=== PATIENT | female | born 1955 | race Caucasian/White ===

== ENCOUNTER 2017-03-17 08:21 | Inpatient (IN) | payer BC, OTHER ==
[2017-03-17] MEDS ORDERED: diltiaZEM INJ 5 MG/ML VIAL IVP STA (08:38)
[2017-03-17] MEDS ORDERED: diltiaZEM INJ 125 MG in DEXTROSE 5% 100 ML IV STA (08:40)
[2017-03-17] MEDS ORDERED: SODIUM CHLORIDE FLUSH 0.9% 10 ML SYRINGE IVP ONE (08:42)
[2017-03-17] MEDS ORDERED: diltiaZEM INJ 5 MG/ML VIAL ONE (08:42)
--- NOTE | 2017-03-17 08:42 | ED Physician Documentation ---
History of Present Illness - Stated complaint Stated Complaint: SOA - Chief complaint Chief Complaint: Resp - History obtained from History obtained from: Patient, Friend - History of Present Illness Timing: Today Pain level max: 0 Pain level now: 0 Improved by: nothing Worsened by: nothing - Additonal information Additional information: Patient is a 61-year-old female with a history of COPD who presents to the emergency department stating that she cannot breathe this morning. States this started approximately an hour or 2 prior to arrival. Is not having chest pain. Does feel like her heart is beating fast. Does not have a history of atrial fibrillation. Does not use oxygen at home. States she quit smoking approximately 2 weeks ago. Did not take her medications this morning Review of Systems Ten Systems: 10 systems reviewed and negative Constitutional: denies: Fever, Chills Ears: denies: Ear pain Nose: denies: Rhinorrhea / runny nose, Congestion Throat: denies: Sore throat Cardiac: denies: Chest pain / pressure Respiratory: denies: Cough GI: denies: Abdominal Pain, Nausea, Vomiting, Diarrhea : denies: Dysuria Skin: denies: Rash Musculoskeletal: denies: Neck pain, Back pain Neurologic: denies: Headache PD PAST MEDICAL HISTORY - Past Medical History Cardiovascular: Hypertension Respiratory: COPD Neuro: None Endocrine/Autoimmune: None GI: None : None HEENT: None Psych: Anxiety Musculoskeletal: None Derm: None - Past Surgical History Past Surgical History: Yes - Present Medications Home Medications: Ambulatory Orders Medication Instructions Recorded Confirmed Atorvastatin Calcium [Lipitor] 10 mg PO QPM 10/27/12 07/14/15 Lisinopril [Zestril] 40 mg PO DAILY 10/27/12 07/13/15 cloNIDine [Catapres] 0.2 mg PO BID 10/27/12 07/13/15 Amlodipine Besylate [Norvasc] 2.5 mg PO QPM 07/14/15 07/14/15 Carvedilol 25 mg PO BID 07/14/15 07/14/15 Ipratropium/Albuterol [Duoneb] 0.5 - 3 mg INH BID PRN 07/14/15 07/14/15 Omeprazole [PriLOSEC] 20 mg PO DAILY 07/14/15 07/14/15 - Allergies Allergies/Adverse Reactions: Allergies Allergy/AdvReac Type Severity Reaction Status Date / Time No Known Drug Allergies Allergy Verified 10/27/12 09:04 - Social History Does the pt smoke?: Yes Smoking Status: Current every day smoker Does the pt drink ETOH?: No Does the pt have substance abuse?: No PD ED PE NORMAL - Vitals Vital signs reviewed: Yes - General General: Alert and oriented X 3, Other (appears uncomfortable) - HEENT HEENT: Moist mucous membranes - Neck Neck: Supple, no meningeal sign - Cardiac Cardiac: Other (tachycardic) - Respiratory Respiratory: No respiratory distress, Other (diminished BS bilaterally.) - Abdomen Abdomen: Soft, Non tender, Non distended - Derm Derm: Warm and dry - Extremities Extremities: No edema, No calf tenderness / cord - Neuro Neuro: Alert and oriented X 3 Results - Vitals Vitals: Vital Signs - 24 hr 03/17/17 03/17/17 03/17/17 08:29 08:41 08:46 Temperature 36.8 C Heart Rate 191 H 190 H 128 H Respiratory 20 25 H 26 H Rate Blood Pressure 131/96 H 124/93 H O2 Saturation 89 L 92 93 03/17/17 03/17/17 03/17/17 08:50 08:51 09:11 Temperature Heart Rate 122 H Respiratory Rate Blood Pressure 96/72 77/60 L O2 Saturation 87 L 92 03/17/17 03/17/17 03/17/17 09:32 09:57 10:05 Temperature 37.1 C Heart Rate 127 H 129 H 112 H Respiratory 26 H Rate Blood Pressure 95/72 75/53 L 82/57 L O2 Saturation 95 95 Oxygen O2 Source Nasal cannula Oxygen Flow Rate 2 - EKG (time done) 0836 Rate: Rate (enter#) (199) Rhythm: Atrial fibrillation (w/ RVR) [place]: Normal QRS: Normal Ischemia: ST depression (rate related changes) - Labs Labs: Laboratory Tests 03/17/17 03/17/17 03/17/17 08:35 08:35 08:35 WBC 15.4 H RBC 4.14 L Hgb 12.1 Hct 36.9 L MCV 89.2 MCH 29.2 MCHC 32.8 RDW 18.6 H Plt Count 431 MPV 7.2 L Neut # 10.5 H Lymph # 3.1 [place] # 1.5 H Eos # 0.0 Baso # 0.2 H Absolute Nucleated RBC 0.01 Nucleated RBC % 0.1 PT INR Sodium 130 L Potassium 4.5 Chloride 92 L Carbon Dioxide 23 Anion Gap 15.0 H BUN 29 H Creatinine 1.4 H Estimated GFR (MDRD) 38 L Glucose 144 H Lactic Acid Calcium 9.2 Phosphorus 4.2 Magnesium 1.8 Total Bilirubin 0.8 AST 17 ALT 10 Alkaline Phosphatase 85 B-Natriuretic Peptide Total Protein 7.4 Albumin 3.5 Globulin 3.9 Albumin/Globulin Ratio 0.9 L Lipase 18 L 03/17/17 03/17/17 03/17/17 08:35 08:35 09:53 WBC RBC Hgb Hct MCV MCH MCHC RDW Plt Count MPV Neut # Lymph # [place] # Eos # Baso # Absolute Nucleated RBC Nucleated RBC % PT 12.3 INR 1.1 Sodium Potassium Chloride Carbon Dioxide Anion Gap BUN Creatinine Estimated GFR (MDRD) Glucose Lactic Acid 1.1 Calcium Phosphorus Magnesium Total Bilirubin AST ALT Alkaline Phosphatase B-Natriuretic Peptide 283 H Total Protein Albumin Globulin Albumin/Globulin Ratio Lipase - Rads (name of study) cxr Radiology: Prelim report reviewed, EMP read contemporaneously, See rad report ( Suspect mild interstitial edema or pneumonitis superimposed on emphysema) PD MEDICAL DECISION MAKING - ED course Complexity details: reviewed old records, reviewed results, re-evaluated patient , considered differential, d/w patient, d/w family, d/w showroom consultant ED course: Patient is a 61-year-old female who presents to the emergency department with dyspnea, found to be in atrial fibrillation with rapid ventricular response, heart rates 180-200. She was given diltiazem and heart rate decreased to 110- 130. Was followed up by oral diltiazem which did rate control her well. She was mildly hypotensive, but asymptomatic. States that her blood pressure is always low. States normal systolic is 90-100. Does not have a history of atrial fibrillation. Discussed the case with the hospitalist who accepts for admission. This document was made in part using voice recognition software. While efforts are made to proofread this document, sound alike and grammatical errors may occur. Departure - Departure Disposition: 64 [facility] DC/Xfer Clinical Impression: Atrial fibrillation with RVR, New onset a-fib Condition: Stable Discharge Date/Time: 03/17/17 11:19
[2017-03-17 08:54] LABS: BASOPHILS # (AUTO) 0.2 10^3/uL (0.0-0.1); BASOPHILS % (AUTO) 1.4 %; EOSINOPHILS % (AUTO) 0.1 %; HCT - HEMATOCRIT 36.9 % (37.0-47.0); HGB - HEMOGLOBIN 12.1 g/dL (12.0-16.0); LYMPHOCYTES # (AUTO) 3.1 10^3/uL (1.5-3.5); LYMPHOCYTES % (AUTO) 20.2 %; MEAN CORPUSCULAR HEMOGLOBIN 29.2 pg (27.0-31.0); MEAN CORPUSCULAR HGB CONC 32.8 g/dL (32.0-36.0); MEAN CORPUSCULAR VOLUME 89.2 fL (81.0-99.0); MEAN PLATELET VOLUME 7.2 fL (7.9-10.8); MONOCYTES # (AUTO) 1.5 10^3/uL (0.0-1.0); MONOCYTES % (AUTO) 9.7 %; NEUTROPHILS # (AUTO) 10.5 10^3/uL (1.5-6.6); NEUTROPHILS % (AUTO) 68.6 %; NUCLEATED RED BLOOD CELLS AUTO 0.1 /100WBC; RED BLOOD COUNT 4.14 10^6/uL (4.20-5.40); RED CELL DISTRIBUTION WIDTH 18.6 % (12.0-15.0); UNCORRECTED WHITE BLOOD COUNT 15.4 x10^3/uL; WHITE BLOOD COUNT 15.4 x10^3/uL (4.8-10.8)
[2017-03-17] MEDS ORDERED: SODIUM CHLORIDE 0.9% 1,000 ML IV ONE ×2 (09:05)
[2017-03-17 09:07] LABS: MAGNESIUM 1.8 mg/dL (1.7-2.8); PHOSPHORUS 4.2 mg/dL (2.5-4.6)
[2017-03-17 09:08] LABS: ALBUMIN/GLOBULIN RATIO 0.9 (1.0-2.2); BILIRUBIN,TOTAL 0.8 mg/dL (0.2-1.0); CALCIUM 9.2 mg/dL (8.5-10.3); CREATININE 1.4 mg/dL (0.4-1.0); POTASSIUM 4.5 mmol/L (3.5-5.0); TOTAL PROTEIN 7.4 g/dL (6.7-8.2)
--- NOTE | 2017-03-17 09:22 | XRAY Preliminary Report ---
Exam: XR Chest 1 View IMPRESSION: Suspect mild interstitial edema or pneumonitis superimposed on emphysema. [facility] SITE ID: [id number]
--- NOTE | 2017-03-17 09:25 | XRAY Report ---
EXAM: CHEST RADIOGRAPHY EXAM DATE: 03/17/2017 08:56 AM. CLINICAL HISTORY: Dyspnea, increased HR. COMPARISON: 08/06/2015. TECHNIQUE: 1 view. FINDINGS: Lungs/Pleura: Interstitial markings are increased consistent with mild edema or pneumonitis. This is superimposed on underlying emphysema. Left basilar atelectasis is likely. No pneumothorax or pleural effusion Mediastinum: The cardia mediastinal contour is again noted to be prominent, the appearance is accentu ated by kyphosis. IMPRESSION: Suspect mild interstitial edema or pneumonitis superimposed on emphysema. [facility] Referring Provider Line: [phone] SITE ID: [id number]
[2017-03-17] MEDS ORDERED: diltiaZEM 30 MG TABLET PO STA (10:13)
[2017-03-17] MEDS ORDERED: ACETAMINOPHEN 325 MG TABLET PO PRN (10:54)
[2017-03-17] MEDS ORDERED: PROCHLORPERAZINE 10 MG/2 ML VIAL IVP PRN (10:54)
[2017-03-17] MEDS ORDERED: diltiaZEM 30 MG TABLET PO ONE (11:07)
[2017-03-17 11:32] LABS: INR 1.1 (0.8-1.2); PT - PROTHROMBIN TIME 12.3 secs (9.9-12.6)
[2017-03-17] MEDS ORDERED: DIGOXIN 500 MCG/2 ML AMP IVP SCH ×2 (14:00→17:00)
[2017-03-17] MEDS ORDERED: diltiaZEM 30 MG TABLET PO SCH ×2 (14:00→15:00)
[2017-03-17] MEDS ORDERED: DEXTROSE 5% 100 ML IV ONE (14:21)
[2017-03-17] MEDS: ENOXAPARIN 40 MG/0.4 ML SYRINGE SUBQ SCH ×2 (14:29→21:49)
[2017-03-17] MEDS: SODIUM CHLORIDE FLUSH 0.9% 10 ML SYRINGE IVP SCH ×2 (14:40→22:18)
[2017-03-17] MEDS: FAMOTIDINE 20 MG TABLET PO SCH (14:44)
[2017-03-17] MEDS ORDERED: AZITHROMYCIN 250 MG TABLET PO SCH (15:00)
[2017-03-17] MEDS: guaiFENesin 600 MG TABLET PO SCH ×2 (15:18→21:50)
[2017-03-17] MEDS: IPRATROPIUM 0.2 MG/ML NEB INH SCH ×2 (17:25→19:15)
[2017-03-17] MEDS: LEVALBUTEROL 1.25 MG INH PRN ×2 (17:25→19:15)
[2017-03-17] MEDS ORDERED: IPRATROPIUM/ALBUTEROL 3 ML NEB INH SCH (18:00)
[2017-03-17] MEDS: LORazepam 0.5 MG TABLET PO PRN (18:05)
[2017-03-17] MEDS: diltiaZEM 30 MG TABLET PO SCH (21:49)
[2017-03-17] MEDS: methylPREDNISolone SUCCINATE 125 MG/2 ML VIAL IVP SCH (21:50)
--- NOTE | 2017-03-18 01:13 | HISTORY & PHYSICAL EXAMINATION ---
DATE OF ADMISSION: 03/17/2017 HISTORY OF PRESENT ILLNESS: This is a 61-year-old white female with a heavy smoking history, and she has intermittently stopped. She has been told that she has emphysema but does not know the severity. She does not use oxygen at home. She has a history of Takotsubo cardiomyopathy, for which she is on carvedilol and FORTINO inhibitors. The status of the EF is not known by her. The patient presents with upper respiratory congestion including a cough with minimal sputum production, no fever, but marked shortness of breath with wheezing and elevated respiratory rate with "panic attack." She has never had anxiety or panic attacks before. She was found to have wheezing in the emergency room and also to be in new onset of atrial fibrillation with a rate of 180. She received IV Cardizem bolus of 20 mg, which slowed her heart rate down to the 110 range, still in atrial fibrillation. She does not feel palpitations. She denies angina with these symptoms. She is compliant with her medications. MEDICATIONS AT HOME 1. Lipitor. 2. Zestril. 3. Clonidine. 4. Norvasc. 5. Carvedilol 25 p.o. b.i.d. 6. DuoNeb. 7. Prilosec. ALLERGIES: NONE. SOCIAL HISTORY: She is a smoker of a pack a day, uses no alcohol, denies drug use. REVIEW OF SYSTEMS: A complete 10-point review of systems was done, and the pertinent positives or negatives are in the HPI and the rest of review of systems is negative. FAMILY HISTORY: No family history of coronary disease or diabetes. PHYSICAL EXAMINATION GENERAL: Reveals a white female who appears older than her age. She is in mild respiratory distress and has increased respiratory rate. VITAL SIGNS: Blood pressure 85/50, heart rate is 100-130 in atrial fibrillation. She is afebrile. HEENT: Shows moist oral mucosa and rubor of her cheeks and lips. NECK: Shows positive JVD in a vertical position. CHEST: Diffuse wheezing with a prolonged expiratory phase. No rales or rhonchi are heard. HEART: Sounds are distant. No murmurs heard. ABDOMEN: Soft. EXTREMITIES: No clubbing, cyanosis, or edema. NEUROLOGIC: Grossly intact. LABORATORIES: Troponin is not detected. Sodium 130, potassium 4.5, BUN 29, creatinine 1.4. Liver tests normal. BNP 283. White blood count 15.4 with a left shift, hemoglobin 12.2, platelet count normal. INR normal. Chest x-ray: CHF. EKG: Atrial fibrillation with a very rapid rate, non-specific diffuse ST-T-wave changes. A repeat EKG shows slightly slower atrial fibrillation, but similar ST- T abnormality. IMPRESSION/DIAGNOSIS 1. New onset of atrial fibrillation with rapid ventricular rate. 2. Hypotension following Cardizem iv bolus given in ER 3. Chronic obstructive pulmonary disease exacerbation with probable bronchitis ( cough). 4. New congestive heart failure by chest x-ray. 5. Remote history of Takotsubo cardiomyopathy, on Coreg and angiotensin- converting enzyme inhibitors. 6. Tobacco abuse. 7. Mild renal insufficiency. PLAN: Since the patient is warm and dry, her low BP can be managed in a Med-Srg room. Place the patient on telemetry and continue to treat the atrial fibrillation for rate control, using digoxin with a loading dose. Due to the low BP, start low dose spread-out p.o. Cardizem for the rate control. Start the patient on therapeutic doses of Lovenox given that her CHADS score is 2 (CHF and possible history of hypertension). Start the patient on Zithromax for bronchitis along with inhalers (Xoponex preferred) and IV steroids for the COPD exacerbation. Obtain records from prior cardiac work-up, if possible. Obtain an echo to reestablish LVEF and rule out Takotsubo continued remodeling. Follow her electrolytes, magnesium and creatinine as diuresis continues. JOB #: [id number] EXT JOB #:[id number] ISRA
[2017-03-18] MEDS: guaiFENesin/DEXTROMETHORPHAN 10 ML UDC PO PRN ×2 (01:42→20:26)
[2017-03-18] MEDS: diltiaZEM 30 MG TABLET PO SCH ×4 (01:42→20:25)
[2017-03-18] MEDS: LEVALBUTEROL 1.25 MG INH PRN ×2 (02:00→07:30)
[2017-03-18] MEDS: SODIUM CHLORIDE INHALATION 3 ML NEB INH PRN (02:00)
[2017-03-18] MEDS: BENZOCAINE/MENTHOL LOZENGE MM PRN ×2 (03:29→05:49)
[2017-03-18] MEDS ORDERED: BENZOCAINE/MENTHOL LOZENGE MM ONE ×2 (03:31→05:51)
[2017-03-18] MEDS: SODIUM CHLORIDE FLUSH 0.9% 10 ML SYRINGE IVP SCH ×3 (05:38→17:20)
[2017-03-18] MEDS: methylPREDNISolone SUCCINATE 125 MG/2 ML VIAL IVP SCH ×3 (05:38→21:00)
[2017-03-18] MEDS: SODIUM CHLORIDE FLUSH 0.9% 10 ML SYRINGE IVP PRN (05:39)
[2017-03-18 06:30] LABS: CALCIUM 8.6 mg/dL (8.5-10.3); CREATININE 0.6 mg/dL (0.4-1.0); POTASSIUM 4.7 mmol/L (3.5-5.0)
--- NOTE | 2017-03-18 06:41 | XRAY Preliminary Report ---
Exam: XR Chest 1 View IMPRESSION: 1. Cardiomegaly with mildly increased pulmonary opacities. [facility] SITE ID: [id number]
--- NOTE | 2017-03-18 06:43 | XRAY Report ---
EXAM: CHEST RADIOGRAPHY EXAM DATE: 03/18/2017 06:13 AM. CLINICAL HISTORY: Follow-up congestive heart failure. COMPARISON: 03/17/2017. TECHNIQUE: 1 view. FINDINGS: Lungs/Pleura: Mildly increased pulmonary opacities. Minimal if any pleural effusions. No pneumothorax . Mediastinum: Mild cardiomegaly. Aortic atherosclerosis. Other: None. IMPRESSION: 1. Cardiomegaly with mildly increased pulmonary opacities. [facility] Referring Provider Line: [phone] SITE ID: [id number]
[2017-03-18] MEDS: IPRATROPIUM 0.2 MG/ML NEB INH SCH ×4 (07:30→19:00)
[2017-03-18] MEDS ORDERED: FUROSEMIDE 20 MG/2 ML VIAL IVP SCH (09:00)
[2017-03-18] MEDS: AZITHROMYCIN 250 MG TABLET PO SCH (09:57)
[2017-03-18] MEDS: ENOXAPARIN 40 MG/0.4 ML SYRINGE SUBQ SCH (10:01)
[2017-03-18] MEDS: FAMOTIDINE 20 MG TABLET PO SCH (10:02)
[2017-03-18] MEDS: guaiFENesin 600 MG TABLET PO SCH ×2 (10:02→20:48)
[2017-03-18] MEDS: POLYETHYLENE GLYCOL 3350 17 GM PACKET PO SCH (10:03)
[2017-03-18] MEDS: LEVALBUTEROL 1.25 MG INH SCH ×3 (11:20→19:00)
--- NOTE | 2017-03-18 18:27 | PROVIDER PROGRESS NOTE ---
Assessment/Plan - Problem List (1) Atrial fibrillation with RVR Assessment/Plan: Continue Cardizem and will adjust to CD dose starting tomorrow Stop Lovenox and start Xarelto 20 mg po at dinner time due to CHADS score of 2 ( CHF and HTN) (2) COPD exacerbation Assessment/Plan: Improved on steroids, inhalers and antibiotics Will assess with increased activity Probable DCh tomorrow (3) Takotsubo cardiomyopathy Assessment/Plan: Normal LVEF but Pt still on Coreg and FORTINO-I - Current Meds Current Meds: Current Medications Generic Name Dose Route Start Last Admin Trade Name Freq PRN Reason Stop Dose Admin Azithromycin 250 mg 03/18/17 09:00 03/18/17 09:57 Zithromax PO 250 mg DAILY MATTHEW Administration Diltiazem HCl 30 mg 03/17/17 20:00 03/18/17 13:50 Cardizem PO 30 mg Q6H MATTHEW Administration Enoxaparin Sodium 40 mg 03/17/17 11:00 03/18/17 10:01 Lovenox SUBQ 40 mg BID MATTHEW Administration Famotidine 20 mg 03/17/17 11:00 03/18/17 10:02 Pepcid PO 20 mg DAILY MATTHEW Administration Furosemide 20 mg 03/18/17 09:00 03/18/17 10:25 Lasix Inj 20mg Vial IVP 20 mg DAILY MATTHEW Administration Guaifenesin 10 ml 03/17/17 14:59 03/18/17 01:42 Robitussin Dm PO 10 ml Q6HR PRN Administration Cough Guaifenesin 1,200 mg 03/17/17 15:00 03/18/17 10:02 Mucinex PO 1,200 mg BID MATTHEW Administration Ipratropium [place] 0.5 mg 03/18/17 11:00 03/18/17 16:30 Atrovent INH 0.5 mg RTQID MATTHEW Administration Levalbuterol HCl 1.25 mg 03/17/17 17:13 03/18/17 07:30 Xopenex INH 1.25 mg Q4H PRN Administration Wheezing Levalbuterol HCl 1.25 mg 03/18/17 11:00 03/18/17 16:30 Xopenex INH 1.25 mg RTQID MATTHEW Administration Lorazepam 0.5 mg 03/17/17 17:14 03/17/17 18:05 Ativan PO 0.5 mg Q6H PRN Administration Anxiety Methylprednisolone Sodium Succinate 80 mg 03/17/17 22:00 03/18/17 13:52 Solu-Medrol (125mg Vial) IVP 80 mg TID MATTHEW Administration Polyethylene Glycol 17 gm 03/18/17 09:00 03/18/17 10:03 Miralax PO Not Given DAILY MATTHEW Sodium Chloride 10 ml 03/17/17 10:54 03/18/17 05:39 Normal Saline Flush 0.9% IVP 10 ml PRN PRN Administration NEEDED PER PROVIDER ORDERS Sodium Chloride 10 ml 03/17/17 14:00 03/18/17 17:20 Normal Saline Flush 0.9% IVP 10 ml Q8HR MATTHEW Administration Sodium Chloride 3 ml 03/17/17 17:13 03/18/17 02:00 Normal Saline INH 3 ml PRN PRN Administration Levalbuterol treatment Throat Lozenges 1 lozenge 03/18/17 03:12 03/18/17 05:49 Cepacol MM 1 lozenge Q2HR PRN Administration Throat pain - Lab Result Fish Bone Diagrams: 03/17/17 08:35 03/18/17 06:09 - Additional Planning My Orders: My Active Orders 03/17/17 20:00 diltiaZEM [Cardizem] 30 mg PO Q6H 03/17/17 22:00 methylPREDNISolone SUCCINATE [SOLU-Medrol (125MG VIAL)] 80 mg IVP TID 03/18/17 03:12 Benzocaine/Menthol [Cepacol] 1 lozenge MM Q2HR PRN 03/18/17 09:00 Azithromycin [Zithromax] 250 mg PO DAILY FUROSEMIDE INJ 20mg VIAL [LASIX INJ 20mg VIAL] 20 mg IVP DAILY 03/18/17 11:00 Ipratropium [Atrovent] 0.5 mg INH RTQID Levalbuterol [Xopenex] 1.25 mg INH RTQID 03/18/17 16:10 Telemetry (24 Hour) [RC] Q4HR 03/19/17 05:00 BMP - BASIC METABOLIC PANEL [CHEM] DAILYLAB MAGNESIUM [CHEM] DAILYLAB Subjective - Subjective Patient Reports: Feeling Better, Resting Comfortably Nursing Reports: Other (Much improved with inhalers Overnight went into NSR In afternoon, wandering atrial pacemaker rhythm) Objective Vital Signs: Vital Signs - 24 hr 03/17/17 03/17/17 03/18/17 19:15 20:08 00:08 Temperature 37.3 C 37.0 C Heart Rate 86 Heart Rate [ 82 82 Brachial] Respiratory 18 16 18 Rate Blood Pressure Blood Pressure 86/45 L 110/73 [Right Brachial artery] O2 Saturation 96 94 03/18/17 03/18/17 03/18/17 01:42 02:00 05:00 Temperature 36.7 C Heart Rate 82 Heart Rate [ 75 Brachial] Respiratory 18 18 Rate Blood Pressure 103/73 Blood Pressure 112/70 [Right Brachial artery] O2 Saturation 96 03/18/17 03/18/17 03/18/17 07:30 07:39 09:57 Temperature 36.6 C Heart Rate 84 Heart Rate [ 78 Brachial] Respiratory 18 18 Rate Blood Pressure 105/80 Blood Pressure 125/82 H [Right Brachial artery] O2 Saturation 95 03/18/17 03/18/17 03/18/17 10:07 11:20 14:18 Temperature Heart Rate 82 Heart Rate [ 70 Brachial] Respiratory 18 18 Rate Blood Pressure Blood Pressure 105/80 [Right Brachial artery] O2 Saturation 92 85 L 03/18/17 03/18/17 15:54 16:30 Temperature 36.8 C Heart Rate 96 Heart Rate [ 87 Brachial] Respiratory 16 14 Rate Blood Pressure Blood Pressure 124/83 H [Right Brachial artery] O2 Saturation 4 L Oxygen O2 Source Nasal cannula I&O (Last 24 Hrs): Intake and Output Totals x24h 03/16/17 03/17/17 03/18/17 23:59 23:59 23:59 Intake Total 1370 1000 Balance 1370 1000 General: Alert, Oriented x3 HEENT: Mucous membr. moist/pink Neck: Supple Cardiovascular: Regular rate, No murmurs Respiratory: Other (Prolonged expiratory phase but no wheezing) Abdomen: Soft Extremities: No edema - Results Results: Laboratory Results WBC 15.4 x10^3/uL (4.8-10.8) H 03/17/17 08:35 RBC 4.14 10^6/uL (4.20-5.40) L 03/17/17 08:35 Hgb 12.1 g/dL (12.0-16.0) 03/17/17 08:35 Hct 36.9 % (37.0-47.0) L 03/17/17 08:35 MCV 89.2 fL (81.0-99.0) 03/17/17 08:35 MCH 29.2 pg (27.0-31.0) 03/17/17 08:35 MCHC 32.8 g/dL (32.0-36.0) 03/17/17 08:35 RDW 18.6 % (12.0-15.0) H 03/17/17 08:35 Plt Count 431 10^3/uL (130-450) 03/17/17 08:35 MPV 7.2 fL (7.9-10.8) L 03/17/17 08:35 Neut # 10.5 10^3/uL (1.5-6.6) H 03/17/17 08:35 Lymph # 3.1 10^3/uL (1.5-3.5) 03/17/17 08:35 [place] # 1.5 10^3/uL (0.0-1.0) H 03/17/17 08:35 Eos # 0.0 10^3/uL (0.0-0.7) 03/17/17 08:35 Baso # 0.2 10^3/uL (0.0-0.1) H 03/17/17 08:35 Absolute Nucleated RBC 0.01 x10^3/uL 03/17/17 08:35 Nucleated RBC % 0.1 /100WBC 03/17/17 08:35 PT 12.3 secs (9.9-12.6) 03/17/17 08:35 INR 1.1 (0.8-1.2) 03/17/17 08:35 Sodium 129 mmol/L (135-145) L 03/18/17 06:09 Potassium 4.7 mmol/L (3.5-5.0) 03/18/17 06:09 Chloride 95 mmol/L (101-111) L 03/18/17 06:09 Carbon Dioxide 24 mmol/L (21-32) 03/18/17 06:09 Anion Gap 10.0 (6-13) 03/18/17 06:09 BUN 17 mg/dL (6-20) 03/18/17 06:09 Creatinine 0.6 mg/dL (0.4-1.0) 03/18/17 06:09 Estimated GFR (MDRD) 101 (>89) 03/18/17 06:09 Glucose 167 mg/dL (70-100) H 03/18/17 06:09 Lactic Acid 1.1 mmol/L (0.5-2.2) 03/17/17 09:53 Calcium 8.6 mg/dL (8.5-10.3) 03/18/17 06:09 Phosphorus 4.2 mg/dL (2.5-4.6) 03/17/17 08:35 Magnesium 1.8 mg/dL (1.7-2.8) 03/17/17 08:35 Total Bilirubin 0.8 mg/dL (0.2-1.0) 03/17/17 08:35 AST 17 IU/L (10-42) 03/17/17 08:35 ALT 10 IU/L (10-60) 03/17/17 08:35 Alkaline Phosphatase 85 IU/L (42-121) 03/17/17 08:35 Troponin I 0.18 ng/mL (<0.49) 03/17/17 15:12 B-Natriuretic Peptide 283 pg/mL (5-100) H 03/17/17 08:35 Total Protein 7.4 g/dL (6.7-8.2) 03/17/17 08:35 Albumin 3.5 g/dL (3.2-5.5) 03/17/17 08:35 Globulin 3.9 g/dL (2.1-4.2) 03/17/17 08:35 Albumin/Globulin Ratio 0.9 (1.0-2.2) L 03/17/17 08:35 Lipase 18 U/L (22-51) L 03/17/17 08:35 Free T4 1.03 ng/dL (0.58-1.64) 03/18/17 06:09 - Procedures Procedures: Procedures ASSIST W CARDIAC OUTPUT W PULS COMPRESSION, CONTINUOUS (07/13/15) ASSISTANCE WITH RESPIRATORY VENTILATION, 24-96 HRS, CPAP (07/13/15) DRAINAGE OF R PLEURAL CAV WITH DRAIN DEV, PERC APPROACH (07/13/15) INSERTION OF ENDOTRACHEAL AIRWAY INTO TRACHEA, VIA OPENING (07/13/15) INSERTION OF INFUSION DEV INTO SUP VENA CAVA, PERC APPROACH (07/13/15) INTRODUCTION OF NUTRITIONAL INTO CENTRAL VEIN, PERC APPROACH (07/13/15) MONITORING OF VENOUS PRESSURE, CENTRAL, PERC APPROACH (07/13/15) RESECTION OF APPENDIX, OPEN APPROACH (07/13/15) RESPIRATORY VENTILATION, 24-96 CONSECUTIVE HOURS (07/13/15)
[2017-03-18] MEDS ORDERED: RIVAROXABAN 10 MG TABLET PO SCH (19:00)
[2017-03-18] MEDS: CETIRIZINE 10 MG TABLET PO SCH (21:00)
[2017-03-19] MEDS: BENZOCAINE/MENTHOL LOZENGE MM PRN (01:41)
[2017-03-19] MEDS: diltiaZEM 30 MG TABLET PO SCH (01:41)
[2017-03-19] MEDS: guaiFENesin/DEXTROMETHORPHAN 10 ML UDC PO PRN ×2 (03:22→10:04)
[2017-03-19] MEDS: SODIUM CHLORIDE FLUSH 0.9% 10 ML SYRINGE IVP SCH ×3 (06:08→22:25)
[2017-03-19] MEDS: SODIUM CHLORIDE FLUSH 0.9% 10 ML SYRINGE IVP PRN (06:08)
[2017-03-19] MEDS: methylPREDNISolone SUCCINATE 125 MG/2 ML VIAL IVP SCH ×3 (06:08→22:25)
[2017-03-19 06:19] LABS: CALCIUM 8.9 mg/dL (8.5-10.3); CREATININE 0.7 mg/dL (0.4-1.0); MAGNESIUM 1.5 mg/dL (1.7-2.8); POTASSIUM 4.7 mmol/L (3.5-5.0)
[2017-03-19] MEDS ORDERED: MAGNESIUM SULFATE 2 GRAM 2 GM/50 ML BAG IV SCH (08:00)
[2017-03-19] MEDS: diltiaZEM CD 120 MG CAPSULE PO SCH ×2 (08:45→08:47)
[2017-03-19] MEDS: AZITHROMYCIN 250 MG TABLET PO SCH (08:47)
[2017-03-19] MEDS: guaiFENesin 600 MG TABLET PO SCH ×2 (08:47→22:25)
[2017-03-19] MEDS: FAMOTIDINE 20 MG TABLET PO SCH (08:47)
[2017-03-19] MEDS: CETIRIZINE 10 MG TABLET PO SCH (08:47)
[2017-03-19] MEDS: POLYETHYLENE GLYCOL 3350 17 GM PACKET PO SCH (08:50)
[2017-03-19] MEDS: LEVALBUTEROL 1.25 MG INH SCH ×4 (11:49→23:55)
[2017-03-19] MEDS: IPRATROPIUM 0.2 MG/ML NEB INH SCH ×4 (11:50→23:55)
[2017-03-19] MEDS: LORazepam 0.5 MG TABLET PO PRN (16:05)
[2017-03-19] MEDS ORDERED: NITROGLYCERIN SL 0.4 MG TABLET SL ONE (16:11)
[2017-03-19 17:22] LABS: BASOPHILS % (AUTO) 0.1 %; HCT - HEMATOCRIT 34.1 % (37.0-47.0); LYMPHOCYTES # (AUTO) 0.8 10^3/uL (1.5-3.5); LYMPHOCYTES % (AUTO) 6.1 %; MEAN CORPUSCULAR HEMOGLOBIN 28.9 pg (27.0-31.0); MEAN CORPUSCULAR HGB CONC 32.2 g/dL (32.0-36.0); MEAN CORPUSCULAR VOLUME 89.6 fL (81.0-99.0); MEAN PLATELET VOLUME 6.5 fL (7.9-10.8); MONOCYTES # (AUTO) 0.3 10^3/uL (0.0-1.0); MONOCYTES % (AUTO) 2.3 %; NEUTROPHILS # (AUTO) 11.5 10^3/uL (1.5-6.6); NEUTROPHILS % (AUTO) 91.5 %; RED BLOOD COUNT 3.81 10^6/uL (4.20-5.40); RED CELL DISTRIBUTION WIDTH 18.3 % (12.0-15.0); UNCORRECTED WHITE BLOOD COUNT 12.6 x10^3/uL; WHITE BLOOD COUNT 12.6 x10^3/uL (4.8-10.8)
--- NOTE | 2017-03-19 17:39 | PROVIDER PROGRESS NOTE ---
Assessment/Plan - Problem List (1) Epigastric abdominal pain Assessment/Plan: Pt had sudden onset after eating and "needed to lie supine" which has been a problem for 1 year. EKG showed no new chanhes and sl NTG did relieve her sx. Will request Surgical consult for EGD for poss stricture. (2) Atrial fibrillation with RVR Assessment/Plan: Resolved. Pt in NSR with frequent PACs. Pt had blood clots in toilet (?vaginal bleeding vs hematuria) today. Will stop Xarelto and monitor H/H. (3) COPD exacerbation Assessment/Plan: Scattered wheezes but good air movement today. Oximetry done on R.A. because Pt "refuses to be on home O2) and she was desaturating <90%. Continue Zpak course and inhalers and steroids (4) Takotsubo cardiomyopathy Assessment/Plan: Resolved, by Echo done here Continue Coreg and FORTINO-I - Current Meds Current Meds: Current Medications Generic Name Dose Route Start Last Admin Trade Name Freq PRN Reason Stop Dose Admin Azithromycin 250 mg 03/18/17 09:00 03/19/17 08:47 Zithromax PO 250 mg DAILY MATTHEW Administration Cetirizine HCl 10 mg 03/18/17 21:00 03/19/17 08:47 Zyrtec PO 10 mg DAILY MATTHEW Administration Diltiazem HCl 120 mg 03/19/17 08:00 03/19/17 08:47 Cardizem Cd PO 120 mg DAILY MATTHEW Administration Famotidine 20 mg 03/17/17 11:00 03/19/17 08:47 Pepcid PO 20 mg DAILY MATTHEW Administration Guaifenesin 10 ml 03/17/17 14:59 03/19/17 10:04 Robitussin Dm PO 10 ml Q6HR PRN Administration Cough Guaifenesin 1,200 mg 03/17/17 15:00 03/19/17 08:47 Mucinex PO 1,200 mg BID MATTHEW Administration Ipratropium [place] 0.5 mg 03/18/17 11:00 03/19/17 11:50 Atrovent INH 0.5 mg RTQID MATTHEW Administration Levalbuterol HCl 1.25 mg 03/17/17 17:13 03/18/17 07:30 Xopenex INH 1.25 mg Q4H PRN Administration Wheezing Levalbuterol HCl 1.25 mg 10/01/17 11:00 03/19/17 11:49 Xopenex INH 1.25 mg RTQID MATTHEW Administration Lorazepam 0.5 mg 03/17/17 17:14 03/19/17 16:05 Ativan PO 0.5 mg Q6H PRN Administration Anxiety Methylprednisolone Sodium Succinate 80 mg 03/17/17 22:00 03/19/17 13:47 Solu-Medrol (125mg Vial) IVP 80 mg TID MATTHEW Administration Polyethylene Glycol 17 gm 03/18/17 09:00 03/19/17 08:50 Miralax PO Not Given DAILY MATTHEW Rivaroxaban 20 mg 03/18/17 19:00 03/18/17 20:26 Xarelto PO 20 mg 1700 MATTHEW Administration Sodium Chloride 10 ml 03/17/17 10:54 03/19/17 06:08 Normal Saline Flush 0.9% IVP 10 ml PRN PRN Administration NEEDED PER PROVIDER ORDERS Sodium Chloride 10 ml 03/17/17 14:00 03/19/17 13:48 Normal Saline Flush 0.9% IVP 10 ml Q8HR MATTHEW Administration Sodium Chloride 3 ml 03/17/17 17:13 03/18/17 02:00 Normal Saline INH 3 ml PRN PRN Administration Levalbuterol treatment Throat Lozenges 1 lozenge 03/18/17 03:12 03/19/17 01:41 Cepacol MM 1 lozenge Q2HR PRN Administration Throat pain - Lab Result Fish Bone Diagrams: 03/19/17 17:14 03/19/17 05:50 - Additional Planning My Orders: My Active Orders 03/18/17 19:00 Rivaroxaban [Xarelto] 20 mg PO 1700 03/19/17 08:00 diltiaZEM CD [Cardizem Cd] 120 mg PO DAILY Subjective - Subjective Patient Reports: Feeling Better Nursing Reports: Other (Pt had sudden epigastric pain this afternoon, after a sandwich. BP elevated and HR was 100 in sinus.) Objective Vital Signs: Vital Signs - 24 hr 03/18/17 03/18/17 03/18/17 19:00 20:15 22:20 Temperature 36.7 C Heart Rate 92 Heart Rate [ 89 Brachial] Respiratory 16 16 Rate Blood Pressure Blood Pressure 123/80 [Right Brachial artery] O2 Saturation 93 4 L 03/19/17 03/19/17 03/19/17 00:10 01:41 05:44 Temperature 36.7 C 36.9 C Heart Rate Heart Rate [ 72 67 Brachial] Respiratory 16 16 Rate Blood Pressure 124/77 Blood Pressure 104/59 L 104/62 [Right Brachial artery] O2 Saturation 99 100 03/19/17 03/19/17 03/19/17 08:46 13:15 14:58 Temperature 36.7 C 36.7 C Heart Rate 98 Heart Rate [ 69 78 Brachial] Respiratory 18 18 Rate Blood Pressure Blood Pressure 139/92 H 143/91 H [Right Brachial artery] O2 Saturation 97 96 03/19/17 03/19/17 16:05 16:13 Temperature 36.5 C Heart Rate 100 Heart Rate [ 109 H Brachial] Respiratory 22 Rate Blood Pressure 151/112 H Blood Pressure 159/112 H [Right Brachial artery] O2 Saturation 4 L Oxygen O2 Source Nasal cannula I&O (Last 24 Hrs): Intake and Output Totals x24h 03/17/17 03/18/17 03/19/17 23:59 23:59 23:59 Intake Total 1370 1500 570 Balance 1370 1500 570 - Results Results: Laboratory Results WBC 12.6 x10^3/uL (4.8-10.8) H 03/19/17 17:14 RBC 3.81 10^6/uL (4.20-5.40) L 03/19/17 17:14 Hgb 11.0 g/dL (12.0-16.0) L 03/19/17 17:14 Hct 34.1 % (37.0-47.0) L 03/19/17 17:14 MCV 89.6 fL (81.0-99.0) 03/19/17 17:14 MCH 28.9 pg (27.0-31.0) 03/19/17 17:14 MCHC 32.2 g/dL (32.0-36.0) 03/19/17 17:14 RDW 18.3 % (12.0-15.0) H 03/19/17 17:14 Plt Count 514 10^3/uL (130-450) H 03/19/17 17:14 MPV 6.5 fL (7.9-10.8) L 03/19/17 17:14 Neut # 11.5 10^3/uL (1.5-6.6) H 03/19/17 17:14 Lymph # 0.8 10^3/uL (1.5-3.5) L 03/19/17 17:14 [place] # 0.3 10^3/uL (0.0-1.0) 03/19/17 17:14 Eos # 0.0 10^3/uL (0.0-0.7) 03/19/17 17:14 Baso # 0.0 10^3/uL (0.0-0.1) 03/19/17 17:14 Absolute Nucleated RBC 0.00 x10^3/uL 03/19/17 17:14 Nucleated RBC % 0.0 /100WBC 03/19/17 17:14 PT 12.3 secs (9.9-12.6) 03/17/17 08:35 INR 1.1 (0.8-1.2) 03/17/17 08:35 Sodium 132 mmol/L (135-145) L 03/19/17 05:50 Potassium 4.7 mmol/L (3.5-5.0) 03/19/17 05:50 Chloride 95 mmol/L (101-111) L 03/19/17 05:50 Carbon Dioxide 28 mmol/L (21-32) 03/19/17 05:50 Anion Gap 9.0 (6-13) 03/19/17 05:50 BUN 21 mg/dL (6-20) H 03/19/17 05:50 Creatinine 0.7 mg/dL (0.4-1.0) 03/19/17 05:50 Estimated GFR (MDRD) 85 (>89) L 03/19/17 05:50 Glucose 158 mg/dL (70-100) H 03/19/17 05:50 Lactic Acid 1.1 mmol/L (0.5-2.2) 03/17/17 09:53 Calcium 8.9 mg/dL (8.5-10.3) 03/19/17 05:50 Phosphorus 4.2 mg/dL (2.5-4.6) 03/17/17 08:35 Magnesium 1.5 mg/dL (1.7-2.8) L 03/19/17 05:50 Total Bilirubin 0.8 mg/dL (0.2-1.0) 03/17/17 08:35 AST 17 IU/L (10-42) 03/17/17 08:35 ALT 10 IU/L (10-60) 03/17/17 08:35 Alkaline Phosphatase 85 IU/L (42-121) 03/17/17 08:35 Troponin I 0.18 ng/mL (<0.49) 03/17/17 15:12 B-Natriuretic Peptide 283 pg/mL (5-100) H 03/17/17 08:35 Total Protein 7.4 g/dL (6.7-8.2) 03/17/17 08:35 Albumin 3.5 g/dL (3.2-5.5) 03/17/17 08:35 Globulin 3.9 g/dL (2.1-4.2) 03/17/17 08:35 Albumin/Globulin Ratio 0.9 (1.0-2.2) L 03/17/17 08:35 Lipase 18 U/L (22-51) L 03/17/17 08:35 Free T4 1.03 ng/dL (0.58-1.64) 03/18/17 06:09 - Procedures Procedures: Procedures ASSIST W CARDIAC OUTPUT W PULS COMPRESSION, CONTINUOUS (07/13/15) ASSISTANCE WITH RESPIRATORY VENTILATION, 24-96 HRS, CPAP (07/13/15) DRAINAGE OF R PLEURAL CAV WITH DRAIN DEV, PERC APPROACH (07/13/15) INSERTION OF ENDOTRACHEAL AIRWAY INTO TRACHEA, VIA OPENING (07/13/15) INSERTION OF INFUSION DEV INTO SUP VENA CAVA, PERC APPROACH (07/13/15) INTRODUCTION OF NUTRITIONAL INTO CENTRAL VEIN, PERC APPROACH (07/13/15) MONITORING OF VENOUS PRESSURE, CENTRAL, PERC APPROACH (07/13/15) RESECTION OF APPENDIX, OPEN APPROACH (07/13/15) RESPIRATORY VENTILATION, 24-96 CONSECUTIVE HOURS (07/13/15)
[2017-03-19] MEDS: hydroCHLOROthiazide 12.5 MG CAPSULE PO SCH (19:05)
[2017-03-19] MEDS: LISINOPRIL 20 MG TABLET PO SCH (19:54)
[2017-03-19] MEDS: SODIUM CHLORIDE INHALATION 3 ML NEB INH PRN (23:50)
[2017-03-19] MEDS: LEVALBUTEROL 1.25 MG INH PRN (23:50)
[2017-03-20] MEDS: LORazepam 0.5 MG TABLET PO PRN ×2 (00:37→20:45)
[2017-03-20] MEDS: guaiFENesin/DEXTROMETHORPHAN 10 ML UDC PO PRN ×3 (00:37→20:51)
[2017-03-20] MEDS: SODIUM CHLORIDE INHALATION 3 ML NEB INH PRN (04:48)
[2017-03-20] MEDS: LEVALBUTEROL 1.25 MG INH PRN (04:49)
[2017-03-20] MEDS: SODIUM CHLORIDE FLUSH 0.9% 10 ML SYRINGE IVP SCH ×3 (06:31→20:44)
[2017-03-20] MEDS: IPRATROPIUM 0.2 MG/ML NEB INH SCH (08:04)
[2017-03-20] MEDS: LEVALBUTEROL 1.25 MG INH SCH (08:04)
[2017-03-20] MEDS: AZITHROMYCIN 250 MG TABLET PO SCH (08:25)
[2017-03-20] MEDS: FAMOTIDINE 20 MG TABLET PO SCH (08:25)
[2017-03-20] MEDS: CETIRIZINE 10 MG TABLET PO SCH (08:25)
[2017-03-20] MEDS: hydroCHLOROthiazide 12.5 MG CAPSULE PO SCH (08:25)
[2017-03-20] MEDS: diltiaZEM CD 120 MG CAPSULE PO SCH (08:26)
[2017-03-20] MEDS: LISINOPRIL 20 MG TABLET PO SCH (08:26)
[2017-03-20] MEDS: methylPREDNISolone SUCCINATE 40 MG/ML VIAL IVP SCH ×2 (08:26→20:44)
[2017-03-20] MEDS: POLYETHYLENE GLYCOL 3350 17 GM PACKET PO SCH (08:26)
[2017-03-20] MEDS: guaiFENesin 600 MG TABLET PO SCH ×2 (08:26→20:44)
[2017-03-20] MEDS: IPRATROPIUM/ALBUTEROL 3 ML NEB INH PRN ×3 (13:04→21:05)
--- NOTE | 2017-03-20 14:26 | CONSULTATION NOTE ---
DATE OF CONSULTATION: 03/19/2017 00:00:00 REQUESTING PHYSICIAN: Clarissa Bennett MD. INDICATION FOR CONSULTATION: Difficulty swallowing. HISTORY OF PRESENT ILLNESS: This is a 61-year-old female who was admitted through the emergency department on 03/17 for COPD exacerbation and new onset atrial fibrillation with rapid ventricular rate. She has been improving since her initial hospitalization; however, yesterday she was eating and had a choking episode. The patient stated that she was having difficulty swallowing and felt very anxious as a result of this. Once she laid flat, her symptoms resolved. Upon my evaluation of the patient, she states that approximately a year and a half. she had a laparotomy for ruptured appendicitis with a prolonged hospitalization at an outside institution. Since recovery from this, she has always had difficulty digesting her food. Her primary care physician is Dr. Gay and she states that [place] sort out the etiology of her complaints. She states that eventually the tool grinder operator surface told her that secondary to her scoliosis, she has a diminished angle between her esophagus and first part of her small intestine and she should lie flat after she eats in order to accommodate passage of food. If she does this, she does not have any problems. She states that the episode yesterday was very similar to episodes that she has had in the past. She also feels that she may have had an associated panic attack because she became very anxious during this episode. Since yesterday, she has felt fine and she was able to tolerate both dinner and breakfast without choking. She denies any odynophagia or dysphasia but states that it is difficult for her to digest food and feels very full after eating if she does not lie down immediately afterwards. Again, she states this has been going on for several years, and she has had extensive workup with her primary care physician and the referring tool grinder operator surface. PAST MEDICAL HISTORY: Significant for COPD and emphysema, Takotsubo cardiomyopathy, history of multiple respiratory tract infections. PAST SURGICAL HISTORY: As stated above. HOME MEDICATIONS 1. Lipitor. 2. Zestril. 3. Clonidine. 4. Norvasc. 5. Carvedilol. 6. DuoNeb. 7. Prilosec. ALLERGIES TO MEDICATIONS: NO KNOWN DRUG ALLERGIES. SOCIAL HISTORY: The patient smokes a pack per day. PHYSICAL EXAMINATION VITAL SIGNS: Temperature is 36.6, blood pressure 114/81, heart rate 81, respiratory rate 18. O2 saturations 94% on room air. GENERAL: She is awake, alert, oriented x3, in no acute distress. She is of average build. CARDIOVASCULAR: Irregular rate and rhythm. CHEST: Clear to auscultation bilaterally. ABDOMEN: Soft, nondistended, nontender to palpation without any masses present. EXTREMITIES: Nonedematous. LABORATORY VALUES: White blood cell count is 12.6, hemoglobin 11, hematocrit 34.1, platelets 514. Sodium 132, potassium 4.7, chloride 95, bicarbonate 28, BUN 21, creatinine 0.7, magnesium 1.5. ASSESSMENT: This is a 61-year-old female with an episode of choking while hospitalized for COPD exacerbation and new onset A.fib. As this is a chronic issue ongoing for the past year and a half, and the patient has had extensive workup by a tool grinder operator surface, I have recommended to the patient that upon discharge from the hospital she follow up with her primary care provider, and if a reconsultation to her tool grinder operator surface is warranted, this can be obtained. There is no acute indication for an further workup at this time. JOB #: [id number] EXT JOB #:[id number] ISRA
--- NOTE | 2017-03-20 15:43 | PROVIDER PROGRESS NOTE ---
Assessment/Plan - Problem List (1) COPD exacerbation Assessment/Plan: Patient is improving with duonebs, IV solumedrol and azithromycin Patient still requiring 3L of O2 and does not feel as though she is back to her baseline Will continue nebs and steroids Will wean down O2 Hopefully patient will be able to go home tomorrow (2) Atrial fibrillation Assessment/Plan: Presented with a fib with rvr which has resolved with diltiazem Patient now on PO dilt HR well controlled Patient was started on xarelto but developed vaginal bleeding with clots Patients xarelto held We will have patient follow up as outpatient and get workup for post menapausal vaginal bleeding and then restart xarelto at discretion of PCP [id number] score is 3 Continue diltiazem (3) Hypothyroidism Assessment/Plan: Patient has history of hypothyroidism TSH is normal Continue home dose of synthroid (4) Epigastric abdominal pain Assessment/Plan: Pt had sudden onset after eating and "needed to lie supine" which has been a problem for 1 year. EKG showed no new changes and sl NTG did relieve her sx. Surgical consulted for possible EGD but surgery recommended outpatient follow up with GI as she has already undergone workup for the above - Current Meds Current Meds: Current Medications Generic Name Dose Route Start Last Admin Trade Name Freq PRN Reason Stop Dose Admin Albuterol/Ipratropium 3 ml 03/20/17 10:52 03/20/17 13:04 Duoneb INH 3 ml Q4HR PRN Administration Wheezing Azithromycin 250 mg 03/18/17 09:00 03/20/17 08:25 Zithromax PO 250 mg DAILY MATTHEW Administration Cetirizine HCl 10 mg 03/18/17 21:00 03/20/17 08:25 Zyrtec PO 10 mg DAILY MATTHEW Administration Diltiazem HCl 120 mg 03/19/17 08:00 03/20/17 08:26 Cardizem Cd PO 120 mg DAILY MATTHEW Administration Famotidine 20 mg 03/17/17 11:00 03/20/17 08:25 Pepcid PO 20 mg DAILY MATTHEW Administration Guaifenesin 10 ml 03/17/17 14:59 03/20/17 10:52 Robitussin Dm PO 10 ml Q6HR PRN Administration Cough Guaifenesin 1,200 mg 03/17/17 15:00 03/20/17 08:26 Mucinex PO 1,200 mg BID MATTHEW Administration Hydrochlorothiazide 12.5 mg 03/19/17 18:00 03/20/17 08:25 Hydrodiuril PO 12.5 mg DAILY MATTHEW Administration Levalbuterol HCl 1.25 mg 03/17/17 17:13 03/20/17 04:49 Xopenex INH 1.25 mg Q4H PRN Administration Wheezing Lisinopril 20 mg 03/19/17 19:00 03/20/17 08:26 Zestril PO 20 mg DAILY MATTHEW Administration Lorazepam 0.5 mg 03/17/17 17:14 03/20/17 00:37 Ativan PO 0.5 mg Q6H PRN Administration Anxiety Methylprednisolone 40 mg 03/20/17 09:00 03/20/17 08:26 Solu-Medrol (40mg Vial) IVP 40 mg BID MATTHEW Administration Polyethylene Glycol 17 gm 03/18/17 09:00 03/20/17 08:26 Miralax PO Not Given DAILY MATTHEW Ranitidine HCl 150 mg 03/19/17 18:00 03/20/17 08:25 Zantac PO 150 mg DAILY MATTHEW Administration Sodium Chloride 10 ml 03/17/17 10:54 03/19/17 06:08 Normal Saline Flush 0.9% IVP 10 ml PRN PRN Administration NEEDED PER PROVIDER ORDERS Sodium Chloride 10 ml 03/17/17 14:00 03/20/17 13:44 Normal Saline Flush 0.9% IVP Not Given Q8HR MATTHEW Sodium Chloride 3 ml 03/17/17 17:13 03/20/17 04:48 Normal Saline INH 3 ml PRN PRN Administration Levalbuterol treatment Throat Lozenges 1 lozenge 03/18/17 03:12 03/19/17 01:41 Cepacol MM 1 lozenge Q2HR PRN Administration Throat pain - Lab Result Lab results reviewed: Yes Fish Bone Diagrams: 03/19/17 17:14 03/19/17 05:50 - EKG Results EKG Interpreted Independently: Yes - Diagnostic Imaging Results Diagnostic Imaging Results: Final report reviewed - Additional Planning Condition/Complexity: Guarded My Orders: My Active Orders 03/20/17 10:52 Ipratropium/Albuterol [Duoneb] 3 ml INH Q4HR PRN 03/21/17 05:00 CBC - COMP BLD CT W/AUTO DIFF [HEME] DAILYLAB CMP, RFLX TO IONIZED CA IF [CHEM] DAILYLAB 03/22/17 05:00 CBC - COMP BLD CT W/AUTO DIFF [HEME] DAILYLAB CMP, RFLX TO IONIZED CA IF [CHEM] DAILYLAB Consult/Specialty: Surgery Plan Discussed with:: Patient Time Spent: 31-60 minutes Subjective - Subjective Patient Reports: Shortness of Breath (She still feels short of breath and is not back to her baseline. She thinks that the treatment is helping but she is still) Nursing Reports: No Complaints Objective Vital Signs: Vital Signs - 24 hr 03/19/17 03/19/17 03/19/17 16:05 16:13 18:10 Temperature 36.5 C Heart Rate 100 85 Heart Rate [ 109 H Brachial] Respiratory 22 20 Rate Blood Pressure 151/112 H Blood Pressure 159/112 H [Right Brachial artery] O2 Saturation 4 L 03/19/17 03/19/17 03/19/17 20:29 23:42 23:50 Temperature 36.8 C 36.6 C Heart Rate 81 Heart Rate [ 85 95 Brachial] Respiratory 20 20 20 Rate Blood Pressure Blood Pressure 137/91 H 128/77 [Right Brachial artery] O2 Saturation 94 92 03/20/17 03/20/17 03/20/17 04:49 04:57 08:05 Temperature 36.4 C L 36.5 C Heart Rate 73 95 Heart Rate [ 76 75 Brachial] Respiratory 18 20 16 Rate Blood Pressure Blood Pressure 131/80 H 136/89 H [Right Brachial artery] O2 Saturation 92 95 03/20/17 03/20/17 13:04 13:15 Temperature 36.6 C Heart Rate 86 Heart Rate [ 81 Brachial] Respiratory 18 18 Rate Blood Pressure Blood Pressure 114/81 H [Right Brachial artery] O2 Saturation 94 Oxygen O2 Source Room air I&O (Last 24 Hrs): Intake and Output Totals x24h 03/18/17 03/19/17 03/20/17 23:59 23:59 23:59 Intake Total 1500 920 390 Output Total 150 Balance 1500 770 390 General: Alert, Oriented x3, Cooperative, No acute distress HEENT: Atraumatic, PERRLA, EOMI, Mucous membr. moist/pink Neck: Supple, No JVD, No thyromegaly, +2 carotid pulse wo bruit, No LAD Lymphatic: no adenopathy Neuro: Alert, Non Focal, CN 2-12 Grossly Intact, Oriented Times 3 Cardiovascular: No murmurs, Other (Irregular) Respiratory: Chest non-tender, Wheezes (bilateral), Other (Decreased air entry) Abdomen: Normal bowel sounds, Soft, No tenderness, No hepatospenomegaly Extremities: No clubbing, No cyanosis, No edema, Normal pulses Skin: No rashes, No breakdown, No significant lesion - Results Results: Laboratory Results WBC 12.6 x10^3/uL (4.8-10.8) H 03/19/17 17:14 RBC 3.81 10^6/uL (4.20-5.40) L 03/19/17 17:14 Hgb 11.0 g/dL (12.0-16.0) L 03/19/17 17:14 Hct 34.1 % (37.0-47.0) L 03/19/17 17:14 MCV 89.6 fL (81.0-99.0) 03/19/17 17:14 MCH 28.9 pg (27.0-31.0) 03/19/17 17:14 MCHC 32.2 g/dL (32.0-36.0) 03/19/17 17:14 RDW 18.3 % (12.0-15.0) H 03/19/17 17:14 Plt Count 514 10^3/uL (130-450) H 03/19/17 17:14 MPV 6.5 fL (7.9-10.8) L 03/19/17 17:14 Neut # 11.5 10^3/uL (1.5-6.6) H 03/19/17 17:14 Lymph # 0.8 10^3/uL (1.5-3.5) L 03/19/17 17:14 [place] # 0.3 10^3/uL (0.0-1.0) 03/19/17 17:14 Eos # 0.0 10^3/uL (0.0-0.7) 03/19/17 17:14 Baso # 0.0 10^3/uL (0.0-0.1) 03/19/17 17:14 Absolute Nucleated RBC 0.00 x10^3/uL 03/19/17 17:14 Nucleated RBC % 0.0 /100WBC 03/19/17 17:14 PT 12.3 secs (9.9-12.6) 03/17/17 08:35 INR 1.1 (0.8-1.2) 03/17/17 08:35 Sodium 132 mmol/L (135-145) L 03/19/17 05:50 Potassium 4.7 mmol/L (3.5-5.0) 03/19/17 05:50 Chloride 95 mmol/L (101-111) L 03/19/17 05:50 Carbon Dioxide 28 mmol/L (21-32) 03/19/17 05:50 Anion Gap 9.0 (6-13) 03/19/17 05:50 BUN 21 mg/dL (6-20) H 03/19/17 05:50 Creatinine 0.7 mg/dL (0.4-1.0) 03/19/17 05:50 Estimated GFR (MDRD) 85 (>89) L 03/19/17 05:50 Glucose 158 mg/dL (70-100) H 03/19/17 05:50 Lactic Acid 1.1 mmol/L (0.5-2.2) 03/17/17 09:53 Calcium 8.9 mg/dL (8.5-10.3) 03/19/17 05:50 Phosphorus 4.2 mg/dL (2.5-4.6) 03/17/17 08:35 Magnesium 1.5 mg/dL (1.7-2.8) L 03/19/17 05:50 Total Bilirubin 0.8 mg/dL (0.2-1.0) 03/17/17 08:35 AST 17 IU/L (10-42) 03/17/17 08:35 ALT 10 IU/L (10-60) 03/17/17 08:35 Alkaline Phosphatase 85 IU/L (42-121) 03/17/17 08:35 Troponin I 0.18 ng/mL (<0.49) 03/17/17 15:12 B-Natriuretic Peptide 283 pg/mL (5-100) H 03/17/17 08:35 Total Protein 7.4 g/dL (6.7-8.2) 03/17/17 08:35 Albumin 3.5 g/dL (3.2-5.5) 03/17/17 08:35 Globulin 3.9 g/dL (2.1-4.2) 03/17/17 08:35 Albumin/Globulin Ratio 0.9 (1.0-2.2) L 03/17/17 08:35 Lipase 18 U/L (22-51) L 03/17/17 08:35 Free T4 1.03 ng/dL (0.58-1.64) 03/18/17 06:09 - Procedures Procedures: Procedures ASSIST W CARDIAC OUTPUT W PULS COMPRESSION, CONTINUOUS (07/13/15) ASSISTANCE WITH RESPIRATORY VENTILATION, 24-96 HRS, CPAP (07/13/15) DRAINAGE OF R PLEURAL CAV WITH DRAIN DEV, PERC APPROACH (07/13/15) INSERTION OF ENDOTRACHEAL AIRWAY INTO TRACHEA, VIA OPENING (07/13/15) INSERTION OF INFUSION DEV INTO SUP VENA CAVA, PERC APPROACH (07/13/15) INTRODUCTION OF NUTRITIONAL INTO CENTRAL VEIN, PERC APPROACH (07/13/15) MONITORING OF VENOUS PRESSURE, CENTRAL, PERC APPROACH (07/13/15) RESECTION OF APPENDIX, OPEN APPROACH (07/13/15) RESPIRATORY VENTILATION, 24-96 CONSECUTIVE HOURS (07/13/15)
[2017-03-21] MEDS: IPRATROPIUM/ALBUTEROL 3 ML NEB INH PRN ×4 (01:17→15:00)
[2017-03-21] MEDS: HYDROcod/ACETAM 5/325 MG TABLET PO PRN ×3 (01:22→12:38)
[2017-03-21] MEDS: guaiFENesin/DEXTROMETHORPHAN 10 ML UDC PO PRN (01:22)
[2017-03-21] MEDS: LORazepam 0.5 MG TABLET PO PRN ×3 (04:53→22:45)
[2017-03-21] MEDS: SODIUM CHLORIDE FLUSH 0.9% 10 ML SYRINGE IVP SCH ×3 (04:54→22:25)
[2017-03-21 05:14] LABS: BASOPHILS % (AUTO) 0.1 %; EOSINOPHILS % (AUTO) 0.1 %; HCT - HEMATOCRIT 33.6 % (37.0-47.0); HGB - HEMOGLOBIN 11.2 g/dL (12.0-16.0); LYMPHOCYTES # (AUTO) 0.7 10^3/uL (1.5-3.5); LYMPHOCYTES % (AUTO) 8.2 %; MEAN CORPUSCULAR HEMOGLOBIN 29.5 pg (27.0-31.0); MEAN CORPUSCULAR HGB CONC 33.2 g/dL (32.0-36.0); MEAN PLATELET VOLUME 6.9 fL (7.9-10.8); MONOCYTES # (AUTO) 0.3 10^3/uL (0.0-1.0); MONOCYTES % (AUTO) 3.5 %; NEUTROPHILS # (AUTO) 7.8 10^3/uL (1.5-6.6); NEUTROPHILS % (AUTO) 88.1 %; RED BLOOD COUNT 3.78 10^6/uL (4.20-5.40); RED CELL DISTRIBUTION WIDTH 17.9 % (12.0-15.0); UNCORRECTED WHITE BLOOD COUNT 8.9 x10^3/uL; WHITE BLOOD COUNT 8.9 x10^3/uL (4.8-10.8)
[2017-03-21 05:22] LABS: BILIRUBIN,TOTAL 0.5 mg/dL (0.2-1.0); BUN - BLOOD UREA NITROGEN 24 mg/dL (6-20); CALCIUM 8.8 mg/dL (8.5-10.3); CARBON DIOXIDE - CO2 30 mmol/L (21-32); CHLORIDE 86 mmol/L (101-111); CREATININE 0.8 mg/dL (0.4-1.0); GFR - MDRD 72 (>89); GLUCOSE 144 mg/dL (70-100); SODIUM 129 mmol/L (135-145); TOTAL PROTEIN 6.1 g/dL (6.7-8.2)
[2017-03-21] MEDS: AZITHROMYCIN 250 MG TABLET PO SCH (08:19)
[2017-03-21] MEDS: guaiFENesin 600 MG TABLET PO SCH ×2 (08:19→22:25)
[2017-03-21] MEDS: FAMOTIDINE 20 MG TABLET PO SCH (08:19)
[2017-03-21] MEDS: hydroCHLOROthiazide 12.5 MG CAPSULE PO SCH (08:19)
[2017-03-21] MEDS: LISINOPRIL 20 MG TABLET PO SCH (08:19)
[2017-03-21] MEDS: CETIRIZINE 10 MG TABLET PO SCH (08:19)
[2017-03-21] MEDS: diltiaZEM CD 120 MG CAPSULE PO SCH (08:19)
[2017-03-21] MEDS: SODIUM CHLORIDE FLUSH 0.9% 10 ML SYRINGE IVP PRN ×3 (08:20→22:37)
[2017-03-21] MEDS: POLYETHYLENE GLYCOL 3350 17 GM PACKET PO SCH ×2 (08:20→08:30)
[2017-03-21] MEDS: methylPREDNISolone SUCCINATE 40 MG/ML VIAL IVP SCH ×2 (08:20→22:25)
[2017-03-21] MEDS ORDERED: DOCUSATE SODIUM 250 MG CAPSULE PO SCH (09:00)
[2017-03-21] MEDS ORDERED: BENZOCAINE/MENTHOL LOZENGE MM PRN (12:33)
[2017-03-21] MEDS: BENZOCAINE/MENTHOL LOZENGE MM PRN ×2 (12:44→16:19)
--- NOTE | 2017-03-21 15:43 | PROVIDER PROGRESS NOTE ---
Assessment/Plan - Problem List (1) COPD exacerbation Assessment/Plan: Patient is improving with duonebs, IV solumedrol and azithromycin Patient still requiring 1-2L of O2 at rest and drops to 81% with walking just 10 feet without O2 Patient needs O2 at home it appears but patient does not want home O2 therefore we will try to treat for 1 more day to see if patients O2 requirement will improve Will continue nebs, steroids and abx Will continue to wean down O2 Hopefully patient will be able to go home tomorrow either on O2 or off O2 depending on how she does with walk test (2) Atrial fibrillation Assessment/Plan: Presented with a fib with rvr which has resolved with diltiazem Patient now on PO dilt HR well controlled Patient was started on xarelto but developed vaginal bleeding with clots Patients xarelto held We will have patient follow up as outpatient and get workup for post menapausal vaginal bleeding and then restart xarelto at discretion of PCP [id number] score is 3 Continue diltiazem (3) Hypothyroidism Assessment/Plan: Patient has history of hypothyroidism TSH is normal Continue home dose of synthroid (4) Epigastric abdominal pain Assessment/Plan: Pt had sudden onset after eating and "needed to lie supine" which has been a problem for 1 year. EKG showed no new changes and sl NTG did relieve her sx. Surgical consulted for possible EGD but surgery recommended outpatient follow up with GI as she has already undergone workup for the above - Current Meds Current Meds: Current Medications Generic Name Dose Route Start Last Admin Trade Name Freq PRN Reason Stop Dose Admin Acetaminophen 650 mg 03/17/17 10:54 03/21/17 04:53 Tylenol PO 650 mg Q4HR PRN Administration Pain 1 to 4 Acetaminophen/Hydrocodone Bitart 1 tab 03/17/17 10:54 03/21/17 12:38 Recluse 5/325 PO 1 tab Q4HR PRN Administration Pain 5 to 7 Albuterol/Ipratropium 3 ml 03/20/17 10:52 03/21/17 15:00 Duoneb INH 3 ml Q4HR PRN Administration Wheezing Azithromycin 250 mg 03/18/17 09:00 03/21/17 08:19 Zithromax PO 250 mg DAILY MATTHEW Administration Cetirizine HCl 10 mg 03/18/17 21:00 03/21/17 08:19 Zyrtec PO 10 mg DAILY MATTHEW Administration Diltiazem HCl 120 mg 03/19/17 08:00 03/21/17 08:19 Cardizem Cd PO 120 mg DAILY MATTHEW Administration Famotidine 20 mg 03/17/17 11:00 03/21/17 08:19 Pepcid PO 20 mg DAILY MATTHEW Administration Guaifenesin 10 ml 03/17/17 14:59 03/21/17 01:22 Robitussin Dm PO 10 ml Q6HR PRN Administration Cough Guaifenesin 1,200 mg 03/17/17 15:00 03/21/17 08:19 Mucinex PO 1,200 mg BID MATTHEW Administration Hydrochlorothiazide 12.5 mg 03/19/17 18:00 03/21/17 08:19 Hydrodiuril PO 12.5 mg DAILY MATTHEW Administration Levalbuterol HCl 1.25 mg 03/17/17 17:13 03/20/17 04:49 Xopenex INH 1.25 mg Q4H PRN Administration Wheezing Lisinopril 20 mg 03/19/17 19:00 03/21/17 08:19 Zestril PO 20 mg DAILY MATTHEW Administration Lorazepam 0.5 mg 03/17/17 17:14 03/21/17 12:38 Ativan PO 0.5 mg Q6H PRN Administration Anxiety Methylprednisolone 40 mg 03/20/17 09:00 03/21/17 08:20 Solu-Medrol (40mg Vial) IVP 40 mg BID MATTHEW Administration Polyethylene Glycol 17 gm 03/18/17 09:00 03/21/17 08:30 Miralax PO Not Given DAILY MATTHEW Ranitidine HCl 150 mg 03/19/17 18:00 03/21/17 08:19 Zantac PO 150 mg DAILY MATTHEW Administration Sodium Chloride 10 ml 03/17/17 10:54 03/21/17 08:20 Normal Saline Flush 0.9% IVP 10 ml PRN PRN Administration NEEDED PER PROVIDER ORDERS Sodium Chloride 10 ml 03/17/17 14:00 03/21/17 04:54 Normal Saline Flush 0.9% IVP 10 ml Q8HR MATTHEW Administration Sodium Chloride 3 ml 03/17/17 17:13 03/20/17 04:48 Normal Saline INH 3 ml PRN PRN Administration Levalbuterol treatment Throat Lozenges 1 lozenge 03/18/17 03:12 03/21/17 12:44 Cepacol MM 1 lozenge Q2HR PRN Administration Throat pain - Lab Result Lab results reviewed: Yes Fish Bone Diagrams: 03/21/17 04:43 03/21/17 04:43 - Diagnostic Imaging Results Diagnostic Imaging Results: Final report reviewed - Additional Planning Condition/Complexity: Improved My Orders: My Active Orders 03/21/17 10:58 O2 [Oxygen Desat. Study w/Exercise] [RC] .ONCE 03/21/17 12:33 Benzocaine/Menthol [Cepacol] 1 lozenge MM Q2HR PRN 03/22/17 05:00 CBC - COMP BLD CT W/AUTO DIFF [HEME] DAILYLAB CMP, RFLX TO IONIZED CA IF [CHEM] DAILYLAB Plan Discussed with:: Patient Time Spent: 31-60 minutes Subjective - Subjective Patient Reports: Shortness of Breath (Patient states she had a bad day yesterday and feels very congested and short of breath with exertion. She is requiring less O2 at rest but still desats without O2. She denies any fevers or chills.) Nursing Reports: No Complaints Objective Vital Signs: Vital Signs - 24 hr 03/20/17 03/20/17 03/20/17 15:42 15:55 18:00 Temperature 36.2 C L Heart Rate 106 H Heart Rate [ 86 Brachial] Respiratory 20 12 Rate Blood Pressure [Left Brachial artery] Blood Pressure 129/87 H [Right Brachial artery] O2 Saturation 95 96 03/20/17 03/20/17 03/21/17 21:06 21:49 01:17 Temperature 36.3 C L 36.2 C L Heart Rate 88 78 Heart Rate [ 76 86 Brachial] Respiratory 16 20 20 Rate Blood Pressure 158/76 H [Left Brachial artery] Blood Pressure 143/78 H [Right Brachial artery] O2 Saturation 97 100 03/21/17 03/21/17 03/21/17 05:05 07:40 08:09 Temperature 36.4 C L 36.5 C Heart Rate 70 Heart Rate [ 74 59 L Brachial] Respiratory 18 14 18 Rate Blood Pressure [Left Brachial artery] Blood Pressure 147/97 H 167/92 H [Right Brachial artery] O2 Saturation 95 97 03/21/17 03/21/17 03/21/17 08:22 08:24 11:05 Temperature Heart Rate 84 Heart Rate [ 61 79 Brachial] Respiratory 12 Rate Blood Pressure [Left Brachial artery] Blood Pressure [Right Brachial artery] O2 Saturation 90 L 94 03/21/17 03/21/17 11:30 15:00 Temperature Heart Rate 95 87 Heart Rate [ Brachial] Respiratory 14 Rate Blood Pressure [Left Brachial artery] Blood Pressure [Right Brachial artery] O2 Saturation Oxygen O2 Source Room air I&O (Last 24 Hrs): Intake and Output Totals x24h 03/19/17 03/20/17 03/21/17 23:59 23:59 23:59 Intake Total 790 201 0424 Output Total 150 Balance 174 272 8044 General: Alert, Oriented x3, Cooperative, No acute distress HEENT: Atraumatic, PERRLA, EOMI, Mucous membr. moist/pink Neck: Supple, No JVD, No thyromegaly, +2 carotid pulse wo bruit, No LAD Lymphatic: no adenopathy Neuro: Alert, Non Focal, CN 2-12 Grossly Intact, Oriented Times 3 Cardiovascular: No murmurs, Other (irregularly irregular) Respiratory: Chest non-tender, Wheezes (scattered, expiratory), Other ( Decreased air movement) Abdomen: Normal bowel sounds, Soft, No tenderness, No hepatospenomegaly Extremities: No clubbing, No cyanosis, No edema, Normal pulses Skin: No rashes, No breakdown - Results Results: Laboratory Results WBC 8.9 x10^3/uL (4.8-10.8) 03/21/17 04:43 RBC 3.78 10^6/uL (4.20-5.40) L 03/21/17 04:43 Hgb 11.2 g/dL (12.0-16.0) L 03/21/17 04:43 Hct 33.6 % (37.0-47.0) L 03/21/17 04:43 MCV 89.0 fL (81.0-99.0) 03/21/17 04:43 MCH 29.5 pg (27.0-31.0) 03/21/17 04:43 MCHC 33.2 g/dL (32.0-36.0) 03/21/17 04:43 RDW 17.9 % (12.0-15.0) H 03/21/17 04:43 Plt Count 518 10^3/uL (130-450) H 03/21/17 04:43 MPV 6.9 fL (7.9-10.8) L 03/21/17 04:43 Neut # 7.8 10^3/uL (1.5-6.6) H 03/21/17 04:43 Lymph # 0.7 10^3/uL (1.5-3.5) L 03/21/17 04:43 Teller # 0.3 10^3/uL (0.0-1.0) 03/21/17 04:43 Eos # 0.0 10^3/uL (0.0-0.7) 03/21/17 04:43 Baso # 0.0 10^3/uL (0.0-0.1) 03/21/17 04:43 Absolute Nucleated RBC 0.00 x10^3/uL 03/21/17 04:43 Nucleated RBC % 0.0 /100WBC 03/21/17 04:43 PT 12.3 secs (9.9-12.6) 03/17/17 08:35 INR 1.1 (0.8-1.2) 03/17/17 08:35 Sodium 129 mmol/L (135-145) L 03/21/17 04:43 Potassium 4.0 mmol/L (3.5-5.0) 03/21/17 04:43 Chloride 86 mmol/L (101-111) L 03/21/17 04:43 Carbon Dioxide 30 mmol/L (21-32) 03/21/17 04:43 Anion Gap 13.0 (6-13) 03/21/17 04:43 BUN 24 mg/dL (6-20) H 03/21/17 04:43 Creatinine 0.8 mg/dL (0.4-1.0) 03/21/17 04:43 Estimated GFR (MDRD) 72 (>89) L 03/21/17 04:43 Glucose 144 mg/dL (70-100) H 03/21/17 04:43 Lactic Acid 1.1 mmol/L (0.5-2.2) 03/17/17 09:53 Calcium 8.8 mg/dL (8.5-10.3) 03/21/17 04:43 Ionized Calcium NO 03/21/17 04:43 Phosphorus 4.2 mg/dL (2.5-4.6) 03/17/17 08:35 Magnesium 1.5 mg/dL (1.7-2.8) L 03/19/17 05:50 Total Bilirubin 0.5 mg/dL (0.2-1.0) 03/21/17 04:43 AST 24 IU/L (10-42) 03/21/17 04:43 ALT 22 IU/L (10-60) 03/21/17 04:43 Alkaline Phosphatase 58 IU/L (42-121) 03/21/17 04:43 Troponin I 0.18 ng/mL (<0.49) 03/17/17 15:12 B-Natriuretic Peptide 283 pg/mL (5-100) H 03/17/17 08:35 Total Protein 6.1 g/dL (6.7-8.2) L 03/21/17 04:43 Albumin 3.1 g/dL (3.2-5.5) L 03/21/17 04:43 Globulin 3.0 g/dL (2.1-4.2) 03/21/17 04:43 Albumin/Globulin Ratio 1.0 (1.0-2.2) 03/21/17 04:43 Lipase 18 U/L (22-51) L 03/17/17 08:35 Free T4 1.03 ng/dL (0.58-1.64) 03/18/17 06:09 - Procedures Procedures: Procedures ASSIST W CARDIAC OUTPUT W PULS COMPRESSION, CONTINUOUS (07/13/15) ASSISTANCE WITH RESPIRATORY VENTILATION, 24-96 HRS, CPAP (07/13/15) DRAINAGE OF R PLEURAL CAV WITH DRAIN DEV, PERC APPROACH (07/13/15) INSERTION OF ENDOTRACHEAL AIRWAY INTO TRACHEA, VIA OPENING (07/13/15) INSERTION OF INFUSION DEV INTO SUP VENA CAVA, PERC APPROACH (07/13/15) INTRODUCTION OF NUTRITIONAL INTO CENTRAL VEIN, PERC APPROACH (07/13/15) MONITORING OF VENOUS PRESSURE, CENTRAL, PERC APPROACH (07/13/15) RESECTION OF APPENDIX, OPEN APPROACH (07/13/15) RESPIRATORY VENTILATION, 24-96 CONSECUTIVE HOURS (07/13/15)
[2017-03-21] MEDS ORDERED: PHENOL THROAT SPRAY 177 ML MM PRN (22:24)
[2017-03-21] MEDS ORDERED: PHENOL THROAT SPRAY 177 ML MM ONE (22:26)
[2017-03-22] MEDS: LORazepam 0.5 MG TABLET PO PRN ×2 (04:56→10:21)
[2017-03-22] MEDS: SODIUM CHLORIDE FLUSH 0.9% 10 ML SYRINGE IVP SCH ×2 (04:57→15:49)
[2017-03-22] MEDS: BENZOCAINE/MENTHOL LOZENGE MM PRN ×2 (05:10→10:31)
[2017-03-22 06:01] LABS: BASOPHILS % (AUTO) 0.1 %; HCT - HEMATOCRIT 36.5 % (37.0-47.0); HGB - HEMOGLOBIN 11.8 g/dL (12.0-16.0); LYMPHOCYTES # (AUTO) 0.7 10^3/uL (1.5-3.5); MEAN CORPUSCULAR HEMOGLOBIN 28.9 pg (27.0-31.0); MEAN CORPUSCULAR HGB CONC 32.2 g/dL (32.0-36.0); MEAN CORPUSCULAR VOLUME 89.7 fL (81.0-99.0); MEAN PLATELET VOLUME 6.7 fL (7.9-10.8); MONOCYTES # (AUTO) 0.3 10^3/uL (0.0-1.0); MONOCYTES % (AUTO) 4.1 %; NEUTROPHILS # (AUTO) 5.7 10^3/uL (1.5-6.6); NEUTROPHILS % (AUTO) 85.8 %; RED BLOOD COUNT 4.07 10^6/uL (4.20-5.40); RED CELL DISTRIBUTION WIDTH 17.5 % (12.0-15.0); UNCORRECTED WHITE BLOOD COUNT 6.7 x10^3/uL; WHITE BLOOD COUNT 6.7 x10^3/uL (4.8-10.8)
[2017-03-22 06:15] LABS: ALBUMIN/GLOBULIN RATIO 0.9 (1.0-2.2); BILIRUBIN,TOTAL 0.4 mg/dL (0.2-1.0); BUN - BLOOD UREA NITROGEN 20 mg/dL (6-20); CALCIUM 8.8 mg/dL (8.5-10.3); CARBON DIOXIDE - CO2 34 mmol/L (21-32); CHLORIDE 88 mmol/L (101-111); CREATININE 0.7 mg/dL (0.4-1.0); GFR - MDRD 85 (>89); GLUCOSE 132 mg/dL (70-100); POTASSIUM 4.4 mmol/L (3.5-5.0); SODIUM 131 mmol/L (135-145)
[2017-03-22] MEDS: IPRATROPIUM/ALBUTEROL 3 ML NEB INH PRN ×2 (09:45→13:00)
[2017-03-22] MEDS: guaiFENesin 600 MG TABLET PO SCH (10:20)
[2017-03-22] MEDS: methylPREDNISolone SUCCINATE 40 MG/ML VIAL IVP SCH (10:20)
[2017-03-22] MEDS: CETIRIZINE 10 MG TABLET PO SCH (10:21)
[2017-03-22] MEDS: hydroCHLOROthiazide 12.5 MG CAPSULE PO SCH (10:21)
[2017-03-22] MEDS: LISINOPRIL 20 MG TABLET PO SCH (10:21)
[2017-03-22] MEDS: AZITHROMYCIN 250 MG TABLET PO SCH (10:21)
[2017-03-22] MEDS: SODIUM CHLORIDE FLUSH 0.9% 10 ML SYRINGE IVP PRN (10:21)
[2017-03-22] MEDS: FAMOTIDINE 20 MG TABLET PO SCH (10:21)
[2017-03-22] MEDS: diltiaZEM CD 120 MG CAPSULE PO SCH (10:21)
[2017-03-22] MEDS: POLYETHYLENE GLYCOL 3350 17 GM PACKET PO SCH (10:22)
[2017-03-22] MEDS ORDERED: SENNA 8.6 MG TABLET PO SCH (10:32)
[2017-03-22] MEDS ORDERED: DOCUSATE SODIUM 250 MG CAPSULE PO SCH (10:32)
[2017-03-22] MEDS ORDERED: OXYMETAZOLINE NASAL SPRAY NAS PRN (10:49)
[2017-03-22 13:56] VITALS: BP 107/71
--- NOTE | 2017-03-22 15:58 | Discharge Plan ---
Discharge Plan Disposition: Home, Self Care Condition: Fair Prescriptions: Azithromycin [Zithromax] 250 mg PO DAILY #5 tablet Fluticasone/Salmeterol [Advair 250-50 Diskus] 1 each IH BID #1 blst.w.dev guaiFENesin [Mucinex] 1,200 mg PO BID PRN #20 tablet PRN Reason: Cough LORazepam [Ativan] 0.5 mg PO Q6H PRN #30 tablet PRN Reason: Anxiety Oxymetazoline HCl [Afrin] 50 sprays NS Q12H PRN #1 spray PRN Reason: Nasal Congestion Prednisone 20 mg PO DAILY #14 tablet Diet: Low Sodium Activity Restrictions: Activity as Tolerated Weight Bearing: Full Weight Additional Instructions or Follow Up instructions: You presented with a COPD exacerbation but were also found to be in a fib with rvr. Your heart rate was controlled and you were started on a blood thinner but you started to have bleeding from your vaginal area and we had to stop it. You will need to follow up with your PCP to discuss whether to restart it. For your COPD you will be going home with a prescription for a nasal decongestant called Afrin which you should not take for more than 5 days. You will be using prednisone for 7 more days and you will be getting an antibiotic for 5 days. You should also use oxygen at home 2L continuous until you see your PCP and get retested in one week. You are also getting a prescription for an inhaler called Advair that you need to take 2 times a day. No Smoking: If you smoke, Please STOP! Call for help. Follow-up with: Yung Gay MD [Primary Care Provider] -
--- NOTE | 2017-03-22 16:34 | DISCHARGE SUMMARY ---
Discharge Summary Admit Date: 03/17/17 Discharge Date: 03/22/17 Discharging Provider: Shalom Holland MD Primary Care Provider: Yung Gay MD Code Status: Attempt Resuscitation Condition at Discharge: Fair Discharge Disposition: 01 Home, Self Care - DIAGNOSES Admission Diagnoses: 1. New onset atrial fibrillation with rapid ventricular rate 2. Hypotension 3. COPD with acute exacerbation 5. Bronchitis 6. Congestive heart failure 7. History of [place] cardiomyopathy 8. Tobacco abuse 9. Mild renal insufficiency Discharge Diagnoses with Status of Each Condition: 1. COPD exacerbation: Improving 2. Atrial fibrillation: Stable 3. Hypothyroidism: Stable 4. Epigastric abdominal pain: Improved 5. Tobacco abuse: Improved 6. Renal insufficiency: Resolved - HPI History of Present Illness: Patient is a 61-year-old female with a past medical history of heavy tobacco abuse, COPD, history of toxic cell boost cardiomyopathy and history of appendix rupture 1-1/2 years ago for which patient had a prolonged hospitalization who presented to the emergency department with a chief complaint of shortness of breath with wheezing. The patient was found to have wheezing in the emergency department and also found to have a new onset atrial fibrillation with heart rate in the 180s. Patient received IV dose of Cardizem and a 20 mg bolus with which the patient's heart rate came down into the 110 range. The patient however remained in atrial fibrillation. The patient's chest x-ray showed that she did have some pulmonary congestion she was admitted for atrial fibrillation with RVR and found to have a COPD exacerbation. - HOSPITAL COURSE Hospital Course: During the hospitalization the patient was treated for atrial fibrillation with rapid ventricular rate eventually the patient's rate was controlled with diltiazem. The patient was initially started on Xarelto as her chads 2 score was 2. The patient however had vaginal bleeding when she started Xarelto therefore the Xarelto was stopped with which the vaginal bleeding also stopped. The patient will need to follow-up with her primary care physician in order to decide whether to restart the Xarelto. The patient was discharged home on her home dose of Coreg for control of the atrial fibrillation. The patient was also found to have a COPD exacerbation and required oxygen throughout the hospitalization. The patient was treated with steroids, duo nebs, azithromycin and had marked improvement through the hospitalization. The patient did have an O2 walk test with which she required 2 L of oxygen as her oxygen saturation dropped below 88% on room air with exertion. The patient's oxygen saturation also dropped to 87% at rest therefore she needs continuous oxygen 2 L at home. Patient was discharged home with p.o. prednisone which she will take for 7 days. The patient will also get 5 days additional of azithromycin as well as a Advair inhaler which she was instructed to take twice a day. The patient had significant anxiety through the hospitalization and was discharged home on Ativan. The patient also had significant nasal congestion which improved with the use of Afrin she was given a prescription of Afrin at discharge. The patient will follow up with her primary care physician in 7 days to reassess her oxygen requirements if she is able to come off the oxygen then she will no longer need home oxygen but at this point it appears she does. Patient was counseled about tobacco abuse and she is ready to quit using tobacco she did have nicotine patches at home therefore she did not requires prescription for nicotine. - ALLERGIES Allergies/Adverse Reactions: Allergies Allergy/AdvReac Type Severity Reaction Status Date / Time No Known Drug Allergies Allergy Verified 10/27/12 09:04 - MEDICATIONS Home Medications: Ambulatory Orders Medication Instructions Recorded Confirmed Lisinopril [Zestril] 40 mg PO DAILY 10/27/12 03/18/17 Ipratropium/Albuterol [Duoneb] 0.5 - 3 mg INH BID PRN 07/14/15 03/18/17 Carvedilol 12.5 mg PO BID 03/18/17 03/18/17 Ipratropium/Albuterol [Combivent 1 puffs INH QID 03/18/17 03/18/17 Respimat] hydroCHLOROthiazide [Hydrodiuril] 12.5 mg PO DAILY 03/18/17 03/18/17 Pantoprazole Sodium [Protonix] 40 mg PO QDAC 03/19/17 03/19/17 raNITIdine [Zantac] 150 mg PO QPM 03/19/17 03/19/17 Azithromycin [Zithromax] 250 mg PO DAILY #5 tablet 03/22/17 Fluticasone/Salmeterol [Advair 1 each IH BID #1 blst.w.dev 03/22/17 250-50 Diskus] Ipratropium/Albuterol [Duoneb] 3 ml INH Q4HR PRN neb 03/22/17 LORazepam [Ativan] 0.5 mg PO Q6H PRN #30 tablet 03/22/17 Oxymetazoline HCl [Afrin] 50 sprays NS Q12H PRN #1 spray 03/22/17 Prednisone 20 mg PO DAILY #14 tablet 03/22/17 guaiFENesin [Mucinex] 1,200 mg PO BID PRN #20 tablet 03/22/17 - PHYSICAL EXAM AT DISCHARGE General Appearance: positive: No acute distress, Alert, Other (Thin, frail) Eyes Bilateral: positive: Normal inspection, PERRL, EOMI, No lid inflammation, Conjunctivae nml, No scleral icterus ENT: positive: ENT inspection nml, Pharynx nml, No signs of dehydration. negative: Purulent nasal drainage, Pharyngeal erythema, Oral lesions Neck: positive: Nml inspection, Thyroid nml, No JVD, Trachea midline. negative : Thyromegaly, Lymphadenopathy (R), Lymphadenopathy (L), Carotid bruit, Tracheal deviation Respiratory: positive: Chest non-tender, No respiratory distress, Breath sounds nml, Wheezes (scattered), Other (decreased breath sounds) Cardiovascular: positive: No murmur, No gallop, Irregularly irregular Peripheral Pulses: positive: 2+ Abdomen: positive: Non-tender, No organomegaly, Nml bowel sounds, No distention. negative: Guarding, Rebound, Hepatomegaly Back: positive: Nml inspection. negative: CVA tenderness (R), CVA tenderness (L ) Skin: positive: Color nml, No rash, Warm. negative: Cyanosis, Pallor Extremities: positive: Non-tender, Full ROM, Nml appearance, No pedal edema Neurologic/Psychiatric: positive: Oriented x3, CN's nml (2-12), Motor nml, Sensation nml, Mood/affect nml - LABS Result Diagrams: 03/22/17 05:33 03/22/17 05:33 Other Lab Results: Laboratory Results WBC 6.7 x10^3/uL (4.8-10.8) 03/22/17 05:33 RBC 4.07 10^6/uL (4.20-5.40) L 03/22/17 05:33 Hgb 11.8 g/dL (12.0-16.0) L 03/22/17 05:33 Hct 36.5 % (37.0-47.0) L 03/22/17 05:33 MCV 89.7 fL (81.0-99.0) 03/22/17 05:33 MCH 28.9 pg (27.0-31.0) 03/22/17 05:33 MCHC 32.2 g/dL (32.0-36.0) 03/22/17 05:33 RDW 17.5 % (12.0-15.0) H 03/22/17 05:33 Plt Count 598 10^3/uL (130-450) H 03/22/17 05:33 MPV 6.7 fL (7.9-10.8) L 03/22/17 05:33 Neut # 5.7 10^3/uL (1.5-6.6) 03/22/17 05:33 Lymph # 0.7 10^3/uL (1.5-3.5) L 03/22/17 05:33 Emery # 0.3 10^3/uL (0.0-1.0) 03/22/17 05:33 Eos # 0.0 10^3/uL (0.0-0.7) 03/22/17 05:33 Baso # 0.0 10^3/uL (0.0-0.1) 03/22/17 05:33 Absolute Nucleated RBC 0.00 x10^3/uL 03/22/17 05:33 Nucleated RBC % 0.0 /100WBC 03/22/17 05:33 PT 12.3 secs (9.9-12.6) 03/17/17 08:35 INR 1.1 (0.8-1.2) 03/17/17 08:35 Sodium 131 mmol/L (135-145) L 03/22/17 05:33 Potassium 4.4 mmol/L (3.5-5.0) 03/22/17 05:33 Chloride 88 mmol/L (101-111) L 03/22/17 05:33 Carbon Dioxide 34 mmol/L (21-32) H 03/22/17 05:33 Anion Gap 9.0 (6-13) 03/22/17 05:33 BUN 20 mg/dL (6-20) 03/22/17 05:33 Creatinine 0.7 mg/dL (0.4-1.0) 03/22/17 05:33 Estimated GFR (MDRD) 85 (>89) L 03/22/17 05:33 Glucose 132 mg/dL (70-100) H 03/22/17 05:33 Lactic Acid 1.1 mmol/L (0.5-2.2) 03/17/17 09:53 Calcium 8.8 mg/dL (8.5-10.3) 03/22/17 05:33 Ionized Calcium NO 03/22/17 05:33 Phosphorus 4.2 mg/dL (2.5-4.6) 03/17/17 08:35 Magnesium 1.5 mg/dL (1.7-2.8) L 03/19/17 05:50 Total Bilirubin 0.4 mg/dL (0.2-1.0) 03/22/17 05:33 AST 17 IU/L (10-42) 03/22/17 05:33 ALT 20 IU/L (10-60) 03/22/17 05:33 Alkaline Phosphatase 54 IU/L (42-121) 03/22/17 05:33 Troponin I 0.18 ng/mL (<0.49) 03/17/17 15:12 B-Natriuretic Peptide 283 pg/mL (5-100) H 03/17/17 08:35 Total Protein 6.0 g/dL (6.7-8.2) L 03/22/17 05:33 Albumin 2.9 g/dL (3.2-5.5) L 03/22/17 05:33 Globulin 3.1 g/dL (2.1-4.2) 03/22/17 05:33 Albumin/Globulin Ratio 0.9 (1.0-2.2) L 03/22/17 05:33 Lipase 18 U/L (22-51) L 03/17/17 08:35 Free T4 1.03 ng/dL (0.58-1.64) 03/18/17 06:09 - DIAGNOSTIC IMAGING Diagnostic Imaging Results: Final report reviewed Diagnostic Imaging Results Comments: Chest x-ray Impression: Suspect mild interstitial edema or pneumonitis superimposed on emphysema Chest x-ray impression: 1. Cardiomegaly with mild increased pulmonary opacities Echocardiogram Conclusions: 1. Underlying rhythm is atrial fibrillation with rapid ventricular rate 2. The left ventricular size is normal. Left ventricular wall thickness is normal. Overall left ventricular systolic function is normal with an ejection fraction of 65-70% 3. The right ventricular is normal in size and function 4. No significant valvular abnormality. - FOLLOW UP Follow Up: Patient will follow up with her primary care physician in 7 days to have her oxygen requirement reassessed. During that time she will be treated with steroids antibiotics and oxygen at home. The patient will also need to be reevaluated for the need for anticoagulation as she does have new onset atrial fibrillation. She may also need to be referred to cardiology. The patient's echocardiogram did not show a decreased ejection fraction. - TIME SPENT Time Spent in Discharge (Minutes): 55 (Fax to PCP)
[2017-03-23] MEDS ORDERED: DOCUSATE SODIUM 250 MG CAPSULE PO SCH (09:00)
[2017-03-23] MEDS ORDERED: SENNA 8.6 MG TABLET PO SCH (09:00)
== END 2017-03-22 17:45 | disposition home or self-care (01) | DRG 191 ==
LOC: ED 08:21 → MS2 10:55
PROVIDERS: ADMIT Internal Medicine; ATTEND Internal Medicine
DX: J44.0 Chronic obstructive pulmonary disease with (acute) lower respiratory infection (principal); I51.81 Takotsubo syndrome; J20.9 Acute bronchitis, unspecified; J44.1 Chronic obstructive pulmonary disease with (acute) exacerbation; I48.91 Unspecified atrial fibrillation; E03.9 Hypothyroidism, unspecified; R10.13 Epigastric pain; F17.210 Nicotine dependence, cigarettes, uncomplicated; F41.9 Anxiety disorder, unspecified; R09.81 Nasal congestion; N93.9 Abnormal uterine and vaginal bleeding, unspecified; T45.515A Adverse effect of anticoagulants, initial encounter; I95.2 Hypotension due to drugs; T46.2X5A Adverse effect of other antidysrhythmic drugs, initial encounter; N28.9 Disorder of kidney and ureter, unspecified; Y92.238 Other place in hospital as the place of occurrence of the external cause; Z99.81 Dependence on supplemental oxygen; Y92.230 Patient room in hospital as the place of occurrence of the external cause; Z79.51 Long term (current) use of inhaled steroids; Z79.899 Other long term (current) drug therapy
CPT/HCPCS: 36415; 71010; 80048; 80053; 83605; 83690; 83735; 83880; 84100; 84439; 84484; 85025; 85610; 93005; 93306; 94640; 94664; 94761; 96361; 96374; 99284; 99285

== ENCOUNTER 2017-05-12 08:16 | Outpatient (CLI) | payer BC ==
--- NOTE | 2017-05-12 09:07 | Ultrasound Report ---
EXAM: THYROID ULTRASOUND EXAM DATE: 05/12/2017 08:51 AM. CLINICAL HISTORY: THYROID NODULE. COMPARISON: CT/MR 04/19/2017.. TECHNIQUE: Real time sonographic imaging of the thyroid was performed by the family service worker. Multiple re presentative static images were saved for review. FINDINGS: THYROID GLAND: Right Lobe: 4.4 x 2.0 x 1.6 cm, volume 7.4 cc. Normal background echotexture. Right Lobe Nodules: 1. Upper pole 3 x 3 x 3 mm cystic nodule. Left Lobe: 4.4 x 2.4 x 1.6 cm, volume 8.3 cc. Normal background echotexture. Left Lobe Nodules: 1. Lower pole 18 x 12 x 16 mm circumscribed wider predominantly solid complex nodule which is heterog eneously mildly hypoechoic. Isthmus: 0.4 cm AP. Isthmic Nodules: None. LYMPH NODES: No adenopathy demonstrated in the central or lateral compartment. OTHER: None. IMPRESSION: 1. Thyroid nodules as described above. Dominant lower pole left thyroid nodule meets criteria for con sideration of ultrasound-guided FNA biopsy, if not already performed. Otherwise continued ultrasound surveillance in 6-12 months is recommended. Management recommendations are based on 2015 [place] [employer] Management Guidelines for A dult Patients with Thyroid Nodules and Differentiated Thyroid Cancer. [facility] Referring Provider Line: [phone] SITE ID: [id number]
== END 2017-05-12 08:17 | disposition home or self-care (01) ==
LOC: DI 08:16
PROVIDERS: ATTEND Internal Medicine
DX: E04.2 Nontoxic multinodular goiter (principal)
CPT/HCPCS: 76536

== ENCOUNTER 2017-08-08 20:08 | Outpatient (CLI) | payer OTHER | END 2017-08-08 20:09 | disposition critical access hospital (66) | LOC: EMS 20:08 | PROVIDERS: ATTEND Surgery | DX: R55 Syncope and collapse (principal); R10.9 Unspecified abdominal pain | CPT/HCPCS: A0425; A0427 ==

== ENCOUNTER 2017-08-08 20:30 | Observation (INO) | payer OTHER ==
[2017-08-08] MEDS ORDERED: SODIUM CHLORIDE 0.9% 1,000 ML IV ONE (20:49)
--- NOTE | 2017-08-08 20:59 | ED Physician Documentation ---
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 She reports that she has been in her usual state of poor health, having to lie down to eat and eating once per day when this evening she felt the need to go to the bathroom and developed diaphoresis and had a syncopal episode while on the camode. She had to crawl to the phone to call 911 and she is brought in with 2 ivs running with hypotension in the low 70's. Review of Systems Constitutional: denies: Fever Eyes: denies: Decreased vision Ears: denies: Ear pain Nose: denies: Rhinorrhea / runny nose, Congestion Throat: denies: Sore throat Cardiac: denies: Chest pain / pressure, Palpitations Respiratory: denies: Dyspnea, Cough GI: reports: Abdominal Pain, Nausea. denies: Vomiting, Diarrhea, Bloody / black stool : denies: Dysuria, Frequency Skin: denies: Rash Musculoskeletal: denies: Neck pain, Back pain, Extremity pain Neurologic: reports: Generalized weakness. denies: Focal weakness, Numbness PD PAST MEDICAL HISTORY - Past Medical History Cardiovascular: Hypertension, Atrial fibrillation Respiratory: COPD Neuro: None Endocrine/Autoimmune: None GI: Other (Ruptured appendicitis ) : None HEENT: None Psych: Anxiety Musculoskeletal: None Derm: None - Past Surgical History Past Surgical History: No General: Appendectomy - Present Medications Home Medications: Ambulatory Orders Medication Instructions Recorded Confirmed Lisinopril [Zestril] 40 mg PO DAILY 10/27/12 08/08/17 Ipratropium/Albuterol [Combivent 1 puffs INH QID 03/18/17 08/08/17 Respimat] hydroCHLOROthiazide [Hydrodiuril] 12.5 mg PO DAILY 03/18/17 08/08/17 Albuterol 2.5 mg INH Q4H PRN 04/18/17 08/08/17 Carvedilol 12.5 mg PO BID 04/18/17 08/08/17 Pantoprazole [Protonix] 40 mg PO DAILY #30 tablet 04/20/17 08/08/17 - Allergies Allergies/Adverse Reactions: Allergies Allergy/AdvReac Type Severity Reaction Status Date / Time No Known Drug Allergies Allergy Verified 08/08/17 20:39 - Social History Does the pt smoke?: No Smoking Status: Former smoker Does the pt drink ETOH?: No Does the pt have substance abuse?: No - POLST Patient has POLST: No POLST Status: Full Code PD ED PE NORMAL - Vitals Vital signs reviewed: Yes (tachy and hypotensive ) - General General: Well developed/nourished, Other (The patient is 61 y/o female with a kam skin coloring sitting upright with her eyes closed complaining of being light headed and not feeling well.) - HEENT HEENT: Atraumatic, PERRL, EOMI, Other (dry mucous membranes) - Neck Neck: Supple, no meningeal sign, No bony TTP - Cardiac Cardiac: Other (regular tachycardia with 2/6 holosystolic murmer radiating into the left axilla and across the chest anteriorly ) - Respiratory Respiratory: No respiratory distress, Other (minimal rhonchi in the left base ) - Abdomen Abdomen: Normal bowel sounds, Soft, Other (mild tendernes ) - Back Back: No CVA TTP, No spinal TTP - Derm Derm: Normal color, Warm and dry, No rash - Extremities Extremities: No deformity, No edema - Neuro Neuro: Alert and oriented X 3, counter attendant 2-12 intact, No motor deficit, No sensory deficit, Normal speech Eye Opening: Spontaneous Motor: Obeys Commands Verbal: Oriented GCS Score: 15 - Psych Psych: Other (mood is withdrawn and the affect is flat. ) PD ED PE EXPANDED - Rectal Rectal: Heme Occult Pos - QC +, Normal Tone, Business Office Associate present (Ирина), Other ( brown liquid stool ). No: Mass, Hemorrhoid, Fissure Results - Vitals Vitals: Vital Signs - 24 hr 08/08/17 08/08/17 08/08/17 20:34 21:06 21:11 Temperature 36.4 C L Heart Rate 101 H 98 Respiratory 23 20 Rate Blood Pressure 78/37 L 64/44 L 76/61 L O2 Saturation 99 96 08/08/17 08/08/17 08/08/17 21:17 21:50 21:58 Temperature Heart Rate 93 99 94 Respiratory 20 19 20 Rate Blood Pressure 75/58 L 92/72 85/52 L O2 Saturation 90 L 98 96 08/08/17 08/08/17 08/08/17 22:09 22:19 22:23 Temperature 37.4 C 36.5 C Heart Rate 101 H 99 98 Respiratory 20 17 15 Rate Blood Pressure 85/68 L 92/69 103/63 O2 Saturation 100 08/08/17 08/08/17 22:36 22:55 Temperature 37.3 C 37.3 C Heart Rate 100 93 Respiratory 20 21 Rate Blood Pressure 93/68 105/70 O2 Saturation 96 Oxygen O2 Source Nasal cannula - EKG (time done) 2031 Rate: Rate (enter#) (100) Rhythm: Sinus tachycardia Ischemia: ST depression, Q waves Compare to prior EKG: Changed from prior EKG (SPT ST depression in lateral leads has occurred.) - Labs Labs: Laboratory Tests 08/08/17 08/08/17 08/08/17 20:45 20:45 20:45 WBC 8.7 RBC 2.90 L Hgb 5.9 L* Hct 20.3 L MCV 70.2 L MCH 20.2 L MCHC 28.8 L RDW 19.0 H Plt Count 356 MPV 6.5 L Neut # Not Reportable Lymph # Not Reportable [place] # Not Reportable Eos # Not Reportable Baso # Not Reportable Absolute Nucleated RBC Not Reportable Total Counted 100 Band Neuts % (Manual) 0 Abnorm Lymph % (Manual) 0 Nucleated RBC % Not Reportable Neutrophils # (Manual) 6.3 Lymphocytes # (Manual) 2.3 Monocytes # (Manual) 0.1 Eosinophils # (Manual) 0.0 Basophils # (Manual) 0.1 Differential Comment MANUAL DIFFERENTIAL Manual Slide Review Indicated Platelet Estimate NORMAL (130-450,000) Platelet Morphology NORMAL APPEARANCE RBC Morph Micro Appear 2+ MICROCYTOSIS Sodium 140 Potassium 4.3 Chloride 106 Carbon Dioxide 24 Anion Gap 10.0 BUN 26 H Creatinine 0.9 Estimated GFR (MDRD) 63 L Glucose 94 Lactic Acid Calcium 8.4 L Total Bilirubin 0.7 AST 19 ALT 10 Alkaline Phosphatase 63 Troponin I < 0.04 B-Natriuretic Peptide Total Protein 6.1 L Albumin 3.2 Globulin 2.9 Albumin/Globulin Ratio 1.1 Lipase 24 Blood Type Antibody Screen Crossmatch IS Only 08/08/17 08/08/17 08/08/17 20:45 20:45 20:45 WBC RBC Hgb Hct MCV MCH MCHC RDW Plt Count MPV Neut # Lymph # [place] # Eos # Baso # Absolute Nucleated RBC Total Counted Band Neuts % (Manual) Abnorm Lymph % (Manual) Nucleated RBC % Neutrophils # (Manual) Lymphocytes # (Manual) Monocytes # (Manual) Eosinophils # (Manual) Basophils # (Manual) Differential Comment Manual Slide Review Platelet Estimate Platelet Morphology RBC Morph Micro Appear Sodium Potassium Chloride Carbon Dioxide Anion Gap BUN Creatinine Estimated GFR (MDRD) Glucose Lactic Acid 2.5 H Calcium Total Bilirubin AST ALT Alkaline Phosphatase Troponin I B-Natriuretic Peptide 78 Total Protein Albumin Globulin Albumin/Globulin Ratio Lipase Blood Type O POSITIVE Antibody Screen NEGATIVE Crossmatch IS Only See Detail - Rads (name of study) 1 view chest Radiology: Prelim report reviewed (Impression: No acute intrathoracic plain film abnormality.), EMP read indepedently, See rad report Procedures - FAST exam (time) 2036 FAST exam: No: Free fluid RUQ, Free fluid LUQ, Free fluid suprapubic, Pericardial effusion - IVC sono (time) 2037 Bedside IVC sono: IVC measures (cm) (1.49), IVC collapsed c insp (cm) (complete) , Low CVP, Dehydration (est 1 liter deficit) PD MEDICAL DECISION MAKING - ED course Complexity details: reviewed old records, reviewed results, re-evaluated patient , considered differential, d/w patient ED course: 61-year-old female with a history of prior GI bleeding has arrived in the emergency department this evening hypotensive and we have found her hemoglobin to be 5.9 and she is immediately transfused 1 unit of O- blood with improvement in her blood pressure. She has brown guiac + liquid stool. A second unit of blood this time typed and cross matched is administered and the patient is admitted to the hospital. She appears to have failed outpatient follow up on a number of findings from her most recent hospitalization. Dr. Glasgow is consulted in the case for admission. - Critical Care Time(min): 45 Time Includes: Direct patient care, Review records, Reassess patient, Document care, Coordinate care, Medical consult Data interpretation: Labs, CXR Procedures excluded from critical care time: EKG Departure - Departure Disposition: ED Place in Observation Clinical Impression: GI bleed Qualifiers: GI bleed type/associated pathology: unspecified gastrointestinal hemorrhage type Qualified Code(s): K92.2 - Gastrointestinal hemorrhage, unspecified Condition: Critical Discharge Date/Time: 08/09/17 00:45
[2017-08-08 21:00] LABS: BASOPHILS % (AUTO) 1.1 %; EOSINOPHILS % (AUTO) 1.9 %; LYMPHOCYTES % (AUTO) 23.5 %; MEAN CORPUSCULAR HEMOGLOBIN 20.2 pg (27.0-31.0); MEAN CORPUSCULAR HGB CONC 28.8 g/dL (32.0-36.0); MEAN CORPUSCULAR VOLUME 70.2 fL (81.0-99.0); MEAN PLATELET VOLUME 6.5 fL (7.9-10.8); MONOCYTES % (AUTO) 7.8 %; NEUTROPHILS % (AUTO) 65.7 %; PLT - PLATELET COUNT 356 10^3/uL (130-450); WHITE BLOOD COUNT 8.7 x10^3/uL (4.8-10.8)
[2017-08-08 21:08] LABS: ALBUMIN 3.2 g/dL (3.2-5.5); ALBUMIN/GLOBULIN RATIO 1.1 (1.0-2.2); BILIRUBIN,TOTAL 0.7 mg/dL (0.2-1.0); CALCIUM 8.4 mg/dL (8.5-10.3); CREATININE 0.9 mg/dL (0.4-1.0); HGB - HEMOGLOBIN 5.9 g/dL (12.0-16.0); TOTAL PROTEIN 6.1 g/dL (6.7-8.2)
[2017-08-08 21:09] LABS: ABNORMAL LYMPHS % (MANUAL) 0 %; BAND NEUTROPHILS % (MANUAL) 0 %
--- NOTE | 2017-08-08 21:22 | XRAY Report ---
EXAM: CHEST RADIOGRAPHY EXAM DATE: 08/08/2017 09:09 PM. CLINICAL HISTORY: Syncope, dyspnea COMPARISON: 04/18/2017. TECHNIQUE: 1 view. FINDINGS: Lungs/Pleura: No acute focal opacities evident. No pleural effusion. No pneumothorax. Mediastinum: Mild cardiomegaly. Other: There is right convex scoliosis. IMPRESSION: No acute intrathoracic plain film abnormality. [facility] Referring Provider Line: [phone] SITE ID: [id number]
[2017-08-08 21:50] LABS: BASOPHILS # (MANUAL) 0.1 10^3/uL (0-0.1); BASOPHILS % (MANUAL) 1 %; DIFFERENTIAL COMMENT MANUAL DIFFERENTIAL; LYMPHOCYTES # (MANUAL) 2.3 10^3/uL (1.5-3.5); LYMPHOCYTES % (MANUAL) 26 %; MONOCYTES # (MANUAL) 0.1 10^3/uL (0.0-1.0); NEUTROPHILS # (MANUAL) 6.3 10^3/uL (1.5-6.6); NEUTROPHILS % (MANUAL) 72 %; PLATELET ESTIMATE, MANUAL NORMAL (130-450,000) (NORMAL); PLATELET MORPHOLOGY NORMAL APPEARANCE (NORMAL)
[2017-08-08] MEDS ORDERED: ONDANSETRON 4 MG/2 ML VIAL IVP PRN (23:08)
[2017-08-08] MEDS ORDERED: ONDANSETRON ODT 4 MG TABLET TL PRN (23:08)
[2017-08-08] MEDS ORDERED: ACETAMINOPHEN 325 MG TABLET PO PRN (23:08)
[2017-08-09] MEDS: SODIUM CHLORIDE FLUSH 0.9% 10 ML SYRINGE IVP SCH ×2 (02:02→08:51)
[2017-08-09] MEDS: PANTOPRAZOLE 40 MG VIAL IVP SCH ×2 (02:02→06:45)
[2017-08-09] MEDS: SODIUM CHLORIDE FLUSH 0.9% 10 ML SYRINGE IVP PRN ×3 (02:03→06:45)
--- NOTE | 2017-08-09 02:12 | HISTORY & PHYSICAL EXAMINATION ---
DATE OF SERVICE: 08/08/2017 Physician: Leonarda Glasgow MD PRIMARY CARE PROVIDER: Yung Gay MD ADMITTING PROVIDER: Leonarda Glasgow MD CHIEF COMPLAINT: Syncope. HISTORY OF PRESENT ILLNESS: The patient is an interesting 61-year-old female who is an intermittent tobacco smoker, has emphysema. She was admitted in April 2017 with dizziness, hypotension and tachycardia. She was found to have guaiac-positive stool and a hemoglobin that was 8.1. In looking at her hemoglobins over the previous year, including an admission in March 2017, her hemoglobin had been relatively normal. In the emergency room, stool was black and tarry. She had been having occasional diarrhea, but she did not identify it as black and tarry. Her main abdominal complaint centers around chronic epigastric pain. She had an appendectomy for a perforated appendix in 2015, and ever since then, she has epigastric pain when she eats. She says that she actually has epigastric pain from the first moment when she gets up in the morning until she goes to bed at night. When she goes to sit at a table to eat, her stomach will start to hurt even more. In order to eat and maintain her weight, she will load up a plate or tray with food, go into her bedroom and lie down and sit propped up on pillows to eat. She then "stuffs her face once a day" to keep her caloric intake in. Bowel movements have been easy. There are no black tarry stools even though the emergency room visit had her with black tarry stools in April of 2017. With her April 2017 admission, several things were found out. First of all, an EGD was negative for gastritis, but blood was seen coming from the nasopharynx, as the EGD tube was withdrawn. CT of the neck at that time showed a possible nasopharyngeal mass. Subsequent to that admission, she had an MRI and there was no nasopharyngeal mass. No tumors. However, there was an incidental thyroid nodule. An ultrasound of the thyroid was done and that was negative. Also done with that April admission was a CT of the abdomen and pelvis. She had CT of the abdomen and pelvis in August 2015 and then with the April [address] of the abdomen and pelvis showed no colon pathology. Emphysema with chronic lingular scarring was present. The liver had continued scattered cysts but no masses. Gallbladder and bile ducts were unremarkable. Pancreas and spleen were unremarkable. However, she had evidence of obstruction of the endometrial canal at the level of the cervix with fluid-filled, distended uterine cavity measuring 6 x 5 x 5 cm. The cervix appeared somewhat bulbous. No adnexal masses. She denies postmenopausal bleeding. She is indignant at the idea of having to see an linux developer. So, even though her primary care provider recommended that she see one and made a referral, she has not kept that appointment. She continues to adamantly deny that she has melena or hematochezia. She does not take any nonsteroidals. She intermittently takes the proton pump inhibitor that she was prescribed in April 2017. She continues to smoke anywhere from 5-7 cigarettes a day. With this history in mind, she had not been feeling well over the last few days. She cannot be very specific about it, other than she was feeling more weak than usual, more abdominal epigastric pain than usual. She sometimes would break out into a cold sweat. She does have a history of Takotsubo cardiomyopathy and is on medications for that, but she denied edema, orthopnea or chest pain. She got up to go to the bathroom and then while sitting on the toilet, passed out. She awoke some time later still sitting on the toilet. She got off the toilet and crawled to the phone and called 911. Systolic pressure was 69. She was afebrile and slightly tachycardic at 101. Her troponins are negative. Lactic acid is mildly elevated at 2.5. BUN and creatinine are stable, but her hemoglobin is again down to 5.9. When she was discharged in April 2017, her discharge hemoglobin was 8.1. In 2012 and 2015, her hemoglobin was normal. She started dropping in 2015 in June when she was down to 10.9. She rebounded in February 2017 to a 12.2 hemoglobin. She was transfused one O-negative unit, then 2 more units of typed and crossed. One more unit is pending. With this, her blood pressure has gone from 69 systolic to 105 systolic. She was quite pale, lethargic and very flat in her affect when she came in and is now, I think, back to a baseline of a curmudgeon-like personality, angry at being here, annoyed at the process, indignant that Dr. Gay even suggested that she see an FILTER TIP INSPECTOR person, indignant at the idea that she will have to undergo any further analysis at this time. She is tired of seeing all of these providers, tired of meeting yet another doctor such as myself. She wishes that she could have one doctor for 08/01 for the entire time she is here. PAST MEDICAL HISTORY 1. Hypertension. She again gets indignant about that diagnosis. 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 Dr. Gay put her on blood pressure medicines, and now, she has too low of a blood pressure and she is passing out. I gently remind her that it is not so much the blood pressure medicine as the anemia. She does not want to hear it. 2. Hyperlipidemia. 3. New onset atrial fibrillation in March 2017. At that point in time, she had no previous cardiac history. The only thing that was unusual about her cardiac history was that of tachycardia associated with the perforated appendicitis in June 2015. A June 2015 echocardiogram showed sinus rhythm, a hyperdynamic ventricle, systolic function 75%. Right ventricle moderately dilated with systolic function mildly reduced. Moderate pulmonary hypertension with right ventricular systolic pressure at 56 mmHg. A repeat echocardiogram when she presented with atrial fibrillation in February 2017 showed the new underlying rhythm of atrial fibrillation, left ventricular size that was normal and an ejection fraction of 65% to 70%. The right ventricle was normal in size and function. No significant valvular abnormality. She is not anticoagulated. Rate control is with carvedilol. 4. Takotsubo cardiomyopathy in the past. Treated with FORTINO inhibitor and beta cadence. 5. COPD, seen on numerous chest x-rays and CTs. 6. Ruptured appendicitis, June of 2015. 7. G9, P3-0-6-3. She has had 3 miscarriages and 3 abortions. These were from an incompetent cervix. 8. Generalized anxiety disorder. ALLERGIES: NO KNOWN DRUG ALLERGIES. MEDICATIONS 1. Albuterol via nebulizer every 4 hours as needed. 2. Carvedilol 12.5 mg p.o. b.i.d. 3. Hydrochlorothiazide 12.5 mg p.o. daily. 4. DuoNeb via puffer q.i.d. 5. Zestril 40 daily. 6. Protonix 40 daily. SOCIAL HISTORY: She was born in [place] and moved to [facility] at the age of 5. She is . She has 3 children, but none of them live on [facility]. 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 Since her April discharge, she was unable to pass her DMV examination for driving and has not driven since. She started smoking at the age of 17 and smokes anywhere from 5 cigarettes to half a pack per day, but she says that she will stop for 2 months, then resume for 2 months, and stop for 2 months, etc. She never has had a history of alcohol abuse or recreational substance abuse. She lives in her own home in [place]. She states she is usually able to complete her activities of daily living without any help. She cooks, drives, cleans her own home ostensibly. FAMILY HISTORY: Mom is in her 80s, alive and well. Dad in his 50s of heart disease. Her twin sister . She does not know what she from. One brother of lung cancer. Her 3 children are healthy, without any major medical illnesses of cancer, heart disease, bleeding dyscrasias, thyroid disease, etc. REVIEW OF SYSTEMS: We are getting to the point where she does not want to answer any more questions and she is irritated and having to speak to another doctor. What I can glean from her is that she has had no unexpected weight changes in spite of her inability to eat. Diaphoresis was only tonight when she passed out. She has had no fevers, chills or sweats. ENT: Denies any problems with eyes, swallowing, has poor dentition. PULMONARY: Always coughs. Always a little short of breath. Smokes intermittently but denies hemoptysis, any change in status. No chest congestion. No change in the color of her phlegm. Pulmonary positive as above but denies edema or orthopnea. ABDOMEN: Epigastric abdominal pain, as above. : Denies postmenopausal vaginal bleeding. She is not sexually active. JOINTS: They hurt in the morning, "What would you do if you were old like me?", but no trauma, no fractures. SKIN: No new rashes, no new lesions. PSYCHIATRIC: Anxiety, but denies depression, suicidal ideation. MAIL CARRIER: Denies hallucinations, paranoid ideations, memory loss. Syncope and near dizziness has now been associated with 2 episodes of anemia. PHYSICAL EXAMINATION GENERAL: She is seen in the emergency room with a temperature of 37.3, pulse 93, blood pressure 105/70, respirations 21, and 96% on 2 liters. She has now been resuscitated with 3 units of blood, 2 liters of 0.9 normal saline, and has nasal cannula oxygen. HEAD: Exam shows the poor dentition, a low, rough voice, sclerae that are muddy but nonicteric, dry oral mucosa, still pale oral mucosa, lori-red pink cheeks. Back of throat has no masses. NECK: Shotty adenopathy. No bruits. LUNGS: Prolonged end-exhalation phase, but no crackles, rhonchi, wheezing or tachypnea. No right ventricular lift. ABDOMEN: Soft, CARDIAC: Exam has a tachycardic, irregular rate and rhythm with a harsh systolic murmur. ABDOMEN: Soft, hypoactive bowel sounds, nontender. No masses. She does have bilateral femoral bruits and I do hear mid abdominal bruit. RECTAL: Done by Dr. Steward. Dr. Steward's rectal exam was fecal occult blood positive, but not melenic. After exam, the patient got up to go to the bathroom at the bedside commode, and stool was dark and smelled strongly of blood. EXTREMITIES: Rubor, slight clubbing of the fingers. No cyanosis, no edema and the distortions of osteoarthritis. NEUROLOGIC: She has gone from a patient that was described as flat affect, almost lethargic, to now quite awake, quite indignant, and overall very cranky. She is moving all extremities spontaneously. Cranial nerves appear all grossly intact with 1 not tested. She is able to sit up on the side of the bed with minimal dizziness and get up to go to the bathroom and get back in again with only standby assist. LABORATORY DATA: White cell count is 8.7, hemoglobin 5.9, hematocrit 20.3, platelets 356. INR was 1.2 in April of 2017. Sodium 140, potassium 4.3, BUN 26, creatinine 0.9, random glucose 94, lactic acid 2.5. Liver enzymes normal. Troponin less than 0.04. BNP 78. Chest x-ray tonight with no acute intrathoracic abnormality. Again, review of her workup shows the abdomen and pelvis CT from 04/18/2017 with the uterine pathology. A soft tissue neck CT showing possible nasopharyngeal mass. A subsequent soft tissue neck MRI showing no nasopharyngeal mass or tumor. Incidental thyroid nodule. Soft tissue ultrasound of the neck done subsequent to that with thyroid nodules in the right and left lobe that all appear solid, complex, and heterogeneously mildly hypoechoic. The dominant left lower pole left thyroid nodule meets criteria for consideration of ultrasound-guided FNA. ASSESSMENT/PLAN 1. Orthostatic hypotension secondary to severe anemia. Currently responding to the blood transfusions, and fluid resuscitation. I will be holding her blood pressure medicines and diuretics. 2. Chronic anemia. It appears to be from chronic blood loss of some type. Unclear as to the source. She had a partial gastrointestinal workup with an esophagogastroduodenoscopy in April. She has not had a colonoscopy, and she is stating that she is not going to get a colonoscopy. She has a uterine fluid collection from April of 2017 that she refuses to see Database Management Specialist for. Currently in the emergency room, she is having malodorous stool that is fecal occult blood positive. The most I can get her to agree to is transfusions to stabilize her anemia. I am hoping that she and Dr. Gay can reach some agreement as to completing her follow-through with General Surgery for colonoscopy, and Database Management Specialist for her uterine pathology. I do not think she needs an EGD repeated. I do not feel she is actively bleeding enough to warrant a nuclear medicine red cell tagged scan, but if she does have active bleeding in the next few hours, we will order that study as well. 3. Chronic obstructive pulmonary disease history. Continue nebulizers during her stay. At this time, she does not have acute exacerbation. Encouraged to stop smoking completely and permanently. She replies that I do not have to tell her that. I explained that I still need to say the words because some patients will actually state that no one ever told them that they needed to stop smoking. I wanted to make sure that it was documented somewhere that she has been told to stop smoking. 4. Epigastric abdominal pain. This woman has had an esophagogastroduodenoscopy, an abdomen and pelvis CT in August 2015 and April 2017. Strongly associated with food and made worse by food. Will check gallbladder ultrasound. Previous CT showed no stones or gallbladder pathology. If ultrasound is negative, consider CCK HIDA. Continue proton pump inhibitors. 5. DO NOT RESUSCITATE status. 6. Deep venous thrombosis prophylaxis will be DONY forbes. With her anemia, risk of continued bleeding is possible, and I will hold off on Lovenox. In looking at the 2 echos from her appendicitis admission and then her subsequent admission showing resolution of pulmonary hypertension, I wonder if she had a pulmonary embolism associated with her appendicitis in June 2015. TD: 08/09/2017 02:11
[2017-08-09] MEDS: ALBUTEROL NEB 2.5 MG/3 ML INH PRN ×3 (02:20→09:57)
--- NOTE | 2017-08-09 03:03 | Ultrasound Preliminary Report ---
Exam: US ABDOMEN COMPLETE IMPRESSION: 1. Liver cysts noted. Diffuse heterogeneous liver parenchyma. No solid mass or intrahepatic bile duct dilation. 2. Normal gallbladder and common bile duct. Pancreas obscured by bowel gas. [facility] SITE ID: [id number]
--- NOTE | 2017-08-09 03:08 | Ultrasound Preliminary Report ---
Exam: US PELVIC W/TRANSVAGINAL IMPRESSION: 1. No normal endometrium is seen. Diffuse distention of the endometrial canal filled with echogenic d ebris, likely representing blood products. Differential would include a cervical cancer or cervical s tenosis. 2. Heterogeneous solid exophytic nodule extending into the endometrial canal with a possible vascular stalk. Findings could represent an endometrial or uterine fibroid. 3. No definite cervical mass. Nonetheless, this be better evaluated with direct visualization with pe lvic examination. 4. Neither ovary seen. No adnexal lesions. [facility] The above findings were discussed with [place] by Dr. Amy Navarrete at 03:07 hrs on 08/09/17. SITE ID: [id number]
--- NOTE | 2017-08-09 03:14 | Ultrasound Report ---
EXAM: ABDOMEN ULTRASOUND EXAM DATE: 08/09/2017 02:22 AM. CLINICAL HISTORY: Epigastric pain with eating, history of uterine mass. COMPARISON: None. TECHNIQUE: Real-time scanning was performed with static images obtained. FINDINGS: Liver: Heterogeneous and hyperechoic liver with multiple cysts. No mass. The largest cyst is present in the left liver measuring 0.9 cm. Right liver measures 17.2 cm. Main portal vein flow: Hepatopetal. Gallbladder: Normal. No stones, wall thickening, or sonographic Arreola's sign. Biliary System: Common bile duct measures 7 mm. No intrahepatic or extrahepatic ductal dilatation. Pancreas: Poorly seen due to bowel gas. Kidneys: Right: 11.5 cm longitudinally. Normal. No contour-deforming mass, stones, or hydronephrosis. Simple 1 .5 cm upper right renal cortical cyst. Left: 11.2 cm longitudinally. Normal. No contour-deforming mass, stones, or hydronephrosis. Spleen: 10 x 3 x 7.6 cm. Normal in size and echotexture. Aorta and Inferior Vena Cava: Diffuse atheromatous calcified plaques are present throughout the abdom inal aorta. No aneurysm. Normal IVC. Other: Study limited due to body habitus. Patient was unable to lie supine. Patient was unable to hol d her breath further limiting the study. IMPRESSION: 1. Liver cysts noted. Diffusely heterogeneous liver parenchyma. No solid mass or intrahepatic bile du ct dilation. 2. Normal gallbladder and common bile duct. Pancreas obscured by bowel gas. [facility] Referring Provider Line: [phone] SITE ID: [id number]
--- NOTE | 2017-08-09 03:39 | Ultrasound Report ---
EXAM: PELVIC ULTRASOUND EXAM DATE: 08/09/2017 01:37 AM. CLINICAL HISTORY: Uterine mass on CT 04/2017. COMPARISON: 04/18/2017. TECHNIQUE: Real-time transabdominal pelvic scan performed to identify the uterus and adnexa and as an overview of other pelvic structures, followed by transvaginal scan to provide greater detail of the uterus and adnexa, with static image documentation. FINDINGS: Uterus: 9 x 4.9 x 7.2 cm, volume 168 cc. Anteverted position. Normal overall size and echotexture. Masses: None. Endometrium: No normal endometrium is noted. The endometrial canal appears distended and filled with echogenic, avascular debris. The distended endometrial canal measures at least 4.6 x 4.4 x 4.2 cm. Th ere is a nodular intraluminal echogenic lesion at the left uterine body level extending into echogeni c fluid. There is a suggestion of a vascular stalk on image 26. Cervix: Scattered hyperechoic shadowing and non-shadowing foci noted in the cervix. No distinct mass is noted. Right Ovary: Ovary not seen. No adnexal abnormality. Left Ovary: Ovary not seen. No adnexal abnormality. Free Fluid: None. Other: None. IMPRESSION: 1. No normal endometrium is seen. Diffuse distention of the endometrial canal filled with echogenic d ebris, likely representing blood products. Differential would include a cervical cancer or cervical s tenosis. 2. Heterogeneous solid exophytic nodule extending into the endometrial canal with a possible vascular stalk. Findings could represent an endometrial or uterine fibroid. 3. No definite cervical mass. Nonetheless, this could be better evaluated with direct visualization w ith pelvic examination. 4. Neither ovary seen. No adnexal lesions. [facility] The above findings were discussed with [place] by Dr. Amy Navarrete at 03:07 hrs on 08/09/17. Referring Provider Line: [phone] SITE ID: [id number]
[2017-08-09 06:07] LABS: BILIRUBIN,URINE NEGATIVE (NEGATIVE); GLUCOSE, URINE (UA) NEGATIVE (NEGATIVE); KETONES,URINE (UA) NEGATIVE (NEGATIVE); LEUKOCYTE ESTERASE, URINE NEGATIVE (NEGATIVE); NITRITE,URINE NEGATIVE (NEGATIVE); OCCULT BLOOD,URINE SMALL (NEGATIVE); PROTEIN,URINE NEGATIVE (NEGATIVE); UROBILINOGEN,URINE 0.2 (NORMAL) E.U./dL (NORMAL)
[2017-08-09 06:18] LABS: CLARITY,URINE CLEAR (CLEAR)
[2017-08-09 06:19] LABS: BACTERIA,URINE Rare /HPF (None Seen); RBC,URINE 0-5 /HPF (0-5); SQUAMOUS EPITHELIAL CELL,UR MOD Squamous (<= Few)
[2017-08-09 08:01] LABS: BASOPHILS # (AUTO) 0.1 10^3/uL (0.0-0.1); BASOPHILS % (AUTO) 0.8 %; EOSINOPHILS % (AUTO) 0.6 %; HGB - HEMOGLOBIN 10.2 g/dL (12.0-16.0); LYMPHOCYTES # (AUTO) 1.7 10^3/uL (1.5-3.5); LYMPHOCYTES % (AUTO) 22.6 %; MEAN CORPUSCULAR HEMOGLOBIN 24.9 pg (27.0-31.0); MEAN CORPUSCULAR HGB CONC 31.7 g/dL (32.0-36.0); MEAN CORPUSCULAR VOLUME 78.6 fL (81.0-99.0); MEAN PLATELET VOLUME 6.8 fL (7.9-10.8); MONOCYTES # (AUTO) 0.9 10^3/uL (0.0-1.0); MONOCYTES % (AUTO) 12.1 %; NEUTROPHILS # (AUTO) 4.9 10^3/uL (1.5-6.6); NEUTROPHILS % (AUTO) 63.9 %; PLT - PLATELET COUNT 235 10^3/uL (130-450); RED CELL DISTRIBUTION WIDTH 19.8 % (12.0-15.0); WHITE BLOOD COUNT 7.7 x10^3/uL (4.8-10.8)
--- NOTE | 2017-08-09 08:07 | Discharge Plan ---
Discharge Plan Disposition: 01 Home, Self Care Condition: Good Diet: Regular Activity Restrictions: Activity as Tolerated Shower Restrictions: No Driving Restrictions: Yes (per DMV restrictions) Additional Instructions or Follow Up instructions: You were admitted to the hospital because you passed out while going to the bathroom. We found out that the cause of your passing out was a very low blood pressure. And the low blood pressure is from a severe anemia. A normal amount of blood is about 12 grams and you had 5 grams. We transfused you 4 units of blood and you are now 10 grams of hemoglobin. This was successful in bringing up your blood pressure. When you first came in, your blood pressure was 69 systolic. At discharge you are 121 systolic. While here, we reviewed what happened to you last time you were in the hospital April 2017. The issue of possibly having a tumor in the back of your throat and below your sinuses where they drain in your throat was laid to rest. Dr. Gay ordered an MRI, and the MRI shows you do not have a tumor there. However the MRI did find a thyroid nodule that you need to have looked at in October 2017 in followup. The other thing we found during your last admission from April was a uterine mass. You were going to see a machine finisher in [place] but you did not have the money because you are still paying for your stay last time. I strongly encourage you to follow through on that. Right now we think your anemia is either from lower GI bleeding in your bowel, or tumor in your uterus. When you had a bowel movement here, your stool smelled as if you had blood in your stool but it could be the smell in your vaginia from the old blood there. Ultrasound of your pelvis was done again and shows that there is blood and fluid accumulating in your uterus and it is getting bigger. It is not able to get out of you because your cervix is closed and scarred and stenosed. Please see Dr. Gay in follow-up in the next 1-2 weeks. He may be able to guide you to get that referral to the machine finisher. And he will need to refer you to the general surgery office for you to get a colonoscopy. He may also possibly order a blood draw to recheck your red blood cell level. No Smoking: If you smoke, Please STOP! Call for help. Follow-up with: Yung Gay MD [Primary Care Provider] -
[2017-08-09 08:11] VITALS: BP 121/66
[2017-08-09] MEDS ORDERED: POLYETHYLENE GLYCOL 3350 17 GM PACKET PO SCH (09:00)
[2017-08-09] MEDS ORDERED: CARVEDILOL 12.5 MG TABLET PO SCH (09:00)
--- NOTE | 2017-08-11 06:11 | DISCHARGE SUMMARY ---
Physician: Leonarda Glasgow MD DATE OF ADMISSION: 08/08/2017 DATE OF DISCHARGE: 08/09/2017 PRIMARY CARE PROVIDER: Yung Gay MD DISCHARGE DIAGNOSES 1. Orthostatic hypotension. 2. Severe anemia. 3. Abnormal pelvic ultrasound. 4. Chronic obstructive pulmonary disease. 5. Epigastric abdominal pain. DISCHARGE MEDICATIONS 1. Albuterol via nebulizer every 4 hours as needed. 2. Carvedilol 12.5 mg p.o. b.i.d. 3. Advair 254/50 one puff b.i.d. 4. HydroDIURIL 12.5 mg daily. 5. DuoNeb aerosolized 1 puff q.i.d. 6. DuoNeb via nebulizer b.i.d. p.r.n. 7. Lisinopril 40 mg daily. 8. Protonix 40 mg daily. 9. Ranitidine 150 mg p.o. q.p.m. PRINCIPAL PROCEDURES 1. Transfusion of 4 units. 2. Blood cultures no growth after 2 days. 3. Chest x-ray with no acute intrathoracic abnormality. 4. Pelvic/transvaginal ultrasound with no normal endometrium seen. Diffuse distention of the endometrial canal filled with echogenic debris likely representing blood products. Differential would include cervical cancer or cervical stenosis. Heterogeneous solid exophytic nodule extending into the endometrial canal with a possible vascular stalk. Endometrial or uterine fibroid. No definite cervical mass. No ovaries seen, no adnexal masses. HOSPITAL COURSE: The patient was admitted for less than 24 hours. She is a 61- year-old female who was admitted for dizziness and fatigue in April of this last year. She was found to have severe anemia, transfused. She was found to have possible 2 sources of loss of blood, which is either uterus or GI tract. She did have an EGD with that admission. After discharge, she had continued followup with regard to a possible nasopharyngeal mass that was bleeding and MRI shows no nasopharyngeal mass in the outpatient setting. She was referred to Gynecology because she had an abnormal ultrasound with her previous admission. She did not follow through because of cost purposes. She also is adamant that she wants to see [facility] in [place]. She now returns with syncope, recurrence of her anemia to 5.9 grams of hemoglobin. The patient was placed in observation for possible GI bleeds and stool was fecal occult blood positive in the emergency room. After reevaluation, her uterine abnormalities are noted to be even worse than before. Hemoglobin is now 10.2 after transfusion. I have explained to her in no uncertain terms that we could be looking at a neoplasm. With her not seeking followup with [facility] in [place], she could be missing the chance for treatment and diagnosis and care. While there is a possibility of lower GI bleeding and she will need a colonoscopy as well, I have strongly recommended she follow up with Gynecology for a pelvic exam and probable hysterectomy. At the time of discharge I do not know if I was able to convince the patient to do this, but I did discuss the case with Dr. Gay. PHYSICAL EXAMINATION VITAL SIGNS: At discharge, temperature was 36.7, pulse 86, respirations 22. GENERAL: She is short statured, elderly woman, who looks much older than stated age with pursed lip breathing from her COPD. She states she was taught to breath this way to help with sob. LUNGS: Prolonged end exhalation phase. HEART: She had a regular rate and rhythm with a harsh systolic murmur. ABDOMEN: Soft, nontender, and I did not feel organomegaly. She had normal bowel sounds. EXTREMITIES: She had mild rubor of her feet, but no true cyanosis. NEUROLOGIC: She is ambulating in the room without assistance. She had eaten her breakfast this morning. Again, strongly encouraged to follow up with Dr. Gay, Gynecology referral, and General Surgery referral for colonoscopy. TD: 08/11/2017 06:10 ISRA
== END 2017-08-09 10:30 | disposition home or self-care (01) ==
LOC: EDUNIT# → ED 20:30 → OBS 23:08
PROVIDERS: ADMIT Specialist; ATTEND Specialist
DX: I95.1 Orthostatic hypotension (principal); D62 Acute posthemorrhagic anemia; J44.9 Chronic obstructive pulmonary disease, unspecified; R10.13 Epigastric pain; F17.210 Nicotine dependence, cigarettes, uncomplicated; R93.8 Abnormal findings on diagnostic imaging of other specified body structures; I51.81 Takotsubo syndrome; I10 Essential (primary) hypertension; E78.5 Hyperlipidemia, unspecified; I48.91 Unspecified atrial fibrillation; F41.9 Anxiety disorder, unspecified; Z79.51 Long term (current) use of inhaled steroids; Z79.899 Other long term (current) drug therapy; Z66 Do not resuscitate
CPT/HCPCS: 36415; 36430; 71045; 76700; 76830; 76856; 80053; 81001; 83605; 83690; 83880; 84484; 85025; 86850; 86900; 86901; 86920; 87040; 93005; 94640; 94664; 96361; 96374; 96376; 99285; 99291; A9270; G0378; J7613; P9016; 81003; 87086

== ENCOUNTER 2017-10-03 12:38 | Outpatient (CLI) | payer OTHER | END 2017-10-03 12:39 | disposition critical access hospital (66) | LOC: EDSEX → EMS 12:38 | PROVIDERS: ATTEND Surgery | DX: R10.9 Unspecified abdominal pain (principal); R11.2 Nausea with vomiting, unspecified | CPT/HCPCS: A0425; A0427 ==

== ENCOUNTER 2017-10-03 12:56 | Inpatient (IN) | payer OTHER ==
[2017-10-03] MEDS ORDERED: HYDROmorphone 1 MG/ML CARPUJECT IVP STA (13:07)
--- NOTE | 2017-10-03 13:11 | ED Physician Documentation ---
PD HPI ABD PAIN - Stated complaint Stated Complaint: ABD PX - Chief complaint Chief Complaint: Abd Pain - History obtained from History obtained from: Patient, EMS - History of Present Illness Timing - onset: Other (This is a 61-year-old woman with history of emphysema, anemia. She also has a remote history of [place] cardiomyopathy. She was admitted here in July and was found to be very anemic. A pelvic ultrasound at that time was concerning for cervical or endometrial cancer. She is not the best historian but sounds like she followed up with a design sales consultant locally who may have done an endometrial biopsy, potentially positive and then was referred to a gynecology oncology physician in [place] who did an exam on her about the second of this month and she was told she did not have cancer at that time. A few days later she started developed vaginal discharge with bleeding, and that was persistent. She called the office but did not want to go down there. The bleeding stopped 2 days ago and now just has nonbloody vaginal discharge but starting 2 days ago she developed abdominal pain that started in the left lower quadrant and then radiated throughout the abdomen associated with vomiting and lack of bowel movements or flatus. She also has a history of perforated appendicitis with laparotomy a few years ago, she has never had a bowel obstruction.) Review of Systems Ten Systems: 10 systems reviewed and negative Constitutional: reports: Fatigue. denies: Fever, Chills Cardiac: denies: Chest pain / pressure, Palpitations Respiratory: denies: Dyspnea, Cough GI: reports: Abdominal Pain, Nausea, Vomiting, Constipation. denies: Hematemesis, Bloody / black stool : denies: Dysuria, Frequency PD PAST MEDICAL HISTORY - Past Medical History Cardiovascular: Hypertension, Atrial fibrillation Respiratory: COPD Neuro: None Endocrine/Autoimmune: None GI: Other (Ruptured appendicitis ) : None HEENT: None Psych: Anxiety Musculoskeletal: None Derm: None - Past Surgical History Past Surgical History: No General: Appendectomy - Present Medications Home Medications: Ambulatory Orders Medication Instructions Recorded Confirmed Ipratropium/Albuterol [Combivent 1 puffs INH QID 03/18/17 10/03/17 Respimat] hydroCHLOROthiazide [Hydrodiuril] 12.5 mg PO DAILY 03/18/17 08/09/17 Albuterol 2.5 mg INH Q4H PRN 04/18/17 08/08/17 Carvedilol 12.5 mg PO BID 04/18/17 10/03/17 Pantoprazole [Protonix] 40 mg PO DAILY #30 tablet 04/20/17 08/08/17 Fluticasone/Salmeterol [Advair 1 puffs INH BID 08/09/17 08/09/17 250-50 Diskus] Ipratropium/Albuterol [Duoneb] 3 ml INH BID PRN 08/09/17 10/03/17 raNITIdine [Zantac] 150 mg PO QPM 08/09/17 08/09/17 Lisinopril [Lisinopril] 40 mg PO DAILY 10/03/17 10/03/17 - Allergies Allergies/Adverse Reactions: Allergies Allergy/AdvReac Type Severity Reaction Status Date / Time No Known Drug Allergies Allergy Verified 08/08/17 20:39 - Social History Does the pt smoke?: No Smoking Status: Former smoker Does the pt drink ETOH?: No Does the pt have substance abuse?: No - Family History Family history: reports: Non contributory - Immunizations Immunizations are current?: Yes - POLST Patient has POLST: No POLST Status: Full Code PD ED PE NORMAL - Vitals Vital signs reviewed: Yes - General General: Alert and oriented X 3, Other (She appears to be in pain and uncomfortable.) - HEENT HEENT: PERRL, EOMI - Neck Neck: Supple, no meningeal sign, No bony TTP - Cardiac Cardiac: RRR, No murmur - Respiratory Respiratory: No respiratory distress, Clear bilaterally - Abdomen Abdomen: Other (Abdomen is slightly distended, she has diminished high-pitched bowel tones and significant diffuse tenderness.) - Back Back: No CVA TTP, No spinal TTP - Derm Derm: Normal color, Warm and dry - Extremities Extremities: No edema, No calf tenderness / cord - Neuro Neuro: Alert and oriented X 3 Eye Opening: Spontaneous Motor: Obeys Commands Verbal: Oriented GCS Score: 15 - Psych Psych: Normal mood, Normal affect Results - Vitals Vitals: Vital Signs - 24 hr 10/03/17 10/03/17 10/03/17 13:00 14:46 14:58 Temperature 37.5 C Heart Rate 53 L 90 97 Respiratory 16 16 Rate Blood Pressure 138/92 H 135/94 H 135/94 H O2 Saturation 90 L 97 99 04/18/18 04/18/18 04/18/18 16:19 17:38 20:50 Temperature Heart Rate 91 94 Respiratory 26 H 19 Rate Blood Pressure 131/88 H 119/84 H O2 Saturation 98 94 100 Oxygen O2 Source Nasal cannula - EKG (time done) 1314 Rate: Rate (enter#) (101) Rhythm: NSR (with PACs) [place]: Normal Intervals: Normal CT QRS: Normal Ischemia: Non specific changes (Diffuse T-wave flattening) Computer interpretation: Agree with computer - Labs Labs: Laboratory Tests 10/03/17 10/03/17 10/03/17 13:20 13:20 13:20 WBC 15.8 H RBC 4.77 Hgb 12.0 Hct 37.5 MCV 78.5 L MCH 25.2 L MCHC 32.1 RDW 22.5 H Plt Count 466 H MPV 6.9 L Neut # 12.8 H Lymph # 1.8 White # 1.0 Eos # 0.0 Baso # 0.2 H Absolute Nucleated RBC 0.00 Nucleated RBC % 0.0 Manual Slide Review Indicated Platelet Estimate INCREASED (>450,000) Platelet Morphology NORMAL APPEARANCE RBC Morph Micro Appear 1+ TARGET CELLS Sodium 132 L Potassium 4.2 Chloride 94 L Carbon Dioxide 29 Anion Gap 9.0 BUN 24 H Creatinine 0.6 Estimated GFR (MDRD) 101 Glucose 110 H Lactic Acid 1.2 Calcium 8.9 Magnesium 1.6 L Total Bilirubin 1.0 AST 13 ALT < 10 L Alkaline Phosphatase 81 Total Protein 6.8 Albumin 3.4 Globulin 3.4 Albumin/Globulin Ratio 1.0 Lipase 16 L - Rads (name of study) Ct A/P Radiology: EMP read contemporaneously (1. CT findings consistent with small bowel obstruction. Maximal small bowel diameter is 4.5 cm. Transition point to decompressed bowel is at the patient's left inguinal hernia, into which a short segment of small bowel protrudes. Distal small bowel is decompressed. 2. Interval increase in size of cystic mass within the pelvis, now measuring 9.8 x 11.6 cm, as compared to 5.3 x 5.6 cm on the previous examination. There is heterogeneous density of the lower uterine segment. Findings could be secondary to obstructing endometrial or cervical cancer. 3. Small-moderate volume free fluid within the pelvis and right upper quadrant may be secondary to the bowel inflammation. 4. There is distal colon diverticulosis without evidence of diverticulitis. ) PD MEDICAL DECISION MAKING - ED course ED course: 61-year-old woman presents with signs and symptoms concerning for small bowel obstruction. This is proven on CT with left inguinal hernia that is incarcerated as the cause and also free fluid in the pelvic mass. Spoke with the on-call surgeon, Dr. Borja at 3:50 PM and he will be in to see the patient and likely take her to the OR. Departure - Departure Disposition: ED Transfer to [facility] Clinical Impression: Small bowel obstruction, Left inguinal hernia, Pelvic mass Condition: Serious Discharge Date/Time: 10/03/17 18:07
[2017-10-03] MEDS ORDERED: IOPAMIDOL-300 100 ML VIAL ONE (13:26)
[2017-10-03] MEDS ORDERED: IOPAMIDOL-300 50 ML VIAL ONE (13:26)
[2017-10-03 13:29] LABS: BASOPHILS # (AUTO) 0.2 10^3/uL (0.0-0.1); BASOPHILS % (AUTO) 1.1 %; EOSINOPHILS % (AUTO) 0.1 %; LYMPHOCYTES # (AUTO) 1.8 10^3/uL (1.5-3.5); LYMPHOCYTES % (AUTO) 11.3 %; MEAN CORPUSCULAR HEMOGLOBIN 25.2 pg (27.0-31.0); MEAN CORPUSCULAR HGB CONC 32.1 g/dL (32.0-36.0); MEAN CORPUSCULAR VOLUME 78.5 fL (81.0-99.0); MEAN PLATELET VOLUME 6.9 fL (7.9-10.8); MONOCYTES % (AUTO) 6.5 %; NEUTROPHILS # (AUTO) 12.8 10^3/uL (1.5-6.6); PLT - PLATELET COUNT 466 10^3/uL (130-450); RED BLOOD COUNT 4.77 10^6/uL (4.20-5.40); RED CELL DISTRIBUTION WIDTH 22.5 % (12.0-15.0); WHITE BLOOD COUNT 15.8 x10^3/uL (4.8-10.8)
--- NOTE | 2017-10-03 13:32 | XRAY Preliminary Report ---
Exam: XR CHEST 1 VIEW X-RAY IMPRESSION: Chronic lung disease. [facility] SITE ID: [id number]
[2017-10-03] MEDS ORDERED: IOPAMIDOL-300 50 ML VIAL PO ONE (13:38)
[2017-10-03 13:40] LABS: ALBUMIN 3.4 g/dL (3.2-5.5); ALKALINE PHOSPHATASE 81 IU/L (42-121); ALT ALANINE AMINOTRANSFERASE < 10 IU/L (10-60); AST ASPARTATE AMINOTRANSFERASE 13 IU/L (10-42); BUN - BLOOD UREA NITROGEN 24 mg/dL (6-20); CALCIUM 8.9 mg/dL (8.5-10.3); CARBON DIOXIDE - CO2 29 mmol/L (21-32); CHLORIDE 94 mmol/L (101-111); CREATININE 0.6 mg/dL (0.4-1.0); GFR - MDRD 101 (>89); GLUCOSE 110 mg/dL (70-100); LIPASE 16 U/L (22-51); MAGNESIUM 1.6 mg/dL (1.7-2.8); SODIUM 132 mmol/L (135-145); TOTAL PROTEIN 6.8 g/dL (6.7-8.2)
--- NOTE | 2017-10-03 13:42 | XRAY Report ---
EXAM: CHEST RADIOGRAPHY EXAM DATE: 10/03/2017 01:18 PM. CLINICAL HISTORY: Abdominal pain. COMPARISON: 08/08/2017. Chest CTA 04/18/2017. TECHNIQUE: 1 view. FINDINGS: Lungs/Pleura: Scarring left lung base. Overexpanded, emphysematous changes. No focal opacities eviden t. No pleural effusion. No pneumothorax. Mediastinum: Within exam limitations, the cardiomediastinal contour is normal. Other: No subdiaphragmatic air. IMPRESSION: Chronic lung disease. [facility] Referring Provider Line: [phone] SITE ID: [id number]
[2017-10-03 13:48] LABS: PLATELET MORPHOLOGY NORMAL APPEARANCE (NORMAL)
[2017-10-03 13:49] LABS: PLATELET ESTIMATE, MANUAL INCREASED (>450,000) (NORMAL)
[2017-10-03] MEDS ORDERED: IOPAMIDOL-300 100 ML VIAL IVP ONE ×2 (15:24→15:33)
[2017-10-03] MEDS ORDERED: IOPAMIDOL-370 100 ML VIAL IVP ONE (15:24)
[2017-10-03] MEDS ORDERED: PIPERACILLIN/TAZOBACTAM 3.375 GM in SODIUM CHLORIDE 0.9% MINIBAG 100 ML IV STA (15:56)
--- NOTE | 2017-10-03 15:56 | CT Report ---
EXAM: CT ABDOMEN AND PELVIS EXAM DATE: 10/03/2017 03:31 PM. CLINICAL HISTORY: Abdominal pain COMPARISONS: 04/18/2017. TECHNIQUE: Routine helical CT imaging was performed through the abdomen and pelvis. IV contrast: 80ML ISOVUE 300. Enteric contrast: No. Reconstructions: Coronal and sagittal. In accordance with CT protocol optimization, one or more of the following dose reduction techniques w ere utilized for this exam: automated exposure control, adjustment of mA and/or KV based on patient s ize, or use of iterative reconstructive technique. FINDINGS: Lung Bases: Increased AP diameter of the chest. There is mild cardiomegaly. There is some scarring wi thin the left lung base. Liver: There are several small hypodensities within the liver which are too small to characterize. Th christine are unchanged. Gallbladder/Bile Ducts: Unremarkable. Spleen: Normal. Pancreas: Normal. Adrenal Glands: Normal. Kidneys: Normal. No masses or hydronephrosis. Peritoneal Cavity/Bowel: There is dilated lower abdomen small bowel. Maximal diameter is approximatel y 4 cm. Finds are consistent with small bowel obstruction. Likely transition point is at the patient' s left inguinal hernia, into which a short segment of small bowel protrudes. There is free fluid with in the pelvis and right upper quadrant. No intraperitoneal free air. There is distal colon diverticul osis without evidence of diverticulitis. Pelvic Organs: Interval increase in size of thick-walled cystic mass centered within the pelvis. The lesion measures 9.8 x 11.6 cm. Heterogeneous appearance to the lower uterus. Urinary bladder is unrem arkable. No enlarged pelvic lymph nodes are seen. Vasculature: There are meniscal calcifications of the aorta and branch vessels. No acute vascular abn ormalities are seen. Bones: No significant abnormality. Other: None. IMPRESSION: 1. CT findings consistent with small bowel obstruction. Maximal small bowel diameter is 4.5 cm. Trans ition point to decompressed bowel is at the patient's left inguinal hernia, into which a short segmen t of small bowel protrudes. Distal small bowel is decompressed. 2. Interval increase in size of cystic mass within the pelvis, now measuring 9.8 x 11.6 cm, as compar ed to 5.3 x 5.6 cm on the previous examination. There is heterogeneous density of the lower uterine s egment. Findings could be secondary to obstructing endometrial or cervical cancer. 3. Small-moderate volume free fluid within the pelvis and right upper quadrant may be secondary to th e bowel inflammation. 4. There is distal colon diverticulosis without evidence of diverticulitis. [facility] Referring Provider Line: [phone] SITE ID: [id number]
[2017-10-03] MEDS ORDERED: SODIUM CHLORIDE 0.9% 1,000 ML IV ONE (15:58)
[2017-10-03] MEDS ORDERED: BUPIVACAINE 0.5% PF 30 ML VIAL ONE (17:26)
--- NOTE | 2017-10-03 17:27 | CONSULTATION NOTE ---
Referring Provider Name of Referring Provider:: Dr. Ray Rizzo Consult Date: 10/03/17 Chief Complaint - Chief Complaint Chief Complaint: Abdominal pain and distention, vaginal discharge History of Present Illness - Admitted From Admitted From:: [facility] ED Room2 - History Obtained From Records Reviewed: Yes History obtained from: Patient Exam Limitations: Patient is a slightly circuitous historian - History of Present Illness HPI Comment/Other: Patient is an ill-appearing 61-year-old woman who appears much older than her stated age evaluated in room 2 at [facility] emergency department at the request of Dr. Ray Rizzo. She admits to several day history of increasing abdominal pain and discomfort. In addition her abdomen is been distended. There is no history of recent bowel movement. Associated with this is an exquisitely tender mass in her left inguinal region. She has also had vaginal discharge there was initially bloody and then turned clear. To this end she was evaluated by Dr. Cat for a uterine mass. He biopsy the uterine mass and it returned a squamous etiology. As a result Dr. Hayes understandably sent her to [facility] and the it web development consultant there states that she did not have cancer. The mass now on CT scan is grown to 4 times the size. Initially it was 5 x 5 cm and now it is approximately 10 x 10 cm. Volumetrically it is 4 times the size. History - Past Medical History Cardiovascular: reports: Hypertension, Atrial fibrillation Respiratory: reports: COPD Neuro: reports: None Endocrine/Autoimmune: reports: None GI: reports: Other (Ruptured appendicitis ) : reports: None HEENT: reports: None Psych: reports: Anxiety Musculoskeletal: reports: None Derm: reports: None MRSA Hx?: No - Past Surgical History General: reports: Appendectomy - Family & Social History Social History Notes: Patient was born in [place] and moved would [facility] at the age of 5. She was but is now . She has 3 children none of whom live on [facility] [facility]. 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 She is a longtime smoker started smoking at the age of 17 says that she quit 2 weeks ago. She previously smoked a pack a day but cut down to half a pack a day for the last year. The patient has tried to quit multiple times over the past year. She does not drink alcohol and has never used any illicit drugs. - POLST Patient has POLST: No POLST Status: Full Code Meds/Allgy - Home Medications Home Medications: Ambulatory Orders Medication Instructions Recorded Confirmed Ipratropium/Albuterol [Combivent 1 puffs INH QID 03/18/17 10/03/17 Respimat] hydroCHLOROthiazide [Hydrodiuril] 12.5 mg PO DAILY 03/18/17 08/09/17 Albuterol 2.5 mg INH Q4H PRN 04/18/17 08/08/17 Carvedilol 12.5 mg PO BID 04/18/17 10/03/17 Pantoprazole [Protonix] 40 mg PO DAILY #30 tablet 04/20/17 08/08/17 Fluticasone/Salmeterol [Advair 1 puffs INH BID 08/09/17 08/09/17 250-50 Diskus] Ipratropium/Albuterol [Duoneb] 3 ml INH BID PRN 08/09/17 10/03/17 raNITIdine [Zantac] 150 mg PO QPM 08/09/17 08/09/17 Lisinopril [Lisinopril] 40 mg PO DAILY 10/03/17 10/03/17 - Allergies Allergies/Adverse Reactions: Allergies Allergy/AdvReac Type Severity Reaction Status Date / Time No Known Drug Allergies Allergy Verified 08/08/17 20:39 Review of Systems - Eyes Eyes: denies: Amaurosis, Spots in vision - Ears, Nose & Throat Ears, Nose & Throat: denies: Nosebleeds, Mouth lesions - Respiratory Respiratory: denies: Sputum production, Hemoptysis - Gastrointestinal Gastrointestinal: reports: Abdominal pain, Change in bowel habits, Nausea. denies: Constipation, Diarrhea, Black stools, Bloody stools, Sabino blood emesis , Coffee grounds emesis - Genitourinary Genitourinary: denies: Dysuria - Integumentary Integumentary: denies: Rash - Neurological Neurological: reports: General weakness. denies: Focal weakness - Psychiatric Psychiatric: denies: Depression, Anxiety Exam - Vital Signs Reviewed Vital Signs: Yes Vital Signs: Vital Signs x48h Temp Pulse Resp BP Pulse Ox 10/03/17 16:19 91 26 H 131/88 H 98 10/03/17 14:58 97 16 135/94 H 99 10/03/17 14:46 90 135/94 H 97 10/03/17 13:00 37.5 C 53 L 16 138/92 H 90 L - Physical Exam General Appearance: positive: Mild distress, Anxious Eyes Bilateral: positive: No lid inflammation, Conjunctivae nml, No scleral icterus ENT: positive: Dry mucous membranes Neck: positive: Trachea midline Respiratory: positive: Chest non-tender, Breath sounds nml Cardiovascular: positive: Tachycardia Abdomen: positive: Tenderness, Rebound, Abnml bowel sounds (High pitched bowel sound.), Other (Tympanic. Non-reducible mass in LEFT inguinal canal.) Skin: positive: Color nml Neurologic/Psychiatric: positive: Oriented x3 Conclusion/Plan - Diagnosis Diagnosis: Small bowel obstruction secondary to incarcerated LEFT inguinal hernia, enlarging uterine mass - Plan Plan: Exploratory laparotomy with reduction of incarcerated left inguinal hernia and left inguinal herniorrhaphy, possible small bowel resection, possible hysterectomy, possible salpingo-oophorectomy. Dr. Hayes has been made aware and his services will likely be required in order to perform this hysterectomy and possible salpingo-oophorectomy. Regardless of the final pathology of the uterus and needs to be removed because it is rapidly enlarging in size and causing her symptoms. I have a strong suspicion that the cause of her uterine enlargement is going to be malignant. But again, excision is warranted and indicated. With regards to her incarcerated inguinal hernia obviously the bowel will be evaluated for viability in patency. If the bowel is found not to be viable than a small bowel resection will be indicated. Prophylactic antibiotics have been ordered. Peripheral active teds and Venodyne 's have been ordered. I will follow her postoperatively. An intraoperative consultation for Dr. Hayes may be necessary depending on the findings and and postoperative consultation to my hospitalist colleagues may be necessary depending on her medical issues and medications. Regarding whether not this patient will stay in the hospital 96 hours or greater will be entirely dependent on the operative findings as well as the patient's compliance with postoperative instructions. Dragon disclaimer: This document was created in part using voice recognition technology. Because of the inherent limitations of the system ([employer]'s Context appate user manual states that the licensee understands that speech recognition is a statistical process and that recognition errors are inherent in the process), occasional same sounding word substitutions and grammatical errors do occur and persist despite proofreading. Please read this document for context. - Lab Results Lab results reviewed: Yes Fish Bones: 10/03/17 13:20 10/03/17 13:20 - Diagnostic Imaging Results Diagnostic Imaging Results: positive: Prelim report reviewed, Read independently - EKG Results EKG Interpreted Independently: Yes EKG Comparison: Unchanged from prior EKG
[2017-10-03] MEDS ORDERED: SODIUM CHLORIDE 0.9% 100 ML IV ONE (17:47)
[2017-10-03] MEDS ORDERED: LACTATED RINGERS 1,000 ML IV ONE ×3 (18:03→20:06)
[2017-10-03] MEDS ORDERED: MIDAZOLAM 2 MG/2 ML VIAL IVP ONE (18:30)
[2017-10-03] MEDS ORDERED: GLYCOPYRROLATE 1 MG/5 ML VIAL IVP ONE (18:30)
[2017-10-03] MEDS ORDERED: SUCCINYLCHOLINE 200 MG/10 ML VIAL IVP ONE (18:30)
[2017-10-03] MEDS ORDERED: PHENYLEPHRINE 50 MG/5 ML VIAL IV ONE (18:30)
[2017-10-03] MEDS ORDERED: LIDOCAINE-MPF 2% 5 ML VIAL IM ONE (18:30)
[2017-10-03] MEDS ORDERED: ONDANSETRON 4 MG/2 ML VIAL IVP ONE (18:30)
[2017-10-03] MEDS ORDERED: PROPOFOL 200 MG/20 ML VIAL IVP ONE (18:30)
[2017-10-03] MEDS ORDERED: ePHEDrine 50 MG/ML VIAL IVP ONE (18:30)
[2017-10-03] MEDS ORDERED: NEOSTIGMINE 1 MG/1 ML 10 ML MDV IVP ONE (18:30)
[2017-10-03] MEDS ORDERED: fentaNYL 100 MCG/2 ML VIAL IVP ONE (18:30)
[2017-10-03] MEDS ORDERED: BUPIVACAINE 0.5% PF 30 ML VIAL SUBQ ONE (18:36)
[2017-10-03] MEDS: HYDROmorphone 1 MG/ML CARPUJECT ONE ×6 (20:55→21:35)
--- NOTE | 2017-10-03 20:58 | OPERATIVE REPORT ---
Operative Report - General Procedure Date: 10/03/17 Planned Procedure: Exploratory laparotomy with reduction of incarcerated LEFT inguinal hernia Pre-Op Diagnosis: Incarcerated LEFt inguinal hernia resulting in bowel obstruction, enlarged Procedure Performed: Exploratory laparotomy (Hassapis) Reduction of LEFT inguinal Rocha's hernia and repair hernia defect (Hassapis) Liver biopsy (Hassapis) Intra-operative consultation to Dr. Hayes (Jonh) GIFTY-BSO for pyometrium (Freddy) Aerobic and anaerobic cultures (Freddy) Placement of drain (Hassapis) Post Op Diagnosis: Incarcerated LEFT inguinal Rocha's hernia, pyometrium - Procedure Note Primary Surgeon: Gordon Borja MD (co-surgeon) Greg Haeys MD (co-surgeon) append -62 Anesthesia Provider: Adelfo Crain CRNA Anesthesia Technique: General ET tube IV Fluids (mL): 2,800 Estimated Blood Loss (mL): 800 Urine Output (mL): 400 Drain/Tube Type: Pranay drain (19 Fr Pranay in the pelvis) Complications: None. - Other Other Information/Narrative: OPERATIVE DESCRIPTION/REPORT: After verbal and written informed consent was obtained detailing the risks of infection, bleeding requiring transfusion with its risks, nerve injury, and , and after I met with the patient confirming the surgery and the site of the surgery, the patient was brought to the operative suite and placed supine on the operating table. Great care was taken to avoid pressure points to prevent pressure necrosis or nerve injury. Monitoring devices were applied along with TEDs and pneumatic compressive stockings (to prevent DVT). The patient received preoperative antibiotics for surgical prophylaxis. Adelfo Crain sedated and anesthetized the patient for the entire procedure. The patient was prepped and draped in the usual sterile manner. With the patient draped my initials were clearly visible. A "time in" then confirmed that the patient was identified with 3 identifiers (name, date and medical record number), the history and physical was in the chart, the signed consent confirming the procedure was in the chart, the patient was in the correct position, the aforementioned prophylactic measures were in place or given, we had the correct personnel and equipment to complete the procedure and that anesthesia, surgery and nursing were given an opportunuty to express any concerns. With the agreement of everyone in the room, we proceeded with the operation. I incised the skin at the midline tracing the previous incision and taking the incision down to the peritoneum using a combination of scalpel as well as Bovie electrocautery. The peritoneum was incised using a scalpel getting entry into the abdomen without incident. There was a copious amount of serous abdominal fluid. The fascial incision was then taken to the length of my skin incision using Bovie electrocautery taking care to protect the bowel with my hand. It was clear once I was in the abdomen that there was dilated proximal bowel and decompressed distal bowel. Additionally there was a 10 x 10 cm very large boggy uterus. This uterus was clearly abnormal and needed to be removed. Dr. Toledo was called and was kind enough to come in and intraoperatively see that the uterus needed to be removed. Please note that Dr. Toledo had been involved in her care prior to this visit in the emergency department. Additional examination revealed that the dilated small bowel went down into the left pelvis where was involved in a very small tight hernia defect and the bowel coming out of that hernia defect was decompressed. Rather than pull on the bowel and risk injuring the bowel, I made a counter-incision in the left groin taking the dissection down to the hernia defect and a dark discolored hernia sac. Using both incisions and a push-pull technique I was able to reduce the hernia and noted that this was a Rocha's hernia. The bowel initially looked somewhat dusky but as soon as it was reduced it was clear that it was viable. At this point the case was turned over to Dr. Toledo in order to perform the total abdominal hysterectomy and bilateral salpingo-oophorectomy. This will be dictated or recorded separately by him. I will state that the quantity of purulence and the associated smell that came out of this woman's uterus was stunning. Aerobic and anaerobic cultures were sent. Once the uterus and subsequent right and left ovary and tubes were removed, the left and right ureter positively identified, and all bleeding stopped the case was then turned back over to me. Due to the sheer quantity of purulence that was involved in this case I decided not to place mesh in her hernia defect. Instead, I closed the intra-abdominal portion and the inguinal portion separately with 2-0 Prolene sutures. I ensured that the nasogastric tube was present in the stomach and manual examination of her liver revealed numerous hard/firm lesions which upon visual examination or hemangiomas as well as several white-prasanth lesions. It is 1 of these lesions that I biopsied with the application of a Rongeur and obtained hemostasis with the application of Bovie electrocautery. Again, due this year amount of purulence that was involved in this case I placed a 19 Portuguese Pranay drain in the right lower quadrant and secured to the skin with a 3-0 nylon which was Mo sandaled about the drain. The drain was placed into the pelvis and up where the uterus had been. The abdomen was copiously irrigated with warm sterile saline. The fascia at the midline was approximated using a running looped 0 PDS starting superiorly and inferiorly and running to tie it just below the midpoint of the incision. The knot was dunked. The subcutaneous tissues were copiously irrigated and the skin was approximated using skin savi. In a similar manner the skin was closed in the left inguinal region. A dressing was placed on the wound. All surgical counts were reported as correct. A dressing was then applied. At this point a time out was performed that confirmed that all the counts were correct, the procedure that was performed, the blood loss, the IV fluids administered, and the patients condition. Having tolerated the procedure well, the patient was subsequently extubated and taken to recovery room in good and stable condition. There is no question that we served as co-surgeons and a modifier -62 should be appended.
[2017-10-03] MEDS ORDERED: METOCLOPRAMIDE 10 MG/2 ML VIAL IVP PRN (21:32)
[2017-10-03] MEDS ORDERED: ONDANSETRON 4 MG/2 ML VIAL IVP PRN (21:32)
[2017-10-03] MEDS ORDERED: BENZOCAINE/TETRACAINE/BUTAMBEN 20 GM MM PRN (21:32)
[2017-10-03] MEDS ORDERED: PHENOL THROAT SPRAY 177 ML MM PRN (21:32)
[2017-10-03] MEDS ORDERED: ERTAPENEM 1 GM in SODIUM CHLORIDE 0.9% MINIBAG 100 ML IV SCH (22:00)
[2017-10-03] MEDS ORDERED: D5NS W/20 MEQ KCL 1,000 ML IV SCH (22:00)
[2017-10-03] MEDS ORDERED: ACETAMINOPHEN 1,000 MG/100 ML 100 ML IV SCH (22:00)
[2017-10-03] MEDS: HYDROmorphone 1 MG/ML CARPUJECT IVP PRN ×2 (22:40→23:42)
--- NOTE | 2017-10-03 23:46 | XRAY Report ---
EXAM: CHEST RADIOGRAPHY EXAM DATE: 10/03/2017 11:23 PM. CLINICAL HISTORY: NGT placement. COMPARISON: Today at 1307. TECHNIQUE: 1 view. FINDINGS: Lungs/Pleura: Stable scarring/atelectasis in the lower left lung, otherwise no focal opacities eviden t. No pleural effusion. No pneumothorax. Mediastinum: Stable mild cardiomegaly. Other: NG tube coiled in the upper stomach with tip in stomach. IMPRESSION: NG tube to the distal stomach. [facility] Referring Provider Line: [phone] SITE ID: [id number]
--- NOTE | 2017-10-03 23:47 | OPERATIVE REPORT ---
DATE OF SERVICE: 10/03/2017 Physician: Greg Hayes MD PREOPERATIVE DIAGNOSES 1. Incarcerated hernia. 2. Enlarged uterus. 3. 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 POSTOPERATIVE DIAGNOSES 1. Rocha's hernia. 2. Pyometrium. 3. Uterine pathology pending. NAME OF PROCEDURE: Hysterectomy SURGEON: Greg Hayes MD CO-SURGEON: Gordon Borja MD ANESTHESIA: General via endotracheal tube with CNRA Adelfo Crain. ESTIMATED BLOOD LOSS: 800 mL IV FLUIDS: 2800 mL URINE OUTPUT: 400 mL FINDINGS: Upon entering the abdominal cavity, there was evidence of a Rocha hernia as well as a hernia in the left inguinal area. The uterus was markedly enlarged and was roughly 15-20 cm in size. The ovaries appeared to be free of disease. This operation was done with co-surgeon, Dr. Borja, who will dictate the entry, the hernia repair, as well as the Rocha hernia portion. HYSTERECTOMY: Following opening the patient, reduction of the Rocha hernia and identification of the left inguinal hernia, the hysterectomy was commenced. The right fallopian tube and ovary were grasped with Pean, then back grasped with Pean and then divided with Riggins scissors. This was ligated on both sides with 0 Vicryl in a Anshu stitch. Because of the bulk and the size of the uterus and difficulty with visualization, the uterus was rolled to the patient's left, and then the round ligament on the right-hand side was cross clamped with a Anshu clamp and then back clamped with a Pean. This was then doubly ligated on both sides with Anshu stitch of 0 Vicryl. The anterior leaf of the broad ligament was opened, carried down to the margin of the uterus and then traversed the lower uterine segment to dissect the bladder off the cervix and lower uterine segment. An additional LigaSure clamp was then placed on the right-hand side. Care was taken to place this as close to the uterus as possible to minimize any injury to the ureter. This was then cauterized twice and then cut. At this point, this was carried down to the cervix. Care was taken to try and stay as close to the uterus as possible to minimize any risk to the ureter and as well as peritoneal wall. The ureter was identified on the right-hand side and noted to flow free of the incision site. The contralateral side was treated in identical fashion. The round ligament, the uteroovarian ligament, as well as the fallopian tube were cross clamped with Anshu clamp, back clamped with Anshu clamp, divided with Riggins scissors, and then ligated on both sides with Anshu stitches of 0 Vicryl. The anterior leaf of the broad ligament was then opened and then carried down to the bladder flap. The posterior leaf of the broad ligament was also opened. Care was taken to stay as close to the uterus as possible to decrease risk of injury to the ureter on that side also. LigaSures were then used to carry down all the way to the internal os of the cervix. These were cauterized doubly and then transected. The bladder was bluntly dissected off the lower uterine segment and cervix until the upper portion of the vagina was encountered. At this point, the posterior peritoneum over the posterior uterus was opened with Metzenbaums to try and allow the ureter to fall away out of the operative field. The ureter was identified on the left-hand side to try and minimize its risk of injury. This was somewhat difficult to accomplish because of the uterine size. With good retraction from the urology physician assistant , visualization was able to be accomplished. At this point, with the lower portion of the cervix exposed, it was entered using a #10 blade. A very foul odor was encountered at this time. This was noted to be pus that was coming out of the cervix. The uterus was then amputated from the apical vagina with Metzenbaum scissors. The apex of the vagina were grasped with Destini's to suspend this. There was a bleeder on the left-hand side, which was treated with a figure -of-eight of 0 Vicryl. This appeared to be ascending branch from the cervix. Corner sutures were placed on both sides with 0 Vicryl starting from inside the vagina going to from the outside to the inside and then from the inside to the outside picking up the transverse cervical ligament and then anteriorly including going from the outside to the inside and then inside to the outside. These were then tied snug. There was evidence of good hemostasis on both cuffs. The cuff of the vagina was then closed utilizing [id number] of 0 Vicryl. This was carried all the way across. This was observed for hemostasis. Good hemostasis was observed. There was evidence on the right-hand side where it appeared to be one of the spiral arteries had some bleeding. This was treated with the LigaSure. Once again, care was taken to try to avoid any injury to the ureters. The pelvic peritoneum was then opened on both sides to follow the ureters as they course from the brim of the pelvis down to the bladder. Patient was having good yellow urine output at this time, so it was decided to at this point remove the ovaries bilaterally. The infundibulopelvic ligament on the right side was cross clamped with the LigaSure, doubly cauterized, and then transected. An additional application was then utilized on the right side and the ovary tube were extirpated. The infundibulopelvic ligament was inspected for bleeding, none was noted. The left tube and ovary were treated in a similar fashion. The infundibulopelvic ligament was cauterized and transected with the LigaSure and this was carried across the remainder of the ovarian attachments. These were sent separately. At this point the pelvic sidewalls were carefully inspected for bleeding. None was noted. This was irrigated with copious amounts of sterile saline. Care was taken to assure that once again the ureters were free of obstruction. At this point, the remainder of the procedure was completed by Dr. Borja with Dr. Hayes's assistance. His dictation will appear separately. When the uterus was opened in the back field, a large amount of very foul smelling purulent pus was noted to come from the cervix. For this reason, it was decided not to open the uterus and allow this to be sent in to the pathologist. Patient tolerated the procedure well and was taken to recovery in stable condition. Sponge and needle counts were correct. TD: 10/03/2017 23:46 ISRA
[2017-10-03] MEDS: SODIUM CHLORIDE FLUSH 0.9% 10 ML SYRINGE IVP PRN (23:48)
[2017-10-04] MEDS: SODIUM CHLORIDE FLUSH 0.9% 10 ML SYRINGE IVP SCH ×3 (00:02→17:26)
[2017-10-04] MEDS ORDERED: SODIUM CHLORIDE 0.9% 1,000 ML IV ONE (01:29)
[2017-10-04] MEDS ORDERED: PROCHLORPERAZINE 10 MG/2 ML VIAL IVP PRN (01:52)
[2017-10-04] MEDS ORDERED: PROCHLORPERAZINE 5 MG TABLET PO PRN (01:52)
[2017-10-04] MEDS: HYDROmorphone 1 MG/ML CARPUJECT IVP PRN ×3 (03:01→07:56)
[2017-10-04] MEDS: BENZOCAINE/MENTHOL LOZENGE MM PRN ×2 (03:46→07:05)
[2017-10-04 04:51] LABS: BASOPHILS % (AUTO) 0.1 %; HGB - HEMOGLOBIN 9.5 g/dL (12.0-16.0); LYMPHOCYTES # (AUTO) 0.8 10^3/uL (1.5-3.5); LYMPHOCYTES % (AUTO) 4.1 %; MEAN CORPUSCULAR HEMOGLOBIN 24.4 pg (27.0-31.0); MEAN CORPUSCULAR HGB CONC 29.8 g/dL (32.0-36.0); MEAN PLATELET VOLUME 7.4 fL (7.9-10.8); MONOCYTES # (AUTO) 0.9 10^3/uL (0.0-1.0); MONOCYTES % (AUTO) 4.2 %; NEUTROPHILS # (AUTO) 18.9 10^3/uL (1.5-6.6); NEUTROPHILS % (AUTO) 91.6 %; PLT - PLATELET COUNT 401 10^3/uL (130-450); RED BLOOD COUNT 3.89 10^6/uL (4.20-5.40); RED CELL DISTRIBUTION WIDTH 22.6 % (12.0-15.0); WHITE BLOOD COUNT 20.7 x10^3/uL (4.8-10.8)
[2017-10-04 05:02] LABS: ALBUMIN 2.3 g/dL (3.2-5.5); ALKALINE PHOSPHATASE 47 IU/L (42-121); ALT ALANINE AMINOTRANSFERASE < 10 IU/L (10-60); AST ASPARTATE AMINOTRANSFERASE 15 IU/L (10-42); BILIRUBIN,TOTAL 0.5 mg/dL (0.2-1.0); BUN - BLOOD UREA NITROGEN 21 mg/dL (6-20); CALCIUM 7.4 mg/dL (8.5-10.3); CARBON DIOXIDE - CO2 27 mmol/L (21-32); CHLORIDE 101 mmol/L (101-111); CREATININE 0.6 mg/dL (0.4-1.0); GFR - MDRD 101 (>89); GLUCOSE 165 mg/dL (70-100); SODIUM 135 mmol/L (135-145); TOTAL PROTEIN 4.5 g/dL (6.7-8.2)
[2017-10-04 06:06] LABS: PLATELET MORPHOLOGY NORMAL APPEARANCE (NORMAL)
[2017-10-04 06:07] LABS: PLATELET ESTIMATE, MANUAL NORMAL (130-450,000) (NORMAL)
[2017-10-04] MEDS: D5NS W/20 MEQ KCL 1,000 ML IV SCH ×3 (06:30→19:36)
[2017-10-04] MEDS: SODIUM CHLORIDE FLUSH 0.9% 10 ML SYRINGE IVP PRN (07:06)
[2017-10-04] MEDS: PANTOPRAZOLE 40 MG VIAL IVP SCH (07:06)
[2017-10-04] MEDS: ACETAMINOPHEN 1,000 MG/100 ML 100 ML IV SCH ×3 (08:00→19:28)
[2017-10-04] MEDS: ENOXAPARIN 40 MG/0.4 ML SYRINGE SUBQ SCH (08:01)
[2017-10-04] MEDS ORDERED: HYDROmorphone 0.5 MG/0.5 ML SYRINGE IVP PRN (08:46)
--- NOTE | 2017-10-04 10:53 | PROVIDER PROGRESS NOTE ---
Subjective - General Admit Date: 10/03/17 Procedure Date: 10/03/17 Post Op Days: 1 Procedure Performed: Exp lap with reduction Rocha hernia, repair hernia, GIFTY& BSO, drain, liver - Review of Systems Wound/Incisions: positive: Dressing dry and intact Drain Type: 19 Fr Pranay Drain Output Description: serosanguinous Approximate mls Output: 200 mL General: positive: No symptoms HEENT: positive: No symptoms Pulmonary: positive: Cough, Sputum, Wheezing Gastrointestinal: positive: No symptoms Genitourinary: positive: No symptoms (Macias in place.) Musculoskeletal: positive: No symptoms Skin: positive: No symptoms Psychiatric: positive: No symptoms Objective - Patient Data Reviewed Vital Signs: Yes Vital Signs: Vital Signs x48h Temp Pulse Resp BP Pulse Ox 10/04/17 07:51 36.4 C L 83 17 98/61 99 10/04/17 03:00 36.4 C L 89 16 90/64 100 Weight: Weight 10/02/17 10/03/17 10/04/17 23:59 23:59 23:59 Weight (kg) 53.977 kg Intake & Output: Intake and Output Totals x24h 10/02/17 10/03/17 10/04/17 23:59 23:59 23:59 Intake Total 1100 2446.66 Output Total 400 Balance 1100 2046.66 - Lab Results Lab Results: 10/04/17 04:13 10/04/17 04:13 Other Lab Results: Lab Results x24hrs 10/04/17 10/04/17 Range/Units 04:13 04:13 WBC 20.7 H (4.8-10.8) x10^3/uL RBC 3.89 L (4.20-5.40) 10^6/uL Hgb 9.5 L (12.0-16.0) g/dL Hct 31.9 L (37.0-47.0) % MCV 82.0 (81.0-99.0) fL MCH 24.4 L (27.0-31.0) pg MCHC 29.8 L (32.0-36.0) g/dL RDW 22.6 H (12.0-15.0) % Plt Count 401 (130-450) 10^3/uL MPV 7.4 L (7.9-10.8) fL Neut # 18.9 H (1.5-6.6) 10^3/uL Lymph # 0.8 L (1.5-3.5) 10^3/uL [place] # 0.9 (0.0-1.0) 10^3/uL Eos # 0.0 (0.0-0.7) 10^3/uL Baso # 0.0 (0.0-0.1) 10^3/uL Absolute Nucleated RBC 0.01 x10^3/uL Nucleated RBC % 0.0 /100WBC Manual Slide Review Indicated Platelet Estimate NORMAL (130-450,000) (NORMAL) Platelet Morphology NORMAL APPEARANCE (NORMAL) RBC Morph Micro Appear 1+ TARGET CELLS (NORMAL) Sodium 135 (135-145) mmol/L Potassium 4.3 (3.5-5.0) mmol/L Chloride 101 (101-111) mmol/L Carbon Dioxide 27 (21-32) mmol/L Anion Gap 7.0 (6-13) BUN 21 H (6-20) mg/dL Creatinine 0.6 (0.4-1.0) mg/dL Estimated GFR (MDRD) 101 (>89) Glucose 165 H (70-100) mg/dL Calcium 7.4 L (8.5-10.3) mg/dL Total Bilirubin 0.5 (0.2-1.0) mg/dL AST 15 (10-42) IU/L ALT < 10 L (10-60) IU/L Alkaline Phosphatase 47 (42-121) IU/L Total Protein 4.5 L (6.7-8.2) g/dL Albumin 2.3 L (3.2-5.5) g/dL Globulin 2.2 (2.1-4.2) g/dL Albumin/Globulin Ratio 1.0 (1.0-2.2) - Current Medications Current Medications: Current Medications Generic Name Dose Route Start Last Admin Trade Name Freq PRN Reason Stop Dose Admin Enoxaparin Sodium 40 mg 10/04/17 09:00 10/04/17 08:01 Lovenox SUBQ 40 mg DAILY MATTHEW Administration Hydromorphone HCl 0.5 mg 10/04/17 08:46 10/04/17 10:04 Dilaudid Inj Syringe IVP 0.5 mg Q1HR PRN Administration PAIN Potassium Chloride/Dextrose/Sod Cl 1,000 mls @ 125 mls/hr 10/04/17 05:30 10:22 IV 125 mls/hr .Q8H MATTHEW Administration Acetaminophen 100 mls @ 400 mls/hr 10/04/17 08:00 10/04/17 09:26 Ofirmev IV Infused Q6H MATTHEW Infusion Ondansetron HCl 4 mg 10/03/17 21:32 10/03/17 23:41 Zofran Inj IVP 4 mg Q6H PRN Administration Nausea / Vomiting Pantoprazole Sodium 40 mg 10/04/17 07:00 10/04/17 07:06 Protonix IVP 40 mg QDAC MATTHEW Administration Prochlorperazine Edisylate 10 mg 10/04/17 01:52 10/04/17 03:01 Compazine Inj IVP 10 mg Q4HR PRN Administration Nausea / Vomiting Sodium Chloride 10 ml 10/04/17 01:00 10/04/17 07:31 Normal Saline Flush 0.9% IVP Not Given 0100,0900,1700 MATTHEW Sodium Chloride 10 ml 10/03/17 21:32 10/04/17 07:06 Normal Saline Flush 0.9% IVP 10 ml PRN PRN Administration NEEDED PER PROVIDER ORDERS Throat Lozenges 1 lozenge 10/04/17 03:08 10/04/17 07:05 Cepacol MM 1 lozenge Q2HR PRN Administration Throat pain - Physical Exam Wound/Incisions: positive: Dressing dry and intact General Appearance: positive: Mild distress (Patient is complaining of being put in a chair by Camille (the nurse) but I explained that it was done due to my orders and that I should be the source of her jimmie. In the moring I explained about the need to cough and pursue strict pulmonary toilet as well as walk. It was so important I wrote it on the white board. Despite this the patient is placing all the blame on nursing and none on herself for not pursuing improved pulmonary toilet and not getting out of bed. She admits that she did not want to get out of bed. I again explained that she is at risk for pneumonia and that this would make her pain significantly worse and severely increase her risk of dying. Although she states that she agrees, she is not self directed to get any of this done.) Eyes Bilateral: positive: No lid inflammation, Conjunctivae nml, No scleral icterus ENT: positive: No signs of dehydration Neck: positive: Trachea midline Respiratory: positive: Wheezes, Rales, Rhonchi Cardiovascular: positive: Regular rate & rhythm Abdomen: positive: No distention, Tenderness (Incisional.), Abnml bowel sounds Skin: positive: Other (Pasty complexion.) Extremities: positive: Nml appearance Neurologic/Psychiatric: positive: Oriented x3 Impression/Plan - Problem List Problem List: D1 s/p Exploratory laparotomy, reduction of left inguinal Rocha's hernia, closure of hernia defect, total abdominal hysterectomy and bilateral salpingo- oophorectomy, placement of drain, liver biopsy 1) FEN Continue IV fluids at current rate. Although patient's blood pressure is slightly down I believe this is her normal blood pressure. She is not tachycardic nor does she have any dizziness. We will check her CMP in the morning. 2) ID The diagnosis intraoperatively was out of pyometrium. The amount of purulence that we found in her uterus was astounding. Cultures were sent They returned gram-positive cocci but have not cultured out any organism. Additionally the cultures were mislabeled. This is not a wound abscess. Both cultures represent the pus that was pouring out of the patient's uterus. The patient is on day 2 of at least 7-10 days of Invanz. Despite this her white count climbed to 20,000 and some of this may be reactive. She does not have an elevated temperature but she is at tremendous risk for the development of pneumonia. This is been discussed at length with her and although she verbalizes an agreement I do not get the sense that she shares or fully comprehends the severity of this risk. 3) DVT Continued prophylaxis with teds and Venodyne's. The patient is on Levaquin as well. 4) Pathology Pending but I am concerned about a nearly obstructing distal uterine mass (possibly representing malignancy or premalignancy) as a contributing factor to her pyometrium. 5) Activity Despite extensive conversation with the patient and clear orders in the chart the patient is not ambulating as much as she should nor is she up in the chair as much as she should be. Her activity is a direct contributor to her healing and recovering. She is not participating the way she should. As a result she may not be ready for discharge at the 96 hour time period. 6) GI Already started clear liquids as part of the ERAS protocol but patient has not passed any significant amount of gas or had a bowel movement. Begin ambulation should help this.
[2017-10-04] MEDS ORDERED: LORazepam 0.5 MG TABLET PO PRN (11:55)
[2017-10-04] MEDS ORDERED: HYDROmorphone 1 MG/ML CARPUJECT IVP PRN (11:58)
[2017-10-04] MEDS ORDERED: oxyCODONE 5 MG TABLET PO PRN (12:55)
[2017-10-04] MEDS: IPRATROPIUM/ALBUTEROL 3 ML NEB INH PRN ×2 (13:04→19:45)
[2017-10-04] MEDS: guaiFENesin 600 MG TABLET PO SCH (16:39)
[2017-10-04] MEDS: MORPHINE PCA 50 MG IV PRN (16:59)
--- NOTE | 2017-10-04 17:47 | PROVIDER PROGRESS NOTE ---
Subjective - General Admit Date: 10/03/17 Procedure Date: 10/03/17 Post Op Days: 1 Procedure Performed: Exp lap with reduction Rocha hernia, repair hernia, GIFTY& BSO, drain, liver - Review of Systems Wound/Incisions: positive: Dressing dry and intact Drain Type: 19 Fr Pranay Drain Output Description: serosanguinous Approximate mls Output: 200 mL General: positive: No symptoms (Pain difficulty) Objective - Patient Data Reviewed Vital Signs: Yes Vital Signs: Vital Signs x48h Temp Pulse Pulse Resp BP Pulse Ox 10/04/17 17:29 12 10/04/17 15:43 36.4 C L 92 18 83/57 L 100 10/04/17 13:07 76 20 10/04/17 13:00 36.3 C L 74 18 89/69 L 99 10/04/17 11:08 36.5 C 85 18 93/56 L 99 Weight: Weight 10/02/17 10/03/17 10/04/17 23:59 23:59 23:59 Weight (kg) 53.977 kg Intake & Output: Intake and Output Totals x24h 10/02/17 10/03/17 10/04/17 23:59 23:59 23:59 Intake Total 1100 2546.66 Output Total 630 Balance 1100 1916.66 - Lab Results Lab Results: 10/04/17 04:13 10/04/17 04:13 Other Lab Results: Lab Results x24hrs 10/04/17 10/04/17 Range/Units 04:13 04:13 WBC 20.7 H (4.8-10.8) x10^3/uL RBC 3.89 L (4.20-5.40) 10^6/uL Hgb 9.5 L (12.0-16.0) g/dL Hct 31.9 L (37.0-47.0) % MCV 82.0 (81.0-99.0) fL MCH 24.4 L (27.0-31.0) pg MCHC 29.8 L (32.0-36.0) g/dL RDW 22.6 H (12.0-15.0) % Plt Count 401 (130-450) 10^3/uL MPV 7.4 L (7.9-10.8) fL Neut # 18.9 H (1.5-6.6) 10^3/uL Lymph # 0.8 L (1.5-3.5) 10^3/uL [place] # 0.9 (0.0-1.0) 10^3/uL Eos # 0.0 (0.0-0.7) 10^3/uL Baso # 0.0 (0.0-0.1) 10^3/uL Absolute Nucleated RBC 0.01 x10^3/uL Nucleated RBC % 0.0 /100WBC Manual Slide Review Indicated Platelet Estimate NORMAL (130-450,000) (NORMAL) Platelet Morphology NORMAL APPEARANCE (NORMAL) RBC Morph Micro Appear 1+ TARGET CELLS (NORMAL) Sodium 135 (135-145) mmol/L Potassium 4.3 (3.5-5.0) mmol/L Chloride 101 (101-111) mmol/L Carbon Dioxide 27 (21-32) mmol/L Anion Gap 7.0 (6-13) BUN 21 H (6-20) mg/dL Creatinine 0.6 (0.4-1.0) mg/dL Estimated GFR (MDRD) 101 (>89) Glucose 165 H (70-100) mg/dL Calcium 7.4 L (8.5-10.3) mg/dL Total Bilirubin 0.5 (0.2-1.0) mg/dL AST 15 (10-42) IU/L ALT < 10 L (10-60) IU/L Alkaline Phosphatase 47 (42-121) IU/L Total Protein 4.5 L (6.7-8.2) g/dL Albumin 2.3 L (3.2-5.5) g/dL Globulin 2.2 (2.1-4.2) g/dL Albumin/Globulin Ratio 1.0 (1.0-2.2) - Current Medications Current Medications: Current Medications Generic Name Dose Route Start Last Admin Trade Name Freq PRN Reason Stop Dose Admin Albuterol/Ipratropium 3 ml 10/04/17 12:15 10/04/17 13:04 Duoneb INH 3 ml RTQID PRN Administration Shortness of Air/Wheezing Enoxaparin Sodium 40 mg 10/04/17 09:00 10/04/17 08:01 Lovenox SUBQ 40 mg DAILY MATTHEW Administration Guaifenesin 600 mg 10/04/17 16:00 10/04/17 16:39 Mucinex PO Not Given BID MATTHEW Potassium Chloride/Dextrose/Sod Cl 1,000 mls @ 125 mls/hr 10/04/17 05:30 10:22 IV 125 mls/hr .Q8H MATTHEW Administration Acetaminophen 100 mls @ 400 mls/hr 10/04/17 08:00 10/04/17 17:26 Ofirmev IV Infused Q6H MATTHEW Infusion Morphine Sulfate/Sodium Chloride 0 mg 10/04/17 15:04 10/04/17 16:59 Morphine Char Filter Operator Helper (Use Char Filter Operator Helper Order Set) IV 50 mg SENIOR PRODUCTION PLANNER PRN Administration PAIN Protocol Ondansetron HCl 4 mg 10/03/17 21:32 10/03/17 23:41 Zofran Inj IVP 4 mg Q6H PRN Administration Nausea / Vomiting Pantoprazole Sodium 40 mg 10/04/17 07:00 10/04/17 07:06 Protonix IVP 40 mg QDAC MATTHEW Administration Prochlorperazine Edisylate 10 mg 10/04/17 01:52 10/04/17 03:01 Compazine Inj IVP 10 mg Q4HR PRN Administration Nausea / Vomiting Sodium Chloride 10 ml 10/04/17 01:00 10/04/17 17:26 Normal Saline Flush 0.9% IVP Not Given 0100,0900,1700 [facility] Sodium Chloride 10 ml 10/03/17 21:32 10/04/17 07:06 Normal Saline Flush 0.9% IVP 10 ml PRN PRN Administration NEEDED PER PROVIDER ORDERS Throat Lozenges 1 lozenge 10/04/17 03:08 10/04/17 07:05 Cepacol MM 1 lozenge Q2HR PRN Administration Throat pain - Physical Exam General Appearance: positive: No acute distress (Pt requesting improved pain control.), Alert Impression/Plan - Problem List Problem List: Pt is POD #[address] [facility] with BSO. She had a pyometria. He H/H is appropriate for blood loss. She is afebrile. Await her Path report. Surgery and Pending Path discussed with the Pt. Ordered Morphine SENIOR PRODUCTION PLANNER for pain control.
[2017-10-04] MEDS: BUDESONIDE 0.5 MG/2 ML NEB INH SCH (19:45)
[2017-10-04] MEDS: FORMOTEROL FUMARATE NEB 20 MCG/2 ML INH SCH (19:45)
[2017-10-04] MEDS: ERTAPENEM 1 GM in SODIUM CHLORIDE 0.9% MINIBAG 100 ML IV SCH (20:38)
[2017-10-04] MEDS ORDERED: CARVEDILOL 12.5 MG TABLET PO SCH (21:00)
[2017-10-05] MEDS: ACETAMINOPHEN 1,000 MG/100 ML 100 ML IV SCH ×4 (03:00→20:56)
[2017-10-05] MEDS: IPRATROPIUM/ALBUTEROL 3 ML NEB INH PRN ×2 (03:40→15:25)
[2017-10-05] MEDS: SODIUM CHLORIDE FLUSH 0.9% 10 ML SYRINGE IVP SCH ×3 (03:48→16:43)
[2017-10-05] MEDS: D5NS W/20 MEQ KCL 1,000 ML IV SCH ×2 (04:04→15:59)
[2017-10-05 05:07] LABS: BASOPHILS % (AUTO) 0.4 %; EOSINOPHILS # (AUTO) 0.1 10^3/uL (0.0-0.7); EOSINOPHILS % (AUTO) 1.1 %; HGB - HEMOGLOBIN 8.6 g/dL (12.0-16.0); LYMPHOCYTES # (AUTO) 0.9 10^3/uL (1.5-3.5); LYMPHOCYTES % (AUTO) 11.5 %; MEAN CORPUSCULAR HEMOGLOBIN 24.7 pg (27.0-31.0); MEAN CORPUSCULAR HGB CONC 29.7 g/dL (32.0-36.0); MEAN CORPUSCULAR VOLUME 83.3 fL (81.0-99.0); MEAN PLATELET VOLUME 7.1 fL (7.9-10.8); MONOCYTES # (AUTO) 0.6 10^3/uL (0.0-1.0); MONOCYTES % (AUTO) 6.8 %; NEUTROPHILS # (AUTO) 6.5 10^3/uL (1.5-6.6); NEUTROPHILS % (AUTO) 80.2 %; PLT - PLATELET COUNT 381 10^3/uL (130-450); RED BLOOD COUNT 3.46 10^6/uL (4.20-5.40); WHITE BLOOD COUNT 8.1 x10^3/uL (4.8-10.8)
[2017-10-05 05:17] LABS: ALBUMIN 2.4 g/dL (3.2-5.5); ALKALINE PHOSPHATASE 52 IU/L (42-121); ALT ALANINE AMINOTRANSFERASE < 10 IU/L (10-60); AST ASPARTATE AMINOTRANSFERASE 13 IU/L (10-42); BILIRUBIN,TOTAL 0.3 mg/dL (0.2-1.0); BUN - BLOOD UREA NITROGEN 11 mg/dL (6-20); CALCIUM 7.6 mg/dL (8.5-10.3); CARBON DIOXIDE - CO2 28 mmol/L (21-32); CHLORIDE 102 mmol/L (101-111); GLUCOSE 122 mg/dL (70-100); SODIUM 134 mmol/L (135-145); TOTAL PROTEIN 4.8 g/dL (6.7-8.2)
[2017-10-05 05:18] LABS: CREATININE < 0.3 mg/dL (0.4-1.0); GFR - MDRD 225 (>89)
[2017-10-05 05:38] LABS: PLATELET ESTIMATE, MANUAL NORMAL (130-450,000) (NORMAL); PLATELET MORPHOLOGY NORMAL APPEARANCE (NORMAL)
[2017-10-05] MEDS: PANTOPRAZOLE 40 MG VIAL IVP SCH (06:29)
[2017-10-05] MEDS: FORMOTEROL FUMARATE NEB 20 MCG/2 ML INH SCH ×2 (07:45→19:39)
[2017-10-05] MEDS: BUDESONIDE 0.5 MG/2 ML NEB INH SCH ×2 (07:45→19:39)
[2017-10-05] MEDS: ASPIRIN EC 81 MG TABLET PO SCH (09:01)
[2017-10-05] MEDS: guaiFENesin 600 MG TABLET PO SCH ×2 (09:01→22:07)
[2017-10-05] MEDS: ENOXAPARIN 40 MG/0.4 ML SYRINGE SUBQ SCH (09:45)
--- NOTE | 2017-10-05 10:47 | PROVIDER PROGRESS NOTE ---
Subjective - General Admit Date: 10/03/17 Procedure Date: 10/03/17 Post Op Days: 2 Procedure Performed: Exp lap with reduction Rocha hernia, repair hernia, GIFTY& BSO, drain, liver - Review of Systems Wound/Incisions: positive: Dressing dry and intact Drain Type: 19 Fr Pranay Drain Output Description: serosanguinous General: positive: No symptoms, Fatigue, Malaise HEENT: positive: No symptoms, Other (Feels as if something is stuck in her throat like phlegm. She refuses to cough and deep breathe because of wound pain.) Pulmonary: positive: Cough, Sputum, Wheezing Cardiovascular: positive: Other (Denies chest pain or irregular beat) Gastrointestinal: positive: No symptoms Genitourinary: positive: No symptoms (Macias in place.) Musculoskeletal: positive: No symptoms Skin: positive: No symptoms Psychiatric: positive: No symptoms Objective - Patient Data Vital Signs: Vital Signs x48h Temp Pulse Pulse Resp BP Pulse Ox 10/05/17 09:10 18 10/05/17 07:45 88 20 10/05/17 07:38 14 10/05/17 07:30 97.9 F 84 19 108/66 99 10/05/17 06:00 18 10/05/17 05:00 97.9 F 91 18 101/65 97 10/05/17 04:00 16 10/05/17 03:40 88 20 10/05/17 03:00 97.9 F 91 111/73 93 Weight: Weight 10/03/17 10/04/17 10/05/17 23:59 23:59 23:59 Weight (kg) 53.977 kg Intake & Output: Intake and Output Totals x24h 10/03/17 10/04/17 10/05/17 23:59 23:59 23:59 Intake Total 1100 3746.66 1500 Output Total 1165 500 Balance 1100 2581.66 1000 - Lab Results Lab Results: 10/05/17 04:25 10/05/17 04:25 Other Lab Results: Lab Results x24hrs 10/05/17 10/05/17 Range/Units 04:25 04:25 WBC 8.1 (4.8-10.8) x10^3/uL RBC 3.46 L (4.20-5.40) 10^6/uL Hgb 8.6 L (12.0-16.0) g/dL Hct 28.8 L (37.0-47.0) % MCV 83.3 (81.0-99.0) fL MCH 24.7 L (27.0-31.0) pg MCHC 29.7 L (32.0-36.0) g/dL RDW 22.0 H (12.0-15.0) % Plt Count 381 (130-450) 10^3/uL MPV 7.1 L (7.9-10.8) fL Neut # 6.5 (1.5-6.6) 10^3/uL Lymph # 0.9 L (1.5-3.5) 10^3/uL [place] # 0.6 (0.0-1.0) 10^3/uL Eos # 0.1 (0.0-0.7) 10^3/uL Baso # 0.0 (0.0-0.1) 10^3/uL Absolute Nucleated RBC 0.01 x10^3/uL Nucleated RBC % 0.1 /100WBC Manual Slide Review Indicated Platelet Estimate NORMAL (130-450,000) (NORMAL) Platelet Morphology NORMAL APPEARANCE (NORMAL) RBC Morph Micro Appear 1+ HYPOCHROMASIA (NORMAL) Sodium 134 L (135-145) mmol/L Potassium 4.3 (3.5-5.0) mmol/L Chloride 102 (101-111) mmol/L Carbon Dioxide 28 (21-32) mmol/L Anion Gap 4.0 L (6-13) BUN 11 (6-20) mg/dL Creatinine < 0.3 L (0.4-1.0) mg/dL Estimated GFR (MDRD) 225 (>89) Glucose 122 H (70-100) mg/dL Calcium 7.6 L (8.5-10.3) mg/dL Total Bilirubin 0.3 (0.2-1.0) mg/dL AST 13 (10-42) IU/L ALT < 10 L (10-60) IU/L Alkaline Phosphatase 52 (42-121) IU/L Total Protein 4.8 L (6.7-8.2) g/dL Albumin 2.4 L (3.2-5.5) g/dL Globulin 2.4 (2.1-4.2) g/dL Albumin/Globulin Ratio 1.0 (1.0-2.2) - Current Medications Current Medications: Current Medications Generic Name Dose Route Start Last Admin Trade Name Freq PRN Reason Stop Dose Admin Albuterol/Ipratropium 3 ml 10/04/17 12:15 10/05/17 03:40 Duoneb INH 3 ml RTQID PRN Administration Shortness of Air/Wheezing Aspirin 81 mg 10/05/17 09:00 10/05/17 09:01 Ecotrin PO 81 mg DAILY MATTHEW Administration Budesonide 0.5 mg 10/04/17 19:00 10/05/17 07:45 Pulmicort INH 0.5 mg RTBID MATTHEW Administration Enoxaparin Sodium 40 mg 10/04/17 09:00 10/05/17 09:45 Lovenox SUBQ 40 mg DAILY MATTHEW Administration Formoterol Fumarate 20 mcg 10/04/17 19:00 10/05/17 07:45 Perforomist INH 20 mcg RTBID MATTHEW Administration Guaifenesin 600 mg 10/04/17 16:00 10/05/17 09:01 Mucinex PO 600 mg BID MATTHEW Administration Ertapenem 1 gm/ Sodium 100 mls @ 200 mls/hr 10/03/17 23:14 10/04/17 21:11 Chloride IV Infused HS MATTHEW Infusion Potassium Chloride/Dextrose/Sod Cl 1,000 mls @ 125 mls/hr 10/04/17 05:30 04:04 IV 125 mls/hr .Q8H MATTHEW Administration Acetaminophen 100 mls @ 400 mls/hr 10/04/17 08:00 10/05/17 09:09 Ofirmev IV 400 mls/hr Q6H MATTHEW Administration Morphine Sulfate/Sodium Chloride 0 mg 10/04/17 15:04 10/04/17 16:59 Morphine Data Analyst Etl Developer (Use Data Analyst Etl Developer Order Set) IV 50 mg PERSONAL CARE ATTENDANT PRN Administration PAIN Protocol Ondansetron HCl 4 mg 10/03/17 21:32 10/03/17 23:41 Zofran Inj IVP 4 mg Q6H PRN Administration Nausea / Vomiting Pantoprazole Sodium 40 mg 10/04/17 07:00 10/05/17 06:29 Protonix IVP 40 mg QDAC MATTHEW Administration Prochlorperazine Edisylate 10 mg 10/04/17 01:52 10/04/17 03:01 Compazine Inj IVP 10 mg Q4HR PRN Administration Nausea / Vomiting Sodium Chloride 10 ml 10/04/17 01:00 10/05/17 03:48 Normal Saline Flush 0.9% IVP Not Given 0100,0900,1700 MATTHEW Sodium Chloride 10 ml 10/03/17 21:32 10/04/17 07:06 Normal Saline Flush 0.9% IVP 10 ml PRN PRN Administration NEEDED PER PROVIDER ORDERS Throat Lozenges 1 lozenge 10/04/17 03:08 10/04/17 07:05 Cepacol MM 1 lozenge Q2HR PRN Administration Throat pain - Physical Exam Abdomen: positive: Other (Bowel sounds present; Drain output reported 500 serosanguineous) Neurologic/Psychiatric: positive: Mood/affect nml (Irritable mood), Other Exam - Exam Vital Signs: Vital Signs (72 hours) 10/03/17 10/03/17 10/03/17 21:35 22:30 23:03 Temperature 98.2 F 97.7 F Heart Rate Heart Rate [ 107 H 108 H Apical] Heart Rate [ Brachial] Respiratory 18 14 Rate Blood Pressure 106/75 100/73 [Right Brachial artery] O2 Saturation 98 97 96 10/04/17 10/04/17 10/04/17 01:00 03:00 07:51 Temperature 97.3 F L 97.5 F L 97.5 F L Heart Rate Heart Rate [ Apical] Heart Rate [ 86 89 83 Brachial] Respiratory 16 16 17 Rate Blood Pressure 92/62 90/64 98/61 [Right Brachial artery] O2 Saturation 99 100 99 10/04/17 10/04/17 10/04/17 11:08 13:00 13:07 Temperature 97.7 F 97.3 F L Heart Rate 76 Heart Rate [ Apical] Heart Rate [ 85 74 Brachial] Respiratory 18 18 20 Rate Blood Pressure 93/56 L 89/69 L [Right Brachial artery] O2 Saturation 99 99 10/04/17 10/04/17 10/04/17 15:43 17:29 18:00 Temperature 97.5 F L Heart Rate Heart Rate [ Apical] Heart Rate [ 92 Brachial] Respiratory 18 12 12 Rate Blood Pressure 83/57 L [Right Brachial artery] O2 Saturation 100 10/04/17 10/04/1718 18:04 19:00 19:45 Temperature 97.5 F L Heart Rate 94 Heart Rate [ Apical] Heart Rate [ 91 Brachial] Respiratory 20 14 20 Rate Blood Pressure 113/75 [Right Brachial artery] O2 Saturation 100 10/04/17 10/04/17 10/04/17 20:00 20:33 22:00 Temperature 98.1 F Heart Rate Heart Rate [ Apical] Heart Rate [ 96 Brachial] Respiratory 16 16 16 Rate Blood Pressure 102/69 [Right Brachial artery] O2 Saturation 94 10/05/17 10/05/17 10/05/17 00:00 00:26 02:00 Temperature 98.1 F Heart Rate Heart Rate [ Apical] Heart Rate [ 86 Brachial] Respiratory 20 20 16 Rate Blood Pressure 106/69 [Right Brachial artery] O2 Saturation 99 10/05/17 10/05/17 10/05/17 03:00 03:40 04:00 Temperature 97.9 F Heart Rate 88 Heart Rate [ Apical] Heart Rate [ 91 Brachial] Respiratory 20 16 Rate Blood Pressure 111/73 [Right Brachial artery] O2 Saturation 93 10/05/17 10/05/17 10/05/17 05:00 06:00 07:30 Temperature 97.9 F 97.9 F Heart Rate Heart Rate [ Apical] Heart Rate [ 91 84 Brachial] Respiratory 18 18 19 Rate Blood Pressure 101/65 108/66 [Right Brachial artery] O2 Saturation 97 99 10/05/17 10/05/17 10/05/17 07:38 07:45 09:10 Temperature Heart Rate 88 Heart Rate [ Apical] Heart Rate [ Brachial] Respiratory 14 20 18 Rate Blood Pressure [Right Brachial artery] O2 Saturation General: Alert, Other (Cachectic appearance) HEENT: Mucous membr. moist/pink Lungs: Other (Scattered rales, occasional wheeze) Cardiovascular: Regular rate Abdomen: No hepatospenomegaly, Other (Appropriate tenderness) Extremities: No edema Neurological: Other (Uncertain about cognitive function) Psych/Mental Status: Other (Somewhat irritable mood, Patient angry that she cannot ambulate by herself) Assessment/Plan - Assessment/Plan Assessment: Ms. Artis is a 61-year-old woman who is recovering from bilateral hernia repair and total abdominal hysterectomy with bilateral salpingo-oophorectomy. There was substantial pyometrium and patient's currently on IV antibiotics without evidence of progressive infection. Patient refuses to cough deep breathe or use incentive spirometry. Her chest exam has both Rales and rhonchi. She is receiving a hand-held nebulizer by RT. Aggressive pulmonary toilet will be required. She is nutritionally at risk. Her gastrointestinal function is returning and we may be able to advance to clear liquid diet supplemented with Ensure. Primary case hardener is Dr. Salcido of general surgery. Plan: 1. Continue IV fluids and IV Ertapenenm w Pipracillin & Tazobactam 2. Push pulmonary toilet and incentive spirometry 3. Advance diet to full liquids and add Ensure as tolerated 4. Patient announced that she does not want to see me, she only wants to see Freddy FIELDS. I explained that he is out of town and that myself and Dr. Browne will be following her along with Dr. Do.
[2017-10-05] MEDS: ERTAPENEM 1 GM in SODIUM CHLORIDE 0.9% MINIBAG 100 ML IV SCH (21:35)
[2017-10-06] MEDS: D5NS W/20 MEQ KCL 1,000 ML IV SCH ×3 (00:36→13:29)
[2017-10-06] MEDS: SODIUM CHLORIDE FLUSH 0.9% 10 ML SYRINGE IVP SCH ×3 (00:37→16:21)
[2017-10-06] MEDS: ACETAMINOPHEN 1,000 MG/100 ML 100 ML IV SCH ×4 (01:50→20:02)
[2017-10-06 05:22] LABS: BASOPHILS # (AUTO) 0.1 10^3/uL (0.0-0.1); BASOPHILS % (AUTO) 0.6 %; EOSINOPHILS # (AUTO) 0.3 10^3/uL (0.0-0.7); EOSINOPHILS % (AUTO) 3.5 %; HGB - HEMOGLOBIN 7.8 g/dL (12.0-16.0); LYMPHOCYTES # (AUTO) 1.3 10^3/uL (1.5-3.5); LYMPHOCYTES % (AUTO) 15.1 %; MEAN CORPUSCULAR HEMOGLOBIN 24.8 pg (27.0-31.0); MEAN CORPUSCULAR VOLUME 82.8 fL (81.0-99.0); MEAN PLATELET VOLUME 6.6 fL (7.9-10.8); MONOCYTES # (AUTO) 0.6 10^3/uL (0.0-1.0); MONOCYTES % (AUTO) 7.7 %; NEUTROPHILS # (AUTO) 6.2 10^3/uL (1.5-6.6); NEUTROPHILS % (AUTO) 73.1 %; PLT - PLATELET COUNT 366 10^3/uL (130-450); RED BLOOD COUNT 3.13 10^6/uL (4.20-5.40); RED CELL DISTRIBUTION WIDTH 22.5 % (12.0-15.0); WHITE BLOOD COUNT 8.5 x10^3/uL (4.8-10.8)
[2017-10-06 05:33] LABS: ALBUMIN 2.1 g/dL (3.2-5.5); ALBUMIN/GLOBULIN RATIO 0.8 (1.0-2.2); ALKALINE PHOSPHATASE 53 IU/L (42-121); ALT ALANINE AMINOTRANSFERASE < 10 IU/L (10-60); AST ASPARTATE AMINOTRANSFERASE < 10 IU/L (10-42); BILIRUBIN,TOTAL 0.2 mg/dL (0.2-1.0); BUN - BLOOD UREA NITROGEN 6 mg/dL (6-20); CALCIUM 7.5 mg/dL (8.5-10.3); CARBON DIOXIDE - CO2 29 mmol/L (21-32); CHLORIDE 104 mmol/L (101-111); CREATININE 0.5 mg/dL (0.4-1.0); GFR - MDRD 125 (>89); GLUCOSE 124 mg/dL (70-100); SODIUM 135 mmol/L (135-145); TOTAL PROTEIN 4.6 g/dL (6.7-8.2)
[2017-10-06] MEDS: PANTOPRAZOLE 40 MG VIAL IVP SCH (06:15)
[2017-10-06] MEDS: SODIUM CHLORIDE FLUSH 0.9% 10 ML SYRINGE IVP PRN (06:15)
[2017-10-06 06:42] LABS: PLATELET ESTIMATE, MANUAL NORMAL (130-450,000) (NORMAL); PLATELET MORPHOLOGY 1+ LARGE PLATELETS (NORMAL)
[2017-10-06] MEDS: FORMOTEROL FUMARATE NEB 20 MCG/2 ML INH SCH ×2 (07:45→16:29)
[2017-10-06] MEDS: BUDESONIDE 0.5 MG/2 ML NEB INH SCH ×2 (07:45→16:29)
[2017-10-06] MEDS: IPRATROPIUM/ALBUTEROL 3 ML NEB INH PRN ×2 (07:45→16:28)
[2017-10-06] MEDS: guaiFENesin 600 MG TABLET PO SCH ×2 (09:54→21:09)
[2017-10-06] MEDS: ASPIRIN EC 81 MG TABLET PO SCH (09:54)
[2017-10-06] MEDS: ENOXAPARIN 40 MG/0.4 ML SYRINGE SUBQ SCH (09:55)
[2017-10-06] MEDS: MORPHINE PCA 50 MG IV PRN (11:27)
[2017-10-06] MEDS ORDERED: IBUPROFEN 400 MG TABLET PO PRN (18:00)
--- NOTE | 2017-10-06 18:07 | PROVIDER PROGRESS NOTE ---
Subjective - General Admit Date: 10/03/17 Procedure Date: 10/03/17 Post Op Days: 3 Procedure Performed: Exp lap with reduction Rocha hernia, repair hernia, GIFTY& BSO, drain, liver - Review of Systems Wound/Incisions: positive: Healing well. negative: Erythema Drain Type: 19 Fr Pranay Drain Output Description: serosanguinous Approximate mls Output: 300 mL/24 hrs General: positive: Fatigue, Malaise HEENT: positive: No symptoms, Other (Feels as if something is stuck in her throat like phlegm. She refuses to cough and deep breathe because of wound pain.) Pulmonary: negative: Shortness of breath, Pleuritic chest pain, Hemoptysis Cardiovascular: positive: No symptoms, Other (Denies chest pain or irregular beat) Gastrointestinal: positive: Abdominal pain, Constipation Genitourinary: positive: No symptoms ([place] in place.) Musculoskeletal: positive: No symptoms Skin: positive: No symptoms Psychiatric: positive: No symptoms Objective - Patient Data Vital Signs: Vital Signs x48h Temp Pulse Pulse Resp BP Pulse Ox 10/06/17 16:31 86 20 10/06/17 15:39 36.6 C 94 18 135/88 H 97 10/06/17 14:00 22 10/06/17 13:18 36.5 C 96 20 112/76 89 L Weight: Weight 10/04/17 10/05/17 10/06/17 23:59 23:59 23:59 Weight (kg) 53.977 kg Intake & Output: Intake and Output Totals x24h 10/04/17 10/05/17 10/06/17 23:59 23:59 23:59 Intake Total 3746.66 4450.000 1950 Output Total 1165 1890 1240 Balance 2581.66 2560.000 710 - Lab Results Lab Results: 10/06/17 05:00 10/06/17 05:00 Other Lab Results: Lab Results x24hrs 10/06/17 10/06/17 Range/Units 05:00 05:00 WBC 8.5 (4.8-10.8) x10^3/uL RBC 3.13 L (4.20-5.40) 10^6/uL Hgb 7.8 L (12.0-16.0) g/dL Hct 25.9 L (37.0-47.0) % MCV 82.8 (81.0-99.0) fL MCH 24.8 L (27.0-31.0) pg MCHC 30.0 L (32.0-36.0) g/dL RDW 22.5 H (12.0-15.0) % Plt Count 366 (130-450) 10^3/uL MPV 6.6 L (7.9-10.8) fL Neut # 6.2 (1.5-6.6) 10^3/uL Lymph # 1.3 L (1.5-3.5) 10^3/uL [place] # 0.6 (0.0-1.0) 10^3/uL Eos # 0.3 (0.0-0.7) 10^3/uL Baso # 0.1 (0.0-0.1) 10^3/uL Absolute Nucleated RBC 0.00 x10^3/uL Nucleated RBC % 0.0 /100WBC Manual Slide Review Indicated Platelet Estimate NORMAL (130-450,000) (NORMAL) Platelet Morphology 1+ LARGE PLATELETS (NORMAL) RBC Morph Micro Appear 1+ SPHEROCYTES (NORMAL) Sodium 135 (135-145) mmol/L Potassium 4.4 (3.5-5.0) mmol/L Chloride 104 (101-111) mmol/L Carbon Dioxide 29 (21-32) mmol/L Anion Gap 2.0 L (6-13) BUN 6 (6-20) mg/dL Creatinine 0.5 (0.4-1.0) mg/dL Estimated GFR (MDRD) 125 (>89) Glucose 124 H (70-100) mg/dL Calcium 7.5 L (8.5-10.3) mg/dL Total Bilirubin 0.2 (0.2-1.0) mg/dL AST < 10 L (10-42) IU/L ALT < 10 L (10-60) IU/L Alkaline Phosphatase 53 (42-121) IU/L Total Protein 4.6 L (6.7-8.2) g/dL Albumin 2.1 L (3.2-5.5) g/dL Globulin 2.5 (2.1-4.2) g/dL Albumin/Globulin Ratio 0.8 L (1.0-2.2) - Current Medications Current Medications: Current Medications Generic Name Dose Route Start Last Admin Trade Name Freq PRN Reason Stop Dose Admin Albuterol/Ipratropium 3 ml 10/04/17 12:15 10/06/17 16:28 Duoneb INH 3 ml RTQID PRN Administration Shortness of Air/Wheezing Aspirin 81 mg 10/05/17 09:00 10/06/17 09:54 Ecotrin PO 81 mg DAILY MATTHEW Administration Budesonide 0.5 mg 10/04/17 19:00 10/06/17 16:29 Pulmicort INH 0.5 mg RTBID MATTHEW Administration Enoxaparin Sodium 40 mg 10/04/17 09:00 10/06/17 09:55 Lovenox SUBQ 40 mg DAILY MATTHEW Administration Formoterol Fumarate 20 mcg 10/04/17 19:00 10/06/17 16:29 Perforomist INH 20 mcg RTBID MATTHEW Administration Guaifenesin 600 mg 10/04/17 16:00 10/06/17 09:54 Mucinex PO 600 mg BID MATTHEW Administration Ertapenem 1 gm/ Sodium 100 mls @ 200 mls/hr 10/03/17 23:14 10/05/17 22:06 Chloride IV Infused HS MATTHEW Infusion Acetaminophen 100 mls @ 400 mls/hr 10/04/17 08:00 10/06/17 13:45 Ofirmev IV Infused Q6H MATTHEW Infusion Ondansetron HCl 4 mg 10/03/17 21:32 10/03/17 23:41 Zofran Inj IVP 4 mg Q6H PRN Administration Nausea / Vomiting Sodium Chloride 10 ml 10/04/17 01:00 10/06/17 16:21 Normal Saline Flush 0.9% IVP Not Given 0100,0900,1700 MATTHEW Sodium Chloride 10 ml 10/03/17 21:32 10/06/17 06:15 Normal Saline Flush 0.9% IVP 10 ml PRN PRN Administration NEEDED PER PROVIDER ORDERS Throat Lozenges 1 lozenge 10/04/17 03:08 10/04/17 07:05 Cepacol MM 1 lozenge Q2HR PRN Administration Throat pain - Physical Exam Wound/Incisions: positive: Healing well. negative: Erythema General Appearance: positive: No acute distress Eyes Bilateral: positive: Normal inspection, No scleral icterus ENT: positive: ENT inspection nml, Pharynx nml, No signs of dehydration Neck: positive: Nml inspection, No JVD. negative: Lymphadenopathy (R), Lymphadenopathy (L) Respiratory: positive: Chest non-tender, No respiratory distress, Breath sounds nml (except slightly diminished in the bases) Cardiovascular: positive: Regular rate & rhythm, No murmur, No gallop Abdomen: positive: Non-tender, Nml bowel sounds. negative: Tenderness Skin: positive: Color nml, Warm, Dry Extremities: positive: Non-tender, Nml appearance, No pedal edema. negative: Calf tenderness Neurologic/Psychiatric: positive: Oriented x3 Comments/Other: vaginal and peritoneal cultures NG x 48 hours. Impression/Plan - Problem List Problem List: Imp: PO Day 3 s/p repair of incarcerated LIH with SBO and GIFTY/BSO; doing well clinically. Anemia likely due to blood loss from surgery plus fluid shifts; no evidence of active bleeding at this time. No evidence of infection at this time. Plan: d/c IVF, change to oral pain meds, resume laxatives, increase activity; recheck CBC in am; discuss with automotive software engineer duration of antibiotic therapy.
[2017-10-06] MEDS: SENNA 8.6 MG TABLET PO SCH (18:38)
[2017-10-06] MEDS: ERTAPENEM 1 GM in SODIUM CHLORIDE 0.9% MINIBAG 100 ML IV SCH (21:06)
--- NOTE | 2017-10-06 21:23 | PROVIDER PROGRESS NOTE ---
Subjective - General Admit Date: 10/03/17 Procedure Date: 10/03/17 Post Op Days: 3 Procedure Performed: Exp lap with reduction Rocha hernia, repair hernia, GIFTY& BSO, drain, liver - Review of Systems Wound/Incisions: positive: Healing well. negative: Erythema Drain Type: 19 Fr Pranay Drain Output Description: serosanguinous Approximate mls Output: 300 mL/24 hrs General: positive: Other (Patient asleep with the TV on. Nasal cannula in nares bilaterally. No visitors in the room currently.) Pulmonary: negative: Shortness of breath, Pleuritic chest pain, Hemoptysis Objective - Patient Data Reviewed Vital Signs: Yes Vital Signs: Vital Signs x48h Temp Pulse Pulse Resp BP Pulse Ox 10/06/17 19:00 97.3 F L 92 19 145/89 H 96 10/06/17 18:00 20 10/06/17 16:31 86 20 10/06/17 15:39 97.9 F 94 18 135/88 H 97 10/06/17 14:00 22 Weight: Weight 10/04/17 10/05/17 10/06/17 23:59 23:59 23:59 Weight (kg) 53.977 kg Intake & Output: Intake and Output Totals x24h 10/04/17 10/05/17 10/06/17 23:59 23:59 23:59 Intake Total 3746.66 4450.000 2200 Output Total 1165 1890 1490 Balance 2581.66 2560.000 710 - Lab Results Lab Results: 10/06/17 05:00 10/06/17 05:00 Other Lab Results: Lab Results x24hrs 10/06/17 10/06/17 Range/Units 05:00 05:00 WBC 8.5 (4.8-10.8) x10^3/uL RBC 3.13 L (4.20-5.40) 10^6/uL Hgb 7.8 L (12.0-16.0) g/dL Hct 25.9 L (37.0-47.0) % MCV 82.8 (81.0-99.0) fL MCH 24.8 L (27.0-31.0) pg MCHC 30.0 L (32.0-36.0) g/dL RDW 22.5 H (12.0-15.0) % Plt Count 366 (130-450) 10^3/uL MPV 6.6 L (7.9-10.8) fL Neut # 6.2 (1.5-6.6) 10^3/uL Lymph # 1.3 L (1.5-3.5) 10^3/uL [place] # 0.6 (0.0-1.0) 10^3/uL Eos # 0.3 (0.0-0.7) 10^3/uL Baso # 0.1 (0.0-0.1) 10^3/uL Absolute Nucleated RBC 0.00 x10^3/uL Nucleated RBC % 0.0 /100WBC Manual Slide Review Indicated Platelet Estimate NORMAL (130-450,000) (NORMAL) Platelet Morphology 1+ LARGE PLATELETS (NORMAL) RBC Morph Micro Appear 1+ SPHEROCYTES (NORMAL) Sodium 135 (135-145) mmol/L Potassium 4.4 (3.5-5.0) mmol/L Chloride 104 (101-111) mmol/L Carbon Dioxide 29 (21-32) mmol/L Anion Gap 2.0 L (6-13) BUN 6 (6-20) mg/dL Creatinine 0.5 (0.4-1.0) mg/dL Estimated GFR (MDRD) 125 (>89) Glucose 124 H (70-100) mg/dL Calcium 7.5 L (8.5-10.3) mg/dL Total Bilirubin 0.2 (0.2-1.0) mg/dL AST < 10 L (10-42) IU/L ALT < 10 L (10-60) IU/L Alkaline Phosphatase 53 (42-121) IU/L Total Protein 4.6 L (6.7-8.2) g/dL Albumin 2.1 L (3.2-5.5) g/dL Globulin 2.5 (2.1-4.2) g/dL Albumin/Globulin Ratio 0.8 L (1.0-2.2) - Current Medications Current Medications: Current Medications Generic Name Dose Route Start Last Admin Trade Name Freq PRN Reason Stop Dose Admin Albuterol/Ipratropium 3 ml 10/04/17 12:15 10/06/17 16:28 Duoneb INH 3 ml RTQID PRN Administration Shortness of Air/Wheezing Aspirin 81 mg 10/05/17 09:00 10/06/17 09:54 Ecotrin PO 81 mg DAILY MATTHEW Administration Budesonide 0.5 mg 10/04/17 19:00 10/06/17 16:29 Pulmicort INH 0.5 mg RTBID MATTHEW Administration Enoxaparin Sodium 40 mg 10/04/17 09:00 10/06/17 09:55 Lovenox SUBQ 40 mg DAILY MATTHEW Administration Formoterol Fumarate 20 mcg 10/04/17 19:00 10/06/17 16:29 Perforomist INH 20 mcg RTBID MATTHEW Administration Guaifenesin 600 mg 10/04/17 16:00 10/06/17 21:09 Mucinex PO 600 mg BID MATTHEW Administration Ertapenem 1 gm/ Sodium 100 mls @ 200 mls/hr 10/03/17 23:14 10/06/17 21:06 Chloride IV 200 mls/hr HS MATTHEW Administration Acetaminophen 100 mls @ 400 mls/hr 10/04/17 08:00 10/06/17 20:18 Ofirmev IV Infused Q6H MATTHEW Infusion Lorazepam 0.5 mg 10/04/17 11:55 10/06/17 18:50 Ativan PO 0.5 mg Q6H PRN Administration Anxiety Ondansetron HCl 4 mg 10/03/17 21:32 10/03/17 23:41 Zofran Inj IVP 4 mg Q6H PRN Administration Nausea / Vomiting Senna 17.2 mg 10/06/17 18:02 10/06/17 18:38 Senokot PO 17.2 mg DAILY MATTHEW Administration Sodium Chloride 10 ml 10/04/17 01:00 10/06/17 16:21 Normal Saline Flush 0.9% IVP Not Given 0100,0900,1700 MATTHEW Sodium Chloride 10 ml 10/03/17 21:32 10/06/17 06:15 Normal Saline Flush 0.9% IVP 10 ml PRN PRN Administration NEEDED PER PROVIDER ORDERS Throat Lozenges 1 lozenge 10/04/17 03:08 10/04/17 07:05 Cepacol MM 1 lozenge Q2HR PRN Administration Throat pain Impression/Plan - Problem List Problem List: 61 yo S/p GIFTY/BSO 10/03/2017, POD #3 Suspicious for squamous cell carcinoma Pyometrium seen at the time of surgery Recommend patient to be on a minimum of antibiotics for 24 hours. When the patient is also 24 hours afebrile and without leukocytosis, may consider discharge to home. If pathology confirms malignancy, will need to be seen by CTC OPERATOR ONC for further discussion of diagnosis and treatment.
[2017-10-06] MEDS: HYDROcod/ACETAM 5/325 MG TABLET PO PRN (23:40)
[2017-10-07] MEDS: ACETAMINOPHEN 1,000 MG/100 ML 100 ML IV SCH ×4 (02:18→20:12)
[2017-10-07] MEDS: SODIUM CHLORIDE FLUSH 0.9% 10 ML SYRINGE IVP SCH ×4 (02:19→16:47)
[2017-10-07 05:03] LABS: BASOPHILS # (AUTO) 0.1 10^3/uL (0.0-0.1); BASOPHILS % (AUTO) 1.6 %; EOSINOPHILS # (AUTO) 0.3 10^3/uL (0.0-0.7); EOSINOPHILS % (AUTO) 3.3 %; HGB - HEMOGLOBIN 8.5 g/dL (12.0-16.0); LYMPHOCYTES # (AUTO) 1.4 10^3/uL (1.5-3.5); LYMPHOCYTES % (AUTO) 14.9 %; MEAN CORPUSCULAR HEMOGLOBIN 25.4 pg (27.0-31.0); MEAN CORPUSCULAR VOLUME 82.1 fL (81.0-99.0); MEAN PLATELET VOLUME 6.9 fL (7.9-10.8); MONOCYTES # (AUTO) 0.6 10^3/uL (0.0-1.0); MONOCYTES % (AUTO) 6.7 %; NEUTROPHILS # (AUTO) 6.7 10^3/uL (1.5-6.6); NEUTROPHILS % (AUTO) 73.5 %; PLT - PLATELET COUNT 407 10^3/uL (130-450); RED BLOOD COUNT 3.36 10^6/uL (4.20-5.40); RED CELL DISTRIBUTION WIDTH 22.3 % (12.0-15.0); WHITE BLOOD COUNT 9.1 x10^3/uL (4.8-10.8)
[2017-10-07 05:13] LABS: ALBUMIN 2.3 g/dL (3.2-5.5); ALBUMIN/GLOBULIN RATIO 0.9 (1.0-2.2); ALKALINE PHOSPHATASE 64 IU/L (42-121); ALT ALANINE AMINOTRANSFERASE < 10 IU/L (10-60); AST ASPARTATE AMINOTRANSFERASE < 10 IU/L (10-42); BILIRUBIN,TOTAL 0.4 mg/dL (0.2-1.0); BUN - BLOOD UREA NITROGEN 6 mg/dL (6-20); CALCIUM 8.1 mg/dL (8.5-10.3); CARBON DIOXIDE - CO2 32 mmol/L (21-32); CHLORIDE 99 mmol/L (101-111); CREATININE 0.5 mg/dL (0.4-1.0); GFR - MDRD 125 (>89); GLUCOSE 110 mg/dL (70-100); SODIUM 134 mmol/L (135-145)
[2017-10-07 05:47] LABS: PLATELET ESTIMATE, MANUAL NORMAL (130-450,000) (NORMAL); PLATELET MORPHOLOGY NORMAL APPEARANCE (NORMAL)
[2017-10-07] MEDS: BUDESONIDE 0.5 MG/2 ML NEB INH SCH ×2 (07:36→16:49)
[2017-10-07] MEDS: FORMOTEROL FUMARATE NEB 20 MCG/2 ML INH SCH ×2 (07:36→16:49)
[2017-10-07] MEDS: IPRATROPIUM/ALBUTEROL 3 ML NEB INH PRN ×2 (07:36→16:49)
[2017-10-07] MEDS: HYDROcod/ACETAM 5/325 MG TABLET PO PRN (07:52)
[2017-10-07] MEDS: ENOXAPARIN 40 MG/0.4 ML SYRINGE SUBQ SCH (09:07)
[2017-10-07] MEDS: guaiFENesin 600 MG TABLET PO SCH (09:07)
[2017-10-07] MEDS: SENNA 8.6 MG TABLET PO SCH (09:07)
[2017-10-07] MEDS: ASPIRIN EC 81 MG TABLET PO SCH (09:07)
[2017-10-07] MEDS ORDERED: MORPHINE PCA 50 MG IV PRN (10:57)
[2017-10-07] MEDS ORDERED: NS W/20 MEQ KCL 1,000 ML IV STA (12:36)
--- NOTE | 2017-10-07 13:19 | XRAY Report ---
EXAM: ABDOMEN RADIOGRAPHY EXAM DATE: 10/07/2017 11:38 AM. CLINICAL HISTORY: Increasing abd pain 4 days s/p GIFTY and hernia rep. COMPARISON: 10/03/2017. TECHNIQUE: 2 views. FINDINGS: Lung Bases: Unremarkable. Bowel Gas Pattern: Dilated small bowel loops with air-fluid levels are similar in appearance. Colon i s relatively gasless. There is contrast within distal small bowel loops. Free Air: None visualized. Other: Question small pleural effusions at the lung bases. IMPRESSION: 1. Unchanged findings of small bowel obstruction. No visualized free air. 2. Probable small pleural effusions. [facility] Referring Provider Line: [phone] SITE ID: [id number]
--- NOTE | 2017-10-07 13:22 | XRAY Report ---
EXAM: CHEST RADIOGRAPHY EXAM DATE: 10/07/2017 11:39 AM. CLINICAL HISTORY: Increased cough, sputum, decr 02 sat. COMPARISON: 10/03/2017. TECHNIQUE: 2 views. FINDINGS: Lungs/Pleura: Small recurrent left pleural effusions are new from before. Adjacent lung base opacitie s. Lungs otherwise clear. No pneumothorax. Mediastinum: Heart size is stable and prominent. Mildly tortuous aorta. Other: Scoliosis. IMPRESSION: Small right greater than left pleural effusions are new from prior. Adjacent basilar opac ities likely represent atelectasis. Pneumonia/aspiration not excluded. [facility] Referring Provider Line: [phone] SITE ID: [id number]
--- NOTE | 2017-10-07 13:38 | PROVIDER PROGRESS NOTE ---
Subjective - General Admit Date: 10/03/17 Procedure Date: 10/03/17 Post Op Days: 4 Procedure Performed: Exp lap with reduction Rocha hernia, repair hernia, GFITY& BSO, drain, liver - Review of Systems Wound/Incisions: positive: Healing well. negative: Erythema Drain Type: 19 Fr Pranay Drain Output Description: serosanguinous Approximate mls Output: 300 mL/24 hrs General: positive: Other (Patient visiting with friend at bedside. Has nasal cannula on her head. PREMIUM SERVICE REPRESENTATIVE restarted by Dr. Martinez.) HEENT: positive: No symptoms, Other (Feels as if something is stuck in her throat like phlegm. She refuses to cough and deep breathe because of wound pain.) Pulmonary: positive: No symptoms. negative: Shortness of breath, Pleuritic chest pain, Hemoptysis Cardiovascular: positive: No symptoms, Other (Denies chest pain or irregular beat) Gastrointestinal: positive: Abdominal pain Genitourinary: positive: No symptoms (Denies vaginal bleeding. States she is urinating.) Musculoskeletal: positive: No symptoms Skin: positive: No symptoms Psychiatric: positive: No symptoms Objective - Patient Data Reviewed Vital Signs: Yes Vital Signs: Vital Signs x48h Temp Pulse Pulse Resp BP Pulse Ox 10/07/17 07:37 90 18 10/07/17 07:21 97.9 F 93 19 138/86 H 98 Intake & Output: Intake and Output Totals x24h 10/05/17 10/06/17 10/07/17 23:59 23:59 23:59 Intake Total 4450.000 2300 1400 Output Total 1890 1615 555 Balance 2560.000 685 845 - Lab Results Lab Results: 10/07/17 04:43 10/07/17 04:43 Other Lab Results: Lab Results x24hrs 10/07/17 10/07/17 Range/Units 04:43 04:43 WBC 9.1 (4.8-10.8) x10^3/uL RBC 3.36 L (4.20-5.40) 10^6/uL Hgb 8.5 L (12.0-16.0) g/dL Hct 27.6 L (37.0-47.0) % MCV 82.1 (81.0-99.0) fL MCH 25.4 L (27.0-31.0) pg MCHC 31.0 L (32.0-36.0) g/dL RDW 22.3 H (12.0-15.0) % Plt Count 407 (130-450) 10^3/uL MPV 6.9 L (7.9-10.8) fL Neut # 6.7 H (1.5-6.6) 10^3/uL Lymph # 1.4 L (1.5-3.5) 10^3/uL [place] # 0.6 (0.0-1.0) 10^3/uL Eos # 0.3 (0.0-0.7) 10^3/uL Baso # 0.1 (0.0-0.1) 10^3/uL Absolute Nucleated RBC 0.00 x10^3/uL Nucleated RBC % 0.0 /100WBC Manual Slide Review Indicated Platelet Estimate NORMAL (130-450,000) (NORMAL) Platelet Morphology NORMAL APPEARANCE (NORMAL) RBC Morph Micro Appear 1+ HYPOCHROMASIA (NORMAL) Sodium 134 L (135-145) mmol/L Potassium 4.6 (3.5-5.0) mmol/L Chloride 99 L (101-111) mmol/L Carbon Dioxide 32 (21-32) mmol/L Anion Gap 3.0 L (6-13) BUN 6 (6-20) mg/dL Creatinine 0.5 (0.4-1.0) mg/dL Estimated GFR (MDRD) 125 (>89) Glucose 110 H (70-100) mg/dL Calcium 8.1 L (8.5-10.3) mg/dL Total Bilirubin 0.4 (0.2-1.0) mg/dL AST < 10 L (10-42) IU/L ALT < 10 L (10-60) IU/L Alkaline Phosphatase 64 (42-121) IU/L Total Protein 5.0 L (6.7-8.2) g/dL Albumin 2.3 L (3.2-5.5) g/dL Globulin 2.7 (2.1-4.2) g/dL Albumin/Globulin Ratio 0.9 L (1.0-2.2) - Current Medications Current Medications: Current Medications Generic Name Dose Route Start Last Admin Trade Name Freq PRN Reason Stop Dose Admin Acetaminophen/Hydrocodone Bitart 1 tab 04/21/18 20:32 10/07/17 07:52 [place] 5/325 PO 1 tab Q4HR PRN Administration PAIN Albuterol/Ipratropium 3 ml 10/04/17 12:15 10/07/17 07:36 Duoneb INH 3 ml RTQID PRN Administration Shortness of Air/Wheezing Aspirin 81 mg 10/05/17 09:00 10/07/17 09:07 Ecotrin PO 81 mg DAILY MATTHEW Administration Budesonide 0.5 mg 10/04/17 19:00 10/07/17 07:36 Pulmicort INH 0.5 mg RTBID MATTHEW Administration Enoxaparin Sodium 40 mg 10/04/17 09:00 10/07/17 09:07 Lovenox SUBQ 40 mg DAILY MATTHEW Administration Formoterol Fumarate 20 mcg 10/04/17 19:00 10/07/17 07:36 Perforomist INH 20 mcg RTBID MATTHEW Administration Guaifenesin 600 mg 10/04/17 16:00 10/07/17 09:07 Mucinex PO 600 mg BID MATTHEW Administration Ertapenem 1 gm/ Sodium 100 mls @ 200 mls/hr 10/03/17 23:14 10/06/17 21:36 Chloride IV Infused HS MATTHEW Infusion Acetaminophen 100 mls @ 400 mls/hr 10/04/17 08:00 10/07/17 08:37 Ofirmev IV Infused Q6H MATTHEW Infusion Potassium Chloride/Sodium Chloride 1,000 mls @ 83.333 mls/hr 10/07/17 12:36 10/07/17 13:23 Normal Saline 0.9% W/20 Meq Kcl IV 10/08/17 00:35 83.333 mls/hr .Q12H STA Administration Lorazepam 0.5 mg 10/04/17 11:55 10/06/17 18:50 Ativan PO 0.5 mg Q6H PRN Administration Anxiety Morphine Sulfate/Sodium Chloride 50 mg 10/07/17 10:57 10/07/17 11:17 Morphine Inspector And Unloader (Use Inspector And Unloader Order Set) IV 50 mg PREMIUM SERVICE REPRESENTATIVE PRN Administration PAIN Protocol Ondansetron HCl 4 mg 10/03/17 21:32 10/03/17 23:41 Zofran Inj IVP 4 mg Q6H PRN Administration Nausea / Vomiting Senna 17.2 mg 10/06/17 18:02 10/07/17 09:07 Senokot PO 17.2 mg DAILY MATTHEW Administration Sodium Chloride 10 ml 10/04/17 01:00 10/07/17 07:52 Normal Saline Flush 0.9% IVP 10 ml 0100,0900,1700 MATTHEW Administration Sodium Chloride 10 ml 10/03/17 21:32 10/06/17 06:15 Normal Saline Flush 0.9% IVP 10 ml PRN PRN Administration NEEDED PER PROVIDER ORDERS Throat Lozenges 1 lozenge 10/04/17 03:08 10/04/17 07:05 Cepacol MM 1 lozenge Q2HR PRN Administration Throat pain - Physical Exam Wound/Incisions: positive: No drainage (Vertical midline incision with savi inact. Also small LLQ incision with savi. Has abdominal drain in RLQ. No erythema, edema nor exudate.) General Appearance: positive: No acute distress Abdomen: positive: Non-tender Neurologic/Psychiatric: positive: Oriented x3 (Irritable personality) Impression/Plan - Problem List Problem List: 61 yo S/p GIFTY/BSO Normal recovery from hysterectomy Awaiting results of pathology Routine care per General surgery team
--- NOTE | 2017-10-07 15:11 | XRAY Report ---
EXAM: CHEST RADIOGRAPHY EXAM DATE: 10/07/2017 02:58 PM. CLINICAL HISTORY: NG tube placement. COMPARISON: 10/07/2017. TECHNIQUE: 1 view. FINDINGS: Lungs/Pleura: There is reticular opacity within the lower lungs. Costophrenic sulcus blunting likely represents small effusions. No pneumothorax. Mediastinum: There is cardiomegaly. Other: Nasogastric tube tip projects over the upper mid stomach. IMPRESSION: 1. Nasogastric tube tip projects over the upper to mid stomach. 2. Remainder stable. [facility] Referring Provider Line: [phone] SITE ID: [id number]
[2017-10-07] MEDS: BENZOCAINE/MENTHOL LOZENGE MM PRN (15:12)
--- NOTE | 2017-10-07 15:53 | PROVIDER PROGRESS NOTE ---
Subjective - General Admit Date: 10/03/17 Procedure Date: 10/03/17 Post Op Days: 4 Procedure Performed: Exp lap with reduction hernia, repair hernia, GIFTY&BSO, drain, liver bx - Review of Systems Wound/Incisions: positive: No drainage (Vertical midline incision with savi inact. Also small LLQ incision with savi. Has abdominal drain in RLQ. No erythema, edema nor exudate.) Drain Type: 19 Fr Pranay Drain Output Description: serosanguinous Approximate mls Output: 300 mL/24 hrs General: positive: Other (c/o worsening abdominal pain and nausea; no flatus or stool since surgery) HEENT: positive: No symptoms, Other (Feels as if something is stuck in her throat like phlegm. She refuses to cough and deep breathe because of wound pain.) Pulmonary: positive: Cough, Sputum. negative: Shortness of breath, Pleuritic chest pain, Hemoptysis, Wheezing Cardiovascular: positive: No symptoms, Other (Denies chest pain or irregular beat) Gastrointestinal: positive: Nausea, Abdominal pain (generalized, worsening) Genitourinary: positive: No symptoms (Denies vaginal bleeding. States she is urinating.) Musculoskeletal: positive: No symptoms Skin: positive: No symptoms Psychiatric: positive: No symptoms - Other Other Information/Narrative: c/o increasing distention, worsening generalized abdominal pain and nausea; continues to request BLUEPRINT ENGINEER morphine for pain control; no flatus/stool per rectum. Objective - Patient Data Vital Signs: Vital Signs x48h Temp Pulse Resp BP Pulse Ox 10/07/17 15:28 16 10/07/17 13:42 36.4 C L 102 H 20 145/93 H 92 Intake & Output: Intake and Output Totals x24h 10/05/17 10/06/17 10/07/17 23:59 23:59 23:59 Intake Total 4450.000 2300 1500 Output Total 1890 1615 635 Balance 2560.000 685 865 - Lab Results Lab Results: 10/07/17 04:43 10/07/17 04:43 Other Lab Results: Lab Results x24hrs 10/07/17 10/07/17 Range/Units 04:43 04:43 WBC 9.1 (4.8-10.8) x10^3/uL RBC 3.36 L (4.20-5.40) 10^6/uL Hgb 8.5 L (12.0-16.0) g/dL Hct 27.6 L (37.0-47.0) % MCV 82.1 (81.0-99.0) fL MCH 25.4 L (27.0-31.0) pg MCHC 31.0 L (32.0-36.0) g/dL RDW 22.3 H (12.0-15.0) % Plt Count 407 (130-450) 10^3/uL MPV 6.9 L (7.9-10.8) fL Neut # 6.7 H (1.5-6.6) 10^3/uL Lymph # 1.4 L (1.5-3.5) 10^3/uL [place] # 0.6 (0.0-1.0) 10^3/uL Eos # 0.3 (0.0-0.7) 10^3/uL Baso # 0.1 (0.0-0.1) 10^3/uL Absolute Nucleated RBC 0.00 x10^3/uL Nucleated RBC % 0.0 /100WBC Manual Slide Review Indicated Platelet Estimate NORMAL (130-450,000) (NORMAL) Platelet Morphology NORMAL APPEARANCE (NORMAL) RBC Morph Micro Appear 1+ HYPOCHROMASIA (NORMAL) Sodium 134 L (135-145) mmol/L Potassium 4.6 (3.5-5.0) mmol/L Chloride 99 L (101-111) mmol/L Carbon Dioxide 32 (21-32) mmol/L Anion Gap 3.0 L (6-13) BUN 6 (6-20) mg/dL Creatinine 0.5 (0.4-1.0) mg/dL Estimated GFR (MDRD) 125 (>89) Glucose 110 H (70-100) mg/dL Calcium 8.1 L (8.5-10.3) mg/dL Total Bilirubin 0.4 (0.2-1.0) mg/dL AST < 10 L (10-42) IU/L ALT < 10 L (10-60) IU/L Alkaline Phosphatase 64 (42-121) IU/L Total Protein 5.0 L (6.7-8.2) g/dL Albumin 2.3 L (3.2-5.5) g/dL Globulin 2.7 (2.1-4.2) g/dL Albumin/Globulin Ratio 0.9 L (1.0-2.2) - Imaging Results Radiology Imaging: positive: Other (read by me.) Imaging Results Comments: CXR shows right pleural effusion. 2 view abdomen shows dilated small bowel with air fluid levels, small amount gas in colon; large air fluid level in stomach. - Current Medications Current Medications: Current Medications Generic Name Dose Route Start Last Admin Trade Name Freq PRN Reason Stop Dose Admin Albuterol/Ipratropium 3 ml 10/04/17 12:15 10/07/17 07:36 Duoneb INH 3 ml RTQID PRN Administration Shortness of Air/Wheezing Budesonide 0.5 mg 10/04/17 19:00 10/07/17 07:36 Pulmicort INH 0.5 mg RTBID MATTHEW Administration Enoxaparin Sodium 40 mg 10/04/17 09:00 10/07/17 09:07 Lovenox SUBQ 40 mg DAILY MATTHEW Administration Formoterol Fumarate 20 mcg 10/04/17 19:00 10/07/17 07:36 Perforomist INH 20 mcg RTBID MATTHEW Administration Ertapenem 1 gm/ Sodium 100 mls @ 200 mls/hr 10/03/17 23:14 10/06/17 21:36 Chloride IV Infused HS MATTHEW Infusion Acetaminophen 100 mls @ 400 mls/hr 10/04/17 08:00 10/07/17 15:34 Ofirmev IV Infused Q6H MATTHEW Infusion Morphine Sulfate/Sodium Chloride 50 mg 10/07/17 10:57 10/07/17 11:17 Morphine Food Crops Farm Hand (Use Food Crops Farm Hand Order Set) IV 50 mg BLUEPRINT ENGINEER PRN Administration PAIN Protocol Ondansetron HCl 4 mg 10/03/17 21:32 10/03/17 23:41 Zofran Inj IVP 4 mg Q6H PRN Administration Nausea / Vomiting Sodium Chloride 10 ml 10/04/17 01:00 10/07/17 07:52 Normal Saline Flush 0.9% IVP 10 ml 0100,0900,1700 MATTHEW Administration Sodium Chloride 10 ml 10/03/17 21:32 10/06/17 06:15 Normal Saline Flush 0.9% IVP 10 ml PRN PRN Administration NEEDED PER PROVIDER ORDERS Throat Lozenges 1 lozenge 10/04/17 03:08 10/07/17 15:12 Cepacol MM 1 lozenge Q2HR PRN Administration Throat pain - Physical Exam Wound/Incisions: positive: Healing well, No drainage, Drainage (300 serosanguinous/24 hours) General Appearance: positive: Moderate distress Eyes Bilateral: positive: Normal inspection, Conjunctivae nml, No scleral icterus ENT: positive: ENT inspection nml, Pharynx nml, No signs of dehydration Neck: positive: No JVD. negative: Lymphadenopathy (R), Lymphadenopathy (L) Respiratory: positive: Chest non-tender, Rhonchi (bibasilar rhonchi) Cardiovascular: positive: Regular rate & rhythm, No murmur, No gallop Abdomen: positive: No organomegaly, Tenderness (diffuse abd tenderness with voluntary guarding.), Guarding, Abnml bowel sounds (high pitched, tympanitic). negative: No distention (moderate distention) Skin: positive: Color nml, No rash, Warm, Dry. negative: Cyanosis Extremities: positive: No pedal edema. negative: Calf tenderness Neurologic/Psychiatric: positive: Oriented x3 Impression/Plan - Problem List Problem List: PO Day 4 s/p repair of incarcerated LIH with SBO, and GIFTY/BSO. Pt has deteriorated with findings c/w ileus; doubt recurrent SBO or intra abdominal abscess at this time. Plan: reinsert NG tube to suction, IV fluids, NPO except ice chips, pulmonary toilet; try to minimize use of narcotics, consult hospitalist service; recheck abd films, labs in AM; consider abd/pelvic CT tomorrow if not improved.
[2017-10-07] MEDS: D5.45NS W/20 MEQ KCL 1,000 ML IV SCH (16:17)
[2017-10-07] MEDS: PANTOPRAZOLE 40 MG VIAL IV SCH (16:47)
[2017-10-07] MEDS: ERTAPENEM 1 GM in SODIUM CHLORIDE 0.9% MINIBAG 100 ML IV SCH (20:13)
[2017-10-08] MEDS: SODIUM CHLORIDE FLUSH 0.9% 10 ML SYRINGE IVP SCH ×4 (00:25→23:46)
--- NOTE | 2017-10-08 00:59 | PROVIDER PROGRESS NOTE ---
Emr Trainer Note - Emr Trainer Note Emr Trainer Note: 10/08/17 00:57 RN asked me to evaluate rising BP over the last 2 days. No cp, no sob. O2 requirement has been the same since admission. RN reports pt. anxiety. She is NPO x for meds after surgery. On review of home meds, she is on coreg and lisinopril in the outpt setting. Not on those right now. Both meds resumed at this time.
[2017-10-08] MEDS: CARVEDILOL 12.5 MG TABLET PO SCH ×3 (01:13→20:23)
[2017-10-08] MEDS: ACETAMINOPHEN 1,000 MG/100 ML 100 ML IV SCH ×4 (02:18→20:10)
[2017-10-08] MEDS: D5.45NS W/20 MEQ KCL 1,000 ML IV SCH ×2 (04:06→16:07)
[2017-10-08 04:57] LABS: BASOPHILS # (AUTO) 0.1 10^3/uL (0.0-0.1); BASOPHILS % (AUTO) 0.9 %; EOSINOPHILS # (AUTO) 0.3 10^3/uL (0.0-0.7); EOSINOPHILS % (AUTO) 4.2 %; HGB - HEMOGLOBIN 8.5 g/dL (12.0-16.0); LYMPHOCYTES # (AUTO) 1.4 10^3/uL (1.5-3.5); LYMPHOCYTES % (AUTO) 16.8 %; MEAN CORPUSCULAR HEMOGLOBIN 25.1 pg (27.0-31.0); MEAN CORPUSCULAR HGB CONC 30.6 g/dL (32.0-36.0); MEAN CORPUSCULAR VOLUME 82.1 fL (81.0-99.0); MEAN PLATELET VOLUME 6.9 fL (7.9-10.8); MONOCYTES # (AUTO) 0.6 10^3/uL (0.0-1.0); MONOCYTES % (AUTO) 7.8 %; NEUTROPHILS # (AUTO) 5.7 10^3/uL (1.5-6.6); NEUTROPHILS % (AUTO) 70.3 %; PLT - PLATELET COUNT 455 10^3/uL (130-450); RED BLOOD COUNT 3.38 10^6/uL (4.20-5.40); RED CELL DISTRIBUTION WIDTH 22.1 % (12.0-15.0); WHITE BLOOD COUNT 8.1 x10^3/uL (4.8-10.8)
[2017-10-08 04:59] LABS: ALBUMIN 2.2 g/dL (3.2-5.5); ALBUMIN/GLOBULIN RATIO 0.9 (1.0-2.2); ALKALINE PHOSPHATASE 58 IU/L (42-121); ALT ALANINE AMINOTRANSFERASE < 10 IU/L (10-60); AST ASPARTATE AMINOTRANSFERASE 11 IU/L (10-42); BILIRUBIN,TOTAL 0.4 mg/dL (0.2-1.0); BUN - BLOOD UREA NITROGEN 5 mg/dL (6-20); CALCIUM 7.9 mg/dL (8.5-10.3); CARBON DIOXIDE - CO2 31 mmol/L (21-32); CHLORIDE 96 mmol/L (101-111); CREATININE 0.4 mg/dL (0.4-1.0); GFR - MDRD 161 (>89); GLUCOSE 96 mg/dL (70-100); SODIUM 133 mmol/L (135-145); TOTAL PROTEIN 4.6 g/dL (6.7-8.2)
[2017-10-08 05:28] LABS: PLATELET ESTIMATE, MANUAL INCREASED (>450,000) (NORMAL); PLATELET MORPHOLOGY NORMAL APPEARANCE (NORMAL)
[2017-10-08] MEDS: SODIUM CHLORIDE FLUSH 0.9% 10 ML SYRINGE IVP PRN (06:29)
[2017-10-08] MEDS: PANTOPRAZOLE 40 MG VIAL IV SCH (06:29)
[2017-10-08] MEDS: IPRATROPIUM/ALBUTEROL 3 ML NEB INH PRN ×4 (08:16→20:39)
[2017-10-08] MEDS: BUDESONIDE 0.5 MG/2 ML NEB INH SCH ×2 (08:16→20:39)
[2017-10-08] MEDS: FORMOTEROL FUMARATE NEB 20 MCG/2 ML INH SCH ×2 (08:16→20:39)
[2017-10-08] MEDS: LISINOPRIL 20 MG TABLET PO SCH (08:39)
[2017-10-08] MEDS: ENOXAPARIN 40 MG/0.4 ML SYRINGE SUBQ SCH (08:39)
--- NOTE | 2017-10-08 09:42 | PROVIDER PROGRESS NOTE ---
Subjective - General Admit Date: 10/03/17 Procedure Date: 10/03/17 Post Op Days: 5 Procedure Performed: Exp lap with reduction hernia, repair hernia, GIFTY&BSO, drain, liver bx - Review of Systems Wound/Incisions: positive: Healing well (wound with out erythema or swelling. savi in tact), No drainage, Drainage (300 serosanguinous/24 hours) Drain Type: 19 Fr Pranay Drain Output Description: serosanguinous Approximate mls Output: 170 mL/24 hrs General: positive: No symptoms (Pt wants to walk today), Weakness (generlized), Other (c/o worsening abdominal pain and nausea; no flatus or stool since surgery ) HEENT: positive: No symptoms, Other (Feels as if something is stuck in her throat like phlegm. She refuses to cough and deep breathe because of wound pain.) Pulmonary: positive: Cough (Loose cough), Sputum. negative: Shortness of breath , Pleuritic chest pain, Hemoptysis, Wheezing Cardiovascular: positive: No symptoms, Other (Denies chest pain or irregular beat) Gastrointestinal: positive: Nausea, Abdominal pain (generalized, worsening). negative: Flatus Genitourinary: positive: No symptoms (Denies vaginal bleeding. States she is urinating.). negative: Flank pain Musculoskeletal: positive: No symptoms Skin: positive: No symptoms Psychiatric: positive: No symptoms Objective - Patient Data Reviewed Vital Signs: Yes Vital Signs: Vital Signs x48h Temp Pulse Pulse Pulse Resp BP Pulse Ox 10/08/17 08:16 79 18 10/08/17 08:08 36.4 C L 88 20 139/99 H 96 10/08/17 06:34 16 10/08/17 04:52 36.3 C L 93 20 156/99 H 98 10/08/17 02:30 16 10/08/17 02:25 98 151/94 H Weight: Weight 10/06/17 10/07/17 10/08/17 23:59 23:59 23:59 Weight (kg) 53.977 kg 60 kg Intake & Output: Intake and Output Totals x24h 10/06/17 10/07/17 10/08/17 23:59 23:59 23:59 Intake Total 2300 1900 1214.718 Output Total 1615 1566 1070 Balance 685 334 144.718 - Lab Results Lab Results: 10/08/17 04:25 10/08/17 04:25 Other Lab Results: Lab Results x24hrs 10/08/17 10/08/17 Range/Units 04:25 04:25 WBC 8.1 (4.8-10.8) x10^3/uL RBC 3.38 L (4.20-5.40) 10^6/uL Hgb 8.5 L (12.0-16.0) g/dL Hct 27.8 L (37.0-47.0) % MCV 82.1 (81.0-99.0) fL MCH 25.1 L (27.0-31.0) pg MCHC 30.6 L (32.0-36.0) g/dL RDW 22.1 H (12.0-15.0) % Plt Count 455 H (130-450) 10^3/uL MPV 6.9 L (7.9-10.8) fL Neut # 5.7 (1.5-6.6) 10^3/uL Lymph # 1.4 L (1.5-3.5) 10^3/uL [place] # 0.6 (0.0-1.0) 10^3/uL Eos # 0.3 (0.0-0.7) 10^3/uL Baso # 0.1 (0.0-0.1) 10^3/uL Absolute Nucleated RBC 0.00 x10^3/uL Nucleated RBC % 0.0 /100WBC Manual Slide Review Indicated Platelet Estimate INCREASED (>450,000) (NORMAL) Platelet Morphology NORMAL APPEARANCE (NORMAL) RBC Morph Micro Appear 1+ MICROCYTOSIS (NORMAL) Sodium 133 L (135-145) mmol/L Potassium 4.2 (3.5-5.0) mmol/L Chloride 96 L (101-111) mmol/L Carbon Dioxide 31 (21-32) mmol/L Anion Gap 6.0 (6-13) BUN 5 L (6-20) mg/dL Creatinine 0.4 (0.4-1.0) mg/dL Estimated GFR (MDRD) 161 (>89) Glucose 96 (70-100) mg/dL Calcium 7.9 L (8.5-10.3) mg/dL Total Bilirubin 0.4 (0.2-1.0) mg/dL AST 11 (10-42) IU/L ALT < 10 L (10-60) IU/L Alkaline Phosphatase 58 (42-121) IU/L Total Protein 4.6 L (6.7-8.2) g/dL Albumin 2.2 L (3.2-5.5) g/dL Globulin 2.4 (2.1-4.2) g/dL Albumin/Globulin Ratio 0.9 L (1.0-2.2) - Current Medications Current Medications: Current Medications Generic Name Dose Route Start Last Admin Trade Name Freq PRN Reason Stop Dose Admin Albuterol/Ipratropium 3 ml 10/04/17 12:15 10/08/17 08:16 Duoneb INH 3 ml RTQID PRN Administration Shortness of Air/Wheezing Budesonide 0.5 mg 10/04/17 19:00 10/08/17 08:16 Pulmicort INH 0.5 mg RTBID MATTHEW Administration Carvedilol 12.5 mg 10/08/17 01:00 10/08/17 08:39 Coreg PO 12.5 mg BID MATTHEW Administration Enoxaparin Sodium 40 mg 10/04/17 09:00 10/08/17 08:39 Lovenox SUBQ 40 mg DAILY MATTHEW Administration Formoterol Fumarate 20 mcg 10/04/17 19:00 10/08/17 08:16 Perforomist INH 20 mcg RTBID MATTHEW Administration Ertapenem 1 gm/ Sodium 100 mls @ 200 mls/hr 10/03/17 23:14 10/07/17 20:52 Chloride IV Infused HS MATTHEW Infusion Acetaminophen 100 mls @ 400 mls/hr 10/04/17 08:00 10/08/17 08:52 Ofirmev IV Infused Q6H MATTHEW Infusion Potassium Chloride/Dextrose/Sod Cl 1,000 mls @ 83.333 mls/hr 10/07/17 16:00 10/08/17 04:06 D5.45ns W/20 Meq Kcl IV 83.333 mls/hr .Q12H MATTHEW Administration Lisinopril 40 mg 10/08/17 09:00 10/08/17 08:39 Zestril PO 40 mg DAILY MATTHEW Administration Morphine Sulfate/Sodium Chloride 50 mg 10/07/17 10:57 10/07/17 11:17 Morphine Technical Agronomist (Use Technical Agronomist Order Set) IV 50 mg CARBON DIOXIDE OPERATOR PRN Administration PAIN Protocol Ondansetron HCl 4 mg 10/03/17 21:32 10/03/17 23:41 Zofran Inj IVP 4 mg Q6H PRN Administration Nausea / Vomiting Pantoprazole Sodium 40 mg 10/07/17 17:00 10/08/17 06:29 Protonix IV 40 mg QDAC MATTHEW Administration Sodium Chloride 10 ml 10/04/17 01:00 10/08/17 06:29 Normal Saline Flush 0.9% IVP 10 ml 0100,0900,1700 MATTHEW Administration Sodium Chloride 10 ml 10/03/17 21:32 10/08/17 06:29 Normal Saline Flush 0.9% IVP 10 ml PRN PRN Administration NEEDED PER PROVIDER ORDERS Throat Lozenges 1 lozenge 10/04/17 03:08 10/07/17 15:12 Cepacol MM 1 lozenge Q2HR PRN Administration Throat pain - Physical Exam Wound/Incisions: positive: Healing well, No drainage. negative: Erythema General Appearance: positive: Alert, Mild distress (Pt noted to have pain 6/10. encouraged to use CARBON DIOXIDE OPERATOR) Respiratory: positive: Chest non-tender, No respiratory distress, Rhonchi ( thruout) Cardiovascular: positive: Regular rate & rhythm, No murmur Abdomen: negative: Nml bowel sounds, No distention Back: negative: CVA tenderness (R), CVA tenderness (L) Skin: positive: Color nml, No rash, Warm, Dry Extremities: negative: Calf tenderness, Rosie's sign/cords Neurologic/Psychiatric: positive: Oriented x3 Impression/Plan - Problem List Problem List: POD # 5 Post op illious: distension responded to NG tube. NG output is minimal. Consider clamping and see how pt tolerates. Acute abdomen pending Anemia: Pt has a stable anemia at 8 gms Hgb Nutrition: Pt has had no GI intake since surgery. Consider hyperal Productive cough: Chest Physical therapy. S/P GIFTY with BSO: Called Path, Pending.
--- NOTE | 2017-10-08 10:30 | XRAY Report ---
ACUTE ABDOMEN SERIES: 10/08/2017 CLINICAL INDICATION: Followup ileus/small bowel obstruction. COMPARISON: Two view abdomen 10/07/2017, chest x-ray 10/07/2017. FINDINGS: Supine and upright views of the abdomen and a frontal view of the chest were obtained. The cardiac silhouette remains enlarged. COPD is stable. Small effusions and basilar atelectasis are present. No pneumothorax is appreciated. Small bowel dilatation appears stable from previous. There has been some movement of the oral contrast in the right lower quadrant into the ascending colon, but there appears to be oral contrast within the KHOI drain bulb, suggestive of contrast extravasation. Vascular calcifications and surgical clips are again noted. IMPRESSION: PERSISTENT SMALL BOWEL DILATATION. SOME MOVEMENT OF ORAL CONTRAST IN THE RIGHT LOWER QUADRANT, BUT THERE DOES APPEAR TO BE CONTRAST WITHIN THE KHOI DRAIN BULB, SUGGESTING BOWEL LEAK. SMALL EFFUSIONS AND BIBASILAR ATELECTASIS. NASOGASTRIC TUBE TERMINATING IN THE STOMACH. TD: 10/08/2017 10:28
--- NOTE | 2017-10-08 11:13 | PROVIDER PROGRESS NOTE ---
Subjective - General Admit Date: 10/03/17 Procedure Date: 10/03/17 Post Op Days: 6 Procedure Performed: Exp lap with reduction hernia, repair hernia, GIFTY&BSO, drain, liver bx - Review of Systems Wound/Incisions: positive: Healing well, No drainage. negative: Erythema Drain Type: 19 Fr Pranay Drain Output Description: mostly serous with some clot Approximate mls Output: 30 today General: positive: No symptoms (Pt wants to walk today), Weakness (generlized), Other (c/o worsening abdominal pain and nausea; no flatus or stool since surgery ) HEENT: positive: No symptoms Pulmonary: positive: Cough (Loose cough), Sputum. negative: Shortness of breath , Pleuritic chest pain, Hemoptysis, Wheezing Cardiovascular: positive: No symptoms, Other (Denies chest pain or irregular beat) Gastrointestinal: positive: Other (Still not farting and no bowel movement. No nausea-vomiting.). negative: Nausea, Abdominal pain (generalized, worsening), Flatus Genitourinary: positive: No symptoms (Denies vaginal bleeding. States she is urinating.). negative: Flank pain Musculoskeletal: positive: No symptoms Skin: positive: No symptoms Psychiatric: positive: No symptoms Objective - Patient Data Reviewed Vital Signs: Yes Vital Signs: Vital Signs x48h Temp Pulse Pulse Pulse Resp BP Pulse Ox 10/08/17 08:16 79 18 10/08/17 08:08 36.4 C L 88 20 139/99 H 96 10/08/17 06:34 16 10/08/17 04:52 36.3 C L 93 20 156/99 H 98 Weight: Weight 10/06/17 10/07/17 10/08/17 23:59 23:59 23:59 Weight (kg) 53.977 kg 60 kg Intake & Output: Intake and Output Totals x24h 10/06/17 10/07/17 10/08/17 23:59 23:59 23:59 Intake Total 2300 1900 1214.718 Output Total 1615 1566 1070 Balance 685 334 144.718 - Lab Results Lab Results: 10/08/17 04:25 10/08/17 04:25 Other Lab Results: Lab Results x24hrs 10/08/17 10/08/17 Range/Units 04:25 04:25 WBC 8.1 (4.8-10.8) x10^3/uL RBC 3.38 L (4.20-5.40) 10^6/uL Hgb 8.5 L (12.0-16.0) g/dL Hct 27.8 L (37.0-47.0) % MCV 82.1 (81.0-99.0) fL MCH 25.1 L (27.0-31.0) pg MCHC 30.6 L (32.0-36.0) g/dL RDW 22.1 H (12.0-15.0) % Plt Count 455 H (130-450) 10^3/uL MPV 6.9 L (7.9-10.8) fL Neut # 5.7 (1.5-6.6) 10^3/uL Lymph # 1.4 L (1.5-3.5) 10^3/uL [place] # 0.6 (0.0-1.0) 10^3/uL Eos # 0.3 (0.0-0.7) 10^3/uL Baso # 0.1 (0.0-0.1) 10^3/uL Absolute Nucleated RBC 0.00 x10^3/uL Nucleated RBC % 0.0 /100WBC Manual Slide Review Indicated Platelet Estimate INCREASED (>450,000) (NORMAL) Platelet Morphology NORMAL APPEARANCE (NORMAL) RBC Morph Micro Appear 1+ MICROCYTOSIS (NORMAL) Sodium 133 L (135-145) mmol/L Potassium 4.2 (3.5-5.0) mmol/L Chloride 96 L (101-111) mmol/L Carbon Dioxide 31 (21-32) mmol/L Anion Gap 6.0 (6-13) BUN 5 L (6-20) mg/dL Creatinine 0.4 (0.4-1.0) mg/dL Estimated GFR (MDRD) 161 (>89) Glucose 96 (70-100) mg/dL Calcium 7.9 L (8.5-10.3) mg/dL Total Bilirubin 0.4 (0.2-1.0) mg/dL AST 11 (10-42) IU/L ALT < 10 L (10-60) IU/L Alkaline Phosphatase 58 (42-121) IU/L Total Protein 4.6 L (6.7-8.2) g/dL Albumin 2.2 L (3.2-5.5) g/dL Globulin 2.4 (2.1-4.2) g/dL Albumin/Globulin Ratio 0.9 L (1.0-2.2) - Current Medications Current Medications: Current Medications Generic Name Dose Route Start Last Admin Trade Name Freq PRN Reason Stop Dose Admin Albuterol/Ipratropium 3 ml 10/04/17 12:15 10/08/17 08:16 Duoneb INH 3 ml RTQID PRN Administration Shortness of Air/Wheezing Budesonide 0.5 mg 10/04/17 19:00 10/08/17 08:16 Pulmicort INH 0.5 mg RTBID MATTHEW Administration Carvedilol 12.5 mg 10/08/17 01:00 10/08/17 08:39 Coreg PO 12.5 mg BID MATTHEW Administration Enoxaparin Sodium 40 mg 10/04/17 09:00 10/08/17 08:39 Lovenox SUBQ 40 mg DAILY MATTHEW Administration Formoterol Fumarate 20 mcg 10/04/17 19:00 10/08/17 08:16 Perforomist INH 20 mcg RTBID MATTHEW Administration Ertapenem 1 gm/ Sodium 100 mls @ 200 mls/hr 10/03/17 23:14 10/07/17 20:52 Chloride IV Infused HS MATTHEW Infusion Acetaminophen 100 mls @ 400 mls/hr 10/04/17 08:00 10/08/17 08:52 Ofirmev IV Infused Q6H MATTHEW Infusion Potassium Chloride/Dextrose/Sod Cl 1,000 mls @ 83.333 mls/hr 10/07/17 16:00 10/08/17 04:06 D5.45ns W/20 Meq Kcl IV 83.333 mls/hr .Q12H MATTHEW Administration Lisinopril 40 mg 10/08/17 09:00 10/08/17 08:39 Zestril PO 40 mg DAILY MATTHEW Administration Morphine Sulfate/Sodium Chloride 50 mg 10/07/17 10:57 10/07/17 11:17 Morphine Employment Director (Use Employment Director Order Set) IV 50 mg EDGE GLUE MACHINE TENDER PRN Administration PAIN Protocol Ondansetron HCl 4 mg 10/03/17 21:32 10/03/17 23:41 Zofran Inj IVP 4 mg Q6H PRN Administration Nausea / Vomiting Pantoprazole Sodium 40 mg 10/07/17 17:00 10/08/17 06:29 Protonix IV 40 mg QDAC MATTHEW Administration Sodium Chloride 10 ml 10/04/17 01:00 10/08/17 06:29 Normal Saline Flush 0.9% IVP 10 ml 0100,0900,1700 MATTHEW Administration Sodium Chloride 10 ml 10/03/17 21:32 10/08/17 06:29 Normal Saline Flush 0.9% IVP 10 ml PRN PRN Administration NEEDED PER PROVIDER ORDERS Throat Lozenges 1 lozenge 10/04/17 03:08 10/07/17 15:12 Cepacol MM 1 lozenge Q2HR PRN Administration Throat pain - Physical Exam Wound/Incisions: positive: Healing well (Ting in place.) General Appearance: positive: No acute distress Eyes Bilateral: positive: No lid inflammation, Conjunctivae nml, No scleral icterus ENT: positive: No signs of dehydration Neck: positive: Trachea midline Respiratory: positive: Chest non-tender, No respiratory distress, Wheezes, Rhonchi (Wheezes and ronchi are markedly improved.) Cardiovascular: positive: Regular rate & rhythm Abdomen: positive: Non-tender (Minimal incisional tenderness - patient is not using the EDGE GLUE MACHINE TENDER.) Skin: positive: Color nml Extremities: positive: Non-tender, Nml appearance Neurologic/Psychiatric: positive: Oriented x3 Impression/Plan - Problem List Problem List: D5 s/p Exploratory laparotomy, reduction of left inguinal Rocha's hernia, closure of hernia defect, total abdominal hysterectomy and bilateral salpingo- oophorectomy, placement of drain, liver biopsy 1) FEN Tolerating ice chips but NG is in so not a fair assessment. Expect bowel function to return shortly as bowel sounds are good. 2) ID D5/7 of Invanz - no indication of infection but interestingly there is a question of whether there is leak of bowel contents into drain. Patient's clinical picture, lab picture and the drain contents argue against this. 3) DVT Continued prophylaxis with teds and Venodyne's. The patient is on Levaquin as well. 4) Pathology No back yet. 5) Activity Markedly improved. Motivated - walking more. 6) GI Awaiting bowel function to return in order to feed.
[2017-10-08] MEDS: KETOROLAC 15 MG/ML VIAL IVP PRN (20:10)
[2017-10-08] MEDS: ERTAPENEM 1 GM in SODIUM CHLORIDE 0.9% MINIBAG 100 ML IV SCH (20:27)
[2017-10-09] MEDS: ACETAMINOPHEN 1,000 MG/100 ML 100 ML IV SCH ×3 (02:21→13:53)
[2017-10-09] MEDS: D5.45NS W/20 MEQ KCL 1,000 ML IV SCH ×3 (05:00→18:52)
[2017-10-09] MEDS: KETOROLAC 15 MG/ML VIAL IVP PRN ×2 (05:42→16:59)
[2017-10-09] MEDS: PANTOPRAZOLE 40 MG VIAL IV SCH (06:18)
[2017-10-09] MEDS: SODIUM CHLORIDE FLUSH 0.9% 10 ML SYRINGE IVP PRN (06:18)
[2017-10-09] MEDS: BUDESONIDE 0.5 MG/2 ML NEB INH SCH ×2 (07:58→20:55)
[2017-10-09] MEDS: FORMOTEROL FUMARATE NEB 20 MCG/2 ML INH SCH ×2 (07:58→21:06)
[2017-10-09] MEDS: IPRATROPIUM/ALBUTEROL 3 ML NEB INH PRN ×2 (07:58→15:11)
--- NOTE | 2017-10-09 08:44 | PROVIDER PROGRESS NOTE ---
Subjective - General Admit Date: 10/03/17 Procedure Date: 10/03/17 Post Op Days: 6 Procedure Performed: Exp lap with reduction hernia, repair hernia, GIFTY&BSO, drain, liver bx - Review of Systems Wound/Incisions: positive: Healing well, No drainage. negative: Erythema Drain Type: 19 Fr Pranay Drain Output Description: serosanguinous Approximate mls Output: 30 mL/24 hrs General: positive: No symptoms (Pt ambulating well), Weakness (generlized), Fatigue, Other (c/o worsening abdominal pain and nausea; no flatus or stool since surgery). negative: Fever HEENT: positive: No symptoms, Other (Feels as if something is stuck in her throat like phlegm. She refuses to cough and deep breathe because of wound pain.). negative: Headaches Pulmonary: positive: Cough (Loose cough pt using incentive), Sputum (copughing out CPT ingaged). negative: Shortness of breath, Pleuritic chest pain, Hemoptysis, Wheezing Cardiovascular: positive: No symptoms, Other (Denies chest pain or irregular beat). negative: Chest pain, Palpitations Gastrointestinal: positive: Nausea, Abdominal pain (generalized, worsening). negative: Flatus Genitourinary: positive: No symptoms (Denies vaginal bleeding. States she is urinating.). negative: Flank pain Musculoskeletal: positive: No symptoms Skin: positive: No symptoms Psychiatric: positive: No symptoms Objective - Patient Data Reviewed Vital Signs: Yes Vital Signs: Vital Signs x48h Temp Pulse Pulse Pulse Resp BP Pulse Ox 10/09/17 08:01 77 20 10/09/17 05:21 36.5 C 76 73 18 161/92 H 94 10/09/17 05:16 17 Weight: Weight 10/07/17 10/08/17 10/09/17 23:59 23:59 23:59 Weight (kg) 53.977 kg 60 kg 63 kg Intake & Output: Intake and Output Totals x24h 10/07/17 10/08/17 10/09/17 23:59 23:59 23:59 Intake Total 1900 2704.718 1235 Output Total 1566 2755 955 Balance 334 -50.282 280 - Lab Results Lab Results: 10/08/17 04:25 10/08/17 04:25 - Current Medications Current Medications: Current Medications Generic Name Dose Route Start Last Admin Trade Name Freq PRN Reason Stop Dose Admin Albuterol/Ipratropium 3 ml 10/04/17 12:15 10/09/17 07:58 Duoneb INH 3 ml RTQID PRN Administration Shortness of Air/Wheezing Budesonide 0.5 mg 10/04/17 19:00 10/09/17 07:58 Pulmicort INH 0.5 mg RTBID MATTHEW Administration Carvedilol 12.5 mg 10/08/17 01:00 10/08/17 20:23 Coreg PO 12.5 mg BID MATTHEW Administration Enoxaparin Sodium 40 mg 10/04/17 09:00 10/08/17 08:39 Lovenox SUBQ 40 mg DAILY MATTHEW Administration Formoterol Fumarate 20 mcg 10/04/17 19:00 10/09/17 07:58 Perforomist INH 20 mcg RTBID MATTHEW Administration Ertapenem 1 gm/ Sodium 100 mls @ 200 mls/hr 10/03/17 23:14 10/08/17 21:01 Chloride IV Infused HS MATTHEW Infusion Acetaminophen 100 mls @ 400 mls/hr 10/04/17 08:00 10/09/17 03:52 Ofirmev IV Infused Q6H MATTHEW Infusion Potassium Chloride/Dextrose/Sod Cl 1,000 mls @ 83.333 mls/hr 10/07/17 16:00 10/09/17 05:00 D5.45ns W/20 Meq Kcl IV 83.333 mls/hr .Q12H MATTHEW Administration Ketorolac Tromethamine 15 mg 10/07/17 16:13 10/09/17 05:42 Toradol Inj IVP 10/12/17 16:12 15 mg Q6HR PRN Administration PAIN Lisinopril 40 mg 10/08/17 09:00 10/08/17 08:39 Zestril PO 40 mg DAILY MATTHEW Administration Morphine Sulfate/Sodium Chloride 50 mg 10/07/17 10:57 10/07/17 11:17 Morphine Tool Maintenance Technician (Use Tool Maintenance Technician Order Set) IV 50 mg INTERFACE DEVELOPER PRN Administration PAIN Protocol Ondansetron HCl 4 mg 10/03/17 21:32 10/03/17 23:41 Zofran Inj IVP 4 mg Q6H PRN Administration Nausea / Vomiting Pantoprazole Sodium 40 mg 10/07/17 17:00 10/09/17 06:18 Protonix IV 40 mg QDAC MATTHEW Administration Sodium Chloride 10 ml 10/04/17 01:00 10/08/17 23:46 Normal Saline Flush 0.9% IVP Not Given 0100,0900,1700 MATTHEW Sodium Chloride 10 ml 10/03/17 21:32 10/09/17 06:18 Normal Saline Flush 0.9% IVP 10 ml PRN PRN Administration NEEDED PER PROVIDER ORDERS Throat Lozenges 1 lozenge 10/04/17 03:08 10/07/17 15:12 Cepacol MM 1 lozenge Q2HR PRN Administration Throat pain - Physical Exam Wound/Incisions: positive: Healing well, No drainage. negative: Erythema General Appearance: positive: No acute distress, Alert Respiratory: positive: Chest non-tender, No respiratory distress, Rhonchi Cardiovascular: positive: Regular rate & rhythm Abdomen: positive: Nml bowel sounds, Tenderness. negative: Rebound Back: positive: Nml inspection. negative: CVA tenderness (R), CVA tenderness (L ) Skin: positive: Color nml, No rash, Warm, Dry Extremities: negative: Calf tenderness, Rosie's sign/cords Neurologic/Psychiatric: positive: Oriented x3 Impression/Plan - Problem List Problem List: improved BS. NG still draining. Path returned. 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 Margins clear. Extending into the Cx. Pt not informed yet as she needs to focus on getting well.
[2017-10-09] MEDS: LISINOPRIL 20 MG TABLET PO SCH (08:48)
[2017-10-09] MEDS: ENOXAPARIN 40 MG/0.4 ML SYRINGE SUBQ SCH (08:48)
[2017-10-09] MEDS: SODIUM CHLORIDE FLUSH 0.9% 10 ML SYRINGE IVP SCH ×2 (08:49→18:43)
[2017-10-09] MEDS: CARVEDILOL 12.5 MG TABLET PO SCH ×2 (08:49→21:25)
--- NOTE | 2017-10-09 14:06 | PROVIDER PROGRESS NOTE ---
Subjective - General Admit Date: 10/03/17 Procedure Date: 10/03/17 Post Op Days: 6 Procedure Performed: Exp lap with reduction hernia, repair hernia, GIFTY&BSO, drain, liver bx - Review of Systems Wound/Incisions: positive: Healing well, No drainage. negative: Erythema Drain Type: 19 Fr Pranay Drain Output Description: serosanguinous with some clot Approximate mls Output: 30 mL/24 hrs General: positive: No symptoms (Pt ambulating well). negative: Fever HEENT: positive: No symptoms, Other. negative: Headaches Pulmonary: positive: Cough (Loose cough pt using incentive), Sputum (copughing out CPT ingaged). negative: Shortness of breath, Pleuritic chest pain, Hemoptysis, Wheezing Cardiovascular: positive: No symptoms, Other (Denies chest pain or irregular beat). negative: Chest pain, Palpitations Gastrointestinal: positive: Flatus Genitourinary: positive: No symptoms (Denies vaginal bleeding. States she is urinating.). negative: Flank pain Musculoskeletal: positive: No symptoms Skin: positive: No symptoms Psychiatric: positive: No symptoms Objective - Patient Data Reviewed Vital Signs: Yes Vital Signs: Vital Signs x48h Temp Pulse Pulse Resp BP Pulse Ox 10/09/17 13:30 81 18 155/91 H 93 10/09/17 11:00 16 10/09/17 08:49 36.9 C 78 18 149/97 H 91 L 10/09/17 08:01 77 20 Weight: Weight 10/07/17 10/08/17 10/09/17 23:59 23:59 23:59 Weight (kg) 53.977 kg 60 kg 63 kg Intake & Output: Intake and Output Totals x24h 10/07/17 10/08/17 10/09/17 23:59 23:59 23:59 Intake Total 1900 2704.718 1355 Output Total 1566 2755 1205 Balance 334 -50.282 150 - Lab Results Lab Results: 10/08/17 04:25 10/08/17 04:25 - Current Medications Current Medications: Current Medications Generic Name Dose Route Start Last Admin Trade Name Freq PRN Reason Stop Dose Admin Albuterol/Ipratropium 3 ml 10/04/17 12:15 10/09/17 07:58 Duoneb INH 3 ml RTQID PRN Administration Shortness of Air/Wheezing Budesonide 0.5 mg 10/04/17 19:00 10/09/17 07:58 Pulmicort INH 0.5 mg RTBID MATTHEW Administration Carvedilol 12.5 mg 10/08/17 01:00 10/09/17 08:49 Coreg PO 12.5 mg BID MATTHEW Administration Enoxaparin Sodium 40 mg 10/04/17 09:00 10/09/17 08:48 Lovenox SUBQ 40 mg DAILY MATTHEW Administration Formoterol Fumarate 20 mcg 10/04/17 19:00 10/09/17 07:58 Perforomist INH 20 mcg RTBID MATTHEW Administration Ertapenem 1 gm/ Sodium 100 mls @ 200 mls/hr 10/03/17 23:14 10/08/17 21:01 Chloride IV Infused HS MATTHEW Infusion Acetaminophen 100 mls @ 400 mls/hr 10/04/17 08:00 10/09/17 13:53 Ofirmev IV 400 mls/hr Q6H MATTHEW Administration Ketorolac Tromethamine 15 mg 10/07/17 16:13 10/09/17 05:42 Toradol Inj IVP 10/12/17 16:12 15 mg Q6HR PRN Administration PAIN Lisinopril 40 mg 10/08/17 09:00 10/09/17 08:48 Zestril PO 40 mg DAILY MATTHEW Administration Morphine Sulfate/Sodium Chloride 50 mg 10/07/17 10:57 10/07/17 11:17 Morphine School Community Relations Coordinator (Use School Community Relations Coordinator Order Set) IV 50 mg CHIEF CUSTOMER OFFICER PRN Administration PAIN Protocol Ondansetron HCl 4 mg 10/03/17 21:32 10/03/17 23:41 Zofran Inj IVP 4 mg Q6H PRN Administration Nausea / Vomiting Pantoprazole Sodium 40 mg 10/07/17 17:00 10/09/17 06:18 Protonix IV 40 mg QDAC MATTHEW Administration Sodium Chloride 10 ml 10/04/17 01:00 10/09/17 08:49 Normal Saline Flush 0.9% IVP Not Given 0100,0900,1700 MATTHEW Sodium Chloride 10 ml 10/03/17 21:32 10/09/17 06:18 Normal Saline Flush 0.9% IVP 10 ml PRN PRN Administration NEEDED PER PROVIDER ORDERS Throat Lozenges 1 lozenge 10/04/17 03:08 10/07/17 15:12 Cepacol MM 1 lozenge Q2HR PRN Administration Throat pain - Physical Exam Wound/Incisions: positive: Healing well ([place] in place.) General Appearance: positive: No acute distress Eyes Bilateral: positive: No lid inflammation, Conjunctivae nml, No scleral icterus ENT: positive: No signs of dehydration Neck: positive: Trachea midline Respiratory: positive: Wheezes (Markedly improved.), Rales (Markedly improved.) Cardiovascular: positive: Regular rate & rhythm Abdomen: positive: Nml bowel sounds, Tenderness (Mild incisional tenderness.), Other (Passing gas without difficulty - no BM yet.) Skin: positive: Color nml (Still a bit "pasty.") Extremities: positive: Nml appearance Neurologic/Psychiatric: positive: Oriented x3 Impression/Plan - Problem List Problem List: D6 s/p reduction of LEFT [place] hernia, herniorrhaphy, GIFTY&BRO Decreased IVF. Pulled NG. Started diet. D/C CHIEF CUSTOMER OFFICER. D/C IV acetaminophen. Start [place] for pain. Take out every other staple. OK to shower. Check labs and abdominal xray in AM to see if I can make sense of dye in drain. If no dye in drain and patient looks good then consider removing drain in AM and switching to oral antibiotics.
[2017-10-09] MEDS: HYDROcod/ACETAM 5/325 MG TABLET PO PRN ×2 (16:59→21:25)
[2017-10-09] MEDS: ERTAPENEM 1 GM in SODIUM CHLORIDE 0.9% MINIBAG 100 ML IV SCH (21:25)
[2017-10-10] MEDS: KETOROLAC 15 MG/ML VIAL IVP PRN ×3 (00:42→13:36)
[2017-10-10] MEDS: HYDROcod/ACETAM 5/325 MG TABLET PO PRN ×4 (04:40→21:22)
[2017-10-10 04:45] LABS: BASOPHILS # (AUTO) 0.1 10^3/uL (0.0-0.1); BASOPHILS % (AUTO) 1.5 %; EOSINOPHILS # (AUTO) 0.2 10^3/uL (0.0-0.7); EOSINOPHILS % (AUTO) 3.2 %; HGB - HEMOGLOBIN 8.8 g/dL (12.0-16.0); LYMPHOCYTES # (AUTO) 1.4 10^3/uL (1.5-3.5); LYMPHOCYTES % (AUTO) 19.3 %; MEAN CORPUSCULAR HEMOGLOBIN 25.7 pg (27.0-31.0); MEAN CORPUSCULAR VOLUME 80.3 fL (81.0-99.0); MEAN PLATELET VOLUME 6.9 fL (7.9-10.8); MONOCYTES # (AUTO) 0.7 10^3/uL (0.0-1.0); MONOCYTES % (AUTO) 9.2 %; NEUTROPHILS # (AUTO) 4.8 10^3/uL (1.5-6.6); NEUTROPHILS % (AUTO) 66.8 %; PLT - PLATELET COUNT 480 10^3/uL (130-450); RED BLOOD COUNT 3.43 10^6/uL (4.20-5.40); RED CELL DISTRIBUTION WIDTH 22.9 % (12.0-15.0); WHITE BLOOD COUNT 7.2 x10^3/uL (4.8-10.8)
[2017-10-10 04:52] LABS: ALBUMIN 2.1 g/dL (3.2-5.5); ALKALINE PHOSPHATASE 63 IU/L (42-121); ALT ALANINE AMINOTRANSFERASE < 10 IU/L (10-60); AST ASPARTATE AMINOTRANSFERASE 12 IU/L (10-42); BILIRUBIN,TOTAL 0.2 mg/dL (0.2-1.0); BUN - BLOOD UREA NITROGEN 12 mg/dL (6-20); CALCIUM 7.9 mg/dL (8.5-10.3); CARBON DIOXIDE - CO2 31 mmol/L (21-32); CHLORIDE 98 mmol/L (101-111); CREATININE 0.6 mg/dL (0.4-1.0); GFR - MDRD 101 (>89); GLUCOSE 114 mg/dL (70-100); SODIUM 134 mmol/L (135-145); TOTAL PROTEIN 4.3 g/dL (6.7-8.2)
[2017-10-10] MEDS: IPRATROPIUM/ALBUTEROL 3 ML NEB INH PRN ×4 (04:55→18:10)
[2017-10-10] MEDS: SODIUM CHLORIDE FLUSH 0.9% 10 ML SYRINGE IVP SCH ×3 (05:28→17:06)
[2017-10-10 05:58] LABS: PLATELET ESTIMATE, MANUAL INCREASED (>450,000) (NORMAL)
[2017-10-10 05:59] LABS: PLATELET MORPHOLOGY NORMAL APP (NORMAL)
[2017-10-10] MEDS: PANTOPRAZOLE 40 MG VIAL IV SCH (06:53)
[2017-10-10] MEDS: SODIUM CHLORIDE FLUSH 0.9% 10 ML SYRINGE IVP PRN (06:54)
[2017-10-10] MEDS: FORMOTEROL FUMARATE NEB 20 MCG/2 ML INH SCH ×3 (08:08→20:15)
[2017-10-10] MEDS: BUDESONIDE 0.5 MG/2 ML NEB INH SCH ×3 (08:08→20:15)
[2017-10-10] MEDS: LISINOPRIL 20 MG TABLET PO SCH (08:12)
[2017-10-10] MEDS: CARVEDILOL 12.5 MG TABLET PO SCH ×2 (08:13→21:23)
[2017-10-10] MEDS: ENOXAPARIN 40 MG/0.4 ML SYRINGE SUBQ SCH (08:14)
--- NOTE | 2017-10-10 08:46 | PROVIDER PROGRESS NOTE ---
Subjective - General Admit Date: 10/03/17 Procedure Date: 10/03/17 Post Op Days: 7 Procedure Performed: Exp lap with reduction hernia, repair hernia, GIFTY&BSO, drain, liver bx - Review of Systems Wound/Incisions: positive: Healing well (Half of savi out.) Drain Type: 19 Fr Pranay Drain Output Description: serosanguinous with some clot Approximate mls Output: about 300 mL/24 hrs now 60 mL since midnight General: positive: No symptoms (Pt ambulating well). negative: Fever HEENT: positive: No symptoms, Other. negative: Headaches Pulmonary: positive: Other (Markedly improved.). negative: Shortness of breath , Pleuritic chest pain, Cough, Sputum, Hemoptysis, Wheezing Cardiovascular: positive: No symptoms, Other (Denies chest pain or irregular beat). negative: Chest pain, Palpitations Gastrointestinal: positive: Flatus (No BM yet.) Genitourinary: positive: No symptoms (Denies vaginal bleeding. States she is urinating.). negative: Flank pain Musculoskeletal: positive: No symptoms Skin: positive: No symptoms Psychiatric: positive: No symptoms Objective - Patient Data Reviewed Vital Signs: Yes Vital Signs: Vital Signs x48h Temp Pulse Pulse Resp BP Pulse Ox 10/10/17 07:57 36.5 C 71 19 132/86 H 95 10/10/17 04:55 84 16 Weight: Weight 10/08/17 10/09/17 10/10/17 23:59 23:59 23:59 Weight (kg) 60 kg 63 kg 64.5 kg Intake & Output: Intake and Output Totals x24h 10/08/17 10/09/17 10/10/17 23:59 23:59 23:59 Intake Total 2704.718 4185 400 Output Total 2755 2400 60 Balance -50.282 1785 340 - Lab Results Lab Results: 10/10/17 04:20 10/10/17 04:20 Other Lab Results: Lab Results x24hrs 10/10/17 10/10/17 Range/Units 04:20 04:20 WBC 7.2 (4.8-10.8) x10^3/uL RBC 3.43 L (4.20-5.40) 10^6/uL Hgb 8.8 L (12.0-16.0) g/dL Hct 27.5 L (37.0-47.0) % MCV 80.3 L (81.0-99.0) fL MCH 25.7 L (27.0-31.0) pg MCHC 32.0 (32.0-36.0) g/dL RDW 22.9 H (12.0-15.0) % Plt Count 480 H (130-450) 10^3/uL MPV 6.9 L (7.9-10.8) fL Neut # 4.8 (1.5-6.6) 10^3/uL Lymph # 1.4 L (1.5-3.5) 10^3/uL [place] # 0.7 (0.0-1.0) 10^3/uL Eos # 0.2 (0.0-0.7) 10^3/uL Baso # 0.1 (0.0-0.1) 10^3/uL Absolute Nucleated RBC 0.00 x10^3/uL Nucleated RBC % 0.0 /100WBC Manual Slide Review Indicated Platelet Estimate INCREASED (>450,000) (NORMAL) Platelet Morphology NORMAL YESSI (NORMAL) RBC Morph Micro Appear 1+ MACROCYTOSIS (NORMAL) Sodium 134 L (135-145) mmol/L Potassium 4.0 (3.5-5.0) mmol/L Chloride 98 L (101-111) mmol/L Carbon Dioxide 31 (21-32) mmol/L Anion Gap 5.0 L (6-13) BUN 12 (6-20) mg/dL Creatinine 0.6 (0.4-1.0) mg/dL Estimated GFR (MDRD) 101 (>89) Glucose 114 H (70-100) mg/dL Calcium 7.9 L (8.5-10.3) mg/dL Total Bilirubin 0.2 (0.2-1.0) mg/dL AST 12 (10-42) IU/L ALT < 10 L (10-60) IU/L Alkaline Phosphatase 63 (42-121) IU/L Total Protein 4.3 L (6.7-8.2) g/dL Albumin 2.1 L (3.2-5.5) g/dL Globulin 2.3 (2.1-4.2) g/dL Albumin/Globulin Ratio 1.0 (1.0-2.2) - Imaging Results Radiology Imaging: positive: Other (Not done yet.) - Current Medications Current Medications: Current Medications Generic Name Dose Route Start Last Admin Trade Name Freq PRN Reason Stop Dose Admin Acetaminophen/Hydrocodone Bitart 1 tab 10/09/17 14:05 10/10/17 04:40 [place] 5/325 PO 1 tab Q4HR PRN Administration PAIN Albuterol/Ipratropium 3 ml 10/04/17 12:15 10/10/17 04:55 Duoneb INH 3 ml RTQID PRN Administration Shortness of Air/Wheezing Budesonide 0.5 mg 10/04/17 19:00 10/09/17 20:55 Pulmicort INH 0.5 mg RTBID MATTHEW Administration Carvedilol 12.5 mg 10/08/17 01:00 10/10/17 08:13 Coreg PO 12.5 mg BID MATTHEW Administration Enoxaparin Sodium 40 mg 10/04/17 09:00 10/10/17 08:14 Lovenox SUBQ 40 mg DAILY MATTHEW Administration Formoterol Fumarate 20 mcg 10/04/17 19:00 10/09/17 21:06 Perforomist INH 20 mcg RTBID MATTHEW Administration Ertapenem 1 gm/ Sodium 100 mls @ 200 mls/hr 10/03/17 23:14 10/09/17 22:07 Chloride IV Infused HS MATTHEW Infusion Potassium Chloride/Dextrose/Sod Cl 1,000 mls @ 60 mls/hr 10/09/17 14:05 10/09 18:52 D5.45ns W/20 Meq Kcl IV 60 mls/hr .[id number] MATTHEW Administration Ketorolac Tromethamine 15 mg 10/07/17 16:13 10/10/17 08:13 Toradol Inj IVP 10/12/17 16:12 15 mg Q6HR PRN Administration PAIN Lisinopril 40 mg 10/08/17 09:00 10/10/17 08:12 Zestril PO 40 mg DAILY MATTHEW Administration Ondansetron HCl 4 mg 10/03/17 21:32 10/03/17 23:41 Zofran Inj IVP 4 mg Q6H PRN Administration Nausea / Vomiting Pantoprazole Sodium 40 mg 10/07/17 17:00 10/10/17 06:53 Protonix IV 40 mg QDAC MATTHEW Administration Sodium Chloride 10 ml 10/04/17 01:00 10/10/17 08:15 Normal Saline Flush 0.9% IVP Not Given 0100,0900,1700 MATTHEW Sodium Chloride 10 ml 10/03/17 21:32 10/10/17 06:54 Normal Saline Flush 0.9% IVP 10 ml PRN PRN Administration NEEDED PER PROVIDER ORDERS Throat Lozenges 1 lozenge 10/04/17 03:08 10/07/17 15:12 Cepacol MM 1 lozenge Q2HR PRN Administration Throat pain - Physical Exam Wound/Incisions: positive: Healing well (Half of savi removed.) General Appearance: positive: No acute distress Eyes Bilateral: positive: No lid inflammation, Conjunctivae nml, No scleral icterus ENT: positive: No signs of dehydration Neck: positive: Trachea midline Respiratory: positive: Chest non-tender, Other (Breath sound MUCH better still not perfectly clear but likely her baseline.) Cardiovascular: positive: Regular rate & rhythm Abdomen: positive: Nml bowel sounds, Tenderness (Incisional.) Skin: positive: Color nml Extremities: positive: Nml appearance Neurologic/Psychiatric: positive: Oriented x3 Impression/Plan - Problem List Problem List: D7 s/p reduction LEFT inguinal Rocha's hernia, closure hernia defect, GIFTY&BSO , drain placement Discussed pathology with patient. Awaiting AXR. Off [employer]. Oral pain meds. Still no BM. Switch to oral antibiotics.
[2017-10-10] MEDS: levoFLOXacin 250 MG TABLET PO SCH (09:15)
[2017-10-10] MEDS: METOCLOPRAMIDE 10 MG TABLET PO SCH ×3 (11:30→21:30)
--- NOTE | 2017-10-10 13:24 | XRAY Report ---
TWO VIEW ABDOMEN: 10/10/2017 CLINICAL INDICATION: Evaluate small bowel dilatation and possible contrast in drain. FINDINGS: Supine and crosstable lateral views of the abdomen demonstrate persistent small bowel dilatation. Oral contrast has now moved through the ascending and transverse colon to the descending colon. Dense material is again seen in the surgical drain, unchanged. No free extraluminal contrast is appreciated in the pelvis. IMPRESSION: PERSISTENT SMALL BOWEL DILATATION, BUT THERE IS MOVEMENT OF ORAL CONTRAST INTO THE PROXIMAL DESCENDING COLON, MORE COMPATIBLE WITH PROLONGED ILEUS. TD: 10/10/2017 13:23
[2017-10-10] MEDS: ACETAMINOPHEN 325 MG TABLET PO PRN (16:12)
[2017-10-11] MEDS: ACETAMINOPHEN 325 MG TABLET PO PRN (00:09)
[2017-10-11] MEDS: SODIUM CHLORIDE FLUSH 0.9% 10 ML SYRINGE IVP SCH ×2 (00:35→09:16)
[2017-10-11] MEDS: HYDROcod/ACETAM 5/325 MG TABLET PO PRN ×3 (01:44→11:22)
[2017-10-11] MEDS: D5.45NS W/20 MEQ KCL 1,000 ML IV SCH (04:24)
[2017-10-11] MEDS: METOCLOPRAMIDE 10 MG TABLET PO SCH ×2 (06:11→11:23)
[2017-10-11] MEDS ORDERED: PANTOPRAZOLE 40 MG TABLET PO SCH (07:00)
[2017-10-11] MEDS: BUDESONIDE 0.5 MG/2 ML NEB INH SCH (07:37)
[2017-10-11] MEDS: FORMOTEROL FUMARATE NEB 20 MCG/2 ML INH SCH (07:37)
--- NOTE | 2017-10-11 08:13 | PROVIDER PROGRESS NOTE ---
Subjective - General Admit Date: 10/03/17 Procedure Date: 10/03/17 Post Op Days: 8 Procedure Performed: Exp lap with reduction hernia, repair hernia, GIFTY&BSO, drain, liver bx - Review of Systems Wound/Incisions: positive: Healing well (Half of savi removed.) Drain Type: 19 Fr Pranay Drain Output Description: serosanguinous with some clot Approximate mls Output: about 300 mL/24 hrs now 60 mL since midnight General: positive: No symptoms (Pt ambulating well). negative: Fever HEENT: positive: No symptoms, Other. negative: Headaches Pulmonary: positive: Other (Markedly improved.). negative: Shortness of breath , Pleuritic chest pain, Cough, Sputum, Hemoptysis, Wheezing Cardiovascular: positive: No symptoms, Other (Denies chest pain or irregular beat). negative: Chest pain, Palpitations Gastrointestinal: positive: Flatus (No BM yet.) Genitourinary: positive: No symptoms (Denies vaginal bleeding. States she is urinating.). negative: Flank pain Musculoskeletal: positive: No symptoms Skin: positive: No symptoms Psychiatric: positive: No symptoms Objective - Patient Data Reviewed Vital Signs: Yes Vital Signs: Vital Signs x48h Temp Pulse Pulse Resp BP Pulse Ox 10/11/17 07:53 72 16 10/11/17 07:47 36.6 C 71 20 148/89 H 90 L 10/11/17 00:21 36.6 C 76 18 128/74 93 Weight: Weight 10/09/17 10/10/17 10/11/17 23:59 23:59 23:59 Weight (kg) 63 kg 64.5 kg 63 kg Intake & Output: Intake and Output Totals x24h 10/09/17 10/10/17 10/11/17 23:59 23:59 23:59 Intake Total 4185 2380 Output Total 2400 360 160 Balance 1785 2020 -160 - Lab Results Lab Results: 10/10/17 04:20 10/10/17 04:20 - Imaging Results Radiology Imaging: positive: Final report received - Current Medications Current Medications: Current Medications Generic Name Dose Route Start Last Admin Trade Name Freq PRN Reason Stop Dose Admin Acetaminophen 650 mg 10/09/17 15:34 10/11/17 00:09 Tylenol PO 650 mg Q4HR PRN Administration Pain or Fever > 38C (100.4F) Acetaminophen/Hydrocodone Bitart 1 tab 10/09/17 14:05 10/11/17 06:15 [place] 5/325 PO 1 tab Q4HR PRN Administration PAIN Albuterol/Ipratropium 3 ml 10/04/17 12:15 10/10/17 18:10 Duoneb INH 3 ml RTQID PRN Administration Shortness of Air/Wheezing Budesonide 0.5 mg 10/04/17 19:00 10/11/17 07:37 Pulmicort INH 0.5 mg RTBID MATTHEW Administration Carvedilol 12.5 mg 10/08/17 01:00 10/10/17 21:23 Coreg PO 12.5 mg BID MATTHEW Administration Enoxaparin Sodium 40 mg 10/04/17 09:00 10/10/17 08:14 Lovenox SUBQ 40 mg DAILY MATTHEW Administration Formoterol Fumarate 20 mcg 10/04/17 19:00 10/11/17 07:37 Perforomist INH 20 mcg RTBID MATTHEW Administration Potassium Chloride/Dextrose/Sod Cl 1,000 mls @ 60 mls/hr 10/09/17 14:05 10/11 04:24 D5.45ns W/20 Meq Kcl IV 60 mls/hr .[id number] MATTHEW Administration Ketorolac Tromethamine 15 mg 10/07/17 16:13 10/10/17 13:36 Toradol Inj IVP 10/12/17 16:12 15 mg Q6HR PRN Administration PAIN Levofloxacin 500 mg 10/10/17 09:00 10/10/17 09:15 Levaquin PO 500 mg DAILY MATTHEW Administration Lisinopril 40 mg 10/08/17 09:00 10/10/17 08:12 Zestril PO 40 mg DAILY MATTHEW Administration Metoclopramide HCl 10 mg 10/10/17 11:00 10/11/17 06:11 Reglan PO 10 mg ACHS MATTHEW Administration Pantoprazole Sodium 40 mg 10/11/17 07:00 10/11/17 06:11 Protonix PO 40 mg QDAC MATTHEW Administration Sodium Chloride 10 ml 10/04/17 01:00 10/11/17 00:35 Normal Saline Flush 0.9% IVP Not Given 0100,0900,1700 MATTHEW Sodium Chloride 10 ml 10/03/17 21:32 04/25/18 06:54 Normal Saline Flush 0.9% IVP 10 ml PRN PRN Administration NEEDED PER PROVIDER ORDERS - Physical Exam Neurologic/Psychiatric: positive: Oriented x3, CN's nml (2-12) Impression/Plan - Problem List Problem List: POD # 8 S/P Ex Lap with reduction of rictors hernia closure of left hernia and GIFTY wit BSO. Pt improving. Regular diet, passing flatus but not stool yet. Path report was reviewed with the Pt yesterday. invasive squamous cell cervical Ca. Clear margins. pt told that there is still a probability of lymphatic extension. She still needs to have followup with [facility]. Will sent Path report and op reports to [facility].
--- NOTE | 2017-10-11 08:50 | PROVIDER PROGRESS NOTE ---
Subjective - General Admit Date: 10/03/17 Procedure Date: 10/03/17 Post Op Days: 11 Procedure Performed: Exp lap with reduction hernia, repair hernia, GIFTY&BSO, drain, liver bx - Review of Systems Wound/Incisions: positive: Healing well (Half of savi removed.) Drain Type: 19 Fr Pranay Drain Output Description: serosanguinous with some clot Approximate mls Output: about 300 mL/24 hrs now 60 mL since midnight General: positive: No symptoms (Pt ambulating well). negative: Fever HEENT: positive: No symptoms, Other. negative: Headaches Pulmonary: positive: Other (Markedly improved.). negative: Shortness of breath , Pleuritic chest pain, Cough, Sputum, Hemoptysis, Wheezing Cardiovascular: positive: No symptoms, Other (Denies chest pain or irregular beat). negative: Chest pain, Palpitations Gastrointestinal: positive: Flatus (No BM yet.) Genitourinary: positive: No symptoms (Denies vaginal bleeding. States she is urinating.). negative: Flank pain Musculoskeletal: positive: No symptoms Skin: positive: No symptoms Psychiatric: positive: No symptoms Objective - Patient Data Reviewed Vital Signs: Yes Vital Signs: Vital Signs x48h Temp Pulse Pulse Resp BP Pulse Ox 10/11/17 07:53 72 16 10/11/17 07:47 36.6 C 71 20 148/89 H 90 L Weight: Weight 10/09/17 10/10/17 10/11/17 23:59 23:59 23:59 Weight (kg) 63 kg 64.5 kg 63 kg Intake & Output: Intake and Output Totals x24h 10/09/17 10/10/17 10/11/17 23:59 23:59 23:59 Intake Total 4185 2380 Output Total 2400 360 160 Balance 1785 2020 -160 - Lab Results Lab Results: 10/10/17 04:20 10/10/17 04:20 - Current Medications Current Medications: Current Medications Generic Name Dose Route Start Last Admin Trade Name Freq PRN Reason Stop Dose Admin Acetaminophen 650 mg 10/09/17 15:34 10/11/17 00:09 Tylenol PO 650 mg Q4HR PRN Administration Pain or Fever > 38C (100.4F) Acetaminophen/Hydrocodone Bitart 1 tab 10/09/17 14:05 10/11/17 06:15 [place] 5/325 PO 1 tab Q4HR PRN Administration PAIN Albuterol/Ipratropium 3 ml 10/04/17 12:15 10/10/17 18:10 Duoneb INH 3 ml RTQID PRN Administration Shortness of Air/Wheezing Budesonide 0.5 mg 10/04/17 19:00 10/11/17 07:37 Pulmicort INH 0.5 mg RTBID MATTHEW Administration Carvedilol 12.5 mg 10/08/17 01:00 10/10/17 21:23 Coreg PO 12.5 mg BID MATTHEW Administration Enoxaparin Sodium 40 mg 10/04/17 09:00 10/10/17 08:14 Lovenox SUBQ 40 mg DAILY MATTHEW Administration Formoterol Fumarate 20 mcg 10/04/17 19:00 10/11/17 07:37 Perforomist INH 20 mcg RTBID MATTHEW Administration Potassium Chloride/Dextrose/Sod Cl 1,000 mls @ 60 mls/hr 10/09/17 14:05 10/11 04:24 D5.45ns W/20 Meq Kcl IV 60 mls/hr .[id number] MATTHEW Administration Ketorolac Tromethamine 15 mg 10/07/17 16:13 10/10/17 13:36 Toradol Inj IVP 10/12/17 16:12 15 mg Q6HR PRN Administration PAIN Levofloxacin 500 mg 10/10/17 09:00 10/10/17 09:15 Levaquin PO 500 mg DAILY MATTHEW Administration Lisinopril 40 mg 10/08/17 09:00 10/10/17 08:12 Zestril PO 40 mg DAILY MATTHEW Administration Metoclopramide HCl 10 mg 10/10/17 11:00 10/11/17 06:11 Reglan PO 10 mg ACHS MATTHEW Administration Sodium Chloride 10 ml 10/04/17 01:00 10/11/17 00:35 Normal Saline Flush 0.9% IVP Not Given 0100,0900,1700 MATTHEW Sodium Chloride 10 ml 10/03/17 21:32 10/10/17 06:54 Normal Saline Flush 0.9% IVP 10 ml PRN PRN Administration NEEDED PER PROVIDER ORDERS - Physical Exam Wound/Incisions: positive: Healing well General Appearance: positive: No acute distress Eyes Bilateral: positive: No lid inflammation, Conjunctivae nml, No scleral icterus ENT: positive: No signs of dehydration Neck: positive: Trachea midline Respiratory: positive: Other (I woiuld not say that her breath sounds are normal but they are the best I have heard them throughout her hospitalization.) Cardiovascular: positive: Regular rate & rhythm Abdomen: positive: Tenderness (Still with some incisional tenderness but markedly decreased.) Skin: positive: Color nml Extremities: positive: Non-tender, Nml appearance Neurologic/Psychiatric: positive: Oriented x3 Impression/Plan - Problem List Problem List: D8 s/p reduction LEFT inguinal Rocha's hernia, closure hernia defect, and GIFTY& BSO AXR yesterday showing very slow movement of contrast in bowel consistent with prolonged ileus. Will try Ducolax suppository today to see whether we can " jump start" the bowels. Otherwise doing well. Lungs and ambulation markedly improved. Both Dr. Hayes and I have now discussed the pathology of her gynecologic cancer with her and both have discussed the likelihood that she will require radiation therapy. I explained that her case will be discussed at [facility] and I would definitely be meeting with her afterwards to let her know what the consensus opinion was. Despite very long conversations, I have not been able to convince her that our gynecologists her at [facility] are "worthy of her time" and this is after I pointed out that Dr. Hayes had performed a fantastic operation in removing her cancer. I also pointed out that his instincts regarding this cancer were correct. She is asking to go off harvel for her care. She will certainly need to do so for radiation therapy if it recommended.
[2017-10-11] MEDS ORDERED: BISACODYL 10 MG SUPP PR ONE (09:01)
[2017-10-11] MEDS: CARVEDILOL 12.5 MG TABLET PO SCH (09:15)
[2017-10-11] MEDS: levoFLOXacin 250 MG TABLET PO SCH (09:15)
[2017-10-11] MEDS: ENOXAPARIN 40 MG/0.4 ML SYRINGE SUBQ SCH (09:15)
[2017-10-11] MEDS: LISINOPRIL 20 MG TABLET PO SCH (09:16)
--- NOTE | 2017-10-11 13:56 | Discharge Plan ---
Discharge Plan Disposition: Home, Self Care Condition: Good Prescriptions: HYDROcod/ACETAM [[place] ] 1 tab PO Q4HR PRN #30 tablet PRN Reason: Pain Diet: Regular Activity Restrictions: No lifting >15 pounds x 6 weeks. Shower Restrictions: No Driving Restrictions: No Weight Bearing: Full Weight No Smoking: If you smoke, Please STOP! Call for help. Follow-up with: Yung Gay MD [Primary Care Provider] - Gordon Borja MD [Provider Admit Priv/Credential] - Greg Hayes MD [Provider Admit Priv/Credential] -
[2017-10-11 15:05] VITALS: BP 159/98
--- NOTE | 2017-10-14 19:37 | DISCHARGE SUMMARY ---
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 I was called by the ED as I was the surgeon post secondary professional for her SBO. As I was taking her to the operating room I consulted Dr. Hayes (as he also knew of the patient) to evaluate and likely remove her uterus (enlarged with biopsies showing squamous cell carcinoma in situ). He agreed and on the evening of 10/03/17 I reduced her incarcerated LEFT inguinal Richters hernia, repaired the defect, turned the case over to Dr. Hayes who performed the GIFTY&BSO, and then we placed a drain and I biopsied a firm hepatic nodule. Please note that I assisted Dr. Hayes for his portion of the operation and he assisted me for mine. - CONSULTS | PROCEDURES Consultations: Me and Dr. Hayes Procedures: See above. - HOSPITAL COURSE Hospital Course: Essentially uncomplicated but the patient's reticence to ambulate and participate in her pulmonary toilet did prolong her hospitalization. By the time of her discharge she was ambulating well and her lungs sounded much better , but I would NOT say that our treatment meaningfully impacted the future course of her COPD. - ALLERGIES Allergies/Adverse Reactions: Allergies Allergy/AdvReac Type Severity Reaction Status Date / Time No Known Drug Allergies Allergy Verified 08/08/17 20:39 - MEDICATIONS Home Medications: Ambulatory Orders Medication Instructions Recorded Confirmed Ipratropium/Albuterol [Combivent 1 puffs INH QID 03/18/17 10/03/17 Respimat] hydroCHLOROthiazide [Hydrodiuril] 12.5 mg PO DAILY 03/18/17 10/04/17 Albuterol 2.5 mg INH Q4H PRN 04/18/17 10/04/17 Carvedilol 12.5 mg PO BID 04/18/17 10/03/17 Fluticasone/Salmeterol [Advair 1 puffs INH BID 08/09/17 10/04/17 250-50 Diskus] Ipratropium/Albuterol [Duoneb] 3 ml INH BID PRN 08/09/17 10/03/17 raNITIdine [Zantac] 150 mg PO BID 08/09/17 10/04/17 Lisinopril 40 mg PO DAILY 10/03/17 10/03/17 Aspirin [Aspirin EC] 81 mg PO DAILY 10/04/17 10/04/17 LORazepam [Lorazepam] 0.5 mg PO Q6H PRN 10/04/17 10/04/17 HYDROcod/ACETAM 5/325 [[place] 5/325] 1 tab PO Q4HR PRN #30 tablet 10/11/17 Home Medications Other | Comments: [place] 5/325 mg tabs 1 every 4 hours given for pain. Colace 250 mg taab daily given to prevent constipation. - PHYSICAL EXAM AT DISCHARGE General Appearance: positive: No acute distress Eyes Bilateral: positive: No lid inflammation, Conjunctivae nml, No scleral icterus ENT: positive: No signs of dehydration Neck: positive: Trachea midline Respiratory: positive: Other (Again breath sound markedly improved now with fine crackles/wheezes.) Cardiovascular: positive: Regular rate & rhythm Abdomen: positive: Tenderness (Incisional and again improved.) Skin: positive: Color nml Extremities: positive: Nml appearance, No pedal edema Neurologic/Psychiatric: positive: Oriented x3 - LABS Result Diagrams: 10/10/17 04:20 10/10/17 04:20 - FOLLOW UP Follow Up: [facility] in 7-10 days for remaining staple removal and drain removal [facility] in 7-10 days - TIME SPENT Time Spent in Discharge (Minutes): 45"
== END 2017-10-11 15:45 | disposition home or self-care (01) | DRG 351 ==
LOC: EDUNIT# → EDSEX → ED 12:56 → SDS 16:50 → MS3 21:32
PROVIDERS: ADMIT Surgery; ATTEND Surgery
PROC: 0UT90ZZ Resection of Uterus, Open Approach (ICD-10-PCS; 2017-10-03)
PROC: 0UT20ZZ Resection of Bilateral Ovaries, Open Approach (ICD-10-PCS; 2017-10-03)
PROC: 0UT70ZZ Resection of Bilateral Fallopian Tubes, Open Approach (ICD-10-PCS; 2017-10-03)
PROC: 0YQ60ZZ Repair Left Inguinal Region, Open Approach (ICD-10-PCS; principal; 2017-10-03 17:00)
PROC: 0FB00ZX Excision of Liver, Open Approach, Diagnostic (ICD-10-PCS; 2017-10-03 17:00)
DX: K40.30 Unilateral inguinal hernia, with obstruction, without gangrene, not specified as recurrent (principal); K56.7 Ileus, unspecified; D06.9 Carcinoma in situ of cervix, unspecified; N71.9 Inflammatory disease of uterus, unspecified; R16.0 Hepatomegaly, not elsewhere classified; D50.0 Iron deficiency anemia secondary to blood loss (chronic); J43.9 Emphysema, unspecified; I10 Essential (primary) hypertension; F41.9 Anxiety disorder, unspecified; Z87.891 Personal history of nicotine dependence; Z86.79 Personal history of other diseases of the circulatory system; Z86.2 Personal history of diseases of the blood and blood-forming organs and certain disorders involving the immune mechanism; Z79.51 Long term (current) use of inhaled steroids
CPT/HCPCS: 36415; 71045; 71046; 74019; 74022; 74177; 80053; 83605; 83690; 83735; 85025; 87070; 87205; 88305; 88307; 88309; 88342; 93005; 94640; 96365; 96375; 99284; 99285

== ENCOUNTER 2017-10-15 12:27 | Outpatient (CLI) | payer OTHER | END 2017-10-15 12:28 | disposition critical access hospital (66) | LOC: EDUNIT# 12:27 → EMS 12:27 | PROVIDERS: ATTEND Surgery | DX: R51 Headache (principal); R42 Dizziness and giddiness; R11.0 Nausea; R09.89 Other specified symptoms and signs involving the circulatory and respiratory systems | CPT/HCPCS: A0425; A0427 ==

== ENCOUNTER 2017-10-15 12:52 | Inpatient (IN) | payer OTHER ==
[2017-10-15] MEDS ORDERED: SODIUM CHLORIDE 0.9% 1,000 ML IV ONE ×2 (13:01→15:07)
[2017-10-15] MEDS ORDERED: diltiaZEM INJ 5 MG/ML VIAL IVP STA (13:02)
--- NOTE | 2017-10-15 13:11 | ED Physician Documentation ---
PD HPI CHEST PAIN - Stated complaint Stated Complaint: NAUSEA - Chief complaint Chief Complaint: Cardiac - Additional information Additional information: hx from pt 61 f s/p surgery 10/03 for incarcerated inguinal hernia and hyst for uterine cancer with pyometrium dc 10/11 has had LLE pain and swelling yesterday then today stood up and felt near syncopal soa and had ringing in her ears 911 called pt is afib RVR and was orthostatic hx a fib but no anticoag or rate meds was sinus tach on EKG during recent admit Review of Systems Constitutional: denies: Fever, Chills Cardiac: reports: Palpitations. denies: Chest pain / pressure Respiratory: reports: Dyspnea GI: denies: Abdominal Pain, Nausea, Vomiting Neurologic: reports: Generalized weakness, Near syncope. denies: Altered mental status Endocrine: denies: Easy bruising / bleeding Immunocompromised: denies: Immunocompromised PD PAST MEDICAL HISTORY - Past Medical History Cardiovascular: Hypertension, Atrial fibrillation Respiratory: COPD Neuro: None Endocrine/Autoimmune: None GI: Other : None HEENT: None Psych: Anxiety Musculoskeletal: None Derm: None - Past Surgical History Past Surgical History: No General: Appendectomy - Present Medications Home Medications: Ambulatory Orders Medication Instructions Recorded Confirmed Ipratropium/Albuterol [Combivent 1 puffs INH QID 03/18/17 10/03/17 Respimat] hydroCHLOROthiazide [Hydrodiuril] 12.5 mg PO DAILY 03/18/17 10/04/17 Albuterol 2.5 mg INH Q4H PRN 04/18/17 10/04/17 Carvedilol 12.5 mg PO BID 04/18/17 10/03/17 Fluticasone/Salmeterol [Advair 1 puffs INH BID 08/09/17 10/04/17 250-50 Diskus] Ipratropium/Albuterol [Duoneb] 3 ml INH BID PRN 08/09/17 10/03/17 raNITIdine [Zantac] 150 mg PO BID 08/09/17 10/04/17 Lisinopril 40 mg PO DAILY 10/03/17 10/03/17 Aspirin [Aspirin EC] 81 mg PO DAILY 10/04/17 10/04/17 LORazepam [Lorazepam] 0.5 mg PO Q6H PRN 10/04/17 10/04/17 HYDROcod/ACETAM 5/325 [[place] 5/325] 1 tab PO Q4HR PRN #30 tablet 10/11/17 - Allergies Allergies/Adverse Reactions: Allergies Allergy/AdvReac Type Severity Reaction Status Date / Time No Known Drug Allergies Allergy Verified 08/08/17 20:39 - Social History Does the pt smoke?: No Smoking Status: Current some day smoker Does the pt drink ETOH?: No Does the pt have substance abuse?: No - Immunizations Immunizations are current?: Yes - POLST Patient has POLST: No POLST Status: Full Code PD ED PE NORMAL - Vitals Vital signs reviewed: Yes - General General: Alert and oriented X 3 - HEENT HEENT: PERRL - Neck Neck: Supple, no meningeal sign - Cardiac Cardiac: No: RRR (tachy) - Respiratory Respiratory: Other - Abdomen Abdomen: Other (post op incision s dehisc or redness mod diffuse TTP) - Derm Derm: Normal color - Extremities Extremities: No: No edema (jerome edema) - Neuro Neuro: Alert and oriented X 3 Results - Vitals Vitals: Vital Signs - 24 hr 10/15/17 10/15/17 10/15/17 12:55 13:24 13:30 Temperature 37.1 C Heart Rate 178 H 150 H Respiratory Rate Blood Pressure 130/97 H 131/110 H 114/93 H O2 Saturation 91 L 10/15/17 10/15/17 10/15/17 13:42 15:00 15:50 Temperature Heart Rate 150 H 167 H 145 H Respiratory Rate Blood Pressure 104/77 78/58 L 88/64 L O2 Saturation 10/15/17 10/15/17 16:44 17:08 Temperature Heart Rate 79 77 Respiratory 23 Rate Blood Pressure 108/77 109/83 H O2 Saturation 99 99 Oxygen O2 Source Nasal cannula - EKG (time done) 1300 Rate: Rate (enter#) (183) Rhythm: Atrial fibrillation Ischemia: Other (coved ST seg anterior and depression laterally likely rate related but will get trop and rpt when rate controlled) 1631 Rate: Rate (enter#) (80) Rhythm: NSR Ischemia: Non specific changes - Labs Labs: Laboratory Tests 10/15/17 10/15/17 10/15/17 13:43 13:43 13:43 WBC 10.3 RBC 3.66 L Hgb 9.5 L Hct 29.7 L MCV 81.1 MCH 25.9 L MCHC 31.9 L RDW 22.9 H Plt Count 797 H MPV 6.1 L Neut # 7.3 H Lymph # 1.8 [place] # 0.9 Eos # 0.3 Baso # 0.1 Absolute Nucleated RBC 0.00 Nucleated RBC % 0.0 Sodium 134 L Potassium 3.8 Chloride 95 L Carbon Dioxide 28 Anion Gap 11.0 BUN 8 Creatinine 0.6 Estimated GFR (MDRD) 101 Glucose 100 Lactic Acid Calcium 8.2 L Troponin I < 0.04 Urine Color Urine Clarity Urine pH Ur Specific [place] Urine Protein Urine Glucose (UA) Urine Ketones Urine Occult Blood Urine Nitrite Urine Bilirubin Urine Urobilinogen Ur Leukocyte Esterase Ur Microscopic Review Urine Culture Comments 10/15/17 10/15/17 13:43 17:20 WBC RBC Hgb Hct MCV MCH MCHC RDW Plt Count MPV Neut # Lymph # [place] # Eos # Baso # Absolute Nucleated RBC Nucleated RBC % Sodium Potassium Chloride Carbon Dioxide Anion Gap BUN Creatinine Estimated GFR (MDRD) Glucose Lactic Acid 1.4 Calcium Troponin I Urine Color YELLOW Urine Clarity CLEAR Urine pH 5.5 Ur Specific [place] 1.010 Urine Protein NEGATIVE Urine Glucose (UA) NEGATIVE Urine Ketones NEGATIVE Urine Occult Blood NEGATIVE Urine Nitrite NEGATIVE Urine Bilirubin NEGATIVE Urine Urobilinogen 0.2 (NORMAL) Ur Leukocyte Esterase NEGATIVE Ur Microscopic Review NOT INDICATED Urine Culture Comments NOT INDICATED - Rads (name of study) CTA Radiology: See rad report (no central PE non diagnostic for smaller vessels) CXR Radiology: See rad report (no pneumo, bibasilar atelectasis, small effusion, no pneumo) PD MEDICAL DECISION MAKING - ED course ED course: afib RVR hx a fib but not chronically newly tachycardic but not completely sure when back into a fib - was last documented to be sinus tach 10/03 no CP or hypotension so focus on rate control initially I was told no dilt in house so gave lopressor 5 IV X 1 with good control briefly but then tachy again now pharmacy has procured some dilt and the lopressor has worn off so started a dilt gtt as dilt gtt started pt BP dropped to 80 so decided to cardiovert - last ate yesterday, consented, meds drawn, RT at bedside for procedure - and pt spont cardioverted HR down BP up, rpt EKG s ischemia pt did have a period of hypotension which improved with IVF (approx 60-90 min while getting 2 L of IVF) suspect PE (post op, recent long inpt stay, cancer, tachy and hypoxic) - unfortunately CTPA was non diagnostic for smaller vessels - so gave lovenox will admit for a fib RVR on dilt gtt and further PE work up such as jerome LE dopplers, maybe VQ anemia is not new - better than at dc - so doubt cause of sx EKG abn likely rate related - 1st trop neg - NSR EKG no acute ischemia - merits serial EC and perhaps echo as well Departure - Departure Disposition: 66 [facility] DC/Xfer Clinical Impression: Hypoxia, Atrial fibrillation with RVR Hypotension Qualifiers: Hypotension type: unspecified hypotension type Qualified Code(s): I95.9 - Hypotension, unspecified
[2017-10-15] MEDS ORDERED: METOPROLOL 5 MG/5 ML VIAL IVP STA (13:13)
[2017-10-15] MEDS: DILTIAZEM 50 MG/10 ML VIAL IVP STA ×2 (13:27→13:28)
[2017-10-15 13:55] LABS: BASOPHILS # (AUTO) 0.1 10^3/uL (0.0-0.1); BASOPHILS % (AUTO) 1.2 %; EOSINOPHILS # (AUTO) 0.3 10^3/uL (0.0-0.7); EOSINOPHILS % (AUTO) 2.8 %; HGB - HEMOGLOBIN 9.5 g/dL (12.0-16.0); LYMPHOCYTES # (AUTO) 1.8 10^3/uL (1.5-3.5); LYMPHOCYTES % (AUTO) 17.1 %; MEAN CORPUSCULAR HEMOGLOBIN 25.9 pg (27.0-31.0); MEAN CORPUSCULAR HGB CONC 31.9 g/dL (32.0-36.0); MEAN CORPUSCULAR VOLUME 81.1 fL (81.0-99.0); MEAN PLATELET VOLUME 6.1 fL (7.9-10.8); MONOCYTES # (AUTO) 0.9 10^3/uL (0.0-1.0); MONOCYTES % (AUTO) 8.4 %; NEUTROPHILS # (AUTO) 7.3 10^3/uL (1.5-6.6); NEUTROPHILS % (AUTO) 70.5 %; PLT - PLATELET COUNT 797 10^3/uL (130-450); RED BLOOD COUNT 3.66 10^6/uL (4.20-5.40); RED CELL DISTRIBUTION WIDTH 22.9 % (12.0-15.0); WHITE BLOOD COUNT 10.3 x10^3/uL (4.8-10.8)
[2017-10-15 14:08] LABS: CALCIUM 8.2 mg/dL (8.5-10.3); CREATININE 0.6 mg/dL (0.4-1.0)
[2017-10-15] MEDS ORDERED: IOPAMIDOL-300 100 ML VIAL ONE (14:23)
[2017-10-15] MEDS ORDERED: diltiaZEM INJ 125 MG in DEXTROSE 5% 100 ML IV STA (14:48)
[2017-10-15] MEDS ORDERED: IOPAMIDOL-300 100 ML VIAL IVP ONE (15:08)
--- NOTE | 2017-10-15 15:09 | CT Report ---
EXAM: CT ANGIOGRAM CHEST EXAM DATE: 10/15/2017 02:49 PM. CLINICAL HISTORY: Hypoxia COMPARISON: None. TECHNIQUE: Routine helical imaging was performed through the chest in the pulmonary arterial phase. I V Contrast: 80 cc Isovue 300. Reconstructions: Coronal 3-D MIP reconstructions.Sagittal and coronal. In accordance with CT protocol optimization, one or more of the following dose reduction techniques w ere utilized for this exam: automated exposure control, adjustment of mA and/or KV based on patient s ize, or use of iterative reconstructive technique. FINDINGS: Pulmonary Arteries: Diagnostic quality: Adequate through the proximal to mid segmental arteries. There is diminished opac ification of distal segmental branch vessels which may be a function of timing of contrast bolus. The re is no clear evidence of discrete filling defect to indicate presence of acute pulmonary embolism. There is no evidence of central clot. Lungs/Pleura: There is bilateral lower lobe peribronchial consolidation and volume loss. There is emp hysema. There is a small left pleural effusion. No pneumothorax. Mediastinum: There is cardiomegaly. There are coronary calcifications. Thoracic Aorta: Opacification of the thoracic aorta is inadequate to fully exclude dissection. There is scattered atheromatous calcification. There is no evidence of aneurysm. Upper Abdomen: Unremarkable. Other: None. IMPRESSION: 1. No evidence of acute pulmonary embolism through the proximal to mid segmental branch level. Portio ns of distal vessels within the lung bases are inadequately assessed secondary to contrast bolus kunal ng. There is no evidence of central embolus. 2. There is no evidence of thoracic aortic aneurysm. 3. There is cardiomegaly. 4. There is left greater than right base peribronchial and dependent consolidation with associated vo lume loss. There is a small left pleural effusion. Findings may represent pneumonia and/or atelectasi s. 5. No evidence of pneumothorax. [facility] Referring Provider Line: [phone] SITE ID: [id number]
--- NOTE | 2017-10-15 15:11 | XRAY Report ---
EXAM: CHEST RADIOGRAPHY EXAM DATE: 10/15/2017 02:47 PM. CLINICAL HISTORY: Dyspnea. COMPARISON: 10/15/2017. TECHNIQUE: 1 view. FINDINGS: Lungs/Pleura: There is bibasilar atelectasis. There is a small left pleural effusion. No evidence of pneumothorax. Mediastinum: There is mild cardiomegaly. Other: None. IMPRESSION: 1. There is mild cardiomegaly. 2. There is bibasilar atelectasis. There is a small left pleural effusion. 3. There is no pneumothorax. [facility] Referring Provider Line: [phone] SITE ID: [id number]
[2017-10-15] MEDS ORDERED: ENOXAPARIN 60 MG/0.6 ML SYRINGE SUBQ STA (15:19)
[2017-10-15] MEDS ORDERED: PROCHLORPERAZINE 10 MG/2 ML VIAL IVP PRN (17:24)
[2017-10-15] MEDS ORDERED: SODIUM CHLORIDE FLUSH 0.9% 10 ML SYRINGE IVP PRN (17:24)
[2017-10-15] MEDS ORDERED: ACETAMINOPHEN 325 MG TABLET PO PRN (17:24)
[2017-10-15 17:35] LABS: BILIRUBIN,URINE NEGATIVE (NEGATIVE); GLUCOSE, URINE (UA) NEGATIVE (NEGATIVE); KETONES,URINE (UA) NEGATIVE (NEGATIVE); LEUKOCYTE ESTERASE, URINE NEGATIVE (NEGATIVE); NITRITE,URINE NEGATIVE (NEGATIVE); OCCULT BLOOD,URINE NEGATIVE (NEGATIVE); PH,URINE 5.5 PH (5.0-7.5); PROTEIN,URINE NEGATIVE (NEGATIVE); UROBILINOGEN,URINE 0.2 (NORMAL) E.U./dL (NORMAL)
[2017-10-15 17:41] LABS: CLARITY,URINE CLEAR (CLEAR)
[2017-10-15] MEDS ORDERED: DEXTROSE 5%-0.9% NACL 1,000 ML IV SCH (18:00)
[2017-10-15] MEDS ORDERED: LORazepam 0.5 MG TABLET PO PRN (20:23)
--- NOTE | 2017-10-15 20:29 | ADVANCE CARE PLANNING NOTE ---
Advance Care Planning - Date/Time Date: 10/15/17 Time: 20:00 - Purpose of encounter Text: To confirm the patient's wishes regarding code status, since she had full resuscitation recently, and today she told her RN she wants to be a DNR. - Parties in attendance Parties in attendance: The patient and I spoke in her hospital room. - Decisional capacity Decisional capacity of: The patient has full decision-making capacity. - Subjective/Patient's story Subjective/Patient's story: The patient has been living with constant abdominal pain for many years. Recently she was diagnosed with both an incarcerated hernia and cancer of the uterus. She had a combined surgery for urgently repairing the incarcerated hernia and removing the malignant uterus. She has been home from that hospitalization for only 6 days. She was about to be seen in follow-up by the surgeon, when she developed naer-syncope and SOB today and came to the ER where she was found in Afib at a rate of 190 and BP of 80 and was about to get emergency cardioversion under MAC anesthesia, when she converted to NSR and BP improved to 100 systolic. She has been thinking about her Code Status since the last hospitalization and since being told about signing consent today for MAC and cardioversion. - Objective/Medical story Objective/Medical Story: She has COPD, is a smoker, had recent emergency abdominal and pelvic surgery, has cancer (Stage unknown), is cachectic and was tachycardic and hypotensive ( as described above) earlier today. The patient has requested to be made a DNR. I reviewed with her what that means and she verbalizes understanding and wishes to sign a POLST now indicating DNR status. - Goals of Care Goals of care determinations: The patient wants to stop having abdominal pain. She lives alone and realizes that with cancer, she is very ill. - Plan Plan: She will be treated for paroxysmal Afib and have management of her COPD and malignancy. She will sign a POLST indicating new DNR status. - Code Status Code Status: Do Not Attempt Resuscitation - Time Spent on Advance Care Planning Time spent on advance care plannin min
[2017-10-15] MEDS: SODIUM CHLORIDE FLUSH 0.9% 10 ML SYRINGE IVP SCH (20:46)
[2017-10-15] MEDS: PANTOPRAZOLE 40 MG VIAL IVP SCH (20:46)
[2017-10-15] MEDS: NS W/20 MEQ KCL 1,000 ML IV SCH (20:46)
[2017-10-15] MEDS: CARVEDILOL 12.5 MG TABLET PO SCH (20:47)
[2017-10-15] MEDS: HYDROcod/ACETAM 5/325 MG TABLET PO PRN (21:03)
[2017-10-15] MEDS: IPRATROPIUM 0.2 MG/ML NEB INH PRN (22:04)
--- NOTE | 2017-10-16 | PROVIDER PROGRESS NOTE ---
Subjective - General Admit Date: 10/15/17 Procedure Date: 10/03/17 Post Op Days: 12 Procedure Performed: Reduction of LEFT incarcerated [place] hernia, repair of hernia defect, TA - Review of Systems Wound/Incisions: positive: Healing well (I went to see the patient in the ED at [facility] for wound care only. The patient was going to be admitted for atrial fibrillation with RVR.) Drain Type: 19 Fr Pranay Gastrointestinal: positive: Nausea Objective - Patient Data Reviewed Vital Signs: Yes Vital Signs: Vital Signs x48h Temp Pulse Pulse Resp BP Pulse Ox 10/15/17 22:03 86 12 10/15/17 18:58 25 H 94 10/15/17 18:51 95 10/15/17 18:46 97.5 C H 81 27 H 176/88 H 89 L Weight: Weight 10/13/17 10/14/17 10/15/17 23:59 23:59 23:59 Weight (kg) 57.5 kg Intake & Output: Intake and Output Totals x24h 10/13/17 10/14/17 10/15/17 23:59 23:59 23:59 Intake Total 2000 Output Total 350 Balance 1650 - Lab Results Lab Results: 10/15/17 13:43 10/15/17 13:43 Other Lab Results: Lab Results x24hrs 10/15/17 10/15/17 10/15/17 Range/Units 22:55 17:40 17:40 Troponin I 0.04 < 0.04 (<0.49) ng/mL Blood Type O POSITIVE Antibody Screen NEGATIVE - Current Medications Current Medications: Current Medications Generic Name Dose Route Start Last Admin Trade Name Freq PRN Reason Stop Dose Admin Acetaminophen/Hydrocodone Bitart 1 tab 10/15/17 20:23 10/15/17 21:03 [place] 5/325 PO 1 tab Q4HR PRN Administration PAIN Potassium Chloride/Sodium Chloride 1,000 mls @ 60 mls/hr 10/15/17 21:00 10/15 20:46 Normal Saline 0.9% W/20 Meq Kcl IV 60 mls/hr .[id number] MATTHEW Administration Ipratropium [place] 0.5 mg 10/15/17 17:24 10/15/17 22:04 Atrovent INH 0.5 mg Q6HR PRN Administration Wheezing Pantoprazole Sodium 40 mg 10/15/17 21:00 10/15/17 20:46 Protonix IVP 40 mg BID MATTHEW Administration Sodium Chloride 10 ml 10/16/17 01:00 10/15/17 20:46 Normal Saline Flush 0.9% IVP 10 ml [id number],[id number],1700 MATTHEW Administration - Physical Exam Wound/Incisions: positive: Healing well (I removed the remaining savi and the drain. The patient tolerated the procedure well and a dressing was applied at the drain site opening. 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 There are no current surgical issues that require attention or for me to follow her in the hospital.
[2017-10-16] MEDS: HYDROcod/ACETAM 5/325 MG TABLET PO PRN ×2 (04:11→09:11)
[2017-10-16 04:44] LABS: BASOPHILS # (AUTO) 0.1 10^3/uL (0.0-0.1); BASOPHILS % (AUTO) 1.1 %; EOSINOPHILS # (AUTO) 0.3 10^3/uL (0.0-0.7); HGB - HEMOGLOBIN 7.8 g/dL (12.0-16.0); LYMPHOCYTES % (AUTO) 28.3 %; MEAN CORPUSCULAR HGB CONC 30.2 g/dL (32.0-36.0); MEAN CORPUSCULAR VOLUME 82.8 fL (81.0-99.0); MEAN PLATELET VOLUME 6.2 fL (7.9-10.8); MONOCYTES # (AUTO) 0.7 10^3/uL (0.0-1.0); MONOCYTES % (AUTO) 10.5 %; NEUTROPHILS # (AUTO) 3.9 10^3/uL (1.5-6.6); NEUTROPHILS % (AUTO) 56.1 %; PLT - PLATELET COUNT 609 10^3/uL (130-450); RED BLOOD COUNT 3.13 10^6/uL (4.20-5.40); RED CELL DISTRIBUTION WIDTH 22.1 % (12.0-15.0); WHITE BLOOD COUNT 6.9 x10^3/uL (4.8-10.8)
[2017-10-16 04:48] LABS: CALCIUM 7.6 mg/dL (8.5-10.3); CREATININE 0.6 mg/dL (0.4-1.0); MAGNESIUM 1.6 mg/dL (1.7-2.8)
[2017-10-16 05:51] LABS: PLATELET ESTIMATE, MANUAL INCREASED (>450,000) (NORMAL); PLATELET MORPHOLOGY NORMAL APPEARANCE (NORMAL)
[2017-10-16] MEDS: NS W/20 MEQ KCL 1,000 ML IV SCH (06:58)
[2017-10-16 07:50] LABS: VBG PH 7.296 (7.31-7.41)
[2017-10-16] MEDS ORDERED: MAGNESIUM OXIDE 400 MG TABLET PO SCH (08:00)
[2017-10-16] MEDS: IPRATROPIUM 0.2 MG/ML NEB INH PRN ×2 (08:15→13:20)
[2017-10-16] MEDS ORDERED: CALCIUM GLUCONATE 1,000 MG in SODIUM CHLORIDE 0.9% 50 ML IV SCH (09:00)
[2017-10-16] MEDS ORDERED: ASPIRIN EC 81 MG TABLET PO SCH (09:00)
[2017-10-16] MEDS: CARVEDILOL 12.5 MG TABLET PO SCH (09:10)
[2017-10-16] MEDS: METOPROLOL SUCCINATE 25 MG TABLET PO SCH ×2 (09:11→09:13)
[2017-10-16] MEDS: PANTOPRAZOLE 40 MG VIAL IVP SCH (09:11)
[2017-10-16] MEDS: SODIUM CHLORIDE FLUSH 0.9% 10 ML SYRINGE IVP SCH (09:19)
--- NOTE | 2017-10-16 11:00 | HISTORY & PHYSICAL EXAMINATION ---
DATE OF SERVICE: 10/15/2017 Physician: Clarissa Bennett MD HISTORY OF PRESENT ILLNESS: This is a 61-year-old, white female with a history COPD, continued smoking, hypertension, paroxysmal atrial fibrillation, anemia, longstanding abdominal pain, history of pneumothorax, new onset of atrial fibrillation in March 2017, GI bleed admission with hypotension in April 2017, syncope from anemia in July 2017, and a recent admission here for incarcerated left inguinal hernia on 10/03/2017, requiring urgent surgery, and she had combined surgery with [employer] for removal of her uterus that had been found to be malignant on workup. Patient has only been home 6 days since that hospitalization, recovering from her abdominal surgery that required an open laparotomy, and she was about to see the surgeon today in followup of the wound. This morning, however, she awoke and started to have ringng in her ears and then near syncope when she stood up. Therefore she called 911 and was brought to the emergency room and found to be in rapid atrial fibrillation at a rate of 198 and a systolic blood pressure of 80. She received 2 liters of IV fluids in the emergency room and Lopressor IV 5 mg, which caused a drop in blood pressure to 78, heart rate only improved to 178, and she was about to have emergency cardioversion when she converted into sinus rhythm at a rate of 90-100 and a blood pressure that improved to 100. She is being admitted to the ICU for management of hypotension and paroxysmal atrial fibrillation with RVR. She no longer feels lightheaded. She had no kota syncope, fall or trauma. She does not feel palpitations, SOB or chest pain. PAST MEDICAL HISTORY: COPD, smoking, paroxysmal atrial fibrillation, uterine malignancy recently diagnosed and treated with a hysterectomy during recent incarcerated hernia requiring urgent surgery, remote pneumothorax requiring a chest tube, longstanding abdominal pain of unknown etiology, history of GI bleeding, thyroid nodule. ALLERGIES: NONE. MEDICATIONS 1. Zantac 150 mg b.i.d. 2. HCTZ 12.5 mg daily. 3. Lisinopril 40 mg daily. 4. Lorazepam 0.5 mg every 6 hours p.r.n. anxiety. 5. DuoNeb inhaler. 6. Combivent inhaler. 7. [place] 5/325 every 4 hours p.r.n. pain. 8. Advair Diskus b.i.d. 9. Carvedilol 12.5 b.i.d. 10. Baby aspirin daily. 11. Albuterol inhaler every 4 hours p.r.n. wheezing. FAMILY HISTORY: No inherited diseases. SOCIAL HISTORY: Patient is a smoker of 1-2 packs a day and continues to smoke. Alcohol use is negative. Illicit drug use is negative. She lives alone and does have help from friends, as well as, I think, a caregiver. REVIEW OF SYSTEMS: A comprehensive review of systems was performed and the pertinent positives are indicated above. PHYSICAL EXAMINATION GENERAL: Cachectic, white female. She is in no current distress. VITAL SIGNS: Blood pressure 109/83, pulse is 77 in sinus rhythm, afebrile, saturation on 2 L nasal cannula 89%. HEENT: Reveals poor dental health, but her oral mucosa is moist and the head exam is otherwise negative. NECK: Shows no JVD, no carotid bruits. CHEST: Diminished breath sounds. She has increased AP diameter. No rales or wheezes. HEART: Tones are normal. No audible murmur or gallop. ABDOMEN: Soft with normal bowel sounds, nontender. She has a vertical laparotomy scar which is clean and closed and healing well with no discharges. EXTREMITIES: Legs have no clubbing, cyanosis or edema. NEUROLOGIC: Intact. LABORATORIES: Sodium 134, potassium 3.8, BUN and creatinine normal. Lactic acid normal at 1.4. Troponin is not detectable. White blood count 10.3, hemoglobin 9.5, platelet count 797. No INR was done. Urine was within normal limits. CHEST X-RAY: Basilar atelectasis and small left pleural effusion and cardiomegaly. CT of the chest to rule out pulmonary embolism was done and the dye bolus was incorrectly timed. Therefore, only the proximal to mid segmental arteries were opacified and showed no evidence of large pulmonary emboli; however, the peripheral tree was not evaluated for pulmonary emboli. ELECTROCARDIOGRAM: Atrial fibrillation with a rate of 185, PVC, LVH voltage, diffuse nonspecific ST-T changes. Followup EKG shows normal sinus rhythm at a rate of 80 and it has QS waves in V1 and V2, and inferior T-wave flattening, as well as inverted T waves in V3 through V5, flat T-wave in V6. IMPRESSION 1. Recurrence of paroxysmal atrial fibrillation, now with a rapid ventricular rate, converted after intravenous beta cadence. 2. Hypotension during tachycardia, improved with fluids and after she converted.. 3. Shortness of breath, history of chronic obstructive pulmonary disease. 4. Anemia. 5. Recent laparotomy. 6. Uterine malignancy. PLAN: Admit patient to the ICU on telemetry. Begin empiric oral beta cadence in order to prevent such a rapid rate, if she should have again recurrence of atrial fibrillation. Cycle her troponins to rule out an CT as the cause of the atrial fibrillation. Also evaluate for a pulmonary embolism as the cause for the atrial fibrillation, since she has had recent surgery and immobilized state. Because the CT angio was not definitive, I will order a V/Q scan for the morning. Empiric Lovenox will not be used, after being dosed to 1 dose in the ER, until her diagnosis of a PE or a DVT is confirmed. The reason for this is the recent extensive abdominal and pelvic surgery less than 1 month postop. Begin gentle IV hydration, she can be on a diet. Patient has indicated to me that she has been thinking about her code status and would like to now be a DNR. She will sign a new POLST. Continue with management of her COPD with inhalers; there is no acute exacerbation of this currently, however. Await the plan for treatment of the malignancy. Recommend culturing patient, blood to evaluate for sepsis as a cause of this hypotension. However, there are no clinical signs of infection. The abdominal suture site is healing well. CODE STATUS: DNR. DEEP VENOUS THROMBOSIS PROPHYLAXIS: Foot pumps. ATTESTATION: Patient is expected to be discharged or transferred to another facility within 96 hours: Yes. TD: 10/16/2017 11:00 ISRA
--- NOTE | 2017-10-16 11:56 | Discharge Plan ---
Discharge Plan Disposition: Home, Self Care Condition: Fair Prescriptions: HYDROcod/ACETAM 5/325 [[place] 5/325] 1 tab PO Q4HR PRN #42 tablet PRN Reason: Pain Fluticasone/Salmeterol [Advair 250-50 Diskus] 1 puffs INH BID #1 blst.w.dev Metoprolol Succinate [Toprol Xl] 25 mg PO DAILY #30 tablet Diet: Regular Activity Restrictions: Activity as Tolerated Shower Restrictions: No Driving Restrictions: No Weight Bearing: Full Weight Additional Instructions or Follow Up instructions: You presented to the emergency department with shortness of breath. He was found to be in atrial fibrillation with a rapid ventricular rate. You are also found to be hypoxic requiring increased amount of oxygen. You were treated in the emergency department with IV medications to try to slow down her heart rate eventually converted back into a sinus rhythm and have remained in sinus rhythm since. Your heart rate has remained stable on metoprolol. We have switched your Coreg which were previously taking to metoprolol which she should take once a day which should help control your heart rate and keep you in a sinus rhythm. I have also prescribed you Advair which you had run out of as well as [place] for your postsurgical pain. Please follow-up with the surgeon and your primary care physician. No Smoking: If you smoke, Please STOP! Call for help. Follow-up with: Yung Gay MD [Primary Care Provider] -
[2017-10-16 13:05] VITALS: BP 115/92
--- NOTE | 2017-10-16 15:10 | DISCHARGE SUMMARY ---
Discharge Summary Admit Date: 10/15/17 Discharge Date: 10/16/17 Discharging Provider: Shalom Holland MD Primary Care Provider: Yung Gay MD Code Status: Do Not Attempt Resuscitation Condition at Discharge: Fair Discharge Disposition: 01 Home, Self Care - DIAGNOSES Admission Diagnoses: 1. Recurrence of paroxysmal atrial fibrillation with rapid ventricular rate 2. Hypotension 3. Shortness of air with history of COPD 4. Anemia 5. Recent laparotomy 6. Uterine malignancy Discharge Diagnoses with Status of Each Condition: 1. Paroxysmal atrial fibrillation with rapid ventricular rate: Resolved 2. Hypotension: Resolved 3. History of chronic obstructive pulmonary disease: Stable 4. Anemia: Stable 5. Uterine malignancy: Guarded - HPI History of Present Illness: Patient is a 61-year-old female with a past medical history significant for COPD , tobacco abuse, hypertension, paroxysmal atrial fibrillation, anemia, long- standing abdominal pain, history of pneumothorax, new onset atrial fibrillation March 2017, GI bleed admission with hypotension in April 2017, syncope from anemia in July 2017, and a recent admission here for an incarcerated left inguinal hernia on 10/03/2017, requiring urgent surgery. The patient underwent combined surgery with phlebotomy director and surgery for removal of her uterus that had been found to be malignant on workup. The patient was only home for 6 days recovering from her abdominal surgery that required an open laparotomy when she woke up finding that she had ringing in her ears and near syncope when she stood up. The patient called 911 was brought to the emergency room and found to be in atrial fibrillation with rapid ventricular rate in the 190s. The patient's blood pressure was 80 systolic. The patient was given 2 L of IV fluid in the emergency department and IV Lopressor 5 mg which caused her blood pressure to drop further to 78 and her heart rate only improved slightly to 178. The patient was about to undergo emergency cardioversion when she suddenly converted into sinus rhythm with a heart rate of 90-100 and her blood pressure improved into the 100s. The patient was admitted to the intensive care unit for management of her hypotension and paroxysmal atrial fibrillation with rapid ventricular rate. - HOSPITAL COURSE Hospital Course: While in the intensive care unit the patient was monitored closely on telemetry. The patient had no further episodes of atrial fibrillation remained in sinus rhythm with a rate of between 60 and 80. The patient remained normotensive over the next 24 hours. She had no further symptoms and appeared well. The patient recovered very quickly and a lot sooner than what we had expected. She was able to be discharged home. The patient's Coreg was switched to metoprolol succinate 25 mg daily. The patient was given a prescription for Advair which she stated that she was out of and Bonaparte which she only had 1 tablet left. The patient will follow up with surgery for care of her abdominal wound. The patient will continue to follow with her primary care physician for her chronic medical issues. The patient's chads 2 score is 0 therefore the patient was not placed on any anticoagulation and continued on aspirin. - ALLERGIES Allergies/Adverse Reactions: Allergies Allergy/AdvReac Type Severity Reaction Status Date / Time No Known Drug Allergies Allergy Verified 08/08/17 20:39 - MEDICATIONS Home Medications: Ambulatory Orders Medication Instructions Recorded Confirmed Ipratropium/Albuterol [Combivent 1 puffs INH QID 03/18/17 10/16/17 Respimat] hydroCHLOROthiazide [Hydrodiuril] 12.5 mg PO DAILY 03/18/17 10/16/17 Albuterol 2.5 mg INH Q4H PRN 04/18/17 10/16/17 Ipratropium/Albuterol [Duoneb] 3 ml INH BID PRN 08/09/17 10/16/17 raNITIdine [Zantac] 150 mg PO BID 08/09/17 10/16/17 Lisinopril 40 mg PO DAILY 10/03/17 10/16/17 Aspirin [Aspirin EC] 81 mg PO DAILY 10/04/17 10/16/17 LORazepam [Lorazepam] 0.5 mg PO Q6H PRN 10/04/17 10/16/17 Fluticasone/Salmeterol [Advair 1 puffs INH BID #1 blst.w.dev 10/16/17 250-50 Diskus] HYDROcod/ACETAM 5/325 [[place] 5/325] 1 tab PO Q4HR PRN #42 tablet 10/16/17 Metoprolol Succinate [Toprol Xl] 25 mg PO DAILY #30 tablet 10/16/17 - PHYSICAL EXAM AT DISCHARGE General Appearance: positive: No acute distress, Alert, Other (Thin) Eyes Bilateral: positive: Normal inspection, PERRL, EOMI, No lid inflammation, Conjunctivae nml, No scleral icterus ENT: positive: ENT inspection nml, Pharynx nml, No signs of dehydration. negative: Purulent nasal drainage, Pharyngeal erythema, Oral lesions Neck: positive: Nml inspection, Thyroid nml, No JVD, Trachea midline. negative : Lymphadenopathy (R), Lymphadenopathy (L), Stiff neck, Carotid bruit, Tracheal deviation Respiratory: positive: Chest non-tender, No respiratory distress, Breath sounds nml. negative: Wheezes, Rales, Rhonchi Cardiovascular: positive: Regular rate & rhythm, No murmur, No gallop Peripheral Pulses: positive: 2+ Abdomen: positive: No organomegaly, Nml bowel sounds, Tenderness (Mild, soft around surgical site) Back: positive: Nml inspection. negative: CVA tenderness (R), CVA tenderness (L ) Skin: positive: Color nml, No rash, Warm, Dry. negative: Cyanosis, Diaphoresis , Pallor, Skin rash Extremities: positive: Non-tender, Full ROM, Nml appearance, Pedal edema ( Bilateral) Neurologic/Psychiatric: positive: Oriented x3, CN's nml (2-12), Motor nml, Sensation nml, Mood/affect nml - LABS Result Diagrams: 10/16/17 04:20 10/16/17 04:20 Other Lab Results: Laboratory Results WBC 6.9 x10^3/uL (4.8-10.8) 10/16/17 04:20 RBC 3.13 10^6/uL (4.20-5.40) L 10/16/17 04:20 Hgb 7.8 g/dL (12.0-16.0) L 10/16/17 04:20 Hct 25.9 % (37.0-47.0) L 10/16/17 04:20 MCV 82.8 fL (81.0-99.0) 10/16/17 04:20 MCH 25.0 pg (27.0-31.0) L 10/16/17 04:20 MCHC 30.2 g/dL (32.0-36.0) L 10/16/17 04:20 RDW 22.1 % (12.0-15.0) H 10/16/17 04:20 Plt Count 609 10^3/uL (130-450) H 10/16/17 04:20 MPV 6.2 fL (7.9-10.8) L 10/16/17 04:20 Neut # 3.9 10^3/uL (1.5-6.6) 10/16/17 04:20 Lymph # 2.0 10^3/uL (1.5-3.5) 10/16/17 04:20 [place] # 0.7 10^3/uL (0.0-1.0) 10/16/17 04:20 Eos # 0.3 10^3/uL (0.0-0.7) 10/16/17 04:20 Baso # 0.1 10^3/uL (0.0-0.1) 10/16/17 04:20 Absolute Nucleated RBC 0.00 x10^3/uL 10/16/17 04:20 Nucleated RBC % 0.0 /100WBC 10/16/17 04:20 Manual Slide Review Indicated 10/16/17 04:20 Platelet Estimate INCREASED (>450,000) (NORMAL) 10/16/17 04:20 Platelet Morphology NORMAL APPEARANCE (NORMAL) 10/16/17 04:20 RBC Morph Micro Appear 1+ ANISOCYTOSIS (NORMAL) 1+ POIKILOCYTOSIS (NORMAL) 1 + MACROCYTOSIS (NORMAL) 1+ MICROCYTOSIS (NORMAL) 2+ HYPOCHROMASIA (NORMAL) 10/16/17 04:20 RBC Morph Micro Appear 1+ ANISOCYTOSIS (NORMAL) 1+ POIKILOCYTOSIS (NORMAL) 1 + MACROCYTOSIS (NORMAL) 1+ MICROCYTOSIS (NORMAL) 2+ HYPOCHROMASIA (NORMAL) 10/16/17 04:20 RBC Morph Micro Appear 1+ ANISOCYTOSIS (NORMAL) 1+ POIKILOCYTOSIS (NORMAL) 1 + MACROCYTOSIS (NORMAL) 1+ MICROCYTOSIS (NORMAL) 2+ HYPOCHROMASIA (NORMAL) 10/16/17 04:20 RBC Morph Micro Appear 1+ ANISOCYTOSIS (NORMAL) 1+ POIKILOCYTOSIS (NORMAL) 1 + MACROCYTOSIS (NORMAL) 1+ MICROCYTOSIS (NORMAL) 2+ HYPOCHROMASIA (NORMAL) 10/16/17 04:20 RBC Morph Micro Appear 1+ ANISOCYTOSIS (NORMAL) 1+ POIKILOCYTOSIS (NORMAL) 1 + MACROCYTOSIS (NORMAL) 1+ MICROCYTOSIS (NORMAL) 2+ HYPOCHROMASIA (NORMAL) 10/16/17 04:20 VBG pH 7.296 (7.31-7.41) L 10/16/17 07:43 Ionized Calcium 1.08 mmol/L (1.15-1.33) L 10/16/17 07:43 Sodium 138 mmol/L (135-145) 10/16/17 04:20 Potassium 3.9 mmol/L (3.5-5.0) 10/16/17 04:20 Chloride 103 mmol/L (101-111) 10/16/17 04:20 Carbon Dioxide 29 mmol/L (21-32) 10/16/17 04:20 Anion Gap 6.0 (6-13) 10/16/17 04:20 BUN 11 mg/dL (6-20) 10/16/17 04:20 Creatinine 0.6 mg/dL (0.4-1.0) 10/16/17 04:20 Estimated GFR (MDRD) 101 (>89) 10/16/17 04:20 Glucose 106 mg/dL (70-100) H 10/16/17 04:20 Lactic Acid 1.4 mmol/L (0.5-2.2) 10/15/17 13:43 Calcium 7.6 mg/dL (8.5-10.3) L 10/16/17 04:20 Magnesium 1.6 mg/dL (1.7-2.8) L 10/16/17 04:20 Troponin I 0.04 ng/mL (<0.49) 10/16/17 04:20 Urine Color YELLOW 10/15/17 17:20 Urine Clarity CLEAR (CLEAR) 10/15/17 17:20 Urine pH 5.5 PH (5.0-7.5) 10/15/17 17:20 Ur Specific [place] 1.010 (1.002-1.030) 10/15/17 17:20 Urine Protein NEGATIVE mg/dL (NEGATIVE) 10/15/17 17:20 Urine Glucose (UA) NEGATIVE mg/dL (NEGATIVE) 10/15/17 17:20 Urine Ketones NEGATIVE mg/dL (NEGATIVE) 10/15/17 17:20 Urine Occult Blood NEGATIVE (NEGATIVE) 10/15/17 17:20 Urine Nitrite NEGATIVE (NEGATIVE) 10/15/17 17:20 Urine Bilirubin NEGATIVE (NEGATIVE) 04/30/18 17:20 Urine Urobilinogen 0.2 (NORMAL) E.U./dL (NORMAL) 10/15/17 17:20 Ur Leukocyte Esterase NEGATIVE (NEGATIVE) 10/15/17 17:20 Ur Microscopic Review NOT INDICATED 10/15/17 17:20 Urine Culture Comments NOT INDICATED 10/15/17 17:20 Blood Type O POSITIVE 10/15/17 17:40 Antibody Screen NEGATIVE 10/15/17 17:40 - DIAGNOSTIC IMAGING Diagnostic Imaging Results: Final report reviewed Diagnostic Imaging Results Comments: CT angiogram chest Impression: 1. No evidence of acute pulmonary embolism through the proximal or mid segmental branch level. Portion of distal vessel within the lung bases are adequately assessed secondary to contrast bolus timing. There is no evidence of central embolism 2. There is no evidence of thoracic aortic aneurysm 3. There is cardiomegaly 4. There is left greater than right base peribronchial and dependent consolidation with associated volume loss. There is small left pleural effusion. Findings may represent pneumonia and/or atelectasis 5. No evidence of pneumothorax Chest x-ray impression: 1. There is mild cardiomegaly 2. There is bibasilar atelectasis. There is a small left pleural effusion 3. There is no pneumothorax - FOLLOW UP Follow Up: Patient was follow-up with surgery for management of her surgical wound. She will follow-up with her primary care physician for management of her chronic medical problems. The patient was prescribed Bonaparte as she only had 1 tablet left and was still waiting to see surgery. She also had her Coreg switched to metoprolol as Coreg has both beta-1 and beta-2 activity which could cause bronchoconstriction and metoprolol is specific to beta-1 and therefore in a patient with COPD was a better drug choice. - TIME SPENT Time Spent in Discharge (Minutes): 45
== END 2017-10-16 13:52 | disposition home or self-care (01) | DRG 309 ==
LOC: EDUNIT# → ED 12:52 → ICU 17:24 → EDUNIT# 17:24
PROVIDERS: ADMIT Internal Medicine; ATTEND Internal Medicine
DX: I48.0 Paroxysmal atrial fibrillation (principal); R64 Cachexia; Z68.1 Body mass index [BMI] 19.9 or less, adult; I95.2 Hypotension due to drugs; T44.7X5A Adverse effect of beta-adrenoreceptor antagonists, initial encounter; Y92.238 Other place in hospital as the place of occurrence of the external cause; J44.9 Chronic obstructive pulmonary disease, unspecified; R09.02 Hypoxemia; D64.9 Anemia, unspecified; C55 Malignant neoplasm of uterus, part unspecified; G89.18 Other acute postprocedural pain; I10 Essential (primary) hypertension; F41.9 Anxiety disorder, unspecified; F17.210 Nicotine dependence, cigarettes, uncomplicated; Z66 Do not resuscitate; Z79.82 Long term (current) use of aspirin; Z90.710 Acquired absence of both cervix and uterus; Z90.79 Acquired absence of other genital organ(s); Z90.722 Acquired absence of ovaries, bilateral
CPT/HCPCS: 36415; 71045; 71275; 80048; 81001; 81003; 82330; 83605; 83735; 84484; 85025; 86850; 86900; 86901; 87040; 87086; 87150; 93005; 93306; 94640; 96361; 96372; 96374; 99284

== ENCOUNTER 2017-12-05 06:29 | Outpatient (CLI) | payer OTHER | END 2017-12-05 06:30 | disposition critical access hospital (66) | LOC: EMS 06:29 | PROVIDERS: ATTEND Surgery | DX: R06.00 Dyspnea, unspecified (principal); R10.9 Unspecified abdominal pain | CPT/HCPCS: A0425; A0427 ==

== ENCOUNTER 2017-12-05 06:49 | Emergency (ER) | payer OTHER ==
--- NOTE | 2017-12-05 08:02 | ED Physician Documentation ---
PD HPI DYSPNEA - Stated complaint Stated Complaint: ABD PX - Chief complaint Chief Complaint: Resp - History obtained from History obtained from: Patient - History of Present Illness Timing - onset: Today Timing - onset during: Rest Timing - duration: Minutes Timing - details: Now resolved Improved by: Inhaler/neb Worsened by: Exertion, Coughing Associated symptoms: Wheezing Similar symptoms before: Diagnosis (COPD) Recently seen: Admitted, Surgery - Additional information Additional information: 61-year-old fit female with a history of COPD and intermittent atrial fibrillation has been at home recovering from her recent surgical procedures she developed acute shortness of breath this morning and called the ambulance. They were able to administer a DuoNeb treatment and on arrival here the patient is improved. The patient has a history previously of atrial fibrillation with rapid ventricular response and most recently spontaneously converted on admission in October. Review of Systems Constitutional: denies: Fever Eyes: denies: Decreased vision Ears: denies: Ear pain Nose: denies: Congestion Throat: denies: Sore throat Cardiac: reports: Palpitations Respiratory: reports: Dyspnea, Cough GI: reports: Abdominal Pain : denies: Dysuria Skin: denies: Rash Musculoskeletal: denies: Neck pain, Back pain, Extremity pain PD PAST MEDICAL HISTORY - Past Medical History Past Medical History: Yes Cardiovascular: Atrial fibrillation, Hypertension Respiratory: Asthma, COPD Endocrine/Autoimmune: None GI: Other TOUR ESCORT: Uterine cancer : None HEENT: None Psych: Anxiety Musculoskeletal: None Derm: None - Past Surgical History Past Surgical History: No General: Appendectomy, Other /TOUR ESCORT: Hysterectomy, Oophrectomy - Present Medications Home Medications: Ambulatory Orders Medication Instructions Recorded Confirmed Ipratropium/Albuterol [Combivent 1 puffs INH QID 03/18/17 10/16/17 Respimat] hydroCHLOROthiazide [Hydrodiuril] 12.5 mg PO DAILY 03/18/17 10/16/17 Albuterol 2.5 mg INH Q4H PRN 04/18/17 10/16/17 Ipratropium/Albuterol [Duoneb] 3 ml INH BID PRN 08/09/17 10/16/17 raNITIdine [Zantac] 150 mg PO BID 08/09/17 10/16/17 Lisinopril 40 mg PO DAILY 10/03/17 10/16/17 Aspirin [Aspirin EC] 81 mg PO DAILY 10/04/17 10/16/17 LORazepam [Lorazepam] 0.5 mg PO Q6H PRN 10/04/17 10/16/17 Fluticasone/Salmeterol [Advair 1 puffs INH BID #1 blst.w.dev 10/16/17 250-50 Diskus] HYDROcod/ACETAM 5/325 [[place] 5/325] 1 tab PO Q4HR PRN #42 tablet 10/16/17 Metoprolol Succinate [Toprol Xl] 25 mg PO DAILY #30 tablet 10/16/17 Azithromycin [Zithromax] 250 mg PO DAILY #6 tablet 12/05/17 - Allergies Allergies/Adverse Reactions: Allergies Allergy/AdvReac Type Severity Reaction Status Date / Time No Known Drug Allergies Allergy Verified 08/08/17 20:39 - Social History Does the pt smoke?: No Smoking Status: Never smoker Does the pt drink ETOH?: No Does the pt have substance abuse?: No - Immunizations Immunizations are current?: Yes - POLST Patient has POLST: No POLST Status: Full Code PD ED PE NORMAL - Vitals Vital signs reviewed: Yes (tachy) - General General: Alert and oriented X 3, No acute distress, Well developed/nourished - HEENT HEENT: Atraumatic, PERRL, EOMI - Neck Neck: Supple, no meningeal sign - Cardiac Cardiac: RRR, No murmur - Respiratory Respiratory: No respiratory distress, Other (dimished breath sounds with bibasilar rhonchi) - Abdomen Abdomen: Soft - Back Back: No CVA TTP, No spinal TTP - Derm Derm: Normal color, Warm and dry, No rash - Extremities Extremities: No deformity, No edema - Neuro Neuro: No motor deficit, No sensory deficit Eye Opening: Spontaneous Motor: Obeys Commands Verbal: Oriented GCS Score: 15 - Psych Psych: Normal mood, Normal affect Results - Vitals Vitals: Vital Signs - 24 hr 12/05/17 12/05/17 06:51 11:20 Temperature 36.6 C Heart Rate 116 H 79 Respiratory 18 16 Rate Blood Pressure 128/73 125/84 H O2 Saturation 95 95 Oxygen O2 Source Room air - EKG (time done) 0831 Rate: Rate (enter#) (75) Rhythm: LAE QRS: LVH Ischemia: Q waves (anterior) Compare to prior EKG: Changed from prior EKG (SPT 10-15-17 rhythm has converted to sinus and the rate has slowed. ) Computer interpretation: Agree with computer - Labs Labs: Laboratory Tests 12/05/17 12/05/17 12/05/17 08:09 08:09 08:09 WBC 5.6 RBC 4.14 L Hgb 8.6 L Hct 30.1 L MCV 72.6 L MCH 20.8 L MCHC 28.7 L RDW 20.6 H Plt Count 502 H MPV 7.2 L Neut # (Auto) 4.3 Lymph # (Auto) 0.7 L [place] # (Auto) 0.4 Eos # (Auto) 0.1 Baso # (Auto) 0.1 Absolute Nucleated RBC 0.01 Nucleated RBC % 0.2 Manual Slide Review Indicated Platelet Morphology 1+ LARGE PLATELETS RBC Morph Micro Appear 3+ HYPOCHROMASIA Sodium 136 Potassium 4.3 Chloride 99 L Carbon Dioxide 29 Anion Gap 8.0 BUN 17 Creatinine 0.6 Estimated GFR (MDRD) 101 Glucose 107 H Calcium 9.1 Total Bilirubin 0.7 AST 17 ALT < 10 L Alkaline Phosphatase 67 Troponin I < 0.04 Total Protein 7.0 Albumin 3.8 Globulin 3.2 Albumin/Globulin Ratio 1.2 Lipase 23 Urine Color Urine Clarity Urine pH Ur Specific [place] Urine Protein Urine Glucose (UA) Urine Ketones Urine Occult Blood Urine Nitrite Urine Bilirubin Urine Urobilinogen Ur Leukocyte Esterase Urine RBC Urine WBC Ur Squamous Epith Cells Urine Bacteria Urine Casts Ur Microscopic Review Urine Culture Comments 12/05/17 09:36 WBC RBC Hgb Hct MCV MCH MCHC RDW Plt Count MPV Neut # (Auto) Lymph # (Auto) [place] # (Auto) Eos # (Auto) Baso # (Auto) Absolute Nucleated RBC Nucleated RBC % Manual Slide Review Platelet Morphology RBC Morph Micro Appear Sodium Potassium Chloride Carbon Dioxide Anion Gap BUN Creatinine Estimated GFR (MDRD) Glucose Calcium Total Bilirubin AST ALT Alkaline Phosphatase Troponin I Total Protein Albumin Globulin Albumin/Globulin Ratio Lipase Urine Color YELLOW Urine Clarity CLEAR Urine pH 5.5 Ur Specific [place] 1.015 Urine Protein NEGATIVE Urine Glucose (UA) NEGATIVE Urine Ketones NEGATIVE Urine Occult Blood NEGATIVE Urine Nitrite NEGATIVE Urine Bilirubin NEGATIVE Urine Urobilinogen 0.2 (NORMAL) Ur Leukocyte Esterase TRACE H Urine RBC None Seen Urine WBC 4-5 Ur Squamous Epith Cells NONE SEEN Urine Bacteria Rare Urine Casts 0-2 Hyaline Casts Ur Microscopic Review INDICATED Urine Culture Comments INDICATED - Rads (name of study) 2 veiw chest Radiology: Prelim report reviewed (Impression: 1. Bilateral hyperinflation, increased. Mild left and very mild right basilar atelectasis or infiltrate, mildly improved. Small focus of new probable right pulmonary atelectasis. Stable mild cardiac enlargement.), EMP read indepedently, See rad report Procedures - IVC sono (time) 0745 Bedside IVC sono: IVC measures (cm) (1.27), IVC collapsed c insp (cm) (0.45), Dehydration (mild) PD MEDICAL DECISION MAKING - ED course Complexity details: reviewed old records, reviewed results, re-evaluated patient , considered differential, d/w patient ED course: 61-year-old female with a history of COPD and intermittent atrial fibrillation appears to have had an episode of atrial fibrillation this morning and she is converted at the time of evaluation in the emergency department. She did have some respiratory difficulty and this was improved with use of a DuoNeb treatment. She is treated for exacerbation of COPD. I am uncertain as to whether the x-ray findings represent any evidence of infection and I was unable to convince the patient to follow-up with her primary care physician in 2 days time for reevaluation and have thus placed her on a course of antibiotic. - Sepsis Event Vital Signs: Vital Signs - 24 hr 12/05/17 12/05/17 06:51 11:20 Temperature 36.6 C Heart Rate 116 H 79 Respiratory 18 16 Rate Blood Pressure 128/73 125/84 H O2 Saturation 95 95 Oxygen O2 Source Room air Departure - Departure Disposition: 01 Home, Self Care Clinical Impression: COPD (chronic obstructive pulmonary disease) Qualifiers: COPD type: COPD with acute exacerbation Qualified Code(s): J44.1 - Chronic obstructive pulmonary disease with (acute) exacerbation Condition: Stable Instructions: ED COPD Flare Follow-Up: Yung Gay MD [Primary Care Provider] - Prescriptions: Azithromycin [Zithromax] 250 mg PO DAILY #6 tablet Discharge Date/Time: 12/05/17 11:20
[2017-12-05] MEDS ORDERED: SODIUM CHLORIDE 0.9% 500 ML IV ONE (08:11)
[2017-12-05 08:26] LABS: ALBUMIN 3.8 g/dL (3.2-5.5); ALBUMIN/GLOBULIN RATIO 1.2 (1.0-2.2); ALKALINE PHOSPHATASE 67 IU/L (42-121); ALT ALANINE AMINOTRANSFERASE < 10 IU/L (10-60); AST ASPARTATE AMINOTRANSFERASE 17 IU/L (10-42); BILIRUBIN,TOTAL 0.7 mg/dL (0.2-1.0); BUN - BLOOD UREA NITROGEN 17 mg/dL (6-20); CALCIUM 9.1 mg/dL (8.5-10.3); CARBON DIOXIDE - CO2 29 mmol/L (21-32); CHLORIDE 99 mmol/L (101-111); CREATININE 0.6 mg/dL (0.4-1.0); GFR - MDRD 101 (>89); GLUCOSE 107 mg/dL (70-100); LIPASE 23 U/L (22-51); SODIUM 136 mmol/L (135-145)
[2017-12-05 09:15] LABS: BASOPHILS # (AUTO) 0.1 10^3/uL (0.0-0.1); BASOPHILS % (AUTO) 1.8 %; EOSINOPHILS # (AUTO) 0.1 10^3/uL (0.0-0.7); HGB - HEMOGLOBIN 8.6 g/dL (12.0-16.0); LYMPHOCYTES # (AUTO) 0.7 10^3/uL (1.5-3.5); LYMPHOCYTES % (AUTO) 13.2 %; MEAN CORPUSCULAR HEMOGLOBIN 20.8 pg (27.0-31.0); MEAN CORPUSCULAR HGB CONC 28.7 g/dL (32.0-36.0); MEAN CORPUSCULAR VOLUME 72.6 fL (81.0-99.0); MEAN PLATELET VOLUME 7.2 fL (7.9-10.8); MONOCYTES # (AUTO) 0.4 10^3/uL (0.0-1.0); NEUTROPHILS # (AUTO) 4.3 10^3/uL (1.5-6.6); PLT - PLATELET COUNT 502 10^3/uL (130-450); RED BLOOD COUNT 4.14 10^6/uL (4.20-5.40); RED CELL DISTRIBUTION WIDTH 20.6 % (12.0-15.0); WHITE BLOOD COUNT 5.6 x10^3/uL (4.8-10.8)
--- NOTE | 2017-12-05 09:17 | XRAY Report ---
Procedure Date: 12/05/2017 Accession Number: [id number] / [id number] Procedure: XR - Chest 2 View X-Ray CPT Code: 03308 FULL RESULT: EXAM: CHEST RADIOGRAPHY EXAM DATE: 12/05/2017 09:00 AM. CLINICAL HISTORY: [place]. COMPARISON: Single view 10/15/2017. Most recent two-view comparison 10/07/2017. TECHNIQUE: 2 views. FINDINGS: Lungs/Pleura: Bilateral hyperinflation with interval increased lung volumes. Mild left and very mild right bilateral lower lung opacities, mildly improved. Focal area of increased probable atelectasis within the lateral right mid to lower lung. No pleural effusion or pneumothorax demonstrated. Mediastinum: Stable mild cardiac enlargement. Other: None. IMPRESSION: 1. Bilateral hyperinflation, increased. 2. Mild left and very mild right basilar atelectasis or infiltrate, mildly improved. 3. Small focus of new probable right pulmonary atelectasis. 4. Stable mild cardiac enlargement. RADIA
[2017-12-05 10:11] LABS: BILIRUBIN,URINE NEGATIVE (NEGATIVE); GLUCOSE, URINE (UA) NEGATIVE (NEGATIVE); KETONES,URINE (UA) NEGATIVE (NEGATIVE); LEUKOCYTE ESTERASE, URINE TRACE (NEGATIVE); NITRITE,URINE NEGATIVE (NEGATIVE); OCCULT BLOOD,URINE NEGATIVE (NEGATIVE); PH,URINE 5.5 PH (5.0-7.5); PROTEIN,URINE NEGATIVE (NEGATIVE); UROBILINOGEN,URINE 0.2 (NORMAL) E.U./dL (NORMAL)
[2017-12-05 10:21] LABS: CLARITY,URINE CLEAR (CLEAR)
[2017-12-05 10:22] LABS: BACTERIA,URINE Rare /HPF (None Seen); CASTS, URINE 0-2 Hyaline Casts /LPF; RBC,URINE None Seen /HPF (0-5); SQUAMOUS EPITHELIAL CELL,UR NONE SEEN (<= Few)
[2017-12-05 10:25] LABS: PLATELET MORPHOLOGY 1+ LARGE PLATELETS (NORMAL)
[2017-12-05 11:21] VITALS: BP 125/84
== END 2017-12-05 11:20 | disposition home or self-care (01) ==
LOC: EDUNIT# → ED 06:49
DX: J44.1 Chronic obstructive pulmonary disease with (acute) exacerbation (principal); I48.91 Unspecified atrial fibrillation; I10 Essential (primary) hypertension; J98.11 Atelectasis; Z79.82 Long term (current) use of aspirin; Z79.899 Other long term (current) drug therapy; J45.909 Unspecified asthma, uncomplicated
CPT/HCPCS: 36415; 71046; 80053; 81001; 81003; 83690; 84484; 85025; 87086; 93005; 96360; 99283; 99284

== ENCOUNTER 2018-01-21 18:21 | Outpatient (CLI) | payer OTHER | END 2018-01-21 18:22 | disposition critical access hospital (66) | LOC: EMS 18:21 | PROVIDERS: ATTEND Surgery | DX: R06.02 Shortness of breath (principal); R07.89 Other chest pain | CPT/HCPCS: A0425; A0427 ==

== ENCOUNTER 2018-01-21 18:44 | Inpatient (IN) | payer OTHER ==
--- NOTE | 2018-01-21 19:23 | ED Physician Documentation ---
PD HPI DYSPNEA - Stated complaint Stated Complaint: SOA - Chief complaint Chief Complaint: Resp - History obtained from History obtained from: Patient, EMS - History of Present Illness Timing - onset: Today (This is a very vague 62-year-old woman with history of atrial fibrillation, COPD, long history of abdominal pain. She presents with nonspecific symptoms today including a cough which is productive but she has not looked at the sputum to know what looks like, shortness of breath, abdominal pain but that is not new, and a sore throat but she points at the lower sternum when she says she has a sore throat. She says it feels like she is going to go into A. fib. She says she is on blood thinners but does not know which one and then there is none listed on her medication list. She was hypotensive in route and received a breathing treatment in route and refused Solu-Medrol in route.) Review of Systems Ten Systems: 10 systems reviewed and negative Constitutional: reports: Fatigue. denies: Fever Nose: denies: Rhinorrhea / runny nose, Congestion Throat: reports: Sore throat (In her chest) Cardiac: denies: Chest pain / pressure, Palpitations Respiratory: reports: Dyspnea, Cough GI: reports: Abdominal Pain (Chronic), Nausea, Diarrhea (She felt like she was going to have the runs but never did) : denies: Dysuria, Frequency PD PAST MEDICAL HISTORY - Past Medical History Past Medical History: Yes Cardiovascular: Atrial fibrillation, Hypertension Respiratory: Asthma, COPD Endocrine/Autoimmune: None GI: Other DENTAL APPLIANCE FIXER: Uterine cancer : None HEENT: None Psych: Anxiety Musculoskeletal: None Derm: None - Past Surgical History Past Surgical History: No General: Appendectomy, Other /DENTAL APPLIANCE FIXER: Hysterectomy, Oophrectomy - Present Medications Home Medications: Ambulatory Orders Medication Instructions Recorded Confirmed Ipratropium/Albuterol [Combivent 1 puffs INH QID 03/18/17 10/16/17 Respimat] hydroCHLOROthiazide [Hydrodiuril] 12.5 mg PO DAILY 03/18/17 10/16/17 Albuterol 2.5 mg INH Q4H PRN 04/18/17 10/16/17 Ipratropium/Albuterol [Duoneb] 3 ml INH BID PRN 08/09/17 10/16/17 raNITIdine [Zantac] 150 mg PO BID 08/09/17 10/16/17 Lisinopril 40 mg PO DAILY 10/03/17 10/16/17 Aspirin [Aspirin EC] 81 mg PO DAILY 10/04/17 10/16/17 LORazepam [Lorazepam] 0.5 mg PO Q6H PRN 10/04/17 10/16/17 Fluticasone/Salmeterol [Advair 1 puffs INH BID #1 blst.w.dev 10/16/17 250-50 Diskus] HYDROcod/ACETAM 5/325 [[place] 5/325] 1 tab PO Q4HR PRN #42 tablet 10/16/17 Metoprolol Succinate [Toprol Xl] 25 mg PO DAILY #30 tablet 10/16/17 Azithromycin [Zithromax] 250 mg PO DAILY #6 tablet 12/05/17 - Allergies Allergies/Adverse Reactions: Allergies Allergy/AdvReac Type Severity Reaction Status Date / Time No Known Drug Allergies Allergy Verified 01/21/18 18:56 - Social History Does the pt smoke?: Yes Smoking Status: Current every day smoker Does the pt drink ETOH?: No Does the pt have substance abuse?: No - Family History Family history: reports: Non contributory - Immunizations Immunizations are current?: Yes - POLST Patient has POLST: No POLST Status: Full Code PD ED PE NORMAL - Vitals Vital signs reviewed: Yes - General General: Alert and oriented X 3, Other (She is thin and cachectic, although she is alert and oriented she is a very tangential historian who answers incredibly vaguely and it is hard to pin her down on any specific answer.) - HEENT HEENT: PERRL, EOMI, Pharynx benign - Neck Neck: Supple, no meningeal sign, No bony TTP - Cardiac Cardiac: Other (Rapid and regular heart rate without murmur) - Respiratory Respiratory: Other (Somewhat tachypneic with loud rhonchi and crackles at both bases) - Abdomen Abdomen: Non tender (With extensive laparotomy scar) - Derm Derm: Normal color, Warm and dry - Extremities Extremities: No edema, No calf tenderness / cord - Neuro Neuro: Alert and oriented X 3, Normal speech Eye Opening: Spontaneous Motor: Obeys Commands Verbal: Oriented GCS Score: 15 Results - Vitals Vitals: Vital Signs - 24 hr 01/21/18 01/21/18 01/21/18 18:53 19:06 19:27 Temperature 37.0 C Heart Rate 120 H 114 H 106 H Respiratory 25 H 22 22 Rate Blood Pressure 73/47 L 81/62 L 98/25 L O2 Saturation 100 96 99 01/21/18 01/21/18 01/21/18 19:58 21:21 21:31 Temperature 36.7 C 36.9 C Heart Rate 104 H 106 H 103 H Respiratory 18 18 16 Rate Blood Pressure 82/55 L 93/65 88/68 L O2 Saturation 96 99 100 01/21/18 21:39 Temperature 36.6 C Heart Rate 109 H Respiratory 18 Rate Blood Pressure 92/69 O2 Saturation 97 Oxygen O2 Source Nasal cannula Oxygen Flow Rate 3 - EKG (time done) 1856 Rate: Rate (enter#) (110) Rhythm: Sinus tachycardia [place]: Normal Intervals: Normal ND QRS: LVH Ischemia: Non specific changes (She has lateral ST depression which is most market in V6, this is significantly changed from her last EKG dated December 05, but at that time she was not tachycardic. Compared with EKG prior to that, October 03 where she was tachycardic in in a sinus rhythm, the ST depression is similar.). No: ST elevation c/w ischemia Computer interpretation: Agree with computer - Labs Labs: Laboratory Tests 01/21/18 01/21/18 01/21/18 19:10 19:10 19:10 WBC 9.3 RBC 3.05 L Hgb 5.5 L* Hct 20.5 L MCV 67.3 L MCH 18.1 L MCHC 26.9 L RDW 20.8 H Plt Count 434 MPV 6.9 L Neut # (Auto) Not Reportable Lymph # (Auto) Not Reportable [place] # (Auto) Not Reportable Eos # (Auto) Not Reportable Baso # (Auto) Not Reportable Absolute Nucleated RBC Not Reportable Total Counted 100 Band Neuts % (Manual) 0 Abnorm Lymph % (Manual) 0 Nucleated RBC % Not Reportable Neutrophils # (Manual) 7.7 H Lymphocytes # (Manual) 0.6 L Monocytes # (Manual) 0.7 Eosinophils # (Manual) 0.3 Basophils # (Manual) 0.1 Manual Slide Review Indicated Platelet Estimate NORMAL (130-450,000) Platelet Morphology NORMAL APPEARANCE RBC Morph Micro Appear 1+ BASO STIPPLING PT INR VBG pH VBG pCO2 VBG pO2 VBG HCO3 VBG Total CO2 VBG O2 Saturation VBG Base Excess Sodium 137 Potassium 4.1 Chloride 104 Carbon Dioxide 25 Anion Gap 8.0 BUN 17 Creatinine 0.6 Estimated GFR (MDRD) 101 Glucose 125 H Lactic Acid 2.1 Calcium 7.9 L Total Bilirubin 0.7 AST 16 ALT < 10 L Alkaline Phosphatase 63 Troponin I Total Protein 5.2 L Albumin 3.1 L Globulin 2.1 Albumin/Globulin Ratio 1.5 Lipase 29 Blood Type Antibody Screen Crossmatch IS Only 01/21/18 01/21/18 01/21/18 19:10 19:10 19:50 WBC RBC Hgb Hct MCV MCH MCHC RDW Plt Count MPV Neut # (Auto) Lymph # (Auto) [place] # (Auto) Eos # (Auto) Baso # (Auto) Absolute Nucleated RBC Total Counted Band Neuts % (Manual) Abnorm Lymph % (Manual) Nucleated RBC % Neutrophils # (Manual) Lymphocytes # (Manual) Monocytes # (Manual) Eosinophils # (Manual) Basophils # (Manual) Manual Slide Review Platelet Estimate Platelet Morphology RBC Morph Micro Appear PT 12.6 INR 1.1 VBG pH VBG pCO2 VBG pO2 VBG HCO3 VBG Total CO2 VBG O2 Saturation VBG Base Excess Sodium Potassium Chloride Carbon Dioxide Anion Gap BUN Creatinine Estimated GFR (MDRD) Glucose Lactic Acid Calcium Total Bilirubin AST ALT Alkaline Phosphatase Troponin I < 0.04 Total Protein Albumin Globulin Albumin/Globulin Ratio Lipase Blood Type O POSITIVE Antibody Screen NEGATIVE Crossmatch IS Only See Detail 01/21/18 19:50 WBC RBC Hgb Hct MCV MCH MCHC RDW Plt Count MPV Neut # (Auto) Lymph # (Auto) [place] # (Auto) Eos # (Auto) Baso # (Auto) Absolute Nucleated RBC Total Counted Band Neuts % (Manual) Abnorm Lymph % (Manual) Nucleated RBC % Neutrophils # (Manual) Lymphocytes # (Manual) Monocytes # (Manual) Eosinophils # (Manual) Basophils # (Manual) Manual Slide Review Platelet Estimate Platelet Morphology RBC Morph Micro Appear PT INR VBG pH 7.257 L VBG pCO2 58.5 H VBG pO2 36.1 VBG HCO3 25.5 VBG Total CO2 27.3 VBG O2 Saturation 62.3 VBG Base Excess -1.6 Sodium Potassium Chloride Carbon Dioxide Anion Gap BUN Creatinine Estimated GFR (MDRD) Glucose Lactic Acid Calcium Total Bilirubin AST ALT Alkaline Phosphatase Troponin I Total Protein Albumin Globulin Albumin/Globulin Ratio Lipase Blood Type Antibody Screen Crossmatch IS Only PD MEDICAL DECISION MAKING - ED course ED course: This is a 62-year-old woman presents by ambulance for weakness, dyspnea and potential COPD exacerbation by exam. He is tachycardic and hypotensive. She is a vague historian so it is hard to tell exactly what is ailing her. This seems similar to her presentation of October 15, however at that time she was in atrial fibrillation which she has not now. We were hydrating her and ordered a breathing treatment while her labs are pending. She got up to the commode and had a large dark diarrheal bowel movement that was very guaiac positive. Blood was crossed and a second IV Protonix was ordered. The surgeon was paged for consultation at 7:[address] Borja quickly called back and will consult and plans to do an EGD tomorrow. We reviewed the last EGD results from last year. Call to Dr. Bennett for admission at 7:[address] Bennett accepted patient to her service. We discussed potentially a central line, and I agreed to do so if she stayed hypotensive after blood, however after completion of the first unit of blood her blood pressure was 100/ 60. - Critical Care Time(min): 45 Time Includes: Direct patient care, Review records, Reassess patient, Document care, Coordinate care, Medical consult Data interpretation: Labs Procedures included in critical care time: Peripheral IV Procedures excluded from critical care time: EKG - Sepsis Event Vital Signs: Vital Signs - 24 hr 01/21/18 01/21/18 01/21/18 18:53 19:06 19:27 Temperature 37.0 C Heart Rate 120 H 114 H 106 H Respiratory 25 H 22 22 Rate Blood Pressure 73/47 L 81/62 L 98/25 L O2 Saturation 100 96 99 01/21/18 01/21/18 01/21/18 19:58 21:21 21:31 Temperature 36.7 C 36.9 C Heart Rate 104 H 106 H 103 H Respiratory 18 18 16 Rate Blood Pressure 82/55 L 93/65 88/68 L O2 Saturation 96 99 100 01/21/18 21:39 Temperature 36.6 C Heart Rate 109 H Respiratory 18 Rate Blood Pressure 92/69 O2 Saturation 97 Oxygen O2 Source Nasal cannula Oxygen Flow Rate 3 Departure - Departure Disposition: 66 [facility] DC/Xfer Clinical Impression: Gastrointestinal bleeding Qualifiers: GI bleed type/associated pathology: unspecified gastrointestinal hemorrhage type Qualified Code(s): K92.2 - Gastrointestinal hemorrhage, unspecified Anemia Qualifiers: Anemia type: unspecified type Qualified Code(s): D64.9 - Anemia, unspecified Hypotension Qualifiers: Hypotension type: hypotension due to hypovolemia Qualified Code(s): I95.89 - Other hypotension; E86.1 - Hypovolemia; E86.1 - Hypovolemia Condition: Critical
[2018-01-21 19:31] LABS: INR 1.1 (0.8-1.2); PT - PROTHROMBIN TIME 12.6 secs (9.9-12.6)
[2018-01-21] MEDS ORDERED: IOPAMIDOL-300 100 ML VIAL ONE (19:33)
[2018-01-21 19:36] LABS: ALBUMIN 3.1 g/dL (3.2-5.5); ALBUMIN/GLOBULIN RATIO 1.5 (1.0-2.2); ALKALINE PHOSPHATASE 63 IU/L (42-121); ALT ALANINE AMINOTRANSFERASE < 10 IU/L (10-60); AST ASPARTATE AMINOTRANSFERASE 16 IU/L (10-42); BILIRUBIN,TOTAL 0.7 mg/dL (0.2-1.0); BUN - BLOOD UREA NITROGEN 17 mg/dL (6-20); CALCIUM 7.9 mg/dL (8.5-10.3); CARBON DIOXIDE - CO2 25 mmol/L (21-32); CHLORIDE 104 mmol/L (101-111); CREATININE 0.6 mg/dL (0.4-1.0); GFR - MDRD 101 (>89); GLUCOSE 125 mg/dL (70-100); LIPASE 29 U/L (22-51); SODIUM 137 mmol/L (135-145); TOTAL PROTEIN 5.2 g/dL (6.7-8.2)
--- NOTE | 2018-01-21 19:42 | XRAY Report ---
Procedure Date: 01/21/2018 Accession Number: [id number] / [id number] Procedure: XR - Chest 1 View X-Ray CPT Code: 45442 FULL RESULT: EXAM: CHEST RADIOGRAPHY EXAM DATE: 01/21/2018 07:11 PM. CLINICAL HISTORY: Dyspnea. COMPARISON: 12/05/2017. TECHNIQUE: 1 view. FINDINGS: Lungs/Pleura: Lungs are mildly hyperinflated. No focal opacities. No pneumothorax or effusions. Subsegmental atelectasis or scarring at the lateral left lung base noted. Mediastinum: Stable cardiac silhouette. Other: None. IMPRESSION: 1. No acute pulmonary process. 2. Probable COPD. Possible scarring or atelectasis at left lateral lung base. RADIA
[2018-01-21 19:43] LABS: BASOPHILS % (AUTO) 0.7 %; MEAN CORPUSCULAR HEMOGLOBIN 18.1 pg (27.0-31.0); MEAN CORPUSCULAR HGB CONC 26.9 g/dL (32.0-36.0); MEAN CORPUSCULAR VOLUME 67.3 fL (81.0-99.0); MEAN PLATELET VOLUME 6.9 fL (7.9-10.8); MONOCYTES % (AUTO) 6.4 %; NEUTROPHILS % (AUTO) 63.9 %; PLT - PLATELET COUNT 434 10^3/uL (130-450); RED BLOOD COUNT 3.05 10^6/uL (4.20-5.40); RED CELL DISTRIBUTION WIDTH 20.8 % (12.0-15.0); WHITE BLOOD COUNT 9.3 x10^3/uL (4.8-10.8)
[2018-01-21 19:45] LABS: HGB - HEMOGLOBIN 5.5 g/dL (12.0-16.0)
[2018-01-21] MEDS ORDERED: SODIUM CHLORIDE 0.9% 1,000 ML IV ONE (19:45)
[2018-01-21 19:47] LABS: ABNORMAL LYMPHS % (MANUAL) 0 %; BAND NEUTROPHILS % (MANUAL) 0 %
[2018-01-21] MEDS ORDERED: PANTOPRAZOLE 40 MG VIAL IVP STA (19:48)
[2018-01-21] MEDS ORDERED: SODIUM CHLORIDE FLUSH 0.9% 10 ML SYRINGE ONE (20:01)
[2018-01-21 20:03] LABS: VBG PCO2 58.5 mmHg (41-51); VBG PH 7.257 (7.31-7.41); VBG PO2 36.1 mmHg (25-47); VBG TOTAL CO2 27.3 mmol/L (24-29)
[2018-01-21 20:04] LABS: VBG BASE EXCESS -1.6 mmol/L (-2 - +2)
[2018-01-21 20:06] LABS: BASOPHILS # (MANUAL) 0.1 10^3/uL (0-0.1); BASOPHILS % (MANUAL) 1 %; EOSINOPHILS # (MANUAL) 0.3 10^3/uL (0-0.7); LYMPHOCYTES # (MANUAL) 0.6 10^3/uL (1.5-3.5); LYMPHOCYTES % (MANUAL) 6 %; MONOCYTES # (MANUAL) 0.7 10^3/uL (0.0-1.0); NEUTROPHILS # (MANUAL) 7.7 10^3/uL (1.5-6.6); NEUTROPHILS % (MANUAL) 83 %
[2018-01-21 20:09] LABS: PLATELET ESTIMATE, MANUAL NORMAL (130-450,000) (NORMAL); PLATELET MORPHOLOGY NORMAL APPEARANCE (NORMAL)
[2018-01-21] MEDS ORDERED: TEMAZEPAM 15 MG CAPSULE PO PRN (22:21)
[2018-01-21] MEDS ORDERED: ONDANSETRON 4 MG/2 ML VIAL IVP PRN (22:21)
[2018-01-21] MEDS ORDERED: LORazepam 0.5 MG TABLET PO PRN (22:30)
[2018-01-21] MEDS ORDERED: IPRATROPIUM/ALBUTEROL 3 ML NEB INH PRN (22:30)
[2018-01-21] MEDS: ALBUTEROL NEB 2.5 MG/3 ML INH PRN (23:33)
--- NOTE | 2018-01-21 23:33 | CONSULTATION NOTE ---
Referring Provider Name of Referring Provider:: Lino Rizzo MD Consult Date: 01/21/18 Chief Complaint - Chief Complaint Chief Complaint: Gastrointestinal bleed History of Present Illness - Admitted From Admitted From:: [facility] ED - History Obtained From Records Reviewed: Yes History obtained from: Patient and chart Exam Limitations: None - History of Present Illness HPI Comment/Other: This pleasant 62 year old female is well known to me as I operated on her July 13 2015 for perforated appendicitis with fecal peritonitis. The pathology at that time showed suppurative appendicitis with rupture. During that hospitalization the patient coded and was noted to have a right tension pneumothorax. I needled her chest and then put in a chest tube which Dr. Harpreet Martinez subsequently changed to a larger size. Prior to and since my involvement in her care she has complained of abdominal pain. She was then seen by Dr. Haney again for abdominal pain. On April 18, 2017 I was asked to perform an EGD and despite an extensive and good view I did not think her GI tract was the source of the blood. When she then presented with an incarcerated left inguinal hernia as well as findings on CT scan suggesting that there were issues with her uterus I took her to the operating room and reduce the incarcerated left inguinal hernia performing a herniorrhaphy as well as performing a liver biopsy. Intraoperative consultation was sought with Dr. Hayes and a hysterectomy and bilateral salpingo-oophorectomy was performed. 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 The patient's case was subsequently discussed at tumor board and the recommendation was that she be seen by GyneOnc at a tertiary care center. The challenges in taking care of this patient that her mentation is a bit "flighty." She tells me that she is tired of being "sick." She did not realize that she was bleeding just that she knew she had no energy. 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 She was but is now . She has 3 children none of whom live on [facility] [address] [facility]. 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 She is a longtime smoker started smoking at the age of 17 says that she quit 2 weeks ago. She previously smoked a pack a day but cut down to half a pack a day for the last year. The patient has tried to quit multiple times over the past year. She does not drink alcohol and has never used any illicit drugs. - POLST Patient has POLST: No POLST Status: Full Code Meds/Allgy - Home Medications Home Medications: Ambulatory Orders Medication Instructions Recorded Confirmed Ipratropium/Albuterol [Combivent 1 puffs INH QID 03/18/17 10/16/17 Respimat] hydroCHLOROthiazide [Hydrodiuril] 12.5 mg PO DAILY 03/18/17 10/16/17 Albuterol 2.5 mg INH Q4H PRN 04/18/17 10/16/17 Ipratropium/Albuterol [Duoneb] 3 ml INH BID PRN 08/09/17 10/16/17 raNITIdine [Zantac] 150 mg PO BID 08/09/17 10/16/17 Lisinopril 40 mg PO DAILY 10/03/17 10/16/17 Aspirin [Aspirin EC] 81 mg PO DAILY 10/04/17 10/16/17 LORazepam [Lorazepam] 0.5 mg PO Q6H PRN 10/04/17 10/16/17 Fluticasone/Salmeterol [Advair 1 puffs INH BID #1 blst.w.dev 10/16/17 250-50 Diskus] HYDROcod/ACETAM 5/325 [[place] 5/325] 1 tab PO Q4HR PRN #42 tablet 10/16/17 Metoprolol Succinate [Toprol Xl] 25 mg PO DAILY #30 tablet 10/16/17 Azithromycin [Zithromax] 250 mg PO DAILY #6 tablet 12/05/17 - Allergies Allergies/Adverse Reactions: Allergies Allergy/AdvReac Type Severity Reaction Status Date / Time No Known Drug Allergies Allergy Verified 01/21/18 18:56 Review of Systems - Constitutional Constitutional: reports: Fatigue, Malaise - Eyes Eyes: denies: Pain - Ears, Nose & Throat Ears, Nose & Throat: denies: Ear pain - Cardiovascular Cariovascular: denies: Irregular heart rate, Chest pain - Respiratory Respiratory: denies: Cough, Wheezing - Gastrointestinal Gastrointestinal: reports: Black stools. denies: Abdominal pain - Musculoskeletal Musculoskeletal: reports: Muscle pain, Back pain - Psychiatric Psychiatric: reports: Depression Exam - Vital Signs Reviewed Vital Signs: Yes Vital Signs: Vital Signs x48h Temp Pulse Pulse Resp BP BP Pulse Ox 01/21/18 23:08 36.6 C 99 21 106/67 99 01/21/18 22:30 103 H 16 99/74 99 - Physical Exam General Appearance: positive: No acute distress (Looks depressed sound depressed. She is usually more upbeat. Evaluated in room 2302 [facility] ICU.) Eyes Bilateral: positive: No lid inflammation, Conjunctivae nml, No scleral icterus ENT: positive: No signs of dehydration Neck: positive: Trachea midline Respiratory: positive: Chest non-tender, No respiratory distress Cardiovascular: positive: Regular rate & rhythm Abdomen: positive: Nml bowel sounds, No distention. negative: Guarding, Rebound , Hepatomegaly, Splenomegaly Skin: positive: Pallor Extremities: positive: Nml appearance Neurologic/Psychiatric: positive: Oriented x3, Depressed mood/affect Conclusion/Plan - Diagnosis Diagnosis: Acute blood loss anemia secondary to likely upper GI bleed - Plan Plan: Esophagogastroduodenoscopy with possible biopsies and/or polypectomies. Indications, procedure, alternatives (such as barium studies and even no procedure at all) and risks including but not limited to perforation requiring operative repair, bleeding with its risks, and were fully explained to her. I have performed this procedure on this patient previously and she stated she did not need me to go into great detail this time. Conscious sedation was discussed at length with her as were its risks including but not limited to loss of airway, aspiration, respiratory depression, and not enough relief of pain and anxiety. I explained that her posterior oropharynx would also be anesthetized for the procedure. I explained that MAC anesthesia is associated with a higher incidence of intestinal perforation. Review of her history does not reveal any significant systemic disease that would contraindicate use of conscious sedation or MAC anesthesia. All questions were fully answered. Verbal and written consent was obtained. The patient in preparation for her esophagogastroduodenoscopy will be n.p.o. 30 minutes of [id number] time spent with the patient the majority of which was spent in discussion, coordination of her care and completion of the requisite paperwork - Lab Results Lab results reviewed: Yes Fish Bones: 01/22/18 10:55 01/22/18 10:55
[2018-01-21] MEDS: D5NS W/20 MEQ KCL 1,000 ML IV SCH (23:35)
[2018-01-21] MEDS: SODIUM CHLORIDE FLUSH 0.9% 10 ML SYRINGE IVP PRN (23:35)
[2018-01-21] MEDS: HYDROmorphone 0.5 MG/0.5 ML SYRINGE IVP PRN (23:37)
[2018-01-22] MEDS ORDERED: ACETAMINOPHEN 325 MG TABLET PO SCH (00:49)
[2018-01-22] MEDS ORDERED: diphenhydrAMINE 25 MG CAPSULE PO SCH (00:50)
[2018-01-22] MEDS: SODIUM CHLORIDE FLUSH 0.9% 10 ML SYRINGE IVP SCH ×3 (01:56→16:28)
[2018-01-22 02:05] LABS: BILIRUBIN,URINE NEGATIVE (NEGATIVE); GLUCOSE, URINE (UA) NEGATIVE (NEGATIVE); KETONES,URINE (UA) NEGATIVE (NEGATIVE); LEUKOCYTE ESTERASE, URINE TRACE (NEGATIVE); NITRITE,URINE NEGATIVE (NEGATIVE); OCCULT BLOOD,URINE NEGATIVE (NEGATIVE); PH,URINE 5.5 PH (5.0-7.5); PROTEIN,URINE NEGATIVE (NEGATIVE); UROBILINOGEN,URINE 0.2 (NORMAL) E.U./dL (NORMAL)
[2018-01-22 02:06] LABS: CLARITY,URINE CLEAR (CLEAR)
[2018-01-22 02:15] LABS: BACTERIA,URINE None Seen /HPF (None Seen); CASTS, URINE 6-10 Hyaline Casts /LPF; RBC,URINE 0-5 /HPF (0-5); SQUAMOUS EPITHELIAL CELL,UR FEW Squamous (<= Few)
--- NOTE | 2018-01-22 02:40 | HISTORY & PHYSICAL EXAMINATION ---
DATE OF SERVICE: 01/21/2018 Physician: Clarissa Bennett MD HISTORY OF PRESENT ILLNESS: This is a 62-year-old white female with strong history of smoking and continues to smoke, history of COPD, history of paroxysmal atrial fibrillation with several admissions for atrial fibrillation with rapid ventricular response, history of chronic abdominal pain, history of a prior gastrointestinal bleed with upper endoscopy showing a source somewhere in the upper GI tract versus nasogastric area, history of incarcerated hernia and this was repaired with simultaneous total abdominal hysterectomy with findings of uterine cancer, history of cor pulmonale with pulmonary hypertension. The patient presents with vague complaints of discomfort in the epigastrium and abdomen, black diarrhea in the emergency room here, which was heme positive, and complaints of shortness of breath over the past several days with any activity. The patient had criteria for being on oxygen at home, but refused to ever use this and does not have any. She presented to the emergency room with the shortness of breath complaints and the abdominal pain and nausea, had the melena in the emergency room, but no hematemesis, and was found to have a hemoglobin of 5.5. She also had an admission blood pressure of 70/40 and heart rate in the 110s, in sinus tachycardia. She was being admitted to the ICU for management of hypotension and severe anemia from gastrointestinal bleeding. PAST MEDICAL HISTORY 1. COPD. 2. Persistent smoking. 3. Cor pulmonale with pulmonary hypertension. 4. Paroxysmal atrial fibrillation (not on anticoagulants because of prior GI bleed). 5. Chronic abdominal pain. 6. Incarcerated hernia requiring emergent surgery four months ago with [facility] at the same time and diagnosis of uterine cancer was made. MEDICATIONS 1. Zantac 150 b.i.d. 2. HCTZ 12.5 daily. 3. Toprol-XL 25 daily. 4. Lisinopril 40 daily. 5. Lorazepam 0.5 q.i.d. p.r.n. 6. DuoNeb inhaler. 7. Combivent inhaler. 8. Advair inhaler. 9. Albuterol inhaler. 10. Baby aspirin daily. 11. Zithromax, unknown if she is on this now. 12. [place] p.r.n. pain. ALLERGIES: NONE. FAMILY HISTORY: Known heart disease. SOCIAL HISTORY: Up to a 8-eyjz-m-day smoker for her entire adult life. No alcohol use. No illicit drug use. She lives alone. 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 PHYSICAL EXAMINATION GENERAL: Thin, white female. She is in no distress, currently wearing oxygen nasal cannula. VITAL SIGNS: Blood pressure 99/74, heart rate 103 in sinus rhythm, afebrile, room air saturation was not documented and now she is on 3 liter nasal cannula with saturation 99%. HEENT: Unremarkable. NECK: Without JVD or carotid bruits. LUNGS: Has scattered inspiratory and expiratory wheezes. Increased AP diameter. No rales or rhonchi. HEART: Heart sounds are normal. ABDOMEN: Soft, nontender. Normal bowel sounds. EXTREMITIES: No clubbing, cyanosis, edema. NEUROLOGIC: Intact. LABORATORIES: Normal electrolytes. Normal BUN and creatinine. Normal liver tests. Troponin not detectable. Lipase normal. INR normal. White blood count 9.3 with a normal differential, hemoglobin 5.5 with an MCV of 67, platelet count normal at 434. Venous blood gas pH 7.257, pCO2 of 58, pO2 of 36. EKG: Sinus tachycardia, LVH voltage, lateral ST depressions horizontally which were seen when she was tachycardic in the past, but that was during atrial fibrillation with RVR. Chest x-ray: No active pulmonary disease, but COPD is present. IMPRESSION/DIAGNOSES 1. Gastrointestinal bleed. 2. Shortness of breath, likely from chronic obstructive pulmonary disease. 3. Hypotension. 4. Marked anemia. 5. Pulmonary hypertension. 6. Paroxysmal atrial fibrillation. 7. History of uterine cancer. PLAN 1. Admit the patient to the ICU on telemetry. 2. Start IV fluids and continue with transfusions, the plan is for three units transfusion, one has been finished in the emergency room. 3. Begin n.p.o. status for an EGD in the morning. The ER doctor reached out to the surgeon who will perform the EGD. 4. Begin H2 blockers IV. 5. Hold her blood pressure medications because of the low blood pressure. 6. Begin gentle hydration, which is improving the blood pressure along with starting transfusions. 7. Continue with her nebulizers and supplemental oxygen. 8. Recheck an Echo for LV and RV contractility and PA pressure. 9. Hold the aspirin at the current time because of the active bleeding and no Lovenox will be given for DVT prophylaxis. 10. Deep venous thrombosis prophylaxis: SCDs. CODE STATUS: DNR. ATTESTATION: The patient is expected to be discharged or transferred to another facility within 96 hours: Yes. TD: 01/22/2018 00:01 [email or web address]
[2018-01-22] MEDS: HYDROmorphone 0.5 MG/0.5 ML SYRINGE IVP PRN ×2 (07:02→20:39)
[2018-01-22] MEDS ORDERED: BUDESONIDE 0.5 MG/2 ML NEB INH SCH (08:00)
[2018-01-22] MEDS: METOPROLOL SUCCINATE 25 MG TABLET PO SCH (08:27)
[2018-01-22] MEDS: PANTOPRAZOLE 40 MG VIAL IVP SCH ×2 (08:27→20:38)
[2018-01-22] MEDS ORDERED: LIDO GARGLE 30 ML BOTTLE ONE (08:53)
[2018-01-22] MEDS ORDERED: IPRATROPIUM/ALBUTEROL RESPIMAT INHALER INH SCH (09:00)
[2018-01-22] MEDS: BUDESONIDE 0.5 MG/2 ML NEB INH SCH ×2 (09:50→20:34)
[2018-01-22] MEDS: FORMOTEROL FUMARATE NEB 20 MCG/2 ML INH SCH ×2 (09:50→20:34)
[2018-01-22] MEDS: IPRATROPIUM/ALBUTEROL 3 ML NEB INH SCH ×4 (09:50→20:36)
[2018-01-22] MEDS ORDERED: LORazepam 2 MG/ML VIAL IVP STA (11:04)
[2018-01-22 11:05] LABS: BASOPHILS % (AUTO) 0.4 %; EOSINOPHILS % (AUTO) 0.7 %; HGB - HEMOGLOBIN 8.7 g/dL (12.0-16.0); LYMPHOCYTES % (AUTO) 26.6 %; MEAN CORPUSCULAR HEMOGLOBIN 22.9 pg (27.0-31.0); MEAN CORPUSCULAR HGB CONC 30.5 g/dL (32.0-36.0); MEAN PLATELET VOLUME 6.2 fL (7.9-10.8); MONOCYTES % (AUTO) 8.6 %; NEUTROPHILS % (AUTO) 63.7 %; PLT - PLATELET COUNT 303 10^3/uL (130-450); RED BLOOD COUNT 3.78 10^6/uL (4.20-5.40); RED CELL DISTRIBUTION WIDTH 23.4 % (12.0-15.0); WHITE BLOOD COUNT 9.1 x10^3/uL (4.8-10.8)
[2018-01-22 11:13] LABS: CALCIUM 8.1 mg/dL (8.5-10.3); CREATININE 0.5 mg/dL (0.4-1.0); MAGNESIUM 1.8 mg/dL (1.7-2.8); PHOSPHORUS 2.4 mg/dL (2.5-4.6)
[2018-01-22 11:21] LABS: ABNORMAL LYMPHS % (MANUAL) 0 %
[2018-01-22 11:36] LABS: BAND NEUTROPHILS % (MANUAL) 1 %; LYMPHOCYTES # (MANUAL) 3.1 10^3/uL (1.5-3.5); LYMPHOCYTES % (MANUAL) 34 %; MONOCYTES # (MANUAL) 0.3 10^3/uL (0.0-1.0); NEUTROPHILS # (MANUAL) 5.7 10^3/uL (1.5-6.6); NEUTROPHILS % (MANUAL) 62 %
[2018-01-22 11:38] LABS: DIFFERENTIAL COMMENT MANUAL DIFFERENTIAL; PLATELET ESTIMATE, MANUAL NORMAL (130-450,000) (NORMAL); PLATELET MORPHOLOGY NORMAL APPEARANCE (NORMAL)
[2018-01-22] MEDS: SODIUM CHLORIDE FLUSH 0.9% 10 ML SYRINGE IVP PRN ×2 (11:39→20:38)
[2018-01-22] MEDS ORDERED: PROPOFOL 200 MG/20 ML VIAL IVP ONE (15:00)
[2018-01-22] MEDS ORDERED: KETAMINE 500 MG/10 ML VIAL IVP ONE (15:00)
[2018-01-22] MEDS: D5NS W/20 MEQ KCL 1,000 ML IV SCH (15:03)
--- NOTE | 2018-01-22 15:45 | ANESTHESIA ---
Pre-Anesthesia VS, & Labs - Diagnosis GI bleeding - Procedure EGD Vital Signs: Temp Pulse Resp BP Pulse Ox 36.7 C 86 18 116/72 100 01/22/18 07:25 01/22/18 15:00 01/22/18 15:00 01/22/18 15:00 01/22/18 15:00 Height 5 ft 8 in Weight (kg) 49 kg Body Mass Index 16.0 - NPO >8 hours - Is Patient ?: No - Lab Results Fish Bones: 01/22/18 10:55 01/22/18 10:55 Home Medications and Allergies Home Medications: Ambulatory Orders Medication Instructions Recorded Confirmed Ipratropium/Albuterol [Combivent 1 puffs INH QID 03/18/17 10/16/17 Respimat] hydroCHLOROthiazide [Hydrodiuril] 12.5 mg PO DAILY 03/18/17 10/16/17 Albuterol 2.5 mg INH Q4H PRN 04/18/17 10/16/17 Ipratropium/Albuterol [Duoneb] 3 ml INH BID PRN 08/09/17 10/16/17 raNITIdine [Zantac] 150 mg PO BID 08/09/17 10/16/17 Lisinopril 40 mg PO DAILY 10/03/17 10/16/17 Aspirin [Aspirin EC] 81 mg PO DAILY 10/04/17 10/16/17 LORazepam [Lorazepam] 0.5 mg PO Q6H PRN 10/04/17 10/16/17 Fluticasone/Salmeterol [Advair 1 puffs INH BID #1 blst.w.dev 10/16/17 250-50 Diskus] HYDROcod/ACETAM 5/325 [[place] 5/325] 1 tab PO Q4HR PRN #42 tablet 10/16/17 Metoprolol Succinate [Toprol Xl] 25 mg PO DAILY #30 tablet 10/16/17 Azithromycin [Zithromax] 250 mg PO DAILY #6 tablet 12/05/17 Allergies/Adverse Reactions: Allergies Allergy/AdvReac Type Severity Reaction Status Date / Time No Known Drug Allergies Allergy Verified 01/21/18 18:56 Anes History & Medical History - Anesthetic History Anesthesia Complications: reports: No previous complications - Airway/Dental Neck Mobility: Reduced Mallampati classification: II Thyromental Distance: 4-6 cm - Medical History Cardiovascular: reports: Atrial fibrillation, Hypertension Pulmonary: reports: Asthma, COPD Gastrointestinal: reports: Other Urinary: reports: None Neuro: reports: None Musculoskeletal: reports: None Endocrine/Autoimmune: reports: None Blood Disorders: reports: None Skin: reports: None Smoking Status: Current every day smoker - Surgical History General: Appendectomy, Other Eyes Ears Nose Throat (EENT): Tonsil/Adenoidectomy Gynecologic: Hysterectomy, Oophrectomy Exam General: Alert Respiratory: Lungs clear Cardiovascular: Regular rate Mental/Cognitive Status: Alert/Oriented X3 Plan Anesthesia Type: MAC Consent for Procedure(s) Verified and Reviewed: Yes Code Status: Attempt Resuscitation ASA classification: 3-Severe systemic disease Is this case an emergency?: Yes
[2018-01-22] MEDS ORDERED: LACTATED RINGERS 1,000 ML IV ONE (16:00)
--- NOTE | 2018-01-22 16:44 | PROVIDER PROGRESS NOTE ---
Assessment/Plan - Problem List (1) Gastrointestinal bleeding Qualifiers: GI bleed type/associated pathology: unspecified gastrointestinal hemorrhage type Qualified Code(s): K92.2 - Gastrointestinal hemorrhage, unspecified Assessment/Plan: Patient appears likely to have an upper GI bleed. On presentation patient's hemoglobin was 5.5 and she was transfused 3 units of packed RBCs overnight. Patient's hemoglobin has come up appropriately to 8.7. The patient will undergo EGD this afternoon and we will continue to monitor hemoglobin. Patient will be continued on IV Protonix twice daily. Surgery is following. We will hold her aspirin. This is likely secondary to ASA and smoking. (2) Anemia Qualifiers: Anemia type: unspecified type Assessment/Plan: Patient presented with symptomatic anemia. She was found to have hemoglobin of 5.5 likely secondary to upper GI bleed. Patient is currently on IV Protonix and will undergo EGD this afternoon. Patient has been transfused 2 units of packed RBCs and does appear to have improvement in her symptoms (4) Hypotension Qualifiers: Hypotension type: hypotension due to hypovolemia Assessment/Plan: On presentation to the emergency department the patient was hypotensive likely secondary to ongoing GI bleeding. The patient was given IV fluid and transfusion with 3 units of packed RBCs and now hypotension has resolved. The patient's antihypertensive medications have been held. We will consider restarting medications once blood pressure is more elevated. (5) COPD (chronic obstructive pulmonary disease) Qualifiers: COPD type: unspecified COPD Qualified Code(s): J44.9 - Chronic obstructive pulmonary disease, unspecified Assessment/Plan: The patient does have history of COPD secondary to tobacco use. The patient continues to smoke. She has chronic hypoxia but she refuses to wear oxygen at home. On presentation the patient is hypoxic. She is currently on supplemental oxygen. She likely also having shortness of breath secondary to her anemia. The patient will be continued on nebulizers and oxygen while she is hospitalized. She does not appear to have COPD exacerbation. (6) Anxiety Assessment/Plan: The patient does have a history of anxiety which is being treated by Ativan. She will continue on Ativan while she is hospitalized. (7) Tobacco abuse Assessment/Plan: Patient has a history of smoking and has COPD. She continues to smoke. We advised the patient to quit smoking especially in the setting of a new GI bleed. The patient was offered a nicotine patch. - Current Meds Current Meds: Current Medications Generic Name Dose Route Start Last Admin Trade Name Freq PRN Reason Stop Dose Admin Albuterol 2.5 mg 01/21/18 22:30 01/21/18 23:33 INH 2.5 mg Q4H PRN Administration Shortness of Air/Wheezing Albuterol/Ipratropium 3 ml 01/22/18 07:00 01/22/18 09:50 Duoneb INH 3 ml RTQID MATTHEW Administration Budesonide 0.5 mg 01/22/18 08:38 01/22/18 09:50 Pulmicort INH 0.5 mg RTBID MATTHEW Administration Formoterol Fumarate 20 mcg 01/22/18 08:00 01/22/18 09:50 Perforomist INH 20 mcg RTBID MATTHEW Administration Hydromorphone HCl 0.5 mg 01/21/18 22:21 01/22/18 07:02 Dilaudid Inj Syringe IVP 0.5 mg Q2H PRN Administration Pain 8 to 10 Potassium Chloride/Dextrose/Sod Cl 1,000 mls @ 80 mls/hr 01/21/18 23:00 01/22 15:03 IV 80 mls/hr .[id number] MATTHEW Administration Lorazepam 0.5 mg 01/21/18 22:30 01/22/18 08:27 Ativan PO 0.5 mg Q6H PRN Administration Anxiety Metoprolol Succinate 25 mg 01/22/18 09:00 01/22/18 08:27 Toprol Xl PO 25 mg DAILY MATTHEW Administration Pantoprazole Sodium 40 mg 01/22/18 09:00 01/22/18 08:27 Protonix IVP 40 mg BID MATTHEW Administration Sodium Chloride 10 ml 01/22/18 01:00 01/22/18 16:28 Normal Saline Flush 0.9% IVP 10 ml 0100,0900,1700 MATTHEW Administration Sodium Chloride 10 ml 01/21/18 22:21 01/22/18 11:39 Normal Saline Flush 0.9% IVP 10 ml PRN PRN Administration NEEDED PER PROVIDER ORDERS - Lab Result Lab results reviewed: Yes Fish Bone Diagrams: 01/22/18 10:55 01/22/18 10:55 - Diagnostic Imaging Results Diagnostic Imaging Results: Final report reviewed - Additional Planning Condition/Complexity: Guarded Consult/Specialty: Surgery Plan Discussed with:: Patient Time Spent: 31-60 minutes Subjective - Subjective Patient Reports: Other (She states she feels miserable and hopeless as she continues to get sick and require hospitalization. She is very anxious and tearful. She does state that her shortness of breath is better this morning.) Nursing Reports: No Complaints Objective Vital Signs: Vital Signs - 24 hr 01/21/18 01/21/18 01/21/18 22:30 23:08 23:33 Temperature 36.6 C Heart Rate 103 H 112 H Heart Rate [ 99 Monitoring electrodes] Respiratory 16 21 18 Rate Blood Pressure 99/74 Blood Pressure 106/67 [Left Brachial artery] O2 Saturation 99 99 01/22/18 01/22/18 01/22/18 00:00 01:00 01:48 Temperature 36.7 C Heart Rate 96 Heart Rate [ 108 H 100 Monitoring electrodes] Respiratory 20 22 13 Rate Blood Pressure 117/78 Blood Pressure 100/73 101/89 H [Left Brachial artery] O2 Saturation 99 98 01/22/18 01/22/18 01/22/18 02:00 02:10 03:00 Temperature 36.4 C L Heart Rate 92 Heart Rate [ 114 H 96 Monitoring electrodes] Respiratory 23 18 17 Rate Blood Pressure 107/81 H Blood Pressure 121/73 110/71 [Left Brachial artery] O2 Saturation 99 01/22/18 01/22/18 01/22/18 04:37 04:40 04:50 Temperature 36.9 C 36.4 C L 36.4 C L Heart Rate 82 101 H Heart Rate [ 90 Monitoring electrodes] Respiratory 18 18 23 Rate Blood Pressure 116/71 116/71 Blood Pressure 116/71 [Left Brachial artery] O2 Saturation 97 01/22/18 01/22/18 01/22/18 05:00 05:06 06:00 Temperature 36.9 C Heart Rate 83 Heart Rate [ 88 83 Monitoring electrodes] Respiratory 20 15 18 Rate Blood Pressure 101/71 Blood Pressure 109/69 111/72 [Left Brachial artery] O2 Saturation 95 99 01/22/18 01/22/18 01/22/18 07:00 07:25 08:00 Temperature 36.7 C Heart Rate 82 Heart Rate [ 80 89 Monitoring electrodes] Respiratory 18 14 19 Rate Blood Pressure 110/75 Blood Pressure 112/81 H 111/74 [Left Brachial artery] O2 Saturation 98 98 01/22/18 01/22/18 01/22/18 09:00 09:50 10:00 Temperature Heart Rate 85 Heart Rate [ 82 Monitoring electrodes] Respiratory 90 H 20 17 Rate Blood Pressure Blood Pressure 99/74 100/72 [Left Brachial artery] O2 Saturation 99 98 01/22/18 01/22/18 01/22/18 11:00 12:00 13:00 Temperature Heart Rate Heart Rate [ 81 86 87 Monitoring electrodes] Respiratory 16 17 21 Rate Blood Pressure Blood Pressure 115/79 106/67 106/76 [Left Brachial artery] O2 Saturation 94 97 99 01/22/18 01/22/18 14:00 15:00 Temperature Heart Rate Heart Rate [ 86 86 Monitoring electrodes] Respiratory 19 18 Rate Blood Pressure Blood Pressure 107/78 116/72 [Left Brachial artery] O2 Saturation 100 100 Oxygen O2 Source Nasal cannula I&O (Last 24 Hrs): Intake and Output Totals x24h 01/20/18 01/21/18 01/22/18 23:59 23:59 23:59 Intake Total 1670.500 Output Total 1575 Balance 95.500 General: Alert, Oriented x3, Cooperative, Other (Anxious and depressed) HEENT: Atraumatic, PERRLA, EOMI, Mucous membr. moist/pink Neck: Supple, No JVD, No thyromegaly, +2 carotid pulse wo bruit, No LAD Lymphatic: no adenopathy Neuro: Alert, Non Focal, CN 2-12 Grossly Intact, Oriented Times 3 Cardiovascular: Regular rate, Normal S1, Normal S2 Respiratory: No respiratory distress, Wheezes (Scattered diffuse) Abdomen: Normal bowel sounds, Soft, No tenderness, No hepatospenomegaly, No masses Rectal: Stool - Heme POS Extremities: No clubbing, No cyanosis, No edema, Normal pulses Skin: No rashes, No breakdown - Results Results: Laboratory Results WBC 9.1 x10^3/uL (4.8-10.8) 01/22/18 10:55 RBC 3.78 10^6/uL (4.20-5.40) L 01/22/18 10:55 Hgb 8.7 g/dL (12.0-16.0) L 01/22/18 10:55 Hct 28.3 % (37.0-47.0) L 01/22/18 10:55 MCV 75.0 fL (81.0-99.0) L 01/22/18 10:55 MCH 22.9 pg (27.0-31.0) L 01/22/18 10:55 MCHC 30.5 g/dL (32.0-36.0) L 01/22/18 10:55 RDW 23.4 % (12.0-15.0) H 01/22/18 10:55 Plt Count 303 10^3/uL (130-450) 01/22/18 10:55 MPV 6.2 fL (7.9-10.8) L 01/22/18 10:55 Neut # (Auto) Not Reportable 01/22/18 10:55 Lymph # (Auto) Not Reportable 01/22/18 10:55 [place] # (Auto) Not Reportable 01/22/18 10:55 Eos # (Auto) Not Reportable 01/22/18 10:55 Baso # (Auto) Not Reportable 01/22/18 10:55 Absolute Nucleated RBC Not Reportable 01/22/18 10:55 Total Counted 100 01/22/18 10:55 Band Neuts % (Manual) 1 % (0-10) 01/22/18 10:55 Abnorm Lymph % (Manual) 0 % 01/22/18 10:55 Nucleated RBC % Not Reportable 01/22/18 10:55 Neutrophils # (Manual) 5.7 10^3/uL (1.5-6.6) 01/22/18 10:55 Lymphocytes # (Manual) 3.1 10^3/uL (1.5-3.5) 01/22/18 10:55 Monocytes # (Manual) 0.3 10^3/uL (0.0-1.0) 01/22/18 10:55 Eosinophils # (Manual) 0.0 10^3/uL (0-0.7) 01/22/18 10:55 Basophils # (Manual) 0.0 10^3/uL (0-0.1) 01/22/18 10:55 Differential Comment MANUAL DIFFERENTIAL 01/22/18 10:55 Manual Slide Review Indicated 01/22/18 10:55 Platelet Estimate NORMAL (130-450,000) (NORMAL) 01/22/18 10:55 Platelet Morphology NORMAL APPEARANCE (NORMAL) 01/22/18 10:55 RBC Morph Micro Appear 2+ ANISOCYTOSIS (NORMAL) 1+ POLYCHROMASIA (NORMAL) 3 + HYPOCHROMASIA (NORMAL) 2+ MICROCYTOSIS (NORMAL) 2+ OVALOCYTES (NORMAL) 1+ BASO STIPPLING (NORMAL) 01/21/18 19:10 RBC Morph Micro Appear 2+ ANISOCYTOSIS (NORMAL) 1+ POLYCHROMASIA (NORMAL) 3 + HYPOCHROMASIA (NORMAL) 2+ MICROCYTOSIS (NORMAL) 2+ OVALOCYTES (NORMAL) 1+ BASO STIPPLING (NORMAL) 01/21/18 19:10 RBC Morph Micro Appear 2+ ANISOCYTOSIS (NORMAL) 1+ POLYCHROMASIA (NORMAL) 3 + HYPOCHROMASIA (NORMAL) 2+ MICROCYTOSIS (NORMAL) 2+ OVALOCYTES (NORMAL) 1+ BASO STIPPLING (NORMAL) 01/21/18 19:10 RBC Morph Micro Appear 2+ ANISOCYTOSIS (NORMAL) 1+ POLYCHROMASIA (NORMAL) 3 + HYPOCHROMASIA (NORMAL) 2+ MICROCYTOSIS (NORMAL) 2+ OVALOCYTES (NORMAL) 1+ BASO STIPPLING (NORMAL) 01/21/18 19:10 RBC Morph Micro Appear 2+ ANISOCYTOSIS (NORMAL) 1+ POLYCHROMASIA (NORMAL) 3 + HYPOCHROMASIA (NORMAL) 2+ MICROCYTOSIS (NORMAL) 2+ OVALOCYTES (NORMAL) 1+ BASO STIPPLING (NORMAL) 01/21/18 19:10 RBC Morph Micro Appear 3+ ANISOCYTOSIS (NORMAL) 1+ POLYCHROMASIA (NORMAL) 2 + HYPOCHROMASIA (NORMAL) 01/22/18 10:55 RBC Morph Micro Appear 3+ ANISOCYTOSIS (NORMAL) 1+ POLYCHROMASIA (NORMAL) 2 + HYPOCHROMASIA (NORMAL) 01/22/18 10:55 RBC Morph Micro Appear 3+ ANISOCYTOSIS (NORMAL) 1+ POLYCHROMASIA (NORMAL) 2 + HYPOCHROMASIA (NORMAL) 01/22/18 10:55 PT 12.6 secs (9.9-12.6) 01/21/18 19:10 INR 1.1 (0.8-1.2) 01/21/18 19:10 VBG pH 7.257 (7.31-7.41) L 01/21/18 19:50 VBG pCO2 58.5 mmHg (41-51) H 01/21/18 19:50 VBG pO2 36.1 mmHg (25-47) 01/21/18 19:50 VBG HCO3 25.5 mmol/L (23-28) 01/21/18 19:50 VBG Total CO2 27.3 mmol/L (24-29) 01/21/18 19:50 VBG O2 Saturation 62.3 % (60-80) 01/21/18 19:50 VBG Base Excess -1.6 mmol/L (-2 - +2) 01/21/18 19:50 Sodium 137 mmol/L (135-145) 01/22/18 10:55 Potassium 4.6 mmol/L (3.5-5.0) 01/22/18 10:55 Chloride 105 mmol/L (101-111) 01/22/18 10:55 Carbon Dioxide 28 mmol/L (21-32) 01/22/18 10:55 Anion Gap 4.0 (6-13) L 01/22/18 10:55 BUN 34 mg/dL (6-20) H 01/22/18 10:55 Creatinine 0.5 mg/dL (0.4-1.0) 01/22/18 10:55 Estimated GFR (MDRD) 124 (>89) 01/22/18 10:55 Glucose 95 mg/dL (70-100) 01/22/18 10:55 Lactic Acid 1.4 mmol/L (0.5-2.2) 01/21/18 22:28 Calcium 8.1 mg/dL (8.5-10.3) L 01/22/18 10:55 Phosphorus 2.4 mg/dL (2.5-4.6) L 01/22/18 10:55 Magnesium 1.8 mg/dL (1.7-2.8) 01/22/18 10:55 Total Bilirubin 0.7 mg/dL (0.2-1.0) 01/21/18 19:10 AST 16 IU/L (10-42) 01/21/18 19:10 ALT < 10 IU/L (10-60) L 01/21/18 19:10 Alkaline Phosphatase 63 IU/L (42-121) 01/21/18 19:10 Troponin I < 0.04 ng/mL (<0.49) 01/21/18 19:10 Total Protein 5.2 g/dL (6.7-8.2) L 01/21/18 19:10 Albumin 3.0 g/dL (3.2-5.5) L 01/22/18 10:55 Globulin 2.1 g/dL (2.1-4.2) 01/21/18 19:10 Albumin/Globulin Ratio 1.5 (1.0-2.2) 01/21/18 19:10 Lipase 29 U/L (22-51) 01/21/18 19:10 Urine Color DARK YELLOW 01/22/18 00:30 Urine Clarity CLEAR (CLEAR) 01/22/18 00:30 Urine pH 5.5 PH (5.0-7.5) 01/22/18 00:30 Ur Specific [place] 1.020 (1.002-1.030) 01/22/18 00:30 Urine Protein NEGATIVE mg/dL (NEGATIVE) 01/22/18 00:30 Urine Glucose (UA) NEGATIVE mg/dL (NEGATIVE) 01/22/18 00:30 Urine Ketones NEGATIVE mg/dL (NEGATIVE) 01/22/18 00:30 Urine Occult Blood NEGATIVE (NEGATIVE) 01/22/18 00:30 Urine Nitrite NEGATIVE (NEGATIVE) 01/22/18 00:30 Urine Bilirubin NEGATIVE (NEGATIVE) 01/22/18 00:30 Urine Urobilinogen 0.2 (NORMAL) E.U./dL (NORMAL) 01/22/18 00:30 Ur Leukocyte Esterase TRACE (NEGATIVE) H 01/22/18 00:30 Urine RBC 0-5 /HPF (0-5) 01/22/18 00:30 Urine WBC 4-5 /HPF (0-5) 01/22/18 00:30 Ur Squamous Epith Cells FEW Squamous (<= Few) 01/22/18 00:30 Urine Bacteria None Seen /HPF (None Seen) 01/22/18 00:30 Urine Casts 6-10 Hyaline Casts /LPF 01/22/18 00:30 Ur Microscopic Review INDICATED 01/22/18 00:30 Urine Culture Comments INDICATED 01/22/18 00:30 Blood Type O POSITIVE 01/21/18 19:50 Antibody Screen NEGATIVE 01/21/18 19:50 Crossmatch IS Only See Detail 01/21/18 19:50 - Procedures Procedures: Procedures ASSIST W CARDIAC OUTPUT W PULS COMPRESSION, CONTINUOUS (07/13/15) ASSISTANCE WITH RESPIRATORY VENTILATION, 24-96 HRS, CPAP (07/13/15) DRAINAGE OF R PLEURAL CAV WITH DRAIN DEV, PERC APPROACH (07/13/15) EXCISION OF LIVER, OPEN APPROACH, DIAGNOSTIC (10/03/17) INSERTION OF ENDOTRACHEAL AIRWAY INTO TRACHEA, VIA OPENING (07/13/15) INSERTION OF INFUSION DEV INTO SUP VENA CAVA, PERC APPROACH (07/13/15) INSPECTION OF UPPER INTESTINAL TRACT, ENDO (04/18/17) INTRODUCTION OF NUTRITIONAL INTO CENTRAL VEIN, PERC APPROACH (07/13/15) MONITORING OF VENOUS PRESSURE, CENTRAL, PERC APPROACH (07/13/15) REPAIR LEFT INGUINAL REGION, OPEN APPROACH (10/03/17) RESECTION OF APPENDIX, OPEN APPROACH (07/13/15) RESECTION OF BILATERAL FALLOPIAN TUBES, OPEN APPROACH (10/03/17) RESECTION OF BILATERAL OVARIES, OPEN APPROACH (10/03/17) RESECTION OF UTERUS, OPEN APPROACH (10/03/17) RESPIRATORY VENTILATION, 24-96 CONSECUTIVE HOURS (07/13/15) ABX Reporting Has patient been on IV antibiotics over the past 48 hours?: No Current Medications - Current Medications Current Medications: Active Medications Generic Name Dose Route Start Last Admin Trade Name Freq PRN Reason Stop Dose Admin Hydrocodone Bitart/Acetaminophen 1 tab 01/21/18 22:30 [place] 5/325 PO Q4HR PRN PAIN Albuterol 2.5 mg 01/21/18 22:30 01/21/18 23:33 INH 2.5 mg Q4H PRN Administration Shortness of Air/Wheezing Albuterol/Ipratropium 3 ml 01/22/18 07:00 01/22/18 16:45 Duoneb INH 3 ml RTQID MATTHEW Administration Budesonide 0.5 mg 01/22/18 08:38 01/22/18 09:50 Pulmicort INH 0.5 mg RTBID MATTHEW Administration Formoterol Fumarate 20 mcg 01/22/18 08:00 01/22/18 09:50 Perforomist INH 20 mcg RTBID MATTHEW Administration Hydromorphone HCl 0.5 mg 01/21/18 22:21 01/22/18 07:02 Dilaudid Inj Syringe IVP 0.5 mg Q2H PRN Administration Pain 8 to 10 Potassium Chloride/Dextrose/Sod Cl 1,000 mls @ 80 mls/hr 01/21/18 23:00 01/22 15:03 IV 80 mls/hr .[id number] MATTHEW Administration Lorazepam 0.5 mg 01/21/18 22:30 01/22/18 08:27 Ativan PO 0.5 mg Q6H PRN Administration Anxiety Metoprolol Succinate 25 mg 01/22/18 09:00 01/22/18 08:27 Toprol Xl PO 25 mg DAILY MATTHEW Administration Ondansetron HCl 4 mg 01/21/18 22:21 Zofran Inj IVP Q6HR PRN Nausea / Vomiting Pantoprazole Sodium 40 mg 01/22/18 09:00 01/22/18 08:27 Protonix IVP 40 mg BID MATTHEW Administration Sodium Chloride 10 ml 01/22/18 01:00 01/22/18 16:28 Normal Saline Flush 0.9% IVP 10 ml 0100,0900,1700 MATTHEW Administration Sodium Chloride 10 ml 01/21/18 22:21 01/22/18 11:39 Normal Saline Flush 0.9% IVP 10 ml PRN PRN Administration NEEDED PER PROVIDER ORDERS Temazepam 15 mg 01/21/18 22:21 Restoril PO QPM PRN Insomnia Ipratropium/Albuterol [Combivent Respimat] 1 puffs INH QID 03/18/17 hydroCHLOROthiazide [Hydrodiuril] 12.5 mg PO DAILY 03/18/17 Albuterol 2.5 mg INH Q4H PRN 04/18/17 Ipratropium/Albuterol [Duoneb] 3 ml INH BID PRN 08/09/17 raNITIdine [Zantac] 150 mg PO BID 08/09/17 Lisinopril 40 mg PO DAILY 10/03/17 Aspirin [Aspirin EC] 81 mg PO DAILY 10/04/17 LORazepam [Lorazepam] 0.5 mg PO Q6H PRN 10/04/17
[2018-01-22] MEDS: HYDROcod/ACETAM 5/325 MG TABLET PO PRN (18:40)
[2018-01-22] MEDS ORDERED: ACETAMINOPHEN 325 MG TABLET PO PRN (20:32)
[2018-01-22] MEDS: QUEtiapine 25 MG TABLET PO SCH ×2 (20:38→21:23)
[2018-01-23] MEDS: SODIUM CHLORIDE FLUSH 0.9% 10 ML SYRINGE IVP SCH ×3 (03:49→17:14)
[2018-01-23] MEDS: D5NS W/20 MEQ KCL 1,000 ML IV SCH (03:49)
[2018-01-23 04:45] LABS: CALCIUM 7.9 mg/dL (8.5-10.3)
[2018-01-23 04:51] LABS: BASOPHILS % (AUTO) 0.5 %; EOSINOPHILS # (AUTO) 0.1 10^3/uL (0.0-0.7); EOSINOPHILS % (AUTO) 1.6 %; HGB - HEMOGLOBIN 7.6 g/dL (12.0-16.0); LYMPHOCYTES # (AUTO) 2.1 10^3/uL (1.5-3.5); LYMPHOCYTES % (AUTO) 24.8 %; MEAN CORPUSCULAR HEMOGLOBIN 22.5 pg (27.0-31.0); MEAN CORPUSCULAR HGB CONC 29.8 g/dL (32.0-36.0); MEAN CORPUSCULAR VOLUME 75.4 fL (81.0-99.0); MEAN PLATELET VOLUME 6.9 fL (7.9-10.8); MONOCYTES # (AUTO) 0.7 10^3/uL (0.0-1.0); MONOCYTES % (AUTO) 8.2 %; NEUTROPHILS # (AUTO) 5.4 10^3/uL (1.5-6.6); NEUTROPHILS % (AUTO) 64.9 %; PLT - PLATELET COUNT 277 10^3/uL (130-450); RED CELL DISTRIBUTION WIDTH 23.9 % (12.0-15.0); WHITE BLOOD COUNT 8.3 x10^3/uL (4.8-10.8)
[2018-01-23 04:57] LABS: ALBUMIN 2.8 g/dL (3.2-5.5); CREATININE 0.5 mg/dL (0.4-1.0); MAGNESIUM 1.6 mg/dL (1.7-2.8); PHOSPHORUS 2.4 mg/dL (2.5-4.6)
[2018-01-23] MEDS: NEUTRA-PHOS 250 MG TABLET PO SCH ×2 (07:02→08:11)
[2018-01-23] MEDS: MAGNESIUM OXIDE 400 MG TABLET PO SCH ×2 (07:03→12:39)
[2018-01-23] MEDS: FORMOTEROL FUMARATE NEB 20 MCG/2 ML INH SCH ×2 (07:33→19:07)
[2018-01-23] MEDS: IPRATROPIUM/ALBUTEROL 3 ML NEB INH SCH ×4 (07:33→19:07)
[2018-01-23] MEDS: BUDESONIDE 0.5 MG/2 ML NEB INH SCH ×2 (07:33→19:07)
[2018-01-23] MEDS: METOPROLOL SUCCINATE 25 MG TABLET PO SCH (08:11)
[2018-01-23] MEDS: PANTOPRAZOLE 40 MG VIAL IVP SCH ×2 (08:12→20:32)
[2018-01-23] MEDS: HYDROcod/ACETAM 5/325 MG TABLET PO PRN ×2 (14:57→19:27)
[2018-01-23 16:46] LABS: BASOPHILS # (AUTO) 0.1 10^3/uL (0.0-0.1); EOSINOPHILS # (AUTO) 0.1 10^3/uL (0.0-0.7); EOSINOPHILS % (AUTO) 1.8 %; HGB - HEMOGLOBIN 7.4 g/dL (12.0-16.0); LYMPHOCYTES % (AUTO) 30.7 %; MEAN CORPUSCULAR HEMOGLOBIN 22.4 pg (27.0-31.0); MEAN CORPUSCULAR HGB CONC 29.5 g/dL (32.0-36.0); MEAN CORPUSCULAR VOLUME 76.1 fL (81.0-99.0); MEAN PLATELET VOLUME 6.8 fL (7.9-10.8); MONOCYTES # (AUTO) 0.6 10^3/uL (0.0-1.0); MONOCYTES % (AUTO) 9.1 %; NEUTROPHILS # (AUTO) 3.8 10^3/uL (1.5-6.6); NEUTROPHILS % (AUTO) 57.4 %; PLT - PLATELET COUNT 288 10^3/uL (130-450); RED BLOOD COUNT 3.32 10^6/uL (4.20-5.40); RED CELL DISTRIBUTION WIDTH 23.9 % (12.0-15.0); WHITE BLOOD COUNT 6.5 x10^3/uL (4.8-10.8)
--- NOTE | 2018-01-23 19:13 | PROVIDER PROGRESS NOTE ---
Assessment/Plan - Problem List (1) Gastrointestinal bleeding Qualifiers: GI bleed type/associated pathology: unspecified gastrointestinal hemorrhage type Qualified Code(s): K92.2 - Gastrointestinal hemorrhage, unspecified Assessment/Plan: On presentation patient's hemoglobin was 5.5 and she was transfused 3 units of packed RBCs overnight. Patient's hemoglobin has come up appropriately to 8.7. The patient underwent EGD which showed a normal-appearing esophagus and GE junction, normal-appearing stomach, normal-appearing duodenum with no blood in her stomach, esophagus or duodenum. There was an appearance of large veins at her posterior tongue that were very suspicious as a possible source of bleeding. Today patients Hb is down slightly to 7.6 she has not had any black or bloody stools We will monitor for one more day If hb remains stable likely discharge tomorrow Continue IV protonix Hold ASA (2) Anemia Qualifiers: Anemia type: unspecified type Assessment/Plan: Patient presented with symptomatic anemia. She was found to have hemoglobin of 5.5 likely secondary to upper GI bleed. Patient is currently on IV Protonix and underwent EGD yesterday with no source of bleeding identified. Patients symptoms have resolved. (4) Hypotension Qualifiers: Hypotension type: hypotension due to hypovolemia Assessment/Plan: Resolved with transfusion and IVFs (5) COPD (chronic obstructive pulmonary disease) Qualifiers: COPD type: unspecified COPD Qualified Code(s): J44.9 - Chronic obstructive pulmonary disease, unspecified Assessment/Plan: The patient does have history of COPD secondary to tobacco use. The patient continues to smoke. She has chronic hypoxia but she refuses to wear oxygen at home. On presentation the patient is hypoxic. She is currently on supplemental oxygen. She likely also having shortness of breath secondary to her anemia. The patient will be continued on nebulizers and oxygen while she is hospitalized. She does not appear to have COPD exacerbation. (6) Anxiety Assessment/Plan: The patient does have a history of anxiety which is being treated by Ativan. She will continue on Ativan while she is hospitalized. (7) Tobacco abuse Assessment/Plan: Patient has a history of smoking and has COPD. She continues to smoke. We advised the patient to quit smoking especially in the setting of a new GI bleed. The patient was offered a nicotine patch. - Current Meds Current Meds: Current Medications Generic Name Dose Route Start Last Admin Trade Name Freq PRN Reason Stop Dose Admin Hydrocodone Bitart/Acetaminophen 1 tab 01/21/18 22:30 01/23/18 14:57 Energy 5/325 PO 1 tab Q4HR PRN Administration PAIN Albuterol 2.5 mg 01/21/18 22:30 01/21/18 23:33 INH 2.5 mg Q4H PRN Administration Shortness of Air/Wheezing Albuterol/Ipratropium 3 ml 01/22/18 07:00 01/23/18 19:07 Duoneb INH 3 ml RTQID MATTHEW Administration Budesonide 0.5 mg 01/22/18 08:38 01/23/18 19:07 Pulmicort INH 0.5 mg RTBID MATTHEW Administration Formoterol Fumarate 20 mcg 01/22/18 08:00 01/23/18 19:07 Perforomist INH 20 mcg RTBID MATTHEW Administration Hydromorphone HCl 0.5 mg 01/21/18 22:21 01/22/18 20:39 Dilaudid Inj Syringe IVP 0.5 mg Q2H PRN Administration Pain 8 to 10 Lorazepam 0.5 mg 01/21/18 22:30 01/22/18 08:27 Ativan PO 0.5 mg Q6H PRN Administration Anxiety Metoprolol Succinate 25 mg 01/22/18 09:00 01/23/18 08:11 Toprol Xl PO 25 mg DAILY MATTHEW Administration Pantoprazole Sodium 40 mg 01/22/18 09:00 01/23/18 08:12 Protonix IVP 40 mg BID MATTHEW Administration Quetiapine Fumarate 25 mg 01/22/18 20:00 01/22/18 21:23 Seroquel PO Not Given QPM MATTHEW Sodium Chloride 10 ml 01/22/18 01:00 01/23/18 17:14 Normal Saline Flush 0.9% IVP Not Given 0100,0900,1700 MATTHEW Sodium Chloride 10 ml 01/21/18 22:21 01/22/18 20:38 Normal Saline Flush 0.9% IVP 10 ml PRN PRN Administration NEEDED PER PROVIDER ORDERS - Lab Result Lab results reviewed: Yes Fish Bone Diagrams: 01/24/18 05:35 01/24/18 05:35 - Diagnostic Imaging Results Diagnostic Imaging Results: Final report reviewed - Additional Planning Condition/Complexity: Guarded My Orders: My Active Orders 01/23/18 16:19 Vital Signs [RC] Q8HR Consult/Specialty: Surgery Plan Discussed with:: Patient Time Spent: 31-60 minutes Subjective - Subjective Patient Reports: Feeling Better, Resting Comfortably, Other (She denies any black or bloody stools. States she has more energy.) Objective Vital Signs: Vital Signs - 24 hr 01/22/18 01/22/18 01/22/18 20:34 20:55 21:00 Temperature 37.1 C Heart Rate 92 Heart Rate [ 83 89 Monitoring electrodes] Respiratory 18 14 16 Rate Blood Pressure 95/62 102/64 [Left Brachial artery] O2 Saturation 94 97 01/22/18 01/22/18 01/23/18 22:00 23:00 00:00 Temperature Heart Rate Heart Rate [ 84 82 82 Monitoring electrodes] Respiratory 15 15 16 Rate Blood Pressure 97/63 93/67 93/67 [Left Brachial artery] O2 Saturation 97 98 98 01/23/18 01/23/18 01/23/18 01:00 02:00 03:00 Temperature Heart Rate Heart Rate [ 83 90 86 Monitoring electrodes] Respiratory 17 19 21 Rate Blood Pressure 92/60 93/67 88/62 L [Left Brachial artery] O2 Saturation 99 99 97 01/23/18 01/23/18 01/23/18 04:00 05:00 06:00 Temperature 36.7 C Heart Rate Heart Rate [ 85 90 86 Monitoring electrodes] Respiratory 20 20 19 Rate Blood Pressure 96/65 110/70 100/66 [Left Brachial artery] O2 Saturation 98 100 98 01/23/18 01/23/18 01/23/18 07:06 07:40 08:00 Temperature 36.8 C Heart Rate 94 Heart Rate [ 93 88 Monitoring electrodes] Respiratory 22 24 22 Rate Blood Pressure 98/69 108/77 [Left Brachial artery] O2 Saturation 97 99 01/23/18 01/23/18 01/23/18 09:00 10:00 11:00 Temperature Heart Rate Heart Rate [ 86 85 82 Monitoring electrodes] Respiratory 22 17 22 Rate Blood Pressure 102/68 92/69 95/69 [Left Brachial artery] O2 Saturation 100 96 95 01/23/18 01/23/18 01/23/18 11:45 12:00 13:00 Temperature 36.7 C Heart Rate 83 Heart Rate [ 89 85 Monitoring electrodes] Respiratory 13 22 86 H Rate Blood Pressure 103/70 97/67 [Left Brachial artery] O2 Saturation 94 95 01/23/18 01/23/18 01/23/18 14:00 15:00 15:07 Temperature Heart Rate 80 Heart Rate [ 84 82 Monitoring electrodes] Respiratory 19 16 16 Rate Blood Pressure 99/67 99/71 [Left Brachial artery] O2 Saturation 92 96 Oxygen O2 Source Nasal cannula I&O (Last 24 Hrs): Intake and Output Totals x24h 01/21/18 01/22/18 01/23/18 23:59 23:59 23:59 Intake Total 2326.389 2997 Output Total 2825 1750 Balance -6919.098 7501 General: Alert, Oriented x3, Cooperative, No acute distress, Other (Thin) HEENT: Atraumatic, PERRLA, EOMI, Mucous membr. moist/pink Neck: Supple, No JVD, No thyromegaly, +2 carotid pulse wo bruit, No LAD Lymphatic: no adenopathy Neuro: Alert, Non Focal, CN 2-12 Grossly Intact, Oriented Times 3 Cardiovascular: Regular rate, Normal S1, Normal S2, No murmurs Respiratory: Chest non-tender, Other (Decreased breath sounds bilaterally) Abdomen: Normal bowel sounds, Soft, No tenderness, No hepatospenomegaly, No masses Extremities: No clubbing, No cyanosis, No edema, Normal pulses Skin: No rashes, No breakdown - Results Results: Laboratory Results WBC 6.5 x10^3/uL (4.8-10.8) 01/23/18 16: RBC 3.32 10^6/uL (4.20-5.40) L 01/23/18 16:27 Hgb 7.4 g/dL (12.0-16.0) L 01/23/18 16:27 Hct 25.2 % (37.0-47.0) L 01/23/18 16:27 MCV 76.1 fL (81.0-99.0) L 01/23/18 16:27 MCH 22.4 pg (27.0-31.0) L 01/23/18 16:27 MCHC 29.5 g/dL (32.0-36.0) L 01/23/18 16: RDW 23.9 % (12.0-15.0) H 01/23/18 16:27 Plt Count 288 10^3/uL (130-450) 01/23/18 16:27 MPV 6.8 fL (7.9-10.8) L 01/23/18 16:27 Neut # (Auto) 3.8 10^3/uL (1.5-6.6) 01/23/18 16:27 Lymph # (Auto) 2.0 10^3/uL (1.5-3.5) 01/23/18 16:27 George # (Auto) 0.6 10^3/uL (0.0-1.0) 01/23/18 16:27 Eos # (Auto) 0.1 10^3/uL (0.0-0.7) 01/23/18 16:27 Baso # (Auto) 0.1 10^3/uL (0.0-0.1) 01/23/18 16:27 Absolute Nucleated RBC 0.01 x10^3/uL 01/23/18 16:27 Total Counted 100 01/22/18 10:55 Band Neuts % (Manual) 1 % (0-10) 01/22/18 10:55 Abnorm Lymph % (Manual) 0 % 01/22/18 10:55 Nucleated RBC % 0.1 /100WBC 01/23/18 16:27 Neutrophils # (Manual) 5.7 10^3/uL (1.5-6.6) 01/22/18 10:55 Lymphocytes # (Manual) 3.1 10^3/uL (1.5-3.5) 01/22/18 10:55 Monocytes # (Manual) 0.3 10^3/uL (0.0-1.0) 01/22/18 10:55 Eosinophils # (Manual) 0.0 10^3/uL (0-0.7) 01/22/18 10:55 Basophils # (Manual) 0.0 10^3/uL (0-0.1) 01/22/18 10:55 Differential Comment MANUAL DIFFERENTIAL 01/22/18 10:55 Manual Slide Review Indicated 01/22/18 10:55 Platelet Estimate NORMAL (130-450,000) (NORMAL) 01/22/18 10:55 Platelet Morphology NORMAL APPEARANCE (NORMAL) 01/22/18 10:55 RBC Morph Micro Appear 2+ ANISOCYTOSIS (NORMAL) 1+ POLYCHROMASIA (NORMAL) 3 + HYPOCHROMASIA (NORMAL) 2+ MICROCYTOSIS (NORMAL) 2+ OVALOCYTES (NORMAL) 1+ BASO STIPPLING (NORMAL) 01/21/18 19:10 RBC Morph Micro Appear 2+ ANISOCYTOSIS (NORMAL) 1+ POLYCHROMASIA (NORMAL) 3 + HYPOCHROMASIA (NORMAL) 2+ MICROCYTOSIS (NORMAL) 2+ OVALOCYTES (NORMAL) 1+ BASO STIPPLING (NORMAL) 01/21/18 19:10 RBC Morph Micro Appear 2+ ANISOCYTOSIS (NORMAL) 1+ POLYCHROMASIA (NORMAL) 3 + HYPOCHROMASIA (NORMAL) 2+ MICROCYTOSIS (NORMAL) 2+ OVALOCYTES (NORMAL) 1+ BASO STIPPLING (NORMAL) 01/21/18 19:10 RBC Morph Micro Appear 2+ ANISOCYTOSIS (NORMAL) 1+ POLYCHROMASIA (NORMAL) 3 + HYPOCHROMASIA (NORMAL) 2+ MICROCYTOSIS (NORMAL) 2+ OVALOCYTES (NORMAL) 1+ BASO STIPPLING (NORMAL) 01/21/18 19:10 RBC Morph Micro Appear 2+ ANISOCYTOSIS (NORMAL) 1+ POLYCHROMASIA (NORMAL) 3 + HYPOCHROMASIA (NORMAL) 2+ MICROCYTOSIS (NORMAL) 2+ OVALOCYTES (NORMAL) 1+ BASO STIPPLING (NORMAL) 01/21/18 19:10 RBC Morph Micro Appear 3+ ANISOCYTOSIS (NORMAL) 1+ POLYCHROMASIA (NORMAL) 2 + HYPOCHROMASIA (NORMAL) 01/22/18 10:55 RBC Morph Micro Appear 3+ ANISOCYTOSIS (NORMAL) 1+ POLYCHROMASIA (NORMAL) 2 + HYPOCHROMASIA (NORMAL) 01/22/18 10:55 RBC Morph Micro Appear 3+ ANISOCYTOSIS (NORMAL) 1+ POLYCHROMASIA (NORMAL) 2 + HYPOCHROMASIA (NORMAL) 01/22/18 10:55 PT 12.6 secs (9.9-12.6) 01/21/18 19:10 INR 1.1 (0.8-1.2) 01/21/18 19:10 VBG pH 7.257 (7.31-7.41) L 01/21/18 19:50 VBG pCO2 58.5 mmHg (41-51) H 01/21/18 19:50 VBG pO2 36.1 mmHg (25-47) 01/21/18 19:50 VBG HCO3 25.5 mmol/L (23-28) 01/21/18 19:50 VBG Total CO2 27.3 mmol/L (24-29) 01/21/18 19:50 VBG O2 Saturation 62.3 % (60-80) 01/21/18 19:50 VBG Base Excess -1.6 mmol/L (-2 - +2) 01/21/18 19:50 Sodium 137 mmol/L (135-145) 01/23/18 04:25 Potassium 4.2 mmol/L (3.5-5.0) 01/23/18 04:25 Chloride 106 mmol/L (101-111) 01/23/18 04:25 Carbon Dioxide 28 mmol/L (21-32) 01/23/18 04:25 Anion Gap 3.0 (6-13) L 01/23/18 04:25 BUN 15 mg/dL (6-20) 01/23/18 04:25 Creatinine 0.5 mg/dL (0.4-1.0) 01/23/18 04:25 Estimated GFR (MDRD) 124 (>89) 01/23/18 04:25 Glucose 100 mg/dL (70-100) 01/23/18 04:25 Lactic Acid 1.4 mmol/L (0.5-2.2) 01/21/18 22:28 Calcium 7.9 mg/dL (8.5-10.3) L 01/23/18 04:25 Phosphorus 2.4 mg/dL (2.5-4.6) L 01/23/18 04:25 Magnesium 1.6 mg/dL (1.7-2.8) L 01/23/18 04:25 Total Bilirubin 0.7 mg/dL (0.2-1.0) 01/21/18 19:10 AST 16 IU/L (10-42) 01/21/18 19:10 ALT < 10 IU/L (10-60) L 01/21/18 19:10 Alkaline Phosphatase 63 IU/L (42-121) 01/21/18 19:10 Troponin I < 0.04 ng/mL (<0.49) 01/21/18 19:10 Total Protein 5.2 g/dL (6.7-8.2) L 01/21/18 19:10 Albumin 2.8 g/dL (3.2-5.5) L 01/23/18 04:25 Globulin 2.1 g/dL (2.1-4.2) 01/21/18 19:10 Albumin/Globulin Ratio 1.5 (1.0-2.2) 01/21/18 19:10 Lipase 29 U/L (22-51) 01/21/18 19:10 Urine Color DARK YELLOW 01/22/18 00:30 Urine Clarity CLEAR (CLEAR) 01/22/18 00:30 Urine pH 5.5 PH (5.0-7.5) 01/22/18 00:30 Ur Specific [place] 1.020 (1.002-1.030) 01/22/18 00:30 Urine Protein NEGATIVE mg/dL (NEGATIVE) 01/22/18 00:30 Urine Glucose (UA) NEGATIVE mg/dL (NEGATIVE) 01/22/18 00:30 Urine Ketones NEGATIVE mg/dL (NEGATIVE) 01/22/18 00:30 Urine Occult Blood NEGATIVE (NEGATIVE) 01/22/18 00:30 Urine Nitrite NEGATIVE (NEGATIVE) 01/22/18 00:30 Urine Bilirubin NEGATIVE (NEGATIVE) 01/22/18 00:30 Urine Urobilinogen 0.2 (NORMAL) E.U./dL (NORMAL) 01/22/18 00:30 Ur Leukocyte Esterase TRACE (NEGATIVE) H 01/22/18 00:30 Urine RBC 0-5 /HPF (0-5) 01/22/18 00:30 Urine WBC 4-5 /HPF (0-5) 01/22/18 00:30 Ur Squamous Epith Cells FEW Squamous (<= Few) 01/22/18 00:30 Urine Bacteria None Seen /HPF (None Seen) 01/22/18 00:30 Urine Casts 6-10 Hyaline Casts /LPF 01/22/18 00:30 Ur Microscopic Review INDICATED 01/22/18 00:30 Urine Culture Comments INDICATED 01/22/18 00:30 Blood Type O POSITIVE 01/21/18 19:50 Antibody Screen NEGATIVE 01/21/18 19:50 Crossmatch IS Only See Detail 01/21/18 19:50 - Procedures Procedures: Procedures ASSIST W CARDIAC OUTPUT W PULS COMPRESSION, CONTINUOUS (07/13/15) ASSISTANCE WITH RESPIRATORY VENTILATION, 24-96 HRS, CPAP (07/13/15) DRAINAGE OF R PLEURAL CAV WITH DRAIN DEV, PERC APPROACH (07/13/15) EXCISION OF LIVER, OPEN APPROACH, DIAGNOSTIC (10/03/17) INSERTION OF ENDOTRACHEAL AIRWAY INTO TRACHEA, VIA OPENING (07/13/15) INSERTION OF INFUSION DEV INTO SUP VENA CAVA, PERC APPROACH (07/13/15) INSPECTION OF UPPER INTESTINAL TRACT, ENDO (04/18/17) INTRODUCTION OF NUTRITIONAL INTO CENTRAL VEIN, PERC APPROACH (07/13/15) MONITORING OF VENOUS PRESSURE, CENTRAL, PERC APPROACH (07/13/15) REPAIR LEFT INGUINAL REGION, OPEN APPROACH (10/03/17) RESECTION OF APPENDIX, OPEN APPROACH (07/13/15) RESECTION OF BILATERAL FALLOPIAN TUBES, OPEN APPROACH (10/03/17) RESECTION OF BILATERAL OVARIES, OPEN APPROACH (10/03/17) RESECTION OF UTERUS, OPEN APPROACH (10/03/17) RESPIRATORY VENTILATION, 24-96 CONSECUTIVE HOURS (07/13/15) ABX Reporting Has patient been on IV antibiotics over the past 48 hours?: No Current Medications - Current Medications Current Medications: Active Medications Generic Name Dose Route Start Last Admin Trade Name Freq PRN Reason Stop Dose Admin Acetaminophen 650 mg 01/22/18 20:32 Tylenol PO Q4HR PRN Pain or Fever > 38C (100.4F) Hydrocodone Bitart/Acetaminophen 1 tab 01/21/18 22:30 01/24/18 04:02 Energy 5/325 PO 1 tab Q4HR PRN Administration PAIN Albuterol 2.5 mg 01/21/18 22:30 01/24/18 00:05 INH 2.5 mg Q4H PRN Administration Shortness of Air/Wheezing Albuterol/Ipratropium 3 ml 01/22/18 07:00 01/24/18 07:19 Duoneb INH 3 ml RTQID MATTHEW Administration Budesonide 0.5 mg 01/22/18 08:38 01/24/18 07:19 Pulmicort INH 0.5 mg RTBID MATTHEW Administration Formoterol Fumarate 20 mcg 01/22/18 08:00 01/24/18 07:19 Perforomist INH 20 mcg RTBID MATTHEW Administration Hydromorphone HCl 0.5 mg 01/21/18 22:21 01/22/18 20:39 Dilaudid Inj Syringe IVP 0.5 mg Q2H PRN Administration Pain 8 to 10 Lorazepam 0.5 mg 01/21/18 22:30 01/22/18 08:27 Ativan PO 0.5 mg Q6H PRN Administration Anxiety Metoprolol Succinate 25 mg 01/22/18 09:00 01/23/18 08:11 Toprol Xl PO 25 mg DAILY MATTHEW Administration Ondansetron HCl 4 mg 01/21/18 22:21 Zofran Inj IVP Q6HR PRN Nausea / Vomiting Pantoprazole Sodium 40 mg 01/22/18 09:00 01/23/18 20:32 Protonix IVP 40 mg BID MATTHEW Administration Quetiapine Fumarate 25 mg 01/22/18 20:00 01/23/18 20:32 Seroquel PO 25 mg QPM MATTHEW Administration Sodium Chloride 10 ml 01/22/18 01:00 01/24/18 00:27 Normal Saline Flush 0.9% IVP 10 ml 0100,0900,1700 MATTHEW Administration Sodium Chloride 10 ml 01/21/18 22:21 01/23/18 20:32 Normal Saline Flush 0.9% IVP 10 ml PRN PRN Administration NEEDED PER PROVIDER ORDERS Temazepam 15 mg 01/21/18 22:21 Restoril PO QPM PRN Insomnia Ipratropium/Albuterol [Combivent Respimat] 1 puffs INH QID 03/18/17 hydroCHLOROthiazide [Hydrodiuril] 12.5 mg PO DAILY 03/18/17 Albuterol 2.5 mg INH Q4H PRN 04/18/17 Ipratropium/Albuterol [Duoneb] 3 ml INH BID PRN 08/09/17 raNITIdine [Zantac] 150 mg PO BID 08/09/17 Lisinopril 40 mg PO DAILY 10/03/17 Aspirin [Aspirin EC] 81 mg PO DAILY 10/04/17 LORazepam [Lorazepam] 0.5 mg PO Q6H PRN 10/04/17 Beclomethasone Dipropionate [Qvar Redihaler] 1 puffs INH BID 01/23/18 Carvedilol [Carvedilol] 12.5 mg PO BID 01/23/18 Metoprolol Succinate [Toprol Xl] 25 mg PO DAILY 01/23/18 Salmeterol Xinafoate [Serevent Diskus] 1 puffs INH DAILY 01/23/18
[2018-01-23] MEDS: QUEtiapine 25 MG TABLET PO SCH (20:32)
[2018-01-23] MEDS: SODIUM CHLORIDE FLUSH 0.9% 10 ML SYRINGE IVP PRN (20:32)
[2018-01-24] MEDS: ALBUTEROL NEB 2.5 MG/3 ML INH PRN (00:05)
[2018-01-24] MEDS: HYDROcod/ACETAM 5/325 MG TABLET PO PRN ×3 (00:25→11:17)
[2018-01-24] MEDS: SODIUM CHLORIDE FLUSH 0.9% 10 ML SYRINGE IVP SCH ×2 (00:27→08:28)
[2018-01-24 06:00] LABS: BASOPHILS % (AUTO) 0.8 %; EOSINOPHILS # (AUTO) 0.2 10^3/uL (0.0-0.7); EOSINOPHILS % (AUTO) 2.9 %; HGB - HEMOGLOBIN 7.4 g/dL (12.0-16.0); LYMPHOCYTES % (AUTO) 38.9 %; MEAN CORPUSCULAR HEMOGLOBIN 22.3 pg (27.0-31.0); MEAN CORPUSCULAR HGB CONC 29.5 g/dL (32.0-36.0); MEAN CORPUSCULAR VOLUME 75.7 fL (81.0-99.0); MEAN PLATELET VOLUME 6.9 fL (7.9-10.8); MONOCYTES # (AUTO) 0.5 10^3/uL (0.0-1.0); MONOCYTES % (AUTO) 10.3 %; NEUTROPHILS # (AUTO) 2.4 10^3/uL (1.5-6.6); NEUTROPHILS % (AUTO) 47.1 %; PLT - PLATELET COUNT 278 10^3/uL (130-450); RED BLOOD COUNT 3.33 10^6/uL (4.20-5.40); RED CELL DISTRIBUTION WIDTH 24.3 % (12.0-15.0); WHITE BLOOD COUNT 5.2 x10^3/uL (4.8-10.8)
[2018-01-24 06:05] LABS: ALBUMIN 2.8 g/dL (3.2-5.5); CALCIUM 8.3 mg/dL (8.5-10.3); CREATININE 0.5 mg/dL (0.4-1.0); MAGNESIUM 1.6 mg/dL (1.7-2.8); PHOSPHORUS 3.1 mg/dL (2.5-4.6)
[2018-01-24] MEDS: FORMOTEROL FUMARATE NEB 20 MCG/2 ML INH SCH (07:19)
[2018-01-24] MEDS: IPRATROPIUM/ALBUTEROL 3 ML NEB INH SCH ×2 (07:19→11:20)
[2018-01-24] MEDS: BUDESONIDE 0.5 MG/2 ML NEB INH SCH (07:19)
[2018-01-24 08:09] VITALS: BP 122/70
[2018-01-24] MEDS: PANTOPRAZOLE 40 MG VIAL IVP SCH (08:28)
[2018-01-24] MEDS: METOPROLOL SUCCINATE 25 MG TABLET PO SCH (08:28)
--- NOTE | 2018-01-24 10:42 | Discharge Plan ---
Discharge Plan Disposition: 01 Home, Self Care Condition: Fair Prescriptions: Pantoprazole [Protonix] 40 mg PO DAILY #60 tablet Diet: Regular Activity Restrictions: Activity as Tolerated Shower Restrictions: No Driving Restrictions: No Weight Bearing: Full Weight Additional Instructions or Follow Up instructions: You presented to the emergency department with black stools and were found to have a hemoglobin of 5.5. This was very concerning for a GI bleed. You underwent an EGD which did not reveal any active bleeding. You were not found to have any source of bleeding in the stomach or the duodenum but there were some enlarged veins on the posterior aspect of your tongue. The general surgeon is concerned that this is the source of your bleeding. He has recommended that you follow-up with an ENT specialist for which she will need a referral from your primary care physician. Your bleeding has now stopped and her hemoglobin has remained stable therefore you are stable for discharge. You will need to take an antacid called Protonix daily for the next few months to decrease your risk of bleeding in the future. We also recommend that you avoid tobacco, alcohol, limit your coffee intake and avoid any NSAIDs. No Smoking: If you smoke, Please STOP! Call for help. Follow-up with: Yung Gay MD [Provider Admit Priv/Credential] -
--- NOTE | 2018-01-24 10:47 | DISCHARGE SUMMARY ---
"Discharge Summary Admit Date: 01/21/18 Discharge Date: 01/24/18 Discharging Provider: Shalom Holland MD Primary Care Provider: Yung Gay MD Code Status: Attempt Resuscitation Condition at Discharge: Fair Discharge Disposition: 01 Home, Self Care - DIAGNOSES Admission Diagnoses: 1. Gastrointestinal bleed 2. Shortness of breath likely secondary to chronic obstructive pulmonary disease 3. Hypotension 4. Marked anemia 5. Pulmonary hypertension 6. Paroxysmal atrial fibrillation 7. History of uterine cancer Discharge Diagnoses with Status of Each Condition: 1. Gastrointestinal bleeding: Stable 2. Anemia: Stable 3. Hypotension: Resolved 4. COPD: Stable 5. Anxiety: Stable 6. Tobacco abuse: Stable - HPI History of Present Illness: Patient is a 62-year-old female with a past medical history significant for COPD , tobacco abuse, cor pulmonale with pulmonary hypertension, paroxysmal atrial fibrillation not on any anticoagulation, chronic abdominal pain, incarcerated hernia requiring emergent surgery 4 months ago with total abdominal hysterectomy and bilateral salpingo-oophorectomy with diagnosis of uterine cancer who presented to the emergency department with a chief complaint of vague abdominal discomfort and black stools. In the emergency department the patient was found to have heme positive stools and complained of shortness of breath with activity over the last several days. On presentation to the emergency department the patient was found to have hemoglobin of 5.5 and was hypotensive with a blood pressure of 70/40 and heart rate of 110. The patient was admitted to the intensive care unit for management of her hypotension, severe anemia and gastrointestinal bleeding. - CONSULTS | PROCEDURES Consultations: General Surgery: Gordon Borja Procedures: EGD Findings: 1. Normal appearing esophagus and GE junction 2. The stomach was well visualized and normal in appearance 3. Normal-appearing duodenum 4. Absolutely no blood in her stomach, esophagus or duodenum. Again there are very large veins at her posterior tongue that are very suspicious as possible source of bleeding. 5. Retroflexed views revealed no abnormalities. Recommendations: 1. Resume diet 2. Continue surveillance 3. Strongly recommend ENT evaluation for better visualization of her posterior tongue. Also take a look at the nasopharynx. - HOSPITAL COURSE Hospital Course: The patient was hospitalized in the intensive care unit and given IV fluids as well as 3 units of packed RBCs. The patient's blood pressure improved and her hemoglobin improved to 8.7. The patient was taken for EGD by general surgery and found to have a normal-appearing esophagus and GE junction. The patient's stomach was well visualized and normal in parents. She had a normal-appearing duodenum. There was absolutely no blood in her stomach esophagus or duodenum. There was a finding of large veins in the posterior tongue which were suspicious for possible source of bleeding. The surgeon recommended that the patient be evaluated by ENT for a outpatient consultation to better visualize the posterior tongue. The patient was monitored for another day and her hemoglobin remained stable at 7.4. She did not get any further transfusion. The patient had no further bowel movements and was not having any evidence of further bleeding. The patient was discharged home on oral Protonix for 2 months. She was continued on her home medication. The patient will need a referral from her primary care physician to see ENT and if ENT testing is negative the patient will need a consultation for gastroenterology for workup of obscure bleeding. The patient may need a capsule endoscopy in the future. If the patient does return to the emergency department with continued GI bleeding it would be recommended that she be transferred to a larger [facility] with specialists in ENT and gastroenterology so that she can have a further evaluation. - ALLERGIES Allergies/Adverse Reactions: Allergies Allergy/AdvReac Type Severity Reaction Status Date / Time No Known Drug Allergies Allergy Verified 01/21/18 18:56 - MEDICATIONS Home Medications: Ambulatory Orders Medication Instructions Recorded Confirmed Ipratropium/Albuterol [Combivent 1 puffs INH QID 03/18/17 01/23/18 Respimat] hydroCHLOROthiazide [Hydrodiuril] 12.5 mg PO DAILY 03/18/17 01/23/18 Albuterol 2.5 mg INH Q4H PRN 04/18/17 01/23/18 Ipratropium/Albuterol [Duoneb] 3 ml INH BID PRN 08/09/17 01/23/18 raNITIdine [Zantac] 150 mg PO BID 08/09/17 01/23/18 Lisinopril 40 mg PO DAILY 10/03/17 01/23/18 Aspirin [Aspirin EC] 81 mg PO DAILY 10/04/17 01/23/18 LORazepam [Lorazepam] 0.5 mg PO Q6H PRN 10/04/17 01/23/18 Beclomethasone Dipropionate [Qvar 1 puffs INH BID 01/23/18 01/23/18 Redihaler] Carvedilol 12.5 mg PO BID 01/23/18 01/23/18 Metoprolol Succinate [Toprol Xl] 25 mg PO DAILY 01/23/18 01/23/18 Salmeterol Xinafoate [Serevent 1 puffs INH DAILY 01/23/18 01/23/18 Diskus] Pantoprazole [Protonix] 40 mg PO DAILY #60 tablet 01/24/18 - PHYSICAL EXAM AT DISCHARGE General Appearance: positive: No acute distress, Alert, Other (Thin and frail) Eyes Bilateral: positive: Normal inspection, PERRL, EOMI, No lid inflammation, Conjunctivae nml, No scleral icterus ENT: positive: ENT inspection nml, Pharynx nml, No signs of dehydration. negative: Purulent nasal drainage, Pharyngeal erythema, Oral lesions Neck: positive: Nml inspection, Thyroid nml, No JVD, Trachea midline. negative : Lymphadenopathy (R), Lymphadenopathy (L), Carotid bruit, Swelling/bruising, Tracheal deviation Respiratory: positive: Chest non-tender, No respiratory distress, Other ( Decreased breath sounds bilaterally) Cardiovascular: positive: Regular rate & rhythm, No murmur, No gallop Peripheral Pulses: positive: 2+ Abdomen: positive: Non-tender, No organomegaly, Nml bowel sounds, No distention. negative: Guarding, Rebound, Hepatomegaly Back: positive: Nml inspection. negative: CVA tenderness (R), CVA tenderness (L ) Skin: positive: Color nml, No rash, Warm. negative: Cyanosis, Diaphoresis, Pallor Extremities: positive: Non-tender, Full ROM, Nml appearance, No pedal edema Neurologic/Psychiatric: positive: Oriented x3, CN's nml (2-12), Motor nml, Sensation nml, Mood/affect nml - LABS Result Diagrams: 01/24/18 05:35 01/24/18 05:35 Other Lab Results: Laboratory Results WBC 5.2 x10^3/uL (4.8-10.8) 01/24/18 05:35 RBC 3.33 10^6/uL (4.20-5.40) L 01/24/18 05:35 Hgb 7.4 g/dL (12.0-16.0) L 01/24/18 05:35 Hct 25.2 % (37.0-47.0) L 01/24/18 05:35 MCV 75.7 fL (81.0-99.0) L 01/24/18 05:35 MCH 22.3 pg (27.0-31.0) L 01/24/18 05:35 MCHC 29.5 g/dL (32.0-36.0) L 01/24/18 05:35 RDW 24.3 % (12.0-15.0) H 01/24/18 05:35 Plt Count 278 10^3/uL (130-450) 01/24/18 05:35 MPV 6.9 fL (7.9-10.8) L 01/24/18 05:35 Neut # (Auto) 2.4 10^3/uL (1.5-6.6) 01/24/18 05:35 Lymph # (Auto) 2.0 10^3/uL (1.5-3.5) 01/24/18 05:35 Gonzales # (Auto) 0.5 10^3/uL (0.0-1.0) 01/24/18 05:35 Eos # (Auto) 0.2 10^3/uL (0.0-0.7) 01/24/18 05:35 Baso # (Auto) 0.0 10^3/uL (0.0-0.1) 01/24/18 05:35 Absolute Nucleated RBC 0.01 x10^3/uL 01/24/18 05:35 Total Counted 100 01/22/18 10:55 Band Neuts % (Manual) 1 % (0-10) 01/22/18 10:55 Abnorm Lymph % (Manual) 0 % 01/22/18 10:55 Nucleated RBC % 0.3 /100WBC 01/24/18 05:35 Neutrophils # (Manual) 5.7 10^3/uL (1.5-6.6) 01/22/18 10:55 Lymphocytes # (Manual) 3.1 10^3/uL (1.5-3.5) 01/22/18 10:55 Monocytes # (Manual) 0.3 10^3/uL (0.0-1.0) 01/22/18 10:55 Eosinophils # (Manual) 0.0 10^3/uL (0-0.7) 01/22/18 10:55 Basophils # (Manual) 0.0 10^3/uL (0-0.1) 01/22/18 10:55 Differential Comment MANUAL DIFFERENTIAL 01/22/18 10:55 Manual Slide Review Indicated 01/22/18 10:55 Platelet Estimate NORMAL (130-450,000) (NORMAL) 01/22/18 10:55 Platelet Morphology NORMAL APPEARANCE (NORMAL) 01/22/18 10:55 RBC Morph Micro Appear 2+ ANISOCYTOSIS (NORMAL) 1+ POLYCHROMASIA (NORMAL) 3 + HYPOCHROMASIA (NORMAL) 2+ MICROCYTOSIS (NORMAL) 2+ OVALOCYTES (NORMAL) 1+ BASO STIPPLING (NORMAL) 01/21/18 19:10 RBC Morph Micro Appear 2+ ANISOCYTOSIS (NORMAL) 1+ POLYCHROMASIA (NORMAL) 3 + HYPOCHROMASIA (NORMAL) 2+ MICROCYTOSIS (NORMAL) 2+ OVALOCYTES (NORMAL) 1+ BASO STIPPLING (NORMAL) 01/21/18 19:10 RBC Morph Micro Appear 2+ ANISOCYTOSIS (NORMAL) 1+ POLYCHROMASIA (NORMAL) 3 + HYPOCHROMASIA (NORMAL) 2+ MICROCYTOSIS (NORMAL) 2+ OVALOCYTES (NORMAL) 1+ BASO STIPPLING (NORMAL) 01/21/18 19:10 RBC Morph Micro Appear 2+ ANISOCYTOSIS (NORMAL) 1+ POLYCHROMASIA (NORMAL) 3 + HYPOCHROMASIA (NORMAL) 2+ MICROCYTOSIS (NORMAL) 2+ OVALOCYTES (NORMAL) 1+ BASO STIPPLING (NORMAL) 01/21/18 19:10 RBC Morph Micro Appear 2+ ANISOCYTOSIS (NORMAL) 1+ POLYCHROMASIA (NORMAL) 3 + HYPOCHROMASIA (NORMAL) 2+ MICROCYTOSIS (NORMAL) 2+ OVALOCYTES (NORMAL) 1+ BASO STIPPLING (NORMAL) 01/21/18 19:10 RBC Morph Micro Appear 3+ ANISOCYTOSIS (NORMAL) 1+ POLYCHROMASIA (NORMAL) 2 + HYPOCHROMASIA (NORMAL) 01/22/18 10:55 RBC Morph Micro Appear 3+ ANISOCYTOSIS (NORMAL) 1+ POLYCHROMASIA (NORMAL) 2 + HYPOCHROMASIA (NORMAL) 01/22/18 10:55 RBC Morph Micro Appear 3+ ANISOCYTOSIS (NORMAL) 1+ POLYCHROMASIA (NORMAL) 2 + HYPOCHROMASIA (NORMAL) 01/22/18 10:55 PT 12.6 secs (9.9-12.6) 01/21/18 19:10 INR 1.1 (0.8-1.2) 01/21/18 19:10 VBG pH 7.257 (7.31-7.41) L 01/21/18 19:50 VBG pCO2 58.5 mmHg (41-51) H 01/21/18 19:50 VBG pO2 36.1 mmHg (25-47) 01/21/18 19:50 VBG HCO3 25.5 mmol/L (23-28) 01/21/18 19:50 VBG Total CO2 27.3 mmol/L (24-29) 01/21/18 19:50 VBG O2 Saturation 62.3 % (60-80) 01/21/18 19:50 VBG Base Excess -1.6 mmol/L (-2 - +2) 01/21/18 19:50 Sodium 138 mmol/L (135-145) 01/24/18 05:35 Potassium 4.1 mmol/L (3.5-5.0) 01/24/18 05:35 Chloride 103 mmol/L (101-111) 01/24/18 05:35 Carbon Dioxide 31 mmol/L (21-32) 01/24/18 05:35 Anion Gap 4.0 (6-13) L 01/24/18 05:35 BUN 10 mg/dL (6-20) 01/24/18 05:35 Creatinine 0.5 mg/dL (0.4-1.0) 01/24/18 05:35 Estimated GFR (MDRD) 124 (>89) 01/24/18 05:35 Glucose 101 mg/dL (70-100) H 01/24/18 05:35 Lactic Acid 1.4 mmol/L (0.5-2.2) 01/21/18 22:28 Calcium 8.3 mg/dL (8.5-10.3) L 01/24/18 05:35 Phosphorus 3.1 mg/dL (2.5-4.6) 01/24/18 05:35 Magnesium 1.6 mg/dL (1.7-2.8) L 01/24/18 05:35 Total Bilirubin 0.7 mg/dL (0.2-1.0) 01/21/18 19:10 AST 16 IU/L (10-42) 01/21/18 19:10 ALT < 10 IU/L (10-60) L 01/21/18 19:10 Alkaline Phosphatase 63 IU/L (42-121) 01/21/18 19:10 Troponin I < 0.04 ng/mL (<0.49) 01/21/18 19:10 Total Protein 5.2 g/dL (6.7-8.2) L 01/21/18 19:10 Albumin 2.8 g/dL (3.2-5.5) L 01/24/18 05:35 Globulin 2.1 g/dL (2.1-4.2) 01/21/18 19:10 Albumin/Globulin Ratio 1.5 (1.0-2.2) 01/21/18 19:10 Lipase 29 U/L (22-51) 01/21/18 19:10 Urine Color DARK YELLOW 01/22/18 00:30 Urine Clarity CLEAR (CLEAR) 01/22/18 00:30 Urine pH 5.5 PH (5.0-7.5) 01/22/18 00:30 Ur Specific Richey 1.020 (1.002-1.030) 01/22/18 00:30 Urine Protein NEGATIVE mg/dL (NEGATIVE) 01/22/18 00:30 Urine Glucose (UA) NEGATIVE mg/dL (NEGATIVE) 01/22/18 00:30 Urine Ketones NEGATIVE mg/dL (NEGATIVE) 01/22/18 00:30 Urine Occult Blood NEGATIVE (NEGATIVE) 01/22/18 00:30 Urine Nitrite NEGATIVE (NEGATIVE) 01/22/18 00:30 Urine Bilirubin NEGATIVE (NEGATIVE) 01/22/18 00:30 Urine Urobilinogen 0.2 (NORMAL) E.U./dL (NORMAL) 01/22/18 00:30 Ur Leukocyte Esterase TRACE (NEGATIVE) H 01/22/18 00:30 Urine RBC 0-5 /HPF (0-5) 01/22/18 00:30 Urine WBC 4-5 /HPF (0-5) 01/22/18 00:30 Ur Squamous Epith Cells FEW Squamous (<= Few) 01/22/18 00:30 Urine Bacteria None Seen /HPF (None Seen) 01/22/18 00:30 Urine Casts 6-10 Hyaline Casts /LPF 01/22/18 00:30 Ur Microscopic Review INDICATED 01/22/18 00:30 Urine Culture Comments INDICATED 01/22/18 00:30 Blood Type O POSITIVE 01/21/18 19:50 Antibody Screen NEGATIVE 01/21/18 19:50 Crossmatch IS Only See Detail 01/21/18 19:50 - DIAGNOSTIC IMAGING Diagnostic Imaging Results: Final report reviewed Diagnostic Imaging Results Comments: Chest x-ray Impression: 1. No acute pulmonary process. 2. Probable COPD. It is possible scarring or atelectasis at the left lateral lung base. - FOLLOW UP Follow Up: Patient will need to follow-up with her primary care physician and needs referral for ENT and possibly for gastroenterology as we could not find any active bleeding on EGD and there is suspicion for possible bleeding from enlarged veins at the posterior tongue which need to be evaluated by ENT. The patient is being discharged home on Protonix orally for 2 months. - TIME SPENT Time Spent in Discharge (Minutes): 45"
== END 2018-01-24 11:41 | disposition home or self-care (01) | DRG 378 ==
LOC: EDUNIT# → ED 18:44 → ICU 22:21 → MS2 01-23 20:03
PROVIDERS: ADMIT Internal Medicine; ATTEND Internal Medicine
PROC: 30233N1 Transfusion of Nonautologous Red Blood Cells into Peripheral Vein, Percutaneous Approach (ICD-10-PCS; 2018-01-21)
PROC: 0DJ08ZZ Inspection of Upper Intestinal Tract, Via Natural or Artificial Opening Endoscopic (ICD-10-PCS; principal; 2018-01-22 15:30)
DX: K57.91 Diverticulosis of intestine, part unspecified, without perforation or abscess with bleeding (principal); D62 Acute posthemorrhagic anemia; I48.0 Paroxysmal atrial fibrillation; J44.9 Chronic obstructive pulmonary disease, unspecified; I10 Essential (primary) hypertension; Z72.0 Tobacco use; I27.20 Pulmonary hypertension, unspecified; F41.9 Anxiety disorder, unspecified
CPT/HCPCS: 36415; 71045; 80048; 80053; 81001; 81003; 82040; 82803; 83605; 83690; 83735; 84100; 84484; 85025; 85610; 86850; 86900; 86901; 86920; 87040; 87086; 87150; 93005; 93306; 94640; 96374; 99284; 99291

== ENCOUNTER 2018-02-13 13:57 | Outpatient (CLI) | payer OTHER | END 2018-02-13 13:58 | disposition critical access hospital (66) | LOC: EMS 13:57 | PROVIDERS: ATTEND Surgery | DX: R10.9 Unspecified abdominal pain (principal); R11.0 Nausea | CPT/HCPCS: A0425; A0427 ==

== ENCOUNTER 2018-02-13 14:20 | Emergency (ER) | payer OTHER ==
[2018-02-13] MEDS ORDERED: IPRATROPIUM/ALBUTEROL 3 ML NEB INH STA (14:57)
[2018-02-13] MEDS ORDERED: SODIUM CHLORIDE 0.9% 500 ML IV ONE (14:57)
--- NOTE | 2018-02-13 14:59 | ED Physician Documentation ---
PD HPI DYSPNEA - Stated complaint Stated Complaint: general illness - Chief complaint Chief Complaint: General - History obtained from History obtained from: Patient - History of Present Illness Timing - onset: Yesterday Timing - onset during: Light activity (she says she feels generally weak, lightheaded, and some dyspnea. Feeling of chills and malaise. No vomiting nor diarrhea. no URI symptoms per se.) Timing - duration: Days (2) Timing - details: Gradual onset, Still present Inciting event(s): No: Out of meds, URI Improved by: Rest Worsened by: Exertion (even just standing and going to bathroom has her feeling lightheaded and general weakness.) Associated symptoms: No: Fever, Cough Similar symptoms before: Diagnosis (GI bleed about a month ago with needing transfusion, had similar symptoms.) Recently seen: Emergency Dept, Admitted (January 21 was admitted for anemia and guiac positive stools. Also COPD flare. Had EGD done without source for bleeding. Abnormality on posterior tongue area noted. She was transfused and improved symptoms. Did not have colonoscopy. No iron studies or such. discharged for PCP to give referral for ENT and GI.) Review of Systems Constitutional: reports: Fatigue. denies: Fever, Chills, Myalgias Nose: denies: Rhinorrhea / runny nose, Congestion Throat: denies: Sore throat Cardiac: denies: Chest pain / pressure, Palpitations, Pedal edema, Calf pain Respiratory: reports: Dyspnea, Cough, Wheezing GI: reports: Diarrhea (noted some loose stools the past few days; denies blood nor melena.). denies: Abdominal Pain, Nausea, Vomiting, Bloody / black stool : reports: Dysuria, Frequency Skin: reports: Rash, Lesions Musculoskeletal: denies: Neck pain, Back pain Neurologic: reports: Generalized weakness, Near syncope. 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[employer] THIRD STEP: Hysterectomy, Oophrectomy HEENT: Tonsil/Adenoidectomy - Present Medications Home Medications: Ambulatory Orders Medication Instructions Recorded Confirmed Ipratropium/Albuterol [Combivent 1 puffs INH QID 03/18/17 01/23/18 Respimat] Albuterol 2.5 mg INH Q4H PRN 04/18/17 01/23/18 Ipratropium/Albuterol [Duoneb] 3 ml INH BID PRN 08/09/17 01/23/18 Lisinopril 40 mg PO DAILY 10/03/17 01/23/18 Aspirin [Aspirin EC] 81 mg PO DAILY 10/04/17 01/23/18 LORazepam [Lorazepam] 0.5 mg PO Q6H PRN 10/04/17 01/23/18 Beclomethasone Dipropionate [Qvar 1 puffs INH BID 01/23/18 01/23/18 Redihaler] Metoprolol Succinate [Toprol Xl] 25 mg PO DAILY 01/23/18 01/23/18 Salmeterol Xinafoate [Serevent 1 puffs INH DAILY 01/23/18 01/23/18 Diskus] Pantoprazole [Protonix] 40 mg PO DAILY #60 tablet 01/24/18 - Allergies Allergies/Adverse Reactions: Allergies Allergy/AdvReac Type Severity Reaction Status Date / Time No Known Drug Allergies Allergy Verified 02/13/18 14:31 - Social History Does the pt smoke?: Yes Smoking Status: Current every day smoker Does the pt drink ETOH?: No Does the pt have substance abuse?: No - Family History Family history: reports: Non contributory - Immunizations Immunizations are current?: Yes - POLST Patient has POLST: No POLST Status: Full Code PD ED PE NORMAL - Vitals Vital signs reviewed: Yes - General General: Alert and oriented X 3, No acute distress, Well developed/nourished - HEENT HEENT: Pharynx benign - Neck Neck: Supple, no meningeal sign, No adenopathy - Cardiac Cardiac: RRR, No murmur - Respiratory Respiratory: No: Clear bilaterally (some expirtory wheezing diffusely.) - Abdomen Abdomen: Normal bowel sounds, Soft, Non tender, Non distended - Female Female : Deferred - Rectal Rectal: Other (soft stool in vault which is brick colored and guiac very positive. ) - Back Back: No CVA TTP - Derm Derm: Normal color, Warm and dry, No rash - Extremities Extremities: No tenderness to palpate, Normal ROM s pain, No edema, No calf tenderness / cord Results - Vitals Vitals: Vital Signs - 24 hr 02/13/18 02/13/18 02/13/18 14:26 15:30 15:40 Temperature 36.6 C Heart Rate 110 H 110 H 108 H Respiratory 18 22 24 Rate Blood Pressure 114/76 66/52 L 70/50 L Blood Pressure [Supine] O2 Saturation 100 94 92 02/13/18 02/13/18 02/13/18 16:00 16:12 16:23 Temperature Heart Rate 103 H 105 H 104 H Respiratory 24 18 22 Rate Blood Pressure 76/52 L 76/56 L Blood Pressure [Supine] O2 Saturation 02/13/18 02/13/18 02/13/18 16:25 16:30 16:37 Temperature Heart Rate 100 102 H 110 H Respiratory 22 24 21 Rate Blood Pressure 72/59 L 62/47 L 77/65 L Blood Pressure 67/47 L [Supine] O2 Saturation 02/13/18 02/13/18 02/13/18 16:55 17:00 17:15 Temperature 37 C 36.5 C Heart Rate 102 H 97 96 Respiratory 22 22 18 Rate Blood Pressure 66/52 L 66/52 L 93/64 Blood Pressure [Supine] O2 Saturation 91 L 02/13/18 02/13/18 02/13/18 17:22 17:32 17:50 Temperature 37 C 37 C 37.3 C Heart Rate 98 98 100 Respiratory 18 20 20 Rate Blood Pressure 89/64 L 93/62 87/63 L Blood Pressure [Supine] O2 Saturation 100 02/13/18 02/13/18 02/13/18 17:51 18:05 18:18 Temperature 37.4 C 37.3 C Heart Rate 100 96 95 Respiratory 20 20 22 Rate Blood Pressure 87/63 L 97/67 91/63 Blood Pressure [Supine] O2 Saturation 94 02/13/18 02/13/18 02/13/18 18:23 18:37 19:05 Temperature 37.3 C 37.4 C Heart Rate 94 98 92 Respiratory 22 18 22 Rate Blood Pressure 91/63 92/72 104/71 Blood Pressure [Supine] O2 Saturation 100 97 02/13/18 19:30 Temperature Heart Rate 92 Respiratory 18 Rate Blood Pressure 103/73 Blood Pressure [Supine] O2 Saturation 98 Oxygen O2 Source Nasal cannula - Labs Labs: Laboratory Tests 02/13/18 02/13/18 02/13/18 15:17 15:17 15:17 WBC 10.9 H RBC 2.37 L Hgb 5.1 L* Hct 17.8 L* MCV 75.1 L MCH 21.4 L MCHC 28.5 L RDW 24.0 H Plt Count 569 H MPV 7.1 L Reticulocyte % (Auto) Neut # (Auto) Not Reportable Lymph # (Auto) Not Reportable Castro # (Auto) Not Reportable Eos # (Auto) Not Reportable Baso # (Auto) Not Reportable Absolute Nucleated RBC Not Reportable Total Counted 100 Band Neuts % (Manual) 0 Abnorm Lymph % (Manual) 0 Nucleated RBC % Not Reportable Neutrophils # (Manual) 9.4 H Lymphocytes # (Manual) 0.9 L Monocytes # (Manual) 0.4 Eosinophils # (Manual) 0.1 Basophils # (Manual) 0.1 Differential Comment MANUAL DIFFERENTIAL Manual Slide Review Indicated WBC Morphology NORMAL APPEARANCE Platelet Estimate INCREASED (>450,000) Platelet Morphology RARE GIANT PLATELETS RBC Morph Micro Appear 2+ POLYCHROMASIA Absolute Retic Sodium 135 Potassium 4.3 Chloride 103 Carbon Dioxide 23 Anion Gap 9.0 BUN 21 H Creatinine 0.7 Estimated GFR (MDRD) 84 L Glucose 97 Calcium 8.3 L Magnesium 1.7 Iron TIBC % Saturation Transferrin Ferritin Total Bilirubin 0.6 AST 16 ALT < 10 L Alkaline Phosphatase 58 Lactate Dehydrogenase Troponin I < 0.04 B-Natriuretic Peptide Total Protein 5.4 L Albumin 3.0 L Globulin 2.4 Albumin/Globulin Ratio 1.3 Lipase 27 Vitamin B12 Blood Type Antibody Screen Crossmatch IS Only 02/13/18 02/13/18 02/13/18 15:17 15:17 15:17 WBC RBC Hgb Hct MCV MCH MCHC RDW Plt Count MPV Reticulocyte % (Auto) Neut # (Auto) Lymph # (Auto) Castro # (Auto) Eos # (Auto) Baso # (Auto) Absolute Nucleated RBC Total Counted Band Neuts % (Manual) Abnorm Lymph % (Manual) Nucleated RBC % Neutrophils # (Manual) Lymphocytes # (Manual) Monocytes # (Manual) Eosinophils # (Manual) Basophils # (Manual) Differential Comment Manual Slide Review WBC Morphology Platelet Estimate Platelet Morphology RBC Morph Micro Appear Absolute Retic Sodium Potassium Chloride Carbon Dioxide Anion Gap BUN Creatinine Estimated GFR (MDRD) Glucose Calcium Magnesium Iron 21 L TIBC 449 % Saturation 5 L Transferrin 321 Ferritin 3.1 L Total Bilirubin AST ALT Alkaline Phosphatase Lactate Dehydrogenase Troponin I B-Natriuretic Peptide 42 Total Protein Albumin Globulin Albumin/Globulin Ratio Lipase Vitamin B12 194 Blood Type Antibody Screen Crossmatch IS Only 02/13/18 02/13/18 02/13/18 15:17 15:50 15:50 WBC RBC 2.14 L Hgb Hct MCV MCH MCHC RDW Plt Count MPV Reticulocyte % (Auto) 2.69 H Neut # (Auto) Lymph # (Auto) Castro # (Auto) Eos # (Auto) Baso # (Auto) Absolute Nucleated RBC Total Counted Band Neuts % (Manual) Abnorm Lymph % (Manual) Nucleated RBC % Neutrophils # (Manual) Lymphocytes # (Manual) Monocytes # (Manual) Eosinophils # (Manual) Basophils # (Manual) Differential Comment Manual Slide Review WBC Morphology Platelet Estimate Platelet Morphology RBC Morph Micro Appear Absolute Retic 0.057 Sodium Potassium Chloride Carbon Dioxide Anion Gap BUN Creatinine Estimated GFR (MDRD) Glucose Calcium Magnesium Iron TIBC % Saturation Transferrin Ferritin Total Bilirubin AST ALT Alkaline Phosphatase Lactate Dehydrogenase 87 L Troponin I B-Natriuretic Peptide Total Protein Albumin Globulin Albumin/Globulin Ratio Lipase Vitamin B12 Blood Type O POSITIVE Antibody Screen NEGATIVE Crossmatch IS Only See Detail PD MEDICAL DECISION MAKING - ED course Complexity details: considered differential (She presented with an adequate blood pressure initially but that decreased to 80s systolic soon after presentation. She was initially tachycardic. She had an IV started and was given IV fluids. She did have wheezing consistent with her COPD. She was given a DuoNeb with improvement in her breathing and wheezing. However she remained feeling weak and lightheaded. Her blood count came back showing significant anemia and I ordered units of blood for her. Reviewed the prior admission from earlier in the month with anemia, guaiac positive stool and dyspnea. Was very similar presentation. She had had an EGD but no colonoscopy on that admission. I talked with the hospitalist here who felt the patient needed to be transferred for GI specialty. Her blood pressure improved with fluids and blood. She appears stable subsequently. She is a [facility] patient and I talked with the gas transfer operator who accepted and arranged transfer for her to [facility]. The patient was transferred without any complications. She was given dose of Protonix IV here as well as some antiemetic. However it is most likely she has a lower GI bleeding given a normal EGD 3 weeks ago.), d/w patient - Sepsis Event Vital Signs: Vital Signs - 24 hr 02/13/18 02/13/18 02/13/18 14:26 15:30 15:40 Temperature 36.6 C Heart Rate 110 H 110 H 108 H Respiratory 18 22 24 Rate Blood Pressure 114/76 66/52 L 70/50 L Blood Pressure [Supine] O2 Saturation 100 94 92 02/13/18 02/13/18 02/13/18 16:00 16:12 16:23 Temperature Heart Rate 103 H 105 H 104 H Respiratory 24 18 22 Rate Blood Pressure 76/52 L 76/56 L Blood Pressure [Supine] O2 Saturation 02/13/18 02/13/18 02/13/18 16:25 16:30 16:37 Temperature Heart Rate 100 102 H 110 H Respiratory 22 24 21 Rate Blood Pressure 72/59 L 62/47 L 77/65 L Blood Pressure 67/47 L [Supine] O2 Saturation 02/13/18 02/13/18 02/13/18 16:55 17:00 17:15 Temperature 37 C 36.5 C Heart Rate 102 H 97 96 Respiratory 22 22 18 Rate Blood Pressure 66/52 L 66/52 L 93/64 Blood Pressure [Supine] O2 Saturation 91 L 02/13/18 02/13/18 02/13/18 17:22 17:32 17:50 Temperature 37 C 37 C 37.3 C Heart Rate 98 98 100 Respiratory 18 20 20 Rate Blood Pressure 89/64 L 93/62 87/63 L Blood Pressure [Supine] O2 Saturation 100 02/13/18 02/13/18 02/13/18 17:51 18:05 18:18 Temperature 37.4 C 37.3 C Heart Rate 100 96 95 Respiratory 20 20 22 Rate Blood Pressure 87/63 L 97/67 91/63 Blood Pressure [Supine] O2 Saturation 94 02/13/18 02/13/18 02/13/18 18:23 18:37 19:05 Temperature 37.3 C 37.4 C Heart Rate 94 98 92 Respiratory 22 18 22 Rate Blood Pressure 91/63 92/72 104/71 Blood Pressure [Supine] O2 Saturation 100 97 02/13/18 19:30 Temperature Heart Rate 92 Respiratory 18 Rate Blood Pressure 103/73 Blood Pressure [Supine] O2 Saturation 98 Oxygen O2 Source Nasal cannula Departure - Departure Disposition: 02 Transfer Acute Care Hosp Clinical Impression: Transient hypotension, Generalized weakness COPD (chronic obstructive pulmonary disease) Qualifiers: COPD type: unspecified COPD Qualified Code(s): J44.9 - Chronic obstructive pulmonary disease, unspecified GI bleeding Qualifiers: GI bleed type/associated pathology: unspecified gastrointestinal hemorrhage type Qualified Code(s): K92.2 - Gastrointestinal hemorrhage, unspecified Condition: Stable Record reviewed to determine appropriate education?: Yes Discharge Date/Time: 02/13/18 21:05
[2018-02-13 15:29] LABS: BASOPHILS % (AUTO) 0.7 %; EOSINOPHILS % (AUTO) 0.2 %; LYMPHOCYTES % (AUTO) 12.3 %; MEAN CORPUSCULAR HEMOGLOBIN 21.4 pg (27.0-31.0); MEAN CORPUSCULAR HGB CONC 28.5 g/dL (32.0-36.0); MEAN CORPUSCULAR VOLUME 75.1 fL (81.0-99.0); MEAN PLATELET VOLUME 7.1 fL (7.9-10.8); MONOCYTES % (AUTO) 6.2 %; NEUTROPHILS % (AUTO) 80.6 %; PLT - PLATELET COUNT 569 10^3/uL (130-450); RED BLOOD COUNT 2.37 10^6/uL (4.20-5.40); WHITE BLOOD COUNT 10.9 x10^3/uL (4.8-10.8)
[2018-02-13 15:39] LABS: ALBUMIN/GLOBULIN RATIO 1.3 (1.0-2.2); ALKALINE PHOSPHATASE 58 IU/L (42-121); ALT ALANINE AMINOTRANSFERASE < 10 IU/L (10-60); AST ASPARTATE AMINOTRANSFERASE 16 IU/L (10-42); BILIRUBIN,TOTAL 0.6 mg/dL (0.2-1.0); BUN - BLOOD UREA NITROGEN 21 mg/dL (6-20); CALCIUM 8.3 mg/dL (8.5-10.3); CARBON DIOXIDE - CO2 23 mmol/L (21-32); CHLORIDE 103 mmol/L (101-111); CREATININE 0.7 mg/dL (0.4-1.0); GFR - MDRD 84 (>89); GLUCOSE 97 mg/dL (70-100); LIPASE 27 U/L (22-51); MAGNESIUM 1.7 mg/dL (1.7-2.8); SODIUM 135 mmol/L (135-145); TOTAL PROTEIN 5.4 g/dL (6.7-8.2)
[2018-02-13 15:46] LABS: HGB - HEMOGLOBIN 5.1 g/dL (12.0-16.0)
[2018-02-13 15:47] LABS: ABNORMAL LYMPHS % (MANUAL) 0 %; BAND NEUTROPHILS % (MANUAL) 0 %
[2018-02-13 15:52] LABS: BASOPHILS # (MANUAL) 0.1 10^3/uL (0-0.1); BASOPHILS % (MANUAL) 1 %; EOSINOPHILS # (MANUAL) 0.1 10^3/uL (0-0.7); LYMPHOCYTES # (MANUAL) 0.9 10^3/uL (1.5-3.5); LYMPHOCYTES % (MANUAL) 8 %; MONOCYTES # (MANUAL) 0.4 10^3/uL (0.0-1.0); NEUTROPHILS # (MANUAL) 9.4 10^3/uL (1.5-6.6); NEUTROPHILS % (MANUAL) 86 %
[2018-02-13 15:53] LABS: DIFFERENTIAL COMMENT MANUAL DIFFERENTIAL; PLATELET ESTIMATE, MANUAL INCREASED (>450,000) (NORMAL); PLATELET MORPHOLOGY RARE GIANT PLATELETS (NORMAL)
[2018-02-13 16:00] LABS: MEAN RETIC VALUE 106.9; RED BLOOD COUNT 2.14 10^6/uL (4.20-5.40)
--- NOTE | 2018-02-13 16:04 | XRAY Report ---
Reason: dyspnea and malaise since yesterday Procedure Date: 02/13/2018 Accession Number: [id number] / [id number] Procedure: XR - Chest 2 View X-Ray CPT Code: 52209 FULL RESULT: EXAM: CHEST RADIOGRAPHY EXAM DATE: 02/13/2018 03:39 PM. CLINICAL HISTORY: Dyspnea and malaise since yesterday. COMPARISON: 01/21/2018. TECHNIQUE: 2 views. FINDINGS: Interpretation is limited by rotation. Lungs/Pleura: No focal opacities evident. No pleural effusion. No pneumothorax. Normal volumes. Mediastinum: Heart and mediastinal contours are unremarkable with the exception of aortic calcifications. Other: Dextroconvex thoracolumbar scoliosis, exacerbated compared to 01/21/2018, possibly positional. Note is made of ongoing remodeling of old left rib fractures. IMPRESSION: No acute cardiopulmonary abnormality is detected. RADIA
[2018-02-13 16:17] LABS: FERRITIN 3.1 ng/mL (11.0-306.8)
[2018-02-13 16:33] LABS: % IRON SATURATION 5 % (20-50); IRON 21 ug/dL (28-170); TOTAL IRON BINDING CAPACITY 449 ug/dL (250-450); TRANSFERRIN 321 mg/dL (192-382)
[2018-02-13] MEDS ORDERED: SODIUM CHLORIDE 0.9% 1,000 ML IV ONE (16:38)
[2018-02-13 21:06] VITALS: BP 103/73
== END 2018-02-13 21:05 | disposition short-term general hospital (02) ==
LOC: EDUNIT# → ED 14:20
DX: K92.2 Gastrointestinal hemorrhage, unspecified (principal); J44.9 Chronic obstructive pulmonary disease, unspecified; I95.89 Other hypotension; M62.81 Muscle weakness (generalized); I10 Essential (primary) hypertension; Z79.82 Long term (current) use of aspirin; F17.200 Nicotine dependence, unspecified, uncomplicated
CPT/HCPCS: 36415; 36430; 71046; 80053; 82607; 82728; 83540; 83615; 83690; 83735; 83880; 84466; 84484; 85025; 85044; 86850; 86900; 86901; 86920; 93005; 94640; 96360; 99285; P9016

== ENCOUNTER 2018-09-16 08:19 | Outpatient (CLI) | payer OTHER ==
[2018-09-16] MEDS ORDERED: BUFFERED LIDOCAINE 10 ML SYRINGE ONE (08:36)
[2018-09-16] MEDS ORDERED: BUFFERED LIDOCAINE 10 ML SYRINGE IU ONE (10:22)
--- NOTE | 2018-09-16 11:46 | Ultrasound Report ---
Reason: NONTOXIC SINGLE THYROID NODULE Procedure Date: 09/16/2018 Accession Number: [id number] / [id number] Procedure: US - FNA Bx w/US Gnd 1st les CPT Code: 67156 FULL RESULT: EXAM: Thyroid Fine Needle Aspiration EXAM DATE: 09/16/2018 10:20 AM. CLINICAL HISTORY: FDG-avid nodule left thyroid gland on recent PET scan. COMPARISON: None. TECHNIQUE: The risks, benefits, and alternatives of the procedure were discussed with the patient. All questions were answered. Written and verbal consent were obtained. A site was marked over the left thyroid nodule in question under live sonographic evaluation, then subsequently prepped and draped in a sterile manner. Local anesthesia was performed with 1% lidocaine. 3 22 gauge fine-needle aspirates/passes were performed through the left thyroid nodule in question, then passed to the sales representative graphic art for preparation. Estimated blood loss was less than 1 mL. Sonographic images demonstrate needle placement within left thyroid nodule in question. Note: Patient had difficulty with supine positioning due to intermittent abdominal cramping and spinal scoliosis. Patient was unable to tolerate further biopsy following the third FNA. 2 FNA samples sent in CytoLyt; single sample sent in ThyroSeq. FINDINGS IMPRESSION: Successful FNA left thyroid nodule. Final recommendations pending results of histology. RADIA
--- NOTE | 2018-09-16 12:38 | Ultrasound Report ---
Reason: NONTOXIC SINGLE THYROID NODULE Procedure Date: 09/16/2018 Accession Number: [id number] / [id number] Procedure: US - Head or Neck Soft Tissue CPT Code: FULL RESULT: EXAM: THYROID ULTRASOUND EXAM DATE: 09/16/2018 09:28 AM. CLINICAL HISTORY: Nontoxic single thyroid nodule. COMPARISON: HEAD OR NECK SOFT TISSUE 05/12/2017 8:12 AM PET NECK TO MID THIGH 06/07/2018 1:53 PM. TECHNIQUE: Real time sonographic imaging of the thyroid was performed by the sports leadership instructor. Multiple direct sales representative static images were saved for review. FINDINGS: THYROID GLAND: Right Lobe: 3.7 x 2.9 x 1.7 cm, volume 9.5 cc. Normal background echotexture. Right Lobe Nodules: 3 mm hypoechoic likely solid avascular nodule midpole. Left Lobe: 4.3 x 2.8 x 1.8 cm, volume 11.3 cc. Normal background echotexture. Left Lobe Nodules: 1.7 x 1.4 x 1.6 mm circumscribed, isoechoic solid mass with tiny cystic component similar in appearance to prior ultrasound. Additional 3 mm cyst of the upper pole. Isthmus: 0.6 cm AP. Isthmic Nodules: None. LYMPH NODES: Not specifically evaluated; no adenopathy noted on the PET scan. OTHER: None. IMPRESSION: 1. 1.7 cm solid nodule of the left thyroid lobe, shown to be FDG avid on PET scanning. Nodule meets criteria for FNA. FNA is performed same day; please see separate report. 2. 3 mm hypoechoic solid nodule of the upper pole right thyroid does not meet FNA criteria based on size. Recommend follow-up in 1 year. Management recommendations are based on 2015 [place] [employer] Management Guidelines for Adult Patients with Thyroid Nodules and Differentiated Thyroid Cancer. RADIA
== END 2018-09-16 08:20 | disposition home or self-care (01) ==
LOC: DI 08:19
PROVIDERS: ATTEND Surgery
DX: E04.1 Nontoxic single thyroid nodule (principal)
CPT/HCPCS: 10005; 76536

== ENCOUNTER 2019-04-23 12:17 | Outpatient (CLI) | payer OTHER ==
--- NOTE | 2019-04-23 15:29 | XRAY Report ---
Reason: SHOULDER PAIN, LEFT, RADICULOPATHY Procedure Date: 04/23/2019 Accession Number: [id number] / [id number] Procedure: XR - Shoulder 3 View LT CPT Code: Final Report FULL RESULT: EXAM: LEFT SHOULDER RADIOGRAPHY EXAM DATE: 04/23/2019 12:32 PM. CLINICAL HISTORY: Shoulder pain, left, radiculopathy. COMPARISON: CHEST 1 VIEW 03/18/2017 6:18 AM. TECHNIQUE: 3 views. FINDINGS: Bones: Amorphous density projecting over the humeral head demonstrates appearance of what is felt to be a benign incidental bone lesion. No fracture or aggressive bone lesion. Joints: The glenohumeral and acromioclavicular joints are normally located. Soft tissues: There is somewhat linear appearing amorphous calcifications projecting medially and inferiorly to the glenoid surface on AP view. The location and appearance is not definitely that of intra-articular loose bodies. Differential diagnosis includes vascular calcifications versus ligamentous or musculotendinous calcifications. These calcifications are likely present dating back to at least 2016. IMPRESSION: Somewhat atypical location of indeterminate soft tissue calcifications in the greater region of the rotator cuff as described above, likely chronic. RADIA
== END 2019-04-23 12:18 | disposition home or self-care (01) ==
LOC: DI 12:17
PROVIDERS: ATTEND Family Medicine
DX: M25.812 Other specified joint disorders, left shoulder (principal)

== ENCOUNTER 2019-06-18 10:10 | Inpatient (IN) | payer MEDICARE, OTHER ==
[2019-06-18] MEDS ORDERED: ONDANSETRON 4 MG/2 ML VIAL IVP STA (11:12)
[2019-06-18] MEDS ORDERED: SODIUM CHLORIDE 0.9% 1,000 ML IV ONE ×2 (11:12→11:17)
[2019-06-18 11:13] LABS: BASOPHILS # (AUTO) 0.1 10^3/uL (0.0-0.1); BASOPHILS % (AUTO) 0.9 %; LYMPHOCYTES # (AUTO) 0.8 10^3/uL (1.5-3.5); LYMPHOCYTES % (AUTO) 14.8 %; MEAN CORPUSCULAR HEMOGLOBIN 30.8 pg (27.0-31.0); MEAN CORPUSCULAR VOLUME 96.3 fL (81.0-99.0); MEAN PLATELET VOLUME 10.1 fL (7.9-10.8); MONOCYTES # (AUTO) 1.1 10^3/uL (0.0-1.0); MONOCYTES % (AUTO) 18.8 %; NEUTROPHILS # (AUTO) 3.6 10^3/uL (1.5-6.6); PLT - PLATELET COUNT 271 10^3/uL (130-450); RED BLOOD COUNT 4.87 10^6/uL (4.20-5.40); RED CELL DISTRIBUTION WIDTH 13.1 % (12.0-15.0); WHITE BLOOD COUNT 5.6 x10^3/uL (4.8-10.8)
[2019-06-18] MEDS ORDERED: IPRATROPIUM/ALBUTEROL 3 ML NEB INH STA (11:17)
[2019-06-18] MEDS ORDERED: ACETAMINOPHEN 1,000 MG/100 ML 100 ML IV STA (11:18)
[2019-06-18] MEDS ORDERED: KETOROLAC 15 MG/ML VIAL IVP STA (11:18)
[2019-06-18] MEDS ORDERED: METOPROLOL 5 MG/5 ML VIAL IVP STA (11:19)
[2019-06-18 11:25] LABS: ALBUMIN 3.9 g/dL (3.2-5.5); ALBUMIN/GLOBULIN RATIO 1.1 (1.0-2.2); BILIRUBIN,TOTAL 1.5 mg/dL (0.2-1.0); CALCIUM 8.8 mg/dL (8.5-10.3); CREATININE 0.6 mg/dL (0.4-1.0); TOTAL PROTEIN 7.5 g/dL (6.7-8.2)
--- NOTE | 2019-06-18 11:44 | XRAY Report ---
Reason: SOA Procedure Date: 06/18/2019 Accession Number: [id number] / [id number] Procedure: XR - Chest 1 View X-Ray CPT Code: 25738 Final Report FULL RESULT: EXAM: CHEST RADIOGRAPHY EXAM DATE: 06/18/2019 11:18 AM. CLINICAL HISTORY: Shortness of breath. Sore throat and cough x4 days. COMPARISON: PET NECK TO MID THIGH 06/07/2018 1:53 PM CHEST 2 VIEW 02/13/2018 3:28 PM. TECHNIQUE: 1 view. FINDINGS: Lungs/Pleura: Hyperexpansion, compatible with known COPD. Patchy bibasilar opacities. No evidence of edema. Normal pulmonary vasculature. No pleural effusion or pneumothorax. Mediastinum: Unchanged mild cardiomegaly. Atherosclerotic calcifications within the aortic arch. Other: Thoracic dextroscoliosis. IMPRESSION: 1. COPD. 2. Unchanged mild cardiomegaly. 3. Patchy bibasilar opacities, new compared to 02/13/2018 radiograph, which could represent atelectasis or infiltrates. RADIA
[2019-06-18] MEDS ORDERED: ALBUTEROL NEB 2.5 MG/3 ML INH STA ×2 (11:56→13:39)
--- NOTE | 2019-06-18 13:34 | ED Physician Documentation ---
PD HPI DYSPNEA - Stated complaint Stated Complaint: SORE THROAT - Chief complaint Chief Complaint: Resp - History obtained from History obtained from: Patient - History of Present Illness Timing - onset: How many days ago (several days to a week. She is having fever chills general malaise cough and wheezing.) Timing - onset during: Light activity Timing - duration: Days (Several days to a week of progressively worsening cough malaise chills and dyspnea) Timing - details: Gradual onset, Still present Inciting event(s): URI. No: Out of meds, Immobilization/travel Improved by: Inhaler/neb Associated symptoms: Fever, Cough, Wheezing. No: Hemoptysis, Chest pain / discomfort, Palpitations, Bilateral edema Similar symptoms before: Has not had sx before Recently seen: Not recently seen Review of Systems Constitutional: reports: Fever, Chills, Myalgias Nose: reports: Congestion. denies: Rhinorrhea / runny nose Throat: denies: Sore throat Cardiac: denies: Chest pain / pressure, Palpitations Respiratory: reports: Dyspnea, Cough, Wheezing GI: reports: Nausea, Diarrhea. denies: Abdominal Pain, Vomiting Skin: denies: Rash, Lesions Neurologic: reports: Generalized weakness. 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 cancer : None HEENT: None Psych: Anxiety Musculoskeletal: None Derm: None - Past Surgical History Past Surgical History: No General: Appendectomy, Other /ORDERING MACHINE OPERATOR: Hysterectomy, Oophrectomy HEENT: Tonsil/Adenoidectomy - Present Medications Home Medications: Ambulatory Orders Medication Instructions Recorded Confirmed Ipratropium/Albuterol [Combivent 1 puffs INH QID 03/18/17 06/18/19 Respimat] Albuterol 2.5 mg INH Q4H PRN 04/18/17 06/18/19 Ipratropium/Albuterol [Duoneb] 3 ml INH BID 08/09/17 06/18/19 Fluticasone/Salmeterol [Advair 1 inh INH BID 06/18/19 06/18/19 250-50 Diskus] Gabapentin 100 mg PO QID 06/18/19 06/18/19 LORazepam [Lorazepam] 1 mg PO TID PRN 06/18/19 06/18/19 diltiaZEM CD [Cardizem Cd] 240 mg PO DAILY 06/18/19 06/18/19 - Allergies Allergies/Adverse Reactions: Allergies Allergy/AdvReac Type Severity Reaction Status Date / Time No Known Drug Allergies Allergy Verified 06/18/19 10:20 - Social History Does the pt smoke?: Yes Smoking Status: Former smoker Does the pt drink ETOH?: No Does the pt have substance abuse?: No - Immunizations Immunizations are current?: Yes - POLST Patient has POLST: No POLST Status: Full Code PD ED PE NORMAL - Vitals Vital signs reviewed: Yes - General General: Alert and oriented X 3, Well developed/nourished - HEENT HEENT: Moist mucous membranes, Pharynx benign - Neck Neck: Supple, no meningeal sign, No adenopathy - Cardiac Cardiac: No murmur. No: RRR (Regular but tachycardic.) - Respiratory Respiratory: No: No respiratory distress (Some mild tachypnea and accessory muscle use.), Clear bilaterally (There is diffuse wheezing. Decreased breath sounds on both bases. There is some coarse sounds in the right lower lung field.) - Abdomen Abdomen: Soft, Non tender - Female Female : Deferred - Rectal Rectal: Deferred - Back Back: No CVA TTP - Derm Derm: Normal color, Warm and dry - Extremities Extremities: No tenderness to palpate, Normal ROM s pain, No edema, No calf tenderness / cord - Neuro Neuro: Alert and oriented X 3, No motor deficit - Psych Psych: Normal mood Results - Vitals Vitals: Vital Signs - 24 hr 06/18/19 06/18/19 06/18/19 10:20 10:24 10:47 Temperature 37.6 C H 38.8 C H 37.1 C Heart Rate 139 H 131 H 132 H Respiratory 22 28 H 20 Rate Blood Pressure 135/93 H 157/121 H O2 Saturation 81 L 93 94 06/18/19 06/18/19 06/18/19 11:30 11:45 12:01 Temperature Heart Rate 121 H 120 H 115 H Respiratory 20 20 18 Rate Blood Pressure 141/92 H 137/95 H O2 Saturation 97 96 06/18/19 06/18/19 06/18/19 12:35 13:05 13:35 Temperature 37.2 C 37.1 C 36.9 C Heart Rate 117 H 106 H 106 H Respiratory 24 24 20 Rate Blood Pressure 135/99 H 131/82 H 126/88 H O2 Saturation 94 94 93 06/18/19 13:56 Temperature Heart Rate 108 H Respiratory 20 Rate Blood Pressure O2 Saturation Oxygen O2 Source Nasal cannula Oxygen Flow Rate 6 - EKG (time done) 11:10 Rate: Rate (enter#) (129) Rhythm: Sinus tachycardia [place]: Normal Intervals: Normal [place] QRS: Normal Ischemia: Normal ST segments, Non specific changes. No: ST elevation c/w ischemia, ST depression - Labs Labs: Laboratory Tests 06/18/19 06/18/19 06/18/19 10:43 10:43 10:43 WBC 5.6 RBC 4.87 Hgb 15.0 Hct 46.9 MCV 96.3 MCH 30.8 MCHC 32.0 RDW 13.1 Plt Count 271 MPV 10.1 Neut # (Auto) 3.6 Lymph # (Auto) 0.8 L [place] # (Auto) 1.1 H Eos # (Auto) 0.0 Baso # (Auto) 0.1 Absolute Nucleated RBC 0.00 Nucleated RBC % 0.0 Sodium 134 L Potassium 3.9 Chloride 96 L Carbon Dioxide 25 Anion Gap 13.0 BUN 15 Creatinine 0.6 Estimated GFR (MDRD) 100 Glucose 106 H Lactic Acid 0.3 L Calcium 8.8 Total Bilirubin 1.5 H AST 16 ALT 10 Alkaline Phosphatase 93 B-Natriuretic Peptide Total Protein 7.5 Albumin 3.9 Globulin 3.6 Albumin/Globulin Ratio 1.1 Urine Color Urine Clarity Urine pH Ur Specific [place] Urine Protein Urine Glucose (UA) Urine Ketones Urine Occult Blood Urine Nitrite Urine Bilirubin Urine Urobilinogen Ur Leukocyte Esterase Urine RBC Urine WBC Ur Squamous Epith Cells Urine Bacteria Urine Culture Comments Influenza A (Rapid) Influenza B (Rapid) 06/18/19 06/18/19 06/18/19 10:43 11:25 13:25 WBC RBC Hgb Hct MCV MCH MCHC RDW Plt Count MPV Neut # (Auto) Lymph # (Auto) [place] # (Auto) Eos # (Auto) Baso # (Auto) Absolute Nucleated RBC Nucleated RBC % Sodium Potassium Chloride Carbon Dioxide Anion Gap BUN Creatinine Estimated GFR (MDRD) Glucose Lactic Acid Calcium Total Bilirubin AST ALT Alkaline Phosphatase B-Natriuretic Peptide 100 Total Protein Albumin Globulin Albumin/Globulin Ratio Urine Color YELLOW Urine Clarity CLEAR Urine pH 6.0 Ur Specific [place] 1.020 Urine Protein TRACE Urine Glucose (UA) NEGATIVE Urine Ketones 40 H Urine Occult Blood NEGATIVE Urine Nitrite NEGATIVE Urine Bilirubin NEGATIVE Urine Urobilinogen 0.2 (NORMAL) Ur Leukocyte Esterase NEGATIVE Urine RBC None Seen Urine WBC 0-3 Ur Squamous Epith Cells FEW Squamous Urine Bacteria None Seen Urine Culture Comments NOT INDICATED Influenza A (Rapid) Negative Influenza B (Rapid) Negative - Rads (name of study) chest Radiology: Prelim report reviewed (Bibasilar opacities consistent with early infiltrates.), See rad report PD MEDICAL DECISION MAKING - ED course Complexity details: reviewed results (Small infiltrates on chest x-ray. The degree of infiltrate does not correlate with the degree of respiratory discomfort and hypoxia so I second chest to its COPD is a major part of the component as well. She does not have any risk factors for clots. Her symptoms have been gradual in progression and she does have wheezing consistent with COPD.), re-evaluated patient (Her work of breathing as well as her oxygen need have improved after nebulizer treatments and some IV fluids. She does sound to have increase of her COPD associated with an upper respiratory infection and apparent lower respiratory infection as well with some early infiltrates on chest x-ray. She is still on 2 to 3 L nasal cannula for maintaining sats above 92%. Her work of breathing is improved and she is able to converse and rest comfortably.), considered differential (Sounds like upper respiratory infection and consider the possibility of bronchitis or pneumonia given her degree of respiratory distress and hypoxia. She does have wheezing as well suggesting some exacerbation of her COPD/asthma. Will get labs x-ray give IV fluids nebulizers and medications.), d/w patient Departure - Departure Disposition: [facility] DC/Xfer Clinical Impression: COPD exacerbation, Acute pneumonia, Hypoxia Condition: Stable Record reviewed to determine appropriate education?: Yes
[2019-06-18] MEDS ORDERED: AZITHROMYCIN INJ 500 MG in SODIUM CHLORIDE 0.9% 250 ML IV STA (13:39)
[2019-06-18] MEDS ORDERED: cefTRIAXone 1 GM VIAL IVP STA (13:39)
[2019-06-18 13:48] LABS: GLUCOSE, URINE (UA) NEGATIVE (NEGATIVE); KETONES,URINE (UA) 40 mg/dL (NEGATIVE); LEUKOCYTE ESTERASE, URINE NEGATIVE (NEGATIVE); NITRITE,URINE NEGATIVE (NEGATIVE); OCCULT BLOOD,URINE NEGATIVE (NEGATIVE); PROTEIN,URINE TRACE mg/dL (NEGATIVE); UROBILINOGEN,URINE 0.2 (NORMAL) E.U./dL (NORMAL)
[2019-06-18 13:58] LABS: CLARITY,URINE CLEAR (CLEAR)
[2019-06-18 14:00] LABS: BILIRUBIN,URINE NEGATIVE (NEGATIVE); ICTOTEST,URINE NEGATIVE
[2019-06-18 14:08] LABS: RBC,URINE None Seen /HPF (0-5); SQUAMOUS EPITHELIAL CELL,UR FEW Squamous (<= Few)
[2019-06-18 14:17] LABS: BACTERIA,URINE None Seen /HPF (None Seen)
[2019-06-18] MEDS ORDERED: ACETAMINOPHEN 325 MG TABLET PO PRN (14:24)
[2019-06-18] MEDS ORDERED: ONDANSETRON 4 MG/2 ML VIAL IVP PRN (14:24)
[2019-06-18] MEDS: diltiaZEM 30 MG TABLET PO SCH ×2 (15:59→21:51)
[2019-06-18] MEDS: IBUPROFEN 600 MG TABLET PO PRN (15:59)
[2019-06-18] MEDS: SODIUM CHLORIDE FLUSH 0.9% 10 ML SYRINGE IVP SCH ×2 (17:36→23:29)
[2019-06-18] MEDS: methylPREDNISolone SUCCINATE 40 MG/ML VIAL IVP SCH ×2 (17:36→21:52)
[2019-06-18] MEDS: SACCHAROMYCES BOULARDII 250 MG CAPSULE PO SCH (17:36)
[2019-06-18] MEDS: GABAPENTIN 100 MG CAPSULE PO SCH ×2 (17:36→21:10)
[2019-06-18] MEDS: LEVALBUTEROL 1.25 MG/3 ML NEB INH SCH ×2 (17:53→23:15)
[2019-06-18] MEDS ORDERED: IPRATROPIUM/ALBUTEROL 3 ML NEB INH PRN (19:00)
--- NOTE | 2019-06-18 19:18 | HISTORY & PHYSICAL EXAMINATION ---
DATE OF SERVICE: 06/18/2019 Physician: Clarissa Bennett MD HISTORY OF PRESENT ILLNESS: This is a 63-year-old white female with a history of paroxysmal atrial fibrillation, hypertension, COPD, ex-smoker. She presented with 3-day history of slowly worsening shortness of breath, fatigue, cough with minimal sputum production and malaise. She felt more winded today and therefore came to the emergency room. She was found to be hypoxic. She received nebulizers with some improvement. Chest x-ray showed bilateral pneumonias and she was admitted for management of hypoxia, community-acquired pneumonia and a COPD exacerbation. PAST MEDICAL HISTORY: COPD, ex-smoker, paroxysmal atrial fibrillation, hypertension, uterine cancer, appendectomy, hysterectomy and oophorectomy. MEDICATIONS 1. Combivent inhaler q.i.d. 2. Albuterol p.r.n. 3. DuoNeb b.i.d. 4. Advair Diskus b.i.d. 5. Gabapentin 100 mg q.i.d. 6. Lorazepam 1 mg t.i.d. p.r.n. agitation. 7. Diltiazem CD 240 mg daily. ALLERGIES: NO KNOWN ALLERGIES. SOCIAL HISTORY: She lives alone. She is an ex-smoker, drinks no alcohol, no drug use. FAMILY HISTORY: Noncontributory. REVIEW OF SYSTEMS: The patient signed a POLST in 10/2017, wants to be DNR. PHYSICAL EXAMINATION GENERAL: Elderly white female who appears older than her age. She has significant skin wrinkling and leathery dark skin, consistent with heavy smoking history. She is in mild respiratory distress, speaking with pursed lip breathing. VITAL SIGNS: Temperature was 38.8 on admission, heart rate 139 in atrial fibrillation. Blood pressure 135-157 over 90-120, room air saturation 81%, which increased to 93% with nasal cannula supplemental oxygen. HEENT: Reveals pursed lip breathing as we are speaking, marked wrinkling of her skin of her face. NECK: No JVD in a supine position. CHEST: Diffuse prolonged air movement. No wheezes or rales. HEART: Normal heart sounds without murmurs and now the heart rate is in the 80s. ABDOMEN: Soft, positive bowel sounds, nontender. EXTREMITIES: No clubbing or cyanosis. NEUROLOGIC: Grossly intact. LABORATORY DATA: Sodium 134, potassium 3.9. Normal BUN and creatinine. Normal lactic acid of 0.3. Normal liver tests. Bilirubin 1.5. BNP normal at 100. White blood count 5.6, hemoglobin 15, platelet count 271. Urinalysis unremarkable. Serology was negative for influenza A and influenza B. Chest x-ray: Cardiomegaly, bibasilar infiltrates. EKG: Sinus tachy, PVC. IMPRESSION/DIAGNOSES 1. Chronic obstructive pulmonary disease exacerbation. 2. Community-acquired pneumonia. 3. Tachycardia. This tachycardia is due to her infection which has been corrected with IV boluses of heart rate slowing medication, given in the ER. 3. Paroxysmal Atrial fibrillation 4. Hyponatremia. PLAN: Admit the patient to a medical bed, on telemetry. Continue with her medication for the current tachycardia with Cardizem. Begin IV ceftriaxone and IV Zithromax as done in the ER after blood cultures and sputum cultures if she makes it. Begin Lactobacillus, Mucinex, singular and nebulizers: Xopenex scheduled because of the heart rate. DuoNeb p.r.n. Continue with supplemental oxygen, weaning down as needed. CODE STATUS: DNR. DEEP VENOUS THROMBOSIS PROPHYLAXIS: Pharmacotherapy using Lovenox. ATTESTATION: The patient is expected to be discharged or transferred to another facility within 96 hours: Yes. cc: HILDA TD: 06/18/2019 18:36 MTDSerena
[2019-06-18] MEDS: guaiFENesin 600 MG TABLET PO SCH (21:10)
[2019-06-18] MEDS: FAMOTIDINE 20 MG TABLET PO SCH ×2 (21:11→21:19)
[2019-06-18] MEDS: MONTELUKAST 10 MG TABLET PO SCH (21:11)
[2019-06-18] MEDS: SODIUM CHLORIDE FLUSH 0.9% 10 ML SYRINGE IVP PRN (21:52)
[2019-06-18] MEDS: BENZOCAINE/MENTHOL LOZENGE MM PRN (23:29)
[2019-06-19] MEDS: methylPREDNISolone SUCCINATE 40 MG/ML VIAL IVP SCH ×2 (05:51→14:50)
[2019-06-19] MEDS: diltiaZEM 30 MG TABLET PO SCH ×3 (05:51→21:28)
[2019-06-19] MEDS: SODIUM CHLORIDE FLUSH 0.9% 10 ML SYRINGE IVP PRN (05:52)
--- NOTE | 2019-06-19 07:24 | PHARMACY PROGRESS NOTE ---
- Best Possible Medication History Admit Date and Time: 06/18/19 1417 Processed by: Pharmacy Medication History completed: Yes Patient Interview: Pt unable to participate Secondary Source(s): Physician records, Pharmacy records As the person ultimately responsible for medication therapy, providers are able to order a medication from an existing home medication list in [facility] via the "Reconcile Routine" prior to Confirmation of that medication by software support representative. Such practice is discouraged except when the physician, in their clinical judgment, deems that a medical need exists for a medication without regard to previous use.
[2019-06-19] MEDS: LEVALBUTEROL 1.25 MG/3 ML NEB INH SCH ×4 (07:45→19:25)
[2019-06-19] MEDS: cefTRIAXone 2 GM in SODIUM CHLORIDE 0.9% MINIBAG 100 ML IV SCH (09:26)
[2019-06-19] MEDS: guaiFENesin 600 MG TABLET PO SCH ×2 (09:26→21:29)
[2019-06-19] MEDS: GABAPENTIN 100 MG CAPSULE PO SCH ×4 (09:26→21:29)
[2019-06-19] MEDS: FAMOTIDINE 20 MG TABLET PO SCH ×3 (09:26→21:30)
[2019-06-19] MEDS: ENOXAPARIN 40 MG/0.4 ML SYRINGE SUBQ SCH (09:26)
[2019-06-19] MEDS: SACCHAROMYCES BOULARDII 250 MG CAPSULE PO SCH ×2 (09:26→16:59)
[2019-06-19] MEDS: ASPIRIN EC 81 MG TABLET PO SCH ×2 (09:26→10:04)
[2019-06-19] MEDS: SODIUM CHLORIDE FLUSH 0.9% 10 ML SYRINGE IVP SCH ×3 (09:27→23:22)
[2019-06-19] MEDS: diltiaZEM CD 240 MG CAPSULE PO SCH (10:13)
[2019-06-19] MEDS: BENZOCAINE/MENTHOL LOZENGE MM PRN ×2 (10:13→14:50)
[2019-06-19] MEDS: AZITHROMYCIN INJ 500 MG in SODIUM CHLORIDE 0.9% 250 ML IV SCH (10:19)
--- NOTE | 2019-06-19 11:51 | PROVIDER PROGRESS NOTE ---
Assessment/Plan - Problem List (1) COPD exacerbation Assessment/Plan: Continue nebs, IV steroids, treat underlying infection (2) Community acquired pneumonia Assessment/Plan: No sputum culture was obtained, will order. Continue with empiric IV Zithromax and IV Ceftriaxone (3) Shoulder pain, left Qualifiers: Chronicity: chronic Qualified Code(s): M25.512 - Pain in left shoulder; G89.29 - Other chronic pain Assessment/Plan: The patient reports many months of trouble with her left shoulder and that Dr. Pisnao is waiting for the results of the left shoulder x-ray which was done 2 and half months ago. She was to see him today for this complaint but had to cancel the appointment. Pain meds as needed (4) Hyponatremia Assessment/Plan: Resolved - Current Meds Current Meds: Current Medications Generic Name Dose Route Start Last Admin Trade Name Freq PRN Reason Stop Dose Admin Aspirin 81 mg 06/19/19 09:00 06/19/19 10:04 Ecotrin PO Not Given DAILY MATTHEW Diltiazem HCl 240 mg 06/19/19 09:00 06/19/19 10:13 Cardizem Cd PO 240 mg DAILY MATTHEW Administration Diltiazem HCl 30 mg 06/18/19 16:00 06/19/19 05:51 Cardizem PO 30 mg Q8HR MATTHEW Administration Enoxaparin Sodium 40 mg 06/19/19 09:00 06/19/19 09:26 Lovenox SUBQ 40 mg DAILY MATTHEW Administration Famotidine 20 mg 06/18/19 21:00 06/19/19 10:04 Pepcid PO 20 mg BID MATTHEW Administration Gabapentin 100 mg 06/18/19 17:00 06/19/19 09:26 Neurontin PO 100 mg QID MATTHEW Administration Guaifenesin 600 mg 06/18/19 21:00 06/19/19 09:26 Mucinex PO 600 mg BID MATTHEW Administration Azithromycin 500 mg/ Sodium 250 mls @ 250 mls/hr 06/19/19 10:00 06/19/19 10:19 Chloride IV 250 mls/hr DAILY@1000 MATTHEW Administration Ceftriaxone Sodium 2 gm/ 100 mls @ 200 mls/hr 06/19/19 09:00 06/19/19 10:05 Sodium Chloride IV Infused DAILY MATTHEW Infusion Ibuprofen 600 mg 06/18/19 14:24 06/18/19 15:59 Motrin PO 600 mg Q6HR PRN Administration Pain 1 to 4 Levalbuterol HCl 1.25 mg 06/18/19 17:00 06/19/19 07:45 Xopenex INH 1.25 mg RTQID MATTHEW Administration Methylprednisolone 80 mg 06/18/19 18:00 06/19/19 05:51 Solu-Medrol (40mg Vial) IVP 80 mg TID MATTHEW Administration Montelukast Sodium 10 mg 06/18/19 21:00 06/18/19 21:11 Singulair PO Not Given QPM MATTHEW Saccharomyces Boulardii 250 mg 06/18/19 17:00 06/19/19 09:26 Florastor PO 250 mg BIDWM MATTHEW Administration Sodium Chloride 10 ml 06/18/19 14:24 06/19/19 05:52 Normal Saline Flush 0.9% IVP 10 ml PRN PRN Administration NEEDED PER PROVIDER ORDERS Sodium Chloride 10 ml 06/18/19 17:00 06/19/19 09:27 Normal Saline Flush 0.9% IVP 10 ml 0100,0900,1700 MATTHEW Administration Throat Lozenges 1 lozenge 06/18/19 22:03 06/19/19 10:13 Cepacol MM 1 lozenge Q2HR PRN Administration Throat pain - Lab Result Fish Bone Diagrams: 06/19/19 12:38 06/19/19 12:38 - Additional Planning My Orders: My Active Orders 06/18/19 14:24 Initiate Bronchodialator Ilsa [RC] .PROTOCOL Initiate Secretion Clearance P [RC] .PROTOCOL Telemetry- [RC] Q4HR Acetaminophen [Tylenol] 650 mg PO Q4HR PRN Ibuprofen [Motrin] 600 mg PO Q6HR PRN Ondansetron Inj [Zofran Inj] 4 mg IVP Q6HR PRN Sodium Chloride Flush 0.9% [Normal Saline Flush 0.9%] 10 ml IVP PRN PRN 06/18/19 14:25 Activity Orders [RC] Q2HR IO [RC] IOSHIFT IV Insert [RC] .ONCE Initiate Bowel Care Protocol [RC] .protocol Initiate Line Care Protocol [RC] QSHIFT Initiate Personal Care Protoco [RC] .protocol Oxygen Therapy [RC] Routine Vital Signs [RC] Q4H Code Status [OTHERS] Routine Condition of Patient [OTHERS] Routine DVT Prophylaxis [OTHERS] Routine 06/18/19 14:26 Initiate Line Care Protocol [RC] QSHIFT 06/18/19 14:27 LORazepam [Ativan] 1 mg PO TID PRN 06/18/19 16:00 diltiaZEM [Cardizem] 30 mg PO Q8HR 06/18/19 16:16 Tobacco Cessation [RC] .ONCE 06/18/19 17:00 Gabapentin [Neurontin] 100 mg PO QID Levalbuterol [Xopenex] 1.25 mg INH RTQID Saccharomyces Boulardii [Florastor] 250 mg PO BIDWM Sodium Chloride Flush 0.9% [Normal Saline Flush 0.9%] 10 ml IVP 0100,0900,1700 06/18/19 18:00 methylPREDNISolone SUCCINATE [SOLU-Medrol (40MG VIAL)] 80 mg IVP TID 06/18/19 18:02 RT [Nebulizer/MDI Tx.] [RC] .QID/ Q4 PRN 06/18/19 19:00 Ipratropium/Albuterol [Duoneb] 3 ml INH RTQ4H PRN 06/18/19 21:00 Famotidine [Pepcid] 20 mg PO BID Montelukast [Singulair] 10 mg PO QPM guaiFENesin [Mucinex] 600 mg PO BID 06/18/19 22:03 Benzocaine/Menthol [Cepacol] 1 lozenge MM Q2HR PRN 06/18/19 Dinner Soft Mechanical Diet [DIET] 06/19/19 09:00 Aspirin EC [Ecotrin] 81 mg PO DAILY Enoxaparin [Lovenox] 40 mg SUBQ DAILY cefTRIAXone [Rocephin] 2 gm Sodium Chloride 0.9% Minibag [Normal Saline 0.9% Minibag] 100 ml IV DAILY diltiaZEM CD [Cardizem Cd] 240 mg PO DAILY 06/19/19 10:00 Azithromycin Inj [Zithromax Inj] 500 mg Sodium Chloride 0.9% [Normal Saline 0.9%] 250 ml IV DAILY@1000 Subjective - Subjective Patient Reports: Feeling Better Nursing Reports: Other (Patient is tearful over pain at left hand IV site. She also refused to work with physical therpy. RN reported [facility].) Objective Vital Signs: Vital Signs - 24 hr 06/18/19 06/18/19 06/18/19 12:01 12:35 13:05 Temperature 37.2 C 37.1 C Heart Rate 115 H 117 H 106 H Heart Rate [ Brachial] Heart Rate [ Monitoring electrodes] Respiratory 18 24 24 Rate Blood Pressure 137/95 H 135/99 H 131/82 H Blood Pressure [Left Brachial artery] Blood Pressure [Right Brachial artery] O2 Saturation 96 94 94 06/18/19 06/18/19 06/18/19 13:35 13:56 14:22 Temperature 36.9 C Heart Rate 106 H 108 H 106 H Heart Rate [ Brachial] Heart Rate [ Monitoring electrodes] Respiratory 20 20 22 Rate Blood Pressure 126/88 H 117/90 H Blood Pressure [Left Brachial artery] Blood Pressure [Right Brachial artery] O2 Saturation 93 92 06/18/19 06/18/19 06/18/19 14:57 15:15 15:58 Temperature 37.0 C 36.3 C L Heart Rate 106 H Heart Rate [ Brachial] Heart Rate [ 108 H 108 H Monitoring electrodes] Respiratory 24 24 Rate Blood Pressure 123/96 H Blood Pressure 113/78 [Left Brachial artery] Blood Pressure [Right Brachial artery] O2 Saturation 93 88 L 91 L 06/18/19 06/18/19 06/18/19 15:59 17:24 17:43 Temperature 36.3 C L Heart Rate Heart Rate [ Brachial] Heart Rate [ 119 H Monitoring electrodes] Respiratory 24 Rate Blood Pressure 113/78 Blood Pressure 138/82 H [Left Brachial artery] Blood Pressure [Right Brachial artery] O2 Saturation 88 L 91 L 06/18/19 06/18/19 06/18/19 17:53 21:00 21:51 Temperature 36.7 C Heart Rate 115 H Heart Rate [ 104 H Brachial] Heart Rate [ Monitoring electrodes] Respiratory 20 20 Rate Blood Pressure 136/87 H Blood Pressure [Left Brachial artery] Blood Pressure 136/87 H [Right Brachial artery] O2 Saturation 94 06/18/19 06/18/19 06/19/19 23:16 23:27 05:32 Temperature 36.5 C 36.7 C Heart Rate 120 H Heart Rate [ 114 H 94 Brachial] Heart Rate [ Monitoring electrodes] Respiratory 22 20 20 Rate Blood Pressure Blood Pressure [Left Brachial artery] Blood Pressure 131/85 H 134/82 H [Right Brachial artery] O2 Saturation 93 97 06/19/19 06/19/19 06/19/19 05:51 07:53 08:21 Temperature 36.6 C Heart Rate 70 Heart Rate [ 95 Brachial] Heart Rate [ Monitoring electrodes] Respiratory 18 20 Rate Blood Pressure 134/82 H Blood Pressure [Left Brachial artery] Blood Pressure 125/97 H [Right Brachial artery] O2 Saturation 91 L Oxygen O2 Source Nasal cannula Oxygen Flow Rate 6 I&O (Last 24 Hrs): Intake and Output Totals x24h 06/17/19 06/18/19 06/19/19 23:59 23:59 23:59 Intake Total 2410 600 Balance 2410 600 General: Alert HEENT: Mucous membr. moist/pink, Other (Etes red, crying. Marked skin creases and leathery skin.) Neck: Supple, No JVD Neuro: Alert, Non Focal Cardiovascular: Regular rate, No murmurs Respiratory: No respiratory distress, Other (Scattered wheezes.) Abdomen: Soft Extremities: No edema - Results Results: Laboratory Results WBC 5.6 x10^3/uL (4.8-10.8) 06/18/19 10:43 RBC 4.87 10^6/uL (4.20-5.40) 06/18/19 10:43 Hgb 15.0 g/dL (12.0-16.0) 06/18/19 10:43 Hct 46.9 % (37.0-47.0) 06/18/19 10:43 MCV 96.3 fL (81.0-99.0) 06/18/19 10:43 MCH 30.8 pg (27.0-31.0) 06/18/19 10:43 MCHC 32.0 g/dL (32.0-36.0) 06/18/19 10:43 RDW 13.1 % (12.0-15.0) 06/18/19 10:43 Plt Count 271 10^3/uL (130-450) 06/18/19 10:43 MPV 10.1 fL (7.9-10.8) 06/18/19 10:43 Neut # (Auto) 3.6 10^3/uL (1.5-6.6) 06/18/19 10:43 Lymph # (Auto) 0.8 10^3/uL (1.5-3.5) L 06/18/19 10:43 [place] # (Auto) 1.1 10^3/uL (0.0-1.0) H 06/18/19 10:43 Eos # (Auto) 0.0 10^3/uL (0.0-0.7) 06/18/19 10:43 Baso # (Auto) 0.1 10^3/uL (0.0-0.1) 06/18/19 10:43 Absolute Nucleated RBC 0.00 x10^3/uL 06/18/19 10:43 Nucleated RBC % 0.0 /100WBC 06/18/19 10:43 Sodium 134 mmol/L (135-145) L 06/18/19 10:43 Potassium 3.9 mmol/L (3.5-5.0) 06/18/19 10:43 Chloride 96 mmol/L (101-111) L 06/18/19 10:43 Carbon Dioxide 25 mmol/L (21-32) 06/18/19 10:43 Anion Gap 13.0 (6-13) 06/18/19 10:43 BUN 15 mg/dL (6-20) 06/18/19 10:43 Creatinine 0.6 mg/dL (0.4-1.0) 06/18/19 10:43 Estimated GFR (MDRD) 100 (>89) 06/18/19 10:43 Glucose 106 mg/dL (70-100) H 06/18/19 10:43 Lactic Acid 0.3 mmol/L (0.5-2.2) L 06/18/19 10:43 Calcium 8.8 mg/dL (8.5-10.3) 06/18/19 10:43 Total Bilirubin 1.5 mg/dL (0.2-1.0) H 06/18/19 10:43 AST 16 IU/L (10-42) 06/18/19 10:43 ALT 10 IU/L (10-60) 06/18/19 10:43 Alkaline Phosphatase 93 IU/L (42-121) 06/18/19 10:43 B-Natriuretic Peptide 100 pg/mL (5-100) 06/18/19 10:43 Total Protein 7.5 g/dL (6.7-8.2) 06/18/19 10:43 Albumin 3.9 g/dL (3.2-5.5) 06/18/19 10:43 Globulin 3.6 g/dL (2.1-4.2) 06/18/19 10:43 Albumin/Globulin Ratio 1.1 (1.0-2.2) 06/18/19 10:43 Urine Color YELLOW 06/18/19 13:25 Urine Clarity CLEAR (CLEAR) 06/18/19 13:25 Urine pH 6.0 PH (5.0-7.5) 06/18/19 13:25 Ur Specific George 1.020 (1.002-1.030) 06/18/19 13:25 Urine Protein TRACE mg/dL (NEGATIVE) 06/18/19 13:25 Urine Glucose (UA) NEGATIVE mg/dL (NEGATIVE) 06/18/19 13:25 Urine Ketones 40 mg/dL (NEGATIVE) H 06/18/19 13:25 Urine Occult Blood NEGATIVE (NEGATIVE) 06/18/19 13:25 Urine Nitrite NEGATIVE (NEGATIVE) 06/18/19 13:25 Urine Bilirubin NEGATIVE (NEGATIVE) 06/18/19 13:25 Urine Urobilinogen 0.2 (NORMAL) E.U./dL (NORMAL) 06/18/19 13:25 Ur Leukocyte Esterase NEGATIVE (NEGATIVE) 06/18/19 13:25 Urine RBC None Seen /HPF (0-5) 06/18/19 13:25 Urine WBC 0-3 /HPF (0-5) 06/18/19 13:25 Ur Squamous Epith Cells FEW Squamous (<= Few) 06/18/19 13:25 Urine Bacteria None Seen /HPF (None Seen) 06/18/19 13:25 Urine Culture Comments NOT INDICATED 06/18/19 13:25 Influenza A (Rapid) Negative (Negative) 06/18/19 11:25 Influenza B (Rapid) Negative (Negative) 06/18/19 11:25 - Procedures Procedures: Procedures ASSIST W CARDIAC OUTPUT W PULS COMPRESSION, CONTINUOUS (07/13/15) ASSISTANCE WITH RESPIRATORY VENTILATION, 24-96 HRS, CPAP (07/13/15) DRAINAGE OF R PLEURAL CAV WITH DRAIN DEV, PERC APPROACH (07/13/15) EXCISION OF LIVER, OPEN APPROACH, DIAGNOSTIC (10/03/17) INSERTION OF ENDOTRACHEAL AIRWAY INTO TRACHEA, VIA OPENING (07/13/15) INSERTION OF INFUSION DEV INTO SUP VENA CAVA, PERC APPROACH (07/13/15) INSPECTION OF UPPER INTESTINAL TRACT, ENDO (01/21/18) INTRODUCTION OF NUTRITIONAL INTO CENTRAL VEIN, PERC APPROACH (07/13/15) MONITORING OF VENOUS PRESSURE, CENTRAL, PERC APPROACH (07/13/15) REPAIR LEFT INGUINAL REGION, OPEN APPROACH (10/03/17) RESECTION OF APPENDIX, OPEN APPROACH (07/13/15) RESECTION OF BILATERAL FALLOPIAN TUBES, OPEN APPROACH (10/03/17) RESECTION OF BILATERAL OVARIES, OPEN APPROACH (10/03/17) RESECTION OF UTERUS, OPEN APPROACH (10/03/17) RESPIRATORY VENTILATION, 24-96 CONSECUTIVE HOURS (07/13/15) TRANSFUSE NONAUT RED BLOOD CELLS IN PERIPH VEIN, PERC (01/21/18)
[2019-06-19 12:51] LABS: BASOPHILS % (AUTO) 0.3 %; HGB - HEMOGLOBIN 13.5 g/dL (12.0-16.0); LYMPHOCYTES # (AUTO) 0.5 10^3/uL (1.5-3.5); LYMPHOCYTES % (AUTO) 14.9 %; MEAN CORPUSCULAR HEMOGLOBIN 30.3 pg (27.0-31.0); MEAN CORPUSCULAR HGB CONC 31.5 g/dL (32.0-36.0); MEAN CORPUSCULAR VOLUME 96.2 fL (81.0-99.0); MEAN PLATELET VOLUME 9.7 fL (7.9-10.8); MONOCYTES # (AUTO) 0.3 10^3/uL (0.0-1.0); MONOCYTES % (AUTO) 9.6 %; NEUTROPHILS # (AUTO) 2.6 10^3/uL (1.5-6.6); NEUTROPHILS % (AUTO) 74.1 %; PLT - PLATELET COUNT 270 10^3/uL (130-450); RED BLOOD COUNT 4.45 10^6/uL (4.20-5.40); RED CELL DISTRIBUTION WIDTH 12.9 % (12.0-15.0); WHITE BLOOD COUNT 3.6 x10^3/uL (4.8-10.8)
[2019-06-19 13:01] LABS: CALCIUM 8.8 mg/dL (8.5-10.3); CREATININE 0.6 mg/dL (0.4-1.0)
[2019-06-19] MEDS: LORazepam 1 MG TABLET PO PRN ×2 (14:50→21:36)
[2019-06-19] MEDS: methylPREDNISolone SUCCINATE 125 MG/2 ML VIAL IVP SCH (21:30)
[2019-06-19] MEDS: MONTELUKAST 10 MG TABLET PO SCH (21:33)
[2019-06-20] MEDS: BENZOCAINE/MENTHOL LOZENGE MM PRN ×2 (01:02→05:31)
[2019-06-20 05:09] LABS: CALCIUM 8.9 mg/dL (8.5-10.3); CREATININE 0.7 mg/dL (0.4-1.0)
[2019-06-20] MEDS: methylPREDNISolone SUCCINATE 125 MG/2 ML VIAL IVP SCH ×3 (05:30→21:56)
[2019-06-20] MEDS: diltiaZEM 30 MG TABLET PO SCH ×2 (05:30→12:17)
[2019-06-20] MEDS: SODIUM CHLORIDE FLUSH 0.9% 10 ML SYRINGE IVP PRN (05:31)
[2019-06-20] MEDS: LORazepam 1 MG TABLET PO PRN ×3 (05:38→21:56)
[2019-06-20] MEDS: LEVALBUTEROL 1.25 MG/3 ML NEB INH SCH ×4 (07:23→19:47)
[2019-06-20] MEDS: ENOXAPARIN 40 MG/0.4 ML SYRINGE SUBQ SCH (08:53)
[2019-06-20] MEDS: GABAPENTIN 100 MG CAPSULE PO SCH ×4 (08:53→20:27)
[2019-06-20] MEDS: SACCHAROMYCES BOULARDII 250 MG CAPSULE PO SCH ×2 (08:53→17:55)
[2019-06-20] MEDS: FAMOTIDINE 20 MG TABLET PO SCH ×2 (08:53→20:26)
[2019-06-20] MEDS: guaiFENesin 600 MG TABLET PO SCH ×2 (08:53→20:27)
[2019-06-20] MEDS: diltiaZEM CD 240 MG CAPSULE PO SCH (08:53)
[2019-06-20] MEDS: ASPIRIN EC 81 MG TABLET PO SCH (08:53)
[2019-06-20] MEDS: cefTRIAXone 2 GM in SODIUM CHLORIDE 0.9% MINIBAG 100 ML IV SCH (08:54)
[2019-06-20] MEDS: SODIUM CHLORIDE FLUSH 0.9% 10 ML SYRINGE IVP SCH ×2 (08:54→17:56)
[2019-06-20] MEDS: AZITHROMYCIN INJ 500 MG in SODIUM CHLORIDE 0.9% 250 ML IV SCH (11:12)
--- NOTE | 2019-06-20 13:05 | PROVIDER PROGRESS NOTE ---
Assessment/Plan - Problem List (1) COPD exacerbation Assessment/Plan: She is slightly better today, she admits. She gets benefit from nebulizers, rather than puffers/inhalers, And was using 1 morning nebulizer treatment, followed by inhalers later in the day. She wants to stay on this type of schedule which I agree to and the respiratory therapist, Roberto, heard her comments today, and also agrees that she is benefiting from it. Continue with IV steroids, taper slowly, also continue Mucinex and treat the infection. She is not on oxygen at home. We will try to wean her supplemental oxygen down to room air if possible otherwise she will need an oximetry test and new home oxygen order at the time of discharge. Possible discharge tomorrow. (2) Community acquired pneumonia Assessment/Plan: The sputum sample was good with many white cells and she has both gram-positive cocci and gram-negative rods. Blood cultures are negative today Continue empiric IV Zithro and IV ceftriaxone. Await sputum culture results to focus therapy with oral antibiotics. (3) Insomnia Assessment/Plan: Suspect she gets this from the high dose of steroids. Will give Ambien to try for sleep. She would want this at discharge she stated, if it works (4) Shoulder pain, left Qualifiers: Chronicity: chronic Qualified Code(s): M25.512 - Pain in left shoulder; G89.29 - Other chronic pain Assessment/Plan: No further complaints. There was supposed to be an office visit to Dr. Pisano yesterday regarding this complaint. Continue to manage as an outpatient. (5) Hyponatremia Assessment/Plan: Resolved - Current Meds Current Meds: Current Medications Generic Name Dose Route Start Last Admin Trade Name Freq PRN Reason Stop Dose Admin Aspirin 81 mg 06/19/19 09:00 06/20/19 08:53 Ecotrin PO 81 mg DAILY MATTHEW Administration Diltiazem HCl 240 mg 06/19/19 09:00 06/20/19 08:53 Cardizem Cd PO 240 mg DAILY MATTHEW Administration Diltiazem HCl 30 mg 06/18/19 16:00 06/20/19 12:17 Cardizem PO Not Given Q8HR MATTHEW Enoxaparin Sodium 40 mg 06/19/19 09:00 06/20/19 08:53 Lovenox SUBQ 40 mg DAILY MATTHEW Administration Famotidine 20 mg 06/18/19 21:00 06/20/19 08:53 Pepcid PO 20 mg BID MTATHEW Administration Gabapentin 100 mg 06/18/19 17:00 06/20/19 08:53 Neurontin PO 100 mg QID MATTHEW Administration Guaifenesin 600 mg 06/18/19 21:00 06/20/19 08:53 Mucinex PO 600 mg BID MATTHEW Administration Azithromycin 500 mg/ Sodium 250 mls @ 250 mls/hr 06/19/19 10:00 06/20/19 12:17 Chloride IV Infused DAILY@1000 MATTHEW Infusion Ceftriaxone Sodium 2 gm/ 100 mls @ 200 mls/hr 06/19/19 09:00 06/20/19 09:24 Sodium Chloride IV Infused DAILY MATTHEW Infusion Ibuprofen 600 mg 06/18/19 14:24 06/18/19 15:59 Motrin PO 600 mg Q6HR PRN Administration Pain 1 to 4 Levalbuterol HCl 1.25 mg 06/18/19 17:00 06/20/19 11:59 Xopenex INH 1.25 mg RTQID MATTHEW Administration Lorazepam 1 mg 06/18/19 14:27 06/20/19 05:38 Ativan PO 1 mg TID PRN Administration NEEDED PER PROVIDER ORDERS Methylprednisolone Sodium Succinate 80 mg 06/19/19 22:00 06/20/19 05:30 Solu-Medrol (125mg Vial) IVP 80 mg TID MATTHEW Administration Montelukast Sodium 10 mg 06/18/19 21:00 06/19/19 21:33 Singulair PO 10 mg QPM MATTHEW Administration Saccharomyces Boulardii 250 mg 06/18/19 17:00 06/20/19 08:53 Florastor PO 250 mg BIDWM MATTHEW Administration Sodium Chloride 10 ml 06/18/19 14:24 06/20/19 05:31 Normal Saline Flush 0.9% IVP 10 ml PRN PRN Administration NEEDED PER PROVIDER ORDERS Sodium Chloride 10 ml 06/18/19 17:00 06/20/19 08:54 Normal Saline Flush 0.9% IVP 10 ml 0100,0900,1700 MATTHEW Administration Throat Lozenges 1 lozenge 06/18/19 22:03 06/20/19 05:31 Cepacol MM 1 lozenge Q2HR PRN Administration Throat pain - Lab Result Fish Bone Diagrams: 06/19/19 12:38 06/20/19 04:20 - Additional Planning My Orders: My Active Orders 06/19/19 18:00 CUL, RESPIRATORY [RM] Urgent 06/19/19 22:00 methylPREDNISolone SUCCINATE [SOLU-Medrol (125MG VIAL)] 80 mg IVP TID 06/20/19 21:00 Zolpidem [Ambien] 5 mg PO QPM Subjective - Subjective Patient Reports: Feeling Better, Other (Only slept 2 hours last night, has had insomnia symptoms that she struggles with) Objective Vital Signs: Vital Signs - 24 hr 06/19/19 06/19/19 06/19/19 13:32 13:41 16:11 Temperature 36.8 C 36.7 C Heart Rate 84 Heart Rate [ 95 99 Brachial] Respiratory 20 18 20 Rate Blood Pressure Blood Pressure 136/80 H 144/94 H [Right Brachial artery] O2 Saturation 94 88 L 06/19/19 06/19/19 06/19/19 19:26 20:00 21:28 Temperature 36.8 C Heart Rate 86 Heart Rate [ 101 H Brachial] Respiratory 20 20 Rate Blood Pressure 147/87 H Blood Pressure 147/87 H [Right Brachial artery] O2 Saturation 88 L 06/19/19 06/20/19 06/20/19 23:30 03:53 05:30 Temperature 36.6 C 36.7 C Heart Rate Heart Rate [ 92 99 Brachial] Respiratory 20 20 Rate Blood Pressure 146/84 H Blood Pressure 125/93 H 146/84 H [Right Brachial artery] O2 Saturation 96 91 L 06/20/19 06/20/19 06/20/19 07:26 08:00 11:53 Temperature 37.0 C Heart Rate 80 Heart Rate [ 97 83 Brachial] Respiratory 18 16 22 Rate Blood Pressure Blood Pressure 116/79 140/97 H [Right Brachial artery] O2 Saturation 90 L 93 06/20/19 12:00 Temperature Heart Rate 84 Heart Rate [ Brachial] Respiratory 18 Rate Blood Pressure Blood Pressure [Right Brachial artery] O2 Saturation Oxygen O2 Source Nasal cannula Oxygen Flow Rate 6 I&O (Last 24 Hrs): Intake and Output Totals x24h 06/18/19 06/19/19 06/20/19 23:59 23:59 23:59 Intake Total 2410 1200 1390 Balance 2410 1200 1390 General: Alert, Oriented x3 HEENT: Mucous membr. moist/pink, Other (Very wrinkled and leathery skin of her face) Neck: No JVD Neuro: Alert, Non Focal Cardiovascular: Regular rate, No murmurs Respiratory: Other (Prolonged expuratory phase, no wheezes or rhonchi) Abdomen: Soft Extremities: No edema - Results Results: Laboratory Results WBC 3.6 x10^3/uL (4.8-10.8) L 06/19/19 12:38 RBC 4.45 10^6/uL (4.20-5.40) 06/19/19 12:38 Hgb 13.5 g/dL (12.0-16.0) 06/19/19 12:38 Hct 42.8 % (37.0-47.0) 06/19/19 12:38 MCV 96.2 fL (81.0-99.0) 06/19/19 12:38 MCH 30.3 pg (27.0-31.0) 06/19/19 12:38 MCHC 31.5 g/dL (32.0-36.0) L 06/19/19 12:38 RDW 12.9 % (12.0-15.0) 06/19/19 12:38 Plt Count 270 10^3/uL (130-450) 06/19/19 12:38 MPV 9.7 fL (7.9-10.8) 06/19/19 12:38 Neut # (Auto) 2.6 10^3/uL (1.5-6.6) 06/19/19 12:38 Lymph # (Auto) 0.5 10^3/uL (1.5-3.5) L 06/19/19 12:38 [place] # (Auto) 0.3 10^3/uL (0.0-1.0) 06/19/19 12:38 Eos # (Auto) 0.0 10^3/uL (0.0-0.7) 06/19/19 12:38 Baso # (Auto) 0.0 10^3/uL (0.0-0.1) 06/19/19 12:38 Absolute Nucleated RBC 0.00 x10^3/uL 06/19/19 12:38 Nucleated RBC % 0.0 /100WBC 06/19/19 12:38 Sodium 138 mmol/L (135-145) 06/20/19 04:20 Potassium 4.1 mmol/L (3.5-5.0) 06/20/19 04:20 Chloride 100 mmol/L (101-111) L 06/20/19 04:20 Carbon Dioxide 29 mmol/L (21-32) 06/20/19 04:20 Anion Gap 9.0 (6-13) 06/20/19 04:20 BUN 18 mg/dL (6-20) 06/20/19 04:20 Creatinine 0.7 mg/dL (0.4-1.0) 06/20/19 04:20 Estimated GFR (MDRD) 84 (>89) L 06/20/19 04:20 Glucose 148 mg/dL (70-100) H 06/20/19 04:20 Lactic Acid 0.3 mmol/L (0.5-2.2) L 06/18/19 10:43 Calcium 8.9 mg/dL (8.5-10.3) 06/20/19 04:20 Total Bilirubin 1.5 mg/dL (0.2-1.0) H 06/18/19 10:43 AST 16 IU/L (10-42) 06/18/19 10:43 ALT 10 IU/L (10-60) 06/18/19 10:43 Alkaline Phosphatase 93 IU/L (42-121) 06/18/19 10:43 B-Natriuretic Peptide 100 pg/mL (5-100) 06/18/19 10:43 Total Protein 7.5 g/dL (6.7-8.2) 06/18/19 10:43 Albumin 3.9 g/dL (3.2-5.5) 06/18/19 10:43 Globulin 3.6 g/dL (2.1-4.2) 06/18/19 10:43 Albumin/Globulin Ratio 1.1 (1.0-2.2) 06/18/19 10:43 Urine Color YELLOW 06/18/19 13:25 Urine Clarity CLEAR (CLEAR) 06/18/19 13:25 Urine pH 6.0 PH (5.0-7.5) 06/18/19 13:25 Ur Specific [place] 1.020 (1.002-1.030) 06/18/19 13:25 Urine Protein TRACE mg/dL (NEGATIVE) 06/18/19 13:25 Urine Glucose (UA) NEGATIVE mg/dL (NEGATIVE) 06/18/19 13:25 Urine Ketones 40 mg/dL (NEGATIVE) H 06/18/19 13:25 Urine Occult Blood NEGATIVE (NEGATIVE) 06/18/19 13:25 Urine Nitrite NEGATIVE (NEGATIVE) 06/18/19 13:25 Urine Bilirubin NEGATIVE (NEGATIVE) 06/18/19 13:25 Urine Urobilinogen 0.2 (NORMAL) E.U./dL (NORMAL) 06/18/19 13:25 Ur Leukocyte Esterase NEGATIVE (NEGATIVE) 06/18/19 13:25 Urine RBC None Seen /HPF (0-5) 06/18/19 13:25 Urine WBC 0-3 /HPF (0-5) 06/18/19 13:25 Ur Squamous Epith Cells FEW Squamous (<= Few) 06/18/19 13:25 Urine Bacteria None Seen /HPF (None Seen) 06/18/19 13:25 Urine Culture Comments NOT INDICATED 06/18/19 13:25 Influenza A (Rapid) Negative (Negative) 06/18/19 11:25 Influenza B (Rapid) Negative (Negative) 06/18/19 11:25 - Procedures Procedures: Procedures ASSIST W CARDIAC OUTPUT W PULS COMPRESSION, CONTINUOUS (07/13/15) ASSISTANCE WITH RESPIRATORY VENTILATION, 24-96 HRS, CPAP (07/13/15) DRAINAGE OF R PLEURAL CAV WITH DRAIN DEV, PERC APPROACH (07/13/15) EXCISION OF LIVER, OPEN APPROACH, DIAGNOSTIC (10/03/17) INSERTION OF ENDOTRACHEAL AIRWAY INTO TRACHEA, VIA OPENING (07/13/15) INSERTION OF INFUSION DEV INTO SUP VENA CAVA, PERC APPROACH (07/13/15) INSPECTION OF UPPER INTESTINAL TRACT, ENDO (01/21/18) INTRODUCTION OF NUTRITIONAL INTO CENTRAL VEIN, PERC APPROACH (07/13/15) MONITORING OF VENOUS PRESSURE, CENTRAL, PERC APPROACH (07/13/15) REPAIR LEFT INGUINAL REGION, OPEN APPROACH (10/03/17) RESECTION OF APPENDIX, OPEN APPROACH (07/13/15) RESECTION OF BILATERAL FALLOPIAN TUBES, OPEN APPROACH (10/03/17) RESECTION OF BILATERAL OVARIES, OPEN APPROACH (10/03/17) RESECTION OF UTERUS, OPEN APPROACH (10/03/17) RESPIRATORY VENTILATION, 24-96 CONSECUTIVE HOURS (07/13/15) TRANSFUSE NONAUT RED BLOOD CELLS IN PERIPH VEIN, PERC (01/21/18)
[2019-06-20] MEDS: MONTELUKAST 10 MG TABLET PO SCH (20:26)
[2019-06-20] MEDS: SENNA 8.6 MG TABLET PO SCH (20:27)
[2019-06-20] MEDS: ZOLPIDEM 5 MG TABLET PO SCH (21:57)
[2019-06-21] MEDS: SODIUM CHLORIDE FLUSH 0.9% 10 ML SYRINGE IVP SCH ×4 (03:28→23:48)
[2019-06-21] MEDS: LEVALBUTEROL 1.25 MG/3 ML NEB INH SCH ×4 (07:53→19:28)
[2019-06-21] MEDS: FAMOTIDINE 20 MG TABLET PO SCH ×2 (08:19→20:18)
[2019-06-21] MEDS: DOCUSATE SODIUM 250 MG CAPSULE PO SCH (08:19)
[2019-06-21] MEDS: GABAPENTIN 100 MG CAPSULE PO SCH ×4 (08:19→20:18)
[2019-06-21] MEDS: SENNA 8.6 MG TABLET PO SCH (08:19)
[2019-06-21] MEDS: ASPIRIN EC 81 MG TABLET PO SCH (08:20)
[2019-06-21] MEDS: polyethylene glycoL 3350 17 GM PACKET PO SCH (08:20)
[2019-06-21] MEDS: SACCHAROMYCES BOULARDII 250 MG CAPSULE PO SCH ×2 (08:20→17:39)
[2019-06-21] MEDS: guaiFENesin 600 MG TABLET PO SCH ×2 (08:20→20:18)
[2019-06-21] MEDS: diltiaZEM CD 240 MG CAPSULE PO SCH (08:20)
[2019-06-21] MEDS: LORazepam 1 MG TABLET PO PRN ×3 (08:20→23:56)
[2019-06-21] MEDS: methylPREDNISolone SUCCINATE 40 MG/ML VIAL IVP SCH ×3 (08:29→22:02)
[2019-06-21] MEDS: SODIUM CHLORIDE FLUSH 0.9% 10 ML SYRINGE IVP PRN ×2 (08:29→13:49)
[2019-06-21] MEDS: ENOXAPARIN 40 MG/0.4 ML SYRINGE SUBQ SCH (08:29)
[2019-06-21] MEDS: cefTRIAXone 2 GM in SODIUM CHLORIDE 0.9% MINIBAG 100 ML IV SCH (09:07)
[2019-06-21] MEDS: IBUPROFEN 600 MG TABLET PO PRN (09:10)
[2019-06-21] MEDS: AZITHROMYCIN INJ 500 MG in SODIUM CHLORIDE 0.9% 250 ML IV SCH (10:12)
--- NOTE | 2019-06-21 12:28 | PROVIDER PROGRESS NOTE ---
Assessment/Plan - Problem List (1) COPD exacerbation Assessment/Plan: She is still needing supplemental oxygen, otherwise dropped to 84% on room air. She does not have home oxygen. Continue with nebs which give her the most benefit she states. Start to taper down the steroids from 125 to 80 mg 3 times daily. Continue with Mucinex, Singulair, empiric antibiotics. Possible discharge tomorrow. She may need discharge with home oxygen this time and would need an oximetry exercise test. She told her nurse that she would rather be discharged not on oxygen. He describes how she is happy that she quit smoking 3 years ago. (2) Community acquired pneumonia Assessment/Plan: Sputum only grew normal oral will. Continue with empiric antibiotics. Probable transition to oral antibiotics tomorrow and finish a 7-day course (3) Insomnia Assessment/Plan: She had insomnia at home for the previous 48 hours. It is been worse here since she is on high-dose steroids. Ambien started last night, and it did help her get sleep, although it made her confused when she awoke to urinate at 0230. She would like to have Ambien again for sleep. (4) Shoulder pain, left Qualifiers: Chronicity: chronic Qualified Code(s): M25.512 - Pain in left shoulder; G89.29 - Other chronic pain Assessment/Plan: She reports this is significantly improved and believes it is from the high-dose steroids that she is getting. She missed an appointment to her new PCP, Dr. Pisano, because it was the day of this admission, and it was supposed to be on the topic of this shoulder pain (5) Hyponatremia Assessment/Plan: Resolved - Current Meds Current Meds: Current Medications Generic Name Dose Route Start Last Admin Trade Name Evelin PRN Reason Stop Dose Admin Aspirin 81 mg 06/19/19 09:00 06/21/19 08:20 Ecotrin PO 81 mg DAILY MATTHEW Administration Diltiazem HCl 240 mg 06/19/19 09:00 06/21/19 08:20 Cardizem Cd PO 240 mg DAILY MATTHEW Administration Docusate Sodium 250 - 500 mg 06/21/19 09:00 06/21/19 08:19 Colace 250mg Capsule PO 250 mg DAILY MATTHEW Administration Enoxaparin Sodium 40 mg 06/19/19 09:00 06/21/19 08:29 Lovenox SUBQ 40 mg DAILY MATTHEW Administration Famotidine 20 mg 06/18/19 21:00 06/21/19 08:19 Pepcid PO 20 mg BID MATTHEW Administration Gabapentin 100 mg 06/18/19 17:00 06/21/19 08:19 Neurontin PO 100 mg QID MATTHEW Administration Guaifenesin 600 mg 06/18/19 21:00 06/21/19 08:20 Mucinex PO 600 mg BID MATTHEW Administration Azithromycin 500 mg/ Sodium 250 mls @ 250 mls/hr 06/19/19 10:00 06/20/19 12:17 Chloride IV Infused DAILY@1000 MATTHEW Infusion Ceftriaxone Sodium 2 gm/ 100 mls @ 200 mls/hr 06/19/19 09:00 06/21/19 09:37 Sodium Chloride IV Infused DAILY MATTHEW Infusion Ibuprofen 600 mg 06/18/19 14:24 06/21/19 09:10 Motrin PO 600 mg Q6HR PRN Administration Pain 1 to 4 Levalbuterol HCl 1.25 mg 06/18/19 17:00 06/21/19 11:16 Xopenex INH 1.25 mg RTQID MATTHEW Administration Lorazepam 1 mg 06/18/19 14:27 06/21/19 08:20 Ativan PO 1 mg TID PRN Administration NEEDED PER PROVIDER ORDERS Methylprednisolone 40 mg 06/21/19 08:00 06/21/19 08:29 Solu-Medrol (40mg Vial) IVP 40 mg TID MATTHEW Administration Montelukast Sodium 10 mg 06/18/19 21:00 06/20/19 20:26 Singulair PO 10 mg QPM MATTHEW Administration Polyethylene Glycol 17 gm 06/21/19 09:00 06/21/19 08:20 Miralax PO Not Given DAILY MATTHEW Saccharomyces Boulardii 250 mg 06/18/19 17:00 06/21/19 08:20 Florastor PO 250 mg BIDWM MATTHEW Administration Senna 8.6 - 17.2 mg 06/20/19 16:08 06/21/19 08:19 Senokot PO 8.6 mg DAILY MATTHEW Administration Sodium Chloride 10 ml 06/18/19 14:24 06/21/19 08:29 Normal Saline Flush 0.9% IVP 10 ml PRN PRN Administration NEEDED PER PROVIDER ORDERS Sodium Chloride 10 ml 06/18/19 17:00 06/21/19 08:29 Normal Saline Flush 0.9% IVP 10 ml 0100,0900,1700 MATTHEW Administration Throat Lozenges 1 lozenge 06/18/19 22:03 06/20/19 05:31 Cepacol MM 1 lozenge Q2HR PRN Administration Throat pain Zolpidem Tartrate 5 mg 06/20/19 21:00 06/20/19 21:57 Ambien PO 5 mg QPM MATTHEW Administration - Lab Result Fish Bone Diagrams: 06/19/19 12:38 06/20/19 04:20 - Additional Planning My Orders: My Active Orders 06/20/19 16:08 Senna [Senokot] 8.6 - 17.2 mg PO DAILY 06/20/19 21:00 Zolpidem [Ambien] 5 mg PO QPM 06/21/19 08:00 methylPREDNISolone SUCCINATE [SOLU-Medrol (40MG VIAL)] 40 mg IVP TID 06/21/19 09:00 Docusate Sodium 250Mg Capsule [Colace 250Mg Capsule] 250 - 500 mg PO DAILY polyethylene glycoL 3350 [Miralax] 17 gm PO DAILY 06/21/19 12:25 Telemetry-Discontinue [RC] .ONCE Subjective - Subjective Patient Reports: Feeling Better, Shortness of Breath (with activity) Nursing Reports: Other (She was confused when awoke at 0230 to urinate, likely from new Ambien) Objective Vital Signs: Vital Signs - 24 hr 06/20/19 06/20/19 06/20/19 15:17 16:01 16:05 Temperature 36.8 C 37 C Heart Rate 78 78 Heart Rate [ 85 Brachial] Respiratory 18 18 16 Rate Blood Pressure 128/85 H [Right Brachial artery] O2 Saturation 88 L 93 06/20/19 06/20/19 06/21/19 19:45 21:00 01:00 Temperature 36.9 C 36.4 C L Heart Rate 92 Heart Rate [ 94 82 Brachial] Respiratory 18 18 22 Rate Blood Pressure 151/90 H 160/91 H [Right Brachial artery] O2 Saturation 89 L 96 06/21/19 06/21/19 06/21/19 06:17 08:07 08:13 Temperature 36.8 C Heart Rate 90 Heart Rate [ 82 Brachial] Respiratory 20 18 18 Rate Blood Pressure 151/98 H [Right Brachial artery] O2 Saturation 91 L 89 L 06/21/19 06/21/19 06/21/19 08:37 11:25 12:10 Temperature 36.7 C Heart Rate 87 Heart Rate [ 81 Brachial] Respiratory 18 18 18 Rate Blood Pressure 168/96 H [Right Brachial artery] O2 Saturation 89 L 78 L 06/21/19 12:11 Temperature Heart Rate Heart Rate [ Brachial] Respiratory 18 Rate Blood Pressure [Right Brachial artery] O2 Saturation 90 L Oxygen O2 Source Nasal cannula Oxygen Flow Rate 6 I&O (Last 24 Hrs): Intake and Output Totals x24h 06/19/19 06/20/19 06/21/19 23:59 23:59 23:59 Intake Total 1200 1989 700 Balance 1200 1989 General: Alert, Oriented x3 HEENT: Mucous membr. moist/pink, Other (Very wrinkled and leathery skin of face) Neck: Supple, No JVD Neuro: Alert Cardiovascular: Regular rate Respiratory: Other (Diffusely poor air entry and prolonged expiratory phase) Abdomen: Normal bowel sounds Extremities: No edema, Other (Cyanosis) - Results Results: Laboratory Results WBC 3.6 x10^3/uL (4.8-10.8) L 06/19/19 12:38 RBC 4.45 10^6/uL (4.20-5.40) 06/19/19 12:38 Hgb 13.5 g/dL (12.0-16.0) 06/19/19 12:38 Hct 42.8 % (37.0-47.0) 06/19/19 12:38 MCV 96.2 fL (81.0-99.0) 06/19/19 12:38 MCH 30.3 pg (27.0-31.0) 06/19/19 12:38 MCHC 31.5 g/dL (32.0-36.0) L 06/19/19 12:38 RDW 12.9 % (12.0-15.0) 06/19/19 12:38 Plt Count 270 10^3/uL (130-450) 06/19/19 12:38 MPV 9.7 fL (7.9-10.8) 06/19/19 12:38 Neut # (Auto) 2.6 10^3/uL (1.5-6.6) 06/19/19 12:38 Lymph # (Auto) 0.5 10^3/uL (1.5-3.5) L 06/19/19 12:38 [place] # (Auto) 0.3 10^3/uL (0.0-1.0) 06/19/19 12:38 Eos # (Auto) 0.0 10^3/uL (0.0-0.7) 06/19/19 12:38 Baso # (Auto) 0.0 10^3/uL (0.0-0.1) 06/19/19 12:38 Absolute Nucleated RBC 0.00 x10^3/uL 06/19/19 12:38 Nucleated RBC % 0.0 /100WBC 06/19/19 12:38 Sodium 138 mmol/L (135-145) 06/20/19 04:20 Potassium 4.1 mmol/L (3.5-5.0) 06/20/19 04:20 Chloride 100 mmol/L (101-111) L 06/20/19 04:20 Carbon Dioxide 29 mmol/L (21-32) 06/20/19 04:20 Anion Gap 9.0 (6-13) 06/20/19 04:20 BUN 18 mg/dL (6-20) 06/20/19 04:20 Creatinine 0.7 mg/dL (0.4-1.0) 06/20/19 04:20 Estimated GFR (MDRD) 84 (>89) L 06/20/19 04:20 Glucose 148 mg/dL (70-100) H 06/20/19 04:20 Lactic Acid 0.3 mmol/L (0.5-2.2) L 06/18/19 10:43 Calcium 8.9 mg/dL (8.5-10.3) 06/20/19 04:20 Total Bilirubin 1.5 mg/dL (0.2-1.0) H 06/18/19 10:43 AST 16 IU/L (10-42) 06/18/19 10:43 ALT 10 IU/L (10-60) 06/18/19 10:43 Alkaline Phosphatase 93 IU/L (42-121) 06/18/19 10:43 B-Natriuretic Peptide 100 pg/mL (5-100) 06/18/19 10:43 Total Protein 7.5 g/dL (6.7-8.2) 06/18/19 10:43 Albumin 3.9 g/dL (3.2-5.5) 06/18/19 10:43 Globulin 3.6 g/dL (2.1-4.2) 06/18/19 10:43 Albumin/Globulin Ratio 1.1 (1.0-2.2) 06/18/19 10:43 Urine Color YELLOW 06/18/19 13:25 Urine Clarity CLEAR (CLEAR) 06/18/19 13:25 Urine pH 6.0 PH (5.0-7.5) 06/18/19 13:25 Ur Specific [place] 1.020 (1.002-1.030) 06/18/19 13:25 Urine Protein TRACE mg/dL (NEGATIVE) 06/18/19 13:25 Urine Glucose (UA) NEGATIVE mg/dL (NEGATIVE) 06/18/19 13:25 Urine Ketones 40 mg/dL (NEGATIVE) H 06/18/19 13:25 Urine Occult Blood NEGATIVE (NEGATIVE) 06/18/19 13:25 Urine Nitrite NEGATIVE (NEGATIVE) 06/18/19 13:25 Urine Bilirubin NEGATIVE (NEGATIVE) 06/18/19 13:25 Urine Urobilinogen 0.2 (NORMAL) E.U./dL (NORMAL) 06/18/19 13:25 Ur Leukocyte Esterase NEGATIVE (NEGATIVE) 06/18/19 13:25 Urine RBC None Seen /HPF (0-5) 06/18/19 13:25 Urine WBC 0-3 /HPF (0-5) 06/18/19 13:25 Ur Squamous Epith Cells FEW Squamous (<= Few) 06/18/19 13:25 Urine Bacteria None Seen /HPF (None Seen) 06/18/19 13:25 Urine Culture Comments NOT INDICATED 06/18/19 13:25 Influenza A (Rapid) Negative (Negative) 06/18/19 11:25 Influenza B (Rapid) Negative (Negative) 06/18/19 11:25 - Procedures Procedures: Procedures ASSIST W CARDIAC OUTPUT W PULS COMPRESSION, CONTINUOUS (07/13/15) ASSISTANCE WITH RESPIRATORY VENTILATION, 24-96 HRS, CPAP (07/13/15) DRAINAGE OF R PLEURAL CAV WITH DRAIN DEV, PERC APPROACH (07/13/15) EXCISION OF LIVER, OPEN APPROACH, DIAGNOSTIC (10/03/17) INSERTION OF ENDOTRACHEAL AIRWAY INTO TRACHEA, VIA OPENING (07/13/15) INSERTION OF INFUSION DEV INTO SUP VENA CAVA, PERC APPROACH (07/13/15) INSPECTION OF UPPER INTESTINAL TRACT, ENDO (01/21/18) INTRODUCTION OF NUTRITIONAL INTO CENTRAL VEIN, PERC APPROACH (07/13/15) MONITORING OF VENOUS PRESSURE, CENTRAL, PERC APPROACH (07/13/15) REPAIR LEFT INGUINAL REGION, OPEN APPROACH (10/03/17) RESECTION OF APPENDIX, OPEN APPROACH (07/13/15) RESECTION OF BILATERAL FALLOPIAN TUBES, OPEN APPROACH (10/03/17) RESECTION OF BILATERAL OVARIES, OPEN APPROACH (10/03/17) RESECTION OF UTERUS, OPEN APPROACH (10/03/17) RESPIRATORY VENTILATION, 24-96 CONSECUTIVE HOURS (07/13/15) TRANSFUSE NONAUT RED BLOOD CELLS IN PERIPH VEIN, PERC (01/21/18)
[2019-06-21] MEDS: MONTELUKAST 10 MG TABLET PO SCH (20:18)
[2019-06-21] MEDS: ZOLPIDEM 5 MG TABLET PO SCH (22:02)
[2019-06-22] MEDS: BENZOCAINE/MENTHOL LOZENGE MM PRN (00:05)
[2019-06-22] MEDS: methylPREDNISolone SUCCINATE 40 MG/ML VIAL IVP SCH (06:54)
[2019-06-22] MEDS: SODIUM CHLORIDE FLUSH 0.9% 10 ML SYRINGE IVP PRN (06:54)
[2019-06-22] MEDS: LORazepam 1 MG TABLET PO PRN (06:57)
[2019-06-22] MEDS: LEVALBUTEROL 1.25 MG/3 ML NEB INH SCH ×2 (07:15→11:16)
[2019-06-22 08:17] VITALS: BP 172/110
[2019-06-22] MEDS: DOCUSATE SODIUM 250 MG CAPSULE PO SCH (08:33)
[2019-06-22] MEDS: diltiaZEM CD 240 MG CAPSULE PO SCH (08:33)
[2019-06-22] MEDS: cefTRIAXone 2 GM in SODIUM CHLORIDE 0.9% MINIBAG 100 ML IV SCH (08:33)
[2019-06-22] MEDS: FAMOTIDINE 20 MG TABLET PO SCH (08:33)
[2019-06-22] MEDS: SACCHAROMYCES BOULARDII 250 MG CAPSULE PO SCH (08:34)
[2019-06-22] MEDS: GABAPENTIN 100 MG CAPSULE PO SCH (08:34)
[2019-06-22] MEDS: ASPIRIN EC 81 MG TABLET PO SCH (08:34)
[2019-06-22] MEDS: polyethylene glycoL 3350 17 GM PACKET PO SCH (08:34)
[2019-06-22] MEDS: SODIUM CHLORIDE FLUSH 0.9% 10 ML SYRINGE IVP SCH (08:37)
[2019-06-22] MEDS: ENOXAPARIN 40 MG/0.4 ML SYRINGE SUBQ SCH (08:37)
[2019-06-22] MEDS: guaiFENesin 600 MG TABLET PO SCH (08:37)
[2019-06-22] MEDS: SENNA 8.6 MG TABLET PO SCH (08:37)
[2019-06-22] MEDS: AZITHROMYCIN INJ 500 MG in SODIUM CHLORIDE 0.9% 250 ML IV SCH (10:00)
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
--- NOTE | 2019-06-22 10:28 | Discharge Plan ---
Discharge Plan Problem Reviewed?: Yes Disposition: Home, Self Care Condition: Stable Prescriptions: levoFLOXacin [Levaquin] 750 mg PO QDBREAKFAST #9 tablet Methylprednisolone [Medrol Dose Pack] 1 each PO .PACKAGEINSTRUCTIONS 6 Days #1 each Montelukast [Singulair] 10 mg PO QPM #30 tablet Zolpidem [Ambien] 5 mg PO QPM PRN #20 tablet PRN Reason: Insomnia Diet: Regular Activity Restrictions: Activity as Tolerated Shower Restrictions: No Driving Restrictions: No Instruction Topics: Gabapentin capsules or tablets, Dextromethorphan Guaifenesi n capsules and ER tablets, Montelukast oral tablets, Famotidine tablets or gelcaps Health Concerns: You have a history of COPD but have not required home O2 yet. Your are an ex- smoker. You had 3 days of cough, shortness of breath. You came to the emergency room and we found you to have a very low oxygen level with bilateral lung pneumonia. Plan of Treatment: 1. You received IV antibiotics and steroids with nebulizers. 2. Supplemental oxygen was given. Although you may qualify for at least 1 liter of oxygen while walking, you are very firm in stating you do no want oxygen. 3. Blood and sputum cultures were negative. Care Goals: 1. To complete antibiotic therapy. You will need 3 more days. As such you will be sent home on Levaquin once a day. 2. Please follow-up with your primary care provider, Dr. Pisano in the next 1 to 2 weeks. Assessment: Patient understands care goals and states that she will follow through No Smoking: If you smoke, Please STOP! Call for help. Follow-up with: Mark Reinoso MD [Primary Care Provider] -
--- NOTE | 2019-06-22 18:37 | DISCHARGE SUMMARY ---
Discharge Summary Admit Date: 06/18/19 Discharge Date: 06/22/19 Discharging Provider: Leonarda Glasgow MD Primary Care Provider: Mark Reinoso MD Code Status: Do Not Attempt Resuscitation Condition at Discharge: Stable Discharge Disposition: 01 Home, Self Care - DIAGNOSES Discharge Diagnoses with Status of Each Condition: 1. COPD exacerbation 2. Community-acquired pneumonia 3. Paroxysmal atrial fibrillation 4. Hyponatremia 5. Chronic left shoulder pain 6. Chronic insomnia - HPI History of Present Illness: She is a 63-year-old white female with a history of paroxysmal atrial fibrillation, chronic anemia, hypertension, COPD who is an ex-smoker, and chronic epigastric pain. She has had chronic anemia since 2014, and then with presented as a ruptured appendix in June 2015. In the postoperative setting had to be cardioverted with adenosine and then synchronized electricity for her A. fib. Then she had pulseless electrical activity and CPR was started. Tension pneumothorax occurred after CPR and she required a chest tube. She was transferred to [place]. She was then admitted again April 2017 with GI bleed and syncope. She also had syncope from anemia July 2017. In September 2017 she had a incarcerated left inguinal hernia and she was emergently treated for that. She returned late in September for paroxysmal A. fib and another cardioversion. And then in January 2018 black stools in addition to the anemia. She has had chronic abdominal pain in the epigastrium since her appendectomy. EGD -April 2017. She is also had a hysterectomy for invasive squamous cell cancer [place] of the external loss to the lower uterine segment when she had her incarcerated left inguinal hernia September 2017. She regards these problems is her main problems and that her COPD is "stable". Nevertheless she presented with a 3-day course of worsening shortness of breath, fatigue, cough, and minimal sputum production and malaise. She came to the emergency room was found to be hypoxic that improved with nebulizers. Chest x- ray white cell count was normal at 5.6. Mild hyponatremia to 134. Lactic acid normal at 0.3. BNP 100. Positive for bilateral pneumonia. - CONSULTS | PROCEDURES Procedures: 1. Chest x-ray with changes of COPD, mild cardiomegaly, patchy bibasilar opacities that are new when compared to February 13, 2018 chest x-ray. Thoracic dextroscoliosis. 2. Blood cultures negative after 2 days 3. Respiratory culture with normal respiratory will, 2+ growth - HOSPITAL COURSE Hospital Course: The patient was placed on supplemental oxygen, given nebulizers, IV steroids, Mucinex, Singulair and empiric antibiotics. She slowly, slowly improved but still had significant dyspnea when she tried to do simple activities such as get out of bed to go to the bathroom. On the day of discharge, the patient still had hypoxia when she initially gets out of bed. She would drop her O2 sats into the 70s. After a few minutes of walking her O2 sat would go up to 87%. And as she continued to walk she increased to 88-89%. She was adamant that she would not use oxygen even if we ordered it. Sputum culture grew out only normal will. Empiric antibiotics were completed and she was transitioned to oral antibiotics to complete a 7-day course total. She will take 3 more days. Hyponatremia resolved. She started at 134 and at discharge was 138. A new medication was that of Ambien. She was adamant that she needed something to sleep with. At times she was belligerent because of this. I did explain to her that Ambien is a benzodiazepine and can be addictive. If she uses it every single night to get to sleep it will stop working on her. So I have asked her to do a drug holiday during the week so that she is not on it every single night. Because of her refusal to use oxygen, I sat down and had advanced care planning conversation with her to establish goals of care. That is dictated under separate note. She is still felt to have significant COPD as manifested by diminished cardiovascular endurance. Left shoulder pain will be addressed in the outpatient setting. During her stay she was treated with nonsteroidals, and Tylenol. There is no left shoulder film done. She said that this was a chronic complaint. She was due to see her primary care provider to discuss this. At discharge the patient's temperature was 36.8 pulse was 67 blood pressure 172/110. Respirations 14 and she is 92% on room air. She is a 5 foot 8 inch female who looks much older than her stated age and weighs 66.5 kg. Voice is nasal, and when she laughs she induces a coughing spasm with wheezing. She has wheezing with laughing and talking but at rest and when quiet, she has prolonged and exhalation phase but no wheezing. She does have occasional fine crackles that clear with cough. She does not have use of accessory muscles. A slow regular rate and rhythm. And abdomen is benign and no pedal edema. She is asked to follow-up with her primary care provider, Dr. Reinoso. To complete antibiotics. She declines to use oxygen at home. Greater than 30 minutes was spent coordinating discharge. - ALLERGIES Allergies/Adverse Reactions: Allergies Allergy/AdvReac Type Severity Reaction Status Date / Time No Known Drug Allergies Allergy Verified 06/18/19 10:20 - MEDICATIONS Home Medications: Ambulatory Orders Medication Instructions Recorded Confirmed Ipratropium/Albuterol [Combivent 1 puffs INH QID 03/18/17 06/18/19 Respimat] Albuterol 2.5 mg INH Q4H PRN 04/18/17 06/18/19 Ipratropium/Albuterol [Duoneb] 3 ml INH BID 08/09/17 06/18/19 Fluticasone/Salmeterol [Advair 1 inh INH BID 06/18/19 06/18/19 250-50 Diskus] Gabapentin 100 mg PO QID 06/18/19 06/18/19 LORazepam [Lorazepam] 1 mg PO TID PRN 06/18/19 06/18/19 diltiaZEM CD [Cardizem Cd] 240 mg PO DAILY 06/18/19 06/18/19 Famotidine [Pepcid] 20 mg PO BID tablet 06/22/19 Methylprednisolone [Medrol Dose 1 each PO .PACKAGEINSTRUCTIONS 6 06/22/19 Pack] Days #1 each Montelukast [Singulair] 10 mg PO QPM #30 tablet 06/22/19 Zolpidem [Ambien] 5 mg PO QPM PRN #20 tablet 06/22/19 levoFLOXacin [Levaquin] 750 mg PO QDBREAKFAST #9 tablet 06/22/19 - LABS Result Diagrams: 06/19/19 12:38 06/20/19 04:20
== END 2019-06-22 12:20 | disposition home or self-care (01) | DRG 190 ==
LOC: ED 10:10 → MS3 14:17 → MS2 06-21 20:25
PROVIDERS: ADMIT Internal Medicine; ATTEND Specialist
DX: J44.0 Chronic obstructive pulmonary disease with (acute) lower respiratory infection (principal); J18.9 Pneumonia, unspecified organism; E87.1 Hypo-osmolality and hyponatremia; J44.1 Chronic obstructive pulmonary disease with (acute) exacerbation; I48.91 Unspecified atrial fibrillation; I48.0 Paroxysmal atrial fibrillation; R09.02 Hypoxemia; I10 Essential (primary) hypertension; G89.29 Other chronic pain; Z90.710 Acquired absence of both cervix and uterus; M25.512 Pain in left shoulder; R10.13 Epigastric pain; M41.9 Scoliosis, unspecified; F51.04 Psychophysiologic insomnia; D64.9 Anemia, unspecified; Z66 Do not resuscitate; Z79.51 Long term (current) use of inhaled steroids; Z87.891 Personal history of nicotine dependence; Z85.42 Personal history of malignant neoplasm of other parts of uterus; Z91.19 Patient's noncompliance with other medical treatment and regimen
CPT/HCPCS: 36415; 71045; 80048; 80053; 81001; 83605; 83880; 85025; 87040; 87070; 87205; 87275; 87276; 93005; 94640; 96365; 96367; 96375; 99284; 99285; A9270; J0131; J1650; J8499; 87086

== ENCOUNTER 2019-10-23 11:25 | Outpatient (CLI) | payer MEDICARE | END 2019-10-23 11:26 | disposition critical access hospital (66) | LOC: EMS 11:25 | PROVIDERS: ATTEND Surgery | DX: R06.02 Shortness of breath (principal); R05 Cough; R53.1 Weakness | CPT/HCPCS: A0425; A0427 ==

== ENCOUNTER 2019-10-23 11:56 | Inpatient (IN) | payer MEDICARE ==
[2019-10-23] MEDS ORDERED: DILTIAZEM 50 MG/10 ML VIAL IVP ONE ×3 (12:03→15:30)
[2019-10-23 12:52] LABS: BASOPHILS % (AUTO) 0.2 %; EOSINOPHILS % (AUTO) 0.2 %; HGB - HEMOGLOBIN 14.9 g/dL (12.0-16.0); LYMPHOCYTES # (AUTO) 1.9 10^3/uL (1.5-3.5); LYMPHOCYTES % (AUTO) 22.6 %; MEAN CORPUSCULAR HEMOGLOBIN 27.7 pg (27.0-31.0); MEAN CORPUSCULAR VOLUME 92.4 fL (81.0-99.0); MEAN PLATELET VOLUME 9.3 fL (7.9-10.8); MONOCYTES # (AUTO) 0.8 10^3/uL (0.0-1.0); MONOCYTES % (AUTO) 9.9 %; NEUTROPHILS # (AUTO) 5.5 10^3/uL (1.5-6.6); NEUTROPHILS % (AUTO) 66.7 %; PLT - PLATELET COUNT 358 10^3/uL (130-450); RED BLOOD COUNT 5.37 10^6/uL (4.20-5.40); RED CELL DISTRIBUTION WIDTH 15.1 % (12.0-15.0); WHITE BLOOD COUNT 8.3 x10^3/uL (4.8-10.8)
--- NOTE | 2019-10-23 12:53 | XRAY Report ---
Reason: soa Procedure Date: 10/23/2019 Accession Number: [id number] / [id number] Procedure: XR - Chest 1 View X-Ray CPT Code: 27576 Final Report FULL RESULT: EXAM: CHEST RADIOGRAPHY EXAM DATE: 10/23/2019 12:34 PM. CLINICAL HISTORY: Shortness of air. COMPARISON: CHEST 1 VIEW 06/18/2019 11:03 AM CHEST 2 VIEW 02/13/2018 3:28 PM. TECHNIQUE: 1 view. FINDINGS: Lungs/Pleura: Lung volumes are low. Left greater than right bibasilar opacities. Lung apices are obscured. Vasculature is prominent. Mediastinum: Heart is enlarged. Aorta is tortuous. Aortic atherosclerosis. Other: None. IMPRESSION: 1. Hypoventilatory changes with left greater than right bibasilar opacities similar compared to 06/18/2019 and may be in part chronic due to chronic interstitial changes. Early superimposed consolidation not excluded. 2. Cardiomegaly. Vascular prominence. Suspect mild edema. RADIA
[2019-10-23 13:00] LABS: ALBUMIN 3.6 g/dL (3.2-5.5); ALBUMIN/GLOBULIN RATIO 1.6 (1.0-2.2); BILIRUBIN,TOTAL 1.3 mg/dL (0.2-1.0); CALCIUM 8.7 mg/dL (8.5-10.3); CREATININE 0.7 mg/dL (0.4-1.0); TOTAL PROTEIN 5.9 g/dL (6.7-8.2)
--- NOTE | 2019-10-23 13:17 | ED Physician Documentation ---
PD HPI DYSPNEA - Stated complaint Stated Complaint: SOA - Chief complaint Chief Complaint: Resp - History obtained from History obtained from: Patient - History of Present Illness Timing - onset: How many weeks ago (2) Timing - onset during: Rest Timing - duration: Weeks (2) Timing - details: Gradual onset, Still present Inciting event(s): URI Improved by: O2, Inhaler/neb Worsened by: Exertion, Coughing Associated symptoms: Cough, Wheezing Similar symptoms before: Diagnosis (COPD exacerbation) Recently seen: Clinic - Additional information Additional information: 63-year-old female with a history of atrial fibrillation and COPD has had an exacerbation of her COPD over the past 2 weeks and she has become increasingly short of breath. She went in finally to see her primary today and she was noted to be hypoxic on room air in the call the ambulance. She is brought to the emergency department with a heart rate of 140 and atrial fibrillation and room air hypoxia at 87%. She does not have exposure to coronavirus that she knows of. She has been in her home for the past 2 months. Review of Systems Constitutional: denies: Fever Eyes: denies: Decreased vision Ears: denies: Ear pain Nose: reports: Congestion. denies: Rhinorrhea / runny nose Throat: denies: Sore throat Cardiac: denies: Chest pain / pressure, Palpitations, Pedal edema, Calf pain Respiratory: reports: Dyspnea, Cough, Wheezing GI: reports: Nausea. denies: Abdominal Pain, Vomiting : denies: Dysuria, Frequency Skin: denies: Rash Musculoskeletal: denies: Neck pain, Back pain, Extremity pain Neurologic: denies: Generalized weakness, Focal weakness, Numbness PD PAST MEDICAL HISTORY - Past Medical History Past Medical History: Yes Cardiovascular: Atrial fibrillation, Hypertension Respiratory: Asthma, COPD Neuro: None Endocrine/Autoimmune: None GI: Other CHILDBIRTH EDUCATOR: Uterine cancer : None HEENT: None Psych: Anxiety Musculoskeletal: None Derm: None - Past Surgical History Past Surgical History: No General: Appendectomy, Other /CHILDBIRTH EDUCATOR: Hysterectomy, Oophrectomy HEENT: Tonsil/Adenoidectomy - Present Medications Home Medications: Ambulatory Orders Medication Instructions Recorded Confirmed Ipratropium/Albuterol [Combivent 1 puffs INH QID PRN 03/18/17 10/23/19 Respimat] Albuterol 2.5 mg INH Q4H PRN 04/18/17 10/23/19 Fluticasone/Salmeterol [Advair 1 inh INH BID 06/18/19 10/23/19 250-50 Diskus] Gabapentin 100 mg PO QID 06/18/19 10/23/19 LORazepam [Lorazepam] 1 mg PO TID PRN 06/18/19 10/23/19 diltiaZEM CD [Cardizem Cd] 240 mg PO DAILY 06/18/19 10/23/19 Ipratropium/Albuterol [Duoneb] 3 ml INH BID 10/23/19 10/23/19 Montelukast Sodium 100 mg PO DAILY 10/23/19 10/23/19 predniSONE [Deltasone] 10 mg PO DAILYWM 10/23/19 10/23/19 - Allergies Allergies/Adverse Reactions: Allergies Allergy/AdvReac Type Severity Reaction Status Date / Time No Known Drug Allergies Allergy Verified 10/23/19 13:34 - Social History Does the pt smoke?: Yes Smoking Status: Current every day smoker Does the pt drink ETOH?: No Does the pt have substance abuse?: No - Immunizations Immunizations are current?: Yes - POLST Patient has POLST: No POLST Status: Full Code PD ED PE NORMAL - Vitals Vital signs reviewed: Yes (tachy tachypneic and hypoxic) - General General: Alert and oriented X 3, Well developed/nourished, Other (Tachypneic at rest speaking in 3-4 word sentences and with some underlying angst.) - HEENT HEENT: Atraumatic, PERRL, EOMI, Ears normal, Other (Dry mucous membranes) - Neck Neck: Supple, no meningeal sign, No bony TTP - Cardiac Cardiac: No murmur, Other (Irregularly irregular rate and rhythm that is tachy to 140) - Respiratory Respiratory: Other (Tachypneic at rest with diminished breath sounds and rhonchi in the right base.) - Abdomen Abdomen: Soft, Non tender, No organomegaly - Back Back: No CVA TTP, No spinal TTP - Derm Derm: Normal color, Warm and dry, No rash - Extremities Extremities: No deformity, No edema, No calf tenderness / cord - Neuro Neuro: Alert and oriented X 3, hospice social worker 2-12 intact, No motor deficit, No sensory deficit, Normal speech Eye Opening: Spontaneous Motor: Obeys Commands Verbal: Oriented GCS Score: 15 - Psych Psych: Normal affect, Other (mood is angry) Results - Vitals Vitals: Vital Signs - 24 hr 10/23/19 10/23/19 10/23/19 12:05 12:39 12:44 Temperature 36.6 C Heart Rate 153 H 134 H 124 H Respiratory 30 H 17 20 Rate Blood Pressure 97/62 130/109 H 129/95 H O2 Saturation 87 L 90 L 91 L 10/23/19 10/23/19 10/23/19 13:37 14:24 14:38 Temperature Heart Rate 123 H 105 H 99 Respiratory 24 20 24 Rate Blood Pressure 126/103 H 120/97 H O2 Saturation 91 L 93 Oxygen O2 Source Room air Oxygen Flow Rate 2 - EKG (time done) 1208 Rate: Rate (enter#) (147) Intervals: Prolonged QT Ischemia: Q waves Compare to prior EKG: Changed from prior EKG (SPT 06-18-19 forces are less, rate is faster and prolonged QT interval has developed) Computer interpretation: Agree with computer - Labs Labs: Laboratory Tests 10/23/19 10/23/19 10/23/19 12:10 12:10 12:10 WBC 8.3 RBC 5.37 Hgb 14.9 Hct 49.6 H MCV 92.4 MCH 27.7 MCHC 30.0 L RDW 15.1 H Plt Count 358 MPV 9.3 Neut # (Auto) 5.5 Lymph # (Auto) 1.9 [place] # (Auto) 0.8 Eos # (Auto) 0.0 Baso # (Auto) 0.0 Absolute Nucleated RBC 0.00 Nucleated RBC % 0.0 Sodium 134 L Potassium 4.1 Chloride 95 L Carbon Dioxide 29 Anion Gap 10.0 BUN 9 Creatinine 0.7 Estimated GFR (MDRD) 84 L Glucose 92 Lactic Acid Calcium 8.7 Total Bilirubin 1.3 H AST 20 ALT 22 Alkaline Phosphatase 77 B-Natriuretic Peptide 413 H Total Protein 5.9 L Albumin 3.6 Globulin 2.3 Albumin/Globulin Ratio 1.6 Lipase 20 L Urine Color Urine Clarity Urine pH Ur Specific [place] Urine Protein Urine Glucose (UA) Urine Ketones Urine Occult Blood Urine Nitrite Urine Bilirubin Urine Urobilinogen Ur Leukocyte Esterase Ur Microscopic Review Urine Culture Comments 10/23/19 10/23/19 12:10 13:30 WBC RBC Hgb Hct MCV MCH MCHC RDW Plt Count MPV Neut # (Auto) Lymph # (Auto) [place] # (Auto) Eos # (Auto) Baso # (Auto) Absolute Nucleated RBC Nucleated RBC % Sodium Potassium Chloride Carbon Dioxide Anion Gap BUN Creatinine Estimated GFR (MDRD) Glucose Lactic Acid 1.4 Calcium Total Bilirubin AST ALT Alkaline Phosphatase B-Natriuretic Peptide Total Protein Albumin Globulin Albumin/Globulin Ratio Lipase Urine Color YELLOW Urine Clarity CLEAR Urine pH 6.0 Ur Specific [place] 1.010 Urine Protein NEGATIVE Urine Glucose (UA) NEGATIVE Urine Ketones NEGATIVE Urine Occult Blood NEGATIVE Urine Nitrite NEGATIVE Urine Bilirubin NEGATIVE Urine Urobilinogen 0.2 (NORMAL) Ur Leukocyte Esterase NEGATIVE Ur Microscopic Review NOT INDICATED Urine Culture Comments NOT INDICATED - Rads (name of study) chest Radiology: Prelim report reviewed (Impression: 1. Hypoventilatory changes with left greater than right bibasilar opacities similar compared to 06/18/2019 which may be in part chronic due to chronic interstitial changes. Early superimposed consolidation not excluded. 2 Cardiomegaly. Vascular prominence. Suspect mild edema.), EMP read indepedently, See rad report PD MEDICAL DECISION MAKING - ED course Complexity details: reviewed old records, reviewed results, re-evaluated patient, considered differential, d/w patient ED course: 63-year-old female with a history of COPD has a productive cough no fever and hypoxia on room air.She has been using her nebulizer at home she is had 2 treatments this morning she continues to be short of breath and she is in atrial fibrillation with a rapid ventricular response. She is administered diltiazem 20 mg intravenously. She is given a metered-dose inhaler as well as a second dose of diltiazem, solumedrol [address] Thomas is consulted in the case and recommends admission to the floor for continued care. Departure - Departure Disposition: [facility] DC/Xfer Clinical Impression: COPD exacerbation, Atrial fibrillation with RVR Condition: Serious
[2019-10-23 13:46] LABS: BILIRUBIN,URINE NEGATIVE (NEGATIVE); GLUCOSE, URINE (UA) NEGATIVE (NEGATIVE); KETONES,URINE (UA) NEGATIVE (NEGATIVE); LEUKOCYTE ESTERASE, URINE NEGATIVE (NEGATIVE); NITRITE,URINE NEGATIVE (NEGATIVE); OCCULT BLOOD,URINE NEGATIVE (NEGATIVE); PROTEIN,URINE NEGATIVE (NEGATIVE); UROBILINOGEN,URINE 0.2 (NORMAL) E.U./dL (NORMAL)
[2019-10-23 13:48] LABS: CLARITY,URINE CLEAR (CLEAR)
[2019-10-23] MEDS ORDERED: methylPREDNISolone SUCCINATE 125 MG/2 ML VIAL IVP STA (14:07)
[2019-10-23] MEDS: ALBUTEROL 1 PUFF INH STA ×3 (14:07→20:01)
[2019-10-23] MEDS ORDERED: cefTRIAXone 1 GM in SODIUM CHLORIDE 0.9% MINIBAG 100 ML IV STA (14:08)
--- NOTE | 2019-10-23 14:53 | PHARMACY PROGRESS NOTE ---
- Best Possible Medication History Admit Date and Time: Patient still in ED Processed by: Pharmacy Medication History completed: Yes Secondary Source(s): Physician records, Pharmacy records, Insurance records As the person ultimately responsible for medication therapy, providers are able to order a medication from an existing home medication list in [facility] via the "Reconcile Routine" prior to Confirmation of that medication by direct support professional caregiver. Such practice is discouraged except when the physician, in their clinical judgment, deems that a medical need exists for a medication without regard to previous use.
[2019-10-23] MEDS ORDERED: IPRATROPIUM INH PRN (14:58)
[2019-10-23] MEDS ORDERED: ALBUTEROL INH PRN (14:58)
[2019-10-23] MEDS ORDERED: ALBUTEROL 1 PUFF INH PRN ×2 (14:58→16:12)
[2019-10-23] MEDS: ASPIRIN EC 81 MG TABLET PO SCH (17:18)
[2019-10-23] MEDS: SODIUM CHLORIDE FLUSH 0.9% 10 ML SYRINGE IVP SCH (17:18)
[2019-10-23] MEDS: GABAPENTIN 100 MG CAPSULE PO SCH ×2 (17:18→21:36)
--- NOTE | 2019-10-23 18:31 | ADVANCE CARE PLANNING NOTE ---
Advance Care Planning - Planning Encounter Date: 10/23/19 Time: 18:00 Purpose: To clarify the patient's reason for changing her DNR status to full code. Parties in Attendance: I spoke to the patient alone in her room. Decisional Capacity of the Patient: She has full decisional capacity. - Encounter Subjective/Patient's Story: This is a 63-year-old white female who has severe COPD, has admissions for COPD exacerbation, has a past history of paroxysmal A. fib, uterine cancer requiring hysterectomy and biopsies were done that showed no peritoneal spread. The patient lives alone, has 2 very good girlfriends that help her. She no longer drives for the past 3 or 4 years. Patient has 1 grown son who lives in [place] who recently had a child and the granddaughter is now 4 years old. The patient also has a good adult daughter who is a special needs child and lives in a senior care. This daughter calls her every day and they have a very good relationship. In 2018 the patient had abdominal surgery for her appendix and following that as had chronic abdominal pain with work-up showing no obvious etiology. The pain is worse with food and it is so bad that she can only eat in a laying lateral decubitus position. The patient was here in June 2027 with a COPD exacerbation. At that time she had refused home O2 even though she qualified with a walking desaturation oxygen into the 79% range. She explained that if she recovered for a while the saturations karlie to 89%, which in fact they did. Over the past 2 weeks she has had worsening shortness of breath, has not been able to get an office visit or any medications called in from her PCP office, but there was a 6-minute walk test ordered for which she went today and the is technician noted how winded the pt was and could not even undergo the study. She was sent to the ER. She was also found to have a heart rate of 154 and A. fib. The patient did feel this as a "racing" but does not know for how many days. Since yesterday she has felt "like dog meat". She is very tired, has extreme air hunger. It is different than her past COPD exacerbations because she has a minimal cough and less wheezing. The patient has appropriately self isolated because of the COVID pandemic and has "not been out of her house since July". The 2 girlfriends however come into her house after they shop for her. Objective/Medical Story: This is a 63-year-old patient, ex-smoker who quit 3 and half years ago who has severe COPD, admissions for COPD exacerbation and pneumonia, paroxysmal A. fib history, abdominal pain ever since undergoing appendix surgery 2 or 3 years ago, chronic back pain from scoliosis, uterine cancer with hysterectomy. She lives alone.She no longer drives. She has 2 close girlfriends who assist her with everything. She developed shortness of breath and coughing and called her PCP office, requesting home oxygen, one and 1/2 weeks ago, but did not get a call back for many days. The next contact with them only resulted in a scheduled 6-minute walk test. She went for that test today, but was too SOB at rest to have the test, and was found to have a heart rate of 154 in A. fib and was sent to the ER. She did desaturate into the 80s on room air and has been started on oxygen. Chest x-ray shows bilateral infiltrates and she has started to get treatment for community-acquired pneumonia. A. fib with RVR has been treated with IV Cardizem boluses. Goals of Care: Patient wants to be around to continue to see her 4-year-old granddaughter. Also, her own adult daughter is a special needs child, lives in a senior care and contacts the mother every day. The patient wants to be available for this daughter. Patient also has changed her mind as to what she said 2 years ago, which was: Since she has been defibrillated in the past she does not think that another defibrillation would work and that she would come back from it. Now she realizes that past history does not equate to future recovery from a cardiac arrest. For these several reasons, she wants to now be a Full Code. She also felt that her life had terrible quality because of being constantly short of breath and having pain in the abdomen and spine and she wanted only comfort measures for medical management in the past. She now wants everything done to treat infections and any other diagnoses. Plan: The patient and I filled out and signed a new POLST form. The form indicates that she wants Attempt Resuscitation and full medical management. I will change her CODE STATUS to Full Code in the orders. The new POLST form will be scanned into [employer]. Code Status: Attempt Resuscitation Time spent on advance care plannin min
[2019-10-23] MEDS: LORazepam 1 MG TABLET PO PRN (18:56)
[2019-10-23] MEDS ORDERED: IPRATROPIUM/ALBUTEROL 3 ML NEB INH SCH (19:00)
--- NOTE | 2019-10-23 19:33 | HISTORY & PHYSICAL EXAMINATION ---
DATE OF SERVICE: 10/23/2019 Physician: Clarissa Bennett MD HISTORY OF PRESENT ILLNESS: This is a 63-year-old white female, ex-smoker, quit 3 years ago, who has COPD, has frequent admissions here for COPD exacerbation. She also has a past history of paroxysmal atrial fibrillation, but is not on aspirin or anticoagulants. She has a history of chronic abdominal pain ever since having appendix surgery 2 or 3 years ago. Workup has been done for this and no etiology found. The abdominal pain is worsened with food and she can only eat without developing pain if she lies in the left lateral decubitus position. Patient is mostly homebound because of her shortness of breath from COPD. She has also stopped driving 3 years ago. Patient lives alone, but has 2 girlfriends who assists her with shopping and bringing her things. During the COVID epidemic, patient has self-isolated and not been out of the house since July, 3 months now. Patient also has a history of insomnia and tremor when she is on steroids. The last admission in 06/2019, resulted in a documented need for oxygen with desaturations into the 70% range with walking; however, patient refused this, stating that if she waited and recovered for a while, her saturations karlie into the 80s. Patient also has a history of uterine cancer for which she underwent a complete hysterectomy and biopsies and the peritoneum showed no spread. Patient has a history of cardiac arrest that occurred during a procedure and she states that she was aware, as she was awakening and she has been very traumatized by that event. Because of that, she has believed that she should be a DNR because she, "would not survive another CPR, defibrillation from a cardiac arrest." Patient had filled out a POLST form (with me) in 2018 indicating she wants DNR/DNI status and comfort measures. Patient now presents with 1-1/2 to 2 week history of shortness of breath with a cough. She called her PCP's office and could not get an appointment, stated that she would like, "oxygen to be ordered for the house." There were no callbacks from the staff at the PCP office for 5-6 days and finally when there was more discussion, there was no change in medications, but a 6-minute walk test was ordered. Patient went to that appointment today and the donor technician could see she was so short of breath at rest that she could not undergo the walking test. Her oxygen at rest was 87% on room air. Her heart rate was also 154 in atrial fibrillation. Patient states she noticed that this was "racing" for the last 2 days. She was sent to the emergency room. She was found to have a heart rate in the 150s. Stable blood pressure, afebrile and very short of breath. She received diltiazem IV boluses x2, which has helped bring her heart rate to the 100-130 range. She was put on supplemental oxygen and other workup showed chest x-ray with bibasilar infiltrates. Patient is being admitted for a COPD exacerbation, community-acquired pneumonia, rule out COVID and atrial fibrillation with rapid ventricular response management. PAST MEDICAL HISTORY 1. COPD. 2. Atrial fibrillation, paroxysmal. 3. Uterine cancer removed. 4. Chronic abdominal pain with etiology unknown. ALLERGIES: NONE. MEDICATIONS 1. Diltiazem CD 240 mg daily. 2. Prednisone 10 mg daily. 3. Albuterol inhaler. 4. Advair inhaler. 5. Combivent. 6. Respimat p.r.n. 7. DuoNeb inhaler. 8. Lorazepam 1 mg t.i.d. p.r.n. anxiety. 9. Montelukast 10 mg daily at night. 10. Gabapentin 100 mg q.i.d. for her back pain. Family History: Neg for inheritable diseases. Social History: She was a lifelong smoker who quit 3 years ago. No history of drug or alcohol abuse. Patient has a son who lives in [place] and has his own family. Patient has an adult daughter, who has special needs and lives in a chcf. Patient is very close to this daughter and they communicate daily by phone. REVIEW OF SYSTEMS: Patient has scoliosis. Patient states that this exacerbation is different from her past ones in that she has less of a cough, no pleuritic chest pain while coughing, less sputum production and less wheezing, but more air hunger and shortness of breath. A comprehensive review of systems was performed and the pertinent positives are listed above, the rest are negative. PHYSICAL EXAMINATION GENERAL: White female, who appears older than her age. She has marked wrinkling and leathery appearance of the skin of her face. VITAL SIGNS: Blood pressure 130/80, heart rate 110 in atrial fibrillation, afebrile, oxygen saturation 92% on 3.5 liters oxygen by nasal cannula. HEENT: Shows moist oral mucosa. Her lips appear cyanotic. NECK: Positive JVD in a vertical position. CHEST: She has emaciated trunk with ribs visible posteriorly and she has kyphoscoliosis. LUNG: Exam shows nearly no air movement anywhere. There are no rales, rhonchi, or wheezes. She is tachypneic. HEART: Irregularly irregular, tachycardic. No murmurs are heard. ABDOMEN: Soft, positive bowel sounds, nontender. EXTREMITIES: No clubbing, cyanosis or edema. NEUROLOGIC: Grossly intact. LABORATORY DATA: Sodium 134, potassium 4.1, BUN 9, creatinine 0.7. Lactic acid 1.4. Normal liver tests. BNP 413. Troponin 14. Lipase normal. White blood count 8.3, hemoglobin 14.9, platelet count 358. No INR was done. Urinalysis unremarkable. Chest X-Ray: Hyperinflated lungs and bilateral lower lobe infiltrates, similar to Jun 2019 exam. EKG: Atrial fibrillation at a rate of 147. There is a lot of artifact. Probable vertical axis, poor R-wave progression, diffuse nonspecific ST-T changes. IMPRESSION 1. Atrial fibrillation with rapid ventricular response. 2. Paroxysmal atrial fibrillation by history, but not on aspirin or anticoagulation. 3. Chronic obstructive pulmonary disease with exacerbation. 4. Community-acquired pneumonia. 5. COVID-19 suspected. 6. Congestive heart failure, given the elevation of BNP. 7. Chronic abdominal pain. 8. History of uterine cancer, which has been treated. PLAN: Admit patient to medical/surgical status on telemetry. Afib rate treatment with another Cardizem IV bolus and then begin Cardizem 60 mg p.o. q. 6 hours for rate control. Begin aspirin for anticoagulation and stroke prophylaxis since this patient's CHADS score appears to be 0 (she has no CHF, no hypertension, not over 75, no diabetes and no prior stroke). No IV fluids will be started to treat the high heart rate since she does not appear volume depleted on exam, and also may have pulmonary edema on chest x-ray and a high BNP. If p.o. management is not successful for rate control. She may need transfer to the ICU for Cardizem drip. Continue with nebs for her pulmonary status as well as high-dose steroids for several days IV. Begin empiric Zithromax orally, plus IV ceftriaxone for community-acquired pneumonia, after obtaining sputum culture and blood cultures (blood has already been done in the ER). Obtain a COVID swab and begin respiratory isolation until the results are back. Check troponins, follow her BNP, obtain a new Echo, the last was done in 2018 showing a normal LVEF, but a dilated right ventricle. Continue with a diet that she prefers because of the abdominal pain, worsened by food. Continue with supplemental oxygen. Patient now would agree to having home oxygen, unlike her last admission 4 months ago, when she refused it. Patient now also wants a change in her code status to FULL CODE, because of the relationship that she has with her adult daughter and "wants to be around for the daughter." (See the advance care plan under a different dictation regarding this). CODE STATUS: FULL CODE. DEEP VENOUS THROMBOSIS PROPHYLAXIS: SCDs. ATTESTATION: Patient is expected to be discharged or transferred to another facility within 96 hours: Yes. cc: Dr Mark Reinoso, TD: 10/23/2019 19:14 MTDD
[2019-10-23] MEDS: ZOLPIDEM 5 MG TABLET PO PRN (21:35)
[2019-10-23] MEDS: FAMOTIDINE 20 MG TABLET PO SCH (21:36)
[2019-10-23] MEDS: methylPREDNISolone SUCCINATE 125 MG/2 ML VIAL IVP SCH (21:36)
[2019-10-23] MEDS: SALMETEROL INH SCH (21:37)
[2019-10-23] MEDS: FLUTICASONE INH SCH (21:37)
[2019-10-23] MEDS: IPRATROPIUM/ALBUTEROL 3 ML NEB INH SCH (23:45)
[2019-10-24] MEDS: LORazepam 1 MG TABLET PO PRN (00:49)
[2019-10-24] MEDS: SODIUM CHLORIDE FLUSH 0.9% 10 ML SYRINGE IVP SCH ×4 (00:51→23:38)
[2019-10-24] MEDS: ALBUTEROL NEB 2.5 MG/3 ML INH PRN (04:43)
[2019-10-24 05:25] LABS: BASOPHILS % (AUTO) 0.3 %; EOSINOPHILS % (AUTO) 0.3 %; HGB - HEMOGLOBIN 14.2 g/dL (12.0-16.0); LYMPHOCYTES # (AUTO) 0.2 10^3/uL (1.5-3.5); LYMPHOCYTES % (AUTO) 6.2 %; MEAN CORPUSCULAR HEMOGLOBIN 27.8 pg (27.0-31.0); MEAN CORPUSCULAR HGB CONC 29.9 g/dL (32.0-36.0); MEAN PLATELET VOLUME 8.9 fL (7.9-10.8); MONOCYTES # (AUTO) 0.1 10^3/uL (0.0-1.0); MONOCYTES % (AUTO) 1.3 %; NEUTROPHILS # (AUTO) 3.4 10^3/uL (1.5-6.6); NEUTROPHILS % (AUTO) 91.4 %; PLT - PLATELET COUNT 348 10^3/uL (130-450); RED BLOOD COUNT 5.11 10^6/uL (4.20-5.40); RED CELL DISTRIBUTION WIDTH 15.2 % (12.0-15.0); WHITE BLOOD COUNT 3.7 x10^3/uL (4.8-10.8)
[2019-10-24 05:38] LABS: CALCIUM 8.7 mg/dL (8.5-10.3); CREATININE 0.8 mg/dL (0.4-1.0); MAGNESIUM 2.1 mg/dL (1.7-2.8)
[2019-10-24] MEDS: methylPREDNISolone SUCCINATE 125 MG/2 ML VIAL IVP SCH ×3 (06:08→21:21)
[2019-10-24] MEDS: SODIUM CHLORIDE FLUSH 0.9% 10 ML SYRINGE IVP PRN (06:14)
[2019-10-24] MEDS: BUDESONIDE 0.5 MG/2 ML NEB INH SCH ×2 (07:11→19:45)
[2019-10-24] MEDS: IPRATROPIUM/ALBUTEROL 3 ML NEB INH SCH ×4 (07:11→19:45)
[2019-10-24] MEDS: FLUTICASONE INH SCH (07:11)
[2019-10-24] MEDS: SALMETEROL INH SCH (07:11)
[2019-10-24] MEDS ORDERED: cefTRIAXone 2 GM in SODIUM CHLORIDE 0.9% MINIBAG 100 ML IV SCH (09:00)
[2019-10-24] MEDS: ASCORBIC ACID CHEW 500 MG TABLET PO SCH (09:25)
[2019-10-24] MEDS: ACETAMINOPHEN 325 MG TABLET PO PRN (09:25)
[2019-10-24] MEDS: ASPIRIN EC 81 MG TABLET PO SCH (09:25)
[2019-10-24] MEDS: CHOLECALCIFEROL 400 UNIT TABLET PO SCH (09:25)
[2019-10-24] MEDS: LORazepam 1 MG TABLET PO SCH ×4 (09:26→21:20)
[2019-10-24] MEDS: FAMOTIDINE 20 MG TABLET PO SCH ×2 (09:26→21:20)
[2019-10-24] MEDS: AZITHROMYCIN 250 MG TABLET PO SCH (09:26)
[2019-10-24] MEDS: GABAPENTIN 100 MG CAPSULE PO SCH ×4 (09:26→21:21)
[2019-10-24] MEDS: MONTELUKAST 10 MG TABLET PO SCH (09:26)
[2019-10-24] MEDS: guaiFENesin 600 MG TABLET PO SCH ×2 (09:26→21:20)
[2019-10-24] MEDS: cefTRIAXone 2 GM in SODIUM CHLORIDE 0.9% MINIBAG 100 ML IV SCH (10:44)
[2019-10-24] MEDS: SENNA 8.6 MG TABLET PO SCH (11:07)
[2019-10-24] MEDS: DOCUSATE SODIUM 250 MG CAPSULE PO SCH (11:07)
[2019-10-24] MEDS: polyethylene glycoL 3350 17 GM PACKET PO SCH (16:16)
--- NOTE | 2019-10-24 18:28 | PROVIDER PROGRESS NOTE ---
Assessment/Plan - Problem List (1) Atrial fibrillation with RVR Assessment/Plan: The heart rate [id number] today on Cardizem 60 mg p.o. every 6 hours. She is also getting daily aspirin as her anticoagulant. The Echo result showed: Continued moderately dilated right ventricle with newly depressed RV function, newly mildly depressed LV function with EF 50%, moderate mitral and tricuspid regurgitation which are more than the last Echo and new pulmonary hypertension with PA pressure 46 mmHg (mild pulmonary HTN). She wanted to know why we did not use Adenosine as they did during a [place] hospitalization and I explained the overall management at bedside to her. Continue to treat the underlying COPD exacerbation which will help with tachycardia as well. Will add beta-1 selective beta-cadence for help with heart rate control. (2) COPD exacerbation Assessment/Plan: She feels some improvement with her oxygen, nebs, IV steroids, and treating the infection. Continue with present plan. (3) Community acquired pneumonia Assessment/Plan: Her COVID-19 test returned negative. Will stop respiratory isolation. Continue with oral Zithromax to avoid volume overload and IV ceftriaxone empiric treatment. Await sputum culture results. Blood cultures are negative today (4) Constipation Assessment/Plan: The patient states she usually "only eats 1 meal a day". She also has to be in a specific position during feeding her all she gets abdominal pain. She believes that she was so hungry that she "scarf down yesterday's dinner, then had 2 sandwiches for a night snack and had her full breakfast". This led to constipation today. Will offer bowel meds per protocol. (5) CHF (congestive heart failure) Assessment/Plan: The LVEF is now slightly below normal at 50%, compared to 3 years ago when it was 75%. This is very likely related to longstanding Procardia. Will add beta-1 selective beta-cadence for help with heart rate control and for this mild CHF. (6) Cor pulmonale Assessment/Plan: This is likely from her longstanding COPD and the current exacerbation. She will be very fluid sensitive because of this. Continue with the current plan for now IV hydration but no starting of Lasix. (7) Chronic pain Assessment/Plan: She has chronic pain in her back from kyphoscoliosis and chronic abdominal pain for the past 3 years after that abdominal surgery. Continue with PRN pain management - Current Meds Current Meds: Current Medications Generic Name Dose Route Start Last Admin Trade Name Freq PRN Reason Stop Dose Admin Acetaminophen 650 mg 10/23/19 14:59 10/24/19 09:25 Tylenol PO 650 mg Q4HR PRN Administration Pain or Fever > 38C (100.4F) Albuterol 2.5 mg 10/23/19 18:25 10/24/19 04:43 INH 2.5 mg RTQ4H PRN Administration Wheezing Albuterol/Ipratropium 3 ml 10/23/19 21:00 10/24/19 16:31 Duoneb INH 3 ml RTQID MATTHEW Administration Ascorbic Acid 500 mg 10/24/19 09:00 10/24/19 09:25 Vitamin C PO 500 mg DAILY MATTHEW Administration Aspirin 81 mg 10/23/19 18:00 10/24/19 09:25 Ecotrin PO 81 mg DAILY MATTHEW Administration Azithromycin 250 mg 10/24/19 09:00 10/24/19 09:26 Zithromax PO 10/28/19 00:00 250 mg DAILY MATTHEW Administration Budesonide 0.5 mg 10/24/19 07:00 10/24/19 07:11 Pulmicort INH 0.5 mg RTBID MATTHEW Administration Cholecalciferol 800 unit 10/24/19 09:00 10/24/19 09:25 Vitamin D3 PO 800 unit DAILY MATTHEW Administration Diltiazem HCl 60 mg 10/23/19 18:00 10/24/19 17:34 Cardizem PO 60 mg Q6HR MATTHEW Administration Docusate Sodium 250 - 500 mg 10/24/19 11:00 10/24/19 11:07 Colace 250mg Capsule PO 250 mg DAILY MATTHEW Administration Famotidine 20 mg 10/23/19 21:00 10/24/19 09:26 Pepcid PO 20 mg BID MATTHEW Administration Gabapentin 100 mg 10/23/19 17:00 10/24/19 17:34 Neurontin PO 100 mg QID MATTHEW Administration Guaifenesin 600 mg 10/24/19 09:00 10/24/19 09:26 Mucinex PO 600 mg BID MATTHEW Administration Ceftriaxone Sodium 2 gm/ 100 mls @ 200 mls/hr 10/24/19 10:30 10/24/19 11:30 Sodium Chloride IV 10/27/19 09:29 Infused DAILY MATTHEW Infusion Lorazepam 1 mg 10/24/19 09:00 10/24/19 17:34 Ativan PO 1 mg QID MATTHEW Administration Methylprednisolone Sodium Succinate 80 mg 10/23/19 22:00 10/24/19 13:33 Solu-Medrol (125mg Vial) IVP 80 mg Q8H MATTHEW Administration Montelukast Sodium 10 mg 10/24/19 09:00 10/24/19 09:26 Singulair PO 10 mg DAILY MATTHEW Administration Polyethylene Glycol 17 gm 10/24/19 16:09 10/24/19 16:16 Miralax PO 17 gm DAILY MATTHEW Administration Senna 8.6 - 17.2 mg 10/24/19 11:00 10/24/19 11:07 Senokot PO 8.6 mg DAILY MATTHEW Administration Sodium Chloride 10 ml 10/23/19 14:59 10/24/19 06:14 Normal Saline Flush 0.9% IVP 10 ml PRN PRN Administration NEEDED PER PROVIDER ORDERS Sodium Chloride 10 ml 10/23/19 17:00 10/24/19 17:34 Normal Saline Flush 0.9% IVP 10 ml 0100,0900,1700 MATTHEW Administration Zolpidem Tartrate 2.5 mg 10/23/19 20:00 10/23/19 21:35 Ambien PO 2.5 mg QPM PRN Administration Insomnia - Lab Result [place] Diagrams: 10/24/19 04:50 10/24/19 04:50 - Additional Planning My Orders: My Active Orders 10/23/19 18:00 Aspirin EC [Ecotrin] 81 mg PO DAILY diltiaZEM [Cardizem] 60 mg PO Q6HR 10/23/19 18:25 Albuterol 2.5 mg INH RTQ4H PRN 10/23/19 18:26 Nebulizer/MDI Tx. [RC] .QID/BID/Q4PRN Resp Teach Nebulizer/MDI [RC] .ONCE 10/23/19 20:00 Zolpidem [Ambien] 2.5 mg PO QPM PRN 10/23/19 21:00 Famotidine [Pepcid] 20 mg PO BID 10/23/19 22:00 methylPREDNISolone SUCCINATE [SOLU-Medrol (125MG VIAL)] 80 mg IVP Q8H 10/24/19 08:00 Echo Transthoracic Complete [ECHO] Routine 10/24/19 09:00 Ascorbic Acid Chew [Vitamin C] 500 mg PO DAILY Azithromycin [Zithromax] 250 mg PO DAILY Cholecalciferol [Vitamin D3] 800 unit PO DAILY LORazepam [Ativan] 1 mg PO QID Montelukast [Singulair] 10 mg PO DAILY guaiFENesin [Mucinex] 600 mg PO BID 10/24/19 09:20 Isolation - Discontinue [RC] .once 10/24/19 10:30 cefTRIAXone [Rocephin] 2 gm Sodium Chloride 0.9% Minibag [Normal Saline 0.9% Minibag] 100 ml IV DAILY 10/24/19 11:00 Docusate Sodium 250Mg Capsule [Colace 250Mg Capsule] 250 - 500 mg PO DAILY Senna [Senokot] 8.6 - 17.2 mg PO DAILY 10/24/19 16:09 polyethylene glycoL 3350 [Miralax] 17 gm PO DAILY 10/24/19 Breakfast DIET [Regular Diet] [DIET] 10/25/19 05:00 BMP - BASIC METABOLIC PANEL [CHEM] DAILYLAB CBC - COMP BLD CT W/AUTO DIFF [HEME] DAILYLAB 10/26/19 05:00 BMP - BASIC METABOLIC PANEL [CHEM] DAILYLAB CBC - COMP BLD CT W/AUTO DIFF [HEME] DAILYLAB Subjective - Subjective Patient Reports: Feeling Better (She feels better air movement and can hear wheezing on her own.), Constipation Objective Vital Signs: Vital Signs - 24 hr 10/23/19 10/23/19 10/23/19 19:43 20:04 20:40 Temperature 37.1 C Heart Rate 120 H Heart Rate [ 115 H 134 H Monitoring electrodes] Respiratory 22 18 Rate Blood Pressure Blood Pressure 118/90 H [Right Brachial artery] O2 Saturation 10/23/19 10/23/19 10/24/19 21:40 23:46 00:49 Temperature Heart Rate 115 H Heart Rate [ 117 H Monitoring electrodes] Respiratory 22 Rate Blood Pressure 119/84 H Blood Pressure [Right Brachial artery] O2 Saturation 92 10/24/19 10/24/19 10/24/19 00:54 04:43 05:00 Temperature 36.5 C 36.6 C Heart Rate 102 H Heart Rate [ 87 120 H Monitoring electrodes] Respiratory 18 22 24 Rate Blood Pressure Blood Pressure 119/84 H 107/81 H [Right Brachial artery] O2 Saturation 92 90 L 10/24/19 10/24/19 10/24/19 06:08 07:16 08:06 Temperature 36.8 C Heart Rate 100 Heart Rate [ 116 H Monitoring electrodes] Respiratory 22 16 Rate Blood Pressure 107/81 H Blood Pressure 109/79 [Right Brachial artery] O2 Saturation 92 10/24/19 10/24/19 10/24/19 11:23 11:51 12:56 Temperature 36.7 C Heart Rate 20 L Heart Rate [ 111 H Monitoring electrodes] Respiratory 117 H 20 Rate Blood Pressure 115/89 H Blood Pressure 115/89 H [Right Brachial artery] O2 Saturation 94 10/24/19 10/24/19 10/24/19 15:43 16:32 17:34 Temperature 36.9 C Heart Rate 113 H Heart Rate [ 62 Monitoring electrodes] Respiratory 18 20 Rate Blood Pressure 114/84 H Blood Pressure 114/84 H [Right Brachial artery] O2 Saturation 93 Oxygen O2 Source Nasal cannula Oxygen Flow Rate 2 I&O (Last 24 Hrs): Intake and Output Totals x24h 10/22/19 10/23/19 10/24/19 23:59 23:59 23:59 Intake Total 600 1240 Balance 600 1240 General: Alert, Oriented x3 HEENT: Mucous membr. moist/pink Neck: Supple, No JVD Neuro: Alert, Non Focal Cardiovascular: Other (Irreg irreg, no murmur) Respiratory: No respiratory distress, Other (Scattered wheezing, better airmovement than yesterday.) Abdomen: Soft, Other (No guarding or rebound. Diminished bowel sounds diffusly.) Extremities: No edema Skin: No rashes (Marked creases and wrinkles of face (consistent with prolonged smoking Hx).) - Results Results: Laboratory Results WBC 3.7 x10^3/uL (4.8-10.8) L 10/24/19 04:50 RBC 5.11 10^6/uL (4.20-5.40) 10/24/19 04:50 Hgb 14.2 g/dL (12.0-16.0) 10/24/19 04:50 Hct 47.5 % (37.0-47.0) H 10/24/19 04:50 MCV 93.0 fL (81.0-99.0) 10/24/19 04:50 MCH 27.8 pg (27.0-31.0) 10/24/19 04:50 MCHC 29.9 g/dL (32.0-36.0) L 10/24/19 04:50 RDW 15.2 % (12.0-15.0) H 10/24/19 04:50 Plt Count 348 10^3/uL (130-450) 10/24/19 04:50 MPV 8.9 fL (7.9-10.8) 10/24/19 04:50 Neut # (Auto) 3.4 10^3/uL (1.5-6.6) 10/24/19 04:50 Lymph # (Auto) 0.2 10^3/uL (1.5-3.5) L 10/24/19 04:50 [place] # (Auto) 0.1 10^3/uL (0.0-1.0) 10/24/19 04:50 Eos # (Auto) 0.0 10^3/uL (0.0-0.7) 10/24/19 04:50 Baso # (Auto) 0.0 10^3/uL (0.0-0.1) 10/24/19 04:50 Absolute Nucleated RBC 0.00 x10^3/uL 10/24/19 04:50 Nucleated RBC % 0.0 /100WBC 10/24/19 04:50 Sodium 136 mmol/L (135-145) 10/24/19 04:50 Potassium 4.9 mmol/L (3.5-5.0) 10/24/19 04:50 Chloride 98 mmol/L (101-111) L 10/24/19 04:50 Carbon Dioxide 29 mmol/L (21-32) 10/24/19 04:50 Anion Gap 9.0 (6-13) 10/24/19 04:50 BUN 11 mg/dL (6-20) 10/24/19 04:50 Creatinine 0.8 mg/dL (0.4-1.0) 10/24/19 04:50 Estimated GFR (MDRD) 72 (>89) L 10/24/19 04:50 Glucose 174 mg/dL (70-100) H 10/24/19 04:50 Lactic Acid 1.4 mmol/L (0.5-2.2) 10/23/19 12:10 Calcium 8.7 mg/dL (8.5-10.3) 10/24/19 04:50 Magnesium 2.1 mg/dL (1.7-2.8) 10/24/19 04:50 Total Bilirubin 1.3 mg/dL (0.2-1.0) H 10/23/19 12:10 AST 20 IU/L (10-42) 10/23/19 12:10 ALT 22 IU/L (10-60) 10/23/19 12:10 Alkaline Phosphatase 77 IU/L (42-121) 10/23/19 12:10 Troponin I High Sens 17.1 ng/L (2.3-14.8) H* 10/23/19 15:49 B-Natriuretic Peptide 396 pg/mL (5-100) H 10/24/19 04:50 Total Protein 5.9 g/dL (6.7-8.2) L 10/23/19 12:10 Albumin 3.6 g/dL (3.2-5.5) 10/23/19 12:10 Globulin 2.3 g/dL (2.1-4.2) 10/23/19 12:10 Albumin/Globulin Ratio 1.6 (1.0-2.2) 10/23/19 12:10 Lipase 20 U/L (22-51) L 10/23/19 12:10 Urine Color YELLOW 10/23/19 13:30 Urine Clarity CLEAR (CLEAR) 10/23/19 13:30 Urine pH 6.0 PH (5.0-7.5) 10/23/19 13:30 Ur Specific [place] 1.010 (1.002-1.030) 10/23/19 13:30 Urine Protein NEGATIVE mg/dL (NEGATIVE) 10/23/19 13:30 Urine Glucose (UA) NEGATIVE mg/dL (NEGATIVE) 10/23/19 13:30 Urine Ketones NEGATIVE mg/dL (NEGATIVE) 10/23/19 13:30 Urine Occult Blood NEGATIVE (NEGATIVE) 10/23/19 13:30 Urine Nitrite NEGATIVE (NEGATIVE) 10/23/19 13:30 Urine Bilirubin NEGATIVE (NEGATIVE) 10/23/19 13:30 Urine Urobilinogen 0.2 (NORMAL) E.U./dL (NORMAL) 10/23/19 13:30 Ur Leukocyte Esterase NEGATIVE (NEGATIVE) 10/23/19 13:30 Ur Microscopic Review NOT INDICATED 10/23/19 13:30 Urine Culture Comments NOT INDICATED 10/23/19 13:30 Coronavirus (PCR) NEGATIVE 10/23/19 15:45 - Procedures Procedures: Procedures ASSIST W CARDIAC OUTPUT W PULS COMPRESSION, CONTINUOUS (07/13/15) ASSISTANCE WITH RESPIRATORY VENTILATION, 24-96 HRS, CPAP (07/13/15) DRAINAGE OF R PLEURAL CAV WITH DRAIN DEV, PERC APPROACH (07/13/15) EXCISION OF LIVER, OPEN APPROACH, DIAGNOSTIC (10/03/17) INSERTION OF ENDOTRACHEAL AIRWAY INTO TRACHEA, VIA OPENING (07/13/15) INSERTION OF INFUSION DEV INTO SUP VENA CAVA, PERC APPROACH (07/13/15) INSPECTION OF UPPER INTESTINAL TRACT, ENDO (01/21/18) INTRODUCTION OF NUTRITIONAL INTO CENTRAL VEIN, PERC APPROACH (07/13/15) MONITORING OF VENOUS PRESSURE, CENTRAL, PERC APPROACH (07/13/15) REPAIR LEFT INGUINAL REGION, OPEN APPROACH (10/03/17) RESECTION OF APPENDIX, OPEN APPROACH (07/13/15) RESECTION OF BILATERAL FALLOPIAN TUBES, OPEN APPROACH (10/03/17) RESECTION OF BILATERAL OVARIES, OPEN APPROACH (10/03/17) RESECTION OF UTERUS, OPEN APPROACH (10/03/17) RESPIRATORY VENTILATION, 24-96 CONSECUTIVE HOURS (07/13/15) TRANSFUSE NONAUT RED BLOOD CELLS IN PERIPH VEIN, PERC (01/21/18)
[2019-10-24] MEDS ORDERED: SALINE ENEMA 133 ML BOTTLE RC ONE (18:48)
[2019-10-24] MEDS: METOPROLOL SUCCINATE 25 MG TABLET PO SCH (21:21)
[2019-10-24] MEDS: ZOLPIDEM 5 MG TABLET PO PRN (21:21)
[2019-10-25] MEDS: BENZOCAINE/MENTHOL LOZENGE MM PRN (02:58)
[2019-10-25] MEDS: LORazepam 1 MG TABLET PO SCH ×4 (02:58→20:20)
[2019-10-25] MEDS: ALBUTEROL NEB 2.5 MG/3 ML INH PRN (03:07)
[2019-10-25] MEDS: methylPREDNISolone SUCCINATE 125 MG/2 ML VIAL IVP SCH ×3 (06:37→23:04)
[2019-10-25] MEDS: SODIUM CHLORIDE FLUSH 0.9% 10 ML SYRINGE IVP PRN ×5 (06:39→23:05)
[2019-10-25] MEDS: IPRATROPIUM/ALBUTEROL 3 ML NEB INH SCH ×4 (07:40→19:06)
[2019-10-25] MEDS: BUDESONIDE 0.5 MG/2 ML NEB INH SCH ×2 (07:40→19:06)
[2019-10-25 07:44] LABS: CALCIUM 8.8 mg/dL (8.5-10.3); CREATININE 0.6 mg/dL (0.4-1.0)
[2019-10-25 07:48] LABS: EOSINOPHILS % (AUTO) 0.2 %; HGB - HEMOGLOBIN 13.8 g/dL (12.0-16.0); LYMPHOCYTES # (AUTO) 0.3 10^3/uL (1.5-3.5); LYMPHOCYTES % (AUTO) 3.9 %; MEAN CORPUSCULAR HEMOGLOBIN 27.9 pg (27.0-31.0); MEAN CORPUSCULAR HGB CONC 30.1 g/dL (32.0-36.0); MEAN CORPUSCULAR VOLUME 92.7 fL (81.0-99.0); MEAN PLATELET VOLUME 9.2 fL (7.9-10.8); MONOCYTES # (AUTO) 0.2 10^3/uL (0.0-1.0); MONOCYTES % (AUTO) 2.7 %; NEUTROPHILS % (AUTO) 92.9 %; PLT - PLATELET COUNT 352 10^3/uL (130-450); RED BLOOD COUNT 4.95 10^6/uL (4.20-5.40); RED CELL DISTRIBUTION WIDTH 14.8 % (12.0-15.0); WHITE BLOOD COUNT 6.4 x10^3/uL (4.8-10.8)
[2019-10-25] MEDS: SODIUM CHLORIDE FLUSH 0.9% 10 ML SYRINGE IVP SCH ×2 (08:44→16:06)
[2019-10-25] MEDS: ONDANSETRON 4 MG/2 ML VIAL IVP PRN ×2 (08:44→20:09)
[2019-10-25] MEDS: cefTRIAXone 2 GM in SODIUM CHLORIDE 0.9% MINIBAG 100 ML IV SCH (08:49)
[2019-10-25] MEDS: ACETAMINOPHEN 325 MG TABLET PO PRN ×3 (08:51→20:13)
[2019-10-25] MEDS: MONTELUKAST 10 MG TABLET PO SCH (08:52)
[2019-10-25] MEDS: METOPROLOL SUCCINATE 25 MG TABLET PO SCH ×2 (08:52→20:12)
[2019-10-25] MEDS: FAMOTIDINE 20 MG TABLET PO SCH ×2 (08:52→20:12)
[2019-10-25] MEDS: ASPIRIN EC 81 MG TABLET PO SCH (08:57)
[2019-10-25] MEDS: DOCUSATE SODIUM 250 MG CAPSULE PO SCH (08:57)
[2019-10-25] MEDS: AZITHROMYCIN 250 MG TABLET PO SCH (08:57)
[2019-10-25] MEDS: SENNA 8.6 MG TABLET PO SCH (08:57)
[2019-10-25] MEDS: guaiFENesin 600 MG TABLET PO SCH ×2 (08:57→20:13)
[2019-10-25] MEDS: polyethylene glycoL 3350 17 GM PACKET PO SCH (08:57)
[2019-10-25] MEDS: ASCORBIC ACID CHEW 500 MG TABLET PO SCH (08:57)
[2019-10-25] MEDS: CHOLECALCIFEROL 400 UNIT TABLET PO SCH (08:58)
[2019-10-25] MEDS ORDERED: polyethylene glycoL 3350 17 GM PACKET PO SCH (09:00)
[2019-10-25] MEDS: GABAPENTIN 100 MG CAPSULE PO SCH ×4 (09:00→20:12)
[2019-10-25] MEDS ORDERED: MINERAL OIL ENEMA 133 ML BOTTLE RC PRN (09:02)
[2019-10-25] MEDS ORDERED: SALINE ENEMA 133 ML BOTTLE RC PRN (09:04)
[2019-10-25] MEDS ORDERED: SALINE ENEMA 133 ML BOTTLE RC SCH (10:00)
--- NOTE | 2019-10-25 15:51 | PROVIDER PROGRESS NOTE ---
Assessment/Plan - Problem List (1) Atrial fibrillation with RVR Assessment/Plan: Continue metoprolol succinate 12.5 twice daily in addition to Cardizem 60 mg every 6 for rate control and aspirin for stroke prophylaxis. If the heart rate is better all day with this combination, will switch back to her Cardizem CD 240 mg daily starting tomorrow morning. And if that is the case, she may be ready for discharge tomorrow. (2) COPD exacerbation Assessment/Plan: Will add Robitussin prn cough. Continue Mucinex, nebs, steroids, empiric antibx. (3) Community acquired pneumonia Assessment/Plan: Continue Zithromax and ceftriaxone. Her sputum is growing 2 bacteria including a gram-negative angela therefore ceftriaxone should continue. We will wait for identification, hopefully tomorrow, to transition to an oral agent on which she can be discharged. (4) Constipation Assessment/Plan: This is 1 of the causes of her chronic abdominal pain that is intermittent for the past 3 years. Will order daily as needed fleets enemas (5) CHF (congestive heart failure) Assessment/Plan: The EF from the echo done on this admission, is newly mildly depressed at 50%. That is why the metoprolol was started during this admission. She also received no IV fluids but also no Lasix because she was euvolemic clinically. Continue daily aspirin (6) Cor pulmonale Assessment/Plan: Euvolemic by exam with no leg edema, therefore no Lasix but also no IV fluids are being administered (7) Chronic pain Assessment/Plan: Mostly she has abdominal pain but also back pain from kyphoscoliosis. Management for abdominal pain is with antiemetics and to laying a certain position when she eats and to not "overeat" which she has been doing while here because she likes the taste of the food. Her back pain is controlled with current pain meds. - Current Meds Current Meds: Current Medications Generic Name Dose Route Start Last Admin Trade Name Freq PRN Reason Stop Dose Admin Acetaminophen 650 mg 10/23/19 14:59 10/25/19 08:51 Tylenol PO 650 mg Q4HR PRN Administration Pain or Fever > 38C (100.4F) Albuterol 2.5 mg 10/23/19 18:25 10/25/19 03:07 INH 2.5 mg RTQ4H PRN Administration Wheezing Albuterol/Ipratropium 3 ml 10/23/19 21:00 10/25/19 15:40 Duoneb INH 3 ml RTQID MATTHEW Administration Ascorbic Acid 500 mg 10/24/19 09:00 10/25/19 08:57 Vitamin C PO 500 mg DAILY MATTHEW Administration Aspirin 81 mg 10/23/19 18:00 10/25/19 08:57 Ecotrin PO 81 mg DAILY MATTHEW Administration Azithromycin 250 mg 10/24/19 09:00 10/25/19 08:57 Zithromax PO 10/28/19 00:00 250 mg DAILY MATTHEW Administration Budesonide 0.5 mg 10/24/19 07:00 10/25/19 07:40 Pulmicort INH 0.5 mg RTBID MATTHEW Administration Cholecalciferol 800 unit 10/24/19 09:00 10/25/19 08:58 Vitamin D3 PO 800 unit DAILY MATTHEW Administration Diltiazem HCl 60 mg 10/23/19 18:00 10/25/19 12:35 Cardizem PO 60 mg Q6HR MATTHEW Administration Docusate Sodium 250 - 500 mg 10/24/19 11:00 10/25/19 08:57 Colace 250mg Capsule PO 250 mg DAILY MATTHEW Administration Famotidine 20 mg 10/23/19 21:00 10/25/19 08:52 Pepcid PO 20 mg BID MATTHEW Administration Gabapentin 100 mg 10/23/19 17:00 10/25/19 12:37 Neurontin PO 100 mg QID MATTHEW Administration Guaifenesin 600 mg 10/24/19 09:00 10/25/19 08:57 Mucinex PO 600 mg BID MATTHEW Administration Ceftriaxone Sodium 2 gm/ 100 mls @ 200 mls/hr 10/24/19 10:30 10/25/19 08:49 Sodium Chloride IV 10/27/19 09:29 200 mls/hr DAILY MATTHEW Administration Lorazepam 1 mg 10/25/19 03:00 10/25/19 09:00 Ativan PO 1 mg Q6H MATTHEW Administration Methylprednisolone Sodium Succinate 80 mg 10/23/19 22:00 10/25/19 06:37 Solu-Medrol (125mg Vial) IVP 80 mg Q8H MATTHEW Administration Metoprolol Succinate 12.5 mg 10/24/19 21:00 10/25/19 08:52 Toprol Xl PO 12.5 mg BID MATTHEW Administration Montelukast Sodium 10 mg 10/24/19 09:00 10/25/19 08:52 Singulair PO 10 mg DAILY MATTHEW Administration Ondansetron HCl 4 mg 10/23/19 14:59 10/25/19 08:44 Zofran Inj IVP 4 mg Q6HR PRN Administration Nausea / Vomiting Polyethylene Glycol 17 gm 10/24/19 16:09 10/25/19 08:57 Miralax PO 17 gm DAILY MATTHEW Administration Senna 8.6 - 17.2 mg 10/24/19 11:00 10/25/19 08:57 Senokot PO 8.6 mg DAILY MATTHEW Administration Sodium Chloride 10 ml 10/23/19 14:59 10/25/19 08:50 Normal Saline Flush 0.9% IVP 10 ml PRN PRN Administration NEEDED PER PROVIDER ORDERS Sodium Chloride 10 ml 10/23/19 17:00 10/25/19 08:44 Normal Saline Flush 0.9% IVP 10 ml 0100,0900,1700 MATTHEW Administration Throat Lozenges 1 lozenge 10/25/19 02:33 10/25/19 02:58 Cepacol MM 1 lozenge Q2HR PRN Administration Throat pain Zolpidem Tartrate 2.5 mg 10/23/19 20:00 10/24/19 21:21 Ambien PO 2.5 mg QPM PRN Administration Insomnia - Lab Result Fish Bone Diagrams: 10/26/19 05:10 10/26/19 05:10 - Additional Planning My Orders: My Active Orders 10/24/19 16:09 polyethylene glycoL 3350 [Miralax] 17 gm PO DAILY 10/24/19 21:00 Metoprolol Succinate [Toprol Xl] 12.5 mg PO BID 10/25/19 02:33 Benzocaine/Menthol [Cepacol] 1 lozenge MM Q2HR PRN 10/25/19 09:02 Mineral Oil [Mineral Oil Enema] 133 ml RC DAILY PRN 10/25/19 09:04 Saline Enema [Fleets Saline Enema] 133 ml RC DAILY PRN 10/26/19 05:00 BMP - BASIC METABOLIC PANEL [CHEM] DAILYLAB CBC - COMP BLD CT W/AUTO DIFF [HEME] DAILYLAB Subjective - Subjective Patient Reports: Feeling Better (Eating is better, abdominal pain is better after 3 bowel movements after the fleets enema last night.) Objective Vital Signs: Vital Signs - 24 hr 10/24/19 10/24/19 10/24/19 16:32 17:34 19:47 Temperature Heart Rate 113 H 96 Heart Rate [ Brachial] Heart Rate [ Monitoring electrodes] Respiratory 20 20 Rate Blood Pressure 114/84 H Blood Pressure [Right Brachial artery] O2 Saturation 10/24/19 10/24/19 10/25/19 20:17 23:45 01:16 Temperature 36.5 C 36.4 C L Heart Rate Heart Rate [ 95 Brachial] Heart Rate [ 105 H Monitoring electrodes] Respiratory 18 16 Rate Blood Pressure 123/85 H Blood Pressure 115/86 H 112/85 H [Right Brachial artery] O2 Saturation 94 95 10/25/19 10/25/19 10/25/19 02:50 03:09 06:43 Temperature 36.6 C Heart Rate 96 Heart Rate [ 85 Brachial] Heart Rate [ Monitoring electrodes] Respiratory 18 18 Rate Blood Pressure 116/83 H Blood Pressure 114/85 H [Right Brachial artery] O2 Saturation 96 10/25/19 10/25/19 10/25/19 07:40 08:12 11:30 Temperature 36.5 C Heart Rate 110 H 95 Heart Rate [ 114 H Brachial] Heart Rate [ Monitoring electrodes] Respiratory 20 20 20 Rate Blood Pressure Blood Pressure 116/84 H [Right Brachial artery] O2 Saturation 95 10/25/19 10/25/19 10/25/19 12:35 12:38 15:40 Temperature 37 C Heart Rate 94 Heart Rate [ 105 H Brachial] Heart Rate [ Monitoring electrodes] Respiratory 16 16 Rate Blood Pressure 104/73 Blood Pressure 104/73 [Right Brachial artery] O2 Saturation 96 Oxygen O2 Source Nasal cannula Oxygen Flow Rate 2 I&O (Last 24 Hrs): Intake and Output Totals x24h 10/23/19 10/24/19 10/25/19 23:59 23:59 23:59 Intake Total 600 1240 200 Balance 600 1240 200 General: Alert, Oriented x3 HEENT: Mucous membr. moist/pink, Other (On O2 n.c. Cachectic. Marked skin wrinkling and leathery skin.) Neck: Supple, No JVD Neuro: Alert, Non Focal Cardiovascular: No murmurs, Other (Irreg) Respiratory: Other (Diffuse wheezing and basilar crackles present) Abdomen: Soft, Other (diminished bowel sounds) Extremities: No edema - Results Results: Laboratory Results WBC 6.4 x10^3/uL (4.8-10.8) 10/25/19 07: RBC 4.95 10^6/uL (4.20-5.40) 10/25/19 07: Hgb 13.8 g/dL (12.0-16.0) 10/25/19 07: Hct 45.9 % (37.0-47.0) 10/25/19 07: MCV 92.7 fL (81.0-99.0) 10/25/19 07: MCH 27.9 pg (27.0-31.0) 10/25/19 07: MCHC 30.1 g/dL (32.0-36.0) L 10/25/19 07: RDW 14.8 % (12.0-15.0) 10/25/19 07: Plt Count 352 10^3/uL (130-450) 10/25/19 07: MPV 9.2 fL (7.9-10.8) 10/25/19 07:31 Neut # (Auto) 6.0 10^3/uL (1.5-6.6) 10/25/19 07: Lymph # (Auto) 0.3 10^3/uL (1.5-3.5) L 10/25/19 07:31 [place] # (Auto) 0.2 10^3/uL (0.0-1.0) 10/25/19 07: Eos # (Auto) 0.0 10^3/uL (0.0-0.7) 10/25/19 07: Baso # (Auto) 0.0 10^3/uL (0.0-0.1) 10/25/19 07: Absolute Nucleated RBC 0.00 x10^3/uL 10/25/19 07: Nucleated RBC % 0.0 /100WBC 10/25/19 07: Sodium 131 mmol/L (135-145) L 10/25/19 07: Potassium 4.8 mmol/L (3.5-5.0) 10/25/19 07: Chloride 92 mmol/L (101-111) L 10/25/19 07:31 Carbon Dioxide 28 mmol/L (21-32) 10/25/19 07:31 Anion Gap 11.0 (6-13) 10/25/19 07:31 BUN 16 mg/dL (6-20) 10/25/19 07:31 Creatinine 0.6 mg/dL (0.4-1.0) 10/25/19 07:31 Estimated GFR (MDRD) 100 (>89) 10/25/19 07:31 Glucose 131 mg/dL (70-100) H 10/25/19 07:31 Lactic Acid 1.4 mmol/L (0.5-2.2) 10/23/19 12:10 Calcium 8.8 mg/dL (8.5-10.3) 10/25/19 07:31 Magnesium 2.1 mg/dL (1.7-2.8) 10/24/19 04:50 Total Bilirubin 1.3 mg/dL (0.2-1.0) H 10/23/19 12:10 AST 20 IU/L (10-42) 10/23/19 12:10 ALT 22 IU/L (10-60) 10/23/19 12:10 Alkaline Phosphatase 77 IU/L (42-121) 10/23/19 12:10 Troponin I High Sens 17.1 ng/L (2.3-14.8) H* 10/23/19 15:49 B-Natriuretic Peptide 396 pg/mL (5-100) H 10/24/19 04:50 Total Protein 5.9 g/dL (6.7-8.2) L 10/23/19 12:10 Albumin 3.6 g/dL (3.2-5.5) 10/23/19 12:10 Globulin 2.3 g/dL (2.1-4.2) 10/23/19 12:10 Albumin/Globulin Ratio 1.6 (1.0-2.2) 10/23/19 12:10 Lipase 20 U/L (22-51) L 10/23/19 12:10 Urine Color YELLOW 10/23/19 13:30 Urine Clarity CLEAR (CLEAR) 10/23/19 13:30 Urine pH 6.0 PH (5.0-7.5) 10/23/19 13:30 Ur Specific [place] 1.010 (1.002-1.030) 10/23/19 13:30 Urine Protein NEGATIVE mg/dL (NEGATIVE) 10/23/19 13:30 Urine Glucose (UA) NEGATIVE mg/dL (NEGATIVE) 10/23/19 13:30 Urine Ketones NEGATIVE mg/dL (NEGATIVE) 10/23/19 13:30 Urine Occult Blood NEGATIVE (NEGATIVE) 10/23/19 13:30 Urine Nitrite NEGATIVE (NEGATIVE) 10/23/19 13:30 Urine Bilirubin NEGATIVE (NEGATIVE) 10/23/19 13:30 Urine Urobilinogen 0.2 (NORMAL) E.U./dL (NORMAL) 10/23/19 13:30 Ur Leukocyte Esterase NEGATIVE (NEGATIVE) 10/23/19 13:30 Ur Microscopic Review NOT INDICATED 10/23/19 13:30 Urine Culture Comments NOT INDICATED 10/23/19 13:30 Coronavirus (PCR) NEGATIVE 10/23/19 15:45 - Procedures Procedures: Procedures ASSIST W CARDIAC OUTPUT W PULS COMPRESSION, CONTINUOUS (07/13/15) ASSISTANCE WITH RESPIRATORY VENTILATION, 24-96 HRS, CPAP (07/13/15) DRAINAGE OF R PLEURAL CAV WITH DRAIN DEV, PERC APPROACH (07/13/15) EXCISION OF LIVER, OPEN APPROACH, DIAGNOSTIC (10/03/17) INSERTION OF ENDOTRACHEAL AIRWAY INTO TRACHEA, VIA OPENING (07/13/15) INSERTION OF INFUSION DEV INTO SUP VENA CAVA, PERC APPROACH (07/13/15) INSPECTION OF UPPER INTESTINAL TRACT, ENDO (01/21/18) INTRODUCTION OF NUTRITIONAL INTO CENTRAL VEIN, PERC APPROACH (07/13/15) MONITORING OF VENOUS PRESSURE, CENTRAL, PERC APPROACH (07/13/15) REPAIR LEFT INGUINAL REGION, OPEN APPROACH (10/03/17) RESECTION OF APPENDIX, OPEN APPROACH (07/13/15) RESECTION OF BILATERAL FALLOPIAN TUBES, OPEN APPROACH (10/03/17) RESECTION OF BILATERAL OVARIES, OPEN APPROACH (10/03/17) RESECTION OF UTERUS, OPEN APPROACH (10/03/17) RESPIRATORY VENTILATION, 24-96 CONSECUTIVE HOURS (07/13/15) TRANSFUSE NONAUT RED BLOOD CELLS IN PERIPH VEIN, PERC (01/21/18)
[2019-10-25] MEDS: guaiFENesin 100 MG/5 ML UDC PO PRN (19:56)
[2019-10-25] MEDS: ZOLPIDEM 5 MG TABLET PO PRN (23:04)
[2019-10-26] MEDS: SODIUM CHLORIDE FLUSH 0.9% 10 ML SYRINGE IVP SCH ×3 (01:34→15:35)
[2019-10-26] MEDS: LORazepam 1 MG TABLET PO SCH ×3 (03:14→15:35)
[2019-10-26] MEDS: ACETAMINOPHEN 325 MG TABLET PO PRN ×3 (04:43→20:44)
[2019-10-26] MEDS: BENZOCAINE/MENTHOL LOZENGE MM PRN (04:46)
[2019-10-26 05:48] LABS: HGB - HEMOGLOBIN 14.5 g/dL (12.0-16.0); LYMPHOCYTES # (AUTO) 0.2 10^3/uL (1.5-3.5); MEAN CORPUSCULAR HEMOGLOBIN 27.2 pg (27.0-31.0); MEAN CORPUSCULAR HGB CONC 29.1 g/dL (32.0-36.0); MEAN CORPUSCULAR VOLUME 93.3 fL (81.0-99.0); MONOCYTES # (AUTO) 0.1 10^3/uL (0.0-1.0); MONOCYTES % (AUTO) 1.9 %; NEUTROPHILS # (AUTO) 7.1 10^3/uL (1.5-6.6); NEUTROPHILS % (AUTO) 94.7 %; PLT - PLATELET COUNT 371 10^3/uL (130-450); RED BLOOD COUNT 5.34 10^6/uL (4.20-5.40); RED CELL DISTRIBUTION WIDTH 15.1 % (12.0-15.0); WHITE BLOOD COUNT 7.5 x10^3/uL (4.8-10.8)
[2019-10-26 05:51] LABS: CALCIUM 8.8 mg/dL (8.5-10.3); CREATININE 0.9 mg/dL (0.4-1.0)
[2019-10-26] MEDS: methylPREDNISolone SUCCINATE 125 MG/2 ML VIAL IVP SCH ×2 (06:15→13:47)
[2019-10-26] MEDS: BUDESONIDE 0.5 MG/2 ML NEB INH SCH (07:45)
[2019-10-26] MEDS: IPRATROPIUM/ALBUTEROL 3 ML NEB INH SCH ×5 (07:45→20:56)
[2019-10-26] MEDS: cefTRIAXone 2 GM in SODIUM CHLORIDE 0.9% MINIBAG 100 ML IV SCH (08:36)
[2019-10-26] MEDS: MONTELUKAST 10 MG TABLET PO SCH (08:37)
[2019-10-26] MEDS: FAMOTIDINE 20 MG TABLET PO SCH ×2 (08:37→20:44)
[2019-10-26] MEDS: METOPROLOL SUCCINATE 25 MG TABLET PO SCH ×2 (08:38→20:45)
[2019-10-26] MEDS: guaiFENesin 600 MG TABLET PO SCH ×2 (08:38→20:44)
[2019-10-26] MEDS: GABAPENTIN 100 MG CAPSULE PO SCH ×4 (08:38→20:44)
[2019-10-26] MEDS: ONDANSETRON 4 MG/2 ML VIAL IVP PRN (08:39)
[2019-10-26] MEDS: ASPIRIN EC 81 MG TABLET PO SCH (08:39)
[2019-10-26] MEDS: ASCORBIC ACID CHEW 500 MG TABLET PO SCH (08:39)
[2019-10-26] MEDS: SENNA 8.6 MG TABLET PO SCH (08:39)
[2019-10-26] MEDS: polyethylene glycoL 3350 17 GM PACKET PO SCH (08:39)
[2019-10-26] MEDS: AZITHROMYCIN 250 MG TABLET PO SCH (08:39)
[2019-10-26] MEDS: CHOLECALCIFEROL 400 UNIT TABLET PO SCH (08:39)
[2019-10-26] MEDS: DOCUSATE SODIUM 250 MG CAPSULE PO SCH (08:39)
[2019-10-26] MEDS: diltiaZEM CD 240 MG CAPSULE PO SCH (11:07)
--- NOTE | 2019-10-26 15:47 | PROVIDER PROGRESS NOTE ---
Assessment/Plan - Problem List (1) Confusion Assessment/Plan: When I told the patient her culture results (that no specific bacteria were identified), the patient responded "you need to give me bacteria". When the RT performed chest PT, the RT noted that the patient was forgetful, compared to how she was yesterday (The RT reported that the patient could not remember taking off her oxygen tubing and repeatedly stated that she did not feel well but cannot describe more). Will order a stat head CT to rule out stroke. Will stop sedatives: Ambien was ordered as needed for sleep which usually does not get. Ativan IV was ordered at 0300 for unknown reason, which will be stopped. Her med reconciliation list showed 3 times daily benzodiazepine but she requested it 4 times daily on the first day of admission, I will decrease it back to 3 times daily. Sodium is dropped to 129 today, this could be an additional factor adding to confusion. Will give 1 L of IV saline. Follow BMP. (2) Nausea Assessment/Plan: Patient awoke at 4 AM with nausea, needed an antiemetic, felt better and was able to sleep from 4 AM to 7 AM. At 7 AM she took her diet and then again deve loped nausea and vague abdominal pain. This is similar to what she has described to me in the past, part of the repeat abdominal pain that she gets depending on "if she overeats" for the past 3 years. She was unable to do fine abdominal pain however (confusion was already noted). Continue with antiemetics PRN. Will have nutrition consult see her since she herself said she usually only eats 1 meal a day and maybe she is overeating here and "backing herself up". (3) Atrial fibrillation with RVR Assessment/Plan: Heart rate was below 100 this morning therefore Cardizem 60 every 6 will be stopped and Cardizem CD will be resumed at her home dose. She is also on new metoprolol succinate 12.5 twice daily which is helping the dose. When she is agitated, in pain, nauseated the heart rate rises to about 110 however. Continue with aspirin as her stroke prophylaxis management. (4) COPD exacerbation Assessment/Plan: She feels like she cannot bring up her sputum although at least the cough is loosening. We will order chest PT. She did get 1 treatment of chest PT and felt better with this and also tolerated and oxygenation was good. Continue with nebs, she does not want the Pulmicort however. Sinew with Robitussin as needed and Mucinex scheduled. Continue with the new Singulair at night. Continue with IV steroids, no titrate down yet because of diffuse wheezing. She would agree to home oxygen on this admission, unlike the last admission June 2019. (5) Community acquired pneumonia Assessment/Plan: The sputum culture grew normal upper respiratory will, no pathogen specifically were identified. We will complete a course of Zithromax 1500 mg total dose and several more days of cephalosporin. (6) CHF (congestive heart failure) Assessment/Plan: The EF from the echo done on this admission, is newly mildly depressed at 50%. That is why the metoprolol was started during this admission. She also received no IV fluids but also no Lasix because she was euvolemic clinically. Continue daily aspirin (7) Cor pulmonale Assessment/Plan: Euvolemic by exam with no leg edema, therefore no Lasix but also no IV fluids are being administered (8) Chronic pain Assessment/Plan: Mostly she has abdominal pain but also back pain from kyphoscoliosis. Management for abdominal pain is with antiemetics and to laying a certain position when she eats and to not "overeat" which she has been doing while here because she likes the taste of the food. Her back pain is controlled with current pain meds. - Current Meds Current Meds: Current Medications Generic Name Dose Route Start Last Admin Trade Name Freq PRN Reason Stop Dose Admin Acetaminophen 650 mg 10/23/19 14:59 10/26/19 15:35 Tylenol PO 650 mg Q4HR PRN Administration Pain or Fever > 38C (100.4F) Albuterol 2.5 mg 10/23/19 18:25 10/25/19 03:07 INH 2.5 mg RTQ4H PRN Administration Wheezing Albuterol/Ipratropium 3 ml 10/23/19 21:00 10/26/19 12:50 Duoneb INH 3 ml RTQID MATTHEW Administration Ascorbic Acid 500 mg 10/24/19 09:00 10/26/19 08:39 Vitamin C PO 500 mg DAILY MATTHEW Administration Aspirin 81 mg 10/23/19 18:00 10/26/19 08:39 Ecotrin PO 81 mg DAILY MATTHEW Administration Azithromycin 250 mg 10/24/19 09:00 10/26/19 08:39 Zithromax PO 10/28/19 00:00 250 mg DAILY MATTHEW Administration Budesonide 0.5 mg 10/24/19 07:00 10/26/19 07:45 Pulmicort INH 0.5 mg RTBID MATTHEW Administration Cholecalciferol 800 unit 10/24/19 09:00 10/26/19 08:39 Vitamin D3 PO 800 unit DAILY MATTHEW Administration Diltiazem HCl 240 mg 10/26/19 10:00 10/26/19 11:07 Cardizem Cd PO 240 mg DAILY MATTHEW Administration Docusate Sodium 250 - 500 mg 10/24/19 11:00 10/26/19 08:39 Colace 250mg Capsule PO Not Given DAILY MATTHEW Famotidine 20 mg 10/23/19 21:00 10/26/19 08:37 Pepcid PO 20 mg BID MATTHEW Administration Gabapentin 100 mg 10/23/19 17:00 10/26/19 13:47 Neurontin PO 100 mg QID MATTHEW Administration Guaifenesin 600 mg 10/24/19 09:00 10/26/19 08:38 Mucinex PO 600 mg BID MATTHEW Administration Guaifenesin 100 mg 10/25/19 15:51 10/25/19 19:56 Robitussin Liquid PO 100 mg Q6HR PRN Administration Cough Ceftriaxone Sodium 2 gm/ 100 mls @ 200 mls/hr 10/24/19 10:30 10/26/19 10:38 Sodium Chloride IV 10/27/19 09:29 Infused DAILY MATTHEW Infusion Lorazepam 1 mg 10/25/19 03:00 10/26/19 15:35 Ativan PO 1 mg Q6H MATTHEW Administration Methylprednisolone Sodium Succinate 80 mg 10/23/19 22:00 10/26/19 13:47 Solu-Medrol (125mg Vial) IVP 80 mg Q8H MATTHEW Administration Metoprolol Succinate 12.5 mg 10/24/19 21:00 10/26/19 08:38 Toprol Xl PO 12.5 mg BID MATTHEW Administration Montelukast Sodium 10 mg 10/24/19 09:00 10/26/19 08:37 Singulair PO 10 mg DAILY MATTHEW Administration Ondansetron HCl 4 mg 10/23/19 14:59 10/26/19 08:39 Zofran Inj IVP 4 mg Q6HR PRN Administration Nausea / Vomiting Polyethylene Glycol 17 gm 10/24/19 16:09 10/26/19 08:39 Miralax PO Not Given DAILY MATTHEW Senna 8.6 - 17.2 mg 10/24/19 11:00 10/26/19 08:39 Senokot PO Not Given DAILY MATTHEW Sodium Chloride 10 ml 10/23/19 14:59 10/25/19 23:05 Normal Saline Flush 0.9% IVP 10 ml PRN PRN Administration NEEDED PER PROVIDER ORDERS Sodium Chloride 10 ml 10/23/19 17:00 10/26/19 15:35 Normal Saline Flush 0.9% IVP 10 ml 0100,0900,1700 MATTHEW Administration Throat Lozenges 1 lozenge 10/25/19 02:33 10/26/19 04:46 Cepacol MM 1 lozenge Q2HR PRN Administration Throat pain Zolpidem Tartrate 2.5 mg 10/23/19 20:00 10/25/19 23:04 Ambien PO 2.5 mg QPM PRN Administration Insomnia - Lab Result Fish Bone Diagrams: 10/26/19 05:10 10/26/19 05:10 - Additional Planning My Orders: My Active Orders 10/25/19 15:51 [email or web address] LIQUID [Robitussin Liquid] 100 mg PO Q6HR PRN 10/26/19 10:00 [email or web address] CD [Cardizem Cd] 240 mg PO DAILY 10/26/19 13:40 CPT [CPT - Chest Physical Therapy] [RC] .TID Subjective - Subjective Patient Reports: Other ("I am nauseated because I have abdominal pain and it is making me scared". "I do not want to go home because I feel bad") Objective Vital Signs: Vital Signs - 24 hr 10/25/19 10/25/19 10/25/19 17:00 18:17 18:19 Temperature 36.3 C L Heart Rate Heart Rate [ 96 Brachial] Heart Rate [ 110 H Monitoring electrodes] Respiratory 20 Rate Blood Pressure 109/83 H Blood Pressure 107/72 109/83 H [Right Brachial artery] O2 Saturation 94 10/25/19 10/25/19 10/25/19 19:05 19:36 20:15 Temperature 36.7 C Heart Rate 94 Heart Rate [ 106 H Brachial] Heart Rate [ 111 H Monitoring electrodes] Respiratory 18 20 Rate Blood Pressure Blood Pressure 114/88 H 114/89 H [Right Brachial artery] O2 Saturation 96 10/25/19 10/26/19 10/26/19 23:02 04:40 06:16 Temperature 36.4 C L 36.5 C Heart Rate Heart Rate [ Brachial] Heart Rate [ 93 108 H Monitoring electrodes] Respiratory 17 18 Rate Blood Pressure 117/87 H Blood Pressure 109/79 117/87 H [Right Brachial artery] O2 Saturation 98 93 10/26/19 10/26/19 10/26/19 07:45 08:10 12:50 Temperature 36.7 C Heart Rate 90 115 H Heart Rate [ Brachial] Heart Rate [ 96 Monitoring electrodes] Respiratory 20 20 20 Rate Blood Pressure Blood Pressure 103/77 [Right Brachial artery] O2 Saturation 94 10/26/19 10/26/19 13:00 15:29 Temperature 36.7 C 36.6 C Heart Rate Heart Rate [ Brachial] Heart Rate [ 112 H 96 Monitoring electrodes] Respiratory 18 20 Rate Blood Pressure Blood Pressure 108/82 H 109/85 H [Right Brachial artery] O2 Saturation 95 93 Oxygen O2 Source Nasal cannula Oxygen Flow Rate 2 I&O (Last 24 Hrs): Intake and Output Totals x24h 10/24/19 10/25/19 10/26/19 23:59 23:59 23:59 Intake Total 1240 300 440 Balance 1240 300 440 General: Alert, Oriented x3 HEENT: Mucous membr. moist/pink, Other (Nares appear red and irritated, her eyes are red like she was crying. He is wearing nasal cannula oxygen. Skin remains very leathery and wrinkled.) Neck: Supple, No JVD Neuro: Alert, Non Focal, Other (Confused) Cardiovascular: No murmurs, Other (Irreg irreg) Respiratory: Other (Diffuse wheezes and diminished at bases) Abdomen: Normal bowel sounds, Soft, No tenderness Extremities: No edema - Results Results: Laboratory Results WBC 7.5 x10^3/uL (4.8-10.8) 10/26/19 05:10 RBC 5.34 10^6/uL (4.20-5.40) 10/26/19 05:10 Hgb 14.5 g/dL (12.0-16.0) 10/26/19 05:10 Hct 49.8 % (37.0-47.0) H 10/26/19 05:10 MCV 93.3 fL (81.0-99.0) 10/26/19 05:10 MCH 27.2 pg (27.0-31.0) 10/26/19 05:10 MCHC 29.1 g/dL (32.0-36.0) L 10/26/19 05:10 RDW 15.1 % (12.0-15.0) H 10/26/19 05:10 Plt Count 371 10^3/uL (130-450) 10/26/19 05:10 MPV 9.0 fL (7.9-10.8) 10/26/19 05:10 Neut # (Auto) 7.1 10^3/uL (1.5-6.6) H 10/26/19 05:10 Lymph # (Auto) 0.2 10^3/uL (1.5-3.5) L 10/26/19 05:10 Miller # (Auto) 0.1 10^3/uL (0.0-1.0) 10/26/19 05:10 Eos # (Auto) 0.0 10^3/uL (0.0-0.7) 10/26/19 05:10 Baso # (Auto) 0.0 10^3/uL (0.0-0.1) 10/26/19 05:10 Absolute Nucleated RBC 0.04 x10^3/uL 10/26/19 05:10 Nucleated RBC % 0.5 /100WBC 10/26/19 05:10 Sodium 129 mmol/L (135-145) L 10/26/19 05:10 Potassium 5.1 mmol/L (3.5-5.0) H 10/26/19 05:10 Chloride 89 mmol/L (101-111) L 10/26/19 05:10 Carbon Dioxide 28 mmol/L (21-32) 10/26/19 05:10 Anion Gap 12.0 (6-13) 10/26/19 05:10 BUN 25 mg/dL (6-20) H 10/26/19 05:10 Creatinine 0.9 mg/dL (0.4-1.0) 10/26/19 05:10 Estimated GFR (MDRD) 63 (>89) L 10/26/19 05:10 Glucose 142 mg/dL (70-100) H 10/26/19 05:10 Lactic Acid 1.4 mmol/L (0.5-2.2) 10/23/19 12:10 Calcium 8.8 mg/dL (8.5-10.3) 10/26/19 05:10 Magnesium 2.1 mg/dL (1.7-2.8) 10/24/19 04:50 Total Bilirubin 1.3 mg/dL (0.2-1.0) H 10/23/19 12:10 AST 20 IU/L (10-42) 10/23/19 12:10 ALT 22 IU/L (10-60) 10/23/19 12:10 Alkaline Phosphatase 77 IU/L (42-121) 10/23/19 12:10 Troponin I High Sens 17.1 ng/L (2.3-14.8) H* 10/23/19 15:49 B-Natriuretic Peptide 396 pg/mL (5-100) H 10/24/19 04:50 Total Protein 5.9 g/dL (6.7-8.2) L 10/23/19 12:10 Albumin 3.6 g/dL (3.2-5.5) 10/23/19 12:10 Globulin 2.3 g/dL (2.1-4.2) 10/23/19 12:10 Albumin/Globulin Ratio 1.6 (1.0-2.2) 10/23/19 12:10 Lipase 20 U/L (22-51) L 10/23/19 12:10 Urine Color YELLOW 10/23/19 13:30 Urine Clarity CLEAR (CLEAR) 10/23/19 13:30 Urine pH 6.0 PH (5.0-7.5) 10/23/19 13:30 Ur Specific [place] 1.010 (1.002-1.030) 10/23/19 13:30 Urine Protein NEGATIVE mg/dL (NEGATIVE) 10/23/19 13:30 Urine Glucose (UA) NEGATIVE mg/dL (NEGATIVE) 10/23/19 13:30 Urine Ketones NEGATIVE mg/dL (NEGATIVE) 10/23/19 13:30 Urine Occult Blood NEGATIVE (NEGATIVE) 10/23/19 13:30 Urine Nitrite NEGATIVE (NEGATIVE) 10/23/19 13:30 Urine Bilirubin NEGATIVE (NEGATIVE) 10/23/19 13:30 Urine Urobilinogen 0.2 (NORMAL) E.U./dL (NORMAL) 10/23/19 13:30 Ur Leukocyte Esterase NEGATIVE (NEGATIVE) 10/23/19 13:30 Ur Microscopic Review NOT INDICATED 10/23/19 13:30 Urine Culture Comments NOT INDICATED 10/23/19 13:30 Coronavirus (PCR) NEGATIVE 10/23/19 15:45 - Procedures Procedures: Procedures ASSIST W CARDIAC OUTPUT W PULS COMPRESSION, CONTINUOUS (07/13/15) ASSISTANCE WITH RESPIRATORY VENTILATION, 24-96 HRS, CPAP (07/13/15) DRAINAGE OF R PLEURAL CAV WITH DRAIN DEV, PERC APPROACH (07/13/15) EXCISION OF LIVER, OPEN APPROACH, DIAGNOSTIC (10/03/17) INSERTION OF ENDOTRACHEAL AIRWAY INTO TRACHEA, VIA OPENING (07/13/15) INSERTION OF INFUSION DEV INTO SUP VENA CAVA, PERC APPROACH (07/13/15) INSPECTION OF UPPER INTESTINAL TRACT, ENDO (01/21/18) INTRODUCTION OF NUTRITIONAL INTO CENTRAL VEIN, PERC APPROACH (07/13/15) MONITORING OF VENOUS PRESSURE, CENTRAL, PERC APPROACH (07/13/15) REPAIR LEFT INGUINAL REGION, OPEN APPROACH (10/03/17) RESECTION OF APPENDIX, OPEN APPROACH (07/13/15) RESECTION OF BILATERAL FALLOPIAN TUBES, OPEN APPROACH (10/03/17) RESECTION OF BILATERAL OVARIES, OPEN APPROACH (10/03/17) RESECTION OF UTERUS, OPEN APPROACH (10/03/17) RESPIRATORY VENTILATION, 24-96 CONSECUTIVE HOURS (07/13/15) TRANSFUSE NONAUT RED BLOOD CELLS IN PERIPH VEIN, PERC (01/21/18)
[2019-10-26] MEDS ORDERED: HALOPERIDOL 5 MG/ML VIAL IM ONE (18:53)
--- NOTE | 2019-10-26 20:31 | CT Report ---
Reason: New confusion Procedure Date: 10/26/2019 Accession Number: [id number] / [id number] Procedure: CT - Head W/O Stroke Protocol CPT Code: Addended Final Report FULL RESULT: EXAM: CT HEAD EXAM DATE: 10/26/2019 08:17 PM. CLINICAL HISTORY: 63-year-old presenting with sudden mood change and confusion. Evaluate for intracranial pathology. COMPARISON: None. TECHNIQUE: Multiaxial CT images were obtained from the foramen magnum to the vertex. Reformats: Sagittal and coronal. IV contrast: None. In accordance with CT protocol optimization, one or more of the following dose reduction techniques were utilized for this exam: automated exposure control, adjustment of mA and/or KV based on patient size, or use of iterative reconstructive technique. FINDINGS: Parenchyma: There is a questionable small to moderate region of white matter abnormality with loss of shin-white differentiation involving the right frontal lobe measuring at least 31 x 56 mm (series 3, image 23). No acute parenchymal hemorrhage, mass, or midline shift. Extraaxial Spaces: Normal for age. No subdural or epidural collections identified. Ventricles: Normal in size and position. Sinuses and Orbits: Changes of bilateral lens replacement. Bones: No evidence of fracture or calvarial defect. Other: Vascular calcifications of the cavernous and supraclinoid ICA segments. IMPRESSION: 1. There is a questionable small to moderate region of white matter abnormality involving the right frontal lobe that appears to measure at least 31 x 56 mm (series 3, image 23) that may represent acute to subacute infarct. Consider MR brain for further evaluation. ASPECTS: 8 right/10 left 2. No acute intracranial hemorrhage, mass, hydrocephalus, or midline shift. RADIA The critical test notification system was initiated by Dr. Deepak Dickerson at 08:30 PM on 10/26/2019. ADDENDUM: 10/26/19 20:37 The above critical test findings were discussed with Dr Griffin by Dr. Deepak Dickerson at 08:37 PM on 10/26/2019.
[2019-10-26] MEDS: NICOTINE 7 MG PATCH TOP SCH (20:45)
[2019-10-26] MEDS ORDERED: IOVERSOL 320 100 ML VIAL IVP ONE ×2 (21:35→22:11)
--- NOTE | 2019-10-26 22:29 | CT Report ---
Reason: altered mental status Procedure Date: 10/26/2019 Accession Number: [id number] / [id number] Procedure: CT - ANGIO HEAD W/WO CPT Code: Final Report FULL RESULT: EXAM: CT ANGIOGRAM HEAD AND NECK. CT SCAN HEAD WITH CONTRAST. EXAM DATE: 10/26/2019 10:09 PM. CLINICAL HISTORY: Altered mental status. COMPARISON: ANGIO NECK W 10/26/2019 9:52 PM. HEAD W/O STROKE PROTOCOL 10/26/2019 8:10 PM. TECHNIQUE: Routine axial helical CTA imaging was performed from the aortic arch through the [place] of [place]. Routine axial CT imaging of the head was performed following contrast administration. Reconstructions: Routine multiplanar 3D MIP reconstructions. IV contrast: OPTIRAY 320. NASCET Criteria are used for stenosis measurements. In accordance with CT protocol optimization, one or more of the following dose reduction techniques were utilized for this exam: automated exposure control, adjustment of mA and/or KV based on patient size, or use of iterative reconstructive technique. FINDINGS: There is no abnormal brain parenchymal enhancement. CT ANGIOGRAM EXTRACRANIAL CIRCULATION: Moderate calcified plaque is present at the aortic arch. However, there is no high-grade stenosis of the great vessel origins. Right Carotid: The common, internal, and external carotid arteries are patent. Normal calcified plaque is noted at the carotid bifurcation without hemodynamically significant stenosis. Left Carotid: The common, internal, and external carotid arteries are patent. Mild calcified plaque is present at the carotid bifurcation without hemodynamically significant stenosis. Vertebrals: Calcified plaque is present in the bilateral vertebral artery origins but no definite high-grade stenosis is seen. The vertebral arteries are codominant and demonstrate no hemodynamically significant stenoses in their cervical courses. CT ANGIOGRAM INTRACRANIAL CIRCULATION: The internal carotid arteries are patent from the superior cervical to the supraclinoid portions. Minimal calcified plaque is present in the bilateral carotid siphons without stenosis. The bilateral A1, A2, M1, M2 segments are patent. A normal caliber anterior communicating artery is present. In the posterior circulation, the bilateral V4 segments are patent. The bilateral PICAs are patent. The basilar artery is widely patent throughout its course to the terminus. There is normal contrast opacification in the superior cerebellar and posterior cerebral arteries. A small right posterior communicating artery is present. A left posterior communicating artery is not clearly seen. The dural venous sinuses are patent. Other: A right pleural effusion is partially seen. Mild emphysema changes are noted in the visualized upper lungs. Mild degenerative changes are present throughout the cervical spine. No acute abnormality is seen in the remaining soft tissues of the neck. IMPRESSION: 1. No abnormal brain parenchymal enhancement. 2. Patent dural venous sinuses. 3. Patent intracranial and extracranial arteries without evidence of aneurysm, AVM, or critical stenosis. 4. Partially visualized small right pleural effusion. RADIA The call report notification system was initiated by Dr. Medina Muñoz at 10:20 PM on 10/26/2019. The above call report findings were discussed with Dr. Griffin by Dr. Medina Muñoz at 10:25 PM on 10/26/2019.
[2019-10-27] MEDS: SODIUM CHLORIDE FLUSH 0.9% 10 ML SYRINGE IVP SCH ×3 (02:52→16:54)
[2019-10-27] MEDS ORDERED: HALOPERIDOL 5 MG/ML VIAL IM PRN (05:54)
[2019-10-27 06:11] LABS: BASOPHILS % (AUTO) 0.1 %; HGB - HEMOGLOBIN 14.2 g/dL (12.0-16.0); LYMPHOCYTES # (AUTO) 0.3 10^3/uL (1.5-3.5); LYMPHOCYTES % (AUTO) 3.8 %; MEAN CORPUSCULAR HEMOGLOBIN 28.2 pg (27.0-31.0); MEAN CORPUSCULAR HGB CONC 30.7 g/dL (32.0-36.0); MEAN CORPUSCULAR VOLUME 91.8 fL (81.0-99.0); MEAN PLATELET VOLUME 9.1 fL (7.9-10.8); MONOCYTES # (AUTO) 0.3 10^3/uL (0.0-1.0); MONOCYTES % (AUTO) 4.6 %; NEUTROPHILS # (AUTO) 6.8 10^3/uL (1.5-6.6); PLT - PLATELET COUNT 291 10^3/uL (130-450); RED BLOOD COUNT 5.03 10^6/uL (4.20-5.40); RED CELL DISTRIBUTION WIDTH 14.7 % (12.0-15.0); WHITE BLOOD COUNT 7.5 x10^3/uL (4.8-10.8)
[2019-10-27 06:18] LABS: CALCIUM 8.8 mg/dL (8.5-10.3)
[2019-10-27] MEDS: IPRATROPIUM/ALBUTEROL 3 ML NEB INH SCH ×4 (08:46→19:40)
--- NOTE | 2019-10-27 09:21 | XRAY Report ---
Reason: dyspnea, hypoxia Procedure Date: 10/27/2019 Accession Number: [id number] / [id number] Procedure: XR - Chest 1 View X-Ray CPT Code: 88874 Final Report FULL RESULT: EXAM: CHEST RADIOGRAPHY EXAM DATE: 10/27/2019 09:08 AM. CLINICAL HISTORY: Dyspnea, hypoxia. COMPARISON: 10/23/2019. TECHNIQUE: 1 view. FINDINGS: Lungs/Pleura: Increased irregular bibasilar opacities with mild blunting of the costophrenic sulci, right greater than left. Stable central vascular prominence. No pneumothorax. Mediastinum: Accentuated by kyphotic positioning. Grossly stable cardiomegaly and tortuous calcified aorta. Bones: Unchanged. No acute fracture identified. IMPRESSION: 1. Increasing bibasilar atelectasis or infiltrates and small pleural effusions. 2. Stable cardiomegaly and vascular congestion. RADIA
[2019-10-27] MEDS: DOCUSATE SODIUM 250 MG CAPSULE PO SCH (10:08)
[2019-10-27] MEDS: ASPIRIN EC 81 MG TABLET PO SCH (10:08)
[2019-10-27] MEDS: GABAPENTIN 100 MG CAPSULE PO SCH ×4 (10:09→20:23)
[2019-10-27] MEDS: AZITHROMYCIN 250 MG TABLET PO SCH (10:09)
[2019-10-27] MEDS: CHOLECALCIFEROL 400 UNIT TABLET PO SCH (10:09)
[2019-10-27] MEDS: diltiaZEM CD 240 MG CAPSULE PO SCH (10:09)
[2019-10-27] MEDS: FAMOTIDINE 20 MG TABLET PO SCH ×2 (10:10→20:24)
[2019-10-27] MEDS: METOPROLOL SUCCINATE 25 MG TABLET PO SCH ×2 (10:10→20:23)
[2019-10-27] MEDS: ASCORBIC ACID CHEW 500 MG TABLET PO SCH (10:10)
[2019-10-27] MEDS: guaiFENesin 600 MG TABLET PO SCH ×2 (10:10→20:16)
[2019-10-27] MEDS: SENNA 8.6 MG TABLET PO SCH (10:10)
[2019-10-27] MEDS: NICOTINE 7 MG PATCH TOP SCH (10:11)
[2019-10-27] MEDS: polyethylene glycoL 3350 17 GM PACKET PO SCH (10:12)
[2019-10-27] MEDS: cefTRIAXone 2 GM in SODIUM CHLORIDE 0.9% MINIBAG 100 ML IV SCH (10:12)
[2019-10-27] MEDS: MONTELUKAST 10 MG TABLET PO SCH ×2 (10:21→10:25)
[2019-10-27] MEDS: ACETAMINOPHEN 325 MG TABLET PO PRN (10:35)
[2019-10-27] MEDS: LORazepam 1 MG TABLET PO SCH ×3 (11:11→20:24)
--- NOTE | 2019-10-27 13:42 | PROVIDER PROGRESS NOTE ---
Assessment/Plan - Problem List (1) Acute CVA (cerebrovascular accident) Assessment/Plan: Yesterday the patient had worsening confusion then was agitated, disoriented, had ataxic gait. She required IM Haldol, did finally agree to a head CT for work-up of a stroke. She has similar confusion and belligerent behavior today. She called her son on cell phone and told him that there were " police here" as well as a "fat nurse grabbing her and holding her down". The son then called me and I gave him an update of last evening's events and the stroke work-up thus far. The CT scan of the head done yesterday did show findings of a subacute R-sided frontal stroke. There was also a CTA of brain and neck that did not show any occlusions, there is some atherosclerosis seen, the carotids were visualized. She already had an Echo this admission (because of the Afib Dx), that did not show an intracardiac clot. I called [facility] today to discuss the entire case. Spoke to Dr. Madrid of Neurology who looked at the CT images that were pushed by radiology. His impression is that this is a small stroke. He reported that usually these people have good recovery back to their usual level of function, with recovery of memory and personality. With the stroke, she is by definition an aspirin failure, she does need to be on anticoagulants, he said, especially since that is a small stroke. Will start Eliquis twice daily today, stop aspirin. Dr Madrid also advised a statin. Will start Lipitor and check a fasting lip[id panel in a.m. I spoke to her son Mark this morning regarding this event and will give him more follow-up as well. He is the closest next-of-kin. (2) Confusion Assessment/Plan: There is a definite change in her personality and memory and orientation yesterday and today. This is likely related to the location of the stroke. As per the neurology recommendations and discussion over the phone, this will hopefully improve. Speech therapy (memory care and management) are what was advised by the neurologist. This was related to the son during the phone call. (3) Atrial fibrillation with RVR Assessment/Plan: Her heart rate is mostly controlled when she is not agitated on her home dose of Cardizem CD plus new metoprolol started this admission. She was on no anticoagulants or antiplatelet agents at home despite a history of paroxysmal A. fib. She was started on aspirin daily here. Because of the acute stroke (see above), I discussed the case with [place] [facility], they reviewed the images and agreed that it was a stroke but a small 1 and that she basically failed aspirin and needs to be on anticoagulants. (4) Nausea Assessment/Plan: Resolved (5) COPD exacerbation Assessment/Plan: She has had good improvement, yesterday she was not dyspneic even when she was walking in the hallway. IV steroids were stopped yesterday because of worry for steroid psychosis. She has not had a exacerbation of her wheezing today. Will stay off the steroids now. She does not want Pulmicort so it was stopped. Continue treating the infection, Mucinex to continue, Robitussin was stopped. She needs an oxygen saturation test to be done on the day of discharge, because it was needed on the last admission and she refused home oxygen, but this time she is very much interested in getting oxygen after discharge. (6) Community acquired pneumonia Assessment/Plan: Sputum grew just respiratory will, nothing requiring altered antibiotics. Continue course of Zithromax to completion and ceftriaxone for 1 week. (7) CHF (congestive heart failure) Assessment/Plan: She does have some volume overload on imaging and an echo during this hospitalization showed a new slightly dropped EF to 50%. She did not have an RI by troponins. I suspect dropped EF was from having A. fib with RVR for a longer time than she knew about. Metoprolol was added starting this admission, for better rate control, In addition to her Cardizem CD home dose. (8) Cor pulmonale Assessment/Plan: As seen on Echo, and jostin related to her severe COPD plus suspected hypoxia (she refused home O2 in Jun 2019, despite desaturating) (9) Chronic pain Assessment/Plan: She has pain in her back from kyphoscoliosis which is mostly controlled. She also has chronic on and off abdominal pain for the last 3 years related to when she "overeats" (thus she only eats 1 meal a day at home) and she needs to be in a certain body position when she takes her diet (left lateral decubitus position). The abdominal pain has had extensive work-up according to her and no real etiology was found. - Current Meds Current Meds: Current Medications Generic Name Dose Route Start Last Admin Trade Name Freq PRN Reason Stop Dose Admin Acetaminophen 650 mg 10/23/19 14:59 10/27/19 10:35 Tylenol PO 650 mg Q4HR PRN Administration Pain or Fever > 38C (100.4F) Albuterol 2.5 mg 10/23/19 18:25 10/25/19 03:07 INH 2.5 mg RTQ4H PRN Administration Wheezing Albuterol/Ipratropium 3 ml 10/23/19 21:00 10/27/19 12:57 Duoneb INH 3 ml RTQID MATTHEW Administration Ascorbic Acid 500 mg 10/24/19 09:00 10/27/19 10:10 Vitamin C PO 500 mg DAILY MATTHEW Administration Aspirin 81 mg 10/23/19 18:00 10/27/19 10:08 Ecotrin PO 81 mg DAILY MATTHEW Administration Azithromycin 250 mg 10/24/19 09:00 10/27/19 10:09 Zithromax PO 10/28/19 00:00 250 mg DAILY MATTHEW Administration Cholecalciferol 800 unit 10/24/19 09:00 10/27/19 10:09 Vitamin D3 PO 800 unit DAILY MATTHEW Administration Diltiazem HCl 240 mg 10/26/19 10:00 10/27/19 10:09 Cardizem Cd PO 240 mg DAILY MATTHEW Administration Docusate Sodium 250 - 500 mg 10/24/19 11:00 10/27/19 10:08 Colace 250mg Capsule PO 250 mg DAILY MATTHEW Administration Famotidine 20 mg 10/23/19 21:00 10/27/19 10:10 Pepcid PO 20 mg BID MATTHEW Administration Gabapentin 100 mg 10/23/19 17:00 10/27/19 10:09 Neurontin PO 100 mg QID MATTHEW Administration Guaifenesin 600 mg 10/24/19 09:00 10/27/19 10:10 Mucinex PO 600 mg BID MATTHEW Administration Guaifenesin 100 mg 10/25/19 15:51 10/25/19 19:56 Robitussin Liquid PO 100 mg Q6HR PRN Administration Cough Lorazepam 1 mg 10/27/19 10:37 10/27/19 11:11 Ativan PO 1 mg TID MATTHEW Administration Metoprolol Succinate 12.5 mg 10/24/19 21:00 10/27/19 10:10 Toprol Xl PO 12.5 mg BID MATTHEW Administration Montelukast Sodium 10 mg 10/24/19 09:00 10/27/19 10:25 Singulair PO 10 mg DAILY MATTHEW Administration Nicotine 1 patch 10/26/19 19:34 10/27/19 10:11 Nicoderm TOP Not Given DAILY MATTHEW Ondansetron HCl 4 mg 10/23/19 14:59 10/26/19 08:39 Zofran Inj IVP 4 mg Q6HR PRN Administration Nausea / Vomiting Polyethylene Glycol 17 gm 10/24/19 16:09 10/27/19 10:12 Miralax PO 17 gm DAILY MATTHEW Administration Senna 8.6 - 17.2 mg 10/24/19 11:00 10/27/19 10:10 Senokot PO 8.6 mg DAILY MATTHEW Administration Sodium Chloride 10 ml 10/23/19 14:59 10/25/19 23:05 Normal Saline Flush 0.9% IVP 10 ml PRN PRN Administration NEEDED PER PROVIDER ORDERS Sodium Chloride 10 ml 10/23/19 17:00 10/27/19 10:11 Normal Saline Flush 0.9% IVP 10 ml 0100,0900,1700 MATTHEW Administration Throat Lozenges 1 lozenge 10/25/19 02:33 10/26/19 04:46 Cepacol MM 1 lozenge Q2HR PRN Administration Throat pain - Lab Result Fish Bone Diagrams: 10/27/19 06:05 10/27/19 06:05 - Additional Planning My Orders: My Active Orders 10/26/19 13:40 CPT [CPT - Chest Physical Therapy] [RC] .TID 10/27/[address] [ST] Routine Evaluate and Treat PT [PT] Routine 10/27/19 10:37 LORazepam [Ativan] 1 mg PO TID 10/27/19 21:00 Atorvastatin [Lipitor] 40 mg PO QPM 10/28/19 VITAMIN B12 [IAI] Routine 10/28/19 05:00 LIPID Panel [CHEM] DAILYLAB Subjective - Subjective Patient Reports: Other (Confused, picking at the air in front of her) Objective Vital Signs: Vital Signs - 24 hr 10/26/19 10/26/19 10/26/19 15:29 16:50 20:41 Temperature 36.6 C 36.4 C L Heart Rate 102 H Heart Rate [ Brachial] Heart Rate [ 96 112 H Monitoring electrodes] Respiratory 20 20 22 Rate Blood Pressure 109/85 H 108/88 H [Right Brachial artery] O2 Saturation 93 72 L 10/26/19 10/26/19 10/27/19 20:42 20:55 00:22 Temperature Heart Rate 77 Heart Rate [ Brachial] Heart Rate [ 108 H Monitoring electrodes] Respiratory 24 18 16 Rate Blood Pressure [Right Brachial artery] O2 Saturation 91 L 10/27/19 10/27/19 10/27/19 05:30 08:09 08:54 Temperature 36.5 C Heart Rate 100 Heart Rate [ 116 H Brachial] Heart Rate [ 108 H Monitoring electrodes] Respiratory 20 22 18 Rate Blood Pressure 124/76 [Right Brachial artery] O2 Saturation 94 95 10/27/19 10/27/19 12:01 12:57 Temperature 36.6 C Heart Rate 104 H Heart Rate [ Brachial] Heart Rate [ 110 H Monitoring electrodes] Respiratory 20 18 Rate Blood Pressure 134/78 H [Right Brachial artery] O2 Saturation 96 Oxygen O2 Source Nasal cannula Oxygen Flow Rate 2 I&O (Last 24 Hrs): Intake and Output Totals x24h 10/25/19 10/26/19 10/27/19 23:59 23:59 23:59 Intake Total 300 740 580 Balance 300 740 580 General: Alert HEENT: Mucous membr. moist/pink Neck: Supple Neuro: Disoriented Cardiovascular: No murmurs, Other (Irreg) Respiratory: No respiratory distress (per RN) Abdomen: Soft (per RN) Extremities: No edema - Results Results: Laboratory Results WBC 7.5 x10^3/uL (4.8-10.8) 10/27/19 06:05 RBC 5.03 10^6/uL (4.20-5.40) 10/27/19 06:05 Hgb 14.2 g/dL (12.0-16.0) 10/27/19 06:05 Hct 46.2 % (37.0-47.0) 10/27/19 06:05 MCV 91.8 fL (81.0-99.0) 10/27/19 06:05 MCH 28.2 pg (27.0-31.0) 10/27/19 06:05 MCHC 30.7 g/dL (32.0-36.0) L 10/27/19 06:05 RDW 14.7 % (12.0-15.0) 10/27/19 06:05 Plt Count 291 10^3/uL (130-450) 10/27/19 06:05 MPV 9.1 fL (7.9-10.8) 10/27/19 06:05 Neut # (Auto) 6.8 10^3/uL (1.5-6.6) H 10/27/19 06:05 Lymph # (Auto) 0.3 10^3/uL (1.5-3.5) L 10/27/19 06:05 Warren # (Auto) 0.3 10^3/uL (0.0-1.0) 10/27/19 06:05 Eos # (Auto) 0.0 10^3/uL (0.0-0.7) 10/27/19 06:05 Baso # (Auto) 0.0 10^3/uL (0.0-0.1) 10/27/19 06:05 Absolute Nucleated RBC 0.03 x10^3/uL 10/27/19 06:05 Nucleated RBC % 0.4 /100WBC 10/27/19 06:05 Sodium 128 mmol/L (135-145) L 10/27/19 06:05 Potassium 5.3 mmol/L (3.5-5.0) H 10/27/19 06:05 Chloride 89 mmol/L (101-111) L 10/27/19 06:05 Carbon Dioxide 30 mmol/L (21-32) 10/27/19 06:05 Anion Gap 9.0 (6-13) 10/27/19 06:05 BUN 31 mg/dL (6-20) H 10/27/19 06:05 Creatinine 1.0 mg/dL (0.4-1.0) 10/27/19 06:05 Estimated GFR (MDRD) 56 (>89) L 10/27/19 06:05 Glucose 131 mg/dL (70-100) H 10/27/19 06:05 Lactic Acid 1.4 mmol/L (0.5-2.2) 10/23/19 12:10 Calcium 8.8 mg/dL (8.5-10.3) 10/27/19 06:05 Magnesium 2.1 mg/dL (1.7-2.8) 10/24/19 04:50 Total Bilirubin 1.3 mg/dL (0.2-1.0) H 10/23/19 12:10 AST 20 IU/L (10-42) 10/23/19 12:10 ALT 22 IU/L (10-60) 10/23/19 12:10 Alkaline Phosphatase 77 IU/L (42-121) 10/23/19 12:10 Troponin I High Sens 17.1 ng/L (2.3-14.8) H* 10/23/19 15:49 B-Natriuretic Peptide 396 pg/mL (5-100) H 10/24/19 04:50 Total Protein 5.9 g/dL (6.7-8.2) L 10/23/19 12:10 Albumin 3.6 g/dL (3.2-5.5) 10/23/19 12:10 Globulin 2.3 g/dL (2.1-4.2) 10/23/19 12:10 Albumin/Globulin Ratio 1.6 (1.0-2.2) 10/23/19 12:10 Lipase 20 U/L (22-51) L 10/23/19 12:10 Urine Color YELLOW 10/23/19 13:30 Urine Clarity CLEAR (CLEAR) 10/23/19 13:30 Urine pH 6.0 PH (5.0-7.5) 10/23/19 13:30 Ur Specific [place] 1.010 (1.002-1.030) 10/23/19 13:30 Urine Protein NEGATIVE mg/dL (NEGATIVE) 10/23/19 13:30 Urine Glucose (UA) NEGATIVE mg/dL (NEGATIVE) 10/23/19 13:30 Urine Ketones NEGATIVE mg/dL (NEGATIVE) 10/23/19 13:30 Urine Occult Blood NEGATIVE (NEGATIVE) 10/23/19 13:30 Urine Nitrite NEGATIVE (NEGATIVE) 10/23/19 13:30 Urine Bilirubin NEGATIVE (NEGATIVE) 10/23/19 13:30 Urine Urobilinogen 0.2 (NORMAL) E.U./dL (NORMAL) 10/23/19 13:30 Ur Leukocyte Esterase NEGATIVE (NEGATIVE) 10/23/19 13:30 Ur Microscopic Review NOT INDICATED 10/23/19 13:30 Urine Culture Comments NOT INDICATED 10/23/19 13:30 Coronavirus (PCR) NEGATIVE 10/23/19 15:45 - Procedures Procedures: Procedures ASSIST W CARDIAC OUTPUT W PULS COMPRESSION, CONTINUOUS (07/13/15) ASSISTANCE WITH RESPIRATORY VENTILATION, 24-96 HRS, CPAP (07/13/15) DRAINAGE OF R PLEURAL CAV WITH DRAIN DEV, PERC APPROACH (07/13/15) EXCISION OF LIVER, OPEN APPROACH, DIAGNOSTIC (10/03/17) INSERTION OF ENDOTRACHEAL AIRWAY INTO TRACHEA, VIA OPENING (07/13/15) INSERTION OF INFUSION DEV INTO SUP VENA CAVA, PERC APPROACH (07/13/15) INSPECTION OF UPPER INTESTINAL TRACT, ENDO (01/21/18) INTRODUCTION OF NUTRITIONAL INTO CENTRAL VEIN, PERC APPROACH (07/13/15) MONITORING OF VENOUS PRESSURE, CENTRAL, PERC APPROACH (07/13/15) REPAIR LEFT INGUINAL REGION, OPEN APPROACH (10/03/17) RESECTION OF APPENDIX, OPEN APPROACH (07/13/15) RESECTION OF BILATERAL FALLOPIAN TUBES, OPEN APPROACH (10/03/17) RESECTION OF BILATERAL OVARIES, OPEN APPROACH (10/03/17) RESECTION OF UTERUS, OPEN APPROACH (10/03/17) RESPIRATORY VENTILATION, 24-96 CONSECUTIVE HOURS (07/13/15) TRANSFUSE NONAUT RED BLOOD CELLS IN PERIPH VEIN, PERC (01/21/18)
[2019-10-27] MEDS: guaiFENesin 100 MG/5 ML UDC PO PRN (14:13)
--- NOTE | 2019-10-27 16:57 | ADVANCE CARE PLANNING NOTE ---
Advance Care Planning - Planning Encounter Date: 10/27/19 Time: 16:45 Purpose: To update her son Mark, her closest next of kin, regarding her status and to determine his wishes about her medical care going forward, also who can be given out information (the patient has 2 close friends who assist her here locally, and are calling asking about her). Parties in Attendance: I spoke to the son by phone, outside of the patient's room. Decisional Capacity of the Patient: The patient has poor memory and is confused today, has been occasionally agitated and cannot make safe medical decisions about herself currently, which is related to the acute stroke that she had yesterday, as documented by testing. - Diagnosis for Encounter (1) Acute CVA (cerebrovascular accident) Summary: The patient had worsening confusion yesterday, and head CT imaging showed a right sided frontal stroke. The etiology mis probably related to her paroxysmal A. fib as she had not been on any anti-coagulants or antiplatelet agents for stroke prophylaxis. Since admission, she has been on daily aspirin, and had this event on her 3rd day of hospitalization. - Encounter Subjective/Patient's Story: This is a 63-year-old white female, heavy smoker who quit 3 years ago (the son informs me today that she still smokes intermittently when she is stressed), has a history of severe COPD, has frequent admissions here for COPD exacerbation, the last 1 showed desaturations into the 70% range and home oxygen was advised and she refused it. She also has been a DNR since she has described a terrible quality of life.She lives alone, has 2 girlfriends that help her. She has chronic back pain from kyphoscoliosis. She has chronic abdominal pain after undergoing abdominal surgery. She gets nauseated and early satiety unless she eats in the lateral decubitus position laying down. Objective/Medical Story: Patient was admitted with a COPD exacerbation, community-acquired pneumonia by chest x-ray infiltrate findings, tested COVID negative this admission, was also in A. fib with RVR, needed medications for rate control, she had been on no anticoagulant or antiplatelet, was started on daily aspirin on the day of admission. Her respiratory status has been improving and she was almost ready for discharge when yesterday she developed confusion then agitation and required work-up for stroke. The CT of the head imaging did reveal a frontal stroke. The etiology is probably the A. fib. Today Neurology was contacted and her medical management was adjusted to include anticoagulants, statin. She continues on nebulizers for COPD, the steroids were stopped because they could have been causing steroid psychosis, she requires her resumption of Ativan for anxiety. Goals of Care: The patient changed her CODE STATUS to full code during this admission and I reviewed that with the son by phone. The son agreed to her wishes which were to "be around for seeing his 4 year old daughter and for support of her own adult daughter who has high care needs and lives in a usp." The son Mark stated that he is the closest next of kin, and he needs to be told all medical updates, the 2 girlfriends are not cleared to get direct information from us. The son wanted the girlfriends to be told "they are not on the list of people who can get disclosure of information", but not to tell them that he denied their request for being contacted. He will make medical decisions for her going forward, especially if she needs SNF for stroke rehab. Plan: Continue with new POLST form indicating full code, ventilator use is okay, full aggressive medical management. I informed the supervisor hospitality house that only Mark is to get medical updates, not to 2 girlfriends who live close by. The son Mark should be contacted for all medical decisions; I will put in a social work consult so that they are aware of this because of her new diagnosis with new confusion and poor memory. Continue with management of her COPD, A. fib, pneumonia. Code Status: Attempt Resuscitation Time spent on advance care plannin min
[2019-10-27] MEDS: APIXABAN 5 MG TABLET PO SCH (20:18)
[2019-10-27] MEDS: ATORVASTATIN 40 MG TABLET PO SCH (20:24)
[2019-10-27] MEDS ORDERED: DILTIAZEM 50 MG/10 ML VIAL IVP STA (21:39)
[2019-10-28] MEDS ORDERED: METOPROLOL 5 MG/5 ML VIAL IVP STA (01:02)
[2019-10-28] MEDS: SODIUM CHLORIDE FLUSH 0.9% 10 ML SYRINGE IVP SCH ×3 (03:00→17:25)
[2019-10-28] MEDS: ACETAMINOPHEN 325 MG TABLET PO PRN (04:20)
[2019-10-28] MEDS: BENZOCAINE/MENTHOL LOZENGE MM PRN (04:24)
[2019-10-28] MEDS: guaiFENesin 100 MG/5 ML UDC PO PRN (04:24)
[2019-10-28] MEDS: LORazepam 1 MG TABLET PO SCH ×2 (05:50→13:11)
[2019-10-28 05:52] LABS: BASOPHILS % (AUTO) 0.2 %; EOSINOPHILS % (AUTO) 0.2 %; LYMPHOCYTES % (AUTO) 8.7 %; MEAN CORPUSCULAR HEMOGLOBIN 26.7 pg (27.0-31.0); MEAN CORPUSCULAR HGB CONC 28.9 g/dL (32.0-36.0); MEAN CORPUSCULAR VOLUME 92.4 fL (81.0-99.0); MEAN PLATELET VOLUME 9.4 fL (7.9-10.8); MONOCYTES # (AUTO) 1.1 10^3/uL (0.0-1.0); MONOCYTES % (AUTO) 9.7 %; NEUTROPHILS # (AUTO) 9.5 10^3/uL (1.5-6.6); NEUTROPHILS % (AUTO) 80.7 %; PLT - PLATELET COUNT 295 10^3/uL (130-450); RED BLOOD COUNT 5.25 10^6/uL (4.20-5.40); WHITE BLOOD COUNT 11.8 x10^3/uL (4.8-10.8)
[2019-10-28 06:16] LABS: RBC MORPHOLOGY (MULTIPLE) 1+ HYPOCHROMASIA (NORMAL)
[2019-10-28 06:17] LABS: PLATELET ESTIMATE, MANUAL NORMAL (130-450,000) (NORMAL); PLATELET MORPHOLOGY NORMAL APPEARANCE (NORMAL)
[2019-10-28] MEDS: IPRATROPIUM/ALBUTEROL 3 ML NEB INH SCH ×4 (07:30→19:42)
[2019-10-28 07:54] LABS: BUN - BLOOD UREA NITROGEN 30 mg/dL (6-20); CALCIUM 9.1 mg/dL (8.5-10.3); CARBON DIOXIDE - CO2 32 mmol/L (21-32); CHLORIDE 88 mmol/L (101-111); CHOL/HDL RATIO 3.1 (<4.4); CHOLESTEROL 214 mg/dL; CREATININE 0.8 mg/dL (0.4-1.0); GLUCOSE 92 mg/dL (70-100); HDL CHOLESTEROL 70 mg/dL; LDL CHOLESTEROL,CALCULATED 108 mg/dL; LDL/HDL RATIO 1.5 (<4.4); SODIUM 129 mmol/L (135-145); VLDL CHOLESTEROL 36 mg/dL
[2019-10-28] MEDS: SENNA 8.6 MG TABLET PO SCH (09:22)
[2019-10-28] MEDS: APIXABAN 5 MG TABLET PO SCH ×2 (09:22→21:25)
[2019-10-28] MEDS: CHOLECALCIFEROL 400 UNIT TABLET PO SCH (09:22)
[2019-10-28] MEDS: guaiFENesin 600 MG TABLET PO SCH ×2 (09:22→21:31)
[2019-10-28] MEDS: METOPROLOL SUCCINATE 25 MG TABLET PO SCH ×2 (09:22→21:24)
[2019-10-28] MEDS: diltiaZEM CD 240 MG CAPSULE PO SCH (09:24)
[2019-10-28] MEDS: ASCORBIC ACID CHEW 500 MG TABLET PO SCH (09:24)
[2019-10-28] MEDS: DOCUSATE SODIUM 250 MG CAPSULE PO SCH (09:24)
[2019-10-28] MEDS: GABAPENTIN 100 MG CAPSULE PO SCH ×4 (09:24→21:24)
[2019-10-28] MEDS: polyethylene glycoL 3350 17 GM PACKET PO SCH (09:25)
[2019-10-28] MEDS: NICOTINE 7 MG PATCH TOP SCH (09:25)
[2019-10-28] MEDS ORDERED: FUROSEMIDE 40 MG/4 ML VIAL IVP SCH (09:46)
[2019-10-28] MEDS: ONDANSETRON 4 MG/2 ML VIAL IVP PRN (11:13)
--- NOTE | 2019-10-28 15:17 | PROVIDER PROGRESS NOTE ---
Subjective - Prog Note Date Prog Note Date: 10/28/19 - Subjective Subjective: She remains confused at times. She was agitated this morning and declined her medications but later on in the day, she took them. She reports feeling terrible was not able to tell me why. She does endorse dyspnea. Current Medications - Current Medications Current Medications: Active Medications Acetaminophen (Tylenol) 650 mg PO Q4HR PRN PRN Reason: Pain or Fever > 38C (100.4F) Last Admin: 10/28/19 04:20 Dose: 650 mg Albuterol () 2.5 mg INH RTQ4H PRN PRN Reason: Wheezing Last Admin: 10/25/19 03:07 Dose: 2.5 mg Albuterol/Ipratropium (Duoneb) 3 ml INH RTQID [facility] Last Admin: 10/28/19 10:40 Dose: 3 ml Apixaban (Eliquis) 5 mg PO BID [facility] Last Admin: 10/28/19 09:22 Dose: 5 mg Ascorbic Acid (Vitamin C) 500 mg PO DAILY [facility] Last Admin: 10/28/19 09:24 Dose: 500 mg Atorvastatin Calcium (Lipitor) 40 mg PO QPM [facility] Last Admin: 10/27/19 20:24 Dose: 40 mg Cholecalciferol (Vitamin D3) 800 unit PO DAILY [facility] Last Admin: 10/28/19 09:22 Dose: 800 unit Diltiazem HCl (Cardizem Cd) 240 mg PO DAILY [facility] Last Admin: 10/28/19 09:24 Dose: 240 mg Docusate Sodium (Colace 250mg Capsule) 250 - 500 mg PO DAILY [facility] Last Admin: 10/28/19 09:24 Dose: 250 mg Gabapentin (Neurontin) 100 mg PO QID [facility] Last Admin: 10/28/19 13:11 Dose: 100 mg Guaifenesin (Mucinex) 600 mg PO BID [facility] Last Admin: 10/28/19 09:22 Dose: 600 mg Guaifenesin (Robitussin Liquid) 100 mg PO Q6HR PRN PRN Reason: Cough Last Admin: 10/28/19 04:24 Dose: 100 mg Metoprolol Succinate (Toprol Xl) 25 mg PO BID [facility] Last Admin: 10/28/19 09:22 Dose: 25 mg Mineral Oil (Mineral Oil Enema) 133 ml RC DAILY PRN PRN Reason: Constipation Montelukast Sodium (Singulair) 10 mg PO DAILY [facility] Last Admin: 10/27/19 10:25 Dose: 10 mg Nicotine (Nicoderm) 1 patch TOP DAILY [facility] Last Admin: 10/28/19 09:25 Dose: 1 patch Ondansetron HCl (Zofran Inj) 4 mg IVP Q6HR PRN PRN Reason: Nausea / Vomiting Last Admin: 10/28/19 11:13 Dose: 4 mg Polyethylene Glycol (Miralax) 17 gm PO DAILY [facility] Last Admin: 10/28/19 09:25 Dose: Not Given Senna (Senokot) 8.6 - 17.2 mg PO DAILY [facility] Last Admin: 10/28/19 09:22 Dose: 8.6 mg Sodium Biphosphate/Sodium Phosphate (Fleets Saline Enema) 133 ml RC DAILY PRN PRN Reason: Constipation Sodium Chloride (Normal Saline Flush 0.9%) 10 ml IVP PRN PRN PRN Reason: NEEDED PER PROVIDER ORDERS Last Admin: 10/25/19 23:05 Dose: 10 ml Sodium Chloride (Normal Saline Flush 0.9%) 10 ml IVP 0100,0900,1700 [facility] Last Admin: 10/28/19 09:26 Dose: 10 ml Throat Lozenges (Cepacol) 1 lozenge MM Q2HR PRN PRN Reason: Throat pain Last Admin: 10/28/19 04:24 Dose: 1 lozenge Ipratropium/Albuterol [Combivent Respimat] 1 puffs INH QID PRN 03/18/17 Albuterol 2.5 mg INH Q4H PRN 04/18/17 Fluticasone/Salmeterol [Advair 250-50 Diskus] 1 inh INH BID 06/18/19 Gabapentin 100 mg PO QID 06/18/19 LORazepam [Lorazepam] 1 mg PO TID PRN 06/18/19 diltiaZEM CD [Cardizem Cd] 240 mg PO DAILY 06/18/19 Ipratropium/Albuterol [Duoneb] 3 ml INH BID 10/23/19 Montelukast Sodium 10 mg PO DAILY 10/23/19 predniSONE [Deltasone] 10 mg PO DAILYWM 10/23/19 Objective - Vital Signs/Intake & Output Reviewed Vital Signs: Yes Vital Signs: Vital Signs x48h Temp Pulse Pulse Resp BP Pulse Ox 10/28/19 13:00 36.9 C 152 H 16 94 10/28/19 10:40 78 24 10/28/19 09:00 36.8 C 99 18 144/86 H 94 10/28/19 07:30 118 H 20 Intake & Output: Intake & Output 10/25/19 10/26/19 10/27/19 10/28/19 23:59 23:59 23:59 23:59 Intake Total 566 183 7182 200 Balance 936 271 4805 200 - Objective General Appearance: positive: Alert Eyes Bilateral: positive: Normal inspection ENT: positive: ENT inspection nml Neck: positive: Nml inspection Respiratory: positive: No respiratory distress, Other (Diminished breath sounds in the bases.) Cardiovascular: positive: Irregularly irregular, Systolic murmur. negative: Tachycardia, Bradycardia Abdomen: positive: Non-tender, No distention. negative: Tenderness Skin: positive: Warm, Dry Extremities: positive: Pedal edema (+2 pitting edema in bilateral lower extremities) Neurologic/Psychiatric: positive: Disoriented to time, Other (No focal deficits on exam. She is impulsive with a short attention span. Will yell out at staff intermittently/). negative: Disoriented to person, Disoriented to place - Lab Results Fish Bones: 10/28/19 05:39 10/28/19 07:29 Other Labs: Lab Results x24hrs 10/28/19 10/28/19 10/28/19 Range/Units 09:02 07:29 07:29 WBC (4.8-10.8) x10^3/uL RBC (4.20-5.40) 10^6/uL Hgb (12.0-16.0) g/dL Hct (37.0-47.0) % MCV (81.0-99.0) fL MCH (27.0-31.0) pg MCHC (32.0-36.0) g/dL RDW (12.0-15.0) % Plt Count (130-450) 10^3/uL MPV (7.9-10.8) fL Neut # (Auto) (1.5-6.6) 10^3/uL Lymph # (Auto) (1.5-3.5) 10^3/uL Harney # (Auto) (0.0-1.0) 10^3/uL Eos # (Auto) (0.0-0.7) 10^3/uL Baso # (Auto) (0.0-0.1) 10^3/uL Absolute Nucleated RBC x10^3/uL Nucleated RBC % /100WBC Manual Slide Review WBC Morphology (NORMAL) Platelet Estimate (NORMAL) Platelet Morphology (NORMAL) RBC Morph Micro Appear (NORMAL) Sodium 129 L (135-145) mmol/L Potassium 5.1 H (3.5-5.0) mmol/L Chloride 88 L (101-111) mmol/L Carbon Dioxide 32 (21-32) mmol/L Anion Gap 9.0 (6-13) BUN 30 H (6-20) mg/dL Creatinine 0.8 (0.4-1.0) mg/dL Estimated GFR (MDRD) 72 L (>89) Glucose 92 (70-100) mg/dL Calcium 9.1 (8.5-10.3) mg/dL B-Natriuretic Peptide 647 H (5-100) pg/mL Triglycerides 179 H Cholesterol 214 H LDL Cholesterol, Calc 108 VLDL Cholesterol 36 HDL Cholesterol 70 LDL/HDL Ratio 1.5 Cholesterol/HDL Ratio 3.1 Vitamin B12 550 (180-914) pg/mL 10/28/19 10/28/19 Range/Units 05:39 05:39 WBC 11.8 H (4.8-10.8) x10^3/uL RBC 5.25 (4.20-5.40) 10^6/uL Hgb 14.0 (12.0-16.0) g/dL Hct 48.5 H (37.0-47.0) % MCV 92.4 (81.0-99.0) fL MCH 26.7 L (27.0-31.0) pg MCHC 28.9 L (32.0-36.0) g/dL RDW 15.0 (12.0-15.0) % Plt Count 295 (130-450) 10^3/uL MPV 9.4 (7.9-10.8) fL Neut # (Auto) 9.5 H (1.5-6.6) 10^3/uL Lymph # (Auto) 1.0 L (1.5-3.5) 10^3/uL Harney # (Auto) 1.1 H (0.0-1.0) 10^3/uL Eos # (Auto) 0.0 (0.0-0.7) 10^3/uL Baso # (Auto) 0.0 (0.0-0.1) 10^3/uL Absolute Nucleated RBC 0.04 x10^3/uL Nucleated RBC % 0.3 /100WBC Manual Slide Review Indicated WBC Morphology NORMAL APPEARANCE (NORMAL) Platelet Estimate NORMAL (130-450,000) (NORMAL) Platelet Morphology NORMAL APPEARANCE (NORMAL) RBC Morph Micro Appear 1+ HYPOCHROMASIA (NORMAL) Sodium (135-145) mmol/L Potassium (3.5-5.0) mmol/L Chloride (101-111) mmol/L Carbon Dioxide (21-32) mmol/L Anion Gap (6-13) BUN (6-20) mg/dL Creatinine (0.4-1.0) mg/dL Estimated GFR (MDRD) (>89) Glucose (70-100) mg/dL Calcium (8.5-10.3) mg/dL B-Natriuretic Peptide (5-100) pg/mL Triglycerides Cancelled Cholesterol Cancelled LDL Cholesterol, Calc Cancelled VLDL Cholesterol Cancelled HDL Cholesterol Cancelled LDL/HDL Ratio Cancelled Cholesterol/HDL Ratio Cancelled Vitamin B12 (180-914) pg/mL ABX Reporting Has patient been on IV antibiotics over the past 48 hours?: No Assessment/Plan - Problem List (1) Acute heart failure with preserved ejection fraction (HFpEF) Impression: I suspect this is the cause of her hypoxic respiratory failure. I checked a BNP today and it was over 600. She does have lower extremity edema and echocardiogram during this admission showed an ejection fraction of 50%. Diastology was difficult to assess given her atrial fibrillation. There was evidence of secondary mitral regurgitation that was severe. We will give her a dose of IV Lasix today. We will continue her on diltiazem and metoprolol as she remains in atrial fibrillation her rates have been as high as 150s. Control will be crucial to treat her heart failure. She would like another day of IV diuresis. We will wean oxygen saturations for goal in 88%. She likely will need oxygen at home given her history of COPD as well. (2) Acute respiratory failure with hypoxia Impression: This is likely secondary to her acute heart failure with preserved ejection fraction. She was treated for COPD exacerbation completed steroids and antibiotics. She remains hypoxic on 4 L of oxygen via nasal cannula. We will continue to treat her heart failure with IV diuresis. Wean her oxygen for goal saturation greater than 88%. Exercise desaturation test prior to discharge. (3) Acute CVA (cerebrovascular accident) Impression: This is new this admission likely contributing to her current change in mental status. She remains confused at times with mood swings. CT of the head was concerning for right frontal lobe infarct. This was reviewed with neurology who felt that she can be started on anticoagulation immediately given the size of the stroke. She is on Eliquis and Lipitor. Will attempt to obtain an MRI for better visualization. (4) Atrial fibrillation with RVR Impression: She has been in A. fib and at times her rates have been as high as 150s. This is most prominent with exertion. She has been resumed on diltiazem. Metoprolol was started but given her tachycardia, will increase her dose to 25 mg twice daily today. Continue to monitor on telemetry. (5) Confusion Impression: This is an acute change likely secondary to her frontal lobe infarct. We are hopeful that this will improve over the next few days as her stroke involves. We will limit the use of benzodiazepines although she was on it at home as this may potentially be contributing to her confusion. Will use low-dose Haldol as needed for agitation. Neurology recommended speech therapy evaluation and this has been ordered. (6) COPD (chronic obstructive pulmonary disease) Impression: She was treated for COPD exacerbation and completed antibiotics and steroids. There is no evidence of wheezing on exam and I suspect her respiratory failure secondary to the heart failure. We will continue her home inhalers. Qualifiers: COPD type: unspecified COPD Qualified Code(s): J44.9 - Chronic obstructive pulmonary disease, unspecified (7) Chronic pain Impression: We will continue her home gabapentin.
--- NOTE | 2019-10-28 19:05 | MRI Report ---
Reason: Neuro deficit. Stroke suspected. Procedure Date: 10/28/2019 Accession Number: [id number] / [id number] Procedure: MRI - Brain W/O CPT Code: Final Report FULL RESULT: EXAM: MRI BRAIN WITHOUT CONTRAST EXAM DATE: 10/28/2019 06:15 PM. CLINICAL HISTORY: 63-year-old female. Mental status change. Neuro deficit. Stroke suspected. COMPARISON: CT head 10/26/2019 TECHNIQUE: Multiplanar, multisequence T1-weighted and fluid-sensitive MR sequences of the brain were performed. Sequences optimized for routine evaluation. Other: None. IV Contrast: None. FINDINGS: Slightly motion degraded study. Parenchyma/Dura: No mass, acute infarct or hemorrhage. No white matter lesions identified. Ventricles/Cisterns: No hydrocephalus. No abnormal extra-axial fluid collection or hemorrhage. Orbits: Status post bilateral lens replacement surgery. Otherwise unremarkable. Sella Turcica: The pituitary gland, cavernous sinuses, suprasellar cistern and optic chiasm are unremarkable. IAC: Symmetric and unremarkable. Vasculature: Normal signal flow void is seen in the major arterial structures at the skull base. Sinuses: No acute appearing sinus disease. Bones: No focal pathologic appearing marrow signal changes. Other: None. IMPRESSION: 1. Unremarkable MR examination of the brain. No MRI evidence of acute intracranial abnormality. Specifically, no evidence of acute or subacute infarct, acute intracranial hemorrhage, mass, midline shift, or hydrocephalus. RADIA
[2019-10-28] MEDS: FORMOTEROL FUMARATE NEB 20 MCG/2 ML INH SCH (19:42)
[2019-10-28] MEDS: BUDESONIDE 0.5 MG/2 ML NEB INH SCH (19:42)
[2019-10-28] MEDS: ATORVASTATIN 40 MG TABLET PO SCH (21:25)
[2019-10-28] MEDS ORDERED: METOPROLOL TARTRATE 50 MG TABLET PO ONE (23:45)
[2019-10-29] MEDS: SODIUM CHLORIDE FLUSH 0.9% 10 ML SYRINGE IVP SCH ×4 (00:04→20:49)
[2019-10-29] MEDS: ACETAMINOPHEN 325 MG TABLET PO PRN (02:39)
[2019-10-29 07:29] LABS: BASOPHILS % (AUTO) 0.1 %; EOSINOPHILS % (AUTO) 0.1 %; HGB - HEMOGLOBIN 14.8 g/dL (12.0-16.0); LYMPHOCYTES # (AUTO) 0.8 10^3/uL (1.5-3.5); LYMPHOCYTES % (AUTO) 8.5 %; MEAN CORPUSCULAR HEMOGLOBIN 27.2 pg (27.0-31.0); MEAN CORPUSCULAR HGB CONC 28.9 g/dL (32.0-36.0); MEAN CORPUSCULAR VOLUME 93.9 fL (81.0-99.0); MEAN PLATELET VOLUME 9.1 fL (7.9-10.8); MONOCYTES # (AUTO) 0.9 10^3/uL (0.0-1.0); MONOCYTES % (AUTO) 8.9 %; NEUTROPHILS # (AUTO) 7.8 10^3/uL (1.5-6.6); PLT - PLATELET COUNT 252 10^3/uL (130-450); RED BLOOD COUNT 5.45 10^6/uL (4.20-5.40); RED CELL DISTRIBUTION WIDTH 14.8 % (12.0-15.0); WHITE BLOOD COUNT 9.6 x10^3/uL (4.8-10.8)
[2019-10-29 07:36] LABS: CALCIUM 8.7 mg/dL (8.5-10.3); CREATININE 0.8 mg/dL (0.4-1.0)
[2019-10-29] MEDS: IPRATROPIUM/ALBUTEROL 3 ML NEB INH SCH ×4 (07:46→19:21)
[2019-10-29] MEDS: FORMOTEROL FUMARATE NEB 20 MCG/2 ML INH SCH ×2 (07:46→19:21)
[2019-10-29] MEDS: BUDESONIDE 0.5 MG/2 ML NEB INH SCH ×2 (07:46→19:21)
[2019-10-29 10:16] LABS: ABG PO2 81 mmHg (80-100)
[2019-10-29 10:18] LABS: ABG BASE EXCESS 8.7 mmol/L (-2.0-3.0); ABG HCO3 38.8 mmol/L (22.0-26.0); ABG OXYGEN SATURATION 95 % (94-98); ALLEN TEST POSITIVE
[2019-10-29 10:21] LABS: ABG PCO2 81 mmHg (34-45); ABG TCO2 41.3 MMOL/L (21.0-29.0)
[2019-10-29] MEDS ORDERED: METOPROLOL 5 MG/5 ML VIAL IVP STA (11:02)
[2019-10-29] MEDS ORDERED: FUROSEMIDE 40 MG/4 ML VIAL IVP STA (11:06)
[2019-10-29] MEDS: METOPROLOL TARTRATE 50 MG TABLET PO SCH ×2 (11:25→20:46)
[2019-10-29] MEDS: APIXABAN 5 MG TABLET PO SCH ×2 (11:25→20:48)
[2019-10-29] MEDS: diltiaZEM CD 240 MG CAPSULE PO SCH (11:25)
[2019-10-29] MEDS: GABAPENTIN 100 MG CAPSULE PO SCH ×4 (11:25→20:46)
[2019-10-29] MEDS: DOCUSATE SODIUM 250 MG CAPSULE PO SCH (11:27)
[2019-10-29] MEDS: CHOLECALCIFEROL 400 UNIT TABLET PO SCH (11:27)
[2019-10-29] MEDS: ASCORBIC ACID CHEW 500 MG TABLET PO SCH (11:27)
[2019-10-29] MEDS: SENNA 8.6 MG TABLET PO SCH (11:28)
[2019-10-29] MEDS: NICOTINE 7 MG PATCH TOP SCH (11:28)
[2019-10-29] MEDS: polyethylene glycoL 3350 17 GM PACKET PO SCH (11:28)
[2019-10-29] MEDS: MONTELUKAST 10 MG TABLET PO SCH (11:28)
[2019-10-29] MEDS: guaiFENesin 600 MG TABLET PO SCH ×2 (12:03→20:46)
--- NOTE | 2019-10-29 12:55 | PROVIDER PROGRESS NOTE ---
Subjective - Prog Note Date Prog Note Date: 10/29/19 - Subjective Subjective: She remains confused this morning. She notes that the hospital was unable to tell me the year. She was upset at me and asked me to leave the room. She stated that I had caused her to have bruising over her extremities and for her legs to be swollen. I did ask if she had any dyspnea and she said no. Current Medications - Current Medications Current Medications: Active Medications Acetaminophen (Tylenol) 650 mg PO Q4HR PRN PRN Reason: Pain or Fever > 38C (100.4F) Last Admin: 10/29/19 02:39 Dose: 650 mg Albuterol () 2.5 mg INH RTQ4H PRN PRN Reason: Wheezing Last Admin: 10/25/19 03:07 Dose: 2.5 mg Albuterol/Ipratropium (Duoneb) 3 ml INH RTQ4H [facility] Last Admin: 10/29/19 12:06 Dose: 3 ml Apixaban (Eliquis) 5 mg PO BID [facility] Last Admin: 10/29/19 11:25 Dose: 5 mg Ascorbic Acid (Vitamin C) 500 mg PO DAILY [facility] Last Admin: 10/29/19 11:27 Dose: Not Given Atorvastatin Calcium (Lipitor) 40 mg PO QPM [facility] Last Admin: 10/28/19 21:25 Dose: 40 mg Budesonide (Pulmicort) 0.5 mg INH RTBID [facility] Last Admin: 10/29/19 07:46 Dose: 0.5 mg Cholecalciferol (Vitamin D3) 800 unit PO DAILY [facility] Last Admin: 10/29/19 11:27 Dose: Not Given Diltiazem HCl (Cardizem Cd) 240 mg PO DAILY [facility] Last Admin: 10/29/19 11:25 Dose: 240 mg Docusate Sodium (Colace 250mg Capsule) 250 - 500 mg PO DAILY [facility] Last Admin: 10/29/19 11:27 Dose: Not Given Formoterol Fumarate (Perforomist) 20 mcg INH RTBID [facility] Last Admin: 10/29/19 07:46 Dose: 20 mcg Gabapentin (Neurontin) 100 mg PO QID [facility] Last Admin: 10/29/19 11:25 Dose: 100 mg Guaifenesin (Mucinex) 600 mg PO BID [facility] Last Admin: 10/29/19 12:03 Dose: Not Given Guaifenesin (Robitussin Liquid) 100 mg PO Q6HR PRN PRN Reason: Cough Last Admin: 10/28/19 04:24 Dose: 100 mg Metoprolol Tartrate (Lopressor) 50 mg PO BID [facility] Last Admin: 10/29/19 11:25 Dose: 50 mg Montelukast Sodium (Singulair) 10 mg PO DAILY [facility] Last Admin: 10/29/19 11:28 Dose: Not Given Nicotine (Nicoderm) 1 patch TOP DAILY [facility] Last Admin: 10/29/19 11:28 Dose: Not Given Ondansetron HCl (Zofran Inj) 4 mg IVP Q6HR PRN PRN Reason: Nausea / Vomiting Last Admin: 10/28/19 11:13 Dose: 4 mg Polyethylene Glycol (Miralax) 17 gm PO DAILY [facility] Last Admin: 10/29/19 11:28 Dose: Not Given Senna (Senokot) 8.6 - 17.2 mg PO DAILY [facility] Last Admin: 10/29/19 11:28 Dose: Not Given Sodium Chloride (Normal Saline Flush 0.9%) 10 ml IVP PRN PRN PRN Reason: NEEDED PER PROVIDER ORDERS Last Admin: 10/25/19 23:05 Dose: 10 ml Sodium Chloride (Normal Saline Flush 0.9%) 10 ml IVP 0100,0900,1700 [facility] Last Admin: 10/29/19 11:33 Dose: 10 ml Throat Lozenges (Cepacol) 1 lozenge MM Q2HR PRN PRN Reason: Throat pain Last Admin: 10/28/19 04:24 Dose: 1 lozenge Ipratropium/Albuterol [Combivent Respimat] 1 puffs INH QID PRN 03/18/17 Albuterol 2.5 mg INH Q4H PRN 04/18/17 Fluticasone/Salmeterol [Advair 250-50 Diskus] 1 inh INH BID 06/18/19 Gabapentin 100 mg PO QID 06/18/19 LORazepam [Lorazepam] 1 mg PO TID PRN 06/18/19 diltiaZEM CD [Cardizem Cd] 240 mg PO DAILY 06/18/19 Ipratropium/Albuterol [Duoneb] 3 ml INH BID 10/23/19 Montelukast Sodium 10 mg PO DAILY 10/23/19 predniSONE [Deltasone] 10 mg PO DAILYWM 10/23/19 Objective - Vital Signs/Intake & Output Reviewed Vital Signs: Yes Vital Signs: Vital Signs x48h Temp Pulse Pulse Resp BP BP BP 10/29/19 12:15 36.4 C L 130 H 26 H 113/85 H 10/29/19 12:00 140 H 129 H 24 117/77 10/29/19 11:50 155 H 24 115/102 H 10/29/19 11:45 130 H 26 H 104/78 10/29/19 11:40 149 H 24 112/66 10/29/19 11:33 99/74 10/29/19 11:00 140 H 10/29/19 08:06 36.7 C 22 124/80 10/29/19 07:46 86 18 Pulse Ox 10/29/19 12:15 99 10/29/19 12:00 93 10/29/19 11:50 94 10/29/19 11:45 90 L 10/29/19 11:40 92 10/29/19 11:33 10/29/19 11:00 10/29/19 08:06 92 10/29/19 07:46 Intake & Output: Intake & Output 10/26/19 10/27/19 10/28/19 10/29/19 23:59 23:59 23:59 23:59 Intake Total 740 1080 200 240 Balance 740 1080 200 240 - Objective General Appearance: positive: No acute distress, Alert Eyes Bilateral: positive: Normal inspection ENT: positive: ENT inspection nml, Other (Nasal cannula in place) Neck: positive: Nml inspection Respiratory: positive: No respiratory distress, Other (Diminished breath sounds. No wheezes. Mild rales noted.) Cardiovascular: positive: No murmur, Irregularly irregular, Tachycardia. negative: Bradycardia, Systolic murmur Abdomen: positive: Non-tender, No distention. negative: Tenderness Extremities: positive: Full ROM, Pedal edema (+2 pitting edema in bilateral lower extremities) Neurologic/Psychiatric: positive: Disoriented to time, Other (She is moving all four extremities and there is no evidence of any deficits.). negative: Disoriented to person, Disoriented to place - Lab Results Fish Bones: 10/29/19 07:19 10/29/19 07:19 Other Labs: Lab Results x24hrs 10/29/19 10/29/19 10/29/19 Range/Units 10:07 07:19 07:19 WBC (4.8-10.8) x10^3/uL RBC (4.20-5.40) 10^6/uL Hgb (12.0-16.0) g/dL Hct (37.0-47.0) % MCV (81.0-99.0) fL MCH (27.0-31.0) pg MCHC (32.0-36.0) g/dL RDW (12.0-15.0) % Plt Count (130-450) 10^3/uL MPV (7.9-10.8) fL Neut # (Auto) (1.5-6.6) 10^3/uL Lymph # (Auto) (1.5-3.5) 10^3/uL Riley # (Auto) (0.0-1.0) 10^3/uL Eos # (Auto) (0.0-0.7) 10^3/uL Baso # (Auto) (0.0-0.1) 10^3/uL Absolute Nucleated RBC x10^3/uL Nucleated RBC % /100WBC Bld Gas Analysis Time 1014 Sample Site RIGHT RADIAL ABG pH 7.30 L (7.35-7.45) ABG pCO2 81 H* (34-45) mmHg ABG pO2 81 (80-100) mmHg ABG HCO3 38.8 H (22.0-26.0) mmol/L ABG Total CO2 41.3 H* (21.0-29.0) MMOL/L ABG O2 Saturation 95 (94-98) % ABG Base Excess 8.7 H (-2.0-3.0) mmol/L William Test POSITIVE O2 Delivery Device NASAL CANNULA O2 Liters/Min 4.00 LPM Sodium (135-145) mmol/L Potassium (3.5-5.0) mmol/L Chloride (101-111) mmol/L Carbon Dioxide (21-32) mmol/L Anion Gap (6-13) BUN (6-20) mg/dL Creatinine (0.4-1.0) mg/dL Estimated GFR (MDRD) (>89) Glucose (70-100) mg/dL Calcium (8.5-10.3) mg/dL Ammonia 14.0 (7-35) umol/L B-Natriuretic Peptide (5-100) pg/mL TSH 1.39 (0.34-5.60) uIU/mL 10/29/19 10/29/19 10/29/19 Range/Units 07:19 07:19 07:19 WBC 9.6 (4.8-10.8) x10^3/uL RBC 5.45 H (4.20-5.40) 10^6/uL Hgb 14.8 (12.0-16.0) g/dL Hct 51.2 H (37.0-47.0) % MCV 93.9 (81.0-99.0) fL MCH 27.2 (27.0-31.0) pg MCHC 28.9 L (32.0-36.0) g/dL RDW 14.8 (12.0-15.0) % Plt Count 252 (130-450) 10^3/uL MPV 9.1 (7.9-10.8) fL Neut # (Auto) 7.8 H (1.5-6.6) 10^3/uL Lymph # (Auto) 0.8 L (1.5-3.5) 10^3/uL Riley # (Auto) 0.9 (0.0-1.0) 10^3/uL Eos # (Auto) 0.0 (0.0-0.7) 10^3/uL Baso # (Auto) 0.0 (0.0-0.1) 10^3/uL Absolute Nucleated RBC 0.00 x10^3/uL Nucleated RBC % 0.0 /100WBC Bld Gas Analysis Time Sample Site ABG pH (7.35-7.45) ABG pCO2 (34-45) mmHg ABG pO2 (80-100) mmHg ABG HCO3 (22.0-26.0) mmol/L ABG Total CO2 (21.0-29.0) MMOL/L ABG O2 Saturation (94-98) % ABG Base Excess (-2.0-3.0) mmol/L William Test O2 Delivery Device O2 Liters/Min LPM Sodium 133 L (135-145) mmol/L Potassium 4.3 (3.5-5.0) mmol/L Chloride 85 L (101-111) mmol/L Carbon Dioxide 38 H (21-32) mmol/L Anion Gap 10.0 (6-13) BUN 26 H (6-20) mg/dL Creatinine 0.8 (0.4-1.0) mg/dL Estimated GFR (MDRD) 72 L (>89) Glucose 76 (70-100) mg/dL Calcium 8.7 (8.5-10.3) mg/dL Ammonia (7-35) umol/L B-Natriuretic Peptide 583 H (5-100) pg/mL TSH (0.34-5.60) uIU/mL ABX Reporting Has patient been on IV antibiotics over the past 48 hours?: No Assessment/Plan - Problem List (1) Encephalopathy Impression: We had thought that her confusion was related to the frontal lobe infarct as evident on CT of the head. MRI yesterday showed no acute infarct. I did check an ammonia and TSH which were both unremarkable. The patient continues to be confused and disoriented to time which is an acute change for her. Do not suspect meningitis given she has no neck rigidity or fevers. Given her COPD, an ABG was checked which showed her CO2 is elevated at 80 with a pH of 7.3. Her bicarbonate was 41. I am concerned that her encephalopathy may be due to CO2 narcosis and therefore we will transfer to the intensive care unit for BiPAP. I do wonder if her CO2 has been elevated since the weekend when she had a mental status change as her bicarbonate was normal on admission and it has increased since then which is likely compensatory given the hypercapnia. She did receive IV Lasix yesterday and her bicarbonate is 38 today which may be a component of contraction alkalosis. If her encephalopathy does not improve with treatment of the hypercapnia, will discuss with neurology regarding any other further recommendations. (2) Acute on chronic respiratory failure with hypercapnia Impression: I suspect may be the cause of her encephalopathy given her CO2 is elevated at 80. This likely due to her COPD and heart failure. She was treated for COPD exacerbation and she currently has no wheezing and therefore we will discontinue with duo nebs every 4 hours but hold off on steroids and antibiotics. We will continue to diurese her with IV Lasix given the heart failure. We will place her on BiPAP and check an ABG 2 hours later. (3) Acute respiratory failure with hypoxia Impression: This was initially thought secondary to COPD exacerbation but suspect there is now component of heart failure. She continues to require 4 L of oxygen with saturations around 92%. She likely does need oxygen at baseline given her COPD but she does currently appear hypervolemic and in acute heart failure. We will continue to diurese her with IV Lasix. Continue to trend her BNP. (4) Acute heart failure with preserved ejection fraction (HFpEF) Impression: This is likely the cause of her hypoxia and is contributing to her hypercapnia as well. We will continue to diurese her with IV Lasix. Her echocardiogram showed a preserved ejection fraction with secondary mitral regurgitation. Continue to trend her BNP and check daily weights. (5) Atrial fibrillation with RVR Impression: Her heart rate is elevated in the 150s this morning she remains in atrial fibrillation. This in addition to her mitral regurgitation is contributing to her heart failure and respiratory failure. Continue with diltiazem 2040 mg daily and increase metoprolol to 50 mg twice daily. Will give a one-time dose of Lopressor IV today. She remains tachycardic and we will give her a one-time dose of digoxin IV. Continue to monitor on telemetry. (6) COPD (chronic obstructive pulmonary disease) Impression: She was treated for acute exacerbation earlier on this admission with antibiotics and steroids. She currently has diminished breath sounds but no wh eezing. We will continue with duo nebs every 4 hours. We will get a exercise desaturation test prior to discharge sd she will likely need oxygen at home. Qualifiers: COPD type: unspecified COPD Qualified Code(s): J44.9 - Chronic obstructive pulmonary disease, unspecified (7) Chronic pain Impression: We will continue her home gabapentin.
[2019-10-29] MEDS ORDERED: DIGOXIN 500 MCG/2 ML AMP IVP STA (13:16)
[2019-10-29 13:19] LABS: ABG BASE EXCESS 11.9 mmol/L (-2.0-3.0); ABG HCO3 40.4 mmol/L (22.0-26.0); ABG PH 7.39 (7.35-7.45); ABG PO2 65 mmHg (80-100)
[2019-10-29 13:20] LABS: ABG OXYGEN SATURATION 93 % (94-98); ALLEN TEST POSITIVE
[2019-10-29 13:23] LABS: ABG PCO2 69 mmHg (34-45); ABG TCO2 42.5 MMOL/L (21.0-29.0)
[2019-10-29] MEDS: ethyl alcohoL 62% SWAB AMPULE NAS SCH (19:21)
[2019-10-29] MEDS: ATORVASTATIN 40 MG TABLET PO SCH (20:48)
[2019-10-29] MEDS: LORazepam 1 MG TABLET PO PRN (21:41)
[2019-10-30] MEDS: BUDESONIDE 0.5 MG/2 ML NEB INH SCH ×2 (07:28→19:32)
[2019-10-30] MEDS: IPRATROPIUM/ALBUTEROL 3 ML NEB INH SCH ×4 (07:28→19:33)
[2019-10-30] MEDS: FORMOTEROL FUMARATE NEB 20 MCG/2 ML INH SCH ×2 (07:28→19:33)
--- NOTE | 2019-10-30 07:32 | PROVIDER PROGRESS NOTE ---
Subjective - Prog Note Date Prog Note Date: 10/30/19 - Subjective Subjective: She was transferred to intensive care yesterday for BiPAP due to hypercapnic respiratory failure. This morning, she is awake and talkative. Per staff who have been familiar with her in the past, she appears back to baseline. The patient also reports feeling her usual self. She notes in the hospital and why she is here. She knows the month and year. She reports her dyspnea has improved. She also reports improvement in her lower extremity swelling. Current Medications - Current Medications Current Medications: Active Medications Acetaminophen (Tylenol) 650 mg PO Q4HR PRN PRN Reason: Pain or Fever > 38C (100.4F) Last Admin: 10/29/19 02:39 Dose: 650 mg Albuterol () 2.5 mg INH RTQ4H PRN PRN Reason: Wheezing Last Admin: 10/25/19 03:07 Dose: 2.5 mg Albuterol/Ipratropium (Duoneb) 3 ml INH RTQ4H MATTHEW Last Admin: 10/30/19 11:21 Dose: 3 ml Alcohol (Nozin) 1 amp ERIKA BID MATTHEW Last Admin: 10/30/19 08:51 Dose: 1 amp Apixaban (Eliquis) 5 mg PO BID [facility] Last Admin: 10/30/19 08:46 Dose: 5 mg Ascorbic Acid (Vitamin C) 500 mg PO DAILY [facility] Last Admin: 10/30/19 08:43 Dose: 500 mg Atorvastatin Calcium (Lipitor) 40 mg PO QPM [facility] Last Admin: 10/29/19 20:48 Dose: 40 mg Budesonide (Pulmicort) 0.5 mg INH RTBID MATTHEW Last Admin: 10/30/19 07:28 Dose: 0.5 mg Cholecalciferol (Vitamin D3) 800 unit PO DAILY MATTHEW Last Admin: 10/30/19 08:44 Dose: 800 unit Diltiazem HCl (Cardizem Cd) 240 mg PO DAILY [facility] Last Admin: 10/30/19 08:50 Dose: 240 mg Docusate Sodium (Colace 250mg Capsule) 250 - 500 mg PO DAILY [facility] Last Admin: 10/30/19 08:44 Dose: 500 mg Formoterol Fumarate (Perforomist) 20 mcg INH RTBID [facility]THEW Last Admin: 10/30/19 07:28 Dose: 20 mcg Gabapentin (Neurontin) 100 mg PO QID [facility] Last Admin: 10/30/19 12:26 Dose: 100 mg Guaifenesin (Mucinex) 600 mg PO BID [facility] Last Admin: 10/30/19 08:50 Dose: 600 mg Guaifenesin (Robitussin Liquid) 100 mg PO Q6HR PRN PRN Reason: Cough Last Admin: 10/28/19 04:24 Dose: 100 mg Lorazepam (Ativan) 1 mg PO TID PRN PRN Reason: Anxiety Last Admin: 10/30/19 09:01 Dose: 1 mg Metoprolol Tartrate (Lopressor) 75 mg PO BID [facility] Last Admin: 10/30/19 08:48 Dose: 75 mg Montelukast Sodium (Singulair) 10 mg PO DAILY [facility] Last Admin: 10/30/19 08:47 Dose: 10 mg Multivitamins/Minerals (Theragran M) 1 tab PO DAILYWM [facility] Last Admin: 10/30/19 12:26 Dose: 1 tab Nicotine (Nicoderm) 1 patch TOP DAILY [facility] Last Admin: 10/30/19 08:41 Dose: 1 patch Ondansetron HCl (Zofran Inj) 4 mg IVP Q6HR PRN PRN Reason: Nausea / Vomiting Last Admin: 10/28/19 11:13 Dose: 4 mg Polyethylene Glycol (Miralax) 17 gm PO DAILY [facility] Last Admin: 10/30/19 11:53 Dose: 17 gm Senna (Senokot) 8.6 - 17.2 mg PO DAILY [facility] Last Admin: 10/30/19 09:02 Dose: 8.6 mg Sodium Chloride (Normal Saline Flush 0.9%) 10 ml IVP PRN PRN PRN Reason: NEEDED PER PROVIDER ORDERS Last Admin: 10/25/19 23:05 Dose: 10 ml Sodium Chloride (Normal Saline Flush 0.9%) 10 ml IVP 0100,0900,1700 [facility] Last Admin: 10/30/19 11:52 Dose: 10 ml Throat Lozenges (Cepacol) 1 lozenge MM Q2HR PRN PRN Reason: Throat pain Last Admin: 10/28/19 04:24 Dose: 1 lozenge Ipratropium/Albuterol [Combivent Respimat] 1 puffs INH QID PRN 03/18/17 Albuterol 2.5 mg INH Q4H PRN 04/18/17 Fluticasone/Salmeterol [Advair 250-50 Diskus] 1 inh INH BID 06/18/19 Gabapentin 100 mg PO QID 06/18/19 LORazepam [Lorazepam] 1 mg PO TID PRN 06/18/19 diltiaZEM CD [Cardizem Cd] 240 mg PO DAILY 06/18/19 Ipratropium/Albuterol [Duoneb] 3 ml INH BID 10/23/19 Montelukast Sodium 10 mg PO DAILY 10/23/19 predniSONE [Deltasone] 10 mg PO DAILYWM 10/23/19 Objective - Vital Signs/Intake & Output Reviewed Vital Signs: Yes Vital Signs: Vital Signs Pulse Resp BP Pulse Ox 10/30/19 07:10 133 H 22 109/75 95 10/30/19 06:00 129 H 20 114/50 L 93 10/30/19 05:00 111 H 14 103/69 96 10/30/19 04:53 15 99 10/30/19 04:21 108 H 20 123/73 93 Intake & Output: Intake & Output 10/27/19 10/28/19 10/29/19 10/30/19 23:59 23:59 23:59 23:59 Intake Total 1080 200 870 300 Output Total 450 600 Balance 1080 200 420 -300 - Objective General Appearance: positive: No acute distress, Alert Eyes Bilateral: positive: Normal inspection ENT: positive: Other (Nasal cannula in place.) Neck: positive: Nml inspection Respiratory: positive: No respiratory distress, Other (Diminished breath sounds.). negative: Wheezes, Rales Cardiovascular: positive: No murmur, Irregularly irregular, Tachycardia. negative: Bradycardia Abdomen: positive: Non-tender, No distention. negative: Tenderness Skin: positive: Warm, Dry Extremities: positive: Pedal edema (+1 pitting edema in bilateral lower extremities) Neurologic/Psychiatric: positive: Oriented x3, Motor nml. negative: Disoriented to person, Disoriented to place, Disoriented to time - Lab Results Fish Bones: 10/30/19 07:37 10/30/19 07:37 Other Labs: Lab Results x24hrs 10/29/19 10/29/19 10/29/19 Range/Units 21:49 13:10 11:11 Bld Gas Analysis Time 1318 Sample Site LEFT RADIAL ABG pH 7.39 (7.35-7.45) ABG pCO2 69 H* (34-45) mmHg ABG pO2 65 L (80-100) mmHg ABG HCO3 40.4 H (22.0-26.0) mmol/L ABG Total CO2 42.5 H* (21.0-29.0) MMOL/L ABG O2 Saturation 93 L (94-98) % ABG Base Excess 11.9 H (-2.0-3.0) mmol/L William Test POSITIVE O2 Delivery Device BiPAP O2 Liters/Min LPM FiO2 35.00 EPAP 4 cmH2O IPAP 10 cmH2O Sodium (135-145) mmol/L Potassium (3.5-5.0) mmol/L Chloride (101-111) mmol/L Carbon Dioxide (21-32) mmol/L Anion Gap (6-13) BUN (6-20) mg/dL Creatinine (0.4-1.0) mg/dL Estimated GFR (MDRD) (>89) Glucose (70-100) mg/dL Calcium (8.5-10.3) mg/dL Ammonia (7-35) umol/L B-Natriuretic Peptide (5-100) pg/mL TSH (0.34-5.60) uIU/mL Ur Random Chloride 73 mmol/L Nasal Screen MRSA (PCR) POSITIVE A* (NEGATIVE) 10/29/19 10/29/19 10/29/19 Range/Units 10:07 07:19 07:19 Bld Gas Analysis Time 1014 Sample Site RIGHT RADIAL ABG pH 7.30 L (7.35-7.45) ABG pCO2 81 H* (34-45) mmHg ABG pO2 81 (80-100) mmHg ABG HCO3 38.8 H (22.0-26.0) mmol/L ABG Total CO2 41.3 H* (21.0-29.0) MMOL/L ABG O2 Saturation 95 (94-98) % ABG Base Excess 8.7 H (-2.0-3.0) mmol/L William Test POSITIVE O2 Delivery Device NASAL CANNULA O2 Liters/Min 4.00 LPM FiO2 EPAP cmH2O IPAP cmH2O Sodium (135-145) mmol/L Potassium (3.5-5.0) mmol/L Chloride (101-111) mmol/L Carbon Dioxide (21-32) mmol/L Anion Gap (6-13) BUN (6-20) mg/dL Creatinine (0.4-1.0) mg/dL Estimated GFR (MDRD) (>89) Glucose (70-100) mg/dL Calcium (8.5-10.3) mg/dL Ammonia 14.0 (7-35) umol/L B-Natriuretic Peptide (5-100) pg/mL TSH 1.39 (0.34-5.60) uIU/mL Ur Random Chloride mmol/L Nasal Screen MRSA (PCR) (NEGATIVE) 10/29/19 10/29/19 Range/Units 07:19 07:19 Bld Gas Analysis Time Sample Site ABG pH (7.35-7.45) ABG pCO2 (34-45) mmHg ABG pO2 (80-100) mmHg ABG HCO3 (22.0-26.0) mmol/L ABG Total CO2 (21.0-29.0) MMOL/L ABG O2 Saturation (94-98) % ABG Base Excess (-2.0-3.0) mmol/L William Test O2 Delivery Device O2 Liters/Min LPM FiO2 EPAP cmH2O IPAP cmH2O Sodium 133 L (135-145) mmol/L Potassium 4.3 (3.5-5.0) mmol/L Chloride 85 L (101-111) mmol/L Carbon Dioxide 38 H (21-32) mmol/L Anion Gap 10.0 (6-13) BUN 26 H (6-20) mg/dL Creatinine 0.8 (0.4-1.0) mg/dL Estimated GFR (MDRD) 72 L (>89) Glucose 76 (70-100) mg/dL Calcium 8.7 (8.5-10.3) mg/dL Ammonia (7-35) umol/L B-Natriuretic Peptide 583 H (5-100) pg/mL TSH (0.34-5.60) uIU/mL Ur Random Chloride mmol/L Nasal Screen MRSA (PCR) (NEGATIVE) Assessment/Plan - Problem List (1) Encephalopathy Impression: This was likely due to CO2 narcosis. There was initial concern for stroke given the CT head was concerning for an infarct but MRI ruled this out. She is now back to her baseline after placing her on BiPAP. Given her COPD, she is at risk for CO2 narcosis and she would benefit from trilogy at home. I did discuss this with the patient but she states that she would not use a trilogy machine at home she does not like wearing a mask. (2) Acute on chronic respiratory failure with hypercapnia Impression: This has resolved after treating her with BiPAP. Her last CO2 was down to 60 which is likely her baseline given her COPD. She would benefit from trilogy at home but as mentioned above, she has declined at this time. (3) Acute respiratory failure with hypoxia Impression: She is now on 2 L of oxygen with saturations in the low 90s. Suspect is likely her baseline given her COPD and the fact that she has needed oxygen in the past. I do not think that she is in acute heart failure anymore. We will obtain an exercise desaturation test tomorrow and likely discharge her on oxygen. (4) Acute heart failure with preserved ejection fraction (HFpEF) Impression: This has improved. Her BNP is trending down and her lower extremity edema has improved. She is now on 2 L of oxygen which is down from 4 L. Given she is developing contraction alkalosis, we are holding diuretics today but will give her a dose of Diamox. (5) Atrial fibrillation with RVR Impression: Rates have still been elevated in the 110s overnight. We will increase metoprolol to 75 mg twice daily and continue Cardizem. (6) COPD (chronic obstructive pulmonary disease) Impression: This was the cause of her hypercapnia and her chronic hypoxic respiratory failure. She will likely do oxygen at home and we will perform an exercise desaturation test tomorrow. She would also benefit from trilogy at home but she has to be agreeable to this. Discharge her on Advair and T ectropium as well as a DuoNeb inhaler as needed. Qualifiers: COPD type: unspecified COPD Qualified Code(s): J44.9 - Chronic obstructive pulmonary disease, unspecified (7) Metabolic alkalosis Impression: This is likely a component of contraction alkalosis due to the Lasix IV she had been receiving as well as compensation due to the hypercapnic respiratory failure. We will give her a dose of Diamox today and hold furosemide. Her bicarbonate should decrease as we have now treated her hypercapnia. Urine chloride was checked and it was elevated. We will recheck her bicarbonate in the morning. (8) Secondary mitral valve insufficiency Impression: Echocardiogram showed secondary severe mitral regurgitation although her ejection fraction is preserved at 50 to 55%. She will need outpatient follow-up with cardiology. (9) Chronic pain Impression: Continue her home gabapentin.
[2019-10-30 07:55] LABS: BASOPHILS % (AUTO) 0.1 %; EOSINOPHILS % (AUTO) 0.2 %; HGB - HEMOGLOBIN 14.7 g/dL (12.0-16.0); LYMPHOCYTES # (AUTO) 0.7 10^3/uL (1.5-3.5); LYMPHOCYTES % (AUTO) 8.7 %; MEAN CORPUSCULAR HEMOGLOBIN 27.9 pg (27.0-31.0); MEAN PLATELET VOLUME 9.5 fL (7.9-10.8); MONOCYTES # (AUTO) 0.7 10^3/uL (0.0-1.0); MONOCYTES % (AUTO) 8.6 %; NEUTROPHILS # (AUTO) 6.7 10^3/uL (1.5-6.6); NEUTROPHILS % (AUTO) 81.8 %; PLT - PLATELET COUNT 214 10^3/uL (130-450); RED BLOOD COUNT 5.27 10^6/uL (4.20-5.40); RED CELL DISTRIBUTION WIDTH 14.8 % (12.0-15.0); WHITE BLOOD COUNT 8.2 x10^3/uL (4.8-10.8)
[2019-10-30 08:03] LABS: CALCIUM 8.6 mg/dL (8.5-10.3); CREATININE 0.7 mg/dL (0.4-1.0)
[2019-10-30] MEDS: NICOTINE 7 MG PATCH TOP SCH (08:41)
[2019-10-30] MEDS: ASCORBIC ACID CHEW 500 MG TABLET PO SCH (08:43)
[2019-10-30] MEDS: SENNA 8.6 MG TABLET PO SCH ×2 (08:43→09:02)
[2019-10-30] MEDS: CHOLECALCIFEROL 400 UNIT TABLET PO SCH (08:44)
[2019-10-30] MEDS: DOCUSATE SODIUM 250 MG CAPSULE PO SCH (08:44)
[2019-10-30] MEDS: APIXABAN 5 MG TABLET PO SCH ×2 (08:46→21:06)
[2019-10-30] MEDS: GABAPENTIN 100 MG CAPSULE PO SCH ×4 (08:47→22:42)
[2019-10-30] MEDS: MONTELUKAST 10 MG TABLET PO SCH (08:47)
[2019-10-30] MEDS: METOPROLOL TARTRATE 50 MG TABLET PO SCH ×2 (08:48→21:07)
[2019-10-30] MEDS: guaiFENesin 600 MG TABLET PO SCH ×2 (08:50→21:06)
[2019-10-30] MEDS: diltiaZEM CD 240 MG CAPSULE PO SCH (08:50)
[2019-10-30] MEDS: ethyl alcohoL 62% SWAB AMPULE NAS SCH ×2 (08:51→21:06)
[2019-10-30] MEDS: LORazepam 1 MG TABLET PO PRN ×2 (09:01→21:06)
[2019-10-30] MEDS ORDERED: acetaZOLAMIDE 250 MG TABLET PO ONE (09:15)
[2019-10-30] MEDS ORDERED: METOPROLOL 5 MG/5 ML VIAL IVP STA (09:28)
[2019-10-30] MEDS: SODIUM CHLORIDE FLUSH 0.9% 10 ML SYRINGE IVP SCH ×3 (11:52→21:07)
[2019-10-30] MEDS: polyethylene glycoL 3350 17 GM PACKET PO SCH (11:53)
[2019-10-30] MEDS: MULTIVITAMIN W/MINERALS TABLET PO SCH (12:26)
[2019-10-30] MEDS ORDERED: MIN OIL/DIMETHICON/COCONUT OIL 92 GM TUBE TOP PRN (16:00)
[2019-10-30] MEDS ORDERED: HYDROmorphone 2 MG/ML VIAL IVP PRN ×2 (20:14→21:56)
[2019-10-30] MEDS: ATORVASTATIN 40 MG TABLET PO SCH (21:06)
[2019-10-30] MEDS ORDERED: IOVERSOL 320 100 ML VIAL IVP ONE ×2 (21:53→22:24)
[2019-10-30] MEDS ORDERED: traZODone 50 MG TABLET PO PRN (21:57)
--- NOTE | 2019-10-30 23:26 | CT Report ---
Reason: Acute epigastric abdominal pain Procedure Date: 10/30/2019 Accession Number: [id number] / [id number] Procedure: CT - Abdomen/Pelvis W CPT Code: Final Report FULL RESULT: EXAM: CT ABDOMEN AND PELVIS EXAM DATE: 10/30/2019 10:27 PM. CLINICAL HISTORY: Acute epigastric abdominal pain. COMPARISONS: None. TECHNIQUE: Routine helical CT imaging was performed through the abdomen and pelvis. IV contrast: 100 mL OPTIRAY 320. Enteric contrast: No. Reconstructions: Coronal and sagittal. In accordance with CT protocol optimization, one or more of the following dose reduction techniques were utilized for this exam: automated exposure control, adjustment of mA and/or KV based on patient size, or use of iterative reconstructive technique. FINDINGS: Lung Bases: Mild basilar opacities. Trace left and small right pleural effusion. Moderate to marked cardiomegaly. Liver: Mildly hypodense liver. Few incidental small hypodense lesions, possibly small cysts or hemangiomas. Liver measures 19.3 cm in craniocaudal dimension. Gallbladder/Bile Ducts: Unremarkable. Spleen: Normal. Pancreas: Normal. Adrenal Glands: Normal. Kidneys: Few small renal cysts. Kidneys otherwise unremarkable. No enhancing masses or hydronephrosis. Peritoneal Cavity/Bowel: Moderate stool in the colon. Distal colonic diverticula without evidence of acute diverticulitis. No bowel obstruction. No free fluid, free air or adenopathy. Appendix is surgically absent. Pelvic Organs: Unremarkable bladder. Uterus surgically absent. Ovaries not seen. Vasculature: Atherosclerotic vascular disease. No abdominal aortic aneurysm. Bones: No significant abnormality. Other: None. IMPRESSION: 1. Moderate stool in colon may indicate constipation. No evidence of bowel obstruction, free fluid or free air. 2. Colonic diverticula without acute diverticulitis. 3. Mild hepatic steatosis. 4. Trace to small pleural effusions and mild basilar opacities favored to represent atelectasis although infiltrates are not entirely excluded. 5. Moderate to marked cardiomegaly. RADIA
[2019-10-31 05:15] LABS: BASOPHILS % (AUTO) 0.1 %; EOSINOPHILS % (AUTO) 0.1 %; HGB - HEMOGLOBIN 13.5 g/dL (12.0-16.0); LYMPHOCYTES # (AUTO) 0.9 10^3/uL (1.5-3.5); LYMPHOCYTES % (AUTO) 9.6 %; MEAN CORPUSCULAR HEMOGLOBIN 27.6 pg (27.0-31.0); MEAN CORPUSCULAR HGB CONC 29.5 g/dL (32.0-36.0); MEAN CORPUSCULAR VOLUME 93.3 fL (81.0-99.0); MEAN PLATELET VOLUME 10.1 fL (7.9-10.8); MONOCYTES # (AUTO) 1.1 10^3/uL (0.0-1.0); NEUTROPHILS # (AUTO) 7.6 10^3/uL (1.5-6.6); NEUTROPHILS % (AUTO) 78.6 %; PLT - PLATELET COUNT 245 10^3/uL (130-450); WHITE BLOOD COUNT 9.6 x10^3/uL (4.8-10.8)
[2019-10-31 05:27] LABS: CALCIUM 8.5 mg/dL (8.5-10.3); CREATININE 0.6 mg/dL (0.4-1.0)
[2019-10-31] MEDS ORDERED: acetaZOLAMIDE 250 MG TABLET PO ONE (08:15)
[2019-10-31] MEDS ORDERED: METOPROLOL TARTRATE 50 MG TABLET PO SCH (09:00)
[2019-10-31] MEDS ORDERED: DIGOXIN 500 MCG/2 ML AMP IVP SCH (09:00)
[2019-10-31] MEDS: IPRATROPIUM/ALBUTEROL 3 ML NEB INH SCH ×4 (09:16→19:08)
[2019-10-31] MEDS: FORMOTEROL FUMARATE NEB 20 MCG/2 ML INH SCH ×2 (09:16→19:09)
[2019-10-31] MEDS: BUDESONIDE 0.5 MG/2 ML NEB INH SCH ×2 (09:16→19:09)
[2019-10-31] MEDS: METOPROLOL TARTRATE 50 MG TABLET PO SCH ×2 (10:05→20:45)
[2019-10-31] MEDS: polyethylene glycoL 3350 17 GM PACKET PO SCH (10:05)
[2019-10-31] MEDS: NICOTINE 7 MG PATCH TOP SCH (10:05)
[2019-10-31] MEDS: DOCUSATE SODIUM 250 MG CAPSULE PO SCH (10:05)
[2019-10-31] MEDS: MONTELUKAST 10 MG TABLET PO SCH (10:05)
[2019-10-31] MEDS: ethyl alcohoL 62% SWAB AMPULE NAS SCH ×2 (10:05→20:38)
[2019-10-31] MEDS: CHOLECALCIFEROL 400 UNIT TABLET PO SCH (10:06)
[2019-10-31] MEDS: GABAPENTIN 100 MG CAPSULE PO SCH ×4 (10:06→20:38)
[2019-10-31] MEDS: MULTIVITAMIN W/MINERALS TABLET PO SCH (10:06)
[2019-10-31] MEDS: APIXABAN 5 MG TABLET PO SCH ×2 (10:06→20:38)
[2019-10-31] MEDS: diltiaZEM CD 240 MG CAPSULE PO SCH (10:07)
[2019-10-31] MEDS: guaiFENesin 600 MG TABLET PO SCH ×2 (10:10→20:38)
[2019-10-31] MEDS: ASCORBIC ACID CHEW 500 MG TABLET PO SCH (10:10)
[2019-10-31] MEDS: SODIUM CHLORIDE FLUSH 0.9% 10 ML SYRINGE IVP SCH ×3 (10:11→23:51)
[2019-10-31] MEDS ORDERED: METOPROLOL 5 MG/5 ML VIAL IVP STA (10:42)
[2019-10-31] MEDS ORDERED: DILTIAZEM 50 MG/10 ML VIAL IVP STA (10:44)
[2019-10-31] MEDS ORDERED: DILTIAZEM 50 MG/10 ML VIAL IVP ONE (11:19)
--- NOTE | 2019-10-31 12:01 | PROVIDER PROGRESS NOTE ---
Subjective - Prog Note Date Prog Note Date: 10/31/19 - Subjective Subjective: Complained of epigastric pain yesterday. Troponin was checked and it was negative. A CT abdomen pelvis was obtained given she not improved with IV narcotics. There was no acute abnormality except for stool in the colon. This morning she reports she still has some epigastric pain. Denies any chest pain or dyspnea. She also denies any palpitations. He has noticed some small areas of bruising over her calfs bilaterally. Current Medications - Current Medications Current Medications: Active Medications Acetaminophen (Tylenol) 650 mg PO Q4HR PRN PRN Reason: Pain or Fever > 38C (100.4F) Last Admin: 10/29/19 02:39 Dose: 650 mg Albuterol () 2.5 mg INH RTQ4H PRN PRN Reason: Wheezing Last Admin: 10/25/19 03:07 Dose: 2.5 mg Albuterol/Ipratropium (Duoneb) 3 ml INH RTQ4H [facility]W Last Admin: 10/31/19 09:16 Dose: 3 ml Alcohol (Nozin) 1 amp ERIKA BID [facility] Last Admin: 10/31/19 10:05 Dose: 1 amp Apixaban (Eliquis) 5 mg PO BID [facility] Last Admin: 10/31/19 10:06 Dose: 5 mg Ascorbic Acid (Vitamin C) 500 mg PO DAILY [facility] Last Admin: 10/31/19 10:10 Dose: 500 mg Atorvastatin Calcium (Lipitor) 40 mg PO QPM [facility] Last Admin: 10/30/19 21:06 Dose: 40 mg Budesonide (Pulmicort) 0.5 mg INH RTBID [facility] Last Admin: 10/31/19 09:16 Dose: 0.5 mg Cholecalciferol (Vitamin D3) 800 unit PO DAILY [facility] Last Admin: 10/31/19 10:06 Dose: 800 unit Diltiazem HCl (Cardizem Cd) 360 mg PO DAILY [facility] Docusate Sodium (Colace 250mg Capsule) 250 - 500 mg PO DAILY [facility] Last Admin: 10/31/19 10:05 Dose: 250 mg Formoterol Fumarate (Perforomist) 20 mcg INH RTBID [facility] Last Admin: 10/31/19 09:16 Dose: 20 mcg Gabapentin (Neurontin) 100 mg PO QID [facility] Last Admin: 10/31/19 10:06 Dose: 100 mg Guaifenesin (Mucinex) 600 mg PO BID [facility] Last Admin: 10/31/19 10:10 Dose: 600 mg Guaifenesin (Robitussin Liquid) 100 mg PO Q6HR PRN PRN Reason: Cough Last Admin: 10/28/19 04:24 Dose: 100 mg Lorazepam (Ativan) 1 mg PO TID PRN PRN Reason: Anxiety Last Admin: 10/30/19 21:06 Dose: 1 mg Metoprolol Tartrate (Lopressor) 50 mg PO BID [facility] Last Admin: 10/31/19 10:05 Dose: 50 mg Mineral Oil (Cavilon) 1 applic TOP PRN PRN PRN Reason: Skin Care Montelukast Sodium (Singulair) 10 mg PO DAILY [facility] Last Admin: 10/31/19 10:05 Dose: 10 mg Multivitamins/Minerals (Theragran M) 1 tab PO DAILYWM [facility] Last Admin: 10/31/19 10:06 Dose: 1 tab Nicotine (Nicoderm) 1 patch TOP DAILY [facility] Last Admin: 10/31/19 10:05 Dose: 1 patch Ondansetron HCl (Zofran Inj) 4 mg IVP Q6HR PRN PRN Reason: Nausea / Vomiting Last Admin: 10/28/19 11:13 Dose: 4 mg Polyethylene Glycol (Miralax) 17 gm PO DAILY [facility] Last Admin: 10/31/19 10:05 Dose: 17 gm Senna (Senokot) 8.6 - 17.2 mg PO DAILY [facility] Last Admin: 10/30/19 09:02 Dose: 8.6 mg Sodium Chloride (Normal Saline Flush 0.9%) 10 ml IVP PRN PRN PRN Reason: NEEDED PER PROVIDER ORDERS Last Admin: 10/25/19 23:05 Dose: 10 ml Sodium Chloride (Normal Saline Flush 0.9%) 10 ml IVP 0100,0900,1700 [facility] Last Admin: 10/31/19 10:11 Dose: 10 ml Throat Lozenges (Cepacol) 1 lozenge MM Q2HR PRN PRN Reason: Throat pain Last Admin: 10/28/19 04:24 Dose: 1 lozenge Trazodone HCl (Desyrel) 50 mg PO QPM PRN PRN Reason: Insomnia Ipratropium/Albuterol [Combivent Respimat] 1 puffs INH QID PRN 03/18/17 Albuterol 2.5 mg INH Q4H PRN 04/18/17 Fluticasone/Salmeterol [Advair 250-50 Diskus] 1 inh INH BID 06/18/19 Gabapentin 100 mg PO QID 06/18/19 LORazepam [Lorazepam] 1 mg PO TID PRN 06/18/19 diltiaZEM CD [Cardizem Cd] 240 mg PO DAILY 06/18/19 Ipratropium/Albuterol [Duoneb] 3 ml INH BID 10/23/19 Montelukast Sodium 10 mg PO DAILY 10/23/19 predniSONE [Deltasone] 10 mg PO DAILYWM 10/23/19 Objective - Vital Signs/Intake & Output Reviewed Vital Signs: Yes Vital Signs: Vital Signs x48h Temp Pulse Pulse Resp BP BP Pulse Ox 10/31/19 10:58 77 99/70 10/31/19 10:05 109/76 10/31/19 08:17 36.5 C 107 H 18 109/76 93 10/31/19 08:00 107 H 20 10/31/19 05:15 36.5 C 71 16 124/92 H 95 Intake & Output: Intake & Output 10/28/19 10/29/19 10/30/19 10/31/19 23:59 23:59 23:59 23:59 Intake Total 287 672 5453 120 Output Total 450 2150 Balance 200 420 -840 120 - Objective General Appearance: positive: No acute distress, Alert Eyes Bilateral: positive: Normal inspection ENT: positive: ENT inspection nml Neck: positive: Nml inspection Respiratory: positive: No respiratory distress. negative: Wheezes, Rales Cardiovascular: positive: No murmur, Irregularly irregular, Tachycardia Abdomen: positive: Non-tender, No distention. negative: Tenderness, Guarding, Rebound Skin: positive: Warm, Dry, Other (Purpura noted over the posterior aspect of her bilateral legs from the ankle up to midleg.) Neurologic/Psychiatric: positive: Oriented x3 - Lab Results Fish Bones: 10/31/19 04:40 10/31/19 04:40 Other Labs: Lab Results x24hrs 10/31/19 10/31/19 10/30/19 Range/Units 04:40 04:40 22:41 WBC 9.6 (4.8-10.8) x10^3/uL RBC 4.90 (4.20-5.40) 10^6/uL Hgb 13.5 14.0 (12.0-16.0) g/dL Hct 45.7 46.8 (37.0-47.0) % MCV 93.3 (81.0-99.0) fL MCH 27.6 (27.0-31.0) pg MCHC 29.5 L (32.0-36.0) g/dL RDW 15.0 (12.0-15.0) % Plt Count 245 (130-450) 10^3/uL MPV 10.1 (7.9-10.8) fL Neut # (Auto) 7.6 H (1.5-6.6) 10^3/uL Lymph # (Auto) 0.9 L (1.5-3.5) 10^3/uL Lassen # (Auto) 1.1 H (0.0-1.0) 10^3/uL Eos # (Auto) 0.0 (0.0-0.7) 10^3/uL Baso # (Auto) 0.0 (0.0-0.1) 10^3/uL Absolute Nucleated RBC 0.00 x10^3/uL Nucleated RBC % 0.0 /100WBC Sodium 135 (135-145) mmol/L Potassium 3.8 (3.5-5.0) mmol/L Chloride 88 L (101-111) mmol/L Carbon Dioxide 38 H (21-32) mmol/L Anion Gap 9.0 (6-13) BUN 21 H (6-20) mg/dL Creatinine 0.6 (0.4-1.0) mg/dL Estimated GFR (MDRD) 100 (>89) Glucose 128 H (70-100) mg/dL Calcium 8.5 (8.5-10.3) mg/dL Troponin I High Sens (2.3-14.8) ng/L 10/30/19 Range/Units 22:41 WBC (4.8-10.8) x10^3/uL RBC (4.20-5.40) 10^6/uL Hgb (12.0-16.0) g/dL Hct (37.0-47.0) % MCV (81.0-99.0) fL MCH (27.0-31.0) pg MCHC (32.0-36.0) g/dL RDW (12.0-15.0) % Plt Count (130-450) 10^3/uL MPV (7.9-10.8) fL Neut # (Auto) (1.5-6.6) 10^3/uL Lymph # (Auto) (1.5-3.5) 10^3/uL Lassen # (Auto) (0.0-1.0) 10^3/uL Eos # (Auto) (0.0-0.7) 10^3/uL Baso # (Auto) (0.0-0.1) 10^3/uL Absolute Nucleated RBC x10^3/uL Nucleated RBC % /100WBC Sodium (135-145) mmol/L Potassium (3.5-5.0) mmol/L Chloride (101-111) mmol/L Carbon Dioxide (21-32) mmol/L Anion Gap (6-13) BUN (6-20) mg/dL Creatinine (0.4-1.0) mg/dL Estimated GFR (MDRD) (>89) Glucose (70-100) mg/dL Calcium (8.5-10.3) mg/dL Troponin I High Sens 12.7 (2.3-14.8) ng/L Assessment/Plan - Problem List (1) Atrial fibrillation with RVR Impression: Remains difficult to control despite increasing her beta-cadence yesterday. Rates have remained in the 100s to 110s at rest. She increases to as high as the 150s with any exertion. TSH is within normal limits. We will give her a one- time dose of diltiazem 10 mg IV. We will start her on short acting Cardizem 90 mg every 6 hours. We will keep her metoprolol 50 mg twice daily. For heart rate stable on this regimen, we will switch her to long-acting Cardizem 360 mg daily tomorrow in hopes of possible discharge. Fortunately, she is not symptomatically reports no palpitations or chest pain. We will check an EKG and troponin. (2) Epigastric abdominal pain Impression: The pain was sudden on onset yesterday evening and was [address] of the abdomen pelvis showed no acute abnormality except for stool in the colon. Troponin was checked and this was negative. EKG this morning shows nonspecific ST segment changes. She continues to complain of occasional gastric pain but she is able to tolerate a diet. We will recheck a troponin to rule out a cardiac etiology. We will also check a lipase although given the unremarkable CT, doubt pancreatitis. (3) Chronic respiratory failure with hypoxia and hypercapnia Impression: This is secondary to her COPD. She was treated for CO2 narcosis with BiPAP. She is now back to her baseline neurologic status. Exercise desaturation test shows that she needs 1 L of oxygen at rest and 3 L of oxygen with exertion. Given her hypercapnia, we are working to get her a trilogy machine at home given her respiratory failure. (4) Chronic heart failure with preserved ejection fraction Impression: She is still hypervolemic on exam but does not appear to be in acute heart failure. Her diuresis has been held given her contraction alkalosis. She was given Diamox once again today. We will resume her on oral Lasix likely tomorro w. (5) COPD (chronic obstructive pulmonary disease) Impression: Stable and not in exacerbation. We will continue her home inhalers. Qualifiers: COPD type: unspecified COPD Qualified Code(s): J44.9 - Chronic obstructive pulmonary disease, unspecified (6) Metabolic alkalosis Impression: This is likely post hypercapnic alkalosis as well as contraction alkalosis. Her urine chloride was elevated. She was given Diamox once again today and her bicarbonate is decreased at 38. We will recheck a BMP in the morning. (7) Secondary mitral valve insufficiency Impression: This was evident on echocardiogram this admission. She will need outpatient cardiology follow-up. (8) Chronic pain Impression: Continue her home gabapentin.
[2019-10-31] MEDS ORDERED: oxyCODONE 5 MG TABLET PO PRN (14:20)
[2019-10-31] MEDS: LORazepam 1 MG TABLET PO PRN (16:30)
[2019-10-31] MEDS ORDERED: METOPROLOL 5 MG/5 ML VIAL IVP PRN ×2 (16:50→16:52)
[2019-10-31] MEDS: ACETAMINOPHEN 325 MG TABLET PO PRN (18:01)
[2019-10-31] MEDS: ATORVASTATIN 40 MG TABLET PO SCH (20:38)
[2019-10-31] MEDS ORDERED: traZODone 50 MG TABLET PO SCH (21:00)
[2019-11-01] MEDS: LORazepam 1 MG TABLET PO PRN ×2 (00:01→09:29)
[2019-11-01 05:22] LABS: BASOPHILS % (AUTO) 0.1 %; EOSINOPHILS % (AUTO) 0.1 %; HGB - HEMOGLOBIN 13.1 g/dL (12.0-16.0); LYMPHOCYTES # (AUTO) 1.3 10^3/uL (1.5-3.5); MEAN CORPUSCULAR HEMOGLOBIN 26.5 pg (27.0-31.0); MEAN CORPUSCULAR HGB CONC 28.9 g/dL (32.0-36.0); MEAN CORPUSCULAR VOLUME 91.7 fL (81.0-99.0); MEAN PLATELET VOLUME 9.9 fL (7.9-10.8); MONOCYTES # (AUTO) 0.9 10^3/uL (0.0-1.0); MONOCYTES % (AUTO) 10.9 %; NEUTROPHILS # (AUTO) 5.5 10^3/uL (1.5-6.6); NEUTROPHILS % (AUTO) 71.4 %; PLT - PLATELET COUNT 217 10^3/uL (130-450); RED BLOOD COUNT 4.94 10^6/uL (4.20-5.40); RED CELL DISTRIBUTION WIDTH 15.5 % (12.0-15.0); WHITE BLOOD COUNT 7.8 x10^3/uL (4.8-10.8)
[2019-11-01 05:33] LABS: CALCIUM 8.7 mg/dL (8.5-10.3); CREATININE 0.7 mg/dL (0.4-1.0)
[2019-11-01] MEDS: BUDESONIDE 0.5 MG/2 ML NEB INH SCH (07:08)
[2019-11-01] MEDS: IPRATROPIUM/ALBUTEROL 3 ML NEB INH SCH ×2 (07:08→10:58)
[2019-11-01] MEDS: FORMOTEROL FUMARATE NEB 20 MCG/2 ML INH SCH (07:08)
[2019-11-01] MEDS ORDERED: POTASSIUM CHLORIDE 20 MEQ TABLET PO ONE (08:50)
--- NOTE | 2019-11-01 08:55 | Discharge Plan ---
Discharge Plan Problem Reviewed?: Yes Disposition: Home, Self Care Condition: Stable Prescriptions: Apixaban [Eliquis] 5 mg PO BID #60 tablet dilTIAZem HCl [Diltiazem 24Hr ER] 360 mg PO DAILY #30 cap.er.24h Furosemide 20 mg PO DAILY #30 tablet Metoprolol Succinate [Toprol Xl] 50 mg PO DAILY #30 tablet Saliva Substitute Comb. No.12 [Oral Relief Dry Mouth] 30 ml MM Q4H #1 spray.pump Tiotropium [place] [Spiriva] 1 puffs INH DAILY 30 Days #5 each Diet: Low Sodium Activity Restrictions: Activity as Tolerated Instruction Topics: Oxygen Home Use, Atrial Fibrillation Dc, COPD Dc Health Concerns: You were seen in the hospital because of exacerbation of your COPD. You were treated with steroids and antibiotics with improvement. There was concern during the hospitalization after he became confused that he may have had a stroke. An MRI of the brain was completed which showed that you did not have a stroke. It was felt that you were likely confused because of elevated carbon dioxide levels in your body due to your COPD which can make us confused, tired, unresponsive. You were treated with a machine called BiPAP which helps you blow off the carbon dioxide. You worked with the respiratory therapists and it was found that you need oxygen at home. You require 1 L of oxygen at rest and 3 L of oxygen with any movement or exertion. You would also benefit from a trilogy machine which is similar to the BiPAP machine. You should use this at night to prevent carbon dioxide levels from building up. You will now be on a blood thinner given the atrial fibrillation as this decreases your risk of stroke. Your heart rate was very elevated during this hospitalization and we needed to adjust your medications. He will not be taking 3 medications for atrial fibrillation. Y limb is a blood thinner to prevent blood clots. 2 medications are to help control your heart rate. Plan of Treatment: Please take these medications as prescribed. Eliquis 5 mg twice daily to prevent blood clots and decrease your risk of stroke. Diltiazem 360 mg daily to help control your heart rate. You were previously taking 240 mg daily. Metoprolol 50 mg daily. This is a new medication for you and will also help control your heart rate. Tiotropium daily. This is an inhaler which will help with COPD in addition to your other home inhalers. This medication may not be covered by your insurance and if it is not, then follow-up with your primary care provider as they can do a prior authorization with your insurance company to try and get it approved for you. Care Goals: Please follow-up with your primary care provider next week as scheduled. You would benefit from a referral to a clinic assistant given your heart rate has been difficult to control and you do have a leaky heart valve. Assessment: Patient expressed understanding of the treatment plan. No Smoking: If you smoke, Please STOP! Call for help. Follow-up with: Mark Reinoso MD [Primary Care Provider] -
[2019-11-01] MEDS ORDERED: diltiaZEM CD 240 MG CAPSULE PO SCH (09:00)
[2019-11-01] MEDS ORDERED: diltiaZEM CD 180 MG CAPSULE PO SCH (09:00)
[2019-11-01] MEDS: polyethylene glycoL 3350 17 GM PACKET PO SCH (09:17)
[2019-11-01] MEDS: MONTELUKAST 10 MG TABLET PO SCH (09:17)
[2019-11-01] MEDS: MULTIVITAMIN W/MINERALS TABLET PO SCH (09:17)
[2019-11-01] MEDS: METOPROLOL TARTRATE 50 MG TABLET PO SCH (09:18)
[2019-11-01] MEDS: GABAPENTIN 100 MG CAPSULE PO SCH (09:18)
[2019-11-01] MEDS: guaiFENesin 600 MG TABLET PO SCH (09:18)
[2019-11-01] MEDS: SENNA 8.6 MG TABLET PO SCH (09:19)
[2019-11-01] MEDS: DOCUSATE SODIUM 250 MG CAPSULE PO SCH (09:19)
[2019-11-01] MEDS: CHOLECALCIFEROL 400 UNIT TABLET PO SCH (09:20)
[2019-11-01] MEDS: APIXABAN 5 MG TABLET PO SCH (09:20)
[2019-11-01] MEDS: ASCORBIC ACID CHEW 500 MG TABLET PO SCH (09:20)
[2019-11-01] MEDS: NICOTINE 7 MG PATCH TOP SCH (09:21)
[2019-11-01] MEDS: ethyl alcohoL 62% SWAB AMPULE NAS SCH (09:21)
--- NOTE | 2019-11-01 10:37 | DISCHARGE SUMMARY ---
"Discharge Summary Admit Date: 10/23/19 Discharge Date: 11/01/19 Discharging Provider: Randell Gill Primary Care Provider: Mark Reinoso Code Status: Attempt Resuscitation Condition at Discharge: Stable Discharge Disposition: 01 Home, Self Care - DIAGNOSES Admission Diagnoses: Atrial fibrillation with rapid ventricular response COPD exacerbation Community-acquired pneumonia COVID-19 suspect Congestive heart failure Chronic abdominal pain History of uterine cancer Discharge Diagnoses with Status of Each Condition: Atrial fibrillation with rapid regular response - stable. Her heart rate has been difficult to control during this hospitalization. Her Cardizem was increased to 360 mg daily from 240. She was also started on metoprolol 50 mg. In the hospitalization, she required multiple doses of IV pushes and a one-time dose of digoxin IV as the Cardizem and metoprolol were titrated. On discharge, her heart rates are in the 70s to 80s at rest and increased to the low 100s with exertion. She was also discharged on Eliquis 5 mg twice daily. Chronic respiratory failure with hypoxia and hypercapnia - stable. The patient was hypoxic at rest, with room air oxygen saturations of 86%. With exertion on 1 L/min via nasal cannula, her oxygen saturations were 86%, and finally on 3 L/min, her ox saturations improved to 91%. I am ordering home oxygen, 1 L at rest, and 3 L with exertion to help treat her COPD. The patient also has severe COPD and would benefit from nocturnal noninvasive ventilation. I have recommend ed trilogy given the severity of her COPD. Chronic heart failure with preserved ejection fraction - stable. Echocardiogram showed an ejection fraction of 50 to 55% with secondary mitral valve regurg itation. Her BNP was elevated and she required IV diuretics during this hospitalization, she will be discharged on Lasix 20 mg orally. COPD - stable. She was treated for COPD exacerbation during his hospitalization with antibiotics and steroids. She was ruled out for COVID-19. She will require home oxygen as mentioned above and I have recommended trilogy given the severity of her COPD and hypercapnia. Continue her home inhalers and I have prescribed her Luis[place]I did discuss with her that this may not be covered by her insurance and that situation should follow-up with her primary care provider for prior authorization. Secondary mitral valve insufficiency - stable. This was evident on the echocardiogram obtained this hospitalization. Recommended that she follow-up with her deputy editor in chief. Metabolic alkalosis - improving. This is secondary to post hypercapnia alkalosis as well as contraction alkalosis due to diuresis. She did was given Diamox during his hospitalization. Her bicarbonate is 34 on discharge. Chronic abdominal pain - stable. He did have one episode of acute abdominal pain during his hospitalization, CT abdomen pelvis showed no acute abnormalities. Lipase was checked and was normal. Troponin was also checked and EKG and there was low suspicion for ACS. - HPI History of Present Illness: Please refer to H&P per Dr. Bennett on 10/23/19. - CONSULTS | PROCEDURES Procedures: Echocardiogram showed ejection fraction of 50 to 55%. No obvious wall motion abnormalities were visualized. She does have mild abnormal right heart pressures with RVSP of 46 mmHg. She did not have mitral stenosis. There was severe secondary mitral regurgitation. - HOSPITAL COURSE Hospital Course: She was admitted to the floor for COPD exacerbation and age fibrillation with rapid ventricular response. She was treated with steroids and ceftriaxone/ Zithromax and along with being treatments [id number]. A. fib was treated with short acting Cardizem orally. Heart rate remained difficult to control and so metoprolol was also started. She was tested for COVID-19 and this was negative. She began to improve a respiratory standpoint when she developed confusion on hospital day 4. She had become belligerent and agitated. She was given Haldol and a CT the head was obtained which was concerning for a possible infarct in the right frontal lobe. She underwent a CTA of the head and neck which showed no significant stenosis. This was discussed with neurology who recommended given the small size of the stroke, to start her on Eliquis given th e atrial fibrillation and to monitor over next few days as they are hopeful she would improve given the small size of the stroke. The patient had been disoriented but had no focal motor deficits on exam. We were eventually able to obtain MRI of the brain which showed no acute infarct. It was noted at that time but her bicarbonate began to increase and there was concern for possible CO2 narcosis contributing to the change in her mental status. An ABG was obtained which showed a pH 7.3 but her PCO2 is elevated at 80. At this time, she was also hypoxic requiring 4 L of oxygen. It was felt that she was not in a COPD exacerbation and given her edematous state, she was given IV Lasix. She w as transferred to the intensive care unit for BiPAP. After 1 day in intensive care unit, her mental status returned to baseline and her confusion was attributed to hypercapnic respiratory failure. She did work with physical therapy prior to discharge and an exercise desaturation test revealed that she needs 1 L of oxygen at rest and 3 L with exertion. We did discuss that she would benefit from trilogy given her severe COPD and hypercapnia and after much discussion she was finally agreeable to this. He did develop metabolic alkalosis likely due to the hypercapnic respiratory failure as well as contraction alkalosis due to IV Lasix. She was given Diamox twice with improvement in her bicarbonate from the mid 40s down to 34. At this time, she was stable for discharge except for her atrial relation with rapid radicular response. Her heart rate remained difficult to control despite being on 240 mg of diltiazem and metoprolol 50 mg twice daily. She was given a dose of digoxin with some improvement but she continued to be tachycardic with heart rates as high as 150s with exertion. She was asymptomatic. Her Cardizem was switched to 90 mg every 6 hours. She also given a dose of diltiazem 10 mg IV x1. We were able to control her heart rate on 90 mg 3 6 hours along with metoprolol 50 mg twice a day. She was discharged on Cardizem 360 mg daily and Toprol 50 mg daily. During the hospitalization as well, she developed acute onset abdominal pain 2 days prior to discharge. A CT abdomen pelvis showed no acute abnormalities. Lipase was normal. EKG showed no signs of ischemia and troponins were negative x2. It was felt this pain was likely due to her chronic abdominal pain and it returned to baseline. - ALLERGIES Allergies/Adverse Reactions: Allergies Allergy/AdvReac Type Severity Reaction Status Date / Time No Known Drug Allergies Allergy Verified 10/23/19 13:34 - MEDICATIONS Home Medications: Ambulatory Orders Medication Instructions Recorded Confirmed Ipratropium/Albuterol [Combivent 1 puffs INH QID PRN 03/18/17 10/23/19 Respimat] Albuterol 2.5 mg INH Q4H PRN 04/18/17 10/23/19 Fluticasone/Salmeterol [Advair 1 inh INH BID 06/18/19 10/23/19 250-50 Diskus] Gabapentin 100 mg PO QID 06/18/19 10/23/19 LORazepam [Lorazepam] 1 mg PO TID PRN 06/18/19 10/23/19 Ipratropium/Albuterol [Duoneb] 3 ml INH BID 10/23/19 10/23/19 Montelukast Sodium 10 mg PO DAILY 10/23/19 10/23/19 Apixaban [Eliquis] 5 mg PO BID #60 tablet 11/01/19 Furosemide 20 mg PO DAILY #30 tablet 11/01/19 Metoprolol Succinate [Toprol Xl] 50 mg PO DAILY #30 tablet 11/01/19 Saliva Substitute Comb. No.12 30 ml MM Q4H #1 spray.pump 11/01/19 [Oral Relief Dry Mouth] Tiotropium [place] [Spiriva] 1 puffs INH DAILY 30 Days #5 each 11/01/19 dilTIAZem HCl [Diltiazem 24Hr ER] 360 mg PO DAILY #30 cap.er.24h 11/01/19 - PHYSICAL EXAM AT DISCHARGE General Appearance: positive: No acute distress, Alert Eyes Bilateral: positive: Normal inspection ENT: positive: ENT inspection nml, Other (Nasal cannula in place) Neck: positive: Nml inspection Respiratory: positive: No respiratory distress, Other (Diminished). negative: Wheezes, Rales Cardiovascular: positive: No murmur, Irregularly irregular, Tachycardia. negative: Bradycardia, Systolic murmur Abdomen: positive: No distention, Tenderness (Mild tenderness in epigastric region.). negative: Non-tender, Guarding, Rebound Skin: positive: Warm, Dry, Other (Purpura noted over the posterior aspects of her bilateral ankles with a small of amount of bleeding noted.) Extremities: positive: Full ROM, No pedal edema Neurologic/Psychiatric: positive: Oriented x3, Motor nml. negative: Disoriented to person, Disoriented to place, Disoriented to time - LABS Result Diagrams: 11/01/19 05:05 11/01/19 05:05 - FOLLOW UP Follow Up: She has follow-up with her primary care physician this week. She was asked to follow-up with her deputy editor in chief. - TIME SPENT Time Spent in Discharge (Minutes): 38"
[2019-11-01 11:03] VITALS: BP 117/88
[2019-11-01] MEDS ORDERED: SALIVA STIMULANT SPRAY 44.3 ML BOTTLE PO PRN (11:08)
== END 2019-11-01 13:54 | disposition home or self-care (01) | DRG 190 ==
LOC: EDBD → ED 11:56 → MS2 14:50 → ICU 10-29 10:50 → MS3 10-30 16:50
PROVIDERS: ADMIT Internal Medicine; ATTEND Internal Medicine
DX: J44.0 Chronic obstructive pulmonary disease with (acute) lower respiratory infection (principal); I48.91 Unspecified atrial fibrillation; I10 Essential (primary) hypertension; F41.9 Anxiety disorder, unspecified; J18.9 Pneumonia, unspecified organism; J96.21 Acute and chronic respiratory failure with hypoxia; I50.33 Acute on chronic diastolic (congestive) heart failure; J96.22 Acute and chronic respiratory failure with hypercapnia; E87.3 Alkalosis; R41.0 Disorientation, unspecified; J44.1 Chronic obstructive pulmonary disease with (acute) exacerbation; I48.0 Paroxysmal atrial fibrillation; I11.0 Hypertensive heart disease with heart failure; I34.0 Nonrheumatic mitral (valve) insufficiency; T50.1X5A Adverse effect of loop [high-ceiling] diuretics, initial encounter; Y92.230 Patient room in hospital as the place of occurrence of the external cause; G89.29 Other chronic pain; R10.9 Unspecified abdominal pain; M41.9 Scoliosis, unspecified; K59.00 Constipation, unspecified; Z20.828 Contact with and (suspected) exposure to other viral communicable diseases; Z78.1 Physical restraint status; Z99.81 Dependence on supplemental oxygen; Z79.51 Long term (current) use of inhaled steroids; Z79.52 Long term (current) use of systemic steroids; Z85.42 Personal history of malignant neoplasm of other parts of uterus; Z87.891 Personal history of nicotine dependence; Z87.01 Personal history of pneumonia (recurrent)
CPT/HCPCS: 36415; 36600; 70496; 70498; 70551; 71045; 74177; 80048; 80053; 80061; 81003; 82140; 82436; 82607; 82803; 83605; 83690; 83735; 83880; 84100; 84443; 84484; 85014; 85018; 85025; 87040; 87070; 87205; 87640; 93005; 93306; 94640; 94660; 94664; 94667; 94668; 94761; 96374; 96376; 99285; A6250; A9270; J1170; J7626; J8499; Q9967; U0004; 70450; 81001; 81599; 83721; 87086

== ENCOUNTER 2019-11-02 07:06 | Outpatient (CLI) | payer MEDICARE | END 2019-11-02 07:07 | disposition critical access hospital (66) | LOC: EMS 07:06 | PROVIDERS: ATTEND Surgery | DX: R06.02 Shortness of breath (principal) | CPT/HCPCS: A0425; A0427 ==

== ENCOUNTER 2019-11-02 07:26 | Inpatient (IN) | payer MEDICARE ==
--- NOTE | 2019-11-02 08:18 | ED Physician Documentation ---
PD HPI DYSPNEA - Stated complaint Stated Complaint: SOA - Chief complaint Chief Complaint: Resp - History obtained from History obtained from: Patient, EMS - History of Present Illness Timing - onset: Today Timing - onset during: Rest Timing - duration: Hours Timing - details: Gradual onset, Still present Inciting event(s): Other (oxygen turned off) Improved by: O2 Worsened by: Exertion, Laying flat, Coughing Associated symptoms: Cough, Wheezing, Palpitations, Bilateral edema. No: Fever Similar symptoms before: Diagnosis (COPD exacerbation with afib with RVR and failure.) - Additional information Additional information: 63-year-old female with a history of atrial fibrillation COPD and CHF has recently been admitted to the hospital with an exacerbation of COPD and rapid atrial fibrillation. She had hard time controlling the heart rate during hospitalization and she required oxygen on return to home. She was at home beginning yesterday afternoon and she had oxygen delivered to her home she thought that the people who were caring for her were able to put the oxygen up properly and she found this morning when the medics arrived that her oxygen was not even turned on. She has developed tachypnea and tachycardia. Review of Systems Constitutional: reports: Fatigue. denies: Fever Eyes: denies: Decreased vision Ears: denies: Ear pain Nose: denies: Rhinorrhea / runny nose, Congestion Throat: denies: Sore throat Cardiac: reports: Palpitations. 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: Uterine cancer : None HEENT: None Psych: Anxiety Musculoskeletal: None Derm: None - Past Surgical History Past Surgical History: No General: Appendectomy, Other /CERTIFIED BREASTFEEDING EDUCATOR: Hysterectomy, Oophrectomy HEENT: Tonsil/Adenoidectomy - Present Medications Home Medications: Ambulatory Orders Medication Instructions Recorded Confirmed Ipratropium/Albuterol [Combivent 1 puffs INH QID PRN 03/18/17 10/23/19 Respimat] Albuterol 2.5 mg INH Q4H PRN 04/18/17 10/23/19 Fluticasone/Salmeterol [Advair 1 inh INH BID 06/18/19 10/23/19 250-50 Diskus] Gabapentin 100 mg PO QID 06/18/19 10/23/19 LORazepam [Lorazepam] 1 mg PO TID PRN 06/18/19 10/23/19 Ipratropium/Albuterol [Duoneb] 3 ml INH BID 10/23/19 10/23/19 Montelukast Sodium 10 mg PO DAILY 10/23/19 10/23/19 Apixaban [Eliquis] 5 mg PO BID #60 tablet 11/01/19 Furosemide 20 mg PO DAILY #30 tablet 11/01/19 Metoprolol Succinate [Toprol Xl] 50 mg PO DAILY #30 tablet 11/01/19 Saliva Substitute Comb. No.12 30 ml MM Q4H #1 spray.pump 11/01/19 [Oral Relief Dry Mouth] Tiotropium [place] [Spiriva] 1 puffs INH DAILY 30 Days #5 each 11/01/19 dilTIAZem HCl [Diltiazem 24Hr ER] 360 mg PO DAILY #30 cap.er.24h 11/01/19 - Allergies Allergies/Adverse Reactions: Allergies Allergy/AdvReac Type Severity Reaction Status Date / Time No Known Drug Allergies Allergy Verified 11/02/19 07:38 - Social History Does the pt smoke?: Yes Smoking Status: Current every day smoker Does the pt drink ETOH?: No Does the pt have substance abuse?: No - Immunizations Immunizations are current?: Yes - POLST Patient has POLST: No POLST Status: Full Code PD ED PE NORMAL - Vitals Vital signs reviewed: Yes (Tachycardic tachypneic and hypertensive) - General General: Alert and oriented X 3, Well developed/nourished, Other (Tachypneic at rest) - HEENT HEENT: Atraumatic, PERRL, EOMI - Neck Neck: Supple, no meningeal sign, No bony TTP - Cardiac Cardiac: No murmur, Other (Rapid irregularly irregular rate and rhythm) - Respiratory Respiratory: Other (Tachypneic at rest with rhonchi in the left base clear sounds on the right.) - Abdomen Abdomen: Soft, Non tender - Back Back: No CVA TTP, No spinal TTP - Derm Derm: Normal color, Warm and dry, Other (There is a rash to both calves bilaterally with tiny pick armstrong to both ankles and up the posterior calf. This does not appear to be picking. There is eschar and slight erythema to multiple 5 mm papules.) - Extremities Extremities: No deformity, Other (trace edema) - Neuro Neuro: Alert and oriented X 3, security messenger 2-12 intact, No motor deficit, No sensory deficit, Normal speech Eye Opening: Spontaneous Motor: Obeys Commands Verbal: Oriented GCS Score: 15 - Psych Psych: Normal mood, Normal affect Results - Vitals Vitals: Vital Signs - 24 hr 11/02/19 11/02/19 11/02/19 07:23 07:38 10:51 Temperature 36.9 C 36.9 C Heart Rate 147 H 144 H 125 H Respiratory 28 H 28 H 30 H Rate Blood Pressure 126/84 H 123/67 138/96 H O2 Saturation 93 93 94 Oxygen O2 Source Nasal cannula Oxygen Flow Rate 2 - EKG (time done) 0732 Rate: Rate (enter#) (147) Rhythm: Atrial fibrillation Intervals: RBBB (incomplete) Ischemia: Other (strain pattern of ST depression and T wave flattening laterally) Compare to prior EKG: Changed from prior EKG ([facility] 10-23-2019 the QT interval has now normalized. The rate is identicle. ) Computer interpretation: Agree with computer - Labs Labs: Laboratory Tests 11/02/19 11/02/19 11/02/19 10:00 10:00 10:00 WBC 9.7 RBC 4.79 Hgb 13.3 Hct 44.4 MCV 92.7 MCH 27.8 MCHC 30.0 L RDW 15.6 H Plt Count 243 MPV 9.9 Neut # (Auto) 7.3 H Lymph # (Auto) 1.0 L Anson # (Auto) 1.3 H Eos # (Auto) 0.0 Baso # (Auto) 0.0 Absolute Nucleated RBC 0.00 Nucleated RBC % 0.0 Sodium 137 Potassium 3.6 Chloride 95 L Carbon Dioxide 33 H Anion Gap 9.0 BUN 9 Creatinine 0.5 Estimated GFR (MDRD) 124 Glucose 89 Lactic Acid Calcium 8.6 Total Bilirubin 1.6 H AST 17 ALT 22 Alkaline Phosphatase 67 Total Creatine Kinase 25 CK-MB (CK-2) 1.6 B-Natriuretic Peptide Total Protein 5.8 L Albumin 3.2 Globulin 2.6 Albumin/Globulin Ratio 1.2 Lipase 24 Urine Color Urine Clarity Urine pH Ur Specific Rydal Urine Protein Urine Glucose (UA) Urine Ketones Urine Occult Blood Urine Nitrite Urine Bilirubin Urine Urobilinogen Ur Leukocyte Esterase Urine RBC Urine WBC Ur Squamous Epith Cells Urine Bacteria Ur Microscopic Review Urine Culture Comments 11/02/19 11/02/19 11/02/19 10:00 10:00 10:45 WBC RBC Hgb Hct MCV MCH MCHC RDW Plt Count MPV Neut # (Auto) Lymph # (Auto) Anson # (Auto) Eos # (Auto) Baso # (Auto) Absolute Nucleated RBC Nucleated RBC % Sodium Potassium Chloride Carbon Dioxide Anion Gap BUN Creatinine Estimated GFR (MDRD) Glucose Lactic Acid 0.8 Calcium Total Bilirubin AST ALT Alkaline Phosphatase Total Creatine Kinase CK-MB (CK-2) B-Natriuretic Peptide 302 H Total Protein Albumin Globulin Albumin/Globulin Ratio Lipase Urine Color YELLOW Urine Clarity CLEAR Urine pH 8.0 H Ur Specific Rydal 1.010 Urine Protein NEGATIVE Urine Glucose (UA) NEGATIVE Urine Ketones NEGATIVE Urine Occult Blood NEGATIVE Urine Nitrite NEGATIVE Urine Bilirubin NEGATIVE Urine Urobilinogen 0.2 (NORMAL) Ur Leukocyte Esterase TRACE H Urine RBC 0-5 Urine WBC 0-3 Ur Squamous Epith Cells FEW Squamous Urine Bacteria Rare Ur Microscopic Review INDICATED Urine Culture Comments INDICATED - Rads (name of study) CTA chest Radiology: Prelim report reviewed (Impression: 1. Excessive respiratory motion artifact degrades evaluation of the pulmonary arteries. No pulmonary artery embolism identified through the lobar level. Distal to this level, particularly at the lung bases is significantly limited in assessment secondary to the artifact. 2. Cardiomegaly. Mild reflux of contrast into the liver suggests at least some degree of right heart failure/incompetence. 3. Poorly assessed bilateral pulmonary emphysematous changes again noted with upper lobe predominance. Probable bronchial wall thickening, suggestive airways disease, again noted. Small amounts of suspected atelectasis/scarring noted bilaterally with basilar predominance. 4. Trace left pleural fluid again noted.), EMP read indepedently, See rad report Procedures - IVC sono (time) 6225 Bedside IVC sono: IVC measures (cm) (2.20), IVC collapsed c insp (cm) (2.20), High CVP, Fluid overload PD MEDICAL DECISION MAKING - ED course Complexity details: reviewed old records, reviewed results, re-evaluated patient, considered differential, d/w patient ED course: 63-year-old female returns to the hospital today with a persistent elevated he art rate and hypoxia after being at home without her oxygen on overnight. This was inadvertent. She is administered diltiazem 20 mg intravenously with reduction in her heart rate but this is not sustained. Dr. Powers is consulted and the case comes to the emergency department and evaluates the patient and would like to have the patient come back into the hospital today with persistent tachycardia. Departure - Departure Disposition: ED Place in Observation Clinical Impression: Atrial fibrillation with RVR Condition: Stable
[2019-11-02] MEDS ORDERED: IOVERSOL 320 100 ML VIAL IVP ONE ×2 (08:29→09:30)
[2019-11-02] MEDS ORDERED: DILTIAZEM 50 MG/10 ML VIAL IVP ONE (08:37)
[2019-11-02 10:13] LABS: BASOPHILS % (AUTO) 0.1 %; EOSINOPHILS % (AUTO) 0.1 %; HGB - HEMOGLOBIN 13.3 g/dL (12.0-16.0); LYMPHOCYTES % (AUTO) 10.3 %; MEAN CORPUSCULAR HEMOGLOBIN 27.8 pg (27.0-31.0); MEAN CORPUSCULAR VOLUME 92.7 fL (81.0-99.0); MEAN PLATELET VOLUME 9.9 fL (7.9-10.8); MONOCYTES # (AUTO) 1.3 10^3/uL (0.0-1.0); MONOCYTES % (AUTO) 13.7 %; NEUTROPHILS # (AUTO) 7.3 10^3/uL (1.5-6.6); NEUTROPHILS % (AUTO) 75.1 %; PLT - PLATELET COUNT 243 10^3/uL (130-450); RED BLOOD COUNT 4.79 10^6/uL (4.20-5.40); RED CELL DISTRIBUTION WIDTH 15.6 % (12.0-15.0); WHITE BLOOD COUNT 9.7 x10^3/uL (4.8-10.8)
--- NOTE | 2019-11-02 10:24 | CT Report ---
Reason: persistent tachycardia and hypoxia Procedure Date: 11/02/2019 Accession Number: [id number] / [id number] Procedure: CT - ANGIO CHEST W/WO CPT Code: Final Report FULL RESULT: EXAM: CT ANGIOGRAM CHEST EXAM DATE: 11/02/2019 09:29 AM. CLINICAL HISTORY: Persistent tachycardia and hypoxia. COMPARISON: CHEST ANGIO 10/15/2017 2:30 PM. TECHNIQUE: Routine helical imaging was performed through the chest in the pulmonary arterial phase. IV Contrast: 80 mL OPTIRAY 320. Reconstructions: Coronal 3-D MIP reconstructions. Sagittal and coronal. In accordance with CT protocol optimization, one or more of the following dose reduction techniques were utilized for this exam: automated exposure control, adjustment of mA and/or KV based on patient size, or use of iterative reconstructive technique. FINDINGS: Pulmonary Arteries: There is some limitation in assessment for pulmonary embolism secondary to excessive artifact at the lung bases, similar to the prior study. No central, main, or lobar pulmonary embolism identified. Small more distal pulmonary emboli difficult to completely exclude given the extensive artifact, particularly at the lung bases. RV/LV is within normal limits. There is no interventricular septal bowing. There is reflux of contrast material in the IVC. Lungs/Pleura: Trachea and central bronchi appear patent. Extensive artifact secondary to respiratory motion artifact throughout image acquisition, which degrades evaluation of the lung parenchyma. Bilateral emphysematous change again noted with upper lobe predominance. Scattered probable atelectasis/scarring bilaterally again noted with basilar predominance. Mild bronchial wall thickening centrally, suggesting airways disease. No lobar consolidation. Trace left pleural fluid again appears to be present. No pneumothorax. No mass. Mediastinum: Enlarged cardiac size. Aorta and great vessels appear stable. Prominence of the main pulmonary artery that suggests chronic changes pulmonary arterial hypertension, which appears stable. Coronary artery calcifications. Atherosclerotic aortic calcifications. New bulky adenopathy. No pericardial effusion. Thoracic Aorta: Stable. Upper Abdomen: Stable visualized portion. Other: None. IMPRESSION: 1. Excessive respiratory motion artifact degrades evaluation of the pulmonary arteries. No pulmonary artery embolism identified through the lobar level. Distal to this level, particularly at the lung bases, is significantly limited in assessment secondary to the artifact. 2. Cardiomegaly. Mild reflux of contrast into the liver that suggests at least some degree of right heart failure/incompetence. 3. Poorly assessed bilateral pulmonary emphysematous change again noted with upper lobe predominance. Probable bronchial wall thickening, suggesting airways disease, again noted. Small amounts of suspected atelectasis/scarring noted bilaterally with basilar predominance. 4. Trace left pleural fluid again noted. RADIA
[2019-11-02 10:48] LABS: ALBUMIN 3.2 g/dL (3.2-5.5); ALBUMIN/GLOBULIN RATIO 1.2 (1.0-2.2); BILIRUBIN,TOTAL 1.6 mg/dL (0.2-1.0); CALCIUM 8.6 mg/dL (8.5-10.3); CREATININE 0.5 mg/dL (0.4-1.0); TOTAL PROTEIN 5.8 g/dL (6.7-8.2)
[2019-11-02 11:19] LABS: BILIRUBIN,URINE NEGATIVE (NEGATIVE); GLUCOSE, URINE (UA) NEGATIVE (NEGATIVE); KETONES,URINE (UA) NEGATIVE (NEGATIVE); LEUKOCYTE ESTERASE, URINE TRACE (NEGATIVE); NITRITE,URINE NEGATIVE (NEGATIVE); OCCULT BLOOD,URINE NEGATIVE (NEGATIVE); PROTEIN,URINE NEGATIVE (NEGATIVE); UROBILINOGEN,URINE 0.2 (NORMAL) E.U./dL (NORMAL)
[2019-11-02 11:30] LABS: CLARITY,URINE CLEAR (CLEAR)
[2019-11-02 11:51] LABS: BACTERIA,URINE Rare /HPF (None Seen); RBC,URINE 0-5 /HPF (0-5); SQUAMOUS EPITHELIAL CELL,UR FEW Squamous (<= Few)
[2019-11-02] MEDS ORDERED: METOPROLOL SUCCINATE 50 MG TABLET PO STA (13:06)
[2019-11-02] MEDS ORDERED: diltiaZEM CD 120 MG CAPSULE PO STA (13:06)
[2019-11-02] MEDS ORDERED: ONDANSETRON 4 MG/2 ML VIAL IVP PRN (13:25)
[2019-11-02] MEDS ORDERED: SODIUM CHLORIDE FLUSH 0.9% 10 ML SYRINGE IVP PRN (13:25)
[2019-11-02] MEDS ORDERED: ONDANSETRON ODT 4 MG TABLET TL PRN (13:25)
--- NOTE | 2019-11-02 14:25 | HISTORY & PHYSICAL EXAMINATION ---
Chief Complaint - Chief Complaint Chief Complaint: Shortness of breath History of Present Illness - Admitted From Admitted From:: Home - History Obtained From Records Reviewed: Yes History obtained from: Patient, ER Physician, EMR - History of Present Illness HPI Comment/Other: This is a 63-year-old female with a history of COPD on 1 L of oxygen at rest and 3 L with exertion, atrial fibrillation, diastolic heart failure, severe mitral regurgitation who presents today complaining of shortness of breath. The patient was discharged from the hospital yesterday after being treated for COPD exacerbation. Her hospital course was complicated by concern for stroke given encephalopathy which was attributed to hypercapnic respiratory failure. At that time, her heart rate had been difficult to control and her Cardizem and metoprolol were titrated. Patient states that she did well at home yesterday evening and her home oxygen was delivered to her. She states this morning when she woke up she could not breathe. When EMS arrived there, they noted that her oxygen saturations were in the 80s. It was found that her oxygen had not been set up properly and although she was using a nasal cannula, the oxygen was turned off. She reports she not t aken any of her medications today. She does currently feel short of breath. She denies any palpitations or chest pain. She does complain of some epigastric pain which is chronic for her as been present for 3 years. Denies any fevers or chills. Denies any dysuria, urgency. In the emergency department, she is on to be tachycardic and in atrial fibrillation with heart rate in the 140s. She was also tachypneic with a respiratory rate in the high 20s. She was placed on oxygen with improvement of her oxygen saturations. She was given 20 mg of diltiazem IV with slight improvement of her heart rates into the 120s. She underwent a CT angiogram which was a poor study but did not show any obvious pulmonary embolism or infiltrate. Given her atrial fibrillation and dyspnea, medicine was consulted for admission. I did discuss goals of care with the patient again and she states that she signed a POLST form during her last hospitalization and at this time she wants to be a full code. History - Past Medical History Cardiovascular: reports: Atrial fibrillation, Hypertension Respiratory: reports: COPD Neuro: reports: None Endocrine/Autoimmune: reports: None GI: reports: Other (Chronic abdominal pain) COUNTER CHECKER: reports: Uterine cancer : reports: None HEENT: reports: None Psych: reports: Anxiety Musculoskeletal: reports: None Derm: reports: None MRSA Hx?: No - Past Surgical History General: reports: Appendectomy /COUNTER CHECKER: reports: Hysterectomy, Oophrectomy HEENT: reports: Tonsil/Adenoidectomy - Family & Social History Family History Comment/Other: She reports her mother had COPD. Living arrangement: At home Living Situation: Alone Social History Notes: Patient was born in [place] and moved to [facility] at the age of 5. She was but is now . She did smoke about half a pack a day for over 40 years but no longer smokes. She denies any alcohol use. - POLST Patient has POLST: No POLST Status: Full Code Meds/Allgy - Home Medications Home Medications: Ambulatory Orders Medication Instructions Recorded Confirmed Ipratropium/Albuterol [Combivent 1 puffs INH QID PRN 03/18/17 11/02/19 Respimat] Albuterol 2.5 mg INH Q4H PRN 04/18/17 11/02/19 Fluticasone/Salmeterol [Advair 1 inh INH BID 06/18/19 11/02/19 250-50 Diskus] Gabapentin 100 mg PO QID 06/18/19 11/02/19 LORazepam [Lorazepam] 1 mg PO TID PRN 06/18/19 11/02/19 Ipratropium/Albuterol [Duoneb] 3 ml INH BID 10/23/19 11/02/19 Montelukast Sodium 10 mg PO DAILY 10/23/19 11/02/19 Apixaban [Eliquis] 5 mg PO BID #60 tablet 11/01/19 11/02/19 Furosemide 20 mg PO DAILY #30 tablet 11/01/19 11/02/19 Metoprolol Succinate [Toprol Xl] 50 mg PO DAILY #30 tablet 11/01/19 11/02/19 Saliva Substitute Comb. No.12 30 ml MM Q4H #1 spray.pump 11/01/19 11/02/19 [Oral Relief Dry Mouth] Tiotropium [place] [Spiriva] 1 puffs INH DAILY 30 Days #5 each 11/01/19 11/02/19 dilTIAZem HCl [Diltiazem 24Hr ER] 360 mg PO DAILY #30 cap.er.24h 11/01/19 11/02/19 - Allergies Allergies/Adverse Reactions: Allergies Allergy/AdvReac Type Severity Reaction Status Date / Time No Known Drug Allergies Allergy Verified 11/02/19 07:38 Review of Systems - Constitutional Constitutional: denies: Fatigue, Fever, Chills, Weakness - Ears, Nose & Throat Ears, Nose & Throat: denies: Nasal congestion, Sore throat - Cardiovascular Cariovascular: reports: Irregular heart rate, Exertional dyspnea. denies: Palpitations, Chest pain, Decr. exercise tolerance - Respiratory Respiratory: reports: Cough, SOB at rest, SOB with exertion - Gastrointestinal Gastrointestinal: reports: Abdominal pain. denies: Diarrhea, Nausea, Vomiting - Genitourinary Genitourinary: denies: Dysuria, Frequency, Urgency, Hematuria - Musculoskeletal Musculoskeletal: denies: Muscle pain, Limited range of motion - Integumentary Integumentary: reports: Pigment changes. denies: Rash - Neurological Neurological: denies: General weakness, Focal weakness - Hematologic/Lymphatic Hematologic/Lymphatic: reports: Petechiae - All Other Systems All Other Systems: reports: Reviewed and negative Prior Level of Functionality: She is independent with her ADLs. Exam - Vital Signs Reviewed Vital Signs: Yes Vital Signs: Vital Signs x48h Temp Pulse Resp BP Pulse Ox 11/02/19 10:51 125 H 30 H 138/96 H 94 11/02/19 07:38 36.9 C 144 H 28 H 123/67 93 11/02/19 07:23 36.9 C 147 H 28 H 126/84 H 93 - Physical Exam General Appearance: positive: Alert, Mild distress Eyes Bilateral: positive: Normal inspection, Conjunctivae nml ENT: positive: ENT inspection nml Neck: positive: Nml inspection Respiratory: positive: Other (She is tachypneic. Breath sounds are diminished bilaterally. She clearly appears more dyspneic than when she was discharged yes terday.). negative: Wheezes, Rales Cardiovascular: positive: No murmur, Irregularly irregular, Tachycardia. negative: Regular rate & rhythm, Bradycardia, Systolic murmur Abdomen: positive: Nml bowel sounds, No distention, Tenderness (Mild tenderness in the epigastric region.). negative: Non-tender, Guarding, Rebound Skin: positive: Warm, Dry, Skin rash (Vesicular rash over the right side of he lower back in the L4-L5 dermatome.), Other (She has mild erythema over her bilateral lateral legs just superior to the ankles. There are multiple small papules noted and scabs noted.) Extremities: positive: Full ROM, Pedal edema (Trace edema in bilateral lower extremities.) Neurologic/Psychiatric: positive: Oriented x3, Motor nml. negative: Disoriented to person, Disoriented to place, Disoriented to time Conclusion/Plan - Problem List (1) Atrial fibrillation with RVR Conclusion/Plan: She presents atrial fibrillation with rapid ventricular response and heart rates in the 140s. This is likely contributing to her dyspnea and current presentation. Suspect this may have been exacerbated by the hypoxia at home given she was off of oxygen. Her rates were difficult to control during her prior hospitalization. She did not receive her morning diltiazem or metoprolol. EKG does not suggest ischemia and showed troponin is negative. CT angiogram was a poor study but did not suggest any pulmonary embolism or acute process in the lung. We will start her on oral Cardizem 90 mg every 6 hours and continue Toprol 50 mg daily. We will give her a one-time dose of Lopressor 5 mg IV now. Continue to monitor her on telemetry. (2) Chronic heart failure with preserved ejection fraction Conclusion/Plan: Table does not appear to be in exacerbation. Her BNP is lower than what it was on discharge. We will continue her home Lasix. (3) Chronic respiratory failure with hypoxia and hypercapnia Conclusion/Plan: This is secondary to her COPD. She was hypoxic at home but this was due to her not having her oxygen on. He is currently on her baseline oxygen requirements. Continue 1 L of oxygen at rest and 3 L with exertion. (4) COPD (chronic obstructive pulmonary disease) Conclusion/Plan: Does not appear to be in exacerbation. Her breath sounds are diminished on exam with no obvious wheezing. We will continue her home inhalers. Qualifiers: COPD type: unspecified COPD Qualified Code(s): J44.9 - Chronic obstructive pulmonary disease, unspecified (5) Shingles Conclusion/Plan: The vesicular rash over her back appears consistent with shingles. We will start her on valacyclovir 1000 mg 3 times daily for 1 week. (6) Chronic pain Conclusion/Plan: She has chronic abdominal pain which is currently at its baseline. She had a CT of abdomen pelvis a few days ago which showed no acute abnormalities. Lipase is normal. EKG does not suggest ischemia and troponin once again is negative. Continue her home pain medications. - Lab Results Lab results reviewed: Yes Fish Bones: 11/02/19 10:00 11/02/19 10:00 - Diagnostic Imaging Results Diagnostic Imaging Results: positive: Final report reviewed - EKG Results EKG Findings: EKG shows atrial fibrillation with rapid ventricular response. Nonspecific ST segment changes. Core Measures - Anticipated LOS I expect patient to be DC'd or transferred within 96 hours.: Yes - Issues Hospital Issues and Management Plan: 63-year-old female admitted for intubation with rapid ventricular response. We will admit her for IV rate control and monitor on telemetry. Will place in observation overnight. - DVT/VTE - Prophylaxis VTE/DVT Device ordered at admit?: Yes VTE/DVT Prophylaxis med ordered at admit?: No Not Ordered - Medical Reason: Not indicated
[2019-11-02] MEDS ORDERED: SALIVA STIMULANT SPRAY 44.3 ML BOTTLE PO PRN (14:55)
[2019-11-02] MEDS: diltiaZEM 30 MG TABLET PO SCH ×2 (15:07→18:49)
[2019-11-02] MEDS ORDERED: METOPROLOL 5 MG/5 ML VIAL IVP STA (16:40)
[2019-11-02] MEDS: LORazepam 1 MG TABLET PO PRN ×2 (17:19→23:50)
[2019-11-02] MEDS: GABAPENTIN 100 MG CAPSULE PO SCH ×2 (17:19→21:32)
[2019-11-02] MEDS: valACYclovir 500 MG TABLET PO SCH ×2 (17:20→21:32)
[2019-11-02] MEDS: FORMOTEROL FUMARATE NEB 20 MCG/2 ML INH SCH (18:09)
[2019-11-02] MEDS: IPRATROPIUM/ALBUTEROL 3 ML NEB INH SCH (18:09)
[2019-11-02] MEDS: BUDESONIDE 0.5 MG/2 ML NEB INH SCH (18:09)
[2019-11-02] MEDS: SODIUM CHLORIDE FLUSH 0.9% 10 ML SYRINGE IVP SCH ×2 (18:52→23:52)
[2019-11-02] MEDS ORDERED: IPRATROPIUM/ALBUTEROL 3 ML NEB INH SCH (21:00)
[2019-11-02] MEDS: guaiFENesin 600 MG TABLET PO SCH (21:31)
[2019-11-02] MEDS: APIXABAN 5 MG TABLET PO SCH (21:32)
[2019-11-02] MEDS: ALBUTEROL NEB 2.5 MG/3 ML INH PRN (23:59)
[2019-11-03] MEDS: diltiaZEM 30 MG TABLET PO SCH ×2 (02:57→05:36)
[2019-11-03 05:34] LABS: BASOPHILS % (AUTO) 0.2 %; EOSINOPHILS % (AUTO) 0.2 %; LYMPHOCYTES % (AUTO) 12.9 %; MEAN CORPUSCULAR HGB CONC 30.3 g/dL (32.0-36.0); MEAN CORPUSCULAR VOLUME 92.3 fL (81.0-99.0); MEAN PLATELET VOLUME 9.6 fL (7.9-10.8); MONOCYTES # (AUTO) 1.2 10^3/uL (0.0-1.0); MONOCYTES % (AUTO) 14.4 %; NEUTROPHILS # (AUTO) 5.8 10^3/uL (1.5-6.6); NEUTROPHILS % (AUTO) 71.7 %; PLT - PLATELET COUNT 209 10^3/uL (130-450); RED BLOOD COUNT 4.29 10^6/uL (4.20-5.40); RED CELL DISTRIBUTION WIDTH 15.7 % (12.0-15.0); WHITE BLOOD COUNT 8.1 x10^3/uL (4.8-10.8)
[2019-11-03] MEDS: valACYclovir 500 MG TABLET PO SCH ×3 (05:36→21:54)
[2019-11-03 05:46] LABS: CALCIUM 8.3 mg/dL (8.5-10.3); CREATININE 0.5 mg/dL (0.4-1.0); MAGNESIUM 1.7 mg/dL (1.7-2.8); PHOSPHORUS 3.4 mg/dL (2.5-4.6)
[2019-11-03] MEDS: BUDESONIDE 0.5 MG/2 ML NEB INH SCH ×2 (05:51→20:14)
[2019-11-03] MEDS: IPRATROPIUM/ALBUTEROL 3 ML NEB INH SCH ×2 (05:51→23:39)
[2019-11-03] MEDS: FORMOTEROL FUMARATE NEB 20 MCG/2 ML INH SCH ×2 (05:51→20:14)
[2019-11-03] MEDS: LORazepam 1 MG TABLET PO PRN ×3 (05:53→23:12)
--- NOTE | 2019-11-03 08:37 | PHARMACY PROGRESS NOTE ---
- Best Possible Medication History Admit Date and Time: 11/02/19 1829 Processed by: Pharmacy Medication History completed: Yes Secondary Source(s): Previous admit records As the person ultimately responsible for medication therapy, providers are able to order a medication from an existing home medication list in [facility] via the "Reconcile Routine" prior to Confirmation of that medication by senior technical support engineer. Such practice is discouraged except when the physician, in their clinical judgment, deems that a medical need exists for a medication without regard to previous use.
[2019-11-03] MEDS: GABAPENTIN 100 MG CAPSULE PO SCH ×4 (09:33→20:45)
[2019-11-03] MEDS: FUROSEMIDE 20 MG TABLET PO SCH (09:33)
[2019-11-03] MEDS: APIXABAN 5 MG TABLET PO SCH ×2 (09:33→20:44)
[2019-11-03] MEDS: diltiaZEM CD 180 MG CAPSULE PO SCH (09:33)
[2019-11-03] MEDS: MONTELUKAST 10 MG TABLET PO SCH (09:33)
[2019-11-03] MEDS: guaiFENesin 600 MG TABLET PO SCH ×2 (09:33→20:43)
[2019-11-03] MEDS: METOPROLOL SUCCINATE 50 MG TABLET PO SCH (09:34)
[2019-11-03] MEDS: SODIUM CHLORIDE FLUSH 0.9% 10 ML SYRINGE IVP SCH ×2 (09:34→16:49)
[2019-11-03] MEDS: ALBUTEROL NEB 2.5 MG/3 ML INH PRN (12:17)
[2019-11-03] MEDS: oxyCODONE 5 MG TABLET PO PRN ×2 (13:47→20:57)
--- NOTE | 2019-11-03 14:55 | PROVIDER PROGRESS NOTE ---
Subjective - Prog Note Date Prog Note Date: 11/03/19 - Subjective Subjective: Still reports feeling dyspneic. She cannot feel like her heart is racing at times. Reports no chest pain. Current Medications - Current Medications Current Medications: Active Medications Albuterol () 2.5 mg INH Q4H PRN PRN Reason: Shortness of Air/Wheezing Last Admin: 11/03/19 12:17 Dose: 2.5 mg Albuterol/Ipratropium (Duoneb) 3 ml INH RTBID [facility] Last Admin: 11/03/19 05:51 Dose: 3 ml Apixaban (Eliquis) 5 mg PO BID [facility] Last Admin: 11/03/19 09:33 Dose: 5 mg Budesonide (Pulmicort) 0.5 mg INH RTBID [facility] Last Admin: 11/03/19 05:51 Dose: 0.5 mg Diltiazem HCl (Cardizem Cd) 360 mg PO DAILY [facility] Last Admin: 11/03/19 09:33 Dose: 360 mg Formoterol Fumarate (Perforomist) 20 mcg INH RTBID [facility] Last Admin: 11/03/19 05:51 Dose: 20 mcg Furosemide (Lasix) 20 mg PO DAILY [facility] Last Admin: 11/03/19 09:33 Dose: 20 mg Gabapentin (Neurontin) 100 mg PO QID [facility] Last Admin: 11/03/19 13:47 Dose: 100 mg Guaifenesin (Mucinex) 1,200 mg PO BID [facility] Last Admin: 11/03/19 09:33 Dose: 1,200 mg Levalbuterol HCl (Xopenex) 1.25 mg INH Q4H PRN PRN Reason: Shortness of Air/Wheezing Lorazepam (Ativan) 1 mg PO TID PRN PRN Reason: NEEDED PER PROVIDER ORDERS Last Admin: 11/03/19 11:55 Dose: 1 mg Metoprolol Succinate (Toprol Xl) 50 mg PO DAILY [facility] Last Admin: 11/03/19 09:34 Dose: 50 mg Montelukast Sodium (Singulair) 10 mg PO DAILY [facility] Last Admin: 11/03/19 09:33 Dose: 10 mg Ondansetron HCl (Zofran Inj) 4 mg IVP Q6HR PRN PRN Reason: Nausea / Vomiting Ondansetron HCl (Zofran Odt) 4 mg TL Q6HR PRN PRN Reason: Nausea / Vomiting Oxycodone HCl (Roxicodone) 5 mg PO Q4HR PRN PRN Reason: PAIN Last Admin: 11/03/19 13:47 Dose: 5 mg Saliva Substitute (Biotene Moisturizing Mouth [place]) 2 sprays PO Q4H PRN PRN Reason: Mouth Sore Pain Last Admin: 11/03/19 13:48 Dose: 2 sprays Sodium Chloride (Normal Saline Flush 0.9%) 10 ml IVP PRN PRN PRN Reason: NEEDED PER PROVIDER ORDERS Last Admin: 11/02/19 23:52 Dose: 10 ml Sodium Chloride (Normal Saline Flush 0.9%) 10 ml IVP 0100,0900,1700 [facility] Last Admin: 11/03/19 09:34 Dose: 10 ml Valacyclovir HCl (Valtrex) 1,000 mg PO TID [facility] Stop: 11/09/19 16:59 Last Admin: 11/03/19 13:47 Dose: 1,000 mg Ipratropium/Albuterol [Combivent Respimat] 1 puffs INH QID PRN 03/18/17 Albuterol 2.5 mg INH Q4H PRN 04/18/17 Fluticasone/Salmeterol [Advair 250-50 Diskus] 1 inh INH BID 06/18/19 Gabapentin 100 mg PO QID 06/18/19 LORazepam [Lorazepam] 1 mg PO TID PRN 06/18/19 Ipratropium/Albuterol [Duoneb] 3 ml INH BID 10/23/19 Montelukast Sodium 10 mg PO DAILY 10/23/19 Objective - Vital Signs/Intake & Output Reviewed Vital Signs: Yes Vital Signs: Vital Signs x48h Temp Pulse Pulse Resp BP Pulse Ox 11/03/19 13:00 36.9 C 94 20 106/70 91 L 11/03/19 12:18 96 32 H 11/03/19 08:35 37.0 C 93 20 108/65 Intake & Output: Intake & Output 10/31/19 11/01/19 11/02/19 11/03/19 23:59 23:59 23:59 23:59 Intake Total 600 590 Balance 600 590 - Objective General Appearance: positive: No acute distress, Alert Eyes Bilateral: positive: Normal inspection ENT: positive: ENT inspection nml Neck: positive: Nml inspection Respiratory: positive: No respiratory distress, Other (She is on respiratory stress but she is tachypneic. Lips are pursed. No wheezing or rales on exam. Breath sounds are diminished at bases). negative: Wheezes, Rales Cardiovascular: positive: No murmur, Irregularly irregular, Tachycardia. ne gative: Bradycardia, Systolic murmur Abdomen: positive: Non-tender, No distention. negative: Tenderness, Guarding, Rebound Skin: positive: Warm, Dry, Skin rash (She does have a vesicular rash over the right side of her lower back.), Other (The small papules over the posterior aspects of her legs are decreasing in size.) Extremities: positive: Full ROM, Pedal edema (Trace edema in bilateral lower extremities.) Neurologic/Psychiatric: positive: Oriented x3. negative: Disoriented to person, Disoriented to place, Disoriented to time - Lab Results Fish Bones: 11/03/19 05:22 11/03/19 05:22 Other Labs: Lab Results x24hrs 11/03/19 11/03/19 Range/Units 05:22 05:22 WBC 8.1 (4.8-10.8) x10^3/uL RBC 4.29 (4.20-5.40) 10^6/uL Hgb 12.0 (12.0-16.0) g/dL Hct 39.6 (37.0-47.0) % MCV 92.3 (81.0-99.0) fL MCH 28.0 (27.0-31.0) pg MCHC 30.3 L (32.0-36.0) g/dL RDW 15.7 H (12.0-15.0) % Plt Count 209 (130-450) 10^3/uL MPV 9.6 (7.9-10.8) fL Neut # (Auto) 5.8 (1.5-6.6) 10^3/uL Lymph # (Auto) 1.0 L (1.5-3.5) 10^3/uL [place] # (Auto) 1.2 H (0.0-1.0) 10^3/uL Eos # (Auto) 0.0 (0.0-0.7) 10^3/uL Baso # (Auto) 0.0 (0.0-0.1) 10^3/uL Absolute Nucleated RBC 0.00 x10^3/uL Nucleated RBC % 0.0 /100WBC Sodium 139 (135-145) mmol/L Potassium 3.8 (3.5-5.0) mmol/L Chloride 99 L (101-111) mmol/L Carbon Dioxide 33 H (21-32) mmol/L Anion Gap 7.0 (6-13) BUN 13 (6-20) mg/dL Creatinine 0.5 (0.4-1.0) mg/dL Estimated GFR (MDRD) 124 (>89) Glucose 99 (70-100) mg/dL Calcium 8.3 L (8.5-10.3) mg/dL Phosphorus 3.4 (2.5-4.6) mg/dL Magnesium 1.7 (1.7-2.8) mg/dL - Diagnostic Imaging Diagnostic Imaging Results: positive: Final report reviewed ABX Reporting Has patient been on IV antibiotics over the past 48 hours?: No Assessment/Plan - Problem List (1) Acute on chronic respiratory failure with hypoxia and hypercapnia Impression: She is requiring 2 L of oxygen at rest when she is normally on 1 L at baseline. She also desatted on exertion and required more than her baseline 3 L of oxygen. Suspect this may be due to her mild COPD exacerbation. We will continue with duo nebs every 4 hours and her home inhalers. We will hold off on steroids for the time being. (2) Atrial fibrillation with RVR Impression: Her rates have improved and her heart rate is now in the 90s to low 100s at rest. We will get her out of bed and ambulate her and assess her heart rate as she has been tachycardic with exertion. I do think her mitral regurgitation is driving her tachycardia. Will place patient back on Cardizem extended release 360 mg daily and Toprol 50 mg daily. Will use IV Lopressor as needed for persistent tachycardia. Continue to monitor on telemetry. (3) COPD (chronic obstructive pulmonary disease) Impression: She appears to have a mild exacerbation this time. She is tachypneic and slightly hypoxic compared to baseline. We will start her on duo nebs every 4 hours and continue home inhalers. Hold off on steroids for the time being as she has received a course during her prior hospitalization and she now has shingles. Her dyspnea does not improve with frequent inhalers, we will have to start her on steroid. Qualifiers: COPD type: unspecified COPD Qualified Code(s): J44.9 - Chronic obstructive pulmonary disease, unspecified (4) Dyspnea Impression: This is likely multifactorial and due to her atrial fibrillation and her COPD. We will continue to control her heart rate with Cardizem and metoprolol and use IV pushes as needed. Treat her COPD with duo nebs and home inhalers. (5) Chronic heart failure with preserved ejection fraction Impression: She does not appear to be in exacerbation at this time. Continue oral Lasix. (6) Shingles Impression: Continue valacyclovir with today being day 2. (7) Chronic pain Impression: Continue her home gabapentin.
[2019-11-03] MEDS: LEVALBUTEROL 1.25 MG/3 ML NEB INH PRN ×2 (16:16→20:14)
[2019-11-03] MEDS: NICOTINE 14 MG PATCH TOP SCH (16:49)
[2019-11-04] MEDS: LEVALBUTEROL 1.25 MG/3 ML NEB INH PRN ×2 (00:28→20:11)
[2019-11-04] MEDS: SODIUM CHLORIDE FLUSH 0.9% 10 ML SYRINGE IVP SCH ×3 (02:27→16:45)
[2019-11-04 06:08] LABS: BASOPHILS % (AUTO) 0.2 %; EOSINOPHILS % (AUTO) 0.1 %; HGB - HEMOGLOBIN 11.6 g/dL (12.0-16.0); LYMPHOCYTES # (AUTO) 0.9 10^3/uL (1.5-3.5); LYMPHOCYTES % (AUTO) 10.2 %; MEAN CORPUSCULAR HEMOGLOBIN 26.7 pg (27.0-31.0); MEAN CORPUSCULAR HGB CONC 29.3 g/dL (32.0-36.0); MEAN CORPUSCULAR VOLUME 91.2 fL (81.0-99.0); MONOCYTES # (AUTO) 0.9 10^3/uL (0.0-1.0); MONOCYTES % (AUTO) 10.9 %; NEUTROPHILS # (AUTO) 6.7 10^3/uL (1.5-6.6); NEUTROPHILS % (AUTO) 78.2 %; PLT - PLATELET COUNT 210 10^3/uL (130-450); RED BLOOD COUNT 4.34 10^6/uL (4.20-5.40); RED CELL DISTRIBUTION WIDTH 15.6 % (12.0-15.0); WHITE BLOOD COUNT 8.5 x10^3/uL (4.8-10.8)
[2019-11-04 06:21] LABS: CREATININE 0.3 mg/dL (0.4-1.0); MAGNESIUM 1.7 mg/dL (1.7-2.8); PHOSPHORUS 3.4 mg/dL (2.5-4.6)
[2019-11-04] MEDS: valACYclovir 500 MG TABLET PO SCH ×3 (06:35→22:56)
[2019-11-04] MEDS: LORazepam 1 MG TABLET PO PRN ×2 (06:37→17:02)
[2019-11-04] MEDS: NICOTINE 14 MG PATCH TOP SCH (09:12)
[2019-11-04] MEDS: BUDESONIDE 0.5 MG/2 ML NEB INH SCH (09:18)
[2019-11-04] MEDS: IPRATROPIUM/ALBUTEROL 3 ML NEB INH SCH ×2 (09:18→20:12)
[2019-11-04] MEDS: FORMOTEROL FUMARATE NEB 20 MCG/2 ML INH SCH ×2 (09:18→20:11)
[2019-11-04] MEDS: diltiaZEM CD 180 MG CAPSULE PO SCH (10:21)
[2019-11-04] MEDS: DOCUSATE SODIUM 250 MG CAPSULE PO SCH (10:21)
[2019-11-04] MEDS: MONTELUKAST 10 MG TABLET PO SCH (10:21)
[2019-11-04] MEDS: guaiFENesin 600 MG TABLET PO SCH ×2 (10:22→22:56)
[2019-11-04] MEDS: FUROSEMIDE 20 MG TABLET PO SCH (10:22)
[2019-11-04] MEDS: polyethylene glycoL 3350 17 GM PACKET PO SCH (10:24)
[2019-11-04] MEDS: METOPROLOL SUCCINATE 50 MG TABLET PO SCH ×2 (10:24→22:57)
[2019-11-04] MEDS: APIXABAN 5 MG TABLET PO SCH ×2 (10:25→22:57)
[2019-11-04] MEDS: GABAPENTIN 100 MG CAPSULE PO SCH ×4 (10:25→22:57)
[2019-11-04] MEDS: oxyCODONE 5 MG TABLET PO PRN (10:31)
--- NOTE | 2019-11-04 11:41 | Discharge Plan ---
Discharge Plan Problem Reviewed?: Yes Disposition: Home, Self Care Condition: Fair Prescriptions: guaiFENesin [Mucinex] 600 mg PO BID #60 tablet Metoprolol Succinate [Toprol Xl] 50 mg PO BID #60 tablet Nicotine 14 mg Patch [Nicoderm] 1 patch TOP DAILY #7 patch Nicotine 7 mg Patch [Nicoderm] 1 each TOP Q24H #7 patch Diet: Regular Activity Restrictions: Activity as Tolerated Shower Restrictions: No Driving Restrictions: No Instruction Topics: Oxygen Home Use, Breathing Controlled Dc, Coughing Techniques Dc Health Concerns: You were hospitalized for treating the shortness of breath and adjusting your medications for high heart rates. You will be getting the Trilogy machine and education/instructions on its use at your house, possibly later today. The same oxygen settings should be used at home: 1L of oxygen during rest, THEN BEFORE YOU STAND TO WALK, YOU MUST TURN IT UP TO 3L for that setting with ac tivity. Please be accurate with these oxygen settings, because if you turn it up too high, at rest especially, you retain Carbon Dioxide and become sleepy and confused (something called CO2 narcosis). DO NOT SMOKE WITH OXYGEN IN YOUR HOUSE. Follow the new list of medications, the doses were adjusted slightly and new prescriptions were electronically sent to your pharmacy. Take the Valcyclovir as previously prescribed. Use the Nicotine patches if you need (14 mg daily for a week, then 7 mg daily for a week, then stop). Plan of Treatment: As above. Care Goals: Improvement in symptoms and stabilization are the goals. Assessment: The patient understands. Additional Instructions or Follow Up instructions: Keep the appointment with Dr Reinoso scheduled for later this week: on 11/06/19 at 3;40 pm. Talk to him about having a Cleaning Laborer, if you want. You also qualify for attending the [facility] for [facility]; you would need a referral from a provider. Follow-Up Care: [facility] - Pulmonary No Smoking: If you smoke, Please STOP! Call for help. Follow-up with: Mark Reinoso MD [Primary Care Provider] -
[2019-11-04] MEDS ORDERED: PROCHLORPERAZINE 10 MG/2 ML VIAL IVP PRN (12:44)
[2019-11-04 13:23] LABS: ABG BASE EXCESS 6.5 mmol/L (-2.0-3.0); ABG HCO3 35.3 mmol/L (22.0-26.0); ABG OXYGEN SATURATION 92 % (94-98); ABG PO2 68 mmHg (80-100); ABG TCO2 37.5 MMOL/L (21.0-29.0); ALLEN TEST POSITIVE
[2019-11-04 13:28] LABS: ABG PCO2 73 mmHg (34-45)
--- NOTE | 2019-11-04 16:01 | PROVIDER PROGRESS NOTE ---
Assessment/Plan - Problem List (1) Lethargy Assessment/Plan: This morning, she had slow responses but no garbling of speech and no disorientation. It was similar to the symptoms that she displayed at the last admission, 1 week ago, when we thought she was having a stroke. During that time, the final diagnosis was CO2 narcosis. ABG to be done: It was done and showed pH 7.3, PCO2 72, PO2 68 with a 91% sa turation. She again seems to have CO2 narcosis. Will decrease resting oxygen to 1L from 2L, to increase her CO2 drive for ventilation. She needs a Trilogy machine, to help ventilate. RT called the company who confirmed that the patient qualifies for trilogy machine. They would come and teach her how to use it here or at home. The patient refused for them to come here and wanted it delivered to her house. No DC today. I will make her Inpatient. (2) Acute on chronic respiratory failure with hypoxia and hypercapnia Assessment/Plan: There is no wheezing currently, she is not dyspneic at rest. ABG done today: pH 7.3, pCO2 72, pO2 68 on2L with a 92% sat She is getting acidotic from CO2 retention. We will decrease the supplemental oxygen to 1 L during rest to avoid CO2 retention and CO2 narcosis. Will decrease the Lasix to every other day so that she does not have contraction alkalosis as a reason to retain CO2. I will urge her to get the Trilogy machine ELA to help ventilate, so she can get instructed here. No discharge home today. (3) Nausea Assessment/Plan: Zofran and Compazine finally quieted down her symptoms. She has no appetite because of this and only took sips. Her nausea is intermittent with her chronic abdominal pain which is been there for years, she needs to eat in a certain laying position. (4) Atrial fibrillation with RVR Assessment/Plan: When she is walking, heart rate rises to the 130s, at her best she is 90 in A. fib. She remains on Eliquis. She is on her Cardizem CD 360 daily. Will increase her beta-cadence from daily to twice daily. (5) Hyponatremia Assessment/Plan: She is on daily p.o. Lasix, she may be having more salt loss than water loss. We will decrease Lasix from daily to every other day. Watch BMP daily. (6) Shingles Assessment/Plan: She is on relatively new valacyclovir. May be this is giving her the nausea. Continue with droplet isolation (7) Chronic pain Assessment/Plan: She gets chronic abdominal pain, years of work-up showed no real etiology, she knows how to adjust her body when taking p.o. diet to diminish her symptoms and she is on gabapentin. - Current Meds Current Meds: Current Medications Generic Name Dose Route Start Last Admin Trade Name Freq PRN Reason Stop Dose Admin Albuterol 2.5 mg 11/02/19 14:54 11/03/19 12:17 INH 2.5 mg Q4H PRN Administration Shortness of Air/Wheezing Albuterol/Ipratropium 3 ml 11/02/19 19:00 11/04/19 09:18 Duoneb INH 3 ml RTBID MATTHEW Administration Apixaban 5 mg 11/02/19 21:00 11/04/19 10:25 Eliquis PO 5 mg BID MATTHEW Administration Budesonide 0.5 mg 11/02/19 19:00 11/04/19 09:18 Pulmicort INH 0.5 mg RTBID MATTHEW Administration Diltiazem HCl 360 mg 11/03/19 09:00 11/04/19 10:21 Cardizem Cd PO 360 mg DAILY MATTHEW Administration Docusate Sodium 250 - 500 mg 11/04/19 09:00 11/04/19 10:21 Colace 250mg Capsule PO 250 mg DAILY MATTHEW Administration Formoterol Fumarate 20 mcg 11/02/19 19:00 11/04/19 09:18 Perforomist INH 20 mcg RTBID MATTHEW Administration Furosemide 20 mg 11/03/19 09:00 11/04/19 10:22 Lasix PO 20 mg DAILY MATTHEW Administration Gabapentin 100 mg 11/02/19 17:00 11/04/19 13:24 Neurontin PO 100 mg QID MATTHEW Administration Guaifenesin 1,200 mg 11/02/19 21:00 11/04/19 10:22 Mucinex PO 1,200 mg BID MATTHEW Administration Levalbuterol HCl 1.25 mg 11/03/19 13:42 11/04/19 00:28 Xopenex INH 1.25 mg Q4H PRN Administration Shortness of Air/Wheezing Lorazepam 1 mg 11/02/19 14:54 11/04/19 06:37 Ativan PO 1 mg TID PRN Administration NEEDED PER PROVIDER ORDERS Montelukast Sodium 10 mg 11/03/19 09:00 11/04/19 10:21 Singulair PO 10 mg DAILY MATTHEW Administration Nicotine 1 patch 11/03/19 16:36 11/04/19 09:12 Nicoderm TOP 1 patch DAILY MATTHEW Administration Ondansetron HCl 4 mg 11/02/19 13:25 11/04/19 09:14 Zofran Inj IVP 4 mg Q6HR PRN Administration Nausea / Vomiting Oxycodone HCl 5 mg 11/02/19 18:22 11/04/19 10:31 Roxicodone PO 5 mg Q4HR PRN Administration PAIN Polyethylene Glycol 17 gm 11/04/19 09:00 11/04/19 10:24 Miralax PO 17 gm DAILY MATTHEW Administration Prochlorperazine Edisylate 10 mg 11/04/19 12:44 11/04/19 13:19 Compazine Inj IVP 10 mg Q6HR PRN Administration Nausea / Vomiting Saliva Substitute 2 sprays 11/02/19 14:55 11/03/19 13:48 Biotene Moisturizing Mouth Stanton PO 2 sprays Q4H PRN Administration Mouth Sore Pain Sodium Chloride 10 ml 11/02/19 13:25 11/02/19 23:52 Normal Saline Flush 0.9% IVP 10 ml PRN PRN Administration NEEDED PER PROVIDER ORDERS Sodium Chloride 10 ml 11/02/19 17:00 11/04/19 10:24 Normal Saline Flush 0.9% IVP 10 ml 0100,0900,1700 MATTHEW Administration Valacyclovir HCl 1,000 mg 11/02/19 17:00 11/04/19 13:20 Valtrex PO 11/09/19 16:59 1,000 mg TID MATTHEW Administration - Lab Result Fish Bone Diagrams: 11/04/19 05:50 11/04/19 05:50 - Additional Planning My Orders: My Active Orders 11/04/19 08:09 Oxygen Desat. Study w/Exercise [RC] .ONCE 11/04/19 12:44 Prochlorperazine Inj [Compazine Inj] 10 mg IVP Q6HR PRN 05/19/20 12:51 Arterial Blood Gases - RT [RC] .ONCE 11/04/19 15:58 Transfer [Admit \ Transfer \ Status] [RC] .ONCE 11/04/19 21:00 Metoprolol Succinate [Toprol Xl] 50 mg PO BID Subjective - Subjective Patient Reports: Nausea (She does not want to try lunch, she only had sips of br eakfast, she did have an entire handful of morning meds all at once.) Nursing Reports: Nausea, Other (She is very fatigued today. Her O2 setting is 2 L. Zofran only helped the nausea slightly, Compazine helped more) Objective Vital Signs: Vital Signs - 24 hr 11/03/19 11/03/19 11/03/19 16:17 17:00 20:24 Temperature 37 C Heart Rate 96 100 Heart Rate [ 93 Brachial] Respiratory 30 H 20 20 Rate Blood Pressure 116/80 [Right Brachial artery] O2 Saturation 92 11/03/19 11/04/19 11/04/19 20:37 00:15 00:29 Temperature 36.7 C 36.6 C Heart Rate 92 Heart Rate [ 98 90 Brachial] Respiratory 24 20 20 Rate Blood Pressure 115/85 H 109/78 [Right Brachial artery] O2 Saturation 92 92 11/04/19 11/04/19 11/04/19 06:11 07:30 09:28 Temperature 36.5 C 36.7 C Heart Rate 117 H Heart Rate [ 80 98 Brachial] Respiratory 22 20 28 H Rate Blood Pressure 120/83 H 122/83 H [Right Brachial artery] O2 Saturation 89 L 96 11/04/19 11:40 Temperature 36.6 C Heart Rate Heart Rate [ 98 Brachial] Respiratory 20 Rate Blood Pressure 109/76 [Right Brachial artery] O2 Saturation 95 Oxygen O2 Source Nasal cannula Oxygen Flow Rate 2 I&O (Last 24 Hrs): Intake and Output Totals x24h 11/02/19 11/03/19 11/04/19 23:59 23:59 23:59 Intake Total 600 1015 300 Balance 600 1015 300 General: Alert, Other (Appears tired, is slow to anmswer but is oriented.) HEENT: Atraumatic, Other (Dry mucosa) Neck: Supple Neuro: Alert, Non Focal Cardiovascular: Other (Irreg irreg, tachy to 130 with walking) Respiratory: No respiratory distress Abdomen: Soft, No tenderness, Other (Mildly distended, decreased bowel sounds) Extremities: Other (1+ ankle edema. Many ecchymolses of upper extrem, purpura of both ankles.) - Results Results: Laboratory Results WBC 8.5 x10^3/uL (4.8-10.8) 11/04/19 05:50 RBC 4.34 10^6/uL (4.20-5.40) 11/04/19 05:50 Hgb 11.6 g/dL (12.0-16.0) L 11/04/19 05:50 Hct 39.6 % (37.0-47.0) 11/04/19 05:50 MCV 91.2 fL (81.0-99.0) 11/04/19 05:50 MCH 26.7 pg (27.0-31.0) L 11/04/19 05:50 MCHC 29.3 g/dL (32.0-36.0) L 11/04/19 05:50 RDW 15.6 % (12.0-15.0) H 11/04/19 05:50 Plt Count 210 10^3/uL (130-450) 11/04/19 05:50 MPV 10.0 fL (7.9-10.8) 11/04/19 05:50 Neut # (Auto) 6.7 10^3/uL (1.5-6.6) H 11/04/19 05:50 Lymph # (Auto) 0.9 10^3/uL (1.5-3.5) L 11/04/19 05:50 [place] # (Auto) 0.9 10^3/uL (0.0-1.0) 11/04/19 05:50 Eos # (Auto) 0.0 10^3/uL (0.0-0.7) 11/04/19 05:50 Baso # (Auto) 0.0 10^3/uL (0.0-0.1) 11/04/19 05:50 Absolute Nucleated RBC 0.00 x10^3/uL 11/04/19 05:50 Nucleated RBC % 0.0 /100WBC 11/04/19 05:50 Bld Gas Analysis Time 1320 11/04/19 13:13 Sample Site RIGHT RADIAL 11/04/19 13:13 ABG pH 7.30 (7.35-7.45) L 11/04/19 13:13 ABG pCO2 73 mmHg (34-45) H* 11/04/19 13:13 ABG pO2 68 mmHg (80-100) L 11/04/19 13:13 ABG HCO3 35.3 mmol/L (22.0-26.0) H 11/04/19 13:13 ABG Total CO2 37.5 MMOL/L (21.0-29.0) H 11/04/19 13:13 ABG O2 Saturation 92 % (94-98) L 11/04/19 13:13 ABG Base Excess 6.5 mmol/L (-2.0-3.0) H 11/04/19 13:13 William Test POSITIVE 11/04/19 13:13 O2 Delivery Device NASAL CANNULA 11/04/19 13:13 O2 Liters/Min 2.00 LPM 11/04/19 13:13 Sodium 133 mmol/L (135-145) L 11/04/19 05:50 Potassium 4.1 mmol/L (3.5-5.0) 11/04/19 05:50 Chloride 91 mmol/L (101-111) L 11/04/19 05:50 Carbon Dioxide 35 mmol/L (21-32) H 11/04/19 05:50 Anion Gap 7.0 (6-13) 11/04/19 05:50 BUN 15 mg/dL (6-20) 11/04/19 05:50 Creatinine 0.3 mg/dL (0.4-1.0) L 11/04/19 05:50 Estimated GFR (MDRD) 223 (>89) 11/04/19 05:50 Glucose 115 mg/dL (70-100) H 11/04/19 05:50 Lactic Acid 0.8 mmol/L (0.5-2.2) 11/02/19 10:00 Calcium 8.0 mg/dL (8.5-10.3) L 11/04/19 05:50 Phosphorus 3.4 mg/dL (2.5-4.6) 11/04/19 05:50 Magnesium 1.7 mg/dL (1.7-2.8) 11/04/19 05:50 Total Bilirubin 1.6 mg/dL (0.2-1.0) H 11/02/19 10:00 AST 17 IU/L (10-42) 11/02/19 10:00 ALT 22 IU/L (10-60) 11/02/19 10:00 Alkaline Phosphatase 67 IU/L (42-121) 11/02/19 10:00 Total Creatine Kinase 25 IU/L (22-269) 11/02/19 10:00 CK-MB (CK-2) 1.6 ng/mL (0.6-6.3) 11/02/19 10:00 B-Natriuretic Peptide 302 pg/mL (5-100) H 11/02/19 10:00 Total Protein 5.8 g/dL (6.7-8.2) L 11/02/19 10:00 Albumin 3.2 g/dL (3.2-5.5) 11/02/19 10:00 Globulin 2.6 g/dL (2.1-4.2) 11/02/19 10:00 Albumin/Globulin Ratio 1.2 (1.0-2.2) 11/02/19 10:00 Lipase 24 U/L (22-51) 11/02/19 10:00 Urine Color YELLOW 11/02/19 10:45 Urine Clarity CLEAR (CLEAR) 11/02/19 10:45 Urine pH 8.0 PH (5.0-7.5) H 11/02/19 10:45 Ur Specific Superior 1.010 (1.002-1.030) 11/02/19 10:45 Urine Protein NEGATIVE mg/dL (NEGATIVE) 11/02/19 10:45 Urine Glucose (UA) NEGATIVE mg/dL (NEGATIVE) 11/02/19 10:45 Urine Ketones NEGATIVE mg/dL (NEGATIVE) 11/02/19 10:45 Urine Occult Blood NEGATIVE (NEGATIVE) 11/02/19 10:45 Urine Nitrite NEGATIVE (NEGATIVE) 11/02/19 10:45 Urine Bilirubin NEGATIVE (NEGATIVE) 11/02/19 10:45 Urine Urobilinogen 0.2 (NORMAL) E.U./dL (NORMAL) 11/02/19 10:45 Ur Leukocyte Esterase TRACE (NEGATIVE) H 11/02/19 10:45 Urine RBC 0-5 /HPF (0-5) 11/02/19 10:45 Urine WBC 0-3 /HPF (0-5) 11/02/19 10:45 Ur Squamous Epith Cells FEW Squamous (<= Few) 11/02/19 10:45 Urine Bacteria Rare /HPF (None Seen) 11/02/19 10:45 Ur Microscopic Review INDICATED 11/02/19 10:45 Urine Culture Comments INDICATED 11/02/19 10:45 - Procedures Procedures: Procedures ASSIST W CARDIAC OUTPUT W PULS COMPRESSION, CONTINUOUS (07/13/15) ASSISTANCE WITH RESPIRATORY VENTILATION, 24-96 HRS, CPAP (07/13/15) DRAINAGE OF R PLEURAL CAV WITH DRAIN DEV, PERC APPROACH (07/13/15) EXCISION OF LIVER, OPEN APPROACH, DIAGNOSTIC (10/03/17) INSERTION OF ENDOTRACHEAL AIRWAY INTO TRACHEA, VIA OPENING (07/13/15) INSERTION OF INFUSION DEV INTO SUP VENA CAVA, PERC APPROACH (07/13/15) INSPECTION OF UPPER INTESTINAL TRACT, ENDO (01/21/18) INTRODUCTION OF NUTRITIONAL INTO CENTRAL VEIN, PERC APPROACH (07/13/15) MONITORING OF VENOUS PRESSURE, CENTRAL, PERC APPROACH (07/13/15) REPAIR LEFT INGUINAL REGION, OPEN APPROACH (10/03/17) RESECTION OF APPENDIX, OPEN APPROACH (07/13/15) RESECTION OF BILATERAL FALLOPIAN TUBES, OPEN APPROACH (10/03/17) RESECTION OF BILATERAL OVARIES, OPEN APPROACH (10/03/17) RESECTION OF UTERUS, OPEN APPROACH (10/03/17) RESPIRATORY VENTILATION, 24-96 CONSECUTIVE HOURS (07/13/15) TRANSFUSE NONAUT RED BLOOD CELLS IN PERIPH VEIN, PERC (01/21/18)
[2019-11-05] MEDS: SODIUM CHLORIDE FLUSH 0.9% 10 ML SYRINGE IVP SCH ×2 (00:21→08:54)
[2019-11-05] MEDS: LORazepam 1 MG TABLET PO PRN ×3 (00:23→13:13)
[2019-11-05 05:24] LABS: BASOPHILS % (AUTO) 0.1 %; EOSINOPHILS % (AUTO) 0.1 %; HGB - HEMOGLOBIN 13.1 g/dL (12.0-16.0); LYMPHOCYTES # (AUTO) 1.3 10^3/uL (1.5-3.5); MEAN CORPUSCULAR HEMOGLOBIN 27.3 pg (27.0-31.0); MEAN CORPUSCULAR HGB CONC 29.1 g/dL (32.0-36.0); MEAN CORPUSCULAR VOLUME 93.9 fL (81.0-99.0); MONOCYTES # (AUTO) 0.8 10^3/uL (0.0-1.0); MONOCYTES % (AUTO) 9.3 %; NEUTROPHILS # (AUTO) 6.5 10^3/uL (1.5-6.6); NEUTROPHILS % (AUTO) 74.9 %; PLT - PLATELET COUNT 241 10^3/uL (130-450); RED BLOOD COUNT 4.79 10^6/uL (4.20-5.40); RED CELL DISTRIBUTION WIDTH 15.3 % (12.0-15.0); WHITE BLOOD COUNT 8.7 x10^3/uL (4.8-10.8)
[2019-11-05 05:34] LABS: CALCIUM 8.3 mg/dL (8.5-10.3); CREATININE 0.5 mg/dL (0.4-1.0); PHOSPHORUS 2.4 mg/dL (2.5-4.6)
[2019-11-05] MEDS: valACYclovir 500 MG TABLET PO SCH (05:38)
[2019-11-05] MEDS: FORMOTEROL FUMARATE NEB 20 MCG/2 ML INH SCH (07:51)
[2019-11-05] MEDS: IPRATROPIUM/ALBUTEROL 3 ML NEB INH SCH (07:51)
[2019-11-05] MEDS: BUDESONIDE 0.5 MG/2 ML NEB INH SCH (07:51)
[2019-11-05] MEDS: polyethylene glycoL 3350 17 GM PACKET PO SCH (08:48)
[2019-11-05] MEDS: METOPROLOL SUCCINATE 50 MG TABLET PO SCH (08:49)
[2019-11-05] MEDS: diltiaZEM CD 180 MG CAPSULE PO SCH (08:49)
[2019-11-05] MEDS: guaiFENesin 600 MG TABLET PO SCH (08:49)
[2019-11-05] MEDS: NICOTINE 14 MG PATCH TOP SCH (08:50)
[2019-11-05] MEDS: GABAPENTIN 100 MG CAPSULE PO SCH ×2 (08:50→13:13)
[2019-11-05] MEDS: DOCUSATE SODIUM 250 MG CAPSULE PO SCH (08:50)
[2019-11-05] MEDS: APIXABAN 5 MG TABLET PO SCH (08:50)
[2019-11-05] MEDS: MONTELUKAST 10 MG TABLET PO SCH (08:50)
--- NOTE | 2019-11-05 09:06 | DISCHARGE SUMMARY ---
Discharge Summary Admit Date: 11/02/19 Discharge Date: 11/05/19 Discharging Provider: Dr Clarissa Bennett Primary Care Provider: Dr Mark Reinoso Code Status: Attempt Resuscitation Condition at Discharge: Fair Discharge Disposition: 01 Home, Self Care - HPI History of Present Illness: From the admission H&P of Dr. Randell Monahansef: This is a 63-year-old female with a history of COPD on 1 L of oxygen at rest and 3 L with exertion, atrial fibrillation, diastolic heart failure, severe mitral regurgitation who presents today complaining of shortness of breath. The patient was discharged from the hospital yesterday after being treated for COPD exacerbation. Her hospital course was complicated by concern for stroke given encephalopathy which was attributed to hypercapnic respiratory failure. At that time, her heart rate had been difficult to control and her Cardizem and metoprolol were titrated. Patient states that she did well at home yesterday evening and her home oxygen was delivered to her. She states this morning when she woke up she could not breathe. When EMS arrived there, they noted that her oxygen saturations were in the 80s. It was found that her oxygen had not been set up properly and although she was using a nasal cannula, the oxygen was turned off. She reports she not taken any of her medications today. She does currently feel short of breath. She denies any palpitations or chest pain. She does complain of some epigastric pain which is chronic for her as been present for 3 years. Denies any fevers or chills. Denies any dysuria, urgency. In the emergency department, she is on to be tachycardic and in atrial fibri llation with heart rate in the 140s. She was also tachypneic with a respiratory rate in the high 20s. She was placed on oxygen with improvement of her oxygen saturations. She was given 20 mg of diltiazem IV with slight improvement of her heart rates into the 120s. She underwent a CT angiogram which was a poor study but did not show any obvious pulmonary embolism or infiltrate. Given her atrial fibrillation and dyspnea, the Hospitalist Team was consulted for admission. I did discuss goals of care with the patient again and she states that she signed a POLST form during her last recent hospitalization and since that time she wants to be a full code. - HOSPITAL COURSE Hospital Course: (1) Acute on chronic respiratory failure with hypoxia and hypercapnia There is no wheezing at presentation but she would be dyspneic with minimal act ivity. She needed further adjustment of meds for Afib with RVR, which may have caused the SOB. In addition, it was noted that the wall plug that her nre O2 concentrator was plugged into was shorted out, the entire first night she was home. RT urged her to get the Trilogy machine ELA to help ventilate, so she can get instructed on its use. (2) Chronic heart failure with preserved ejection fraction We continued and increased her B-cadence, decreased Lasix, as discussed below. (3) COPD Continued nebs on schedule. No steroids were needed, as there was no exacerbation. (4) Lethargy On 11/04/2019, the day of expected discharge, she complained of nausea and appeared fatigued and very lethargic which was a similar presentation to her last admission when she was considered to be having a stroke but finally was diagnosed with CO2 narcosis. At this time, she was on 2 L of oxygen at rest and saturating at 94 to 96%. A blood gas was obtained therefore to look for CO2 narcosis which was confirmed. Her oxygen setting was turned down to 1 L at rest therefore. She was not discharged on that day. Over the subsequent 6 hours she became much less lethargic. RT gave her education on proper nasal cannula settings. (5) CO2 narcosis ABG done when she was lethargic showed pH 7.3, PCO2 72, PO2 68 with a 91% saturation. She again seemed to be having CO2 narcosis. Her oxygen setting was turned down to 1 L at rest therefore ans she had slow improvement in alertness. She needs that Trilogy machine, to help ventilate. RT called the company who confirmed that the patient qualified for a Trilogy machine. The respiratory company offered to come and teach her how to use it here or at home. The patient refused for them to come here and wanted it delivered to her house. (6) Nausea Zofran and Compazine improved her symptoms. She has no appetite when she was lethargic, only took sips. Her nausea is intermittent along with her chronic abdominal pain which is been there for years, and she even needs to eat in a certain laying position. (7) Atrial fibrillation with RVR When she is walking, heart rate rises to the 130s, at rest she has a heart rate of 90 in A. fib. She is on her Cardizem CD 360 daily and we increased slightly her beta-cadence from daily to twice daily. She remains on Eliquis for stroke prevention. (8) Hyponatremia Her sodium was . She is on daily p.o. Lasix, and she may be having more salt loss than water loss. Therefore Lasix was decreased from daily to every other day. (9) Shingles She is on relatively new Valacyclovir which was continued here, and isolation for those without antibodies. (10) Chronic pain She gets chronic abdominal pain, years of work-up showed no obvious etiology, she knows how to adjust her body when taking p.o. diet to diminish her symptoms and she takes Gabapentin. - ALLERGIES Allergies/Adverse Reactions: Allergies Allergy/AdvReac Type Severity Reaction Status Date / Time iron Allergy Unknown Verified 11/06/19 09:05 steroids Allergy Unknown Uncoded 11/06/19 09:05 - MEDICATIONS Home Medications: Ambulatory Orders Medication Instructions Recorded Confirmed Ipratropium/Albuterol [Combivent 1 puffs INH QID PRN 03/18/17 11/02/19 Respimat] Albuterol 2.5 mg INH Q4H PRN 04/18/17 11/02/19 Fluticasone/Salmeterol [Advair 1 inh INH BID 06/18/19 11/02/19 250-50 Diskus] Gabapentin 100 mg PO QID 06/18/19 11/02/19 LORazepam [Lorazepam] 1 mg PO TID PRN 06/18/19 11/02/19 Ipratropium/Albuterol [Duoneb] 3 ml INH BID 10/23/19 11/02/19 Apixaban [Eliquis] 5 mg PO BID #60 tablet 11/01/19 11/02/19 Furosemide 20 mg PO DAILY #30 tablet 11/01/19 11/02/19 Saliva Substitute Comb. No.12 30 ml MM Q4H #1 spray.pump 11/01/19 11/02/19 [Oral Relief Dry Mouth] Tiotropium Hayes [Spiriva] 1 puffs INH DAILY 30 Days #5 each 11/01/19 11/02/19 dilTIAZem HCl [Diltiazem 24Hr ER 360 mg PO DAILY #30 cap.er.24h 11/01/19 11/02/19 (Cd)] Metoprolol Succinate [Toprol Xl] 50 mg PO BID #60 tablet 11/04/19 Montelukast Sodium 10 mg PO QPM #0 11/04/19 11/02/19 Nicotine 14 mg Patch [Nicoderm] 1 patch TOP DAILY #7 patch 11/04/19 guaiFENesin [Mucinex] 600 mg PO BID #60 tablet 11/04/19 Nicotine 7 mg Patch [Nicoderm] 1 each TOP Q24H #7 patch 11/05/19 - PHYSICAL EXAM AT DISCHARGE General Appearance: positive: No acute distress, Alert Eyes Bilateral: positive: Normal inspection, EOMI ENT: positive: ENT inspection nml, No signs of dehydration Neck: positive: Nml inspection, No JVD Respiratory: positive: No respiratory distress, Breath sounds nml Cardiovascular: positive: No murmur, Irregularly irregular Abdomen: positive: Non-tender, Other (Pannus) Skin: positive: Other (Several ecchymoses of arms and small purpura of ankles (since on Eliquis).) Neurologic/Psychiatric: positive: Oriented x3, Other (Non-focal) - LABS Result Diagrams: 11/05/19 05:10 11/05/19 05:10 - FOLLOW UP Follow Up: See Dr Reinoso later this week. - TIME SPENT Time Spent in Discharge (Minutes): 45
[2019-11-05 12:19] VITALS: BP 101/81
[2019-11-06] MEDS ORDERED: FUROSEMIDE 20 MG TABLET PO SCH (09:00)
== END 2019-11-05 13:50 | disposition home or self-care (01) | DRG 189 ==
LOC: EDBD → EDUNIT# → ED 07:26 → MS2 13:25 → OBSVTOIN 11-04 15:58
PROVIDERS: ADMIT Internal Medicine; ATTEND Internal Medicine
DX: J96.22 Acute and chronic respiratory failure with hypercapnia (principal); I50.32 Chronic diastolic (congestive) heart failure; E87.2 Acidosis; E87.1 Hypo-osmolality and hyponatremia; I48.91 Unspecified atrial fibrillation; J96.21 Acute and chronic respiratory failure with hypoxia; I11.0 Hypertensive heart disease with heart failure; J44.9 Chronic obstructive pulmonary disease, unspecified; F41.9 Anxiety disorder, unspecified; G89.29 Other chronic pain; R10.13 Epigastric pain; B02.9 Zoster without complications; Z99.81 Dependence on supplemental oxygen; Z79.51 Long term (current) use of inhaled steroids; Z85.42 Personal history of malignant neoplasm of other parts of uterus; Z87.891 Personal history of nicotine dependence
CPT/HCPCS: 36415; 36600; 71275; 80048; 80053; 81001; 82550; 82553; 82803; 83605; 83690; 83735; 83880; 84100; 85025; 87040; 87086; 93005; 94640; 94761; 96374; 96375; 99284; 99285; A9270; G0378; J7626; J8499; Q9967; 81003

== ENCOUNTER 2020-03-15 12:00 | Outpatient (CLI) | payer MEDICARE | END 2020-03-15 12:01 | disposition critical access hospital (66) | LOC: EMS 12:00 | PROVIDERS: ATTEND Surgery | DX: R06.00 Dyspnea, unspecified (principal); J02.9 Acute pharyngitis, unspecified; R12 Heartburn | CPT/HCPCS: A0425; A0427 ==

== ENCOUNTER 2020-03-15 12:22 | Inpatient (IN) | payer MEDICARE ==
[2020-03-15] MEDS ORDERED: HYDROmorphone 1 MG/ML CARPUJECT IVP STA (12:27)
[2020-03-15] MEDS ORDERED: ALBUTEROL NEB 2.5 MG/3 ML INH STA ×2 (12:27→13:39)
[2020-03-15] MEDS ORDERED: methylPREDNISolone SUCCINATE 125 MG/2 ML VIAL IVP STA (12:28)
[2020-03-15] MEDS ORDERED: DILTIAZEM 50 MG/10 ML VIAL IVP STA ×2 (12:30→19:48)
--- NOTE | 2020-03-15 12:30 | ED Physician Documentation ---
History of Present Illness - Stated complaint Stated Complaint: SOA - History obtained from History obtained from: Patient, EMS - Additonal information Additional information: This is a 64-year-old woman with history of COPD on 1 L of oxygen at home, 3 L with exertion. She has a history of atrial fibrillation, diastolic heart failure, severe mitral regurgitation. She presents by ambulance to the emergency department today for 4 to 5 days of shortness of breath with a productive cough, sometimes clear and sometimes more thick. There is some burning anterior chest pain with it. Also a sore throat. No reported fevers. She denies pedal edema or calf pain. She received a Combivent in route with some improvement in her breathing but not much. She was noted on the way here to be in atrial fibrillation with rapid ventricular response with a heart rate as high as 160. 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 PRIVATE: Uterine cancer : None HEENT: None Psych: Anxiety Musculoskeletal: None Derm: None - Past Surgical History Past Surgical History: No General: Appendectomy /INSTRUCTOR PRIVATE: Hysterectomy, Oophrectomy HEENT: Tonsil/Adenoidectomy - Present Medications Home Medications: Ambulatory Orders Medication Instructions Recorded Confirmed Ipratropium/Albuterol [Combivent 1 puffs INH QID PRN 03/18/17 11/02/19 Respimat] Albuterol 2.5 mg INH Q4H PRN 04/18/17 11/02/19 Fluticasone/Salmeterol [Advair 1 inh INH BID 06/18/19 11/02/19 250-50 Diskus] Gabapentin 100 mg PO QID 06/18/19 11/02/19 LORazepam [Lorazepam] 1 mg PO TID PRN 06/18/19 11/02/19 Ipratropium/Albuterol [Duoneb] 3 ml INH BID 10/23/19 11/02/19 Apixaban [Eliquis] 5 mg PO BID #60 tablet 11/01/19 11/02/19 Furosemide 20 mg PO DAILY #30 tablet 11/01/19 11/02/19 Saliva Substitute Comb. No.12 30 ml MM Q4H #1 spray.pump 11/01/19 11/02/19 [Oral Relief Dry Mouth] Tiotropium [place] [Spiriva] 1 puffs INH DAILY 30 Days #5 each 11/01/19 11/02/19 dilTIAZem HCl [Diltiazem 24Hr ER 360 mg PO DAILY #30 cap.er.24h 11/01/19 11/02/19 (Cd)] Metoprolol Succinate [Toprol Xl] 50 mg PO BID #60 tablet 11/04/19 Montelukast Sodium 10 mg PO QPM #0 11/04/19 11/02/19 Nicotine 14 mg Patch [Nicoderm] 1 patch TOP DAILY #7 patch 11/04/19 guaiFENesin [Mucinex] 600 mg PO BID #60 tablet 11/04/19 Nicotine 7 mg Patch [Nicoderm] 1 each TOP Q24H #7 patch 11/05/19 - Allergies Allergies/Adverse Reactions: Allergies Allergy/AdvReac Type Severity Reaction Status Date / Time iron Allergy Unknown Verified 03/15/20 12:26 steroids Allergy Unknown Uncoded 03/15/20 12:26 - Social History Does the pt smoke?: Yes Smoking Status: Former smoker Does the pt drink ETOH?: No Does the pt have substance abuse?: No - Immunizations Immunizations are current?: Yes - POLST Patient has POLST: No POLST Status: Full Code PD ED PE NORMAL - Vitals Vital signs reviewed: Yes - General General: Alert and oriented X 3, No acute distress - HEENT HEENT: PERRL, EOMI - Neck Neck: Supple, no meningeal sign, No bony TTP - Cardiac Cardiac: Other (Heart sounds are rapid and irregular, somewhat distant and hard to characterize because of loud respiratory noise.) - Respiratory Respiratory: Other (Mildly tachypneic with rhonchi throughout and wheezes. Decent air motion. Barrel chest.) - Abdomen Abdomen: Soft, Non tender - Back Back: No CVA TTP, No spinal TTP - Derm Derm: Normal color, Warm and dry - Extremities Extremities: No edema, No calf tenderness / cord - Neuro Neuro: Alert and oriented X 3, Normal speech Results - Vitals Vitals: Vital Signs - 24 hr 03/15/20 03/15/20 03/15/20 12:26 12:50 12:54 Temperature 36.2 C L Heart Rate 141 H 139 H 143 H Respiratory 30 H 27 H 25 H Rate Blood Pressure 108/87 H 103/75 O2 Saturation 100 97 03/15/20 03/15/20 03/15/20 13:03 13:21 13:30 Temperature 36.2 C L 36.3 C L Heart Rate 124 H 100 104 H Respiratory 33 H 30 H 30 H Rate Blood Pressure 114/94 H 113/87 H 119/93 H O2 Saturation 97 94 96 Oxygen O2 Source Nasal cannula Oxygen Flow Rate 4 - EKG (time done) 1240 Rate: Rate (enter#) (170) Rhythm: Atrial fibrillation [place]: RAD QRS: LVH Ischemia: ST depression (Laterally, probably due to rate) - Labs Labs: Laboratory Tests 03/15/20 03/15/20 03/15/20 13:00 13:00 13:00 WBC 8.1 RBC 5.12 Hgb 16.2 H Hct 49.7 H MCV 97.1 MCH 31.6 H MCHC 32.6 RDW 13.6 Plt Count 245 MPV 10.2 Neut # (Auto) 5.2 Lymph # (Auto) 2.2 Baker # (Auto) 0.6 Eos # (Auto) 0.0 Baso # (Auto) 0.0 Absolute Nucleated RBC 0.00 Nucleated RBC % 0.0 PT 16.6 H INR 1.5 H Sodium 137 Potassium 4.3 Chloride 86 L Carbon Dioxide 33 H Anion Gap 18.0 H BUN 12 Creatinine 0.7 Estimated GFR (MDRD) 84 L Glucose 103 H Calcium 9.7 Total Bilirubin 1.7 H AST 16 ALT < 10 L Alkaline Phosphatase 69 Troponin I High Sens B-Natriuretic Peptide Total Protein 6.7 Albumin 4.1 Globulin 2.6 Albumin/Globulin Ratio 1.6 Lipase 19 L 03/15/20 03/15/20 13:00 13:00 WBC RBC Hgb Hct MCV MCH MCHC RDW Plt Count MPV Neut # (Auto) Lymph # (Auto) Baker # (Auto) Eos # (Auto) Baso # (Auto) Absolute Nucleated RBC Nucleated RBC % PT INR Sodium Potassium Chloride Carbon Dioxide Anion Gap BUN Creatinine Estimated GFR (MDRD) Glucose Calcium Total Bilirubin AST ALT Alkaline Phosphatase Troponin I High Sens 7.3 B-Natriuretic Peptide 363 H Total Protein Albumin Globulin Albumin/Globulin Ratio Lipase PD MEDICAL DECISION MAKING - ED course ED course: 64-year-old woman with both heart and lung disease presents with modest respiratory distress. Lung sounds and overall examination more consistent with COPD exacerbation then COPD. Chest x-ray without signs of fluid overload or obvious pneumonia. Labs show mild contraction alkalosis, no elevated white count. After 2 nebs she was not really feeling much better. She is also received 2 divided doses of diltiazem IV push with resolution of the RVR. Troponin negative. BNP modestly elevated, But looking at old results it looks like her BNP for the last year or so has been running in the 300-600 range, so this may well be her baseline BNP. He also received some IV steroids and Rocephin. A third neb. Remained tachypneic. As such I spoke with Dr. Bennett for admission at 1:55 PM. - Critical Care Time(min): 35 Time Includes: Direct patient care, Review records, Reassess patient (Assessments after divided doses of vasoactive medications for A. fib with RVR), Document care, Coordinate care, Medical consult Data interpretation: Labs, Pulse ox Procedures included in critical care time: Peripheral IV Procedures excluded from critical care time: EKG Departure - Departure Disposition: 64 [facility] DC/Xfer Clinical Impression: Atrial fibrillation with RVR COPD (chronic obstructive pulmonary disease) Qualifiers: COPD type: COPD with acute exacerbation Qualified Code(s): J44.1 - Chronic o bstructive pulmonary disease with (acute) exacerbation Condition: Serious
[2020-03-15] MEDS: diltiaZEM INJ 5 MG/ML VIAL IVP STA ×2 (12:49→13:17)
--- NOTE | 2020-03-15 13:05 | XRAY Report ---
PROCEDURE: Chest 1 View X-Ray INDICATIONS: dyspnea TECHNIQUE: One view of the chest was acquired. COMPARISON: 10/27/2019. FINDINGS: Surgical changes and devices: None. Lungs and pleura: No pleural effusions or pneumothorax. Lungs are clear. Mediastinum: Mediastinal contours appear normal. Heart size is enlarged. Bones and chest wall: No suspicious bony lesions. Overlying soft tissues appear unremarkable. IMPRESSION: No acute cardia pulmonary pathology. Reviewed by: Jalen Judge MD on 03/15/2020 12:04 PM [email or web address] Approved by: Jalen Judge MD on 03/15/2020 12:04 PM [facility] Station ID: [id number]
[2020-03-15 13:10] LABS: BASOPHILS % (AUTO) 0.4 %; HGB - HEMOGLOBIN 16.2 g/dL (12.0-16.0); LYMPHOCYTES # (AUTO) 2.2 10^3/uL (1.5-3.5); MEAN CORPUSCULAR HEMOGLOBIN 31.6 pg (27.0-31.0); MEAN CORPUSCULAR HGB CONC 32.6 g/dL (32.0-36.0); MEAN CORPUSCULAR VOLUME 97.1 fL (81.0-99.0); MEAN PLATELET VOLUME 10.2 fL (7.9-10.8); MONOCYTES # (AUTO) 0.6 10^3/uL (0.0-1.0); MONOCYTES % (AUTO) 7.9 %; NEUTROPHILS # (AUTO) 5.2 10^3/uL (1.5-6.6); NEUTROPHILS % (AUTO) 64.6 %; PLT - PLATELET COUNT 245 10^3/uL (130-450); RED BLOOD COUNT 5.12 10^6/uL (4.20-5.40); RED CELL DISTRIBUTION WIDTH 13.6 % (12.0-15.0); WHITE BLOOD COUNT 8.1 x10^3/uL (4.8-10.8)
[2020-03-15 13:15] LABS: INR 1.5 (0.8-1.2); PT - PROTHROMBIN TIME 16.6 secs (9.9-12.6)
[2020-03-15 13:26] LABS: ALBUMIN 4.1 g/dL (3.2-5.5); ALBUMIN/GLOBULIN RATIO 1.6 (1.0-2.2); ALKALINE PHOSPHATASE 69 IU/L (42-121); ALT ALANINE AMINOTRANSFERASE < 10 IU/L (10-60); AST ASPARTATE AMINOTRANSFERASE 16 IU/L (10-42); BILIRUBIN,TOTAL 1.7 mg/dL (0.2-1.0); BUN - BLOOD UREA NITROGEN 12 mg/dL (6-20); CALCIUM 9.7 mg/dL (8.5-10.3); CARBON DIOXIDE - CO2 33 mmol/L (21-32); CHLORIDE 86 mmol/L (101-111); CREATININE 0.7 mg/dL (0.4-1.0); GLUCOSE 103 mg/dL (70-100); LIPASE 19 U/L (22-51); SODIUM 137 mmol/L (135-145); TOTAL PROTEIN 6.7 g/dL (6.7-8.2)
[2020-03-15] MEDS ORDERED: cefTRIAXone 2 GM in SODIUM CHLORIDE 0.9% MINIBAG 100 ML IV STA (13:39)
[2020-03-15] MEDS ORDERED: METOCLOPRAMIDE 10 MG/2 ML VIAL IVP STA (14:02)
[2020-03-15] MEDS ORDERED: ONDANSETRON 4 MG/2 ML VIAL IVP PRN (16:53)
[2020-03-15] MEDS ORDERED: LEVALBUTEROL 1.25 MG/3 ML NEB INH PRN (17:00)
[2020-03-15] MEDS ORDERED: ZOLPIDEM 5 MG TABLET PO PRN (17:50)
--- NOTE | 2020-03-15 17:52 | PHARMACY PROGRESS NOTE ---
- Best Possible Medication History Admit Date and Time: 03/15/20 1548 Processed by: Pharmacy Medication History completed: Yes Patient Interview: Completed Secondary Source(s): Physician records (PATIENT STATES SHE DOES NOT KNOW WHAT HER HOME MEDICATIONS ARE. MEDICATION RECONCILIATION DONE USING INSURANCE AND PROVIDER RECORDS), Pharmacy records, Insurance records As the person ultimately responsible for medication therapy, providers are able to order a medication from an existing home medication list in [facility] via the "Reconcile Routine" prior to Confirmation of that medication by claims support specialist. Such practice is discouraged except when the physician, in their clinical judgment, deems that a medical need exists for a medication without regard to previous use.
[2020-03-15] MEDS: AZITHROMYCIN 250 MG TABLET PO SCH (17:53)
[2020-03-15] MEDS: ACETAMINOPHEN 325 MG TABLET PO PRN (17:53)
[2020-03-15] MEDS: SODIUM CHLORIDE FLUSH 0.9% 10 ML SYRINGE IVP SCH (17:55)
[2020-03-15] MEDS: D5NS W/20 MEQ KCL 1,000 ML IV SCH (17:55)
--- NOTE | 2020-03-15 18:37 | HISTORY & PHYSICAL EXAMINATION ---
DATE OF SERVICE: 03/15/2020 Physician: Clarissa Bennett MD HISTORY OF PRESENT ILLNESS: This is a 64-year-old white female with a history of severe COPD, on oxy gen at home and a Trilogy mask ever since her last hospitalization in 10/2019. She has a history of chronic atrial fibrillation, on Eliquis, diastolic heart failure, severe mitral regurgitation, histor y of CO2 narcosis. The patient presents with complaint of 4-5 days of cough with worsening shortness of breath each day. She has no fever. She presented to the ER and was found to have atrial fibrill ation with rapid ventricular response with a rate of 170. She received IV diltiazem 20 mg x2 and hea rt rate has improved into the 100-110 range. She is being admitted for COPD exacerbation and atrial fibrillation with rapid ventricular response. PAST MEDICAL HISTORY: Chronic atrial fibrillation, on Eliquis, diastolic heart failure and severe mi tral regurgitation, COPD with home oxygen and a home Trilogy mask, history of CO2 narcosis and confus ion with this. ALLERGIES: IRON. MEDICATIONS 1. Advair spray b.i.d. 2. Albuterol inhaler q.4 hours p.r.n. 3. DuoNeb inhaler b.i.d. and q.i.d. p.r.n. 4. Gabapentin 100 mg q.i.d. 5. Lorazepam 1 mg t.i.d. p.r.n. anxiety. 6. Diltiazem CD 360 mg daily. 7. Toprol-XL 50 mg b.i.d. 8. Eliquis 5 mg b.i.d. 9. Lasix 20 mg daily. 10. Montelukast 10 mg every night. 11. Guaifenesin p.r.n. 12. Nicotine patch if needed. 13. Spiriva inhaler daily. REVIEW OF SYSTEMS: A comprehensive review of systems was performed and the pertinent positives are l isted, the rest are negative. FAMILY HISTORY: Her mother had COPD. No other inherited diseases. SOCIAL HISTORY: The patient lives alone, is a . She smoked until about a year ago. She denies any alcohol use. PHYSICAL EXAM GENERAL: Thin, elderly white female. She is in moderate respiratory distress. VITAL SIGNS: Blood pressure 121/85, heart rate 110 in atrial fibrillation. She has an oral temperat ure of 36.2. Respiratory rate is 27, O2 saturation 92% on nasal cannula oxygen. HEENT: Her oral mucosa is dry. Her lips appear cyanotic. NECK: Positive JVD in a vertical position. CHEST: Diffuse wheezing and prolonged expiratory phase. HEART: Tachycardiac. ABDOMEN: Nontender, scaphoid. EXTREMITIES: No clubbing, cyanosis or edema. NEUROLOGIC: Grossly intact. LABORATORY DATA: Sodium 137, potassium 4.3, carbon dioxide 33, anion gap 18, BUN 12, creatinine 0.7, glucose 103. Bilirubin 1.7. Liver tests normal. Troponin normal at 7.3. BNP 363. Lipase normal. The INR was 1.5, but this is not accurate in a patient on Eliquis and means nothing. White blood c ount 8.1, hemoglobin 16.2, platelet count normal at 245. Arterial blood gas was done that showed pH 7.3, pCO2 of 73, pO2 of 68 with a saturation of 92%. Urinalysis showed pH of 8, trace of leukocyte e sterase and rare bacteria, and a culture was indicated. IMAGING: Chest x-ray: No infiltrates. EKG: Atrial fibrillation with a rapid rate and nonspecific ST-T changes. IMPRESSION 1. Chronic obstructive pulmonary disease exacerbation. 2. Respiratory acidosis. 3. Atrial fibrillation with rapid ventricular response. 4. Dehydration, which is probably adding to the rapid heart rate. 5. Possible urinary tract infection. PLAN: Admit the patient to med/surg status on telemetry. Continue with her Cardizem and her beta 1 selective beta cadence for rate control and continue her Eliquis for stroke prophylaxis in a patient with atrial fibrillation. Begin IV fluids. Follow her BMP daily. Begin nebulizer treatments using Xopenex p.r.n., Atrovent q.i.d., DuoNeb q.i.d., Pulmicort b.i.d. Continue with her montelukast. Beg in empiric treatment for bronchitis using ceftriaxone and Zithromax. The ceftriaxone was then cover potential UTI. Order her home Trilogy machine to be used here. DEEP VEIN THROMBOSIS PROPHYLAXIS: Pharmacotherapy on her Eliquis. CODE STATUS: FULL CODE. ATTESTATION: The patient is expected to be discharged or transferred to another facility within 96 h ours: Yes. cc: Mark Reinoso MD TD: 03/15/2020 17:29
[2020-03-15] MEDS ORDERED: IPRATROPIUM/ALBUTEROL 3 ML NEB INH SCH (19:00)
[2020-03-15] MEDS ORDERED: SODIUM CHLORIDE 0.9% 1,000 ML IV ONE (19:52)
[2020-03-15] MEDS: LEVALBUTEROL 1.25 MG/3 ML NEB INH SCH (19:53)
[2020-03-15] MEDS: BUDESONIDE 0.5 MG/2 ML NEB INH SCH (19:53)
[2020-03-15] MEDS: guaiFENesin 600 MG TABLET PO SCH (20:21)
[2020-03-15] MEDS: FAMOTIDINE 20 MG TABLET PO SCH (20:21)
[2020-03-15] MEDS: DABIGATRAN 75 MG CAPSULE PO SCH (20:21)
[2020-03-15] MEDS: MONTELUKAST 10 MG TABLET PO SCH (20:21)
[2020-03-15] MEDS: LORazepam 1 MG TABLET PO PRN (20:31)
[2020-03-15] MEDS ORDERED: APIXABAN 5 MG TABLET PO SCH (21:00)
[2020-03-15] MEDS ORDERED: GABAPENTIN 100 MG CAPSULE PO SCH (21:00)
[2020-03-15] MEDS ORDERED: METOPROLOL SUCCINATE 50 MG TABLET PO SCH (21:00)
[2020-03-15] MEDS ORDERED: NON FORMULARY MED (Dabigatran Etexilate Mesylate [Pradaxa] 150 MG) PO SCH (21:00)
[2020-03-15] MEDS: methylPREDNISolone SUCCINATE 40 MG/ML VIAL IVP SCH (21:08)
[2020-03-16] MEDS: LEVALBUTEROL 1.25 MG/3 ML NEB INH SCH ×4 (00:20→14:53)
[2020-03-16] MEDS: SODIUM CHLORIDE FLUSH 0.9% 10 ML SYRINGE IVP SCH ×3 (01:18→15:50)
[2020-03-16] MEDS: CALCIUM CARBONATE CHEW 500 MG TABLET PO PRN ×4 (02:18→20:39)
[2020-03-16] MEDS: IPRATROPIUM 0.2 MG/ML NEB INH SCH ×5 (02:36→20:48)
[2020-03-16] MEDS: D5NS W/20 MEQ KCL 1,000 ML IV SCH ×2 (04:24→15:50)
[2020-03-16] MEDS: LORazepam 1 MG TABLET PO PRN ×2 (04:24→13:20)
[2020-03-16] MEDS: BENZOCAINE/MENTHOL LOZENGE MM PRN (04:30)
[2020-03-16] MEDS: BENZONATATE 100 MG CAPSULE PO PRN ×3 (04:30→16:43)
[2020-03-16] MEDS: methylPREDNISolone SUCCINATE 40 MG/ML VIAL IVP SCH ×3 (05:27→21:20)
[2020-03-16] MEDS: SODIUM CHLORIDE FLUSH 0.9% 10 ML SYRINGE IVP PRN ×2 (05:27→14:31)
[2020-03-16] MEDS: BUDESONIDE 0.5 MG/2 ML NEB INH SCH ×2 (08:20→20:49)
[2020-03-16] MEDS ORDERED: ENOXAPARIN 40 MG/0.4 ML SYRINGE SUBQ SCH (09:00)
[2020-03-16] MEDS ORDERED: diltiaZEM CD 240 MG CAPSULE PO SCH (09:00)
--- NOTE | 2020-03-16 09:02 | PROVIDER PROGRESS NOTE ---
Objective - Vital Signs/Intake & Output Vital Signs: Vital Signs x48h Temp Pulse Pulse Resp BP Pulse Ox 03/16/20 08:20 154 H 22 03/16/20 04:31 36.5 C 78 19 110/69 90 L Intake & Output: Intake & Output 03/13/20 03/14/20 03/15/20 03/16/20 23:59 23:59 23:59 23:59 Intake Total 2024 710 Balance 2024 710 - Lab Results Fish Bones: 03/15/20 13:00 03/15/20 13:00 Other Labs: Lab Results x24hrs 03/15/20 03/15/20 03/15/20 Range/Units 13:00 13:00 13:00 WBC (4.8-10.8) x10^3/uL RBC (4.20-5.40) 10^6/uL Hgb (12.0-16.0) g/dL Hct (37.0-47.0) % MCV (81.0-99.0) fL MCH (27.0-31.0) pg MCHC (32.0-36.0) g/dL RDW (12.0-15.0) % Plt Count (130-450) 10^3/uL MPV (7.9-10.8) fL Neut # (Auto) (1.5-6.6) 10^3/uL Lymph # (Auto) (1.5-3.5) 10^3/uL [place] # (Auto) (0.0-1.0) 10^3/uL Eos # (Auto) (0.0-0.7) 10^3/uL Baso # (Auto) (0.0-0.1) 10^3/uL Absolute Nucleated RBC x10^3/uL Nucleated RBC % /100WBC PT (9.9-12.6) secs INR (0.8-1.2) Sodium 137 (135-145) mmol/L Potassium 4.3 (3.5-5.0) mmol/L Chloride 86 L (101-111) mmol/L Carbon Dioxide 33 H (21-32) mmol/L Anion Gap 18.0 H (6-13) BUN 12 (6-20) mg/dL Creatinine 0.7 (0.4-1.0) mg/dL Estimated GFR (MDRD) 84 L (>89) Glucose 103 H (70-100) mg/dL Calcium 9.7 (8.5-10.3) mg/dL Total Bilirubin 1.7 H (0.2-1.0) mg/dL AST 16 (10-42) IU/L ALT < 10 L (10-60) IU/L Alkaline Phosphatase 69 (42-121) IU/L Troponin I High Sens 7.3 (2.3-14.8) ng/L B-Natriuretic Peptide 363 H (5-100) pg/mL Total Protein 6.7 (6.7-8.2) g/dL Albumin 4.1 (3.2-5.5) g/dL Globulin 2.6 (2.1-4.2) g/dL Albumin/Globulin Ratio 1.6 (1.0-2.2) Lipase 19 L (22-51) U/L 03/15/20 03/15/20 Range/Units 13:00 13:00 WBC 8.1 (4.8-10.8) x10^3/uL RBC 5.12 (4.20-5.40) 10^6/uL Hgb 16.2 H (12.0-16.0) g/dL Hct 49.7 H (37.0-47.0) % MCV 97.1 (81.0-99.0) fL MCH 31.6 H (27.0-31.0) pg MCHC 32.6 (32.0-36.0) g/dL RDW 13.6 (12.0-15.0) % Plt Count 245 (130-450) 10^3/uL MPV 10.2 (7.9-10.8) fL Neut # (Auto) 5.2 (1.5-6.6) 10^3/uL Lymph # (Auto) 2.2 (1.5-3.5) 10^3/uL [place] # (Auto) 0.6 (0.0-1.0) 10^3/uL Eos # (Auto) 0.0 (0.0-0.7) 10^3/uL Baso # (Auto) 0.0 (0.0-0.1) 10^3/uL Absolute Nucleated RBC 0.00 x10^3/uL Nucleated RBC % 0.0 /100WBC PT 16.6 H (9.9-12.6) secs INR 1.5 H (0.8-1.2) Sodium (135-145) mmol/L Potassium (3.5-5.0) mmol/L Chloride (101-111) mmol/L Carbon Dioxide (21-32) mmol/L Anion Gap (6-13) BUN (6-20) mg/dL Creatinine (0.4-1.0) mg/dL Estimated GFR (MDRD) (>89) Glucose (70-100) mg/dL Calcium (8.5-10.3) mg/dL Total Bilirubin (0.2-1.0) mg/dL AST (10-42) IU/L ALT (10-60) IU/L Alkaline Phosphatase (42-121) IU/L Troponin I High Sens (2.3-14.8) ng/L B-Natriuretic Peptide (5-100) pg/mL Total Protein (6.7-8.2) g/dL Albumin (3.2-5.5) g/dL Globulin (2.1-4.2) g/dL Albumin/Globulin Ratio (1.0-2.2) Lipase (22-51) U/L
[2020-03-16] MEDS: AZITHROMYCIN 250 MG TABLET PO SCH (09:17)
[2020-03-16] MEDS: FAMOTIDINE 20 MG TABLET PO SCH ×2 (09:17→20:39)
[2020-03-16] MEDS: diltiaZEM CD 240 MG CAPSULE PO SCH (09:17)
[2020-03-16] MEDS: DABIGATRAN 75 MG CAPSULE PO SCH ×2 (09:18→20:39)
[2020-03-16] MEDS: METOPROLOL SUCCINATE 50 MG TABLET PO SCH (09:18)
[2020-03-16] MEDS: guaiFENesin 600 MG TABLET PO SCH ×2 (09:20→21:20)
[2020-03-16] MEDS: cefTRIAXone 2 GM in SODIUM CHLORIDE 0.9% MINIBAG 100 ML IV SCH (09:21)
[2020-03-16] MEDS: NICOTINE 14 MG PATCH TOP SCH (09:27)
[2020-03-16 09:43] LABS: BASOPHILS % (AUTO) 0.2 %; HGB - HEMOGLOBIN 13.5 g/dL (12.0-16.0); LYMPHOCYTES # (AUTO) 0.4 10^3/uL (1.5-3.5); LYMPHOCYTES % (AUTO) 8.7 %; MEAN CORPUSCULAR HGB CONC 31.2 g/dL (32.0-36.0); MEAN CORPUSCULAR VOLUME 99.5 fL (81.0-99.0); MEAN PLATELET VOLUME 10.1 fL (7.9-10.8); MONOCYTES # (AUTO) 0.1 10^3/uL (0.0-1.0); NEUTROPHILS # (AUTO) 4.6 10^3/uL (1.5-6.6); NEUTROPHILS % (AUTO) 89.9 %; PLT - PLATELET COUNT 205 10^3/uL (130-450); RED BLOOD COUNT 4.35 10^6/uL (4.20-5.40); RED CELL DISTRIBUTION WIDTH 13.7 % (12.0-15.0); WHITE BLOOD COUNT 5.1 x10^3/uL (4.8-10.8)
[2020-03-16 09:57] LABS: CALCIUM 8.5 mg/dL (8.5-10.3); CREATININE 0.7 mg/dL (0.4-1.0); MAGNESIUM 1.5 mg/dL (1.7-2.8); PHOSPHORUS 2.6 mg/dL (2.5-4.6)
[2020-03-16] MEDS ORDERED: METOPROLOL 5 MG/5 ML VIAL IVP STA (10:30)
[2020-03-16] MEDS: MONTELUKAST 10 MG TABLET PO SCH (20:39)
[2020-03-16] MEDS: LEVALBUTEROL 1.25 MG/3 ML NEB INH PRN (20:48)
[2020-03-16] MEDS ORDERED: MAGNESIUM SULFATE 2 GRAM 2 GM/50 ML BAG IV ONE (21:43)
--- NOTE | 2020-03-16 21:49 | PROVIDER PROGRESS NOTE ---
Assessment/Plan - Problem List (1) Atrial fibrillation with RVR Assessment/Plan: On diltiazem 240 mg p.o. daily. Patient's heart rate fluctuates between 110-130's Metoprolol 5 mg IV every 4 hours ordered for heart rate greater than 120. Continue her Pradaxa 150 mg p.o. twice daily Patient's Solu-Medrol has been discontinued. (2) COPD exacerbation Assessment/Plan: Patient is breathing much better today. She is currently on 2 L of oxygen via nasal cannula. She normally uses 1 L of oxygen at home at rest and 2 L with activity. She is not on the trilogy due to cost Solu-Medrol has been discontinued tonight due to the likelihood it is contributing to her atrial fibrillation with rapid ventricular rhythm She is on budesonide twice daily. Xopenex every 4 hours Continue her azithromycin and Rocephin - Current Meds Current Meds: Current Medications Generic Name Dose Route Start Last Admin Trade Name Freq PRN Reason Stop Dose Admin Acetaminophen 650 mg 03/15/20 16:53 03/15/20 17:53 Tylenol PO 650 mg Q4HR PRN Administration Pain or Fever > 38C (100.4F) Azithromycin 500 mg 03/15/20 17:05 03/16/20 09:17 Zithromax PO 03/18/20 00:00 500 mg DAILY MATTHEW Administration Benzonatate 100 mg 03/16/20 03:15 03/16/20 16:43 Tessalon PO 100 mg TID PRN Administration Cough Budesonide 0.5 mg 03/15/20 19:00 03/16/20 20:49 Pulmicort INH 0.5 mg RTBID MATTHEW Administration Calcium Carbonate/Glycine 500 mg 03/16/20 01:25 03/16/20 20:39 Tums PO 500 mg TID PRN Administration Heartburn Dabigatran 150 mg 03/15/20 21:00 03/16/20 20:39 Pradaxa PO 150 mg BID MATTHEW Administration Diltiazem HCl 240 mg 03/16/20 09:00 03/16/20 09:17 Cardizem Cd PO 240 mg DAILY MATTHEW Administration Famotidine 20 mg 03/15/20 21:00 03/16/20 20:39 Pepcid PO 20 mg BID MATTHEW Administration Guaifenesin 600 mg 03/15/20 21:00 03/16/20 21:20 Mucinex PO 600 mg BID MATTHEW Administration Potassium Chloride/Dextrose/Sod Cl 1,000 mls @ 100 mls/hr 03/15/20 17:00 03/16/20 15:50 IV 100 mls/hr .Q10H MATTHEW Administration Ceftriaxone Sodium 2 gm/ 100 mls @ 200 mls/hr 03/16/20 09:00 03/16/20 09:55 Sodium Chloride IV Infused DAILY MATTHEW Infusion Ipratropium [place] 0.5 mg 03/15/20 21:00 03/16/20 20:48 Atrovent INH 0.5 mg RTQID MATTHEW Administration Levalbuterol HCl 1.25 mg 03/16/20 17:25 03/16/20 20:48 Xopenex INH 03/21/20 17:22 1.25 mg RTQ4H PRN Administration Shortness of Air/Wheezing Lorazepam 1 mg 03/15/20 17:48 03/16/20 13:20 Ativan PO 1 mg TID PRN Administration NEEDED PER PROVIDER ORDERS Methylprednisolone 80 mg 03/15/20 22:00 03/16/20 21:20 Solu-Medrol (40mg Vial) IVP 80 mg TID MATTHEW Administration Metoprolol Succinate 50 mg 03/16/20 09:00 03/16/20 09:18 Toprol Xl PO 50 mg DAILY MATTHEW Administration Montelukast Sodium 10 mg 03/15/20 21:00 03/16/20 20:39 Singulair PO 10 mg QPM MATTHEW Administration Nicotine 1 patch 03/16/20 09:00 03/16/20 09:27 Nicoderm TOP Not Given DAILY MATTHEW Sodium Chloride 10 ml 03/15/20 16:53 03/16/20 14:31 Normal Saline Flush 0.9% IVP 10 ml PRN PRN Administration NEEDED PER PROVIDER ORDERS Sodium Chloride 10 ml 03/15/20 17:00 03/16/20 15:50 Normal Saline Flush 0.9% IVP Not Given 0100,0900,1700 MATTHEW Throat Lozenges 1 lozenge 03/16/20 03:57 03/16/20 04:30 Cepacol MM 1 lozenge Q2HR PRN Administration Throat pain - Lab Result Fish Bone Diagrams: 03/16/20 09:34 03/16/20 09:34 - Additional Planning My Orders: My Active Orders 03/16/20 01:25 Calcium Carbonate [Tums] 500 mg PO TID PRN 03/16/20 03:15 Benzonatate [Tessalon] 100 mg PO TID PRN 03/16/20 21:43 Magnesium Sulfate 2 Gram [Magnesium Sulfate] 2 gm in 50 ml IV ONCE 03/17/20 00:00 Metoprolol Inj [Lopressor Inj] 5 mg IVP Q6HR Subjective - Subjective Patient Reports: Other (Patient seen and examined today. She was awake and seated in bed at the time of my exam. She appeared to be doing quite well. She did not have any respiratory distress or conversational dyspnea. She was on 2 L of oxygen via nasal cannula. She denied feeling short of breath, denied chest pain) Objective Vital Signs: Vital Signs - 24 hr 03/16/20 03/16/20 03/16/20 00:02 00:05 04:31 Temperature 36.5 C 36.5 C Heart Rate 75 Heart Rate [ 64 78 Brachial] Heart Rate [ Monitoring electrodes] Respiratory 24 19 Rate Blood Pressure Blood Pressure 113/85 H 110/69 [Left Brachial artery] O2 Saturation 99 90 L 03/16/20 03/16/20 03/16/20 08:20 09:00 10:18 Temperature 36.4 C L Heart Rate 154 H Heart Rate [ Brachial] Heart Rate [ 132 H 145 H Monitoring electrodes] Respiratory 22 20 Rate Blood Pressure Blood Pressure 122/77 108/87 H [Left Brachial artery] O2 Saturation 92 03/16/20 03/16/20 03/16/20 10:50 10:53 10:58 Temperature Heart Rate Heart Rate [ Brachial] Heart Rate [ 134 H 131 H Monitoring electrodes] Respiratory Rate Blood Pressure 118/82 H Blood Pressure 116/91 H 114/76 [Left Brachial artery] O2 Saturation 03/16/20 03/16/20 03/16/20 11:05 11:20 11:35 Temperature Heart Rate Heart Rate [ Brachial] Heart Rate [ 128 H 135 H 130 H Monitoring electrodes] Respiratory Rate Blood Pressure Blood Pressure 113/85 H 121/89 H 116/82 H [Left Brachial artery] O2 Saturation 03/16/20 03/16/20 03/16/20 11:40 11:45 12:45 Temperature 36.7 C Heart Rate 124 H Heart Rate [ Brachial] Heart Rate [ 134 H 135 H Monitoring electrodes] Respiratory 22 18 Rate Blood Pressure Blood Pressure 118/86 H 113/85 H [Left Brachial artery] O2 Saturation 97 03/16/20 03/16/20 03/16/20 14:59 15:36 20:09 Temperature 36.6 C 37.0 C Heart Rate 120 H Heart Rate [ 115 H 115 H Brachial] Heart Rate [ Monitoring electrodes] Respiratory 20 24 24 Rate Blood Pressure Blood Pressure 123/81 H 128/93 H [Left Brachial artery] O2 Saturation 95 97 03/16/20 20:15 Temperature Heart Rate 122 H Heart Rate [ Brachial] Heart Rate [ Monitoring electrodes] Respiratory 20 Rate Blood Pressure Blood Pressure [Left Brachial artery] O2 Saturation Oxygen O2 Source Nasal cannula Oxygen Flow Rate 4 I&O (Last 24 Hrs): Intake and Output Totals x24h 03/14/20 03/15/20 03/16/20 23:59 23:59 23:59 Intake Total 2024 2660.000 Balance 2024 2660.000 General: Alert, Oriented x3, No acute distress HEENT: PERRLA, EOMI Neck: Supple, No JVD Neuro: Alert, Non Focal, Oriented Times 3 Cardiovascular: Other (Irregularly irregular heart rhythm. Tachycardic) Respiratory: Chest non-tender, No respiratory distress, Wheezes (Bilateral inspiratory/expiratory wheezing which is chronic due to her COPD) Abdomen: Normal bowel sounds, Soft Extremities: No clubbing, No cyanosis, No edema - Results Results: Laboratory Results WBC 5.1 x10^3/uL (4.8-10.8) 03/16/20 09:34 RBC 4.35 10^6/uL (4.20-5.40) 03/16/20 09:34 Hgb 13.5 g/dL (12.0-16.0) 03/16/20 09:34 Hct 43.3 % (37.0-47.0) 03/16/20 09:34 MCV 99.5 fL (81.0-99.0) H 03/16/20 09:34 MCH 31.0 pg (27.0-31.0) 03/16/20 09:34 MCHC 31.2 g/dL (32.0-36.0) L 03/16/20 09:34 RDW 13.7 % (12.0-15.0) 03/16/20 09:34 Plt Count 205 10^3/uL (130-450) 03/16/20 09:34 MPV 10.1 fL (7.9-10.8) 03/16/20 09:34 Neut # (Auto) 4.6 10^3/uL (1.5-6.6) 03/16/20 09:34 Lymph # (Auto) 0.4 10^3/uL (1.5-3.5) L 03/16/20 09:34 [place] # (Auto) 0.1 10^3/uL (0.0-1.0) 03/16/20 09:34 Eos # (Auto) 0.0 10^3/uL (0.0-0.7) 03/16/20 09:34 Baso # (Auto) 0.0 10^3/uL (0.0-0.1) 03/16/20 09:34 Absolute Nucleated RBC 0.00 x10^3/uL 03/16/20 09:34 Nucleated RBC % 0.0 /100WBC 03/16/20 09:34 PT 16.6 secs (9.9-12.6) H 03/15/20 13:00 INR 1.5 (0.8-1.2) H 03/15/20 13:00 Sodium 132 mmol/L (135-145) L 03/16/20 09:34 Potassium 4.4 mmol/L (3.5-5.0) 03/16/20 09:34 Chloride 91 mmol/L (101-111) L 03/16/20 09:34 Carbon Dioxide 31 mmol/L (21-32) 03/16/20 09:34 Anion Gap 10.0 (6-13) 03/16/20 09:34 BUN 16 mg/dL (6-20) 03/16/20 09:34 Creatinine 0.7 mg/dL (0.4-1.0) 03/16/20 09:34 Estimated GFR (MDRD) 84 (>89) L 03/16/20 09:34 Glucose 223 mg/dL (70-100) H 03/16/20 09:34 Calcium 8.5 mg/dL (8.5-10.3) 03/16/20 09:34 Phosphorus 2.6 mg/dL (2.5-4.6) 03/16/20 09:34 Magnesium 1.5 mg/dL (1.7-2.8) L 03/16/20 09:34 Total Bilirubin 1.7 mg/dL (0.2-1.0) H 03/15/20 13:00 AST 16 IU/L (10-42) 03/15/20 13:00 ALT < 10 IU/L (10-60) L 03/15/20 13:00 Alkaline Phosphatase 69 IU/L (42-121) 03/15/20 13:00 Troponin I High Sens 5.6 ng/L (2.3-14.8) 03/16/20 09:34 B-Natriuretic Peptide 363 pg/mL (5-100) H 03/15/20 13:00 Total Protein 6.7 g/dL (6.7-8.2) 03/15/20 13:00 Albumin 4.1 g/dL (3.2-5.5) 03/15/20 13:00 Globulin 2.6 g/dL (2.1-4.2) 03/15/20 13:00 Albumin/Globulin Ratio 1.6 (1.0-2.2) 03/15/20 13:00 Lipase 19 U/L (22-51) L 03/15/20 13:00 - Procedures Procedures: Procedures ASSIST W CARDIAC OUTPUT W PULS COMPRESSION, CONTINUOUS (07/13/15) ASSISTANCE WITH RESPIRATORY VENTILATION, 24-96 HRS, CPAP (07/13/15) DRAINAGE OF R PLEURAL CAV WITH DRAIN DEV, PERC APPROACH (07/13/15) EXCISION OF LIVER, OPEN APPROACH, DIAGNOSTIC (10/03/17) INSERTION OF ENDOTRACHEAL AIRWAY INTO TRACHEA, VIA OPENING (07/13/15) INSERTION OF INFUSION DEV INTO SUP VENA CAVA, PERC APPROACH (07/13/15) INSPECTION OF UPPER INTESTINAL TRACT, ENDO (01/21/18) INTRODUCTION OF NUTRITIONAL INTO CENTRAL VEIN, PERC APPROACH (07/13/15) MONITORING OF VENOUS PRESSURE, CENTRAL, PERC APPROACH (07/13/15) REPAIR LEFT INGUINAL REGION, OPEN APPROACH (10/03/17) RESECTION OF APPENDIX, OPEN APPROACH (07/13/15) RESECTION OF BILATERAL FALLOPIAN TUBES, OPEN APPROACH (10/03/17) RESECTION OF BILATERAL OVARIES, OPEN APPROACH (10/03/17) RESECTION OF UTERUS, OPEN APPROACH (10/03/17) RESPIRATORY VENTILATION, 24-96 CONSECUTIVE HOURS (07/13/15) TRANSFUSE NONAUT RED BLOOD CELLS IN PERIPH VEIN, PERC (01/21/18) ABX Reporting Has patient been on IV antibiotics over the past 48 hours?: No
[2020-03-16] MEDS: METOPROLOL 5 MG/5 ML VIAL IVP PRN (22:41)
[2020-03-17] MEDS: SODIUM CHLORIDE FLUSH 0.9% 10 ML SYRINGE IVP SCH ×3 (00:52→17:29)
[2020-03-17] MEDS: D5NS W/20 MEQ KCL 1,000 ML IV SCH (02:06)
[2020-03-17] MEDS: LORazepam 1 MG TABLET PO PRN ×3 (03:30→20:51)
[2020-03-17 05:32] LABS: HGB - HEMOGLOBIN 13.7 g/dL (12.0-16.0); LYMPHOCYTES # (AUTO) 0.3 10^3/uL (1.5-3.5); LYMPHOCYTES % (AUTO) 5.4 %; MEAN CORPUSCULAR HGB CONC 31.5 g/dL (32.0-36.0); MEAN CORPUSCULAR VOLUME 101.6 fL (81.0-99.0); MEAN PLATELET VOLUME 10.4 fL (7.9-10.8); MONOCYTES # (AUTO) 0.2 10^3/uL (0.0-1.0); MONOCYTES % (AUTO) 2.7 %; NEUTROPHILS # (AUTO) 5.8 10^3/uL (1.5-6.6); NEUTROPHILS % (AUTO) 91.6 %; PLT - PLATELET COUNT 217 10^3/uL (130-450); RED BLOOD COUNT 4.28 10^6/uL (4.20-5.40); RED CELL DISTRIBUTION WIDTH 14.2 % (12.0-15.0); WHITE BLOOD COUNT 6.3 x10^3/uL (4.8-10.8)
[2020-03-17] MEDS: BENZONATATE 100 MG CAPSULE PO PRN ×2 (05:32→18:14)
[2020-03-17 05:46] LABS: CALCIUM 8.8 mg/dL (8.5-10.3); CREATININE 0.6 mg/dL (0.4-1.0); MAGNESIUM 2.3 mg/dL (1.7-2.8); PHOSPHORUS 2.9 mg/dL (2.5-4.6)
[2020-03-17] MEDS: LEVALBUTEROL 1.25 MG/3 ML NEB INH PRN ×5 (07:43→23:33)
[2020-03-17] MEDS: BUDESONIDE 0.5 MG/2 ML NEB INH SCH ×2 (07:43→19:17)
[2020-03-17] MEDS: IPRATROPIUM 0.2 MG/ML NEB INH SCH ×4 (07:43→19:17)
[2020-03-17] MEDS: cefTRIAXone 2 GM in SODIUM CHLORIDE 0.9% MINIBAG 100 ML IV SCH (09:52)
[2020-03-17] MEDS: AZITHROMYCIN 250 MG TABLET PO SCH (10:02)
[2020-03-17] MEDS: diltiaZEM CD 240 MG CAPSULE PO SCH (10:03)
[2020-03-17] MEDS: DABIGATRAN 75 MG CAPSULE PO SCH ×2 (10:08→20:50)
[2020-03-17] MEDS: guaiFENesin 600 MG TABLET PO SCH ×2 (10:10→20:51)
[2020-03-17] MEDS: FAMOTIDINE 20 MG TABLET PO SCH ×2 (10:10→20:51)
[2020-03-17] MEDS: METOPROLOL SUCCINATE 50 MG TABLET PO SCH (10:16)
[2020-03-17] MEDS: NICOTINE 14 MG PATCH TOP SCH ×2 (10:18→10:38)
[2020-03-17] MEDS: predniSONE 20 MG TABLET PO SCH (10:25)
[2020-03-17] MEDS: CALCIUM CARBONATE CHEW 500 MG TABLET PO PRN (10:31)
[2020-03-17] MEDS: METOPROLOL 5 MG/5 ML VIAL IVP PRN (11:36)
[2020-03-17] MEDS: BENZOCAINE/MENTHOL LOZENGE MM PRN ×2 (13:19→18:14)
[2020-03-17 14:24] LABS: CALCIUM 8.9 mg/dL (8.5-10.3); CREATININE 0.8 mg/dL (0.4-1.0)
--- NOTE | 2020-03-17 20:06 | PROVIDER PROGRESS NOTE ---
Subjective - Prog Note Date Prog Note Date: 03/17/20 Prog Note Time: 20:03 - Subjective Pt reports feeling: No change Subjective: while she is here for afib and RVR/ COPD , her main complaint is that of reflux. she states that she's been worked up in the outpt setting and nothing found. substernal dyspepsia. belching. better w TUMS but can't do chewable since teeth not there. She declines maalox when offered. sob about the same. she was taken off IV steroids and had rebound increase sob so today back on oral prednisone. about the same. Current Medications - Current Medications Current Medications: Active Medications Acetaminophen (Tylenol) 650 mg PO Q4HR PRN PRN Reason: Pain or Fever > 38C (100.4F) Last Admin: 03/15/20 17:53 Dose: 650 mg Documented by: Azithromycin (Zithromax) 500 mg PO DAILY [facility] Stop: 03/18/20 00:00 Last Admin: 03/17/20 10:02 Dose: 500 mg Documented by: Benzonatate (Tessalon) 100 mg PO TID PRN PRN Reason: Cough Last Admin: 03/17/20 18:14 Dose: 100 mg Documented by: Budesonide (Pulmicort) 0.5 mg INH RTBID [facility] Last Admin: 03/17/20 19:17 Dose: 0.5 mg Documented by: Calcium Carbonate/Glycine (Tums) 500 mg PO TID PRN PRN Reason: Heartburn Last Admin: 03/17/20 10:31 Dose: 500 mg Documented by: Dabigatran (Pradaxa) 150 mg PO BID [facility] Last Admin: 03/17/20 10:08 Dose: 150 mg Documented by: Diltiazem HCl (Cardizem Cd) 240 mg PO DAILY [facility] Last Admin: 03/17/20 10:03 Dose: 240 mg Documented by: Famotidine (Pepcid) 20 mg PO BID [facility] Last Admin: 03/17/20 10:10 Dose: 20 mg Documented by: Guaifenesin (Mucinex) 600 mg PO BID [facility] Last Admin: 03/17/20 10:10 Dose: 600 mg Documented by: Ceftriaxone Sodium 2 gm/ (Sodium Chloride) 100 mls @ 200 mls/hr IV DAILY [facility] Last Infusion: 03/17/20 10:22 Dose: Infused Documented by: Ipratropium [place] (Atrovent) 0.5 mg INH RTQID [facility] Last Admin: 03/17/20 19:17 Dose: 0.5 mg Documented by: Levalbuterol HCl (Xopenex) 1.25 mg INH RTQ4H PRN PRN Reason: Shortness of Air/Wheezing Stop: 03/21/20 17:22 Last Admin: 03/17/20 19:17 Dose: 1.25 mg Documented by: Lorazepam (Ativan) 1 mg PO TID PRN PRN Reason: NEEDED PER PROVIDER ORDERS Last Admin: 03/17/20 11:32 Dose: 1 mg Documented by: Metoprolol Succinate (Toprol Xl) 75 mg PO DAILY [facility] Metoprolol Tartrate (Lopressor Inj) 5 mg IVP Q6H PRN PRN Reason: HR >120 Last Admin: 03/17/20 11:36 Dose: 5 mg Documented by: Montelukast Sodium (Singulair) 10 mg PO QPM [facility] Last Admin: 03/16/20 20:39 Dose: 10 mg Documented by: Nicotine (Nicoderm) 1 patch TOP DAILY [facility] Last Admin: 03/17/20 10:38 Dose: Not Given Documented by: Ondansetron HCl (Zofran Inj) 4 mg IVP Q6HR PRN PRN Reason: Nausea / Vomiting Prednisone (Deltasone) 40 mg PO DAILYWM [facility] Last Admin: 03/17/20 10:25 Dose: 40 mg Documented by: Sodium Chloride (Normal Saline Flush 0.9%) 10 ml IVP PRN PRN PRN Reason: NEEDED PER PROVIDER ORDERS Last Admin: 03/16/20 14:31 Dose: 10 ml Documented by: Sodium Chloride (Normal Saline Flush 0.9%) 10 ml IVP 0100,0900,1700 [facility] Last Admin: 03/17/20 17:29 Dose: 10 ml Documented by: Throat Lozenges (Cepacol) 1 lozenge MM Q2HR PRN PRN Reason: Throat pain Last Admin: 03/17/20 18:14 Dose: 1 lozenge Documented by: Zolpidem Tartrate (Ambien) 5 mg PO QPM PRN PRN Reason: Insomnia Ipratropium/Albuterol [Combivent Respimat] 1 puffs INH BID 03/18/17 Albuterol 2.5 mg INH Q4H PRN 04/18/17 LORazepam [Lorazepam] 1 mg PO TID PRN 06/18/19 Dabigatran Etexilate Mesylate [Pradaxa] 150 mg PO BID 03/15/20 Fluticasone Propion/Salmeterol [Wixela 250-50 Inhub] 1 inh PO DAILY 03/15/20 Metoprolol Succinate 50 mg PO DAILY 03/15/20 diltiaZEM CD [Cardizem Cd] 240 mg PO DAILY 03/15/20 Objective - Vital Signs/Intake & Output Reviewed Vital Signs: Yes Vital Signs: Vital Signs x48h Temp Pulse Pulse Resp BP BP Pulse Ox 03/17/20 19:20 109 H 20 03/17/20 16:06 36.7 C 108 H 24 108/87 H 94 03/17/20 15:31 114 H 22 03/17/20 13:00 37.0 C 113 H 18 112/89 H 94 03/17/20 12:06 108/87 H Intake & Output: Intake & Output 03/14/20 03/15/20 03/16/20 03/17/20 23:59 23:59 23:59 23:59 Intake Total 2024 2710.000 2029 Balance 2024 2710.000 2029 - Objective General Appearance: positive: No acute distress, Alert, Other (thin white female, watching [employer] on TV and commenting on shows. comfortable. but if sits up easily collier) Eyes Bilateral: positive: PERRL, EOMI ENT: positive: Pharynx nml Neck: positive: No JVD. negative: Lymphadenopathy (R), Lymphadenopathy (L) Respiratory: positive: Chest non-tender, No respiratory distress, Wheezes (bilateral, diffuse, no use of accessory muscles, laying at 45 degrees, comfortable). negative: Rales, Rhonchi Cardiovascular: positive: Irregularly irregular, Tachycardia (rate 109-114). negative: Gallop/S4, Friction rub Abdomen: positive: Non-tender, No organomegaly, Nml bowel sounds, No distention Skin: positive: Color nml, Dry (and scaling of legs.), Other (cool to touch calves and feet). negative: Pallor, Skin rash Extremities: positive: Non-tender, No pedal edema Neurologic/Psychiatric: positive: Oriented x3, CN's nml (2-12), Motor nml - Lab Results Fish Bones: 03/17/20 05:08 03/17/20 14:08 Other Labs: Lab Results x24hrs 03/17/20 03/17/20 03/17/20 Range/Units 14:08 05:08 05:08 WBC 6.3 (4.8-10.8) x10^3/uL RBC 4.28 (4.20-5.40) 10^6/uL Hgb 13.7 (12.0-16.0) g/dL Hct 43.5 (37.0-47.0) % MCV 101.6 H (81.0-99.0) fL MCH 32.0 H (27.0-31.0) pg MCHC 31.5 L (32.0-36.0) g/dL RDW 14.2 (12.0-15.0) % Plt Count 217 (130-450) 10^3/uL MPV 10.4 (7.9-10.8) fL Neut # (Auto) 5.8 (1.5-6.6) 10^3/uL Lymph # (Auto) 0.3 L (1.5-3.5) 10^3/uL [place] # (Auto) 0.2 (0.0-1.0) 10^3/uL Eos # (Auto) 0.0 (0.0-0.7) 10^3/uL Baso # (Auto) 0.0 (0.0-0.1) 10^3/uL Absolute Nucleated RBC 0.00 x10^3/uL Nucleated RBC % 0.0 /100WBC Sodium 135 135 (135-145) mmol/L Potassium 5.1 H 5.6 H (3.5-5.0) mmol/L Chloride 97 L 100 L (101-111) mmol/L Carbon Dioxide 27 29 (21-32) mmol/L Anion Gap 11.0 6.0 (6-13) BUN 17 15 (6-20) mg/dL Creatinine 0.8 0.6 (0.4-1.0) mg/dL Estimated GFR (MDRD) 72 L 100 (>89) Glucose 109 H 157 H (70-100) mg/dL Calcium 8.9 8.8 (8.5-10.3) mg/dL Phosphorus 2.9 (2.5-4.6) mg/dL Magnesium 2.3 (1.7-2.8) mg/dL ABX Reporting Has patient been on IV antibiotics over the past 48 hours?: Yes Assessment/Plan - Problem List (1) Atrial fibrillation with RVR Impression: On diltiazem 240 mg p.o. daily. Patient's heart rate fluctuates between 110-130's Metoprolol 5 mg IV every 4 hours ordered for heart rate greater than 120. Toprol XL increased from 50 mg daily to 75mg daily today. Continue her Pradaxa 150 mg p.o. twice daily Patient's Solu-Medrol had been discontinued 03/16 and today she was resumed on oral steroids w prednisone bc wheezing a bit worse (2) COPD exacerbation Assessment/Plan: Patient is breathing better overall than admit and at home but sl worse today. No new cough, no phlegm She is still currently on 2 L of oxygen via nasal cannula. She normally uses 1 L of oxygen at home at rest and 2 L with activity. She is not on the trilogy due to cost Solu-Medrol has been discontinued 03/16 due to the likelihood it is contributing to her atrial fibrillation with rapid ventricular rhythm but steroids resumed w oral pred today. She is on budesonide twice daily. Xopenex every 4 hours Continue her azithromycin and Rocephin (3) Substernal burning on pepcid bid and tums. when she gets the tums, burning is relieved. She declines maalox. (4) Hyperkalemia was 5.6 yesterday and 5.1 today. Not on FORTINO of spironolactone. ?hemolysis. Is on steroids now. No rhabdo. if high again tomorrow, give one dose of kayexalte.
[2020-03-17] MEDS: MONTELUKAST 10 MG TABLET PO SCH (20:51)
[2020-03-18] MEDS: SODIUM CHLORIDE FLUSH 0.9% 10 ML SYRINGE IVP SCH ×3 (00:12→17:09)
[2020-03-18] MEDS: BENZOCAINE/MENTHOL LOZENGE MM PRN ×3 (00:12→13:01)
[2020-03-18] MEDS: BENZONATATE 100 MG CAPSULE PO PRN ×3 (04:45→17:09)
[2020-03-18] MEDS: ACETAMINOPHEN 325 MG TABLET PO PRN ×2 (04:46→21:08)
[2020-03-18 05:32] LABS: BASOPHILS % (AUTO) 0.2 %; EOSINOPHILS % (AUTO) 0.1 %; HGB - HEMOGLOBIN 13.8 g/dL (12.0-16.0); LYMPHOCYTES # (AUTO) 1.3 10^3/uL (1.5-3.5); LYMPHOCYTES % (AUTO) 13.2 %; MEAN CORPUSCULAR HEMOGLOBIN 30.6 pg (27.0-31.0); MEAN CORPUSCULAR HGB CONC 29.2 g/dL (32.0-36.0); MEAN CORPUSCULAR VOLUME 104.7 fL (81.0-99.0); MEAN PLATELET VOLUME 10.3 fL (7.9-10.8); MONOCYTES # (AUTO) 0.8 10^3/uL (0.0-1.0); MONOCYTES % (AUTO) 8.9 %; NEUTROPHILS # (AUTO) 7.3 10^3/uL (1.5-6.6); NEUTROPHILS % (AUTO) 77.2 %; PLT - PLATELET COUNT 221 10^3/uL (130-450); RED BLOOD COUNT 4.51 10^6/uL (4.20-5.40); RED CELL DISTRIBUTION WIDTH 14.3 % (12.0-15.0); WHITE BLOOD COUNT 9.5 x10^3/uL (4.8-10.8)
[2020-03-18 05:44] LABS: MAGNESIUM 2.5 mg/dL (1.7-2.8); PHOSPHORUS 2.8 mg/dL (2.5-4.6)
[2020-03-18 05:58] LABS: CREATININE 0.7 mg/dL (0.4-1.0)
[2020-03-18] MEDS: IPRATROPIUM 0.2 MG/ML NEB INH SCH ×4 (07:04→19:34)
[2020-03-18] MEDS: BUDESONIDE 0.5 MG/2 ML NEB INH SCH ×2 (07:05→19:34)
[2020-03-18] MEDS: LEVALBUTEROL 1.25 MG/3 ML NEB INH PRN ×4 (07:05→19:34)
[2020-03-18] MEDS ORDERED: GI COCKTAIL 120 ML BOTTLE PO PRN (07:50)
[2020-03-18] MEDS ORDERED: SODIUM POLYSTYRENE SULFONATE 15 GM/60 ML BOTTLE PO ONE (08:00)
[2020-03-18] MEDS: diltiaZEM CD 180 MG CAPSULE PO SCH (08:34)
[2020-03-18] MEDS: predniSONE 20 MG TABLET PO SCH (08:34)
[2020-03-18] MEDS: DABIGATRAN 75 MG CAPSULE PO SCH ×2 (08:35→21:08)
[2020-03-18] MEDS: guaiFENesin 600 MG TABLET PO SCH ×2 (08:35→21:08)
[2020-03-18] MEDS: FAMOTIDINE 20 MG TABLET PO SCH ×2 (08:35→21:07)
[2020-03-18] MEDS: cefTRIAXone 2 GM in SODIUM CHLORIDE 0.9% MINIBAG 100 ML IV SCH (08:36)
[2020-03-18] MEDS: NICOTINE 14 MG PATCH TOP SCH (08:42)
[2020-03-18] MEDS ORDERED: METOPROLOL SUCCINATE 25 MG TABLET PO SCH (09:00)
[2020-03-18] MEDS: METOPROLOL 5 MG/5 ML VIAL IVP PRN (10:29)
[2020-03-18] MEDS: CALCIUM CARBONATE CHEW 500 MG TABLET PO PRN (15:52)
[2020-03-18] MEDS: LORazepam 1 MG TABLET PO PRN (15:52)
[2020-03-18] MEDS ORDERED: methylPREDNISolone SUCCINATE 40 MG/ML VIAL IVP SCH (16:00)
--- NOTE | 2020-03-18 16:02 | PROVIDER PROGRESS NOTE ---
Assessment/Plan - Problem List (1) Atrial fibrillation with RVR Assessment/Plan: she has pulse at 88 now. We will continue diltiazem 360 p.o. daily, continue metoprolol 75 mg daily continue Pradaxa 150 p.o. twice daily (2) COPD exacerbation Patient Still present significantly shortness of breathing and still has wheezing, RT report patient sats dropped quickly when she back from bathroom. We will switch Prednisone 40 mg to Solu-Medrol 40 tid daily now. Continue RT breath treatment, continue azithromycin and Rocephin, Continue supplemental oxygen (3) Substernal burning Patient still continues to complain substernal burning, add GI cocktail, cont inue Tums as needed (4) Hyperkalemia potassium is 5.4, give one dose of kayexalte. Continue [facility] - Current Meds Current Meds: Current Medications Generic Name Dose Route Start Last Admin Trade Name Freq PRN Reason Stop Dose Admin Acetaminophen 650 mg 03/15/20 16:53 03/18/20 04:46 Tylenol PO 650 mg Q4HR PRN Administration Pain or Fever > 38C (100.4F) Benzonatate 100 mg 03/16/20 03:15 03/18/20 08:35 Tessalon PO 100 mg TID PRN Administration Cough Budesonide 0.5 mg 03/15/20 19:00 03/18/20 07:05 Pulmicort INH 0.5 mg RTBID MATTHEW Administration Calcium Carbonate/Glycine 500 mg 03/16/20 01:25 03/18/20 15:52 Tums PO 500 mg TID PRN Administration Heartburn Dabigatran 150 mg 03/15/20 21:00 03/18/20 08:35 Pradaxa PO 150 mg BID MATTHEW Administration Diltiazem HCl 360 mg 03/18/20 09:00 03/18/20 08:34 Cardizem Cd PO 360 mg DAILY MATTHEW Administration Famotidine 20 mg 03/15/20 21:00 03/18/20 08:35 Pepcid PO 20 mg BID MATTHEW Administration Guaifenesin 600 mg 03/15/20 21:00 03/18/20 08:35 Mucinex PO 600 mg BID MATTHEW Administration Ceftriaxone Sodium 2 gm/ 100 mls @ 200 mls/hr 03/16/20 09:00 03/18/20 09:06 Sodium Chloride IV Infused DAILY MATTHEW Infusion Ipratropium [place] 0.5 mg 03/15/20 21:00 03/18/20 15:06 Atrovent INH 0.5 mg RTQID MATTHEW Administration Levalbuterol HCl 1.25 mg 03/18/20 11:33 03/18/20 15:06 Xopenex INH 03/21/20 17:22 1.25 mg Q2H PRN Administration Shortness of Air/Wheezing Lorazepam 1 mg 03/15/20 17:48 03/18/20 15:52 Ativan PO 1 mg TID PRN Administration NEEDED PER PROVIDER ORDERS Metoprolol Succinate 75 mg 03/18/20 09:00 03/18/20 08:35 Toprol Xl PO 75 mg DAILY MATTHEW Administration Metoprolol Tartrate 5 mg 03/18/20 07:47 03/18/20 10:29 Lopressor Inj IVP 5 mg Q6H PRN Administration HR>110 Montelukast Sodium 10 mg 03/15/20 21:00 03/17/20 20:51 Singulair PO 10 mg QPM MATTHEW Administration Sodium Chloride 10 ml 03/15/20 16:53 03/16/20 14:31 Normal Saline Flush 0.9% IVP 10 ml PRN PRN Administration NEEDED PER PROVIDER ORDERS Sodium Chloride 10 ml 03/15/20 17:00 03/18/20 09:08 Normal Saline Flush 0.9% IVP 10 ml 0100,0900,1700 MATTHEW Administration Throat Lozenges 1 lozenge 03/16/20 03:57 03/18/20 13:01 Cepacol MM 1 lozenge Q2HR PRN Administration Throat pain - Lab Result Fish Bone Diagrams: 03/18/20 05:10 03/18/20 05:10 - Additional Planning My Orders: My Active Orders 03/18/20 07:47 Metoprolol Inj [Lopressor Inj] 5 mg IVP Q6H PRN 03/18/20 09:00 diltiaZEM CD [Cardizem Cd] 360 mg PO DAILY 03/18/20 11:33 Levalbuterol [Xopenex] 1.25 mg INH Q2H PRN 03/18/20 15:45 Gi Cocktail 30 ml PO Q3H PRN 03/18/20 16:00 methylPREDNISolone SUCCINATE [SOLU-Medrol (40MG VIAL)] 60 mg IVP TID Subjective - Subjective Patient Reports: Feeling Better Objective Vital Signs: Vital Signs - 24 hr 03/17/20 03/17/20 03/17/20 16:06 19:20 21:00 Temperature 36.7 C 36.7 C Heart Rate 109 H Heart Rate [ Brachial] Heart Rate [ 108 H 116 H Monitoring electrodes] Respiratory 24 20 24 Rate Blood Pressure 108/87 H 121/90 H [Left Brachial artery] O2 Saturation 94 94 03/17/20 03/17/20 03/18/20 23:29 23:35 04:53 Temperature 36.9 C 36.4 C L Heart Rate 108 H Heart Rate [ 112 H Brachial] Heart Rate [ 92 Monitoring electrodes] Respiratory 20 20 22 Rate Blood Pressure 112/88 H 136/87 H [Left Brachial artery] O2 Saturation 93 92 03/18/20 03/18/20 03/18/20 07:05 09:41 10:21 Temperature 36.6 C Heart Rate 130 H 130 H Heart Rate [ Brachial] Heart Rate [ 133 H Monitoring electrodes] Respiratory 26 H 20 26 H Rate Blood Pressure 114/80 [Left Brachial artery] O2 Saturation 94 03/18/20 03/18/20 03/18/20 10:27 12:50 15:06 Temperature 36.2 C L Heart Rate 125 H Heart Rate [ 118 H Brachial] Heart Rate [ 130 H Monitoring electrodes] Respiratory 24 30 H Rate Blood Pressure 103/80 [Left Brachial artery] O2 Saturation 92 03/18/20 15:50 Temperature 36.7 C Heart Rate Heart Rate [ Brachial] Heart Rate [ 88 Monitoring electrodes] Respiratory 24 Rate Blood Pressure 129/93 H [Left Brachial artery] O2 Saturation 98 Oxygen O2 Source Nasal cannula Oxygen Flow Rate 4 I&O (Last 24 Hrs): Intake and Output Totals x24h 03/16/20 03/17/20 03/18/20 23:59 23:59 23:59 Intake Total 2710.000 2380 100 Balance 2710.000 2380 100 General: Alert, Oriented x3, Mild distress HEENT: Atraumatic Neck: Supple Lymphatic: no adenopathy Neuro: Alert, Non Focal, Oriented Times 3 Cardiovascular: Normal S1, Normal S2 Respiratory: Chest non-tender Abdomen: Normal bowel sounds, Soft, No tenderness Extremities: Normal pulses - Results Results: Laboratory Results WBC 9.5 x10^3/uL (4.8-10.8) 03/18/20 05:10 RBC 4.51 10^6/uL (4.20-5.40) 03/18/20 05:10 Hgb 13.8 g/dL (12.0-16.0) 03/18/20 05:10 Hct 47.2 % (37.0-47.0) H 03/18/20 05:10 MCV 104.7 fL (81.0-99.0) H 03/18/20 05:10 MCH 30.6 pg (27.0-31.0) 03/18/20 05:10 MCHC 29.2 g/dL (32.0-36.0) L 03/18/20 05:10 RDW 14.3 % (12.0-15.0) 03/18/20 05:10 Plt Count 221 10^3/uL (130-450) 03/18/20 05:10 MPV 10.3 fL (7.9-10.8) 03/18/20 05:10 Neut # (Auto) 7.3 10^3/uL (1.5-6.6) H 03/18/20 05:10 Lymph # (Auto) 1.3 10^3/uL (1.5-3.5) L 03/18/20 05:10 [place] # (Auto) 0.8 10^3/uL (0.0-1.0) 03/18/20 05:10 Eos # (Auto) 0.0 10^3/uL (0.0-0.7) 03/18/20 05:10 Baso # (Auto) 0.0 10^3/uL (0.0-0.1) 03/18/20 05:10 Absolute Nucleated RBC 0.00 x10^3/uL 03/18/20 05:10 Nucleated RBC % 0.0 /100WBC 03/18/20 05:10 PT 16.6 secs (9.9-12.6) H 03/15/20 13:00 INR 1.5 (0.8-1.2) H 03/15/20 13:00 Sodium 133 mmol/L (135-145) L 03/18/20 05:10 Potassium 5.4 mmol/L (3.5-5.0) H 03/18/20 05:10 Chloride 98 mmol/L (101-111) L 03/18/20 05:10 Carbon Dioxide 29 mmol/L (21-32) 03/18/20 05:10 Anion Gap 6.0 (6-13) 03/18/20 05:10 BUN 19 mg/dL (6-20) 03/18/20 05:10 Creatinine 0.7 mg/dL (0.4-1.0) 03/18/20 05:10 Estimated GFR (MDRD) 84 (>89) L 03/18/20 05:10 Glucose 107 mg/dL (70-100) H 03/18/20 05:10 Calcium 9.0 mg/dL (8.5-10.3) 03/18/20 05:10 Phosphorus 2.8 mg/dL (2.5-4.6) 03/18/20 05:10 Magnesium 2.5 mg/dL (1.7-2.8) 03/18/20 05:10 Total Bilirubin 1.7 mg/dL (0.2-1.0) H 03/15/20 13:00 AST 16 IU/L (10-42) 03/15/20 13:00 ALT < 10 IU/L (10-60) L 03/15/20 13:00 Alkaline Phosphatase 69 IU/L (42-121) 03/15/20 13:00 Troponin I High Sens 5.6 ng/L (2.3-14.8) 03/16/20 09:34 B-Natriuretic Peptide 363 pg/mL (5-100) H 03/15/20 13:00 Total Protein 6.7 g/dL (6.7-8.2) 03/15/20 13:00 Albumin 4.1 g/dL (3.2-5.5) 03/15/20 13:00 Globulin 2.6 g/dL (2.1-4.2) 03/15/20 13:00 Albumin/Globulin Ratio 1.6 (1.0-2.2) 03/15/20 13:00 Lipase 19 U/L (22-51) L 03/15/20 13:00 - Procedures Procedures: Procedures ASSIST W CARDIAC OUTPUT W PULS COMPRESSION, CONTINUOUS (07/13/15) ASSISTANCE WITH RESPIRATORY VENTILATION, 24-96 HRS, CPAP (07/13/15) DRAINAGE OF R PLEURAL CAV WITH DRAIN DEV, PERC APPROACH (07/13/15) EXCISION OF LIVER, OPEN APPROACH, DIAGNOSTIC (10/03/17) INSERTION OF ENDOTRACHEAL AIRWAY INTO TRACHEA, VIA OPENING (07/13/15) INSERTION OF INFUSION DEV INTO SUP VENA CAVA, PERC APPROACH (07/13/15) INSPECTION OF UPPER INTESTINAL TRACT, ENDO (01/21/18) INTRODUCTION OF NUTRITIONAL INTO CENTRAL VEIN, PERC APPROACH (07/13/15) MONITORING OF VENOUS PRESSURE, CENTRAL, PERC APPROACH (07/13/15) REPAIR LEFT INGUINAL REGION, OPEN APPROACH (10/03/17) RESECTION OF APPENDIX, OPEN APPROACH (07/13/15) RESECTION OF BILATERAL FALLOPIAN TUBES, OPEN APPROACH (10/03/17) RESECTION OF BILATERAL OVARIES, OPEN APPROACH (10/03/17) RESECTION OF UTERUS, OPEN APPROACH (10/03/17) RESPIRATORY VENTILATION, 24-96 CONSECUTIVE HOURS (07/13/15) TRANSFUSE NONAUT RED BLOOD CELLS IN PERIPH VEIN, PERC (01/21/18) ABX Reporting Has patient been on IV antibiotics over the past 48 hours?: Yes Current Medications - Current Medications Current Medications: Active Medications Acetaminophen (Tylenol) 650 mg PO Q4HR PRN PRN Reason: Pain or Fever > 38C (100.4F) Last Admin: 03/18/20 04:46 Dose: 650 mg Documented by: Benzonatate (Tessalon) 100 mg PO TID PRN PRN Reason: Cough Last Admin: 03/18/20 08:35 Dose: 100 mg Documented by: Budesonide (Pulmicort) 0.5 mg INH RTBID [facility] Last Admin: 03/18/20 07:05 Dose: 0.5 mg Documented by: Calcium Carbonate/Glycine (Tums) 500 mg PO TID PRN PRN Reason: Heartburn Last Admin: 03/18/20 15:52 Dose: 500 mg Documented by: Dabigatran (Pradaxa) 150 mg PO BID [facility] Last Admin: 03/18/20 08:35 Dose: 150 mg Documented by: Diltiazem HCl (Cardizem Cd) 360 mg PO DAILY [facility] Last Admin: 03/18/20 08:34 Dose: 360 mg Documented by: Famotidine (Pepcid) 20 mg PO BID [facility] Last Admin: 03/18/20 08:35 Dose: 20 mg Documented by: Guaifenesin (Mucinex) 600 mg PO BID [facility] Last Admin: 03/18/20 08:35 Dose: 600 mg Documented by: Ceftriaxone Sodium 2 gm/ (Sodium Chloride) 100 mls @ 200 mls/hr IV DAILY [facility] Last Infusion: 03/18/20 09:06 Dose: Infused Documented by: Ipratropium [place] (Atrovent) 0.5 mg INH RTQID [facility] Last Admin: 03/18/20 15:06 Dose: 0.5 mg Documented by: Levalbuterol HCl (Xopenex) 1.25 mg INH Q2H PRN PRN Reason: Shortness of Air/Wheezing Stop: 03/21/20 17:22 Last Admin: 03/18/20 15:06 Dose: 1.25 mg Documented by: Lorazepam (Ativan) 1 mg PO TID PRN PRN Reason: NEEDED PER PROVIDER ORDERS Last Admin: 03/18/20 15:52 Dose: 1 mg Documented by: Methylprednisolone (Solu-Medrol (40mg Vial)) 40 mg IVP TID [facility] Metoprolol Succinate (Toprol Xl) 75 mg PO DAILY [facility] Last Admin: 03/18/20 08:35 Dose: 75 mg Documented by: Metoprolol Tartrate (Lopressor Inj) 5 mg IVP Q6H PRN PRN Reason: HR>110 Last Admin: 03/18/20 10:29 Dose: 5 mg Documented by: Montelukast Sodium (Singulair) 10 mg PO QPM [facility] Last Admin: 03/17/20 20:51 Dose: 10 mg Documented by: Multi-Ingredient Mouthwash/Gargle () 30 ml PO Q3H PRN PRN Reason: Abdominal Pain Ondansetron HCl (Zofran Inj) 4 mg IVP Q6HR PRN PRN Reason: Nausea / Vomiting Sodium Chloride (Normal Saline Flush 0.9%) 10 ml IVP PRN PRN PRN Reason: NEEDED PER PROVIDER ORDERS Last Admin: 03/16/20 14:31 Dose: 10 ml Documented by: Sodium Chloride (Normal Saline Flush 0.9%) 10 ml IVP 0100,0900,1700 [facility] Last Admin: 03/18/20 09:08 Dose: 10 ml Documented by: Throat Lozenges (Cepacol) 1 lozenge MM Q2HR PRN PRN Reason: Throat pain Last Admin: 03/18/20 13:01 Dose: 1 lozenge Documented by: Ipratropium/Albuterol [Combivent Respimat] 1 puffs INH BID 03/18/17 Albuterol 2.5 mg INH Q4H PRN 04/18/17 LORazepam [Lorazepam] 1 mg PO TID PRN 06/18/19 Dabigatran Etexilate Mesylate [Pradaxa] 150 mg PO BID 03/15/20 Fluticasone Propion/Salmeterol [Wixela 250-50 Inhub] 1 inh PO DAILY 03/15/20 Metoprolol Succinate 50 mg PO DAILY 03/15/20 diltiaZEM CD [Cardizem Cd] 240 mg PO DAILY 03/15/20
[2020-03-18] MEDS: GI COCKTAIL 120 ML BOTTLE PO PRN (16:20)
[2020-03-18] MEDS: MONTELUKAST 10 MG TABLET PO SCH (21:08)
[2020-03-18] MEDS: methylPREDNISolone SUCCINATE 40 MG/ML VIAL IVP SCH (21:37)
[2020-03-19] MEDS: SODIUM CHLORIDE FLUSH 0.9% 10 ML SYRINGE IVP SCH ×3 (00:09→20:59)
[2020-03-19] MEDS: BENZOCAINE/MENTHOL LOZENGE MM PRN (00:14)
[2020-03-19] MEDS: BENZONATATE 100 MG CAPSULE PO PRN (00:14)
[2020-03-19] MEDS: LORazepam 1 MG TABLET PO PRN ×3 (00:14→21:09)
[2020-03-19] MEDS: GI COCKTAIL 120 ML BOTTLE PO PRN ×2 (00:20→04:23)
[2020-03-19] MEDS: LEVALBUTEROL 1.25 MG/3 ML NEB INH PRN ×4 (00:24→15:20)
[2020-03-19] MEDS: METOPROLOL 5 MG/5 ML VIAL IVP PRN ×2 (02:20→11:03)
[2020-03-19] MEDS: ACETAMINOPHEN 325 MG TABLET PO PRN (04:23)
[2020-03-19] MEDS: CALCIUM CARBONATE CHEW 500 MG TABLET PO PRN (04:23)
[2020-03-19] MEDS: methylPREDNISolone SUCCINATE 40 MG/ML VIAL IVP SCH ×3 (05:09→21:10)
[2020-03-19 05:47] LABS: HGB - HEMOGLOBIN 13.7 g/dL (12.0-16.0); LYMPHOCYTES # (AUTO) 0.6 10^3/uL (1.5-3.5); LYMPHOCYTES % (AUTO) 11.2 %; MEAN CORPUSCULAR HEMOGLOBIN 31.6 pg (27.0-31.0); MEAN CORPUSCULAR HGB CONC 31.2 g/dL (32.0-36.0); MEAN CORPUSCULAR VOLUME 101.2 fL (81.0-99.0); MEAN PLATELET VOLUME 10.5 fL (7.9-10.8); MONOCYTES # (AUTO) 0.2 10^3/uL (0.0-1.0); MONOCYTES % (AUTO) 3.5 %; NEUTROPHILS # (AUTO) 4.6 10^3/uL (1.5-6.6); NEUTROPHILS % (AUTO) 84.7 %; PLT - PLATELET COUNT 212 10^3/uL (130-450); RED BLOOD COUNT 4.34 10^6/uL (4.20-5.40); RED CELL DISTRIBUTION WIDTH 14.1 % (12.0-15.0); WHITE BLOOD COUNT 5.4 x10^3/uL (4.8-10.8)
[2020-03-19 05:58] LABS: CALCIUM 8.9 mg/dL (8.5-10.3); CREATININE 0.7 mg/dL (0.4-1.0); MAGNESIUM 2.2 mg/dL (1.7-2.8); PHOSPHORUS 3.5 mg/dL (2.5-4.6)
[2020-03-19] MEDS: IPRATROPIUM 0.2 MG/ML NEB INH SCH ×4 (07:30→20:07)
[2020-03-19] MEDS: BUDESONIDE 0.5 MG/2 ML NEB INH SCH ×2 (07:30→20:07)
[2020-03-19] MEDS ORDERED: SODIUM POLYSTYRENE SULFONATE 15 GM/60 ML BOTTLE PO ONE (08:00)
[2020-03-19] MEDS: METOPROLOL SUCCINATE 50 MG TABLET PO SCH (08:59)
[2020-03-19] MEDS ORDERED: METOPROLOL SUCCINATE 25 MG TABLET PO SCH (09:00)
[2020-03-19] MEDS: diltiaZEM CD 180 MG CAPSULE PO SCH (09:01)
[2020-03-19] MEDS: DABIGATRAN 75 MG CAPSULE PO SCH ×2 (09:01→20:59)
[2020-03-19] MEDS: guaiFENesin 600 MG TABLET PO SCH ×2 (09:01→20:59)
[2020-03-19] MEDS: FAMOTIDINE 20 MG TABLET PO SCH ×2 (09:01→21:00)
[2020-03-19] MEDS: SODIUM CHLORIDE 0.9% 1,000 ML IV SCH ×2 (09:02→20:59)
[2020-03-19] MEDS: cefTRIAXone 2 GM in SODIUM CHLORIDE 0.9% MINIBAG 100 ML IV SCH (09:05)
--- NOTE | 2020-03-19 11:57 | PROVIDER PROGRESS NOTE ---
Assessment/Plan - Problem List (1) Atrial fibrillation with RVR Assessment/Plan: 102,Patient's heart rate is up to 120/130 again. Patient denies chest pain Or palpitation. Continue give Cardizem 360mg, increase metoprolol to 100 mg daily. 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 she has pulse at 88 now. We will continue diltiazem 360 p.o. daily, continue metoprolol 75 mg daily continue Pradaxa 150 p.o. twice daily (2) COPD exacerbation 102, Patient breathing is better, and Patient wheezy reduced, patient has 93% sats on 3 liter oxygen, patient take 2 to 3 L oxygen in the home. Continue steroid and breathing treatment Patient Still present significantly shortness of breathing and still has wheezing, RT report patient sats dropped quickly when she back from bathroom. We will switch Prednisone 40 mg to Solu-Medrol 40 tid daily now. Continue RT breath treatment, continue azithromycin and Rocephin, Continue supplemental oxygen (3) Substernal burning 102, patient has no complaints, We will continue GI cocktail and Tums as needed. Patient still continues to complain substernal burning, add GI cocktail, continue Tums as needed (4) Hyperkalemia 102, potassium 5.3, Patient has 1 dosage of Kayexalate, it seems patient has mild dehydration, patient was give intravenous IV fluids. 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 potassium is 5.4, give one dose of kayexalte. 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 laboratory manager - Current Meds Current Meds: Current Medications Generic Name Dose Route Start Last Admin Trade Name Evelin PRN Reason Stop Dose Admin Acetaminophen 650 mg 03/15/20 16:53 03/19/20 04:23 Tylenol PO 650 mg Q4HR PRN Administration Pain or Fever > 38C (100.4F) Benzonatate 100 mg 03/16/20 03:15 03/19/20 00:14 Tessalon PO 100 mg TID PRN Administration Cough Budesonide 0.5 mg 03/15/20 19:00 03/19/20 07:30 Pulmicort INH 0.5 mg RTBID MATTHEW Administration Calcium Carbonate/Glycine 500 mg 03/16/20 01:25 03/19/20 04:23 Tums PO 500 mg TID PRN Administration Heartburn Dabigatran 150 mg 03/15/20 21:00 03/19/20 09:01 Pradaxa PO 150 mg BID MATTHEW Administration Diltiazem HCl 360 mg 03/18/20 09:00 03/19/20 09:01 Cardizem Cd PO 360 mg DAILY MATTHEW Administration Famotidine 20 mg 03/15/20 21:00 03/19/20 09:01 Pepcid PO 20 mg BID MATTHEW Administration Guaifenesin 600 mg 03/15/20 21:00 03/19/20 09:01 Mucinex PO 600 mg BID MATTHEW Administration Ceftriaxone Sodium 2 gm/ 100 mls @ 200 mls/hr 03/16/20 09:00 03/19/20 09:35 Sodium Chloride IV Infused DAILY MATTHEW Infusion Sodium Chloride 1,000 mls @ 83.333 mls/hr 03/19/20 08:00 03/19/20 09:02 Normal Saline 0.9% IV 03/20/20 07:59 83.333 mls/hr .Q12H MATTHEW Administration Ipratropium Arthur 0.5 mg 03/15/20 21:00 03/19/20 11:20 Atrovent INH 0.5 mg RTQID MATTHEW Administration Levalbuterol HCl 1.25 mg 03/18/20 11:33 03/19/20 11:20 Xopenex INH 03/21/20 17:22 1.25 mg Q2H PRN Administration Shortness of Air/Wheezing Lorazepam 1 mg 03/15/20 17:48 03/19/20 11:32 Ativan PO 1 mg TID PRN Administration NEEDED PER PROVIDER ORDERS Methylprednisolone 40 mg 03/18/20 22:00 03/19/20 05:09 Solu-Medrol (40mg Vial) IVP 40 mg TID MATTHEW Administration Metoprolol Succinate 100 mg 03/19/20 09:00 03/19/20 08:59 Toprol Xl PO 100 mg DAILY MATTHEW Administration Metoprolol Tartrate 5 mg 03/18/20 07:47 03/19/20 11:03 Lopressor Inj IVP 5 mg Q6H PRN Administration HR>110 Montelukast Sodium 10 mg 03/15/20 21:00 03/18/20 21:08 Singulair PO 10 mg QPM MATTHEW Administration Multi-Ingredient Mouthwash/Gargle 30 ml 03/18/20 15:45 03/19/20 04:23 PO 30 ml Q3H PRN Administration Abdominal Pain Sodium Chloride 10 ml 03/15/20 16:53 03/16/20 14:31 Normal Saline Flush 0.9% IVP 10 ml PRN PRN Administration NEEDED PER PROVIDER ORDERS Sodium Chloride 10 ml 03/15/20 17:00 03/19/20 09:06 Normal Saline Flush 0.9% IVP 10 ml 0100,0900,1700 MATTHEW Administration Throat Lozenges 1 lozenge 03/16/20 03:57 03/19/20 00:14 Cepacol MM 1 lozenge Q2HR PRN Administration Throat pain - Lab Result Fish Bone Diagrams: 03/19/20 05:35 03/19/20 05:35 - Additional Planning My Orders: My Active Orders 03/18/20 11:33 Levalbuterol [Xopenex] 1.25 mg INH Q2H PRN 03/18/20 15:45 Gi Cocktail 30 ml PO Q3H PRN 03/18/20 22:00 methylPREDNISolone SUCCINATE [SOLU-Medrol (40MG VIAL)] 40 mg IVP TID 03/19/20 08:00 Sodium Chloride 0.9% [Normal Saline 0.9%] 1,000 ml IV 83.333 mls/hr 03/19/20 09:00 Metoprolol Succinate [Toprol Xl] 100 mg PO DAILY Subjective - Subjective Patient Reports: Feeling Better Objective Vital Signs: Vital Signs - 24 hr 03/18/20 03/18/20 03/18/20 12:50 15:06 15:50 Temperature 36.2 C L 36.7 C Heart Rate 125 H Heart Rate [ 118 H Brachial] Heart Rate [ 88 Monitoring electrodes] Respiratory 24 30 H 24 Rate Blood Pressure Blood Pressure 103/80 129/93 H [Left Brachial artery] Blood Pressure [Right Brachial artery] O2 Saturation 92 98 03/18/20 03/18/20 03/19/20 19:30 20:04 00:24 Temperature 36.7 C 36.3 C L Heart Rate 146 H Heart Rate [ 109 H 103 H Brachial] Heart Rate [ Monitoring electrodes] Respiratory 20 24 22 Rate Blood Pressure Blood Pressure [Left Brachial artery] Blood Pressure 123/88 H 134/93 H [Right Brachial artery] O2 Saturation 94 97 03/19/20 03/19/20 03/19/20 00:25 02:20 02:26 Temperature 36.6 C Heart Rate 128 H Heart Rate [ 122 H Brachial] Heart Rate [ Monitoring electrodes] Respiratory 20 22 Rate Blood Pressure 119/93 H Blood Pressure [Left Brachial artery] Blood Pressure 119/93 H [Right Brachial artery] O2 Saturation 93 03/19/20 03/19/20 03/19/20 02:30 02:35 02:40 Temperature Heart Rate Heart Rate [ 116 H 117 H 108 H Brachial] Heart Rate [ Monitoring electrodes] Respiratory Rate Blood Pressure Blood Pressure [Left Brachial artery] Blood Pressure 124/90 H 117/87 H 121/82 H [Right Brachial artery] O2 Saturation 03/19/20 03/19/20 03/19/20 02:45 02:50 03:00 Temperature Heart Rate Heart Rate [ 82 Brachial] Heart Rate [ 120 H Monitoring electrodes] Respiratory Rate Blood Pressure 111/80 Blood Pressure [Left Brachial artery] Blood Pressure 116/92 H 114/94 H [Right Brachial artery] O2 Saturation 03/19/20 03/19/20 03/19/20 03:15 03:30 07:36 Temperature Heart Rate 110 H Heart Rate [ 112 H 107 H Brachial] Heart Rate [ Monitoring electrodes] Respiratory 28 H Rate Blood Pressure Blood Pressure [Left Brachial artery] Blood Pressure 108/82 H 111/80 [Right Brachial artery] O2 Saturation 03/19/20 03/19/20 03/19/20 08:47 11:03 11:20 Temperature 37.0 C Heart Rate 132 H Heart Rate [ Brachial] Heart Rate [ 131 H Monitoring electrodes] Respiratory 23 26 H Rate Blood Pressure 132/93 H Blood Pressure [Left Brachial artery] Blood Pressure 114/82 H [Right Brachial artery] O2 Saturation 95 03/19/20 11:32 Temperature Heart Rate Heart Rate [ Brachial] Heart Rate [ Monitoring electrodes] Respiratory Rate Blood Pressure 124/102 H Blood Pressure [Left Brachial artery] Blood Pressure [Right Brachial artery] O2 Saturation Oxygen O2 Source Nasal cannula Oxygen Flow Rate 4 I&O (Last 24 Hrs): Intake and Output Totals x24h 03/17/20 03/18/20 03/19/20 23:59 23:59 23:59 Intake Total 2380 425 100 Balance 2380 425 100 General: Alert, Oriented x3, No acute distress HEENT: Atraumatic Neck: Supple Lymphatic: no adenopathy Neuro: Alert, Non Focal, Oriented Times 3 Cardiovascular: Normal S1, Normal S2 Respiratory: Chest non-tender Abdomen: Normal bowel sounds, Soft, No tenderness Extremities: Normal pulses - Results Results: Laboratory Results WBC 5.4 x10^3/uL (4.8-10.8) 03/19/20 05:35 RBC 4.34 10^6/uL (4.20-5.40) 03/19/20 05:35 Hgb 13.7 g/dL (12.0-16.0) 03/19/20 05:35 Hct 43.9 % (37.0-47.0) 03/19/20 05:35 MCV 101.2 fL (81.0-99.0) H 03/19/20 05:35 MCH 31.6 pg (27.0-31.0) H 03/19/20 05:35 MCHC 31.2 g/dL (32.0-36.0) L 03/19/20 05:35 RDW 14.1 % (12.0-15.0) 03/19/20 05:35 Plt Count 212 10^3/uL (130-450) 03/19/20 05:35 MPV 10.5 fL (7.9-10.8) 03/19/20 05:35 Neut # (Auto) 4.6 10^3/uL (1.5-6.6) 03/19/20 05:35 Lymph # (Auto) 0.6 10^3/uL (1.5-3.5) L 03/19/20 05:35 [place] # (Auto) 0.2 10^3/uL (0.0-1.0) 03/19/20 05:35 Eos # (Auto) 0.0 10^3/uL (0.0-0.7) 03/19/20 05:35 Baso # (Auto) 0.0 10^3/uL (0.0-0.1) 03/19/20 05:35 Absolute Nucleated RBC 0.00 x10^3/uL 03/19/20 05:35 Nucleated RBC % 0.0 /100WBC 03/19/20 05:35 PT 16.6 secs (9.9-12.6) H 03/15/20 13:00 INR 1.5 (0.8-1.2) H 03/15/20 13:00 Sodium 134 mmol/L (135-145) L 03/19/20 05:35 Potassium 5.3 mmol/L (3.5-5.0) H 03/19/20 05:35 Chloride 95 mmol/L (101-111) L 03/19/20 05:35 Carbon Dioxide 30 mmol/L (21-32) 03/19/20 05:35 Anion Gap 9.0 (6-13) 03/19/20 05:35 BUN 21 mg/dL (6-20) H 03/19/20 05:35 Creatinine 0.7 mg/dL (0.4-1.0) 03/19/20 05:35 Estimated GFR (MDRD) 84 (>89) L 03/19/20 05:35 Glucose 137 mg/dL (70-100) H 03/19/20 05:35 Calcium 8.9 mg/dL (8.5-10.3) 03/19/20 05:35 Phosphorus 3.5 mg/dL (2.5-4.6) 03/19/20 05:35 Magnesium 2.2 mg/dL (1.7-2.8) 03/19/20 05:35 Total Bilirubin 1.7 mg/dL (0.2-1.0) H 03/15/20 13:00 AST 16 IU/L (10-42) 03/15/20 13:00 ALT < 10 IU/L (10-60) L 03/15/20 13:00 Alkaline Phosphatase 69 IU/L (42-121) 03/15/20 13:00 Troponin I High Sens 5.6 ng/L (2.3-14.8) 03/16/20 09:34 B-Natriuretic Peptide 363 pg/mL (5-100) H 03/15/20 13:00 Total Protein 6.7 g/dL (6.7-8.2) 03/15/20 13:00 Albumin 4.1 g/dL (3.2-5.5) 03/15/20 13:00 Globulin 2.6 g/dL (2.1-4.2) 03/15/20 13:00 Albumin/Globulin Ratio 1.6 (1.0-2.2) 03/15/20 13:00 Lipase 19 U/L (22-51) L 03/15/20 13:00 - Procedures Procedures: Procedures ASSIST W CARDIAC OUTPUT W PULS COMPRESSION, CONTINUOUS (07/13/15) ASSISTANCE WITH RESPIRATORY VENTILATION, 24-96 HRS, CPAP (07/13/15) DRAINAGE OF R PLEURAL CAV WITH DRAIN DEV, PERC APPROACH (07/13/15) EXCISION OF LIVER, OPEN APPROACH, DIAGNOSTIC (10/03/17) INSERTION OF ENDOTRACHEAL AIRWAY INTO TRACHEA, VIA OPENING (07/13/15) INSERTION OF INFUSION DEV INTO SUP VENA CAVA, PERC APPROACH (07/13/15) INSPECTION OF UPPER INTESTINAL TRACT, ENDO (01/21/18) INTRODUCTION OF NUTRITIONAL INTO CENTRAL VEIN, PERC APPROACH (07/13/15) MONITORING OF VENOUS PRESSURE, CENTRAL, PERC APPROACH (07/13/15) REPAIR LEFT INGUINAL REGION, OPEN APPROACH (10/03/17) RESECTION OF APPENDIX, OPEN APPROACH (07/13/15) RESECTION OF BILATERAL FALLOPIAN TUBES, OPEN APPROACH (10/03/17) RESECTION OF BILATERAL OVARIES, OPEN APPROACH (10/03/17) RESECTION OF UTERUS, OPEN APPROACH (10/03/17) RESPIRATORY VENTILATION, 24-96 CONSECUTIVE HOURS (07/13/15) TRANSFUSE NONAUT RED BLOOD CELLS IN PERIPH VEIN, PERC (01/21/18) Sepsis Event Note (H) - Evaluation Current Stage of Sepsis: Ruled out ABX Reporting Has patient been on IV antibiotics over the past 48 hours?: Yes Current Medications - Current Medications Current Medications: Active Medications Acetaminophen (Tylenol) 650 mg PO Q4HR PRN PRN Reason: Pain or Fever > 38C (100.4F) Last Admin: 03/19/20 04:23 Dose: 650 mg Documented by: Benzonatate (Tessalon) 100 mg PO TID PRN PRN Reason: Cough Last Admin: 03/19/20 00:14 Dose: 100 mg Documented by: Budesonide (Pulmicort) 0.5 mg INH RTBID MATTHEW Last Admin: 03/19/20 07:30 Dose: 0.5 mg Documented by: Calcium Carbonate/Glycine (Tums) 500 mg PO TID PRN PRN Reason: Heartburn Last Admin: 03/19/20 04:23 Dose: 500 mg Documented by: Dabigatran (Pradaxa) 150 mg PO BID [facility] Last Admin: 03/19/20 09:01 Dose: 150 mg Documented by: Diltiazem HCl (Cardizem Cd) 360 mg PO DAILY [facility] Last Admin: 03/19/20 09:01 Dose: 360 mg Documented by: Famotidine (Pepcid) 20 mg PO BID [facility] Last Admin: 03/19/20 09:01 Dose: 20 mg Documented by: Guaifenesin (Mucinex) 600 mg PO BID [facility] Last Admin: 03/19/20 09:01 Dose: 600 mg Documented by: Ceftriaxone Sodium 2 gm/ (Sodium Chloride) 100 mls @ 200 mls/hr IV DAILY [facility] Last Infusion: 03/19/20 09:35 Dose: Infused Documented by: Sodium Chloride (Normal Saline 0.9%) 1,000 mls @ 83.333 mls/hr IV .Q12H [facility] Stop: 03/20/20 07:59 Last Admin: 03/19/20 09:02 Dose: 83.333 mls/hr Documented by: Ipratropium Arthur (Atrovent) 0.5 mg INH RTQID [facility] Last Admin: 03/19/20 11:20 Dose: 0.5 mg Documented by: Levalbuterol HCl (Xopenex) 1.25 mg INH Q2H PRN PRN Reason: Shortness of Air/Wheezing Stop: 03/21/20 17:22 Last Admin: 03/19/20 11:20 Dose: 1.25 mg Documented by: Lorazepam (Ativan) 1 mg PO TID PRN PRN Reason: NEEDED PER PROVIDER ORDERS Last Admin: 03/19/20 11:32 Dose: 1 mg Documented by: Methylprednisolone (Solu-Medrol (40mg Vial)) 40 mg IVP TID [facility] Last Admin: 03/19/20 05:09 Dose: 40 mg Documented by: Metoprolol Succinate (Toprol Xl) 100 mg PO DAILY [facility] Last Admin: 03/19/20 08:59 Dose: 100 mg Documented by: Metoprolol Tartrate (Lopressor Inj) 5 mg IVP Q6H PRN PRN Reason: HR>110 Last Admin: 03/19/20 11:03 Dose: 5 mg Documented by: Montelukast Sodium (Singulair) 10 mg PO QPM [facility] Last Admin: 03/18/20 21:08 Dose: 10 mg Documented by: Multi-Ingredient Mouthwash/Gargle () 30 ml PO Q3H PRN PRN Reason: Abdominal Pain Last Admin: 03/19/20 04:23 Dose: 30 ml Documented by: Ondansetron HCl (Zofran Inj) 4 mg IVP Q6HR PRN PRN Reason: Nausea / Vomiting Sodium Chloride (Normal Saline Flush 0.9%) 10 ml IVP PRN PRN PRN Reason: NEEDED PER PROVIDER ORDERS Last Admin: 03/16/20 14:31 Dose: 10 ml Documented by: Sodium Chloride (Normal Saline Flush 0.9%) 10 ml IVP 0100,0900,1700 AMTTHEW Last Admin: 03/19/20 09:06 Dose: 10 ml Documented by: Throat Lozenges (Cepacol) 1 lozenge MM Q2HR PRN PRN Reason: Throat pain Last Admin: 03/19/20 00:14 Dose: 1 lozenge Documented by: Ipratropium/Albuterol [Combivent Respimat] 1 puffs INH BID 03/18/17 Albuterol 2.5 mg INH Q4H PRN 04/18/17 LORazepam [Lorazepam] 1 mg PO TID PRN 06/18/19 Dabigatran Etexilate Mesylate [Pradaxa] 150 mg PO BID 03/15/20 Fluticasone Propion/Salmeterol [Wixela 250-50 Inhub] 1 inh PO DAILY 03/15/20 Metoprolol Succinate 50 mg PO DAILY 03/15/20 diltiaZEM CD [Cardizem Cd] 240 mg PO DAILY 03/15/20
[2020-03-19] MEDS ORDERED: DIGOXIN 500 MCG/2 ML AMP IVP SCH ×2 (19:00)
[2020-03-19] MEDS: MONTELUKAST 10 MG TABLET PO SCH (20:59)
[2020-03-20] MEDS: SODIUM CHLORIDE FLUSH 0.9% 10 ML SYRINGE IVP SCH ×4 (01:12→23:43)
[2020-03-20] MEDS: ACETAMINOPHEN 325 MG TABLET PO PRN (05:26)
[2020-03-20] MEDS: methylPREDNISolone SUCCINATE 40 MG/ML VIAL IVP SCH (05:26)
[2020-03-20] MEDS: CALCIUM CARBONATE CHEW 500 MG TABLET PO PRN (05:29)
[2020-03-20] MEDS: GI COCKTAIL 120 ML BOTTLE PO PRN (05:29)
[2020-03-20] MEDS: LORazepam 1 MG TABLET PO PRN ×3 (05:43→20:43)
[2020-03-20] MEDS ORDERED: SODIUM POLYSTYRENE SULFONATE 15 GM/60 ML BOTTLE PO ONE (07:05)
[2020-03-20 07:50] LABS: CALCIUM 8.5 mg/dL (8.5-10.3); CREATININE 0.6 mg/dL (0.4-1.0)
[2020-03-20] MEDS: BUDESONIDE 0.5 MG/2 ML NEB INH SCH ×2 (07:53→19:30)
[2020-03-20] MEDS: LEVALBUTEROL 1.25 MG/3 ML NEB INH PRN ×3 (07:53→16:19)
[2020-03-20] MEDS: IPRATROPIUM 0.2 MG/ML NEB INH SCH ×4 (07:53→19:30)
[2020-03-20 07:59] LABS: HGB - HEMOGLOBIN 13.9 g/dL (12.0-16.0); LYMPHOCYTES # (AUTO) 0.4 10^3/uL (1.5-3.5); LYMPHOCYTES % (AUTO) 10.5 %; MEAN CORPUSCULAR HEMOGLOBIN 32.1 pg (27.0-31.0); MEAN CORPUSCULAR HGB CONC 31.7 g/dL (32.0-36.0); MEAN CORPUSCULAR VOLUME 101.4 fL (81.0-99.0); MEAN PLATELET VOLUME 10.6 fL (7.9-10.8); MONOCYTES # (AUTO) 0.2 10^3/uL (0.0-1.0); MONOCYTES % (AUTO) 4.2 %; NEUTROPHILS # (AUTO) 3.5 10^3/uL (1.5-6.6); NEUTROPHILS % (AUTO) 84.6 %; PLT - PLATELET COUNT 206 10^3/uL (130-450); RED BLOOD COUNT 4.33 10^6/uL (4.20-5.40); WHITE BLOOD COUNT 4.1 x10^3/uL (4.8-10.8)
[2020-03-20] MEDS: DABIGATRAN 75 MG CAPSULE PO SCH ×2 (08:31→20:44)
[2020-03-20] MEDS: FAMOTIDINE 20 MG TABLET PO SCH ×2 (08:32→20:44)
[2020-03-20] MEDS: diltiaZEM CD 180 MG CAPSULE PO SCH (08:32)
[2020-03-20] MEDS: predniSONE 20 MG TABLET PO SCH (08:32)
[2020-03-20] MEDS: guaiFENesin 600 MG TABLET PO SCH ×2 (08:32→20:43)
[2020-03-20] MEDS: DIGOXIN 125 MCG TABLET PO SCH (08:33)
[2020-03-20] MEDS: BENZOCAINE/MENTHOL LOZENGE MM PRN (08:33)
[2020-03-20] MEDS: NICOTINE 7 MG PATCH TOP SCH (08:34)
[2020-03-20] MEDS: METOPROLOL SUCCINATE 50 MG TABLET PO SCH (08:38)
[2020-03-20] MEDS: cefTRIAXone 2 GM in SODIUM CHLORIDE 0.9% MINIBAG 100 ML IV SCH (08:39)
--- NOTE | 2020-03-20 13:38 | PROVIDER PROGRESS NOTE ---
Subjective - Prog Note Date Prog Note Date: 03/20/20 - Subjective Pt reports feeling: Improved Subjective: Patient was reported to have some confused in the morning. I went to assessment for patient, patient reported she had twice confused in the morning, She is thinking she was at the restaurant and she has dream. She denies any focal neuro deficits. she think her current hospital room make the bad noise " it is the worsest room in the whole hospital, it is nurse told me that." Ask nurse, nurse never told her that. Current Medications - Current Medications Current Medications: Active Medications Acetaminophen (Tylenol) 650 mg PO Q4HR PRN PRN Reason: Pain or Fever > 38C (100.4F) Last Admin: 03/20/20 05:26 Dose: 650 mg Documented by: Benzonatate (Tessalon) 100 mg PO TID PRN PRN Reason: Cough Last Admin: 03/19/20 00:14 Dose: 100 mg Documented by: Budesonide (Pulmicort) 0.5 mg INH RTBID COUNTS [facility]CLUDE 234 BEDS AT THE [facility] Last Admin: 03/20/20 07:53 Dose: 0.5 mg Documented by: Calcium Carbonate/Glycine (Tums) 500 mg PO TID PRN PRN Reason: Heartburn Dabigatran (Pradaxa) 150 mg PO BID [facility]S INCLUDE 234 BEDS AT THE [facility] Last Admin: 03/20/20 08:31 Dose: 150 mg Documented by: Digoxin (Lanoxin) 125 mcg PO DAILY COUNTS INCLUDE 234 BEDS AT THE [facility] Last Admin: 03/20/20 08:33 Dose: 125 mcg Documented by: Diltiazem HCl (Cardizem Cd) 360 mg PO DAILY COUNTS INCLUDE 234 BEDS AT THE [facility] Last Admin: 03/20/20 08:32 Dose: 360 mg Documented by: Famotidine (Pepcid) 20 mg PO BID COUNTS INCLUDE 234 BEDS AT THE [facility] Last Admin: 03/20/20 08:32 Dose: 20 mg Documented by: Guaifenesin (Mucinex) 600 mg PO BID COUNTS INCLUDE 234 BEDS AT THE [facility] Last Admin: 03/20/20 08:32 Dose: 600 mg Documented by: Ceftriaxone Sodium 2 gm/ (Sodium Chloride) 100 mls @ 200 mls/hr IV DAILY COUNTS INCLUDE 234 BEDS AT THE [facility] Last Infusion: 03/20/20 09:40 Dose: Infused Documented by: Ipratropium Stella (Atrovent) 0.5 mg INH RTQID COUNTS INCLUDE 234 BEDS AT THE [facility] Last Admin: 03/20/20 12:35 Dose: 0.5 mg Documented by: Levalbuterol HCl (Xopenex) 1.25 mg INH Q2H PRN PRN Reason: Shortness of Air/Wheezing Stop: 03/21/20 17:22 Last Admin: 03/20/20 12:35 Dose: 1.25 mg Documented by: Lorazepam (Ativan) 1 mg PO TID PRN PRN Reason: NEEDED PER PROVIDER ORDERS Last Admin: 03/20/20 05:43 Dose: 1 mg Documented by: Metoprolol Succinate (Toprol Xl) 100 mg PO DAILY [facility]S INCLUDE 234 BEDS AT THE [facility] Last Admin: 03/20/20 08:38 Dose: 100 mg Documented by: Metoprolol Tartrate (Lopressor Inj) 5 mg IVP Q6H PRN PRN Reason: HR>110 Last Admin: 03/19/20 11:03 Dose: 5 mg Documented by: Montelukast Sodium (Singulair) 10 mg PO QPM COUNTS INCLUDE 234 BEDS AT THE [facility] Last Admin: 03/19/20 20:59 Dose: 10 mg Documented by: Multi-Ingredient Mouthwash/Gargle () 30 ml PO Q3H PRN PRN Reason: Abdominal Pain Last Admin: 03/20/20 05:29 Dose: 30 ml Documented by: Nicotine (Nicoderm) 1 patch TOP DAILY COUNTS INCLUDE 234 BEDS AT THE [facility] Last Admin: 03/20/20 08:34 Dose: 1 patch Documented by: Ondansetron HCl (Zofran Inj) 4 mg IVP Q6HR PRN PRN Reason: Nausea / Vomiting Prednisone (Deltasone) 40 mg PO DAILYWM COUNTS INCLUDE 234 BEDS AT THE [facility] Last Admin: 03/20/20 08:32 Dose: 40 mg Documented by: Sodium Chloride (Normal Saline Flush 0.9%) 10 ml IVP PRN PRN PRN Reason: NEEDED PER PROVIDER ORDERS Last Admin: 03/16/20 14:31 Dose: 10 ml Documented by: Sodium Chloride (Normal Saline Flush 0.9%) 10 ml IVP 0100,0900,1700 COUNTS INCLUDE 234 BEDS AT THE [facility] Last Admin: 03/20/20 01:12 Dose: Not Given Documented by: Throat Lozenges (Cepacol) 1 lozenge MM Q2HR PRN PRN Reason: Throat pain Last Admin: 03/20/20 08:33 Dose: 1 lozenge Documented by: Ipratropium/Albuterol [Combivent Respimat] 1 puffs INH BID 03/18/17 Albuterol 2.5 mg INH Q4H PRN 04/18/17 LORazepam [Lorazepam] 1 mg PO TID PRN 06/18/19 Dabigatran Etexilate Mesylate [Pradaxa] 150 mg PO BID 03/15/20 Fluticasone Propion/Salmeterol [Wixela 250-50 Inhub] 1 inh PO DAILY 03/15/20 Metoprolol Succinate 50 mg PO DAILY 03/15/20 diltiaZEM CD [Cardizem Cd] 240 mg PO DAILY 03/15/20 Objective - Vital Signs/Intake & Output Vital Signs: Vital Signs x48h Temp Pulse Pulse Pulse Resp BP BP 03/20/20 12:36 88 18 03/20/20 09:00 36.6 C 123 H 22 140/116 H 03/20/20 08:08 111 H 140/116 H 03/20/20 07:57 88 16 Pulse Ox 03/20/20 12:36 03/20/20 09:00 95 03/20/20 08:08 03/20/20 07:57 Intake & Output: Intake & Output 03/17/20 03/18/20 03/19/20 03/20/20 23:59 23:59 23:59 23:59 Intake Total 2380 425 6096.508 4823.612 Output Total 200 Balance 2380 425 1543.577 3349.612 - Objective General Appearance: positive: No acute distress, Alert. negative: Lethargic Eyes Bilateral: positive: Normal inspection, PERRL, No lid inflammation ENT: positive: ENT inspection nml, No signs of dehydration. negative: Purulent nasal drainage Neck: positive: Nml inspection, Thyroid nml, Trachea midline. negative: Thyromegaly, Stiff neck, Tracheal deviation Respiratory: positive: Chest non-tender. negative: Wheezes, Rales, Rhonchi Cardiovascular: positive: No murmur, Irregularly irregular. negative: Tachycardia, Bradycardia, Systolic murmur, Diastolic murmur Peripheral Pulses: 2+ Radial (R), 2+ Radial (L) Abdomen: positive: Non-tender, Nml bowel sounds, No distention. negative: Tenderness, Guarding, Rebound Back: positive: Nml inspection Skin: positive: Color nml, No rash, Warm, Dry. negative: Cyanosis, Diaphoresis, Pallor Extremities: positive: Non-tender, Full ROM, Nml appearance. negative: Calf tenderness Neurologic/Psychiatric: positive: Motor nml, Sensation nml. negative: Weakness, Sensory loss, Facial droop, Slurred/abnml speech, Depressed mood/affect - Lab Results Fish Bones: 03/20/20 07:36 03/20/20 07:36 Other Labs: Lab Results x24hrs 03/20/20 03/20/20 Range/Units 07:36 07:36 WBC 4.1 L (4.8-10.8) x10^3/uL RBC 4.33 (4.20-5.40) 10^6/uL Hgb 13.9 (12.0-16.0) g/dL Hct 43.9 (37.0-47.0) % MCV 101.4 H (81.0-99.0) fL MCH 32.1 H (27.0-31.0) pg MCHC 31.7 L (32.0-36.0) g/dL RDW 14.0 (12.0-15.0) % Plt Count 206 (130-450) 10^3/uL MPV 10.6 (7.9-10.8) fL Neut # (Auto) 3.5 (1.5-6.6) 10^3/uL Lymph # (Auto) 0.4 L (1.5-3.5) 10^3/uL [place] # (Auto) 0.2 (0.0-1.0) 10^3/uL Eos # (Auto) 0.0 (0.0-0.7) 10^3/uL Baso # (Auto) 0.0 (0.0-0.1) 10^3/uL Absolute Nucleated RBC 0.00 x10^3/uL Nucleated RBC % 0.0 /100WBC Sodium 135 (135-145) mmol/L Potassium 4.7 (3.5-5.0) mmol/L Chloride 94 L (101-111) mmol/L Carbon Dioxide 31 (21-32) mmol/L Anion Gap 10.0 (6-13) BUN 20 (6-20) mg/dL Creatinine 0.6 (0.4-1.0) mg/dL Estimated GFR (MDRD) 100 (>89) Glucose 125 H (70-100) mg/dL Calcium 8.5 (8.5-10.3) mg/dL ABX Reporting Has patient been on IV antibiotics over the past 48 hours?: Yes Sepsis Event Note (H) - Evaluation Current Stage of Sepsis: Ruled out Assessment/Plan - Problem List (1) Delirium Impression: pt Developed some confused. change Intravenous solu-medro to prednisone and reduced dosage to 40 mg Prednisone since pt's respiratory status is improved. Patient has no focal neuro deficit in the assessment. Neuro Check (2) Atrial fibrillation with RVR Assessment/Plan: 103, improved, patient's heart rate is 88 now. Continue Cardizem, metoprolol, digoxin. advised patient to check Digoxin serum concentration by her PCP office after discharge. 102,Patient's heart rate is up to 120/130 again. Patient denies chest pain Or palpitation. Continue give Cardizem 360mg, increase metoprolol to 100 mg daily. Continue magnetizer, because the patient also has severe COPD, dependent on pt HR conditions, pt might need to have digoxin instead of increase of dosage of beta cadence. she has pulse at 88 now. We will continue diltiazem 360 p.o. daily, continue metoprolol 75 mg daily continue Pradaxa 150 p.o. twice daily (3) COPD exacerbation 103, improved patient had a 95% sats on 2 L oxygen. Change intravenous solu- metro to prednisone 102, Patient breathing is better, and Patient wheezy reduced, patient has 93% sats on 3 liter oxygen, patient take 2 to 3 L oxygen in the home. Continue steroid and breathing treatment Patient Still present significantly shortness of breathing and still has wheezing, RT report patient sats dropped quickly when she back from bathroom. We will switch Prednisone 40 mg to Solu-Medrol 40 tid daily now. Continue RT breath treatment, continue azithromycin and Rocephin, Continue supplemental oxyg en (4) Substernal burning 103, resolved/stable. 102, patient has no complaints, We will continue GI cocktail and Tums as needed. Patient still continues to complain substernal burning, add GI cocktail, continue Tums as needed (5) Hyperkalemia 103, resolved 102, potassium 5.3, Patient has 1 dosage of Kayexalate, it seems patient has mild dehydration, patient was give intravenous IV fluids. Continue laboratory director. potassium is 5.4, give one dose of kayexalte. Continue laboratory director
[2020-03-20] MEDS: BENZONATATE 100 MG CAPSULE PO PRN (16:54)
[2020-03-20] MEDS: MONTELUKAST 10 MG TABLET PO SCH (20:44)
[2020-03-20] MEDS: METOPROLOL 5 MG/5 ML VIAL IVP PRN (23:43)
[2020-03-21] MEDS: LORazepam 1 MG TABLET PO PRN ×3 (00:31→17:58)
[2020-03-21] MEDS: BENZOCAINE/MENTHOL LOZENGE MM PRN ×4 (03:24→21:30)
[2020-03-21 05:21] LABS: BASOPHILS % (AUTO) 0.1 %; HGB - HEMOGLOBIN 12.9 g/dL (12.0-16.0); LYMPHOCYTES # (AUTO) 0.8 10^3/uL (1.5-3.5); LYMPHOCYTES % (AUTO) 11.9 %; MEAN CORPUSCULAR HEMOGLOBIN 31.1 pg (27.0-31.0); MEAN CORPUSCULAR HGB CONC 29.9 g/dL (32.0-36.0); MEAN CORPUSCULAR VOLUME 104.1 fL (81.0-99.0); MEAN PLATELET VOLUME 10.1 fL (7.9-10.8); MONOCYTES # (AUTO) 0.8 10^3/uL (0.0-1.0); MONOCYTES % (AUTO) 11.2 %; NEUTROPHILS # (AUTO) 5.2 10^3/uL (1.5-6.6); NEUTROPHILS % (AUTO) 76.2 %; PLT - PLATELET COUNT 216 10^3/uL (130-450); RED BLOOD COUNT 4.15 10^6/uL (4.20-5.40); RED CELL DISTRIBUTION WIDTH 14.3 % (12.0-15.0); WHITE BLOOD COUNT 6.8 x10^3/uL (4.8-10.8)
[2020-03-21 05:34] LABS: CALCIUM 8.9 mg/dL (8.5-10.3); CREATININE 0.7 mg/dL (0.4-1.0)
[2020-03-21] MEDS: BENZONATATE 100 MG CAPSULE PO PRN ×2 (05:47→21:29)
[2020-03-21] MEDS: IPRATROPIUM 0.2 MG/ML NEB INH SCH ×4 (05:50→19:04)
[2020-03-21] MEDS: BUDESONIDE 0.5 MG/2 ML NEB INH SCH ×2 (05:50→19:03)
[2020-03-21] MEDS: ACETAMINOPHEN 325 MG TABLET PO PRN (06:54)
[2020-03-21 08:38] LABS: DIGOXIN 0.2 ng/mL
[2020-03-21] MEDS: METOPROLOL SUCCINATE 25 MG TABLET PO SCH ×2 (08:39→21:21)
[2020-03-21] MEDS: diltiaZEM CD 180 MG CAPSULE PO SCH (08:39)
[2020-03-21] MEDS: guaiFENesin 600 MG TABLET PO SCH ×2 (08:40→21:18)
[2020-03-21] MEDS: predniSONE 20 MG TABLET PO SCH (08:40)
[2020-03-21] MEDS: DABIGATRAN 75 MG CAPSULE PO SCH ×2 (08:41→21:19)
[2020-03-21] MEDS: FAMOTIDINE 20 MG TABLET PO SCH ×2 (08:41→21:18)
[2020-03-21] MEDS: DIGOXIN 125 MCG TABLET PO SCH (08:41)
[2020-03-21 08:45] LABS: ABG PH 7.27 (7.35-7.45)
[2020-03-21] MEDS: NICOTINE 7 MG PATCH TOP SCH (08:46)
[2020-03-21 08:48] LABS: ABG BASE EXCESS 7.4 mmol/L (-2.0-3.0); ABG HCO3 37.6 mmol/L (22.0-26.0); ABG OXYGEN SATURATION 92 % (94-98); ABG PCO2 83 mmHg (34-45); ABG PO2 68 mmHg (80-100); ABG TCO2 40.1 MMOL/L (21.0-29.0)
[2020-03-21 08:49] LABS: ALLEN TEST POSITIVE
[2020-03-21] MEDS: SODIUM CHLORIDE FLUSH 0.9% 10 ML SYRINGE IVP SCH ×3 (08:49→21:32)
[2020-03-21] MEDS: cefTRIAXone 2 GM in SODIUM CHLORIDE 0.9% MINIBAG 100 ML IV SCH (10:00)
[2020-03-21] MEDS: LEVALBUTEROL 1.25 MG/3 ML NEB INH PRN ×3 (10:57→19:03)
[2020-03-21] MEDS: GI COCKTAIL 120 ML BOTTLE PO PRN (12:30)
--- NOTE | 2020-03-21 12:57 | PROVIDER PROGRESS NOTE ---
Subjective - Prog Note Date Prog Note Date: 03/21/20 - Subjective Pt reports feeling: Improved Subjective: Patient is alert, orientated +2, self, location but not time. pt has logically conversation with me. Patient refused to have ABG on yesterday. In the morning after I discussed with the patient, and RT talked with the patient, patient agreed to have ABG. Patient has been in the normal range CO2 in the before 5 days. Today pt's CO2 at venous BMP test show elevated to 37. ABG was ordered for pt on yesterday but pt refused to have. In ABG test today shows pH 7.27, PCO2 83, total CO2 40, PHCO3 37.6. Current Medications - Current Medications Current Medications: Active Medications Acetaminophen (Tylenol) 650 mg PO Q4HR PRN PRN Reason: Pain or Fever > 38C (100.4F) Last Admin: 03/21/20 06:54 Dose: 650 mg Documented by: Benzonatate (Tessalon) 100 mg PO TID PRN PRN Reason: Cough Last Admin: 03/21/20 05:47 Dose: 100 mg Documented by: Budesonide (Pulmicort) 0.5 mg INH RTBID [facility] Last Admin: 03/21/20 05:50 Dose: 0.5 mg Documented by: Calcium Carbonate/Glycine (Tums) 500 mg PO TID PRN PRN Reason: Heartburn Dabigatran (Pradaxa) 150 mg PO BID [facility] Last Admin: 03/21/20 08:41 Dose: 150 mg Documented by: Digoxin (Lanoxin) 125 mcg PO DAILY [facility] Last Admin: 03/21/20 08:41 Dose: 125 mcg Documented by: Diltiazem HCl (Cardizem Cd) 360 mg PO DAILY [facility] Last Admin: 03/21/20 08:39 Dose: 360 mg Documented by: Famotidine (Pepcid) 20 mg PO BID [facility] Last Admin: 03/21/20 08:41 Dose: 20 mg Documented by: Guaifenesin (Mucinex) 600 mg PO BID [facility] Last Admin: 03/21/20 08:40 Dose: 600 mg Documented by: Ceftriaxone Sodium 2 gm/ (Sodium Chloride) 100 mls @ 200 mls/hr IV DAILY [facility] Last Infusion: 03/21/20 12:24 Dose: Infused Documented by: Ipratropium [place] (Atrovent) 0.5 mg INH RTQID [facility] Last Admin: 03/21/20 10:57 Dose: 0.5 mg Documented by: Levalbuterol HCl (Xopenex) 1.25 mg INH Q2H PRN PRN Reason: Shortness of Air/Wheezing Stop: 03/21/20 17:22 Last Admin: 03/21/20 10:57 Dose: 1.25 mg Documented by: Lorazepam (Ativan) 1 mg PO TID PRN PRN Reason: NEEDED PER PROVIDER ORDERS Last Admin: 03/21/20 08:50 Dose: 1 mg Documented by: Metoprolol Succinate (Toprol Xl) 75 mg PO BID [facility] Last Admin: 03/21/20 08:39 Dose: 75 mg Documented by: Metoprolol Tartrate (Lopressor Inj) 5 mg IVP Q6H PRN PRN Reason: HR>110 Last Admin: 03/20/20 23:43 Dose: 5 mg Documented by: Montelukast Sodium (Singulair) 10 mg PO QPM [facility] Last Admin: 03/20/20 20:44 Dose: 10 mg Documented by: Multi-Ingredient Mouthwash/Gargle () 30 ml PO Q3H PRN PRN Reason: Abdominal Pain Last Admin: 03/20/20 05:29 Dose: 30 ml Documented by: Nicotine (Nicoderm) 1 patch TOP DAILY [facility] Last Admin: 03/21/20 08:46 Dose: 1 patch Documented by: Ondansetron HCl (Zofran Inj) 4 mg IVP Q6HR PRN PRN Reason: Nausea / Vomiting Prednisone (Deltasone) 40 mg PO DAILYWM [facility] Last Admin: 03/21/20 08:40 Dose: 40 mg Documented by: Sodium Chloride (Normal Saline Flush 0.9%) 10 ml IVP PRN PRN PRN Reason: NEEDED PER PROVIDER ORDERS Last Admin: 03/16/20 14:31 Dose: 10 ml Documented by: Sodium Chloride (Normal Saline Flush 0.9%) 10 ml IVP 0100,0900,1700 [facility] Last Admin: 03/21/20 08:49 Dose: 10 ml Documented by: Throat Lozenges (Cepacol) 1 lozenge MM Q2HR PRN PRN Reason: Throat pain Last Admin: 03/21/20 08:49 Dose: 1 lozenge Documented by: Ipratropium/Albuterol [Combivent Respimat] 1 puffs INH BID 03/18/17 Albuterol 2.5 mg INH Q4H PRN 04/18/17 LORazepam [Lorazepam] 1 mg PO TID PRN 06/18/19 Dabigatran Etexilate Mesylate [Pradaxa] 150 mg PO BID 03/15/20 Fluticasone Propion/Salmeterol [Wixela 250-50 Inhub] 1 inh PO DAILY 03/15/20 Metoprolol Succinate 50 mg PO DAILY 03/15/20 diltiaZEM CD [Cardizem Cd] 240 mg PO DAILY 03/15/20 Objective - Vital Signs/Intake & Output Vital Signs: Vital Signs x48h Temp Pulse Pulse Pulse Resp BP Pulse Ox 03/21/20 12:32 36.3 C L 104 H 18 136/95 H 94 03/21/20 10:58 108 H 22 03/21/20 07:48 36.4 C L 105 H 20 138/94 H 95 03/21/20 05:51 98 18 03/21/20 04:55 36.5 C 108 H 142/93 H 92 Intake & Output: Intake & Output 03/18/20 03/19/20 03/20/20 03/21/20 23:59 23:59 23:59 23:59 Intake Total 425 4606.180 3373.612 220 Output Total 200 Balance 425 8480.118 2108.612 220 - Objective General Appearance: positive: No acute distress, Alert. negative: Lethargic Eyes Bilateral: positive: Normal inspection, PERRL, No lid inflammation ENT: positive: ENT inspection nml, No signs of dehydration. negative: Purulent nasal drainage Neck: positive: Nml inspection, Thyroid nml, Trachea midline. negative: Thyromegaly, Stiff neck, Tracheal deviation Respiratory: positive: Chest non-tender, Other (diminished lung sound in all her lung lobe). negative: Wheezes, Rales, Rhonchi Cardiovascular: positive: Regular rate & rhythm, No murmur, Tachycardia. negative: Irregularly irregular, Bradycardia, Systolic murmur, Diastolic murmur Peripheral Pulses: 2+ Radial (R), 2+ Radial (L) Abdomen: positive: Non-tender, Nml bowel sounds, No distention. negative: Tenderness, Guarding, Rebound Back: positive: Nml inspection. negative: CVA tenderness (R), CVA tenderness (L) Skin: positive: Color nml, No rash, Warm, Dry. negative: Cyanosis, Diaphoresis, Pallor Extremities: positive: Non-tender, Full ROM, Nml appearance. negative: Calf tenderness Neurologic/Psychiatric: positive: Oriented x3, Motor nml, Sensation nml. negative: Weakness, Sensory loss, Facial droop, Slurred/abnml speech, Depressed mood/affect - Lab Results Fish Bones: 03/21/20 05:15 03/21/20 05:15 Other Labs: Lab Results x24hrs 03/21/20 03/21/20 03/21/20 Range/Units 08:35 05:15 05:15 WBC (4.8-10.8) x10^3/uL RBC (4.20-5.40) 10^6/uL Hgb (12.0-16.0) g/dL Hct (37.0-47.0) % MCV (81.0-99.0) fL MCH (27.0-31.0) pg MCHC (32.0-36.0) g/dL RDW (12.0-15.0) % Plt Count (130-450) 10^3/uL MPV (7.9-10.8) fL Neut # (Auto) (1.5-6.6) 10^3/uL Lymph # (Auto) (1.5-3.5) 10^3/uL [place] # (Auto) (0.0-1.0) 10^3/uL Eos # (Auto) (0.0-0.7) 10^3/uL Baso # (Auto) (0.0-0.1) 10^3/uL Absolute Nucleated RBC x10^3/uL Nucleated RBC % /100WBC Bld Gas Analysis Time 0844 Sample Site RIGHT RADIAL ABG pH 7.27 L (7.35-7.45) ABG pCO2 83 H* (34-45) mmHg ABG pO2 68 L (80-100) mmHg ABG HCO3 37.6 H (22.0-26.0) mmol/L ABG Total CO2 40.1 H* (21.0-29.0) MMOL/L ABG O2 Saturation 92 L (94-98) % ABG Base Excess 7.4 H (-2.0-3.0) mmol/L William Test POSITIVE O2 Delivery Device NASAL CANNULA O2 Liters/Min 2.50 LPM Sodium 137 (135-145) mmol/L Potassium 3.8 (3.5-5.0) mmol/L Chloride 94 L (101-111) mmol/L Carbon Dioxide 37 H (21-32) mmol/L Anion Gap 6.0 (6-13) BUN 19 (6-20) mg/dL Creatinine 0.7 (0.4-1.0) mg/dL Estimated GFR (MDRD) 84 L (>89) Glucose 101 H (70-100) mg/dL Calcium 8.9 (8.5-10.3) mg/dL Last Dose Date UNK Last Dose Time UNK Digoxin 0.2 ng/mL 03/21/20 Range/Units 05:15 WBC 6.8 (4.8-10.8) x10^3/uL RBC 4.15 L (4.20-5.40) 10^6/uL Hgb 12.9 (12.0-16.0) g/dL Hct 43.2 (37.0-47.0) % MCV 104.1 H (81.0-99.0) fL MCH 31.1 H (27.0-31.0) pg MCHC 29.9 L (32.0-36.0) g/dL RDW 14.3 (12.0-15.0) % Plt Count 216 (130-450) 10^3/uL MPV 10.1 (7.9-10.8) fL Neut # (Auto) 5.2 (1.5-6.6) 10^3/uL Lymph # (Auto) 0.8 L (1.5-3.5) 10^3/uL [place] # (Auto) 0.8 (0.0-1.0) 10^3/uL Eos # (Auto) 0.0 (0.0-0.7) 10^3/uL Baso # (Auto) 0.0 (0.0-0.1) 10^3/uL Absolute Nucleated RBC 0.02 x10^3/uL Nucleated RBC % 0.3 /100WBC Bld Gas Analysis Time Sample Site ABG pH (7.35-7.45) ABG pCO2 (34-45) mmHg ABG pO2 (80-100) mmHg ABG HCO3 (22.0-26.0) mmol/L ABG Total CO2 (21.0-29.0) MMOL/L ABG O2 Saturation (94-98) % ABG Base Excess (-2.0-3.0) mmol/L William Test O2 Delivery Device O2 Liters/Min LPM Sodium (135-145) mmol/L Potassium (3.5-5.0) mmol/L Chloride (101-111) mmol/L Carbon Dioxide (21-32) mmol/L Anion Gap (6-13) BUN (6-20) mg/dL Creatinine (0.4-1.0) mg/dL Estimated GFR (MDRD) (>89) Glucose (70-100) mg/dL Calcium (8.5-10.3) mg/dL Last Dose Date Last Dose Time Digoxin ng/mL ABX Reporting Has patient been on IV antibiotics over the past 48 hours?: Yes Sepsis Event Note (H) - Evaluation Current Stage of Sepsis: Ruled out Assessment/Plan - Problem List (1) CO2 retention Impression: In ABG test today pt shows pH 7.27, PCO2 83, total CO2 40, PHCO3 37.6. CO2 retention presented. But the patient is alert and orientated. Patient has a history of CO2 retention and narcosis, history of COPD and home oxygen dependent. plan: Patient take 1-2 L oxygen in the home so we will try to reduce patient oxygen to 1.5 L of O2 to reduce CO2 retention. We will reduce steroid use dosage to Prodnisone. will recheck ABG at this afternoon (2) Delirium 03/21 resolved. Patient is alert, orientated +2, self, location but not time. pt has logically conversation with me. (3) Atrial fibrillation with RVR Assessment/Plan: 104,Patient still has 120 heart rate in the night, We will continue Cardizem and digoxin, Metoprolol twice daily 75mg.Continue telemetry and vital signs monitor. 103, improved, patient's heart rate is 88 now. Continue Cardizem, metoprolol, digoxin. advised patient to check Digoxin serum concentration by her PCP office after discharge. 102,Patient's heart rate is up to 120/130 again. Patient denies chest pain Or palpitation. Continue give Cardizem 360mg, increase metoprolol to 100 mg daily. Continue clinical research monitor, because the patient also has severe COPD, dependent on pt HR conditions, pt might need to have digoxin instead of increase of dosage of beta cadence. she has pulse at 88 now. We will continue diltiazem 360 p.o. daily, continue metoprolol 75 mg daily continue Pradaxa 150 p.o. twice daily (4) COPD exacerbation 104,Patient take 1 to 2 L oxygen at home. We will try to reduce oxygen to 1.5 L and continue monitor patient sats to help reduce CO2 retention, continue Prednisone. 103, improved patient had a 95% sats on 2 L oxygen. Change intravenous solu- metro to prednisone 102, Patient breathing is better, and Patient wheezy reduced, patient has 93% sats on 3 liter oxygen, patient take 2 to 3 L oxygen in the home. Continue steroid and breathing treatment Patient Still present significantly shortness of breathing and still has wheezing, RT report patient sats dropped quickly when she back from bathroom. We will switch Prednisone 40 mg to Solu-Medrol 40 tid daily now. Continue RT breath treatment, continue azithromycin and Rocephin, Continue supplemental oxygen (5) Substernal burning 103, resolved/stable. 102, patient has no complaints, We will continue GI cocktail and Tums as needed. Patient still continues to complain substernal burning, add GI cocktail, continue Tums as needed (6) Hyperkalemia 103, resolved 102, potassium 5.3, Patient has 1 dosage of Kayexalate, it seems patient has mild dehydration, patient was give intravenous IV fluids. Continue laboratory tester. potassium is 5.4, give one dose of kayexalte. Continue laboratory tester
[2020-03-21] MEDS: CALCIUM CARBONATE CHEW 500 MG TABLET PO PRN (13:44)
[2020-03-21 16:36] LABS: ABG PH 7.29 (7.35-7.45)
[2020-03-21 16:37] LABS: ABG HCO3 35.5 mmol/L (22.0-26.0); ABG OXYGEN SATURATION 89 % (94-98); ABG PO2 58 mmHg (80-100); ABG TCO2 37.9 MMOL/L (21.0-29.0); ALLEN TEST POSITIVE
[2020-03-21 16:40] LABS: ABG PCO2 76 mmHg (34-45)
[2020-03-21] MEDS: SACCHAROMYCES BOULARDII 250 MG CAPSULE PO SCH (17:50)
[2020-03-21] MEDS: MONTELUKAST 10 MG TABLET PO SCH (21:18)
[2020-03-22] MEDS: LORazepam 1 MG TABLET PO PRN ×3 (00:35→20:22)
[2020-03-22 05:00] LABS: BASOPHILS % (AUTO) 0.2 %; EOSINOPHILS % (AUTO) 0.1 %; HGB - HEMOGLOBIN 13.3 g/dL (12.0-16.0); LYMPHOCYTES # (AUTO) 1.7 10^3/uL (1.5-3.5); LYMPHOCYTES % (AUTO) 19.8 %; MEAN CORPUSCULAR HEMOGLOBIN 30.5 pg (27.0-31.0); MEAN CORPUSCULAR HGB CONC 29.7 g/dL (32.0-36.0); MEAN CORPUSCULAR VOLUME 102.8 fL (81.0-99.0); MONOCYTES # (AUTO) 0.8 10^3/uL (0.0-1.0); MONOCYTES % (AUTO) 9.1 %; NEUTROPHILS # (AUTO) 5.9 10^3/uL (1.5-6.6); NEUTROPHILS % (AUTO) 70.1 %; PLT - PLATELET COUNT 206 10^3/uL (130-450); RED BLOOD COUNT 4.36 10^6/uL (4.20-5.40); WHITE BLOOD COUNT 8.4 x10^3/uL (4.8-10.8)
[2020-03-22 05:21] LABS: CREATININE 0.6 mg/dL (0.4-1.0)
[2020-03-22] MEDS: IPRATROPIUM 0.2 MG/ML NEB INH SCH ×4 (05:56→20:09)
[2020-03-22] MEDS: BUDESONIDE 0.5 MG/2 ML NEB INH SCH ×2 (05:57→20:10)
[2020-03-22] MEDS: BENZOCAINE/MENTHOL LOZENGE MM PRN (08:05)
[2020-03-22] MEDS: NICOTINE 7 MG PATCH TOP SCH (08:05)
[2020-03-22] MEDS: diltiaZEM CD 180 MG CAPSULE PO SCH (08:08)
[2020-03-22] MEDS: DIGOXIN 125 MCG TABLET PO SCH (08:08)
[2020-03-22] MEDS: DABIGATRAN 75 MG CAPSULE PO SCH ×2 (08:09→20:23)
[2020-03-22] MEDS: METOPROLOL SUCCINATE 25 MG TABLET PO SCH ×2 (08:09→20:23)
[2020-03-22] MEDS: predniSONE 20 MG TABLET PO SCH (08:11)
[2020-03-22] MEDS: SACCHAROMYCES BOULARDII 250 MG CAPSULE PO SCH ×2 (08:11→18:36)
[2020-03-22] MEDS: SODIUM CHLORIDE FLUSH 0.9% 10 ML SYRINGE IVP SCH ×2 (08:12→16:09)
[2020-03-22] MEDS: FAMOTIDINE 20 MG TABLET PO SCH ×2 (08:12→20:22)
[2020-03-22] MEDS: guaiFENesin 600 MG TABLET PO SCH ×2 (08:12→20:23)
[2020-03-22] MEDS ORDERED: cefTRIAXone 1 GM in SODIUM CHLORIDE 0.9% MINIBAG 100 ML IV SCH (09:00)
[2020-03-22] MEDS: ALBUTEROL NEB 2.5 MG/3 ML INH PRN ×3 (11:00→20:09)
--- NOTE | 2020-03-22 11:14 | PHARMACY PROGRESS NOTE ---
- Monitoring Indication for anticoagulation: Atrial Fibrillation Previous home regime: PRADAXA 150MG PO BID Potentially interacting medications: calcium carbonate - may decrease efficacy, separate by two hours Other anticoagulation: None Risk factors for bleed: Hypertension, History of past bleeding, History of stroke, Heart disease or [place], Age >65 - Recommendations Dosing: Anticoagulation Monitoring 03/22/20 03/21/20 03/20/20 04:50 05:15 07:36 Hgb 13.3 12.9 13.9 Hct 44.8 43.2 43.9 PT INR 03/19/20 03/18/20 03/17/20 05:35 05:10 05:08 Hgb 13.7 13.8 13.7 Hct 43.9 47.2 H 43.5 PT INR 03/16/20 03/15/20 03/15/20 09:34 13:00 13:00 Hgb 13.5 16.2 H Hct 43.3 49.7 H PT 16.6 H INR 1.5 H Last Dose Given: 5mg S&S of bleeding:None noted Pharmacy recommendation: Continue current regime
--- NOTE | 2020-03-22 13:47 | PROVIDER PROGRESS NOTE ---
Subjective - Prog Note Date Prog Note Date: 03/22/20 - Subjective Subjective: She feels like her breathing has not improved. She has a nonproductive cough. She has not slept since Sunday night. She did not sleep all night as she was upset with one of the nurses. She reports visual hallucinations. She states she is seeing bugs on the floor wall. She took a video and scented to her son to show him. She realized when she looked on the video that there are no bugs there but she still sees them in person. She notes her legs are more edematous today. Current Medications - Current Medications Current Medications: Active Medications Acetaminophen (Tylenol) 650 mg PO Q4HR PRN PRN Reason: Pain or Fever > 38C (100.4F) Last Admin: 03/21/20 06:54 Dose: 650 mg Documented by: Albuterol () 2.5 mg INH RTQ4H PRN PRN Reason: Wheezing Last Admin: 03/22/20 11:00 Dose: 2.5 mg Documented by: Benzonatate (Tessalon) 100 mg PO TID PRN PRN Reason: Cough Last Admin: 03/21/20 21:29 Dose: 100 mg Documented by: Budesonide (Pulmicort) 0.5 mg INH RTBID [facility] Last Admin: 03/22/20 05:57 Dose: 0.5 mg Documented by: Calcium Carbonate/Glycine (Tums) 500 mg PO TID PRN PRN Reason: Heartburn Last Admin: 03/21/20 13:44 Dose: 500 mg Documented by: Dabigatran (Pradaxa) 150 mg PO BID [facility] Last Admin: 03/22/20 08:09 Dose: 150 mg Documented by: Digoxin (Lanoxin) 125 mcg PO DAILY [facility] Last Admin: 03/22/20 08:08 Dose: 125 mcg Documented by: Diltiazem HCl (Cardizem Cd) 360 mg PO DAILY [facility] Last Admin: 03/22/20 08:08 Dose: 360 mg Documented by: Famotidine (Pepcid) 20 mg PO BID [facility] Last Admin: 03/22/20 08:12 Dose: 20 mg Documented by: Furosemide (Lasix Inj 40 Mg Vial) 40 mg IVP ONCE [facility] Stop: 03/22/20 15:45 Guaifenesin (Mucinex) 600 mg PO BID [facility] Last Admin: 03/22/20 08:12 Dose: 600 mg Documented by: Ipratropium [place] (Atrovent) 0.5 mg INH RTQID [facility] Last Admin: 03/22/20 11:00 Dose: 0.5 mg Documented by: Lorazepam (Ativan) 1 mg PO TID PRN PRN Reason: NEEDED PER PROVIDER ORDERS Last Admin: 03/22/20 08:11 Dose: 1 mg Documented by: Metoprolol Succinate (Toprol Xl) 75 mg PO BID [facility] Last Admin: 03/22/20 08:09 Dose: 75 mg Documented by: Montelukast Sodium (Singulair) 10 mg PO QPM [facility] Last Admin: 03/21/20 21:18 Dose: 10 mg Documented by: Multi-Ingredient Mouthwash/Gargle () 30 ml PO Q3H PRN PRN Reason: Abdominal Pain Last Admin: 03/21/20 12:30 Dose: 30 ml Documented by: Nicotine (Nicoderm) 1 patch TOP DAILY [facility] Last Admin: 03/22/20 08:05 Dose: 1 patch Documented by: Ondansetron HCl (Zofran Inj) 4 mg IVP Q6HR PRN PRN Reason: Nausea / Vomiting Saccharomyces Boulardii (Florastor) 250 mg PO BIDWM [facility] Last Admin: 03/22/20 08:11 Dose: 250 mg Documented by: Sodium Chloride (Normal Saline Flush 0.9%) 10 ml IVP PRN PRN PRN Reason: NEEDED PER PROVIDER ORDERS Last Admin: 03/16/20 14:31 Dose: 10 ml Documented by: Sodium Chloride (Normal Saline Flush 0.9%) 10 ml IVP 0100,0900,1700 [facility] Last Admin: 03/22/20 08:12 Dose: 10 ml Documented by: Throat Lozenges (Cepacol) 1 lozenge MM Q2HR PRN PRN Reason: Throat pain Last Admin: 03/22/20 08:05 Dose: 1 lozenge Documented by: Ipratropium/Albuterol [Combivent Respimat] 1 puffs INH BID 03/18/17 Albuterol 2.5 mg INH Q4H PRN 04/18/17 LORazepam [Lorazepam] 1 mg PO TID PRN 06/18/19 Dabigatran Etexilate Mesylate [Pradaxa] 150 mg PO BID 03/15/20 Fluticasone Propion/Salmeterol [Wixela 250-50 Inhub] 1 inh PO DAILY 03/15/20 Metoprolol Succinate 50 mg PO DAILY 03/15/20 diltiaZEM CD [Cardizem Cd] 240 mg PO DAILY 03/15/20 Objective - Vital Signs/Intake & Output Reviewed Vital Signs: Yes Vital Signs: Vital Signs x48h Temp Pulse Pulse Resp BP Pulse Ox 03/22/20 11:00 95 22 03/22/20 08:36 36.3 C L 107 H 20 149/102 H 86 L 03/22/20 05:58 69 18 Intake & Output: Intake & Output 03/19/20 03/20/20 03/21/20 03/22/20 23:59 23:59 23:59 23:59 Intake Total 8732.355 2449.612 696 740 Output Total 200 Balance 3605.974 5146.612 696 740 - Objective General Appearance: positive: No acute distress, Alert Eyes Bilateral: positive: Normal inspection, Conjunctivae nml ENT: positive: ENT inspection nml, Other (Nasal cannula) Neck: positive: Nml inspection Respiratory: positive: No respiratory distress. negative: Wheezes, Rales Cardiovascular: positive: No murmur, Irregularly irregular. negative: Tachycar halle, Bradycardia, Systolic murmur Skin: positive: Warm, Dry Extremities: positive: Pedal edema (+1 to +2 pitting edema in bilateral lower extremities.) Neurologic/Psychiatric: positive: Oriented x3, Other (She is oriented to self, location, time. She reports visual hallucinations and states that she sees bugs on the ground and wall.). negative: Disoriented to person, Disoriented to place, Disoriented to time, Slurred/abnml speech - Lab Results Fish Bones: 03/22/20 04:50 03/22/20 04:50 Other Labs: Lab Results x24hrs 03/22/20 03/22/20 03/21/20 Range/Units 04:50 04:50 16:29 WBC 8.4 (4.8-10.8) x10^3/uL RBC 4.36 (4.20-5.40) 10^6/uL Hgb 13.3 (12.0-16.0) g/dL Hct 44.8 (37.0-47.0) % MCV 102.8 H (81.0-99.0) fL MCH 30.5 (27.0-31.0) pg MCHC 29.7 L (32.0-36.0) g/dL RDW 14.0 (12.0-15.0) % Plt Count 206 (130-450) 10^3/uL MPV 10.0 (7.9-10.8) fL Neut # (Auto) 5.9 (1.5-6.6) 10^3/uL Lymph # (Auto) 1.7 (1.5-3.5) 10^3/uL [place] # (Auto) 0.8 (0.0-1.0) 10^3/uL Eos # (Auto) 0.0 (0.0-0.7) 10^3/uL Baso # (Auto) 0.0 (0.0-0.1) 10^3/uL Absolute Nucleated RBC 0.00 x10^3/uL Nucleated RBC % 0.0 /100WBC Bld Gas Analysis Time 1637 Sample Site LEFT RADIAL ABG pH 7.29 L (7.35-7.45) ABG pCO2 76 H* (34-45) mmHg ABG pO2 58 L (80-100) mmHg ABG HCO3 35.5 H (22.0-26.0) mmol/L ABG Total CO2 37.9 H (21.0-29.0) MMOL/L ABG O2 Saturation 89 L (94-98) % ABG Base Excess 6.0 H (-2.0-3.0) mmol/L William Test POSITIVE O2 Delivery Device NASAL CANNULA O2 Liters/Min 1.50 LPM Sodium 141 (135-145) mmol/L Potassium 3.7 (3.5-5.0) mmol/L Chloride 93 L (101-111) mmol/L Carbon Dioxide 41 H* (21-32) mmol/L Anion Gap 7.0 (6-13) BUN 15 (6-20) mg/dL Creatinine 0.6 (0.4-1.0) mg/dL Estimated GFR (MDRD) 100 (>89) Glucose 84 (70-100) mg/dL Calcium 9.0 (8.5-10.3) mg/dL Sepsis Event Note (H) - Evaluation Current Stage of Sepsis: Ruled out Assessment/Plan - Problem List (1) Acute on chronic respiratory failure with hypoxia and hypercapnia Impression: This is likely secondary to her COPD as well as possible component of heart failure. Her ABG yesterday revealed a pH 7.29 with a PCO2 of 76 and a bicarbonate of 36. Her bicarbonate has increased morning to 41 likely in compensation for the hypercapnia. She does not have any obvious evidence of CO2 narcosis but she does have visual hallucinations. She is not wheezing on exam she not appear to be in COPD exacerbation at this time. We will obtain a repeat ABG and if her pH remains decreased with an elevated CO2, we will place her in the ICU for a trial of BiPAP to see if that will help with her visual h allucinations. We will also give her a dose of IV Lasix today as she does appear edematous in her lower extremities. We will check a BNP in the morning. (2) Atrial fibrillation with RVR Impression: Her heart rate is better controlled today after treating the COPD exacerbation and initiating digoxin in addition to diltiazem and metoprolol. We will continu e her current medications as her heart rate is well controlled. Continue Pradaxa for anticoagulation. Continue to monitor on telemetry. (3) Visual hallucinations Impression: The etiology of this is not clear. This may be secondary to elevated carbon dioxide. She does not have a history of alcohol abuse with this does not appear to be alcohol withdrawal. May just be delirium given her lack of sleep over the past 48 hours. She is oriented and appropriate otherwise. No focal deficits on exam to suggest a stroke. We will check ABG as mentioned above. Will encourage patient to get some rest tonight as I do think some sleep will help her. (4) Acute heart failure with preserved ejection fraction (HFpEF) Impression: I suspect her dyspnea may related to heart failure and pulmonary hypertension given her prior echocardiogram findings other than COPD at this time. She does have significant lower extremity edema. We will give her a dose of IV Lasix and check a BNP. Will consider repeating a chest x-ray in the morning (5) COPD exacerbation Impression: This has resolved. We will discontinue steroids. She is ready completed a course of antibiotics. We will continue supplemental oxygen for goal saturation greater than 88%.
[2020-03-22] MEDS ORDERED: FUROSEMIDE 40 MG/4 ML VIAL IVP SCH (15:13)
[2020-03-22 15:54] LABS: ABG PH 7.37 (7.35-7.45); ABG PO2 57 mmHg (80-100)
[2020-03-22 15:55] LABS: ABG HCO3 42.2 mmol/L (22.0-26.0); ABG OXYGEN SATURATION 90 % (94-98); ALLEN TEST POSITIVE
[2020-03-22 15:58] LABS: ABG PCO2 75 mmHg (34-45); ABG TCO2 44.6 MMOL/L (21.0-29.0)
[2020-03-22] MEDS: ACETAMINOPHEN 325 MG TABLET PO PRN (16:09)
--- NOTE | 2020-03-22 18:00 | ADVANCE CARE PLANNING NOTE ---
Advance Care Planning - Planning Encounter Date: 03/22/20 Time: 05:10 Purpose: To discuss current medical condition and clarify goals of care. Parties in Attendance: The patient and her son, AMOS. Decisional Capacity of the Patient: The patient has ability to make her own medical decisions. - Diagnosis for Encounter (1) Acute on chronic respiratory failure with hypoxia and hypercapnia Summary: She was admitted a little over a week ago for atrial fibrillation with rapid ventricular response and a COPD exacerbation. She was IV antibiotics and steroids with improvement in her symptoms. Her heart rate has been difficult to control. She has chronic hypercapnic and hypoxic respiratory failure secondary to her COPD and she is on oxygen at baseline. Her bicarbonate has been increasing and so repeat ABGs have been obtained which show she is hypercapnic but her pH is acceptable. She is hypervolemic likely from right heart failure due to her COPD and so she is being diuresed at this time. (2) Atrial fibrillation with RVR Summary: He had previously been on metoprolol, diltiazem, Pradaxa. Her heart rate has been difficult to control during his hospitalization. This is improved after the addition of digoxin. She does remain in atrial fibrillation. (3) COPD exacerbation Summary: He was admitted for COPD exacerbation treated with steroids, Xopenex, antibiotics. Clinically she is improving as there is less wheezing she moving more air. Although I do not have PFTs, I suspect she has severe COPD at baseline given her need for oxygen and her chronic hypercapnic respiratory failure - Encounter Subjective/Patient's Story: Patient lives at home alone. He has been on oxygen since October of this year after she was hospitalized for COPD exacerbation and A. fib with RVR. She states her quality of life has been poor and she gets very short of breath with minimal exertion. She has been home much his whole year since the pandemic started. She states that some days she wishes like living other days she does not care to continue on but then she thinks about her son and daughter and that motivates her to continue to live. She states she does still smoke and she has quit in the past for few months but would start to smoke again. She reports has not smoked for 2 weeks. She has told her son in the past that she does not want to leave her home and she does not want any strangers in the home such as caregivers. This has caused her son to be in a difficult position as he wants what is best for his mother but she is also quite stubborn and has clearly stated in the past that she does not want assisted living and does not want help at home. This is made difficult for him to not be too pushy but at the same time, he can see her decline over the past few months and is quite concerned about her progressive decline in her multiple hospitalizations this year. Objective/Medical Story: The patient has been hospitalized now 4 times this year for COPD exacerbations. During her last hospitalization, she started on oxygen for chronic hypoxic respiratory failure. She also required BiPAP during the hospitalization for presumed CO2 narcosis. She was discharged on trilogy given her advanced respi ratory failure but she only had it for 1 month as it caused her too much to continue to use it. She stated to cost her $350 a month which she could not afford. He presents again this admission with Aung matthews with RVR and COPD exacerbation. Her hospitalizations have become more frequent and prolonged with each admission. Goals of Care: She states that at this time, she does want to be a full code. She states she has gone back and forth on this in the past and her mind may change in the future but she wants to be a full code at this time unless she has anoxic brain injury. We discussed palliative care and what the service provides. Her son would like to meet with palliative care and the patient is agreeable to this. Her goal is to go home as soon as possible as she does not like to be in the hospital. She is not sure if she will quit smoking at this time although she understands the importance of it given her COPD. Plan: The patient would like to be a full code. She has already had CPR 3 times in the past and understands what it entails. If she were to have anoxic brain injury and be in a vegetative state then she would not want to live and that would not be an acceptable quality of life for her. She is agreeable to a palliative care consult and so we will asked them to see her during this hospitalization. Additional Discussion: Discussed what entails of CPR including the need for mechanical ventilation and an ICU admission which is usually quite prolonged. We also discussed the field of palliative care and what that entails and why a consult is recommended. Code Status: Attempt Resuscitation Time spent on advance care plannin
[2020-03-22] MEDS: MONTELUKAST 10 MG TABLET PO SCH (20:22)
[2020-03-23] MEDS: SODIUM CHLORIDE FLUSH 0.9% 10 ML SYRINGE IVP SCH ×4 (00:48→23:50)
[2020-03-23 05:11] LABS: BASOPHILS % (AUTO) 0.1 %; EOSINOPHILS % (AUTO) 0.2 %; HGB - HEMOGLOBIN 14.7 g/dL (12.0-16.0); LYMPHOCYTES # (AUTO) 1.8 10^3/uL (1.5-3.5); LYMPHOCYTES % (AUTO) 22.2 %; MEAN CORPUSCULAR HEMOGLOBIN 30.9 pg (27.0-31.0); MEAN CORPUSCULAR HGB CONC 30.6 g/dL (32.0-36.0); MEAN CORPUSCULAR VOLUME 101.1 fL (81.0-99.0); MEAN PLATELET VOLUME 9.7 fL (7.9-10.8); MONOCYTES # (AUTO) 0.8 10^3/uL (0.0-1.0); MONOCYTES % (AUTO) 9.2 %; NEUTROPHILS # (AUTO) 5.5 10^3/uL (1.5-6.6); NEUTROPHILS % (AUTO) 67.8 %; PLT - PLATELET COUNT 214 10^3/uL (130-450); RED BLOOD COUNT 4.76 10^6/uL (4.20-5.40); RED CELL DISTRIBUTION WIDTH 13.9 % (12.0-15.0); WHITE BLOOD COUNT 8.2 x10^3/uL (4.8-10.8)
[2020-03-23 05:26] LABS: BUN - BLOOD UREA NITROGEN 11 mg/dL (6-20); CALCIUM 8.8 mg/dL (8.5-10.3); CHLORIDE 84 mmol/L (101-111); CREATININE 0.6 mg/dL (0.4-1.0); GLUCOSE 91 mg/dL (70-100); SODIUM 140 mmol/L (135-145)
[2020-03-23 05:30] LABS: CARBON DIOXIDE - CO2 > 45 mmol/L (21-32)
[2020-03-23] MEDS: ALBUTEROL NEB 2.5 MG/3 ML INH PRN ×4 (08:15→20:08)
[2020-03-23] MEDS: BUDESONIDE 0.5 MG/2 ML NEB INH SCH ×2 (08:15→20:08)
[2020-03-23] MEDS: IPRATROPIUM 0.2 MG/ML NEB INH SCH ×4 (08:15→20:08)
[2020-03-23] MEDS ORDERED: FUROSEMIDE 20 MG/2 ML VIAL IVP SCH (09:00)
[2020-03-23] MEDS: GI COCKTAIL 120 ML BOTTLE PO PRN (09:43)
[2020-03-23] MEDS: CALCIUM CARBONATE CHEW 500 MG TABLET PO PRN (09:44)
[2020-03-23] MEDS: DABIGATRAN 75 MG CAPSULE PO SCH ×2 (10:21→21:05)
[2020-03-23] MEDS: diltiaZEM CD 180 MG CAPSULE PO SCH (10:22)
[2020-03-23] MEDS: guaiFENesin 600 MG TABLET PO SCH ×2 (10:23→21:05)
[2020-03-23] MEDS: METOPROLOL SUCCINATE 25 MG TABLET PO SCH (10:24)
[2020-03-23] MEDS: SACCHAROMYCES BOULARDII 250 MG CAPSULE PO SCH ×2 (10:24→17:14)
[2020-03-23] MEDS: FAMOTIDINE 20 MG TABLET PO SCH ×2 (10:24→21:05)
[2020-03-23] MEDS: BENZOCAINE/MENTHOL LOZENGE MM PRN ×3 (10:24→23:49)
[2020-03-23] MEDS: DIGOXIN 125 MCG TABLET PO SCH (10:25)
[2020-03-23] MEDS: LORazepam 1 MG TABLET PO PRN (10:25)
[2020-03-23] MEDS: NICOTINE 7 MG PATCH TOP SCH (10:31)
--- NOTE | 2020-03-23 14:20 | PROVIDER PROGRESS NOTE ---
Subjective - Prog Note Date Prog Note Date: 03/23/20 - Subjective Pt reports feeling: Improved Subjective: Patient is comfortably lying in the bed. She reported she feel better. Patient is alert and orientated, patient has no hallucination or confusion on today. pt's yesterday provider report pt requests for palliative care, I discussed care plan with her also, she also requests for palliative care. Palliative care was ordered and will see pt on tomorrow. I personally discussed with RT for patient oxygen saturation status. RT Report patient had 88 to 90% of sats on 1.5 L of oxygen in most time, Except the patient walk to the bathroom and bend position without her chest extension when she was in the sleep, her O2 sats was drop a Little, but quickly return to her baseline. Current Medications - Current Medications Current Medications: Active Medications Acetaminophen (Tylenol) 650 mg PO Q4HR PRN PRN Reason: Pain or Fever > 38C (100.4F) Last Admin: 03/22/20 16:09 Dose: 650 mg Documented by: Albuterol () 2.5 mg INH RTQ4H PRN PRN Reason: Wheezing Last Admin: 03/23/20 11:30 Dose: 2.5 mg Documented by: Benzonatate (Tessalon) 100 mg PO TID PRN PRN Reason: Cough Last Admin: 03/21/20 21:29 Dose: 100 mg Documented by: Budesonide (Pulmicort) 0.5 mg INH RTBID MATTHEW Last Admin: 03/23/20 08:15 Dose: 0.5 mg Documented by: Calcium Carbonate/Glycine (Tums) 500 mg PO TID PRN PRN Reason: Heartburn Last Admin: 03/23/20 09:44 Dose: 500 mg Documented by: Dabigatran (Pradaxa) 150 mg PO BID [facility] Last Admin: 03/23/20 10:21 Dose: 150 mg Documented by: Digoxin (Lanoxin) 125 mcg PO DAILY [facility] Last Admin: 03/23/20 10:25 Dose: 125 mcg Documented by: Diltiazem HCl (Cardizem Cd) 360 mg PO DAILY [facility] Last Admin: 03/23/20 10:22 Dose: 360 mg Documented by: Famotidine (Pepcid) 20 mg PO BID [facility] Last Admin: 03/23/20 10:24 Dose: 20 mg Documented by: Guaifenesin (Mucinex) 600 mg PO BID [facility] Last Admin: 03/23/20 10:23 Dose: 600 mg Documented by: Ipratropium [place]ley (Atrovent) 0.5 mg INH RTQID [facility] Last Admin: 03/23/20 11:30 Dose: 0.5 mg Documented by: Lorazepam (Ativan) 1 mg PO TID PRN PRN Reason: NEEDED PER PROVIDER ORDERS Last Admin: 03/23/20 10:25 Dose: 1 mg Documented by: Metoprolol Succinate (Toprol Xl) 75 mg PO BID [facility] Last Admin: 03/23/20 10:24 Dose: 75 mg Documented by: Montelukast Sodium (Singulair) 10 mg PO QPM [facility] Last Admin: 03/22/20 20:22 Dose: 10 mg Documented by: Multi-Ingredient Mouthwash/Gargle () 30 ml PO Q3H PRN PRN Reason: Abdominal Pain Last Admin: 03/23/20 09:43 Dose: 30 ml Documented by: Nicotine (Nicoderm) 1 patch TOP DAILY [facility] Last Admin: 03/23/20 10:31 Dose: 1 patch Documented by: Ondansetron HCl (Zofran Inj) 4 mg IVP Q6HR PRN PRN Reason: Nausea / Vomiting Last Admin: 03/23/20 10:21 Dose: 4 mg Documented by: Saccharomyces Boulardii (Florastor) 250 mg PO BIDWM [facility] Last Admin: 03/23/20 10:24 Dose: 250 mg Documented by: Sodium Chloride (Normal Saline Flush 0.9%) 10 ml IVP PRN PRN PRN Reason: NEEDED PER PROVIDER ORDERS Last Admin: 03/16/20 14:31 Dose: 10 ml Documented by: Sodium Chloride (Normal Saline Flush 0.9%) 10 ml IVP 0100,0900,1700 [facility] Last Admin: 03/23/20 10:21 Dose: 10 ml Documented by: Spironolactone (Aldactone) 25 mg PO DAILY [facility] Throat Lozenges (Cepacol) 1 lozenge MM Q2HR PRN PRN Reason: Throat pain Last Admin: 03/23/20 10:24 Dose: 1 lozenge Documented by: Ipratropium/Albuterol [Combivent Respimat] 1 puffs INH BID 03/18/17 Albuterol 2.5 mg INH Q4H PRN 04/18/17 LORazepam [Lorazepam] 1 mg PO TID PRN 06/18/19 Dabigatran Etexilate Mesylate [Pradaxa] 150 mg PO BID 03/15/20 Fluticasone Propion/Salmeterol [Wixela 250-50 Inhub] 1 inh PO DAILY 03/15/20 Metoprolol Succinate 50 mg PO DAILY 03/15/20 diltiaZEM CD [Cardizem Cd] 240 mg PO DAILY 03/15/20 Objective - Vital Signs/Intake & Output Vital Signs: Vital Signs x48h Temp Pulse Pulse Resp BP Pulse Ox 03/23/20 13:00 36.7 C 86 25 H 103/64 88 L 03/23/20 11:30 89 22 03/23/20 08:41 36.4 C L 86 24 137/95 H 95 03/23/20 08:15 99 22 03/23/20 06:34 92 Intake & Output: Intake & Output 03/20/20 03/21/20 03/22/20 03/23/20 23:59 23:59 23:59 23:59 Intake Total 1498.192 009 6708 470 Output Total 2250 200 Balance 1498.612 696 -1240 270 - Objective General Appearance: positive: No acute distress, Alert. negative: Lethargic Eyes Bilateral: positive: Normal inspection, PERRL, No lid inflammation ENT: positive: ENT inspection nml, Pharynx nml. negative: Purulent nasal drainage, Dry mucous membranes Neck: positive: Nml inspection, Thyroid nml, Trachea midline. negative: Thyromegaly, Stiff neck, Tracheal deviation Respiratory: positive: Chest non-tender, No respiratory distress, Rales. negative: Breath sounds nml, Wheezes, Rhonchi Cardiovascular: positive: Irregularly irregular. negative: Regular rate & rhythm, No murmur, Tachycardia, Bradycardia, Systolic murmur, Diastolic murmur Peripheral Pulses: 2+ Radial (R), 2+ Radial (L) Abdomen: positive: Non-tender, Nml bowel sounds, No distention. negative: Tenderness, Guarding, Rebound Back: positive: Nml inspection. negative: CVA tenderness (R), CVA tenderness (L) Skin: positive: Color nml, No rash, Warm, Dry. negative: Cyanosis, Diaphoresis, Pallor Extremities: positive: Non-tender, Full ROM, Nml appearance. negative: Calf tenderness Neurologic/Psychiatric: positive: Oriented x3, Motor nml, Sensation nml. negative: Weakness, Sensory loss, Facial droop, Slurred/abnml speech, Depressed mood/affect - Lab Results Fish Bones: 03/23/20 05:00 03/23/20 05:00 Other Labs: Lab Results x24hrs 03/23/20 03/23/20 03/23/20 Range/Units 05:00 05:00 05:00 WBC (4.8-10.8) x10^3/uL RBC (4.20-5.40) 10^6/uL Hgb (12.0-16.0) g/dL Hct (37.0-47.0) % MCV (81.0-99.0) fL MCH (27.0-31.0) pg MCHC (32.0-36.0) g/dL RDW (12.0-15.0) % Plt Count (130-450) 10^3/uL MPV (7.9-10.8) fL Neut # (Auto) (1.5-6.6) 10^3/uL Lymph # (Auto) (1.5-3.5) 10^3/uL [place] # (Auto) (0.0-1.0) 10^3/uL Eos # (Auto) (0.0-0.7) 10^3/uL Baso # (Auto) (0.0-0.1) 10^3/uL Absolute Nucleated RBC x10^3/uL Nucleated RBC % /100WBC Bld Gas Analysis Time Sample Site ABG pH (7.35-7.45) ABG pCO2 (34-45) mmHg ABG pO2 (80-100) mmHg ABG HCO3 (22.0-26.0) mmol/L ABG Total CO2 (21.0-29.0) MMOL/L ABG O2 Saturation (94-98) % ABG Base Excess (-2.0-3.0) mmol/L William Test O2 Delivery Device Vent Mode Sodium 140 (135-145) mmol/L Potassium 3.5 (3.5-5.0) mmol/L Chloride 84 L (101-111) mmol/L Carbon Dioxide > 45 H* (21-32) mmol/L Anion Gap 10.0 (6-13) BUN 11 (6-20) mg/dL Creatinine 0.6 (0.4-1.0) mg/dL Estimated GFR (MDRD) 100 (>89) Glucose 91 (70-100) mg/dL Calcium 8.8 (8.5-10.3) mg/dL Ammonia 21.1 (7-35) umol/L B-Natriuretic Peptide 1142 H (5-100) pg/mL 03/23/20 03/22/20 Range/Units 05:00 15:40 WBC 8.2 (4.8-10.8) x10^3/uL RBC 4.76 (4.20-5.40) 10^6/uL Hgb 14.7 (12.0-16.0) g/dL Hct 48.1 H (37.0-47.0) % MCV 101.1 H (81.0-99.0) fL MCH 30.9 (27.0-31.0) pg MCHC 30.6 L (32.0-36.0) g/dL RDW 13.9 (12.0-15.0) % Plt Count 214 (130-450) 10^3/uL MPV 9.7 (7.9-10.8) fL Neut # (Auto) 5.5 (1.5-6.6) 10^3/uL Lymph # (Auto) 1.8 (1.5-3.5) 10^3/uL [place] # (Auto) 0.8 (0.0-1.0) 10^3/uL Eos # (Auto) 0.0 (0.0-0.7) 10^3/uL Baso # (Auto) 0.0 (0.0-0.1) 10^3/uL Absolute Nucleated RBC 0.00 x10^3/uL Nucleated RBC % 0.0 /100WBC Bld Gas Analysis Time 1540 Sample Site RIGHT RADIAL ABG pH 7.37 (7.35-7.45) ABG pCO2 75 H* (34-45) mmHg ABG pO2 57 L (80-100) mmHg ABG HCO3 42.2 H (22.0-26.0) mmol/L ABG Total CO2 44.6 H* (21.0-29.0) MMOL/L ABG O2 Saturation 90 L (94-98) % ABG Base Excess 13.0 H (-2.0-3.0) mmol/L William Test POSITIVE O2 Delivery Device NASAL CANNULA Vent Mode 2 Sodium (135-145) mmol/L Potassium (3.5-5.0) mmol/L Chloride (101-111) mmol/L Carbon Dioxide (21-32) mmol/L Anion Gap (6-13) BUN (6-20) mg/dL Creatinine (0.4-1.0) mg/dL Estimated GFR (MDRD) (>89) Glucose (70-100) mg/dL Calcium (8.5-10.3) mg/dL Ammonia (7-35) umol/L B-Natriuretic Peptide (5-100) pg/mL ABX Reporting Has patient been on IV antibiotics over the past 48 hours?: No Sepsis Event Note (H) - Evaluation Current Stage of Sepsis: Ruled out Assessment/Plan - Problem List (1) Acute on chronic respiratory failure with hypercapnia Impression: (1) Acute on chronic respiratory failure with hypoxia and hypercapnia Impression: Patient remain 88-90 sats on 1.5 liter of O2 in most of her day time except she was at exertion or bend position per RT report. Patient stay comfortably without respiratory distress. Patient is alert and orientated today, She has no confusion or hallucination reported on today. Clinically it is not indicated to have new ABG for patient. In yesterday afternoon ABG reveal pt had normal PH, reduced PCO2 75, HCO3 increased likely for compensation for the hypercapnia. it is improved. Patient request palliative care on today. yesterday provider discussed the palliative care with pt as well, pt also requested. Palliative care will see patient on tomorrow (2) Atrial fibrillation with RVR Impression: Patient has been on very difficulty position to control her heart before. Now he r HR is controlled. her BP is slight lower now. will continue daily Metoprolol and reduce QPM metoprolol dosage, continue digoxin which was tested in therapeutic arrange, Cardizem and Pradaxa for anticoagulation. (3) Visual hallucinations Impression: resolved. pt has no hallucination or confusion on today. (4) pulmonary hypertension Impression: In new echo, patient had preserved EF but increased RVSP to 70mmHG and with moderate right heart abnormal pressure. Patient also presented mild bilateral lower extremity edema. BNP was 1142, increased from prior study. Give a dosage of Lasix and ordered spironolactone for patient. Continue vital signs to monitor patient (5) COPD exacerbation Impression: Agree it was resolved. discontinue steroids and antibiotics.continue breath t reatment and supplemental oxygen for goal saturation greater than 88%.
[2020-03-23] MEDS: MONTELUKAST 10 MG TABLET PO SCH (21:05)
[2020-03-23] MEDS: METOPROLOL SUCCINATE 50 MG TABLET PO SCH (21:05)
[2020-03-23] MEDS: BENZONATATE 100 MG CAPSULE PO PRN ×2 (21:08→21:13)
[2020-03-24] MEDS: LORazepam 1 MG TABLET PO PRN ×2 (04:08→13:41)
[2020-03-24] MEDS: ACETAMINOPHEN 325 MG TABLET PO PRN (04:08)
[2020-03-24] MEDS: BENZONATATE 100 MG CAPSULE PO PRN ×3 (04:09→22:40)
[2020-03-24] MEDS: BENZOCAINE/MENTHOL LOZENGE MM PRN (04:09)
[2020-03-24] MEDS: CALCIUM CARBONATE CHEW 500 MG TABLET PO PRN ×2 (05:19→16:18)
[2020-03-24] MEDS ORDERED: WATER FOR INJECTION,STERILE 10 ML ONE (05:20)
[2020-03-24 05:39] LABS: BASOPHILS % (AUTO) 0.1 %; EOSINOPHILS % (AUTO) 0.1 %; HGB - HEMOGLOBIN 14.3 g/dL (12.0-16.0); LYMPHOCYTES # (AUTO) 1.5 10^3/uL (1.5-3.5); LYMPHOCYTES % (AUTO) 15.9 %; MEAN CORPUSCULAR HEMOGLOBIN 31.8 pg (27.0-31.0); MEAN CORPUSCULAR VOLUME 102.7 fL (81.0-99.0); MEAN PLATELET VOLUME 9.9 fL (7.9-10.8); MONOCYTES # (AUTO) 0.9 10^3/uL (0.0-1.0); MONOCYTES % (AUTO) 9.4 %; NEUTROPHILS # (AUTO) 6.8 10^3/uL (1.5-6.6); NEUTROPHILS % (AUTO) 73.9 %; PLT - PLATELET COUNT 196 10^3/uL (130-450); RED CELL DISTRIBUTION WIDTH 13.9 % (12.0-15.0); WHITE BLOOD COUNT 9.2 x10^3/uL (4.8-10.8)
[2020-03-24 05:49] LABS: BUN - BLOOD UREA NITROGEN 16 mg/dL (6-20); CALCIUM 8.6 mg/dL (8.5-10.3); CHLORIDE 83 mmol/L (101-111); CREATININE 0.6 mg/dL (0.4-1.0); GLUCOSE 116 mg/dL (70-100); SODIUM 139 mmol/L (135-145)
[2020-03-24 05:51] LABS: CARBON DIOXIDE - CO2 > 45 mmol/L (21-32)
[2020-03-24] MEDS ORDERED: FUROSEMIDE 20 MG/2 ML VIAL IVP ONE (08:45)
[2020-03-24] MEDS: BUDESONIDE 0.5 MG/2 ML NEB INH SCH ×2 (08:50→20:00)
[2020-03-24] MEDS: ALBUTEROL NEB 2.5 MG/3 ML INH PRN ×4 (08:50→20:00)
[2020-03-24] MEDS: IPRATROPIUM 0.2 MG/ML NEB INH SCH ×4 (08:50→20:00)
[2020-03-24] MEDS: SPIRONOLACTONE 25 MG TABLET PO SCH (09:28)
[2020-03-24] MEDS: METOPROLOL SUCCINATE 50 MG TABLET PO SCH ×2 (09:28→21:54)
[2020-03-24] MEDS: SACCHAROMYCES BOULARDII 250 MG CAPSULE PO SCH ×2 (09:28→16:18)
[2020-03-24] MEDS: DABIGATRAN 75 MG CAPSULE PO SCH ×2 (09:29→21:54)
[2020-03-24] MEDS: FAMOTIDINE 20 MG TABLET PO SCH ×2 (09:30→21:54)
[2020-03-24] MEDS: DIGOXIN 125 MCG TABLET PO SCH (09:30)
[2020-03-24] MEDS: diltiaZEM CD 180 MG CAPSULE PO SCH (09:30)
[2020-03-24] MEDS: guaiFENesin 600 MG TABLET PO SCH ×2 (09:31→21:53)
[2020-03-24] MEDS: NICOTINE 7 MG PATCH TOP SCH (09:39)
[2020-03-24] MEDS: SODIUM CHLORIDE FLUSH 0.9% 10 ML SYRINGE IVP SCH ×2 (09:50→16:18)
--- NOTE | 2020-03-24 17:12 | PROVIDER PROGRESS NOTE ---
Subjective - Subjective Pt reports feeling: Improved Subjective: pt is alert and oriented. Patient feels comfortable without acute respiratory distress, she has no hallucination or confused. pt request palliative care consult. palliative care did visit pt, we will followup. Current Medications - Current Medications Current Medications: Active Medications Acetaminophen (Tylenol) 650 mg PO Q4HR PRN PRN Reason: Pain or Fever > 38C (100.4F) Last Admin: 03/24/20 04:08 Dose: 650 mg Documented by: Albuterol () 2.5 mg INH RTQ4H PRN PRN Reason: Wheezing Last Admin: 03/24/20 16:45 Dose: 2.5 mg Documented by: Benzonatate (Tessalon) 100 mg PO TID PRN PRN Reason: Cough Last Admin: 03/24/20 13:41 Dose: 100 mg Documented by: Budesonide (Pulmicort) 0.5 mg INH RTBID [facility] Last Admin: 03/24/20 08:50 Dose: 0.5 mg Documented by: Calcium Carbonate/Glycine (Tums) 500 mg PO TID PRN PRN Reason: Heartburn Last Admin: 03/24/20 16:18 Dose: 500 mg Documented by: Dabigatran (Pradaxa) 150 mg PO BID [facility] Last Admin: 03/24/20 09:29 Dose: 150 mg Documented by: Digoxin (Lanoxin) 125 mcg PO DAILY [facility] Last Admin: 03/24/20 09:30 Dose: 125 mcg Documented by: Diltiazem HCl (Cardizem Cd) 360 mg PO DAILY [facility] Last Admin: 03/24/20 09:30 Dose: 360 mg Documented by: Famotidine (Pepcid) 20 mg PO BID [facility] Last Admin: 03/24/20 09:30 Dose: 20 mg Documented by: Guaifenesin (Mucinex) 600 mg PO BID [facility] Last Admin: 03/24/20 09:31 Dose: 600 mg Documented by: Ipratropium [place] (Atrovent) 0.5 mg INH RTQID [facility] Last Admin: 03/24/20 16:45 Dose: 0.5 mg Documented by: Lorazepam (Ativan) 1 mg PO TID PRN PRN Reason: NEEDED PER PROVIDER ORDERS Last Admin: 03/24/20 13:41 Dose: 1 mg Documented by: Metoprolol Succinate (Toprol Xl) 75 mg PO DAILY [facility] Last Admin: 03/24/20 09:28 Dose: 75 mg Documented by: Metoprolol Succinate (Toprol Xl) 50 mg PO QPM [facility] Last Admin: 03/23/20 21:05 Dose: 50 mg Documented by: Montelukast Sodium (Singulair) 10 mg PO QPM [facility] Last Admin: 03/23/20 21:05 Dose: 10 mg Documented by: Multi-Ingredient Mouthwash/Gargle () 30 ml PO Q3H PRN PRN Reason: Abdominal Pain Last Admin: 03/23/20 09:43 Dose: 30 ml Documented by: Nicotine (Nicoderm) 1 patch TOP DAILY [facility] Last Admin: 03/24/20 09:39 Dose: 1 patch Documented by: Ondansetron HCl (Zofran Inj) 4 mg IVP Q6HR PRN PRN Reason: Nausea / Vomiting Last Admin: 03/23/20 10:21 Dose: 4 mg Documented by: Saccharomyces Boulardii (Florastor) 250 mg PO BIDWM [facility] Last Admin: 03/24/20 16:18 Dose: 250 mg Documented by: Sodium Chloride (Normal Saline Flush 0.9%) 10 ml IVP PRN PRN PRN Reason: NEEDED PER PROVIDER ORDERS Last Admin: 03/16/20 14:31 Dose: 10 ml Documented by: Sodium Chloride (Normal Saline Flush 0.9%) 10 ml IVP 0100,0900,1700 [facility] Last Admin: 03/24/20 16:18 Dose: 10 ml Documented by: Spironolactone (Aldactone) 25 mg PO DAILY [facility] Last Admin: 03/24/20 09:28 Dose: 25 mg Documented by: Throat Lozenges (Cepacol) 1 lozenge MM Q2HR PRN PRN Reason: Throat pain Last Admin: 03/24/20 04:09 Dose: 1 lozenge Documented by: Ipratropium/Albuterol [Combivent Respimat] 1 puffs INH BID 03/18/17 Albuterol 2.5 mg INH Q4H PRN 04/18/17 LORazepam [Lorazepam] 1 mg PO TID PRN 06/18/19 Dabigatran Etexilate Mesylate [Pradaxa] 150 mg PO BID 03/15/20 Fluticasone Propion/Salmeterol [Wixela 250-50 Inhub] 1 inh PO DAILY 03/15/20 Metoprolol Succinate 50 mg PO DAILY 03/15/20 diltiaZEM CD [Cardizem Cd] 240 mg PO DAILY 03/15/20 Objective - Vital Signs/Intake & Output Vital Signs: Vital Signs x48h Temp Pulse Pulse Resp BP Pulse Ox 03/24/20 16:45 73 24 03/24/20 15:48 36.8 C 72 20 102/72 88 L 03/24/20 14:10 37.1 C 77 24 104/71 89 L 03/24/20 13:15 69 24 Intake & Output: Intake & Output 03/21/20 03/22/20 03/23/20 03/24/20 23:59 23:59 23:59 23:59 Intake Total 696 1010 1170 420 Output Total 2250 200 Balance 696 -1240 970 420 - Objective General Appearance: positive: No acute distress, Alert. negative: Lethargic Eyes Bilateral: positive: Normal inspection, PERRL, No lid inflammation ENT: positive: ENT inspection nml, No signs of dehydration. negative: Purulent nasal drainage Neck: positive: Nml inspection, Thyroid nml, Trachea midline. negative: Thyromegaly, Stiff neck Respiratory: positive: Chest non-tender, No respiratory distress, Other (diminished lung sound bilaterally). negative: Wheezes, Rales, Rhonchi Cardiovascular: positive: Regular rate & rhythm, No murmur. negative: Tachycardia, Bradycardia, Systolic murmur, Diastolic murmur Peripheral Pulses: 2+ Radial (R), 2+ Radial (L) Abdomen: positive: Non-tender, Nml bowel sounds, No distention. negative: Tenderness, Guarding, Rebound Back: positive: Nml inspection Skin: positive: Color nml, No rash, Warm, Dry. negative: Cyanosis, Diaphoresis, Pallor Extremities: positive: Non-tender, Full ROM, Nml appearance. negative: Calf tenderness Neurologic/Psychiatric: positive: Oriented x3, Motor nml, Sensation nml. negative: Weakness, Sensory loss, Facial droop, Slurred/abnml speech, Depressed mood/affect - Lab Results Fish Bones: 03/24/20 05:05 03/24/20 05:05 Other Labs: Lab Results x24hrs 03/24/20 03/24/20 03/24/20 Range/Units 05:05 05:05 05:05 WBC 9.2 (4.8-10.8) x10^3/uL RBC 4.50 (4.20-5.40) 10^6/uL Hgb 14.3 (12.0-16.0) g/dL Hct 46.2 (37.0-47.0) % MCV 102.7 H (81.0-99.0) fL MCH 31.8 H (27.0-31.0) pg MCHC 31.0 L (32.0-36.0) g/dL RDW 13.9 (12.0-15.0) % Plt Count 196 (130-450) 10^3/uL MPV 9.9 (7.9-10.8) fL Neut # (Auto) 6.8 H (1.5-6.6) 10^3/uL Lymph # (Auto) 1.5 (1.5-3.5) 10^3/uL Faulk # (Auto) 0.9 (0.0-1.0) 10^3/uL Eos # (Auto) 0.0 (0.0-0.7) 10^3/uL Baso # (Auto) 0.0 (0.0-0.1) 10^3/uL Absolute Nucleated RBC 0.00 x10^3/uL Nucleated RBC % 0.0 /100WBC Sodium 139 (135-145) mmol/L Potassium 3.9 (3.5-5.0) mmol/L Chloride 83 L (101-111) mmol/L Carbon Dioxide > 45 H* (21-32) mmol/L Anion Gap 9.0 (6-13) BUN 16 (6-20) mg/dL Creatinine 0.6 (0.4-1.0) mg/dL Estimated GFR (MDRD) 100 (>89) Glucose 116 H (70-100) mg/dL Calcium 8.6 (8.5-10.3) mg/dL B-Natriuretic Peptide 934 H (5-100) pg/mL ABX Reporting Has patient been on IV antibiotics over the past 48 hours?: No Sepsis Event Note (H) - Evaluation Current Stage of Sepsis: Ruled out Assessment/Plan - Problem List (1) Acute on chronic respiratory failure with hypercapnia Impression: 03/24 pt remain 88-91 sat on 2 liter of O2. pt is alert and oriented plus three. pt feel comfortable without acute respiratory distress. she has no confusion or hallucination. she report she is ready to be d/c on tomorrow to home. because pt is clinic stable, we will not test ABG now. pt has hx of chronic CO2 retention, and elevated bicarbonate to compensate to elevated CO2. pt has normal PH in the last ABG test. pt hope to have palliative care consult. palliative care did visit her. she had discussed her care plan with palliative care Renata. We will continue supplemental oxygen in the 2 L, continue breathing treatment with RT consult, followup with palliative care as well. Patient remain 88-90 sats on 1.5 liter of O2 in most of her day time except she was at exertion or bend position per RT report. Patient stay comfortably without respiratory distress. Patient is alert and orientated today, She has no confusion or hallucination reported on today. Clinically it is not indicated to have new ABG for patient. In yesterday afternoon ABG reveal pt had normal PH, reduced PCO2 75, HCO3 increased likely for compensation for the hypercapnia. it is improved. Patient request palliative care on today. yesterday provider discussed the palliative care with pt as well, pt also requested. Palliative care will see patient on tomorrow (2) Atrial fibrillation with RVR Impression: 03/24 HR is good controlled now around 70. continue metoprolol, cardizem, and digoxin, monitor digoxin serum concentration. Patient has been on very difficulty position to control her heart before. Now her HR is controlled. her BP is slight lower now. will continue daily Metoprolol and reduce QPM metoprolol dosage, continue digoxin which was tested in the [facility] arrange, Cardizem and Pradaxa for anticoagulation. (3) diastolic heart failure Impression: 03/24 ECHO reveal pt has moderate right heart abnormal pressure, pt has mild to moderate bilateral lower extremities edema, and elevated BNP. after pt was given diuretic, her BNP is down to 900 from 1100. will continue give once Lasix, precaution pt's chronic CO2 retention, continue vital and lab monitor. continue beta cadence, pradaxa (4) pulmonary hypertension Impression: In new echo, patient had preserved EF but increased RVSP to 70mmHG and with moderate right heart abnormal pressure. Patient also presented mild bilateral lower extremity edema. BNP was 1142, increased from prior study. Give a dosage of Lasix and ordered spironolactone for patient. Continue vital signs to monitor patient (5) Visual hallucinations Impression: resolved. pt has no hallucination or confusion on today. (6) COPD exacerbation Impression: Agree it was resolved. discontinue steroids and antibiotics.continue breath treatment and supplemental oxygen for goal saturation greater than 88%.
[2020-03-24] MEDS ORDERED: LORazepam 1 MG TABLET PO PRN (18:08)
--- NOTE | 2020-03-24 20:02 | CONSULTATION NOTE ---
Palliative Care Consultation - Referral Referring Provider: Walter BHATTI Time of Visit: 9024-1941 Referral setting: Hospitalized patient Referral Reason: Goals of Care/Advanced COPD - Information Sources Records reviewed: Previous records reviewed History/Review of Systems obtained from: Patient - History of Present Illness Brief History of Present Illness: This is a complicated [age]-year-old woman who with a history of severe COPD, and oxygen at home, should be supported by [facility] but has not accepted ongoing support related to cost factors. She does have a history of chronic atrial fib, has had difficulty this hospitalization with control, she is also had 2 to 3 days of hallucinations, that currently have cleared. Patient is aware that she did have this episode, denies any recurrence today. She also is known acute heart failure with preserved ejection fraction, is getting diuresed today, and continues to have hypercapnia. Patient has been hospitalized now for the fourth time, she reports she dislikes hospitalization, and feels she has had PTSD related to this. Patient does perceive her current quality of life is continuing to decline, she reports she has had persistent "gut ache/stomach pain ongoing now for 3 years since she had her abdominal surgery. She reports she eats about once a day, she has significant pain and discomfort at her sternal notch, and back with scoliosis, she reports the only way she is comfortable is laying flat out of bed, hyperextended over her pillows. She says she spends most of her time this way, and is quite sedentary. Patient fluctuates in her reporting of support, she reports she has 2 friends Bhupinder and Kulwant who provide intermittent support, she describes herself as "sick of being sick". She reports she was feeling very down and depressed yesterday, is feeling somewhat better today. She reports she does not worry about what the future will bring, and does recall the conversation with Dr. Mast regarding goals of care. She alternately agreed to talk talk about goals of care, and then also was paranoid somewhat if sharing, discussed we could move forward with just conversation and no decisions needed to be made. She was in agreement. Medical/Surgical History - Past Medical History Cardiovascular: reports: Atrial fibrillation, Hypertension Respiratory: reports: COPD Neuro: None Endocrine/Autoimmune: reports: None GI: reports: Other (persistant stomach pain) CORE FILER: reports: Uterine cancer : reports: None HEENT: reports: None Psych: reports: Depression, Anxiety Musculoskeletal: reports: Osteoarthritis, Fatigue, Scoliosis (severe), Chronic back pain Derm: reports: None MRSA Hx?: No - Past Surgical History General: reports: Appendectomy /CORE FILER: reports: Hysterectomy, Oophrectomy HEENT: reports: Tonsil/Adenoidectomy - Substance History Use: Uses substance without health or social issues: Tobacco (reports quit smoking again over 2 weeks ago) Social History - Living Situation Living arrangement: At home Living Situation: Alone Support System: Patient reports she lives in her current apartment, for about 12 years. She has been 20 and with assisted living, though dislikes people in her space. She is quite distressful as far as hiring someone, is aware she needs more help. When asked how she would move forward with this, if she would need help and assistance with this, she says she would do it herself. She reports she dislikes getting up and answering the door, when suggested home health support, and would not want any other players involved. 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 Family History - Family History Family History: Mother: (just this last september; twin sister 5 years ago/ brother 4 years ago), Father: , Sister: Family History Comment/Other: Has one son, AMOS, and daughter Nerissa who lives in a intermediate with a disability, 30 years old, she says she has another child but did not want to talk about it Medications/Allergies - Medications Active Medication List: Active Medications Acetaminophen (Tylenol) 650 mg PO Q4HR PRN PRN Reason: Pain or Fever > 38C (100.4F) Last Admin: 03/24/20 04:08 Dose: 650 mg Documented by: Albuterol () 2.5 mg INH RTQ4H PRN PRN Reason: Wheezing Last Admin: 03/24/20 16:45 Dose: 2.5 mg Documented by: Benzonatate (Tessalon) 100 mg PO TID PRN PRN Reason: Cough Last Admin: 03/24/20 13:41 Dose: 100 mg Documented by: Budesonide (Pulmicort) 0.5 mg INH RTBID MATTHEW Last Admin: 03/24/20 08:50 Dose: 0.5 mg Documented by: Calcium Carbonate/Glycine (Tums) 500 mg PO TID PRN PRN Reason: Heartburn Last Admin: 03/24/20 16:18 Dose: 500 mg Documented by: Dabigatran (Pradaxa) 150 mg PO BID [facility] Last Admin: 03/24/20 09:29 Dose: 150 mg Documented by: Digoxin (Lanoxin) 125 mcg PO DAILY [facility] Last Admin: 03/24/20 09:30 Dose: 125 mcg Documented by: Diltiazem HCl (Cardizem Cd) 360 mg PO DAILY [facility] Last Admin: 03/24/20 09:30 Dose: 360 mg Documented by: Famotidine (Pepcid) 20 mg PO BID [facility] Last Admin: 03/24/20 09:30 Dose: 20 mg Documented by: Guaifenesin (Mucinex) 600 mg PO BID [facility] Last Admin: 03/24/20 09:31 Dose: 600 mg Documented by: Ipratropium Waldron (Atrovent) 0.5 mg INH RTQID [facility] Last Admin: 03/24/20 16:45 Dose: 0.5 mg Documented by: Lorazepam (Ativan) 1 mg PO TID PRN PRN Reason: NEEDED PER PROVIDER ORDERS Last Admin: 03/24/20 13:41 Dose: 1 mg Documented by: Metoprolol Succinate (Toprol Xl) 75 mg PO DAILY [facility] Last Admin: 03/24/20 09:28 Dose: 75 mg Documented by: Metoprolol Succinate (Toprol Xl) 50 mg PO QPM [facility] Last Admin: 03/23/20 21:05 Dose: 50 mg Documented by: Montelukast Sodium (Singulair) 10 mg PO QPM [facility] Last Admin: 03/23/20 21:05 Dose: 10 mg Documented by: Multi-Ingredient Mouthwash/Gargle () 30 ml PO Q3H PRN PRN Reason: Abdominal Pain Last Admin: 03/23/20 09:43 Dose: 30 ml Documented by: Nicotine (Nicoderm) 1 patch TOP DAILY [facility] Last Admin: 03/24/20 09:39 Dose: 1 patch Documented by: Ondansetron HCl (Zofran Inj) 4 mg IVP Q6HR PRN PRN Reason: Nausea / Vomiting Last Admin: 03/23/20 10:21 Dose: 4 mg Documented by: Saccharomyces Boulardii (Florastor) 250 mg PO BIDWM [facility] Last Admin: 03/24/20 16:18 Dose: 250 mg Documented by: Sodium Chloride (Normal Saline Flush 0.9%) 10 ml IVP PRN PRN PRN Reason: NEEDED PER PROVIDER ORDERS Last Admin: 03/16/20 14:31 Dose: 10 ml Documented by: Sodium Chloride (Normal Saline Flush 0.9%) 10 ml IVP 0100,0900,1700 [facility] Last Admin: 03/24/20 16:18 Dose: 10 ml Documented by: Spironolactone (Aldactone) 25 mg PO DAILY [facility] Last Admin: 03/24/20 09:28 Dose: 25 mg Documented by: Throat Lozenges (Cepacol) 1 lozenge MM Q2HR PRN PRN Reason: Throat pain Last Admin: 03/24/20 04:09 Dose: 1 lozenge Documented by: Ipratropium/Albuterol [Combivent Respimat] 1 puffs INH BID 03/18/17 Albuterol 2.5 mg INH Q4H PRN 04/18/17 LORazepam [Lorazepam] 1 mg PO TID PRN 06/18/19 Dabigatran Etexilate Mesylate [Pradaxa] 150 mg PO BID 03/15/20 Fluticasone Propion/Salmeterol [Wixela 250-50 Inhub] 1 inh PO DAILY 03/15/20 Metoprolol Succinate 50 mg PO DAILY 03/15/20 diltiaZEM CD [Cardizem Cd] 240 mg PO DAILY 03/15/20 - Allergies Allergies/Adverse Reactions: Allergies Allergy/AdvReac Type Severity Reaction Status Date / Time iron Allergy Unknown Verified 03/15/20 12:26 Review of Systems - Constitutional Constitutional: reports: Fatigue, Poor appetite, Weight stable (likes weight between 125-130; eats one meal daily attributes this to stomach pain since surgery for uterine cancer). denies: Fever, Chills - Cardiovascular Cardiovascular: reports: Edema, Exertional dyspnea, Decr. exercise tolerance. denies: Chest pain - Respiratory Respiratory: reports: SOB with exertion. denies: Wheezing, SOB at rest - Gastrointestinal Gastrointestinal: reports: Abdominal pain (persistent under sternum;), Reflux/heartburn, Bloating, Poor appetite, Early satiety. denies: Nausea - Genitourinary Genitourinary: reports: Frequency, Urgency - Musculoskeletal Musculoskeletal: reports: Back pain (only way comfortable is laying flat out with head tipped back related to her worsening scoliosis), Stiffness, Limited range of motion, Muscle weakness - Integumentary Integumentary: reports: Dryness - Neurological Neurological: reports: General weakness, Dizziness, Memory problems - Psychiatric Psychiatric: reports: Anxiety (started having panic attacks in May; stopped driving; used lorazepam), Delusions (aware was having over last couple of days; reports would not have believed it except she tried to video it and send it to every one and nothing was there), Hallucinations - Hematologic/Lymphatic Hematologic/Lymphatic: reports: Recurrent infections (fourth hospitalization this year;) - All Other Systems All Other Systems: reports: Other (limited related to patients reluctance to share vascilattes during interview) Physical Exam - Vital Signs Vital Signs: Vital Signs x48h Temp Pulse Pulse Resp BP Pulse Ox 03/24/20 16:45 73 24 03/24/20 15:48 36.8 C 72 20 102/72 88 L 03/24/20 14:10 37.1 C 77 24 104/71 89 L 03/24/20 13:15 69 24 - Physical Exam General Appearance: positive: No acute distress, Alert Eyes Bilateral: positive: Other (perioribital edema) ENT: positive: No signs of dehydration Neck: positive: Trachea midline Cardiovascular: positive: Regular rate & rhythm Respiratory: positive: No respiratory distress (ambulated independently several times to bathroom during interview; no noted respiratory distress) Abdomen: positive: Soft Skin: positive: Pallor, Dryness, Bruising Extremities: positive: Pedal edema (1+ up to knees) Neurologic/Psychiatric: positive: Oriented x3, Mood/affect nml, Weakness, Flat affect Palliative Care - POLST Patient has POLST: No POLST Status: Full Code Pain: Pain unchanged, Location (mid thoracic back; attributes to scoliosis; does not take pain meds but positions flat) Feelings of wellbeing/Perceived Quality of Life: Fair, Worsening Sleep: Variable sleep pattern - Palliative Care Discussion: When asked about her understanding of her current illness, she reports that she keeps getting "carbon dioxide poisoning". She does perceive her functional status has deteriorated, she reports she is ready to go home. She is said more than when she is sick of being sick and is surprised she is not by now, feeling like she is going downhill. When asked what brings her mary, she very much enjoys her relationship with her daughter Nerissa, she has felt significant loss not being able to see her since before the pandemic, she is in a intermediate with limited visitation. They do talk at least daily, she is torn as far as preparing her for her eventual , but is finding less and less things that provide her quality of life. In context of future support, patient reports people have talked to her about assisted living. She does enjoy the hospital stay in the context that meals are delivered, she does have assistance with bathing, and has less things that she needs to worry about. On the other hand she likes her independence, though does admit to decreasing and declining functional status. She feels her persistent chronic abdominal pain impacts her quality of life significantly as she always feels sick. And though she has a couple close friends, she feels very isolated. She likes being alone, but on the other hand expresses concerns about isolation and loneliness. Revisited conversation regarding CODE STATUS. She reports she fluctuates as far as whether she wants resuscitation or not. She does though express she does not want to be intubated. Though unclear if she understands the implications regarding this, given she wants to be full code. She is concerned as she has had resuscitation in the past, worried about being able to tolerate her recover from if she had rib fractures again, and concerned about her quality of life overall. She reports she was quite depressed yesterday, and might have given me a different answer as far as DO NOT RESUSCITATE. Though she is thinking of changing to DNAR. Today she feels like life is worth living, and looking forward to going home. Counseling provided and attempt to explain the role of palliative care, she still "does not want anybody coming in her home", we discussed it would be myself revisiting her to follow along as she tries to continue to make decisions regarding weighing benefits and burdens of ongoing and further interventions. She does not feel today, she is ready to look at end-of-life planning or focusing just on comfort, did discuss the role of hospice as comfort focused care, but she does not know or want to commit whether she would come back to the hospital again or not. When asked if she would trust to be her D POA or make decisions for her, she has a complex relationship with her son, at this point it would default to him, does not feel her friend Kulwant would want that responsibilty. Tried to provide education regarding the role of a D POA, would be in the context of when she is no longer able to make decisions for herself, and would be incumbent to communicate what is most important to her and what is acceptable quality of life. Counseling provided regarding the POLST again, and framing it as allowing natural , particularly in her expressed wishes more than once not to be intubated. Patient exhibits intermittent paranoia about what I am writing down, what I may or may not share, and reviewed trying to get her wishes some writing so we know how best to care for her. Results - Lab Results Lab results reviewed: Yes Fish Bones: 03/24/20 05:05 03/24/20 05:05 Lab and Imaging Results: Lab Results x24hrs 03/24/20 03/24/20 03/24/20 Range/Units 05:05 05:05 05:05 WBC 9.2 (4.8-10.8) x10^3/uL RBC 4.50 (4.20-5.40) 10^6/uL Hgb 14.3 (12.0-16.0) g/dL Hct 46.2 (37.0-47.0) % MCV 102.7 H (81.0-99.0) fL MCH 31.8 H (27.0-31.0) pg MCHC 31.0 L (32.0-36.0) g/dL RDW 13.9 (12.0-15.0) % Plt Count 196 (130-450) 10^3/uL MPV 9.9 (7.9-10.8) fL Neut # (Auto) 6.8 H (1.5-6.6) 10^3/uL Lymph # (Auto) 1.5 (1.5-3.5) 10^3/uL Marshall # (Auto) 0.9 (0.0-1.0) 10^3/uL Eos # (Auto) 0.0 (0.0-0.7) 10^3/uL Baso # (Auto) 0.0 (0.0-0.1) 10^3/uL Absolute Nucleated RBC 0.00 x10^3/uL Nucleated RBC % 0.0 /100WBC Sodium 139 (135-145) mmol/L Potassium 3.9 (3.5-5.0) mmol/L Chloride 83 L (101-111) mmol/L Carbon Dioxide > 45 H* (21-32) mmol/L Anion Gap 9.0 (6-13) BUN 16 (6-20) mg/dL Creatinine 0.6 (0.4-1.0) mg/dL Estimated GFR (MDRD) 100 (>89) Glucose 116 H (70-100) mg/dL Calcium 8.6 (8.5-10.3) mg/dL B-Natriuretic Peptide 934 H (5-100) pg/mL Impression and Recommendations - Palliative Care Impression: This is a complex 64-year-old woman with advanced COPD, that continues to fluctuate as far as her messaging what her goals of care may be. Unfortunately both her functional and cognitive decline as well as her recent episodes of hallucinations and confusion, make it difficult to be able to define or identify clear delineated goals. Patient does present with ambiguity, but does acknowledge declining quality of life, and concern for her worsening health. Palliative care asked to see patient to further explore goals of care, and advan javon care planning, as well as follow in the outpatient setting. Patient presents many barriers and participating not only with current goals of care conversation, but willingness to accept support in the future. Recommendations/Counseling Done: 1. Acute on chronic respiratory failure with hypoxia and hypercapnia. Continues to be of great concern, she denies any hallucinations today, but continues with worsening numbers. She denies any respiratory distress, is actually anxious to transition home. At this point in time though she would benefit from [facility], appears she is continue to refuse further support regarding this attributing to cost. Patient does have very little insight into the seriousness of her condition, though she does admit to declining quality of life, and concern regarding now her fourth hospitalization. She remains at high risk for recurre nt hospitalization, given the severity of her illness, concern for social support, and unclear regarding compliance of medical treatment. 2. Anxiety. Multifactorial in origin, patient has darted in late May on benzodiazepines, continues with fairly frequent use, perceiving benefit both for breathing and for her ongoing discomfort. Patient does have some social support, does appear to push many people away, and provide many barriers for getting her more assistance. Did reach out to son, unable to leave a message. Patient reports has resources that she can call, remains quite hesitant in the context of the pandemic, of bringing more people in her home plus just how she perceives her own abilities to be able to care for herself. She does feel her friends are her son, would provide her support and assistance if she were to allow. 3. Advanced care planning. Counseling provided regarding the role of palliative care, patient presents many barriers both in the context of current g oals of care conversation, as well as future support. Did get permission to speak with her son, though reports he is very difficult to get hold of. Patient fluctuates as far as DNR versus allowing natural , she did express several times the conversation she did not want to be on a ventilator, but she was not able or ready to commit to any further decisions today. Counseling provided and further conversation regarding POLST, reviewed DNA R/AND does not mean do not care, will continue provide interventions in the context of what patient is wanting to accept. Did encourage her to have further conversations or delineate who she really would like as her D POA, at this point in time she is leaning towards her son "AMOS", who would by default be decision-maker given [place] state law, as daughter would not be able to provide input. Patient did agree for myself to reach out by text sometime after discharge, and offer visit, that she may or may not be willing to accept. Time spent trying to build rapport, expect patient will be hospitalized again, and can continue to provide support through decision-making process. Time Spent: 75 minutes with greater than 50% of this done in counseling regarding goals of care, role of palliative care, patient's perspective on her current journey, and anticipatory guidance.
[2020-03-24] MEDS: MONTELUKAST 10 MG TABLET PO SCH (21:54)
[2020-03-24 22:30] LABS: ABG BASE EXCESS 20.1 mmol/L (-2.0-3.0); ABG HCO3 50.3 mmol/L (22.0-26.0); ALLEN TEST POSITIVE
[2020-03-24 22:33] LABS: ABG OXYGEN SATURATION 87 % (94-98); ABG PCO2 83 mmHg (34-45); ABG PO2 53 mmHg (80-100); ABG TCO2 52.9 MMOL/L (21.0-29.0)
[2020-03-24] MEDS ORDERED: MORPHINE 2 MG/ML CARPUJECT IVP PRN (22:37)
[2020-03-25] MEDS: LORazepam 2 MG/ML VIAL IVP PRN ×2 (01:36→09:28)
[2020-03-25 04:25] LABS: ABG PCO2 85 mmHg (34-45); ABG PH 7.37 (7.35-7.45)
[2020-03-25 04:26] LABS: ABG BASE EXCESS 17.3 mmol/L (-2.0-3.0); ABG HCO3 47.8 mmol/L (22.0-26.0); ABG OXYGEN SATURATION 87 % (94-98); ABG PO2 55 mmHg (80-100); ABG TCO2 50.4 MMOL/L (21.0-29.0); ALLEN TEST POSITIVE
[2020-03-25 05:18] LABS: BASOPHILS % (AUTO) 0.1 %; EOSINOPHILS % (AUTO) 0.4 %; HGB - HEMOGLOBIN 13.8 g/dL (12.0-16.0); LYMPHOCYTES # (AUTO) 1.7 10^3/uL (1.5-3.5); LYMPHOCYTES % (AUTO) 19.6 %; MEAN CORPUSCULAR HEMOGLOBIN 30.9 pg (27.0-31.0); MEAN CORPUSCULAR HGB CONC 29.9 g/dL (32.0-36.0); MEAN CORPUSCULAR VOLUME 103.6 fL (81.0-99.0); MEAN PLATELET VOLUME 9.9 fL (7.9-10.8); MONOCYTES # (AUTO) 0.8 10^3/uL (0.0-1.0); MONOCYTES % (AUTO) 9.4 %; NEUTROPHILS # (AUTO) 5.9 10^3/uL (1.5-6.6); NEUTROPHILS % (AUTO) 69.8 %; PLT - PLATELET COUNT 195 10^3/uL (130-450); RED BLOOD COUNT 4.46 10^6/uL (4.20-5.40); WHITE BLOOD COUNT 8.5 x10^3/uL (4.8-10.8)
[2020-03-25 05:31] LABS: BUN - BLOOD UREA NITROGEN 17 mg/dL (6-20); CHLORIDE 82 mmol/L (101-111); CREATININE 0.7 mg/dL (0.4-1.0); GLUCOSE 115 mg/dL (70-100); SODIUM 140 mmol/L (135-145)
[2020-03-25 05:32] LABS: CARBON DIOXIDE - CO2 > 45 mmol/L (21-32)
[2020-03-25 05:35] LABS: DIGOXIN 0.4 ng/mL
[2020-03-25] MEDS: BUDESONIDE 0.5 MG/2 ML NEB INH SCH ×2 (07:06→19:38)
[2020-03-25] MEDS: ALBUTEROL NEB 2.5 MG/3 ML INH PRN ×4 (07:06→19:38)
[2020-03-25] MEDS: IPRATROPIUM 0.2 MG/ML NEB INH SCH ×4 (07:06→19:38)
[2020-03-25] MEDS ORDERED: ethyl alcohoL 62% SWAB AMPULE NAS ONE ×2 (07:10→21:24)
[2020-03-25] MEDS: SODIUM CHLORIDE FLUSH 0.9% 10 ML SYRINGE IVP SCH ×4 (07:20→21:30)
[2020-03-25] MEDS: ethyl alcohoL 62% SWAB AMPULE NAS SCH ×2 (08:54→21:29)
[2020-03-25] MEDS: DABIGATRAN 75 MG CAPSULE PO SCH ×2 (08:54→21:29)
[2020-03-25] MEDS: NICOTINE 7 MG PATCH TOP SCH (08:56)
[2020-03-25] MEDS: SACCHAROMYCES BOULARDII 250 MG CAPSULE PO SCH ×2 (08:58→18:25)
[2020-03-25] MEDS: FAMOTIDINE 20 MG TABLET PO SCH ×2 (08:59→21:29)
[2020-03-25] MEDS: diltiaZEM CD 180 MG CAPSULE PO SCH (08:59)
[2020-03-25] MEDS: SPIRONOLACTONE 25 MG TABLET PO SCH (09:01)
[2020-03-25] MEDS: guaiFENesin 600 MG TABLET PO SCH ×2 (09:01→21:28)
[2020-03-25] MEDS: DIGOXIN 125 MCG TABLET PO SCH (09:01)
[2020-03-25] MEDS: METOPROLOL SUCCINATE 50 MG TABLET PO SCH ×2 (09:04→21:28)
--- NOTE | 2020-03-25 12:20 | PROVIDER PROGRESS NOTE ---
Assessment/Plan - Problem List (1) Acute on chronic respiratory failure with hypercapnia Assessment/Plan: Last evening an ABG was done and showed rising PCO2 and dropping PO2 and the patient was transferred to the ICU to use a BiPAP. A Trilogy machine has been ordered for her in the past and she did not keep it, apparently could not afford it. Will ask for social work to assist with the application from [place] for financial assistance in order for her to get the trilogy machine after this discharge. Will decrease her PRN iv Ativan, which is ordered every 3 hours, to decrease sedation, somnolence, hypopnia and hopefully decrease CO2 retention. Remain in ICU today, use BIPAP until weaned to off. Acceptable oxygen saturation can be 88% in this patient with severe COPD. (2) Atrial fibrillation with RVR Assessment/Plan: She came in with Aung matthews with RVRjostin from the COPD exacerbation, and she needed multiple med adjustments during this admission for rate control. HR is under good control for the past 2 days with HR around 70. Continue metoprolol, cardizem, and digoxin. Monitor digoxin serum concentration intermittently. Continue with Pradaxa for her stroke prophylaxis (3) COPD exacerbation Assessment/Plan: She is nearly at her baseline, not tachypneic, has minimal wheezing. Over the past several months, she has now required oxygen at home. Acceptable O2 sat for a COPDer is 88%, to avoid losing her hypoxic drive to ventilate. Continue with her COPD management (4) Acute on chronic diastolic heart failure Assessment/Plan: Echo was done this admission on 03/24/2020 and showed diastolic heart failure which she has had in the past. Patient head and BNP elevated at 1100 and leg edema. With Lasix IV daily for the past 3 days, this is improved to 800s and today BNP 500s. She is very fluid sensitive and drops her blood pressure when she is over diuresed, also gets contraction alkalosis. We will only use Lasix as needed edema. (5) Pulmonary hypertension with chronic cor pulmonale Assessment/Plan: In new Echo, done this admission, patient had preserved EF but increased RVSP at 70mmHG and with moderate right heart abnormality. She presented with mild bilateral lower extremity edema. BNP was 1142, increased from prior admissions. Give She got a dosage of Lasix daily for 3 days and ordered Spironolactone for patient, with improvement. (6) Visual hallucinations Assessment/Plan: She reported seeing things approximately 3 and 4 days ago. This may have been CO2 narcosis causing confusion. Her son was contacting the Hospitalist provider and hospital administration, concerned about our management of her hallucinations She has had no further hallucinations for about the last 2-days. (7) MRSA carrier Assessment/Plan: She is getting intranasal alcohol treatment every day. MRSA precautions are also listed for her room. (8) Smoker Assessment/Plan: Spite being on home oxygen, she continued to smoke at home. She is on a nicotine patch here. - Current Meds Current Meds: Current Medications Generic Name Dose Route Start Last Admin Trade Name Freq PRN Reason Stop Dose Admin Acetaminophen 650 mg 03/15/20 16:53 03/24/20 04:08 Tylenol PO 650 mg Q4HR PRN Administration Pain or Fever > 38C (100.4F) Albuterol 2.5 mg 03/22/20 10:40 03/25/20 11:04 INH 2.5 mg RTQ4H PRN Administration Wheezing Alcohol 1 amp 03/25/20 09:00 03/25/20 08:54 Nozin ERIKA 1 amp BID MATTHWE Administration Benzonatate 100 mg 03/16/20 03:15 03/24/20 22:40 Tessalon PO 100 mg TID PRN Administration Cough Budesonide 0.5 mg 03/15/20 19:00 03/25/20 07:06 Pulmicort INH 0.5 mg RTBID MATTHEW Administration Calcium Carbonate/Glycine 500 mg 03/20/20 10:00 03/24/20 16:18 Tums PO 500 mg TID PRN Administration Heartburn Dabigatran 150 mg 03/15/20 21:00 03/25/20 08:54 Pradaxa PO 150 mg BID MATTHEW Administration Digoxin 125 mcg 03/20/20 09:00 03/25/20 09:01 Lanoxin PO 125 mcg DAILY MATTHEW Administration Diltiazem HCl 360 mg 03/18/20 09:00 03/25/20 08:59 Cardizem Cd PO 360 mg DAILY MATTHEW Administration Famotidine 20 mg 03/15/20 21:00 03/25/20 08:59 Pepcid PO 20 mg BID MATTHEW Administration Guaifenesin 600 mg 03/15/20 21:00 03/25/20 09:01 Mucinex PO 600 mg BID MATTHEW Administration Ipratropium [place] 0.5 mg 03/15/20 21:00 03/25/20 11:04 Atrovent INH 0.5 mg RTQID MATTHEW Administration Metoprolol Succinate 75 mg 03/24/20 09:00 03/25/20 09:04 Toprol Xl PO 75 mg DAILY MATTHEW Administration Metoprolol Succinate 50 mg 03/23/20 21:00 03/24/20 21:54 Toprol Xl PO 50 mg QPM MATTHEW Administration Montelukast Sodium 10 mg 03/15/20 21:00 03/24/20 21:54 Singulair PO 10 mg QPM MATTHEW Administration Morphine Sulfate 2 mg 03/24/20 22:37 03/25/20 01:36 Morphine (Carpuject) IVP 2 mg Q4HR PRN Administration PAIN Multi-Ingredient Mouthwash/Gargle 30 ml 03/18/20 15:45 03/23/20 09:43 PO 30 ml Q3H PRN Administration Abdominal Pain Nicotine 1 patch 03/20/20 09:00 03/25/20 08:56 Nicoderm TOP 1 patch DAILY MATTHEW Administration Ondansetron HCl 4 mg 03/15/20 16:53 03/23/20 10:21 Zofran Inj IVP 4 mg Q6HR PRN Administration Nausea / Vomiting Saccharomyces Boulardii 250 mg 03/21/20 17:00 03/25/20 08:58 Florastor PO 250 mg BIDWM MATTHEW Administration Sodium Chloride 10 ml 03/15/20 16:53 03/16/20 14:31 Normal Saline Flush 0.9% IVP 10 ml PRN PRN Administration NEEDED PER PROVIDER ORDERS Sodium Chloride 10 ml 03/15/20 17:00 03/25/20 09:02 Normal Saline Flush 0.9% IVP 10 ml 0100,0900,1700 MATTHEW Administration Spironolactone 25 mg 03/24/20 09:00 03/25/20 09:01 Aldactone PO 25 mg DAILY MATTHEW Administration Throat Lozenges 1 lozenge 03/16/20 03:57 03/24/20 04:09 Cepacol MM 1 lozenge Q2HR PRN Administration Throat pain - Lab Result Fish Bone Diagrams: 03/25/20 04:30 03/25/20 04:30 - Additional Planning My Orders: My Active Orders 03/25/20 12:15 LORazepam [Ativan] 0.5 mg PO Q8H PRN Subjective - Subjective Patient Reports: Feeling Better, Resting Comfortably, No Complaints Objective Vital Signs: Vital Signs - 24 hr 03/24/20 03/24/20 03/24/20 13:15 14:10 15:48 Temperature 37.1 C 36.8 C Heart Rate 69 Heart Rate [ 72 Brachial] Heart Rate [ 77 Monitoring electrodes] Respiratory 24 24 20 Rate Blood Pressure 104/71 102/72 [Right Brachial artery] O2 Saturation 89 L 88 L 03/24/20 03/24/20 03/24/20 16:45 20:01 20:08 Temperature 37 C Heart Rate 73 81 Heart Rate [ 69 Brachial] Heart Rate [ Monitoring electrodes] Respiratory 24 18 20 Rate Blood Pressure 110/66 [Right Brachial artery] O2 Saturation 93 03/24/20 03/25/20 03/25/20 23:00 00:00 01:00 Temperature 36.7 C Heart Rate 82 Heart Rate [ Brachial] Heart Rate [ 85 86 Monitoring electrodes] Respiratory 20 20 Rate Blood Pressure 103/81 H 117/80 [Right Brachial artery] O2 Saturation 89 L 91 L 03/25/20 03/25/20 03/25/20 01:51 03:00 04:32 Temperature Heart Rate 94 Heart Rate [ Brachial] Heart Rate [ 70 81 94 Monitoring electrodes] Respiratory 20 21 17 Rate Blood Pressure 112/86 H 101/85 H [Right Brachial artery] O2 Saturation 94 92 92 03/25/20 03/25/20 03/25/20 05:00 06:00 07:00 Temperature 36.8 C Heart Rate Heart Rate [ 93 87 Brachial] Heart Rate [ 80 83 89 Monitoring electrodes] Respiratory 20 20 20 Rate Blood Pressure 114/85 H 116/89 H 113/94 H [Right Brachial artery] O2 Saturation 95 96 97 03/25/20 03/25/20 03/25/20 07:10 08:00 09:00 Temperature Heart Rate 88 Heart Rate [ Brachial] Heart Rate [ 86 89 Monitoring electrodes] Respiratory 18 20 20 Rate Blood Pressure 125/81 H 111/97 H [Right Brachial artery] O2 Saturation 87 L 91 L 03/25/20 03/25/20 03/25/20 10:00 11:00 11:04 Temperature Heart Rate 80 Heart Rate [ Brachial] Heart Rate [ 89 75 Monitoring electrodes] Respiratory 22 22 18 Rate Blood Pressure 103/73 107/85 H [Right Brachial artery] O2 Saturation 95 Oxygen O2 Source Nasal cannula Oxygen Flow Rate 4 I&O (Last 24 Hrs): Intake and Output Totals x24h 03/23/20 03/24/20 03/25/20 23:59 23:59 23:59 Intake Total 8288 483 9503 Output Total 200 185 Balance 970 688 935 HEENT: Mucous membr. moist/pink Neck: Supple Neuro: Non Focal Respiratory: No respiratory distress Extremities: Other (Trace edema) - Results Results: Laboratory Results WBC 8.5 x10^3/uL (4.8-10.8) 03/25/20 04:30 RBC 4.46 10^6/uL (4.20-5.40) 03/25/20 04:30 Hgb 13.8 g/dL (12.0-16.0) 03/25/20 04:30 Hct 46.2 % (37.0-47.0) 03/25/20 04:30 MCV 103.6 fL (81.0-99.0) H 03/25/20 04:30 MCH 30.9 pg (27.0-31.0) 03/25/20 04:30 MCHC 29.9 g/dL (32.0-36.0) L 03/25/20 04:30 RDW 14.0 % (12.0-15.0) 03/25/20 04:30 Plt Count 195 10^3/uL (130-450) 03/25/20 04:30 MPV 9.9 fL (7.9-10.8) 03/25/20 04:30 Neut # (Auto) 5.9 10^3/uL (1.5-6.6) 03/25/20 04:30 Lymph # (Auto) 1.7 10^3/uL (1.5-3.5) 03/25/20 04:30 [place] # (Auto) 0.8 10^3/uL (0.0-1.0) 03/25/20 04:30 Eos # (Auto) 0.0 10^3/uL (0.0-0.7) 03/25/20 04:30 Baso # (Auto) 0.0 10^3/uL (0.0-0.1) 03/25/20 04:30 Absolute Nucleated RBC 0.00 x10^3/uL 03/25/20 04:30 Nucleated RBC % 0.0 /100WBC 03/25/20 04:30 PT 16.6 secs (9.9-12.6) H 03/15/20 13:00 INR 1.5 (0.8-1.2) H 03/15/20 13:00 Bld Gas Analysis Time 0427 03/25/20 04:20 Sample Site LEFT RADIAL 03/25/20 04:20 ABG pH 7.37 (7.35-7.45) 03/25/20 04:20 ABG pCO2 85 mmHg (34-45) H* 03/25/20 04:20 ABG pO2 55 mmHg (80-100) L* 03/25/20 04:20 ABG HCO3 47.8 mmol/L (22.0-26.0) H 03/25/20 04:20 ABG Total CO2 50.4 MMOL/L (21.0-29.0) H* 03/25/20 04:20 ABG O2 Saturation 87 % (94-98) L* 03/25/20 04:20 ABG Base Excess 17.3 mmol/L (-2.0-3.0) H 03/25/20 04:20 William Test POSITIVE 03/25/20 04:20 O2 Delivery Device BiPAP 03/25/20 04:20 O2 Liters/Min 2.00 LPM 03/24/20 21:20 Vent Mode 2 03/22/20 15:40 FiO2 30.00 03/25/20 04:20 EPAP 6 cmH2O 03/25/20 04:20 IPAP 12 cmH2O 03/25/20 04:20 Sodium 140 mmol/L (135-145) 03/25/20 04:30 Potassium 3.8 mmol/L (3.5-5.0) 03/25/20 04:30 Chloride 82 mmol/L (101-111) L 03/25/20 04:30 Carbon Dioxide > 45 mmol/L (21-32) H* 03/25/20 04:30 Anion Gap 11.0 (6-13) 03/25/20 04:30 BUN 17 mg/dL (6-20) 03/25/20 04:30 Creatinine 0.7 mg/dL (0.4-1.0) 03/25/20 04:30 Estimated GFR (MDRD) 84 (>89) L 03/25/20 04:30 Glucose 115 mg/dL (70-100) H 03/25/20 04:30 Calcium 9.0 mg/dL (8.5-10.3) 03/25/20 04:30 Phosphorus 3.5 mg/dL (2.5-4.6) 03/19/20 05:35 Magnesium 2.2 mg/dL (1.7-2.8) 03/19/20 05:35 Total Bilirubin 1.7 mg/dL (0.2-1.0) H 03/15/20 13:00 AST 16 IU/L (10-42) 03/15/20 13:00 ALT < 10 IU/L (10-60) L 03/15/20 13:00 Alkaline Phosphatase 69 IU/L (42-121) 03/15/20 13:00 Ammonia 21.1 umol/L (7-35) 03/23/20 05:00 Troponin I High Sens 5.6 ng/L (2.3-14.8) 03/16/20 09:34 B-Natriuretic Peptide 521 pg/mL (5-100) H 03/25/20 04:30 Total Protein 6.7 g/dL (6.7-8.2) 03/15/20 13:00 Albumin 4.1 g/dL (3.2-5.5) 03/15/20 13:00 Globulin 2.6 g/dL (2.1-4.2) 03/15/20 13:00 Albumin/Globulin Ratio 1.6 (1.0-2.2) 03/15/20 13:00 Lipase 19 U/L (22-51) L 03/15/20 13:00 Nasal Screen MRSA (PCR) POSITIVE (NEGATIVE) A* 03/24/20 23:15 Last Dose Date UNKNOWN 03/25/20 04:30 Last Dose Time UNKNOWN 03/25/20 04:30 Digoxin 0.4 ng/mL 03/25/20 04:30 - Procedures Procedures: Procedures ASSIST W CARDIAC OUTPUT W PULS COMPRESSION, CONTINUOUS (07/13/15) ASSISTANCE WITH RESPIRATORY VENTILATION, 24-96 HRS, CPAP (07/13/15) DRAINAGE OF R PLEURAL CAV WITH DRAIN DEV, PERC APPROACH (07/13/15) EXCISION OF LIVER, OPEN APPROACH, DIAGNOSTIC (10/03/17) INSERTION OF ENDOTRACHEAL AIRWAY INTO TRACHEA, VIA OPENING (07/13/15) INSERTION OF INFUSION DEV INTO SUP VENA CAVA, PERC APPROACH (07/13/15) INSPECTION OF UPPER INTESTINAL TRACT, ENDO (01/21/18) INTRODUCTION OF NUTRITIONAL INTO CENTRAL VEIN, PERC APPROACH (07/13/15) MONITORING OF VENOUS PRESSURE, CENTRAL, PERC APPROACH (07/13/15) REPAIR LEFT INGUINAL REGION, OPEN APPROACH (10/03/17) RESECTION OF APPENDIX, OPEN APPROACH (07/13/15) RESECTION OF BILATERAL FALLOPIAN TUBES, OPEN APPROACH (10/03/17) RESECTION OF BILATERAL OVARIES, OPEN APPROACH (10/03/17) RESECTION OF UTERUS, OPEN APPROACH (10/03/17) RESPIRATORY VENTILATION, 24-96 CONSECUTIVE HOURS (07/13/15) TRANSFUSE NONAUT RED BLOOD CELLS IN PERIPH VEIN, PERC (01/21/18) Sepsis Event Note (H) - Evaluation Current Stage of Sepsis: Ruled out
[2020-03-25] MEDS: GI COCKTAIL 120 ML BOTTLE PO PRN (15:07)
[2020-03-25] MEDS: LORazepam 0.5 MG TABLET PO PRN (19:27)
[2020-03-25] MEDS: MONTELUKAST 10 MG TABLET PO SCH (21:28)
[2020-03-25] MEDS: BENZONATATE 100 MG CAPSULE PO PRN (21:29)
[2020-03-25] MEDS: MORPHINE 2 MG/ML CARPUJECT IVP PRN (21:30)
[2020-03-26] MEDS: LORazepam 0.5 MG TABLET PO PRN ×3 (04:57→20:15)
[2020-03-26] MEDS: SODIUM CHLORIDE FLUSH 0.9% 10 ML SYRINGE IVP PRN (04:58)
[2020-03-26] MEDS: MORPHINE 2 MG/ML CARPUJECT IVP PRN (04:58)
[2020-03-26 05:39] LABS: BASOPHILS % (AUTO) 0.1 %; EOSINOPHILS % (AUTO) 0.2 %; HGB - HEMOGLOBIN 13.4 g/dL (12.0-16.0); LYMPHOCYTES # (AUTO) 1.4 10^3/uL (1.5-3.5); LYMPHOCYTES % (AUTO) 17.4 %; MEAN CORPUSCULAR HEMOGLOBIN 30.9 pg (27.0-31.0); MEAN CORPUSCULAR HGB CONC 30.1 g/dL (32.0-36.0); MEAN CORPUSCULAR VOLUME 102.5 fL (81.0-99.0); MEAN PLATELET VOLUME 10.2 fL (7.9-10.8); MONOCYTES # (AUTO) 0.8 10^3/uL (0.0-1.0); MONOCYTES % (AUTO) 10.3 %; NEUTROPHILS # (AUTO) 5.8 10^3/uL (1.5-6.6); NEUTROPHILS % (AUTO) 71.5 %; PLT - PLATELET COUNT 183 10^3/uL (130-450); RED BLOOD COUNT 4.34 10^6/uL (4.20-5.40); WHITE BLOOD COUNT 8.2 x10^3/uL (4.8-10.8)
[2020-03-26 07:01] LABS: ABG HCO3 43.8 mmol/L (22.0-26.0); ABG PH 7.39 (7.35-7.45)
[2020-03-26 07:02] LABS: ABG BASE EXCESS 14.8 mmol/L (-2.0-3.0); ALLEN TEST POSITIVE
[2020-03-26 07:04] LABS: ABG OXYGEN SATURATION 86 % (94-98); ABG PCO2 75 mmHg (34-45); ABG PO2 52 mmHg (80-100); ABG TCO2 46.1 MMOL/L (21.0-29.0)
[2020-03-26 07:04] LABS: BUN - BLOOD UREA NITROGEN 15 mg/dL (6-20); CHLORIDE 82 mmol/L (101-111); CREATININE 0.6 mg/dL (0.4-1.0); GLUCOSE 102 mg/dL (70-100); MAGNESIUM 1.8 mg/dL (1.7-2.8); SODIUM 138 mmol/L (135-145)
[2020-03-26 07:05] LABS: CARBON DIOXIDE - CO2 > 45 mmol/L (21-32)
--- NOTE | 2020-03-26 07:31 | PROVIDER PROGRESS NOTE ---
Subjective - Prog Note Date Prog Note Date: 03/26/20 - Subjective Subjective: She reports feeling okay overall. She is eager to go home. Still feels a little short of breath. Denies any visual hallucinations. Current Medications - Current Medications Current Medications: Active Medications Acetaminophen (Tylenol) 650 mg PO Q4HR PRN PRN Reason: Pain or Fever > 38C (100.4F) Last Admin: 03/26/20 13:17 Dose: 650 mg Documented by: Albuterol () 2.5 mg INH RTQ4H PRN PRN Reason: Wheezing Last Admin: 03/26/20 13:13 Dose: 2.5 mg Documented by: Alcohol (Nozin) 1 amp ERIKA BID [facility] Last Admin: 03/26/20 09:07 Dose: 1 amp Documented by: Benzonatate (Tessalon) 100 mg PO TID PRN PRN Reason: Cough Last Admin: 03/26/20 08:30 Dose: 100 mg Documented by: Budesonide (Pulmicort) 0.5 mg INH RTBID [facility] Last Admin: 03/26/20 07:56 Dose: 0.5 mg Documented by: Calcium Carbonate/Glycine (Tums) 500 mg PO TID PRN PRN Reason: Heartburn Last Admin: 03/24/20 16:18 Dose: 500 mg Documented by: Dabigatran (Pradaxa) 150 mg PO BID [facility] Last Admin: 03/26/20 09:05 Dose: 150 mg Documented by: Digoxin (Lanoxin) 125 mcg PO DAILY [facility] Last Admin: 03/26/20 09:07 Dose: 125 mcg Documented by: Diltiazem HCl (Cardizem Cd) 360 mg PO DAILY [facility] Last Admin: 03/26/20 09:07 Dose: 360 mg Documented by: Guaifenesin (Mucinex) 600 mg PO BID [facility] Last Admin: 03/26/20 09:08 Dose: 600 mg Documented by: Ipratropium [place] (Atrovent) 0.5 mg INH RTQID [facility] Last Admin: 03/26/20 07:56 Dose: 0.5 mg Documented by: Lorazepam (Ativan) 0.5 mg PO Q8H PRN PRN Reason: Anxiety Last Admin: 03/26/20 13:13 Dose: 0.5 mg Documented by: Metoprolol Succinate (Toprol Xl) 75 mg PO DAILY [facility] Last Admin: 03/26/20 09:09 Dose: 75 mg Documented by: Metoprolol Succinate (Toprol Xl) 50 mg PO QPM [facility] Last Admin: 03/25/20 21:28 Dose: 50 mg Documented by: Montelukast Sodium (Singulair) 10 mg PO QPM [facility] Last Admin: 03/25/20 21:28 Dose: 10 mg Documented by: Multi-Ingredient Mouthwash/Gargle () 30 ml PO Q3H PRN PRN Reason: Abdominal Pain Last Admin: 03/25/20 15:07 Dose: 30 ml Documented by: Nicotine (Nicoderm) 1 patch TOP DAILY [facility] Last Admin: 03/26/20 09:08 Dose: 1 patch Documented by: Ondansetron HCl (Zofran Inj) 4 mg IVP Q6HR PRN PRN Reason: Nausea / Vomiting Last Admin: 03/23/20 10:21 Dose: 4 mg Documented by: Saccharomyces Boulardii (Florastor) 250 mg PO BIDWM [facility] Last Admin: 03/26/20 08:30 Dose: 250 mg Documented by: Sodium Chloride (Normal Saline Flush 0.9%) 10 ml IVP PRN PRN PRN Reason: NEEDED PER PROVIDER ORDERS Last Admin: 03/26/20 04:58 Dose: 10 ml Documented by: Sodium Chloride (Normal Saline Flush 0.9%) 10 ml IVP 0100,0900,1700 [facility] Last Admin: 03/25/20 21:30 Dose: 10 ml Documented by: Spironolactone (Aldactone) 25 mg PO DAILY [facility] Last Admin: 03/26/20 09:08 Dose: 25 mg Documented by: Throat Lozenges (Cepacol) 1 lozenge MM Q2HR PRN PRN Reason: Throat pain Ipratropium/Albuterol [Combivent Respimat] 1 puffs INH BID 03/18/17 Albuterol 2.5 mg INH Q4H PRN 04/18/17 LORazepam [Lorazepam] 1 mg PO TID PRN 06/18/19 Dabigatran Etexilate Mesylate [Pradaxa] 150 mg PO BID 03/15/20 Fluticasone Propion/Salmeterol [[place] 250-50 Inhub] 1 inh PO DAILY 03/15/20 Metoprolol Succinate 50 mg PO DAILY 03/15/20 diltiaZEM CD [Cardizem Cd] 240 mg PO DAILY 03/15/20 Objective - Vital Signs/Intake & Output Reviewed Vital Signs: Yes Vital Signs: Vital Signs Temp Pulse Resp BP Pulse Ox 03/26/20 07:00 76 26 H 124/95 H 94 03/26/20 06:00 70 17 115/85 H 98 03/26/20 05:00 76 17 124/85 H 94 03/26/20 04:00 36.9 C 115 H 20 115/83 H 96 Intake & Output: Intake & Output 03/23/20 03/24/20 03/25/20 03/26/20 23:59 23:59 23:59 23:59 Intake Total 8709 691 8080 420 Output Total 200 835 200 Balance 225 223 5827 220 - Objective General Appearance: positive: No acute distress, Alert Eyes Bilateral: positive: Normal inspection, Conjunctivae nml ENT: positive: ENT inspection nml Neck: positive: Nml inspection Respiratory: positive: No respiratory distress, Other (Diminished throughout.). negative: Wheezes, Rales Cardiovascular: positive: No murmur, Irregularly irregular. negative: Tachycardia, Bradycardia Abdomen: positive: Non-tender, No distention. negative: Tenderness, Guarding, Rebound Skin: positive: Warm, Dry Extremities: positive: Pedal edema (+1 pitting edema in bilateral lower extremities.) Neurologic/Psychiatric: positive: Oriented x3, Motor nml. negative: Disoriented to person, Disoriented to place, Disoriented to time - Lab Results Fish Bones: 03/26/20 04:40 03/26/20 06:44 Other Labs: Lab Results x24hrs 03/26/20 03/26/20 03/26/20 Range/Units 06:45 06:44 04:40 WBC 8.2 (4.8-10.8) x10^3/uL RBC 4.34 (4.20-5.40) 10^6/uL Hgb 13.4 (12.0-16.0) g/dL Hct 44.5 (37.0-47.0) % MCV 102.5 H (81.0-99.0) fL MCH 30.9 (27.0-31.0) pg MCHC 30.1 L (32.0-36.0) g/dL RDW 14.0 (12.0-15.0) % Plt Count 183 (130-450) 10^3/uL MPV 10.2 (7.9-10.8) fL Neut # (Auto) 5.8 (1.5-6.6) 10^3/uL Lymph # (Auto) 1.4 L (1.5-3.5) 10^3/uL [place] # (Auto) 0.8 (0.0-1.0) 10^3/uL Eos # (Auto) 0.0 (0.0-0.7) 10^3/uL Baso # (Auto) 0.0 (0.0-0.1) 10^3/uL Absolute Nucleated RBC 0.00 x10^3/uL Nucleated RBC % 0.0 /100WBC Bld Gas Analysis Time 0655 Sample Site LEFT RADIAL ABG pH 7.39 (7.35-7.45) ABG pCO2 75 H* (34-45) mmHg ABG pO2 52 L* (80-100) mmHg ABG HCO3 43.8 H (22.0-26.0) mmol/L ABG Total CO2 46.1 H* (21.0-29.0) MMOL/L ABG O2 Saturation 86 L* (94-98) % ABG Base Excess 14.8 H (-2.0-3.0) mmol/L William Test POSITIVE O2 Delivery Device BiPAP FiO2 28.00 EPAP 6 cmH2O IPAP 12 cmH2O Sodium 138 (135-145) mmol/L Potassium 4.5 (3.5-5.0) mmol/L Chloride 82 L (101-111) mmol/L Carbon Dioxide > 45 H* (21-32) mmol/L Anion Gap TNP BUN 15 (6-20) mg/dL Creatinine 0.6 (0.4-1.0) mg/dL Estimated GFR (MDRD) 100 (>89) Glucose 102 H (70-100) mg/dL Calcium 9.0 (8.5-10.3) mg/dL Magnesium 1.8 (1.7-2.8) mg/dL Sepsis Event Note (H) - Evaluation Current Stage of Sepsis: Ruled out Assessment/Plan - Problem List (1) Acute on chronic respiratory failure with hypoxia and hypercapnia Impression: She has chronic hypercapnic and hypoxic respiratory failure secondary to her COPD as well as possibly a component of her diastolic heart failure. Her ABG reveals hypercapnia and she has a compensatory metabolic alkalosis. Her pH is at an acceptable range. We will hold off on further BiPAP given her pH is acceptable. We will continue supplemental oxygen for goal saturation greater than 88% given her COPD. We will give her a dose of Diamox today as there may be a component of contraction alkalosis. We will hold off on further diuresis with Lasix at this time although she will need oral Lasix on discharge given the diastolic heart failure. She will benefit from trilogy at home given her significant respiratory failure and we are working with social work to make this more affordable for her. She would likely be able to be discharged home tomorrow or the day after although I would like to see her bicarbonate in the low 40s or high 30s prior to discharge. (2) Acute heart failure with preserved ejection fraction (HFpEF) Impression: A repeat chest x-ray is obtained today which is consistent with pulmonary vascular congestion. Her BNP is improving as well as her lower extremity edema. Given the contraction alkalosis in addition to her chronic hypercapnic respira tory failure with a compensatory metabolic alkalosis, we will give her a one- time dose of Diamox today and hold off on further furosemide. She will need oral Lasix on discharge. We will continue with Aldactone. (3) Atrial fibrillation with RVR Impression: Her heart rate is much better controlled on the current dose of metoprolol, diltiazem and digoxin. We will likely discharge her on this current regimen and she can follow-up on outpatient basis with her primary care provider. (4) DNR (do not resuscitate) discussion Impression: We spoke regarding CODE STATUS once again today and she states that she would like to be a DNR and does not want mechanical ventilation. We will change her CODE STATUS to reflect her wishes. (5) COPD exacerbation Impression: This has since resolved. We will continue her current inhalers and supplemental oxygen for goal saturation greater than 88%. (6) Visual hallucinations Impression: This has resolved. This was likely multifactorial related to lack of sleep and hypercapnia.
[2020-03-26] MEDS: BUDESONIDE 0.5 MG/2 ML NEB INH SCH ×2 (07:56→18:39)
[2020-03-26] MEDS: IPRATROPIUM 0.2 MG/ML NEB INH SCH ×4 (07:56→19:05)
[2020-03-26] MEDS: ALBUTEROL NEB 2.5 MG/3 ML INH PRN ×3 (07:56→18:15)
[2020-03-26] MEDS ORDERED: acetaZOLAMIDE 250 MG TABLET PO ONE (08:00)
[2020-03-26] MEDS: BENZONATATE 100 MG CAPSULE PO PRN ×2 (08:30→20:12)
[2020-03-26] MEDS: SACCHAROMYCES BOULARDII 250 MG CAPSULE PO SCH ×2 (08:30→18:05)
[2020-03-26] MEDS: DABIGATRAN 75 MG CAPSULE PO SCH ×2 (09:05→20:12)
[2020-03-26] MEDS: FAMOTIDINE 20 MG TABLET PO SCH (09:07)
[2020-03-26] MEDS: ethyl alcohoL 62% SWAB AMPULE NAS SCH ×2 (09:07→20:13)
[2020-03-26] MEDS: diltiaZEM CD 180 MG CAPSULE PO SCH (09:07)
[2020-03-26] MEDS: DIGOXIN 125 MCG TABLET PO SCH (09:07)
[2020-03-26] MEDS: NICOTINE 7 MG PATCH TOP SCH (09:08)
[2020-03-26] MEDS: SPIRONOLACTONE 25 MG TABLET PO SCH (09:08)
[2020-03-26] MEDS: guaiFENesin 600 MG TABLET PO SCH ×2 (09:08→20:12)
[2020-03-26] MEDS: METOPROLOL SUCCINATE 50 MG TABLET PO SCH ×2 (09:09→20:15)
[2020-03-26] MEDS: CALCIUM CARBONATE CHEW 500 MG TABLET PO PRN (09:30)
[2020-03-26] MEDS ORDERED: BENZOCAINE/MENTHOL LOZENGE MM PRN (11:02)
[2020-03-26] MEDS: BENZOCAINE/MENTHOL LOZENGE MM PRN (11:15)
[2020-03-26] MEDS: ACETAMINOPHEN 325 MG TABLET PO PRN (13:17)
--- NOTE | 2020-03-26 16:37 | XRAY Report ---
PROCEDURE: Chest 1 View X-Ray INDICATIONS: Dyspnea. COPD. TECHNIQUE: One view of the chest was acquired. COMPARISON: FINDINGS: Surgical changes and devices: None. Lungs and pleura: There are small subpulmonic bilateral pleural effusions and no pneumothorax. Lungs are mildly edematous. Mediastinum: Mediastinal contours appear normal. Heart size is normal. Bones and chest wall: No suspicious bony lesions. Overlying soft tissues appear unremarkable. IMPRESSION: Mild pulmonary edema, mild subpulmonic pleural effusions, suspect cardiogenic etiology. A definite pn eumonia is not found. Reviewed by: Placido Marroquin MD on 03/26/2020 4:36 PM PDT Approved by: Placido Marroquin MD on 03/26/2020 4:36 PM PDT Station ID: [id number]
[2020-03-26] MEDS: SODIUM CHLORIDE FLUSH 0.9% 10 ML SYRINGE IVP SCH ×2 (18:03→20:25)
[2020-03-26] MEDS: MONTELUKAST 10 MG TABLET PO SCH (20:12)
[2020-03-26] MEDS ORDERED: ethyl alcohoL 62% SWAB AMPULE NAS ONE (20:19)
[2020-03-27 06:30] LABS: BASOPHILS % (AUTO) 0.1 %; EOSINOPHILS % (AUTO) 0.2 %; HGB - HEMOGLOBIN 13.9 g/dL (12.0-16.0); LYMPHOCYTES # (AUTO) 1.2 10^3/uL (1.5-3.5); LYMPHOCYTES % (AUTO) 14.1 %; MEAN CORPUSCULAR HEMOGLOBIN 32.1 pg (27.0-31.0); MEAN CORPUSCULAR HGB CONC 31.7 g/dL (32.0-36.0); MEAN CORPUSCULAR VOLUME 101.4 fL (81.0-99.0); MEAN PLATELET VOLUME 9.6 fL (7.9-10.8); MONOCYTES # (AUTO) 0.8 10^3/uL (0.0-1.0); MONOCYTES % (AUTO) 9.5 %; NEUTROPHILS # (AUTO) 6.6 10^3/uL (1.5-6.6); NEUTROPHILS % (AUTO) 75.5 %; PLT - PLATELET COUNT 179 10^3/uL (130-450); RED BLOOD COUNT 4.33 10^6/uL (4.20-5.40); RED CELL DISTRIBUTION WIDTH 14.1 % (12.0-15.0); WHITE BLOOD COUNT 8.7 x10^3/uL (4.8-10.8)
[2020-03-27 06:34] LABS: CALCIUM 9.1 mg/dL (8.5-10.3); CREATININE 0.5 mg/dL (0.4-1.0)
[2020-03-27] MEDS: ALBUTEROL NEB 2.5 MG/3 ML INH PRN ×2 (07:50→11:15)
[2020-03-27] MEDS: IPRATROPIUM 0.2 MG/ML NEB INH SCH ×2 (07:50→11:15)
[2020-03-27] MEDS: BUDESONIDE 0.5 MG/2 ML NEB INH SCH (07:50)
[2020-03-27] MEDS: SODIUM CHLORIDE FLUSH 0.9% 10 ML SYRINGE IVP SCH ×2 (08:37→09:01)
[2020-03-27] MEDS: SACCHAROMYCES BOULARDII 250 MG CAPSULE PO SCH ×2 (08:38→08:40)
[2020-03-27] MEDS: NICOTINE 7 MG PATCH TOP SCH (08:41)
[2020-03-27] MEDS: DABIGATRAN 75 MG CAPSULE PO SCH (08:44)
[2020-03-27] MEDS: METOPROLOL SUCCINATE 50 MG TABLET PO SCH (08:47)
[2020-03-27] MEDS: DIGOXIN 125 MCG TABLET PO SCH (08:49)
[2020-03-27] MEDS: guaiFENesin 600 MG TABLET PO SCH (08:50)
[2020-03-27] MEDS: diltiaZEM CD 180 MG CAPSULE PO SCH (08:52)
[2020-03-27] MEDS: LORazepam 0.5 MG TABLET PO PRN (08:56)
[2020-03-27] MEDS: SPIRONOLACTONE 25 MG TABLET PO SCH (08:59)
[2020-03-27] MEDS: ethyl alcohoL 62% SWAB AMPULE NAS SCH (10:22)
--- NOTE | 2020-03-27 11:50 | Discharge Plan ---
Discharge Plan Problem Reviewed?: Yes Disposition: Home, Self Care Condition: Stable Prescriptions: dilTIAZem HCl [Diltiazem 24Hr ER] 360 mg PO DAILY #30 cap.er.24h Digoxin [Lanoxin] 125 mcg PO DAILY #30 tablet Spironolactone 25 mg PO DAILY #30 tablet Metoprolol Succinate [Toprol Xl] 75 mg PO DAILY #30 tablet Metoprolol Succinate [Toprol Xl] 50 mg PO QPM #30 tablet Diet: Cardiac Activity Restrictions: Activity as Tolerated Health Concerns: You were seen in the hospital because of exacerbation of your COPD. You are treated with steroids and antibiotics. Due to the severity of your COPD, you were slow to improve. Your heart rate had also been elevated during this hospitalization and we needed to increase your diltiazem and start you on a new medication called digoxin. We also increased your metoprolol dose. You required to be in the ICU for BiPAP treatment for period of time as her carbon dioxide levels were elevated. You also required to be on IV Lasix as you had fluid retention. You have now improved and are stable for discharge Plan of Treatment: Please take the increased dose of diltiazem. You will now take 360 mg daily. Stop taking 240 mg. You will now take metoprolol 75 mg in the morning and 50 mg in the evening. You will also take digoxin 125 mg daily. These continue the furosemide 20 mg as you were previously taking. It is recommended that you use 2.5 L of oxygen at rest and to increase this to 5 L with any exertion. It is also recommended that you continue with the trilogy machine machine at night. Assessment: The patient expressed understanding of the treatment plan. Follow-Up Care: [facility] - Pulmonary No Smoking: If you smoke, Please STOP! Call for help. Follow-up with: Mark Reinoso MD [Primary Care Provider] -
--- NOTE | 2020-03-27 12:10 | DISCHARGE SUMMARY ---
"Discharge Summary Admit Date: 03/15/20 Discharge Date: 03/27/20 Discharging Provider: Randell Gill Primary Care Provider: Mark Reinoso Code Status: Do Not Attempt Resuscitation Condition at Discharge: Stable Discharge Disposition: 01 Home, Self Care - DIAGNOSES Admission Diagnoses: COPD exacerbation Respiratory acidosis Atrial fibrillation with rapid ventricular response Dehydration Possible urinary tract infection Discharge Diagnoses with Status of Each Condition: Acute on chronic respiratory failure with hypoxia and hypercapnic - resolved Acute on chronic heart failure with preserved ejection fraction - resolved. Atrial fibrillation with RVR - stable. DO NOT RESUSCITATE discussion COPD exacerbation - resolved. Visual hallucinations - resolved. - HPI History of Present Illness: H&P per Dr. Bennett: This is a 64-year-old white female with a history of severe COPD, on oxygen at home and a trilogy mask ever since her last hospitalization in October 2019. She has a history of chronic afibrillation, on Eliquis, diastolic heart failure, severe mitral regurgitation, history of CO2 narcosis. The patient presents with a complaint of 4 to 5 days of cough with worsening shortness of breath each day. She has no fever. She presented to the ER was found to have atrial relation w ith rapid ventricular response with a rate of 170. She received IV diltiazem 20 mg x 2 and heart rate has improved into the 100-1 10 range. She is being admitted for COPD exacerbation atrial fibrillation with rapid ventricular response. - CONSULTS | PROCEDURES Consultations: Palliative Care. Procedures: Chest x-ray on admission was unremarkable. Chest x-ray on March 26 showed mild pulmonary edema and mild bilateral pleural effusions. - HOSPITAL COURSE Hospital Course: She was admitted to the floor for COPD exacerbation and atrial fibrillation with rapid ventricular response. She was treated with IV Solu-Medrol as well as azithromycin and ceftriaxone. She was continued on her oral diltiazem and metoprolol as well as Pradaxa for the atrial fibrillation. Despite this, she remained tachycardic. Her metoprolol dose was increased to 75 mg in the morning and 50 mg in the evening. Her diltiazem dose was also increased to 360 mg daily. Despite this, she still remained tachycardic. It was felt that the COPD was driving the atrial fibrillation but despite improvement in her respiratory status, she remained tachycardic. She was loaded with digoxin and started on oral digoxin and we were able to finally control her heart rate with this. She was slow to improve from a COPD standpoint as this took about 5 days of treatment to really show improvement which was expected given her prior hospitalizations. Her antibiotics and steroids were discontinued. She still felt a little tachypneic but it was felt that she was no longer in a COPD exacerbation. She was diuresed with Lasix given she had lower extremity edema. The patient also been developed visual hallucinations and was seeing insects on the floor and wall. Multiple ABGs were checked and although her CO2 is elevated in the 70s and 80s, her pH was almost within normal limits. Her bicarbonate did begin to increase from normal to the 40s and it was likely due to compensation given the elevated carbon dioxide. Given she continued to have visual hallucinations, she was placed in the ICU for trial of BiPAP. The visualizations resolved with BiPAP. The Lasix was also discontinued as was felt this was contributing to her contraction alkalosis. She was given Diamox with improvement in her bicarbonate down to the mid 30s. The patient has remained alert and oriented. During this hospitalization, she was seen by palliative care. The patient kept going back and forth regarding being a full code or DNR. The day prior to discharge, she decided to be DNR. An exercise desaturation test was obtained prior to discharge and was found to the patient will need 2- 1/2 L of oxygen at rest and about 5 L of oxygen with exertion. It was also recommended the patient use the trilogy machine at home given the severity of her COPD and chronic respiratory failure. On the day of discharge, her respiratory it varied from the high tens to the low 20s. She felt comfortable and not in distress. He was discharged on the increased dose of metoprolol as well as diltiazem. She was also discharged on digoxin. We will continue Pradaxa for anticoagulation as this was the cheapest NOAC. She will follow-up with her primary care provider. - ALLERGIES Allergies/Adverse Reactions: Allergies Allergy/AdvReac Type Severity Reaction Status Date / Time iron Allergy Unknown Verified 03/15/20 12:26 - MEDICATIONS Home Medications: Ambulatory Orders Medication Instructions Recorded Confirmed Ipratropium/Albuterol [Combivent 1 puffs INH BID 03/18/17 03/15/20 Respimat] Albuterol 2.5 mg INH Q4H PRN 04/18/17 03/15/20 LORazepam [Lorazepam] 1 mg PO TID PRN 06/18/19 03/15/20 Furosemide 20 mg PO DAILY #30 tablet 11/01/19 03/15/20 Montelukast Sodium 10 mg PO QPM #0 11/04/19 03/15/20 Dabigatran Etexilate Mesylate 150 mg PO BID 03/15/20 03/15/20 [Pradaxa] Fluticasone Propion/Salmeterol 1 inh PO DAILY 03/15/20 03/15/20 [Wixela 250-50 Inhub] Digoxin [Lanoxin] 125 mcg PO DAILY #30 tablet 03/27/20 Metoprolol Succinate [Toprol Xl] 50 mg PO QPM #30 tablet 03/27/20 Metoprolol Succinate [Toprol Xl] 75 mg PO DAILY #30 tablet 03/27/20 Spironolactone 25 mg PO DAILY #30 tablet 03/27/20 dilTIAZem HCl [Diltiazem 24Hr ER] 360 mg PO DAILY #30 cap.er.24h 03/27/20 - PHYSICAL EXAM AT DISCHARGE General Appearance: positive: No acute distress, Alert Eyes Bilateral: positive: Normal inspection ENT: positive: ENT inspection nml, Other (Nasal cannul in place.) Neck: positive: Nml inspection Respiratory: positive: No respiratory distress, Other (He was slightly tachypneic but appeared comfortable in bed. Breath sounds are diminished throughout). negative: Wheezes, Rales Cardiovascular: positive: No murmur, Irregularly irregular. negative: Tachycardia, Bradycardia, Systolic murmur Abdomen: positive: No distention, Tenderness (Mild tenderness in epigastric region.). negative: Non-tender, Guarding, Rebound Skin: positive: No rash, Warm, Dry Extremities: positive: Full ROM, Pedal edema (+1 pitting edema in bilateral lower extremities.) Neurologic/Psychiatric: positive: Oriented x3, Motor nml. negative: Disoriented to person, Disoriented to place, Disoriented to time Physical Exam Other/Comments: Vital Signs - 24 hr 03/26/20 03/26/20 03/27/20 18:18 19:39 00:33 Temperature 36.6 C 36.6 C Heart Rate 65 Heart Rate [ 70 65 Monitoring electrodes] Respiratory 20 26 H 26 H Rate Blood Pressure 117/79 118/88 H [Right Brachial artery] O2 Saturation 88 L 92 03/27/20 03/27/20 03/27/20 04:13 07:50 11:15 Temperature Heart Rate 71 72 Heart Rate [ 67 Monitoring electrodes] Respiratory 25 H 28 H 25 H Rate Blood Pressure 134/97 H [Right Brachial artery] O2 Saturation 92 03/27/20 14:30 Temperature 37 C Heart Rate Heart Rate [ 54 L Monitoring electrodes] Respiratory 27 H Rate Blood Pressure 100/66 [Right Brachial artery] O2 Saturation 89 L Oxygen O2 Source Nasal cannula Oxygen Flow Rate 4 - LABS Result Diagrams: 03/27/20 06:20 03/27/20 06:20 Other Lab Results: Laboratory Results - last 24 hr 03/27/20 03/27/20 06:20 06:20 WBC 8.7 RBC 4.33 Hgb 13.9 Hct 43.9 MCV 101.4 H MCH 32.1 H MCHC 31.7 L RDW 14.1 Plt Count 179 MPV 9.6 Neut # (Auto) 6.6 Lymph # (Auto) 1.2 L [place] # (Auto) 0.8 Eos # (Auto) 0.0 Baso # (Auto) 0.0 Absolute Nucleated RBC 0.00 Nucleated RBC % 0.0 Sodium 136 Potassium 4.3 Chloride 96 L Carbon Dioxide 34 H Anion Gap 6.0 BUN 12 Creatinine 0.5 Estimated GFR (MDRD) 123 Glucose 108 H Calcium 9.1 - DIAGNOSTIC IMAGING Diagnostic Imaging Results: Final report reviewed - SEPSIS Current Stage of Sepsis: Ruled out - FOLLOW UP Follow Up: She was asked to follow-up with her primary care provider in 1 week. - TIME SPENT Time Spent in Discharge (Minutes): 36"
[2020-03-27 13:17] VITALS: BP 100/66
== END 2020-03-27 14:42 | disposition home or self-care (01) | DRG 189 ==
LOC: EDBD → EDUNIT# → ED 12:22 → MS2 15:48 → ICU 03-24 23:25
PROVIDERS: ADMIT Internal Medicine; ATTEND Internal Medicine
DX: I48.91 Unspecified atrial fibrillation (principal); J96.22 Acute and chronic respiratory failure with hypercapnia; I50.33 Acute on chronic diastolic (congestive) heart failure; I50.30 Unspecified diastolic (congestive) heart failure; I34.0 Nonrheumatic mitral (valve) insufficiency; R10.9 Unspecified abdominal pain; J44.1 Chronic obstructive pulmonary disease with (acute) exacerbation; I48.20 Chronic atrial fibrillation, unspecified; E87.2 Acidosis; J96.21 Acute and chronic respiratory failure with hypoxia; I11.0 Hypertensive heart disease with heart failure; R44.1 Visual hallucinations; F41.9 Anxiety disorder, unspecified; I08.1 Rheumatic disorders of both mitral and tricuspid valves; I27.29 Other secondary pulmonary hypertension; E87.5 Hyperkalemia; E86.0 Dehydration; F17.200 Nicotine dependence, unspecified, uncomplicated; R35.0 Frequency of micturition; K21.9 Gastro-esophageal reflux disease without esophagitis; R39.15 Urgency of urination; R53.83 Other fatigue; M19.90 Unspecified osteoarthritis, unspecified site; M41.9 Scoliosis, unspecified; G89.29 Other chronic pain; Z66 Do not resuscitate; Z51.5 Encounter for palliative care; Z22.322 Carrier or suspected carrier of Methicillin resistant Staphylococcus aureus; Z99.81 Dependence on supplemental oxygen; Z79.51 Long term (current) use of inhaled steroids; Z79.01 Long term (current) use of anticoagulants; Z79.899 Other long term (current) drug therapy
CPT/HCPCS: 36415; 36600; 71045; 80048; 80053; 80162; 82140; 82803; 83690; 83735; 83880; 84100; 84484; 85025; 85610; 87150; 93005; 93306; 94640; 94660; 96365; 96375; 99223; 99285; 99291; A9270; J1170; J2060; J2765; J7512; J7626; J8499

== ENCOUNTER 2021-02-18 08:00 | Outpatient (CLI) | payer MEDICARE ==
[2021-02-18 17:52] LABS: BASOPHILS # (AUTO) 0.1 10^3/uL (0.0-0.1); BASOPHILS % (AUTO) 0.6 %; EOSINOPHILS # (AUTO) 0.1 10^3/uL (0.0-0.7); EOSINOPHILS % (AUTO) 0.8 %; HGB - HEMOGLOBIN 15.1 g/dL (12.0-16.0); LYMPHOCYTES # (AUTO) 2.3 10^3/uL (1.5-3.5); LYMPHOCYTES % (AUTO) 29.1 %; MEAN CORPUSCULAR HEMOGLOBIN 31.8 pg (27.0-31.0); MEAN CORPUSCULAR HGB CONC 31.5 g/dL (32.0-36.0); MEAN CORPUSCULAR VOLUME 101.1 fL (81.0-99.0); MEAN PLATELET VOLUME 10.2 fL (7.9-10.8); MONOCYTES # (AUTO) 0.6 10^3/uL (0.0-1.0); MONOCYTES % (AUTO) 7.4 %; NEUTROPHILS # (AUTO) 4.8 10^3/uL (1.5-6.6); NEUTROPHILS % (AUTO) 61.7 %; PLT - PLATELET COUNT 297 10^3/uL (130-450); RED BLOOD COUNT 4.75 10^6/uL (4.20-5.40); RED CELL DISTRIBUTION WIDTH 13.7 % (12.0-15.0); WHITE BLOOD COUNT 7.7 x10^3/uL (4.8-10.8)
[2021-02-18 18:07] LABS: ALBUMIN 4.2 g/dL (3.2-5.5); ALBUMIN/GLOBULIN RATIO 1.4 (1.0-2.2); ALKALINE PHOSPHATASE 80 IU/L (42-121); ALT ALANINE AMINOTRANSFERASE 10 IU/L (10-60); AST ASPARTATE AMINOTRANSFERASE 16 IU/L (10-42); BUN - BLOOD UREA NITROGEN 15 mg/dL (6-20); CALCIUM 9.5 mg/dL (8.5-10.3); CARBON DIOXIDE - CO2 33 mmol/L (21-32); CHLORIDE 92 mmol/L (101-111); CHOL/HDL RATIO 3.9 (<4.4); CHOLESTEROL 246 mg/dL; CREATININE 0.8 mg/dL (0.4-1.0); GFR - MDRD 72 (>89); GLUCOSE 94 mg/dL (70-100); HDL CHOLESTEROL 63 mg/dL; LDL CHOLESTEROL,CALCULATED 164 mg/dL; LDL/HDL RATIO 2.6 (<4.4); POTASSIUM 4.3 mmol/L (3.5-5.0); SODIUM 137 mmol/L (135-145); TOTAL PROTEIN 7.2 g/dL (6.7-8.2); TRIGLYCERIDES 96 mg/dL; VLDL CHOLESTEROL 19 mg/dL
[2021-02-18 18:20] LABS: THYROID STIMULATING HORMONE 1.34 uIU/mL (0.34-5.60)
[2021-02-18 20:20] LABS: ESTIMATED AVERAGE GLUCOSE 120 mg/dL (70-100); HEMOGLOBIN A1c% 5.8 % (4.27-6.07)
== END 2021-02-18 08:01 | disposition home or self-care (01) ==
LOC: LAB.WCP 08:00
PROVIDERS: ATTEND Family Medicine
DX: I11.0 Hypertensive heart disease with heart failure (principal); I50.9 Heart failure, unspecified; R73.9 Hyperglycemia, unspecified; J96.20 Acute and chronic respiratory failure, unspecified whether with hypoxia or hypercapnia; M19.90 Unspecified osteoarthritis, unspecified site; I48.91 Unspecified atrial fibrillation; E78.5 Hyperlipidemia, unspecified; J44.9 Chronic obstructive pulmonary disease, unspecified; F41.9 Anxiety disorder, unspecified; F32.9 Major depressive disorder, single episode, unspecified
CPT/HCPCS: 36415; 80053; 80061; 80162; 81599; 83036; 83721; 84443; 85025

== ENCOUNTER → 2022-05-18 | Outpatient (CLI) | payer MEDICARE | END | disposition EMS.NT | LOC: EMS 23:08 | DX: Z03.89 Encounter for observation for other suspected diseases and conditions ruled out (principal) ==

== ENCOUNTER 2022-06-02 00:57 | Outpatient (CLI) | payer MEDICARE | END 2022-06-02 00:58 | disposition short-term general hospital (02) | LOC: EMS 00:57 | DX: R51.9 Headache, unspecified (principal); M25.511 Pain in right shoulder; M79.674 Pain in right toe(s); R53.1 Weakness; R06.02 Shortness of breath; W18.39XA Other fall on same level, initial encounter; Y92.099 Unspecified place in other non-institutional residence as the place of occurrence of the external cause; Z79.01 Long term (current) use of anticoagulants | CPT/HCPCS: A0425; A0427; A0888 ==